=== PATIENT | male | born 1955 | race Caucasian/White ===

== ENCOUNTER 2016-10-31 15:22 | Emergency (ER) | payer OTHER ==
[~2016-10-31] VITALS: Ht 172.7 cm; Wt 144.8 kg
[~2016-10-31 15:22] MED LIST: ALKA SELTZER PO; AMLO-110 PO; ASPEC81 PO; ATEN50TA8 PO; CZR50 PO; ERYT1OIN55 OPR; HOMA5SOL2 OPR; OXYC1TAB3 PO; PANT40TA PO
[2016-10-31 15:29] VITALS: TEMP 36.8; Ht 172.7 cm; Wt 144.8 kg
[2016-10-31] MEDS ORDERED: ZLF/50 PO (15:46)
[2016-10-31] MEDS ORDERED: PREG75CA PO (15:46)
[2016-10-31] MEDS ORDERED: SODIUM CHLORIDE 0.9% 1000ML 1,000 ML IV STA (15:46)
[2016-10-31] MEDS ORDERED: MoRPHine SULFATE 4 MG/ML 1 ML CARP\\VIAL IV STA (15:46)
[2016-10-31] MEDS ORDERED: KLN5X PO (15:46)
--- NOTE | 2016-10-31 15:48 | EMERGENCY ROOM VISIT NOTE ---
History Report prepared by Calvin: Miky De Jesus Under the Supervision of: Dr. Billie Jerome D.O. First contact with patient: 15:28 Chief Complaint: FALL Stated Complaint: FALL, POSSIBLE BROKEN RIBS History of Present Illness The patient is a 60 year old male who presents to the Emergency Room with complaints of right rib pain, secondary to a fall that occurred last night. He rates his pain a 10/10 in severity. At this time, the patient states that he does not think he lost consciousness, but he does not remember falling. Per the , they were at a function yesterday where the patient was play the game "[employer]." When he stepped back to throw a heck bag, his knee popped out of place and fell down. The patient has a past surgical history of titanium rods in his knees. They got his knee back in place and things seemed normal. This is a normal occurrence and happens frequently. He continued enjoying the event and had no new injury/complaints after this fall. When they got home, states he seemed strange and lost his balance. Pt denies noting any specific symptoms other than fatigue when getting out of the car. He fell on the sidewalk face down. Per the patient, this was the fall he did not remember. He just felt unusually tired. After this, per the , she brought him into the house. She states that he was speaking strangely and his mouth looked swollen. However, shortly after this, he returned to baseline. Later in the evening, he fell again in the kitchen. The patient has chronic lower back problems that may require future surgeries. He currently denies any more back pain than usual. He denies any neck pain or pelvic pain. He has a slightly sore forehead from the second fall. He takes Aspirin 81 mg PO daily. He has not taken anything for pain secondary to being out of his Oxycodone prescription that he takes for his lower back and knees. Pt and agree he has been acting normally today. Source of History: patient Onset: Last night Position: chest (right rib) Symptom Intensity: 10/10 Quality: sharp Timing: constant Modifying Factors (Worsening): movement Associated Symptoms: + headache, No LOC, No neck pain, No back pain Note: He denies any arm/shoulder pain. Review of Systems See HPI for pertinent positives & negatives. A total of 10 systems reviewed and were otherwise negative. Past Medical & Surgical Medical Problems: (1) DYSMETABOLIC SYNDROME X (2) HEARTBURN (3) HYPERLIPIDEMIA NEC/NOS (4) HYPERTENSION NOS (5) OBSTRUCTIVE SLEEP APNEA (ADULT) (PEDIATRIC) Family History Omitted secondary to age. Social History Smoking Status: Current Every Day Smoker Alcohol Use: heavy Drug Use: none Marital Status: Housing Status: lives with family Occupation Status: employed Current/Historical Medications Scheduled Amlodipine (Norvasc), 5 MG PO DAILY Aspirin Enteric Coated (Ecotrin Or Generic), 81 MG PO DAILY Atenolol (Tenormin), 50 MG PO QPM Losartan Potassium (Cozaar), 100 MG PO DAILY Oxycodone Ir (Roxicodone Ir), 10 MG PO TID Pantoprazole (Protonix), 40 MG PO BID Sertraline HCl (Sertraline HCl), 50 MG PO DAILY Scheduled PRN Clonazepam (Clonazepam), 0.5 MG PO BID PRN for Anxiety Diazepam (Valium), 2.5 MG PO HS PRN for Pain Hydrocodone/Acetaminophen (Vaughn 10/325 Tab), 1 TAB PO Q6 PRN for Pain Allergies Coded Allergies: Ketorolac Tromethamine (Unverified Allergy, Unknown, BURNING SENSATION, ) Tramadol (Verified Allergy, Unknown, GI UPSET, 10/31/16) Physical Exam Vital Signs Date Time Temp Pulse Resp B/P (MAP) Pulse Ox O2 Delivery O2 Flow Rate FiO2 10/31/16 18:50 78 22 142/88 98 10/31/16 15:29 36.8 95 20 154/93 96 Room Air Physical Exam GENERAL: alert, well appearing, well nourished, no distress, non-toxic EYE EXAM: normal conjunctiva, PERRL and EOM's grossly intact OROPHARYNX: no exudate, no erythema, lips, buccal mucosa, and tongue normal and mucous membranes are moist NECK: supple, no nuchal rigidity, no adenopathy, non-tender LUNGS: Clear to auscultation. Normal chest wall mechanics HEART: no murmurs, S1 normal and S2 normal CHEST: Tenderness along the right inferior anterior ribs. No crepitus or ecchymosis. No evidence of trauma. ABDOMEN: abdomen soft, non-tender, normo-active bowel sounds, no masses, no rebound or guarding. BACK: Back is symmetrical on inspection and there is no deformity, no midline tenderness, no CVA tenderness. SKIN: no rashes and no bruising UPPER EXTREMITIES: upper extremities are grossly normal. No evidence of trauma or joint effusion. LOWER EXTREMITIES: No pitting edema. No evidence of trauma or joint effusion. NEURO EXAM: Normal sensorium, cranial nerves II-XII grossly intact, normal speech, no gross weakness of arms, no gross weakness of legs. Medical Decision & Procedures ER Provider Diagnostic Interpretation: Radiology results have been interpreted by the radiologist and reviewed by me. HEAD CT NONCONTRAST CT DOSE: HISTORY: head injury, LOC TECHNIQUE: Multiaxial CT images of the head were performed without the use of intravenous contrast. Automated exposure control was utilized for this study. Comparison: Head CT 12/05/2014. Findings: The paranasal sinuses and mastoid air cells are clear. The calvarium and skull base are intact. The ventricles and sulci are within normal limits. There is no mass, hematoma, midline shift, or acute infarct. Impression: No acute intracranial abnormality. Electronically signed by: Rojelio Meredith M.D. 10/31/2016 5:21 PM Dictated Date/Time: 10/31/2016 5:[address] DOSE: 4889.15 mGy.cm HISTORY: head injury, loc TECHNIQUE: Multiaxial CT images of the cervical spine were performed and reformatted in the sagittal and coronal plane without the use of contrast. COMPARISON: None. FINDINGS: No fractures. No subluxation. Prevertebral soft tissues and the C1-C2 interval are intact. No pneumothorax. Moderate disc space narrowing at C5-C6 and C6-C7. Mild disc space narrowing at C4-C5. IMPRESSION: No fractures within the cervical spine. Electronically signed by: Rojelio Meredith M.D. 10/31/2016 5:25 PM Dictated Date/Time: 10/31/2016 5:21 PM CHEST, ABDOMEN AND PELVIS CT WITH CONTRAST CT DOSE: HISTORY: right rib pain, short of breath, trauma. Right upper quadrant abdominal pain. TECHNIQUE: Multiaxial CT images of the chest , abdomen and pelvis were performed following the intravenous administration of contrast. COMPARISON: None. FINDINGS: The central airways are patent. No pleural effusions. No pneumothorax. Mild emphysema. A 6 mm groundglass nodule within the left upper lobe on image 42. Calcified granuloma the base of the right middle lobe. Nondisplaced right anterior sixth and seventh rib fractures. Bilateral gynecomastia. The heart is normal in size. No mediastinal or hilar lymphadenopathy. Normal thoracic aorta. Small fat and fluid containing supraumbilical hernias. Small fat-containing right inguinal hernia. Nodular contour to the liver consistent with cirrhosis. The gallbladder, adrenal glands, and pancreas are unremarkable. The spleen is top normal in size. Stable 1.2 cm hypodense lesion within the left kidney. This favors a cyst. The right kidney enhances normally. No hydronephrosis. No retroperitoneal lymphadenopathy. Normal bladder. No bowel wall thickening or obstruction. Trace fluid within the deep pelvis and within the right lower quadrant. Mild infiltration of the fat lateral to the cecum and ascending colon. IMPRESSION: 1. Nondisplaced right anterior sixth and seventh rib fractures. No pneumothorax. 2. A 6 mm groundglass nodule within the left upper lobe. Please refer to the chart below for recommended follow-up. 3. Trace fluid within the pelvic cul-de-sac and within the right lower quadrant. There is also mild infiltration of the fat adjacent to the cecum and ascending colon. This is nonspecific and could be within the right normal limits or represent a developing omental infarct. 4. Additional findings as described above. Please refer to below summary of Fleischner criteria 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s for follow-up of incidental CT nodules (Diana Ramirez, Guidelines for management of small pulmonary nodules detected on CT scans: A statement from the Fleischner Society, Radiology 237: [phone].) SOLID NODULES Solitary nodule size: <6 mm * Low risk patients: no follow-up needed * high risk patients: optional CT at 12 months Solitary nodule size: 6-8 mm * Low risk patients: follow-up at 6-12 months, then consider further follow-up at 18-24 months * high risk patients: initial follow-up CT at 6-12 months and then at 18-24 months if no change Solitary nodule size: >8 mm * either low or high risk patients - consider follow-up CT at 3 months, and/or CT-PET, and/or biopsy Multiple nodules size: <6 mm * Low risk patients: no routine follow-up * high risk patients: optional CT at 12 months Multiple nodules size: 6-8 mm * Low risk patients: follow-up at 3-6 months, then consider further follow-up at 18-24 months * high risk patients: follow-up at 3-6 months, then at 18-24 months if no change Multiple nodules size: >8 mm * Low risk patients: follow-up at 3-6 months, then consider further follow-up at 18-24 months * high risk patients: follow-up at 3-6 months, then at 18-24 months if no change Note: newly detected indeterminate nodule in persons 35 years of age or older. * Low risk patients: minimal or absent history of smoking and/or other known risk factors * high risk patients: history of smoking or of other known risk factors (e.g. first degree relative with lung cancer, or exposure to asbestos, radon, uranium) * if a nodule up to 8 mm is partly solid or is ground glass further follow-up is required after 24 months to exclude possible slow growing adenocarcinoma (CARITO) SUBSOLID NODULES Solitary pure ground-glass nodule * nodule size <6 mm - no CT follow-up required * nodule size >=6 mm - follow-up CT at 6-12 months, then every 2 years until 5 years Solitary part-solid nodule * nodule size <6 mm - no CT follow-up required * nodule size >=6 mm - follow-up CT at 3-6 months. If unchanged, and solid component remains <6 mm, then annual follow-up for 5 years Multiple subsolid nodules * nodule size <6 mm - follow-up CT at 3-6 months, consider further follow-up at 2 and 4 years if stable * nodule size >=6 mm - follow-up CT at 3-6 months, subsequent management based on the most suspicious nodule(s) Electronically signed by: Rojelio Meredith M.D. 10/31/2016 5:45 PM Dictated Date/Time: 10/31/2016 5:25 PM Laboratory Results 10/31/16 16:02 Red Blood Count 4.16, Mean Corpuscular Volume 87.5, Mean Corpuscular Hemoglobin 29.8, Mean Corpuscular Hemoglobin Concent 34.1, Mean Platelet Volume 10.6, Neutrophils (%) (Auto) 61.2, Lymphocytes (%) (Auto) 25.3, Monocytes (%) (Auto) 9.8, Eosinophils (%) (Auto) 2.8, Basophils (%) (Auto) 0.3, Neutrophils # (Auto) 4.45, Lymphocytes # (Auto) 1.84, Monocytes # (Auto) 0.71, Eosinophils # (Auto) 0.20, Basophils # (Auto) 0.02 10/31/16 16:02 Test 10/31/16 16:02 10/31/16 16:12 White Blood Count 7.26 K/uL (4.8-10.8) Red Blood Count 4.16 M/uL (4.7-6.1) Hemoglobin 12.4 g/dL (14.0-18.0) Hematocrit 36.4 % (42-52) Mean Corpuscular Volume 87.5 fL (80-100) Mean Corpuscular Hemoglobin 29.8 pg (25-34) Mean Corpuscular Hemoglobin Concent 34.1 g/dl (32-36) Platelet Count 169 K/uL (130-400) Mean Platelet Volume 10.6 fL (7.4-10.4) Neutrophils (%) (Auto) 61.2 % Lymphocytes (%) (Auto) 25.3 % Monocytes (%) (Auto) 9.8 % Eosinophils (%) (Auto) 2.8 % Basophils (%) (Auto) 0.3 % Neutrophils # (Auto) 4.45 K/uL (1.4-6.5) Lymphocytes # (Auto) 1.84 K/uL (1.2-3.4) Monocytes # (Auto) 0.71 K/uL (0.11-0.59) Eosinophils # (Auto) 0.20 K/uL (0-0.5) Basophils # (Auto) 0.02 K/uL (0-0.2) RDW Standard Deviation 48.5 fL (36.4-46.3) RDW Coefficient of Variation 15.1 % (11.5-14.5) Immature Granulocyte % (Auto) 0.6 % Immature Granulocyte # (Auto) 0.04 K/uL (0.00-0.02) Prothrombin Time 11.8 SECONDS (9.0-12.0) Prothromb Time International Ratio 1.1 (0.9-1.1) Anion Gap 7.0 mmol/L (3-11) Est Creatinine Clear Calc Drug Dose 154.6 ml/min Estimated GFR () 118.3 Estimated GFR (Non- 102.1 BUN/Creatinine Ratio 10.9 (10-20) Calcium Level 8.6 mg/dl (8.5-10.1) Total Bilirubin 0.3 mg/dl (0.2-1) Direct Bilirubin 0.1 mg/dl (0-0.2) Aspartate Amino Transf (AST/SGOT) 34 U/L (15-37) Alanine Aminotransferase (ALT/SGPT) 34 U/L (12-78) Alkaline Phosphatase 139 U/L (45-117) Total Protein 7.4 gm/dl (6.4-8.2) Albumin 3.0 gm/dl (3.4-5.0) Lipase 115 U/L (73-393) Bedside Troponin I < 0.030 ng/ml (0-0.045) Laboratory results per my review. Medications Administered Medications (Trade) Dose Ordered Sig/Brandee Route Start Time Stop Time Status Last Admin Dose Admin Morphine Sulfate (MoRPHine SULFATE INJ) 4 mg NOW STAT IV 10/31/16 15:46 10/31/16 15:50 DC 10/31/16 16:09 4 MG Sodium Chloride 1,000 ml @ 200 mls/hr Q5H STAT IV 10/31/16 15:46 10/31/16 19:20 DC 10/31/16 16:04 200 MLS/HR Acetaminophen/ Hydrocodone Bitart (Vaughn 5/325 Tab) 1 tab NOW STAT PO 10/31/16 18:02 10/31/16 18:04 DC 10/31/16 18:38 1 TAB Diazepam (Valium Tab) 5 mg NOW ONCE PO 10/31/16 18:15 10/31/16 18:16 DC 10/31/16 18:37 5 MG Acetaminophen/ Hydrocodone Bitart (Vaughn 5/325mg Home Pack) 1 homepack STK-MED ONCE .ROUTE 10/31/16 18:32 10/31/16 18:33 DC 10/31/16 18:38 1 HOMEPACK ECG Indication: chest pain Rate (beats per minute): 74 Rhythm: sinus rhythm Findings: no acute ischemic change, other (Normal axis, normal intervals) ED Course 1528: The patient was evaluated in room A10. A complete history and physical exam was performed. 1546: Ordered Sodium Chloride 1000 ml @ 200 mls/hr IV, Morphine Sulfate 4 mg IV 1801: Upon reevaluation, the patient is feeling better. I updated him on his results. I discussed the findings and the treatment plan with the patient. He verbalizes agreement and understanding. His ready to be discharged home. Ordered Vaughn 5/325 Tab 1 tab PO. 1814:Ordered Valium Tab 5 mg PO Medical Decision Differential diagnoses include major intracranial, cervical, spinal, thoracic, abdominal, pelvic and neurologic injury. Fracture, contusion, sprain, strain, laceration, abrasions included as well. Medication Reconciliation: I attest that I have personally reviewed the patient' s current medication list. Blood pressure screening: Patient was found to have a slightly elevated blood pressure due to circumstances. I do not believe that the patient requires hypertension monitoring. Pain most likely from rib fractures due to fall. No other prodromal symptoms to suggest syncope. Pt with mild fatigue after being outside all day, no other prodromal symptoms to suggest syncope. No focal neuro deficits to suggest cva. Facial swelling noted by resolved and was likely secondary to fall. Labs otw reassuring and no other additional traumatic injury noted. Doubt cardiac etiology, doubt occult infectious etiology, doubt vascular etiology. Discussed all results with pt. Discussed f/u with PCP. Discussed hydration, use of incentive spirometer, sx to watch/return for, he verbalized understanding and was agreeable with plan. Pt likely hypertensive due to pain, advised close f/u with PCP. Pt well appearing at time of DC. Pain controlled, no hypoxia, no increased WOB. Impression Primary Impression: Fall Additional Impression: Closed rib fracture Scribe Attestation The scribe's documentation has been prepared under my direction and personally reviewed by me in its entirety. I confirm that the note above accurately reflects all work, treatment, procedures, and medical decision making performed by me. Departure Information Dispostion Home / Self-Care Prescriptions Diazepam (Valium) 5 Mg Tab 2.5 MG PO HS Y for Pain, #10 TAB Prov: Billie Jerome, 10/31/16 Hydrocodone/Acetaminophen (Vaughn 10/325 Tab) 1 Tab Tab 1 TAB PO Q6 Y for Pain, #15 TAB Prov: Billie Jerome, 10/31/16 Referrals Karlie Bates DO (PCP) Forms HOME CARE DOCUMENTATION FORM, IMPORTANT VISIT INFORMATION Patient Instructions My Ana Bojorquez [facility] Additional Instructions Please follow up with her family doctor to reevaluate her symptoms in light of the recent injury. Please use the incentive spirometer each hour while you are awake to help prevent atelectasis or pneumonia. You may use the pain medication and muscle relaxer as prescribed. Do not take them and drive. Please be cautious when taking them together as they can exacerbate the effects of dizziness and drowsiness. Please watch for any adverse reactions including constipation. Please make sure you're drinking plenty of water. Please avoid prolonged sun exposure as this can lead to weakness, fatigue, dizziness also. If you have any worsening pain, develop fevers, vomiting, worsening cough, have increased weakness or dizziness, difficulty walking, palpitations, headaches, vision changes, feel you are confused in any way, you have any other new concerns, please return the emergency room. Please also discussed the nodule noted on your CAT scan in your lung with your family doctor. You will likely need follow-up imaging as an outpatient. Problem Qualifiers Primary Impression: Fall Encounter type: initial encounter Qualified Codes: W19.XXXA - Unspecified fall, initial encounter Additional Impression: Closed rib fracture Encounter type: initial encounter Rib fracture type: multiple ribs Laterality: right Qualified Codes: S22.41XA - Multiple fractures of ribs, right side, initial encounter for closed fracture
[2016-10-31 16:18] LABS: BASO % 0.3 %; BASO ABS # 0.02 K/uL (0-0.2); COMPLETE YES; EOS % 2.8 %; HEMATOCRIT 36.4 % (42-52); IG% 0.6 %; LYMPH % 25.3 %; LYMPH ABS # 1.84 K/uL (1.2-3.4); MEAN CELL VOLUME 87.5 fL (80-100); MEAN CORPUSCULAR HEMOGLOBIN 29.8 pg (25-34); MEAN CORPUSCULAR HGB CONC 34.1 g/dl (32-36); MEAN PLATELET VOLUME 10.6 fL (7.4-10.4); MONO % 9.8 %; NEUT % 61.2 %; PLATELET COUNT 169 K/uL (130-400); RED BLOOD COUNT 4.16 M/uL (4.7-6.1); WHITE BLOOD COUNT 7.26 K/uL (4.8-10.8)
[2016-10-31] MEDS ORDERED: ASPI81TA21 PO (16:28)
[2016-10-31] MEDS ORDERED: LOSA1TAB38 PO (16:28)
[2016-10-31 16:48] LABS: INR 1.1 (0.9-1.1); PROTHROMBIN TIME (PATIENT) 11.8 SECONDS (9.0-12.0)
[2016-10-31 16:50] LABS: BUN/CREATININE RATIO 10.9 (10-20); CALCIUM 8.6 mg/dl (8.5-10.1); CREATININE 0.72 mg/dl (0.60-1.40); POTASSIUM 4.5 mmol/L (3.5-5.1)
[2016-10-31] MEDS ORDERED: OPTIRAY 320 IV PRN (17:15)
--- NOTE | 2016-10-31 17:22 | DIAGNOSTIC IMAGING REPORT ---
HEAD CT NONCONTRAST CT DOSE: HISTORY: head injury, LOC TECHNIQUE: Multiaxial CT images of the head were performed without the use of intravenous contrast. Automated exposure control was utilized for this study. Comparison: Head CT 12/05/2014. Findings: The paranasal sinuses and mastoid air cells are clear. The calvarium and skull base are intact. The ventricles and sulci are within normal limits. There is no mass, hematoma, midline shift, or acute infarct. Impression: No acute intracranial abnormality. Electronically signed by: Rojelio Meredith M.D. 10/31/2016 5:21 PM Dictated Date/Time: 10/31/2016 5:18 PM
--- NOTE | 2016-10-31 17:26 | DIAGNOSTIC IMAGING REPORT ---
CERVICAL SPINE CT CT DOSE: 4889.15 mGy.cm HISTORY: head injury, loc TECHNIQUE: Multiaxial CT images of the cervical spine were performed and reformatted in the sagittal and coronal plane without the use of contrast. COMPARISON: None. FINDINGS: No fractures. No subluxation. Prevertebral soft tissues and the C1-C2 interval are intact. No pneumothorax. Moderate disc space narrowing at C5-C6 and C6-C7. Mild disc space narrowing at C4-C5. IMPRESSION: No fractures within the cervical spine. Electronically signed by: Rojelio Meredith M.D. 10/31/2016 5:25 PM Dictated Date/Time: 10/31/2016 5:21 PM
[2016-10-31] MEDS ORDERED: RISPERIDONE 1 MG TAB PO ONE (17:45)
--- NOTE | 2016-10-31 17:47 | DIAGNOSTIC IMAGING REPORT ---
CHEST, ABDOMEN AND PELVIS CT WITH CONTRAST CT DOSE: HISTORY: right rib pain, short of breath, trauma. Right upper quadrant abdominal pain. TECHNIQUE: Multiaxial CT images of the chest , abdomen and pelvis were performed following the intravenous administration of contrast. COMPARISON: None. FINDINGS: The central airways are patent. No pleural effusions. No pneumothorax. Mild emphysema. A 6 mm groundglass nodule within the left upper lobe on image 42. Calcified granuloma the base of the right middle lobe. Nondisplaced right anterior sixth and seventh rib fractures. Bilateral gynecomastia. The heart is normal in size. No mediastinal or hilar lymphadenopathy. Normal thoracic aorta. Small fat and fluid containing supraumbilical hernias. Small fat-containing right inguinal hernia. Nodular contour to the liver consistent with cirrhosis. The gallbladder, adrenal glands, and pancreas are unremarkable. The spleen is top normal in size. Stable 1.2 cm hypodense lesion within the left kidney. This favors a cyst. The right kidney enhances normally. No hydronephrosis. No retroperitoneal lymphadenopathy. Normal bladder. No bowel wall thickening or obstruction. Trace fluid within the deep pelvis and within the right lower quadrant. Mild infiltration of the fat lateral to the cecum and ascending colon. IMPRESSION: 1. Nondisplaced right anterior sixth and seventh rib fractures. No pneumothorax. 2. A 6 mm groundglass nodule within the left upper lobe. Please refer to the chart below for recommended follow-up. 3. Trace fluid within the pelvic cul-de-sac and within the right lower quadrant. There is also mild infiltration of the fat adjacent to the cecum and ascending colon. This is nonspecific and could be within the right normal limits or represent a developing omental infarct. 4. Additional findings as described above. Please refer to below summary of Fleischner criteria 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s for follow-up of incidental CT nodules (Diana Ramirez, Guidelines for management of small pulmonary nodules detected on CT scans: A statement from the Fleischner Society, Radiology 237: [phone].) SOLID NODULES Solitary nodule size: <6 mm * Low risk patients: no follow-up needed * high risk patients: optional CT at 12 months Solitary nodule size: 6-8 mm * Low risk patients: follow-up at 6-12 months, then consider further follow-up at 18-24 months * high risk patients: initial follow-up CT at 6-12 months and then at 18-24 months if no change Solitary nodule size: >8 mm * either low or high risk patients - consider follow-up CT at 3 months, and/or CT-PET, and/or biopsy Multiple nodules size: <6 mm * Low risk patients: no routine follow-up * high risk patients: optional CT at 12 months Multiple nodules size: 6-8 mm * Low risk patients: follow-up at 3-6 months, then consider further follow-up at 18-24 months * high risk patients: follow-up at 3-6 months, then at 18-24 months if no change Multiple nodules size: >8 mm * Low risk patients: follow-up at 3-6 months, then consider further follow-up at 18-24 months * high risk patients: follow-up at 3-6 months, then at 18-24 months if no change Note: newly detected indeterminate nodule in persons 35 years of age or older. * Low risk patients: minimal or absent history of smoking and/or other known risk factors * high risk patients: history of smoking or of other known risk factors (e.g. first degree relative with lung cancer, or exposure to asbestos, radon, uranium) * if a nodule up to 8 mm is partly solid or is ground glass further follow-up is required after 24 months to exclude possible slow growing adenocarcinoma (CARITO) SUBSOLID NODULES Solitary pure ground-glass nodule * nodule size <6 mm - no CT follow-up required * nodule size >=6 mm - follow-up CT at 6-12 months, then every 2 years until 5 years Solitary part-solid nodule * nodule size <6 mm - no CT follow-up required * nodule size >=6 mm - follow-up CT at 3-6 months. If unchanged, and solid component remains <6 mm, then annual follow-up for 5 years Multiple subsolid nodules * nodule size <6 mm - follow-up CT at 3-6 months, consider further follow-up at 2 and 4 years if stable * nodule size >=6 mm - follow-up CT at 3-6 months, subsequent management based on the most suspicious nodule(s) Electronically signed by: Rojelio Meredith M.D. 10/31/2016 5:45 PM Dictated Date/Time: 10/31/2016 5:25 PM
[2016-10-31] MEDS ORDERED: HYDROCODONE/ACETAMOPHEN 5/325MG TAB PO STA (18:02)
[2016-10-31] MEDS ORDERED: HYDR-4383 PO (18:09)
[2016-10-31] MEDS ORDERED: DIAZ-165 PO (18:09)
[2016-10-31] MEDS ORDERED: DIAZEPAM 5MG TAB PO ONE (18:15)
[2016-10-31] MEDS ORDERED: NORCO 5/325MG HOME PACK ONE (18:32)
[2016-10-31 18:50] VITALS: BP 142/88; PULSE 78; O2SAT 98
== END 2016-10-31 18:53 | disposition home or self-care (01) ==
LOC: C.EDB 15:25 → C.EDA 18:53
DX: S22.31XA Fracture of one rib, right side, initial encounter for closed fracture (principal); W22.8XXA Striking against or struck by other objects, initial encounter; I10 Essential (primary) hypertension; E78.5 Hyperlipidemia, unspecified; G47.33 Obstructive sleep apnea (adult) (pediatric); F17.200 Nicotine dependence, unspecified, uncomplicated; Z79.82 Long term (current) use of aspirin; Z79.899 Other long term (current) drug therapy; Z88.8 Allergy status to other drugs, medicaments and biological substances

== ENCOUNTER 2016-11-27 18:42 | Observation (INO) | payer OTHER ==
[~2016-11-27] VITALS: Ht 175.3 cm; Wt 141.9 kg
[~2016-11-27 18:42] MED LIST changes: -ALKA SELTZER PO; -ASPEC81 PO; +ASPI81TA21 PO; -CZR50 PO; +DIAZ-165 PO; -ERYT1OIN55 OPR; -HOMA5SOL2 OPR; +HYDR-4383 PO; +KLN5X PO; +LOSA1TAB38 PO; +ZLF/50 PO
[2016-11-27 19:07] LABS: BASO % 0.2 %; BASO ABS # 0.02 K/uL (0-0.2); COMPLETE YES; EOS % 2.1 %; HEMATOCRIT 37.1 % (42-52); IG% 0.8 %; LYMPH % 27.1 %; LYMPH ABS # 3.43 K/uL (1.2-3.4); MEAN CELL VOLUME 87.5 fL (80-100); MEAN CORPUSCULAR HEMOGLOBIN 30.7 pg (25-34); MEAN PLATELET VOLUME 10.8 fL (7.4-10.4); MONO % 9.2 %; NEUT % 60.6 %; PLATELET COUNT 235 K/uL (130-400); RED BLOOD COUNT 4.24 M/uL (4.7-6.1); WHITE BLOOD COUNT 12.67 K/uL (4.8-10.8)
--- NOTE | 2016-11-27 19:15 | DIAGNOSTIC IMAGING REPORT ---
CHEST ONE VIEW PORTABLE CLINICAL HISTORY: AMS dyspnea COMPARISON STUDY: No previous studies for comparison. FINDINGS: The bones soft tissues and hemidiaphragms are normal. The cardiomediastinal silhouette is normal. The lungs are clear. The pulmonary vasculature is normal. IMPRESSION: Negative chest. The above report was generated using voice recognition software. It may contain grammatical, syntax or spelling errors. Electronically signed by: Jordan Bojorquez M.D. 11/27/2016 7:14 PM Dictated Date/Time: 11/27/2016 7:14 PM
[2016-11-27 19:29] LABS: ALT/SGPT 57 U/L (12-78); BLOOD UREA NITROGEN 11 mg/dl (7-18); BUN/CREATININE RATIO 11.1 (10-20); CHLORIDE 100 mmol/L (98-107); GLUCOSE 134 mg/dl (70-99); SODIUM 131 mmol/L (136-145)
[2016-11-27 19:30] LABS: ALKALINE PHOSPHATASE 168 U/L (45-117); CARBON DIOXIDE 19 mmol/L (21-32); CREATININE 0.96 mg/dl (0.60-1.40)
[2016-11-27 19:34] LABS: POTASSIUM 4.4 mmol/L (3.5-5.1)
[2016-11-27] MEDS ORDERED: ALBUTEROL 0.083% NEBU SOLN 3 ML VIAL INH STA (19:35)
--- NOTE | 2016-11-27 19:35 | DIAGNOSTIC IMAGING REPORT ---
HEAD WITHOUT CONTRAST (CT) CT DOSE: 614.27 mGy.cm HISTORY: Mental status change AMS TECHNIQUE: Multiaxial CT images of the head were performed without the use of intravenous contrast. Comparison: 10/31/2016 Findings: The paranasal sinuses and mastoid air cells are clear. The calvarium and skull base are intact. The ventricles and sulci are within normal limits. There is no mass, hematoma, midline shift, or acute infarct. Impression: No acute intracranial abnormality. No change from the prior exam The above report was generated using voice recognition software. It may contain grammatical, syntax or spelling errors. Electronically signed by: Jordan Bojorquez M.D. 11/27/2016 7:33 PM Dictated Date/Time: 11/27/2016 7:32 PM
[2016-11-27 19:37] LABS: AST/SGOT 65 U/L (15-37)
[2016-11-27] MEDS ORDERED: ASPIRIN 81 MG CHEW PO STA (19:37)
[2016-11-27] MEDS ORDERED: SODIUM CHLORIDE 0.9% 1000ML 1,000 ML IV STA (19:37)
[2016-11-27 20:31] LABS: INR 1.1 (0.9-1.1); PARTIAL THROMBOPLASTIN RATIO 1.1; PROTHROMBIN TIME (PATIENT) 12.1 SECONDS (9.0-12.0)
[2016-11-27] MEDS ORDERED: OPTIRAY 320 IV PRN (21:00)
--- NOTE | 2016-11-27 21:55 | DIAGNOSTIC IMAGING REPORT ---
(CHEST FOR PE) ANGIO WITH CT DOSE: 774.52 mGy.cm HISTORY: Chest pain dyspnea TECHNIQUE: Multiaxial CT images of the chest were performed following the intravenous administration of contrast to evaluate the pulmonary arteries. Maximal intensity projection images were also obtained. COMPARISON STUDY: None. FINDINGS: There is a normal caliber thoracic aorta with no evidence for dissection. There is no evidence for pulmonary embolus. No pleural effusions. No pneumothorax. The liver and spleen are unremarkable. No mediastinal or hilar lymphadenopathy. The central airways are patent. The lungs are clear. Mild peribronchial thickening noted is made of 5 pre-existing fractures right sixth and seventh ribs with the eighth rib now showing evidence for a nondisplaced cortical fracture. IMPRESSION: No evidence for pulmonary embolus. Lungs are considered clear. Mild peribronchial thickening. Pre-existing fractures of the right sixth and seventh ribs. Apparent interval or new fracture right eighth rib. The above report was generated using voice recognition software. It may contain grammatical, syntax or spelling errors. Electronically signed by: Jordan Bojorquez M.D. 11/27/2016 9:54 PM Dictated Date/Time: 11/27/2016 9:49 PM
[2016-11-27 22:21] LABS: URINE APPEARANCE CLEAR (CLEAR); URINE BILIRUBIN NEG (NEG); URINE COLOR YELLOW; URINE NITRITE NEG (NEG); URINE SPECIFIC GRAVITY 1.018 (1.000-1.030); UROBILINOGEN NEG (NEG); ZZUR CULT IF INDIC CLEAN CATCH NO
[2016-11-27] MEDS ORDERED: SODIUM CHLORIDE 0.9% 500ML 500 ML IV STA (22:28)
[2016-11-27 22:40] LABS: MANUAL MICROSCOPIC REQUIRED? NO; REVIEW REQ? NO
[2016-11-27] MEDS ORDERED: LORAZEPAM 2 MG/ML 1 ML VIAL IV STA (22:58)
[2016-11-27] MEDS ORDERED: HALOPERIDOL LACTATE 5 MG/ML 1 ML VIAL IV STA (22:58)
[2016-11-28] MEDS ORDERED: POLYETHYLENE (MIRALAX) 17 GM PACK PO PRN (00:15)
[2016-11-28] MEDS ORDERED: ACETAMINOPHEN 325 MG TAB PO PRN (00:15)
[2016-11-28] MEDS ORDERED: NITROGLYCERIN 0.4 MG SL PER TAB CHARGE SL PRN (00:15)
[2016-11-28] MEDS ORDERED: GLUCAGON FOR INJ 1 MG VIAL SQ PRN (00:15)
[2016-11-28] MEDS ORDERED: ONDANSETRON INJ 2 MG/ML 2 ML VIAL IV PRN (00:15)
[2016-11-28] MEDS ORDERED: GLUCOSE 10 TABS/TUBE PO PRN (00:15)
[2016-11-28] MEDS ORDERED: DEXTROSE 50% 50 ML SYR IV PRN (00:15)
[2016-11-28] MEDS ORDERED: GLUCOSE 40% GEL 15 GM TUBE PO PRN (00:15)
--- NOTE | 2016-11-28 00:21 | EMERGENCY ROOM VISIT NOTE ---
History Report prepared by Scribe: Fela Santoro Under the Supervision of: Dr. Mike Lee D.O. First contact with patient: 18:43 Stated Complaint: CHEST PAIN, SYNCOPE X 2 History of Present Illness The patient is a 61 year old male who presents to the Emergency Room with complaints of persistent chest pain for the past 4 weeks. He was brought to the ED via EMS and is accompanied by his . The patient states he has been experiencing chest pain and worsening shortness of breath for the past 4 weeks as he currently has several broken ribs. He rates his pain as an 8/10. This afternoon at a family gathering, he felt like he was unable to take a deep breath, so his family called EMS. His states she was told during the gathering that the patient was laying on his bed because he "could not breathe" . She states several family members tried to talk to him at one point, and he was "unresponsive". The patient admits to drinking "a couple of beers" from approximately 3pm on. He denies any recent surgeries, hemoptysis, swelling of legs, previous blood clots, or travel. He has a history of diabetes and hypertension but denies any history of cardiac disease. The patient denies any headache, change in vision, fevers, nausea, vomiting, diarrhea, pain with urination, and melena. Source of History: patient, spouse/significant other () Onset: [employer] Position: chest Symptom Intensity: 8/10 Timing: other (persistent) Associated Symptoms: + chest pain, + SOB, No fevers, No headache, No nausea , No vomiting, No melena, No diarrhea, No urinary symptoms Review of Systems See HPI for pertinent positives & negatives. A total of 10 systems reviewed and were otherwise negative. Past Medical & Surgical Medical Problems: (1) Chest pain (2) DYSMETABOLIC SYNDROME X (3) HEARTBURN (4) HYPERLIPIDEMIA NEC/NOS (5) HYPERTENSION NOS (6) OBSTRUCTIVE SLEEP APNEA (ADULT) (PEDIATRIC) Social History Smoking Status: Current Every Day Smoker Alcohol Use: heavy Drug Use: none Marital Status: Housing Status: lives with family Occupation Status: employed Current/Historical Medications Scheduled Amlodipine (Norvasc), 5 MG PO DAILY Aspirin Enteric Coated (Ecotrin Or Generic), 81 MG PO DAILY Atenolol (Tenormin), 50 MG PO QPM Losartan Potassium (Cozaar), 100 MG PO DAILY Oxycodone Ir (Roxicodone Ir), 10 MG PO TID Pantoprazole (Protonix), 40 MG PO BID Sertraline HCl (Sertraline HCl), 50 MG PO DAILY Scheduled PRN Clonazepam (Clonazepam), 0.5 MG PO BID PRN for Anxiety Diazepam (Valium), 2.5 MG PO HS PRN for Pain Allergies Coded Allergies: Ketorolac Tromethamine (Unverified Allergy, Unknown, BURNING SENSATION, ) Tramadol (Verified Allergy, Unknown, GI UPSET, 10/31/16) Physical Exam Vital Signs Date Time Temp Pulse Resp B/P (MAP) Pulse Ox O2 Delivery O2 Flow Rate FiO2 11/27/16 23:25 99 11/27/16 22:36 98 20 97 11/27/16 22:33 117/64 11/27/16 22:06 116 20 11/27/16 21:36 97 19 96 11/27/16 21:06 104 16 94 11/27/16 21:01 90/69 11/27/16 20:47 121 21 95 11/27/16 20:31 136/76 11/27/16 20:17 99 18 96 11/27/16 20:12 97 17 94 11/27/16 20:01 104/64 11/27/16 19:51 124/67 11/27/16 19:49 132/71 11/27/16 19:42 94 15 11/27/16 19:38 96 11/27/16 19:33 120/65 11/27/16 19:12 98 11/27/16 18:59 Room Air 11/27/16 18:51 36.6 100 23 120/63 93 Room Air 11/27/16 18:45 120/63 Physical Exam GENERAL: Patient is sitting up in bed, alert, disheveled, obese. EYE EXAM: normal conjunctiva, PERRL and EOM's grossly intact OROPHARYNX: no exudate, no erythema, lips, buccal mucosa, and tongue normal and mucous membranes are moist NECK: supple, no nuchal rigidity, no adenopathy, non-tender LUNGS: Mild diffuse wheezing bilaterally. Normal chest wall mechanics HEART: no murmurs, S1 normal and S2 normal ABDOMEN: abdomen soft, non-tender, normo-active bowel sounds, no masses, no rebound or guarding. BACK: Back is symmetrical on inspection and there is no deformity, no midline tenderness, no CVA tenderness. SKIN: no rashes and no bruising UPPER EXTREMITIES: upper extremities are grossly normal. LOWER EXTREMITIES: No pitting edema. NEURO EXAM: Patient is awake, alert, oriented to person, place but not year. Cranial nerves II-XII intact, normal speech, no weakness of arms, no weakness of legs. No drift. Finger to nose intact. Gross sensation intact. Medical Decision & Procedures ER Provider Diagnostic Interpretation: Radiology results as stated below per my review and the radiologist's interpretation: CHEST ONE VIEW PORTABLE CLINICAL HISTORY: AMS dyspnea COMPARISON STUDY: No previous studies for comparison. FINDINGS: The bones soft tissues and hemidiaphragms are normal. The cardiomediastinal silhouette is normal. The lungs are clear. The pulmonary vasculature is normal. IMPRESSION: Negative chest. The above report was generated using voice recognition software. It may contain grammatical, syntax or spelling errors. Electronically signed by: Jordan Bojorquez M.D. 11/27/2016 7:14 PM HEAD WITHOUT CONTRAST (CT) CT DOSE: 614.27 mGy.cm HISTORY: Mental status change AMS TECHNIQUE: Multiaxial CT images of the head were performed without the use of intravenous contrast. Comparison: 10/31/2016 Findings: The paranasal sinuses and mastoid air cells are clear. The calvarium and skull base are intact. The ventricles and sulci are within normal limits. There is no mass, hematoma, midline shift, or acute infarct. Impression: No acute intracranial abnormality. No change from the prior exam The above report was generated using voice recognition software. It may contain grammatical, syntax or spelling errors. Electronically signed by: Jordan Bojorquez M.D. 11/27/2016 7:33 PM (CHEST FOR PE) ANGIO WITH CT DOSE: 774.52 mGy.cm HISTORY: Chest pain dyspnea TECHNIQUE: Multiaxial CT images of the chest were performed following the intravenous administration of contrast to evaluate the pulmonary arteries. Maximal intensity projection images were also obtained. COMPARISON STUDY: None. FINDINGS: There is a normal caliber thoracic aorta with no evidence for dissection. There is no evidence for pulmonary embolus. No pleural effusions. No pneumothorax. The liver and spleen are unremarkable. No mediastinal or hilar lymphadenopathy. The central airways are patent. The lungs are clear. Mild peribronchial thickening noted is made of 5 pre-existing fractures right sixth and seventh ribs with the eighth rib now showing evidence for a nondisplaced cortical fracture. IMPRESSION: No evidence for pulmonary embolus. Lungs are considered clear. Mild peribronchial thickening. Pre-existing fractures of the right sixth and seventh ribs. Apparent interval or new fracture right eighth rib. The above report was generated using voice recognition software. It may contain grammatical, syntax or spelling errors. Electronically signed by: Jordan Bojorquez M.D. 11/27/2016 9:54 PM Laboratory Results 11/27/16 18:45 Red Blood Count 4.24, Mean Corpuscular Volume 87.5, Mean Corpuscular Hemoglobin 30.7, Mean Corpuscular Hemoglobin Concent 35.0, Mean Platelet Volume 10.8, Neutrophils (%) (Auto) 60.6, Lymphocytes (%) (Auto) 27.1, Monocytes (%) (Auto) 9.2, Eosinophils (%) (Auto) 2.1, Basophils (%) (Auto) 0.2, Neutrophils # (Auto) 7.68, Lymphocytes # (Auto) 3.43, Monocytes # (Auto) 1.17, Eosinophils # (Auto) 0.27, Basophils # (Auto) 0.02 11/27/16 18:45 Test 11/27/16 18:45 11/27/16 19:15 11/27/16 19:50 11/27/16 21:55 White Blood Count 12.67 K/uL (4.8-10.8) Red Blood Count 4.24 M/uL (4.7-6.1) Hemoglobin 13.0 g/dL (14.0-18.0) Hematocrit 37.1 % (42-52) Mean Corpuscular Volume 87.5 fL (80-100) Mean Corpuscular Hemoglobin 30.7 pg (25-34) Mean Corpuscular Hemoglobin Concent 35.0 g/dl (32-36) Platelet Count 235 K/uL (130-400) Mean Platelet Volume 10.8 fL (7.4-10.4) Neutrophils (%) (Auto) 60.6 % Lymphocytes (%) (Auto) 27.1 % Monocytes (%) (Auto) 9.2 % Eosinophils (%) (Auto) 2.1 % Basophils (%) (Auto) 0.2 % Neutrophils # (Auto) 7.68 K/uL (1.4-6.5) Lymphocytes # (Auto) 3.43 K/uL (1.2-3.4) Monocytes # (Auto) 1.17 K/uL (0.11-0.59) Eosinophils # (Auto) 0.27 K/uL (0-0.5) Basophils # (Auto) 0.02 K/uL (0-0.2) RDW Standard Deviation 46.6 fL (36.4-46.3) RDW Coefficient of Variation 14.5 % (11.5-14.5) Immature Granulocyte % (Auto) 0.8 % Immature Granulocyte # (Auto) 0.10 K/uL (0.00-0.02) Anion Gap 12.0 mmol/L (3-11) Est Creatinine Clear Calc Drug Dose 119.6 ml/min Estimated GFR () 99.2 Estimated GFR (Non- 85.6 BUN/Creatinine Ratio 11.1 (10-20) Calcium Level 9.0 mg/dl (8.5-10.1) Total Bilirubin 0.3 mg/dl (0.2-1) Direct Bilirubin 0.1 mg/dl (0-0.2) Aspartate Amino Transf (AST/SGOT) 65 U/L (15-37) Alanine Aminotransferase (ALT/SGPT) 57 U/L (12-78) Alkaline Phosphatase 168 U/L (45-117) Troponin I < 0.015 ng/ml (0-0.045) Total Protein 8.2 gm/dl (6.4-8.2) Albumin 3.3 gm/dl (3.4-5.0) Ethyl Alcohol mg/dL 292.0 mg/dl (0-3) Prothrombin Time 12.1 SECONDS (9.0-12.0) Prothromb Time International Ratio 1.1 (0.9-1.1) Activated Partial Thromboplast Time 29.2 SECONDS (21.0-31.0) Partial Thromboplastin Ratio 1.1 D-Dimer 740 ug/L FEU (0-500) Urine Color YELLOW Urine Appearance CLEAR (CLEAR) Urine pH 5.0 (4.5-7.5) Urine Specific [place] 1.018 (1.000-1.030) Urine Protein NEG (NEG) Urine Glucose (UA) NEG (NEG) Urine Ketones NEG (NEG) Urine Occult Blood NEG (NEG) Urine Nitrite NEG (NEG) Urine Bilirubin NEG (NEG) Urine Urobilinogen NEG (NEG) Urine Leukocyte Esterase NEG (NEG) Laboratory results per my review. Medications Administered Medications (Trade) Dose Ordered Sig/Brandee Route Start Time Stop Time Status Last Admin Dose Admin Albuterol Sulfate (Ventolin 0.083% 2.5MG/3ML Neb) 2.5 mg NOW STAT INH 11/27/16 19:35 11/27/16 19:36 DC 11/27/16 19:54 2.5 MG Aspirin (Aspirin Chew) 324 mg NOW STAT PO 11/27/16 19:37 11/27/16 19:38 DC 11/27/16 19:54 324 MG Sodium Chloride 1,000 ml @ 999 mls/hr Q1H1M STAT IV 11/27/16 19:37 11/27/16 20:37 DC 11/27/16 19:00 999 MLS/HR Sodium Chloride 500 ml @ 999 mls/hr Q31M STAT IV 11/27/16 22:28 11/27/16 22:58 DC 11/27/16 22:38 999 MLS/HR Haloperidol Lactate (Haldol Inj) 5 mg NOW STAT IV 11/27/16 22:58 11/27/16 22:59 DC 11/27/16 23:05 5 MG Lorazepam (Ativan Inj) 1 mg NOW STAT IV 11/27/16 22:58 11/27/16 22:59 DC 11/27/16 23:05 1 MG ECG Indication: chest pain Rate (beats per minute): 100 Rhythm: sinus tachycardia Findings: no ectopy, other (normal axis, normal intervals) ED Course ED COURSE: Vital signs were reviewed and showed the patient is tachycardic, but otherwise normal vitals. The patients medical record was reviewed The above diagnostic studies were performed and reviewed. ED treatments and interventions as stated above. 1843: The patient was evaluated in room A2. A complete history and physical examination was performed. 1934: Albuterol Sulfate 2.5 mg INH. 1936: NSS 1000 ml @ 999 mls/hr IV, Aspirin 324 mg PO. 2228: NSS 500 ml @ 999 mls/hr IV. 2230: I updated the patient on his results so far. He and his family verbalized complete understanding and agreement. 2250: I had a prolonged conversation with the patients family. The patient is requesting to go home. I explained the risks and benefits associated with hypotension and syncope. He and his family are agreeable to the patient remaining in the hospital for further evaluation and management. 2258: Ativan 1 mg IV, Haldol 5 mg IV. 2330: Upon reevaluation, the patient is resting comfortably. I discussed my findings with the patient and his family and they understand and agrees with the treatment plan. 2335: I [facility] the patients [facility] The patient will be further evaluated. Based on the patients age, coexisting illnesses, exam and lab findings the decision to treat as an inpatient was made. The patient remained stable while under my care. The patient will be evaluated for further management. Medical Decision Medication Reconciliation: I attest that I have personally reviewed the patient' s current medication list. Blood pressure screening: Patient was found to have normal blood pressure on screening and does not require follow-up. Differential diagnoses includes but is not limited to acute coronary syndrome, myocardial infarction, pericarditis, pulmonary embolus, aortic dissection, pneumonia, pneumothorax, musculoskeletal, shingles, esophageal. Patient was a 61-year-old male that presents the ER following 2 syncopal episodes tonight with associated chest pain shortness of breath. He admits that he has right-sided chest pain following rib fractures but this chest pain was different and in the middle of his chest. He also had associated shortness of breath. Patient has no PE risk factors. He does have risk factors for CAD. Upon presentation for EMS systolic pressures were in the 80s. Upon presentation here systolic pressures were in the 90s. He was given a bolus normal saline. He did admit to drinking alcohol. Labs show a leukocytosis of 12,000. BMP shows a CO2 of 19 likely secondary to alcohol. Troponin was negative. EKG was nondiagnostic. D-dimer was positive and CT PE was performed which was negative. It did show interstitial thickening suggesting bronchitis. Patient did become agitated and after discussion with family and preferred that he stay for observation. I did feel this was reasonable with the chest pain, shortness breath and syncope. I do favor is likely secondary to alcohol intoxication. Patient was given Haldol and Ativan as he became extremely agitated and was unable to verbally deescalate after multiple attempts. Patient was noted to internal medicine. Consults Time Called: 2329 Consulting Physician: Naz Bajwa Hospitalist Returned Call: [phone] I discussed the patients case with Naz Bajwa Hospitalist. The patient will be further evaluated. Impression Primary Impression: Syncope Additional Impressions: Alcohol intoxication Chest pain Shortness of breath Critical Care I have personally spent 35 minutes of critical care time in the direct management of this patient. This includes bedside care, interpretation of diagnostic studies, and testing, discussion with consultants, patient, and family members, and other required patient management activities. This 35 minutes is in excess of all separately billable procedures. Scribe Attestation The scribe's documentation has been prepared under my direction and personally reviewed by me in its entirety. I confirm that the note above accurately reflects all work, treatment, procedures, and medical decision making performed by me. Departure Information Dispostion Being Evaluated By Hospitalist Referrals Karlie Bates DO (PCP) Problem Qualifiers Primary Impression: Syncope Syncope type: unspecified Qualified Codes: R55 - Syncope and collapse Additional Impressions: Alcohol intoxication Complication of substance-induced condition: uncomplicated Qualified Codes: F10.920 - Alcohol use, unspecified with intoxication, uncomplicated Chest pain Chest pain type: unspecified Qualified Codes: R07.9 - Chest pain, unspecified
[2016-11-28 01:05] VITALS: BP 112/67; PULSE 96; TEMP 36.7; O2SAT 96; Ht 175.3 cm; Wt 141.9 kg
[2016-11-28] MEDS ORDERED: PHARMACY GLYCEMIC MGMT CONSULT PRN (01:26)
[2016-11-28] MEDS ORDERED: IV FLUIDS COMPLETED PRN (02:00)
[2016-11-28] MEDS ORDERED: OXYSR/10 PO (02:12)
[2016-11-28] MEDS ORDERED: RXC5 PO (02:12)
[2016-11-28] MEDS ORDERED: CLONAZEPAM 0.5 MG TAB PO PRN (02:15)
[2016-11-28] MEDS ORDERED: ALBUT/IPRATROP 3MG/0.5MG NEB 3 ML VIAL INH PRN (02:15)
[2016-11-28] MEDS ORDERED: OXYCODONE HCL 10 MG TABCR (OXYCONTIN) PO SCH (02:15)
[2016-11-28] MEDS ORDERED: OXYCODONE HCL IR 5 MG TAB (IMMEDIATE RELEASE) PO PRN (02:15)
--- NOTE | 2016-11-28 02:50 | History and Physical ---
History & Physical Date & Time of Service: Nov 28, 2016 at 02:15 Chief Complaint: Chest Pain Primary Care Physician: Karlie Bates DO History of Present Illness Source: patient, family, clinic records, hospital records 61 yo obese diabetic male who drinks heavily presents tonight after a fall at home while drinking with family and a period of decreased responsiveness. The patient does not recall the incident but his daughter states that he fell forward face first onto the floor of his home, he was then put into his bedroom and family members were able to awaken him but then he would become unresponsive again and he continued to come in and out of consciousness. At one point they became scared because his eyes rolled back. The patient is a known heavy drinker and came in with an ETOH level around 300. He is also a 30 pack year smoker, still currently smoking. He states that 4 weeks ago his artifical knee gave out on him and he hit the pavement, breaking several ribs in the process. He is on oxycontin IR and SR for chronic pain and RLS, and was continued on this for his rib pain. When in the ER tonight, he mentioned that he had this right-sided chest pain, but is clear that it is the constant rib pain from the fractures that have been bothering him. He did have evidence of a new 8th rib fracture found on CT scan tonight, but patient denies any worsening of pain overall and just states that is hard to take a deep breath because of the discomfort. He reports a cough for the past 4 weeks, also and states he is coming up with a blackish phlegm. He denies a typical smoker's cough. He denies any fevers, chills, runny nose or other cold symptoms, headache, shortness of breath, diaphoresis, palpitations, or UTI symptoms. Daughter states that his antidepressant and anxiety meds were recently changed around. Past Medical/Surgical History Medical Problems: (1) Anxiety Status: Chronic (2) Chronic pain Status: Chronic (3) Depression Status: Chronic (4) DMII (diabetes mellitus, type 2) Status: Chronic (5) GERD (gastroesophageal reflux disease) Status: Chronic (6) HTN (hypertension) Status: Chronic (7) HYPERLIPIDEMIA NEC/NOS Status: Chronic (8) HYPERTENSION NOS Status: Chronic (9) Morbid obesity due to excess calories Status: Chronic (10) Multiple rib fractures involving four or more ribs Status: Chronic (11) OA (osteoarthritis) of knee Status: Chronic (12) ENRIQUE (obstructive sleep apnea) Status: Chronic Surgical Problems: (1) H/O knee surgery Status: Chronic (2) S/P trigger finger release Status: Chronic Social History Problems: (1) Heavy alcohol use Status: Chronic (2) Smoker Status: Chronic Family History Patient reports no known family medical history. 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 [employer] Immunizations History of Influenza Vaccine: Yes Influenza Vaccine Date: Feb 16, 2016 History of Tetanus Vaccine?: Yes Tetanus Immunization Date: Aug 08, 2013 History of Pneumococcal: No Pneumococcal Date: Feb 20, 2015 History of Hepatitis B Vaccine: Yes Hepatitis Immunization Date: May 20, 2015 Multi-Drug Resistant Organisms History of MDRO: No Allergies Coded Allergies: Ketorolac Tromethamine (Unverified Allergy, Unknown, BURNING SENSATION, ) Tramadol (Verified Allergy, Unknown, GI UPSET, 10/31/16) Home Medications Scheduled Amlodipine (Norvasc), 5 MG PO DAILY Aspirin Enteric Coated (Ecotrin Or Generic), 81 MG PO DAILY Atenolol (Tenormin), 50 MG PO QPM Losartan Potassium (Cozaar), 100 MG PO DAILY Oxycodone HCl (Oxycontin), 1 TAB PO HS Pantoprazole (Protonix), 40 MG PO BID Sertraline HCl (Sertraline HCl), 50 MG PO DAILY Scheduled PRN Clonazepam (Clonazepam), 0.5 MG PO BID PRN for Anxiety Oxycodone HCl (Oxycodone HCl), 5 MG PO Q4H PRN for Pain Review of Systems At least ten systems reviewed and negative except as indicated in HPI. Physical Exam Vital Signs Date Time Temp Pulse Resp B/P (MAP) Pulse Ox O2 Delivery O2 Flow Rate FiO2 11/28/16 01:05 36.7 96 18 112/67 96 Room Air 11/28/16 00:41 101 20 124/65 98 11/27/16 23:25 99 11/27/16 22:36 98 20 97 11/27/16 22:33 117/64 11/27/16 22:06 116 20 11/27/16 21:36 97 19 96 11/27/16 21:06 104 16 94 11/27/16 21:01 90/69 11/27/16 20:47 121 21 95 11/27/16 20:31 136/76 11/27/16 20:17 99 18 96 11/27/16 20:12 97 17 94 11/27/16 20:01 104/64 11/27/16 19:51 124/67 11/27/16 19:49 132/71 11/27/16 19:42 94 15 11/27/16 19:38 96 11/27/16 19:33 120/65 11/27/16 19:12 98 11/27/16 18:59 Room Air 11/27/16 18:51 36.6 100 23 120/63 93 Room Air 11/27/16 18:45 120/63 GEN: obese, pacing around the room, in no acute distress, alert and appropriate HEENT: NC/AT, PERRL, normal sclerae/conjunctivae, MMM, pharynx non-acute, EOMI CARDIO: tachy rate, S1/2 heard without m/g/r CHEST WALL: exquisite TTP in area on R anterior chest wall just under R breast. No pain lateral to this area. No bruising LUNGS: CTA bilaterally, no crackles, rales or wheezes, good diaphragmatic excursion ABD: soft, non-tender, non-distended, no rebound or guarding, +BS EXTREMITY: RP and DP palpable 2+ bilat, no LE swelling or edema, extremities are warm and well-perfused NEURO: CN 2-12 grossly intact, sensation intact throughout, coordination intact- ambulatory, no gross focal deficits MUSC: 5/5 strength throughout, ambulatory SKIN: warm and dry Diagnostics Laboratory Results Results Past 24 Hours Test 11/27/16 18:45 11/27/16 19:15 11/27/16 19:50 11/27/16 21:55 Range/Units White Blood Count 12.67 4.8-10.8 K/uL Red Blood Count 4.24 4.7-6.1 M/uL Hemoglobin 13.0 14.0-18.0 g/dL Hematocrit 37.1 42-52 % Mean Corpuscular Volume 87.5 80-100 fL Mean Corpuscular Hemoglobin 30.7 25-34 pg Mean Corpuscular Hemoglobin Concent 35.0 32-36 g/dl Platelet Count 235 130-400 K/uL Mean Platelet Volume 10.8 7.4-10.4 fL Neutrophils (%) (Auto) 60.6 % Lymphocytes (%) (Auto) 27.1 % Monocytes (%) (Auto) 9.2 % Eosinophils (%) (Auto) 2.1 % Basophils (%) (Auto) 0.2 % Neutrophils # (Auto) 7.68 1.4-6.5 K/uL Lymphocytes # (Auto) 3.43 1.2-3.4 K/uL Monocytes # (Auto) 1.17 0.11-0.59 K/uL Eosinophils # (Auto) 0.27 0-0.5 K/uL Basophils # (Auto) 0.02 0-0.2 K/uL RDW Standard Deviation 46.6 36.4-46.3 fL RDW Coefficient of Variation 14.5 11.5-14.5 % Immature Granulocyte % (Auto) 0.8 % Immature Granulocyte # (Auto) 0.10 0.00-0.02 K/uL Sodium Level 131 136-145 mmol/L Potassium Level 4.4 3.5-5.1 mmol/L Chloride Level 100 98-107 mmol/L Carbon Dioxide Level 19 21-32 mmol/L Anion Gap 12.0 3-11 mmol/L Blood Urea Nitrogen 11 7-18 mg/dl Creatinine 0.96 0.60-1.40 mg/dl Est Creatinine Clear Calc Drug Dose 119.6 ml/min Estimated GFR () 99.2 Estimated GFR (Non- 85.6 BUN/Creatinine Ratio 11.1 10-20 Random Glucose 134 70-99 mg/dl Calcium Level 9.0 8.5-10.1 mg/dl Total Bilirubin 0.3 0.2-1 mg/dl Direct Bilirubin 0.1 0-0.2 mg/dl Aspartate Amino Transf (AST/SGOT) 65 15-37 U/L Alanine Aminotransferase (ALT/SGPT) 57 12-78 U/L Alkaline Phosphatase 168 45-117 U/L Troponin I < 0.015 0-0.045 ng/ml Total Protein 8.2 6.4-8.2 gm/dl Albumin 3.3 3.4-5.0 gm/dl Ethyl Alcohol mg/dL 292.0 0-3 mg/dl Prothrombin Time 12.1 9.0-12.0 SECONDS Prothromb Time International Ratio 1.1 0.9-1.1 Activated Partial Thromboplast Time 29.2 21.0-31.0 SECONDS Partial Thromboplastin Ratio 1.1 D-Dimer 740 0-500 ug/L FEU Urine Color YELLOW Urine Appearance CLEAR CLEAR Urine pH 5.0 4.5-7.5 Urine Specific [place] 1.018 1.000-1.030 Urine Protein NEG NEG Urine Glucose (UA) NEG NEG Urine Ketones NEG NEG Urine Occult Blood NEG NEG Urine Nitrite NEG NEG Urine Bilirubin NEG NEG Urine Urobilinogen NEG NEG Urine Leukocyte Esterase NEG NEG Test 11/28/16 00:36 Range/Units Total Creatine Kinase 39-308 U/L Creatine Kinase MB 2.1 0.5-3.6 ng/ml Creatine Kinase MB Ratio 0-3.0 Troponin I < 0.015 0-0.045 ng/ml Diagnostic Radiology CHEST FOR PE) ANGIO WITH CT DOSE: 774.52 mGy.cm HISTORY: Chest pain dyspnea TECHNIQUE: Multiaxial CT images of the chest were performed following the intravenous administration of contrast to evaluate the pulmonary arteries. Maximal intensity projection images were also obtained. COMPARISON STUDY: None. FINDINGS: There is a normal caliber thoracic aorta with no evidence for dissection. There is no evidence for pulmonary embolus. No pleural effusions. No pneumothorax. The liver and spleen are unremarkable. No mediastinal or hilar lymphadenopathy. The central airways are patent. The lungs are clear. Mild peribronchial thickening noted is made of 5 pre-existing fractures right sixth and seventh ribs with the eighth rib now showing evidence for a nondisplaced cortical fracture. IMPRESSION: No evidence for pulmonary embolus. Lungs are considered clear. Mild peribronchial thickening. Pre-existing fractures of the right sixth and seventh ribs. Apparent interval or new fracture right eighth rib. CHEST ONE VIEW PORTABLE CLINICAL HISTORY: AMS dyspnea COMPARISON STUDY: No previous studies for comparison. FINDINGS: The bones soft tissues and hemidiaphragms are normal. The cardiomediastinal silhouette is normal. The lungs are clear. The pulmonary vasculature is normal. IMPRESSION: Negative chest. --- HEAD WITHOUT CONTRAST (CT) CT DOSE: 614.27 mGy.cm HISTORY: Mental status change AMS TECHNIQUE: Multiaxial CT images of the head were performed without the use of intravenous contrast. Comparison: 10/31/2016 Findings: The paranasal sinuses and mastoid air cells are clear. The calvarium and skull base are intact. The ventricles and sulci are within normal limits. There is no mass, hematoma, midline shift, or acute infarct. Impression: No acute intracranial abnormality. No change from the prior exam EKG SR 100, No ST changes, q waves, or TWI. Impression Assessment and Plan 61 yo obese diabetic male with period of unresponsiveness to family members while drinking earlier tonight and chest pain s/p fall with multiple rib fractures 4 weeks ago. 1. Unresponsiveness-description from family is consistent with alcohol intoxication and he is currently mentating well and ambulating around the room. 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 He does not remember the time his family is referring to, however. there is no clear infection at this time, no PE was seen on CTA. Believe this was simply intoxication at this point. CT head negative. 2. Chest pain-2/2 multiple rib fractures after a fall 4 weeks ago and new fracture after fall today--his chest pain is reportedly unchanged and is managed with chronic oxycodone as outpatient. Incentive spirometer encouraged and will add lidocaine patch for additional comfort. Trending serial enzymes in setting of DMII as these patients can have atypical presentations. Initial workup including EKG, CXR, CTA chest, and initial cardiac enzymes were negative. 3. Chronic pain-cont current dosage of oxycodone with no increase 4. Alcohol intoxication-reportedly drinking today with family, ETOH level 292, he is a heavy drinker. Clonazepam ordered per home regimen PRN. Pt is not exhibiting signs of withdrawal at this time. 5. Tobacco use-encouraged to quit. 6. Multiple falls-first fall was reported to be mechanical from artificial knee giving out, second fall was related to intoxication 7. DMII-ISS with carb coverage and Lantus per protocol; apprec glycemic pharmacist recs. Hold Metformin 8. HTN-controlled, cont home medications 9. Anxiety/Depression-cont home regimen of Zoloft daily and clonazepam PRN DVT prophy-Lovenox Full Code Dispo-telemetry, likely to home in am DO Naz Phan Hospitalist Level of Care Telemetry Advanced Directives Existing Living Will: No Existing Power of Lead Die Molder: No Resuscitation Status FULL RESUSCITATION VTE Prophylaxis VTE Risk Assessment Done? Y/N: Yes Risk Level: Moderate Given or contraindicated: Enoxaparin (Lovenox)SQ Additional Copies To Karlie Bates DO
[2016-11-28 04:00] VITALS: BP 113/60; PULSE 106; TEMP 36; O2SAT 98
[2016-11-28] MEDS: INSULIN ASPART 100 UNITS/ML 3 ML PEN SC SCH ×2 (07:00→11:00)
[2016-11-28 07:10] LABS: CKMB/CK RATIO 2.4 (0-3.0)
[2016-11-28 07:15] VITALS: BP 121/74; PULSE 103; TEMP 36.8; O2SAT 95
[2016-11-28] MEDS ORDERED: PANTOprazole SOD 40 MG TAB PO SCH (09:00)
[2016-11-28] MEDS ORDERED: LIDODERM (LIDOCAINE) PATCH 5% TD SCH (09:00)
[2016-11-28] MEDS ORDERED: SERTRALINE HCL 50 MG TAB PO SCH (09:00)
[2016-11-28] MEDS ORDERED: ENOXAPARIN 40 MG/0.4 ML SYR SC SCH (09:00)
[2016-11-28] MEDS ORDERED: INSULIN GLARGINE SOLOSTAR 100 UNITS/ML 3 ML PEN SC SCH (09:00)
[2016-11-28] MEDS ORDERED: ASPIRIN 81 MG ECTAB PO SCH (09:00)
[2016-11-28] MEDS ORDERED: LOSARTAN POTASSIUM 50 MG TAB PO SCH (09:00)
[2016-11-28] MEDS ORDERED: AMLODIPINE BESYLATE 5 MG TAB PO SCH (09:00)
--- NOTE | 2016-11-28 10:18 | Progress Note ---
Internal Med Progress Note Date of Service: Nov 28, 2016. Provider Documentation: SUBJECTIVE: The patient was seen and examined 9n presence of the Daughter Denies any symptoms and adamant to go home Denies any symptoms Did not have any more episodes of questionable Unresponsiveness OBJECTIVE: Vital Signs-as noted below Exam: General-No distress at rest Eyes-normal ENT-Normal Neck-Supple Lungs-clear to ausucltate bilaterally Heart-Regular,no murmur Abdomen-Benign,no masses,bowel sound present Extremities-Trace edema bilaterally Neuro-AAOx3 No focal neuro deficit No tremors Lab data as noted below. 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 CT head negative. Warn against having Withdrawal symptoms and could be worse Even then he wants to go home and even wants to sigh out AMA Has been taking Gabapentin at home Accepted the risk of havine Withdrawal symptoms and wanted to be discharged Discussed with the Daughter Discharged home Advised to quit drinking Chest pain -2/2 multiple rib fractures after a fall 4 weeks ago and new fracture after fall on admission Initial workup including EKG, CXR, CTA chest, and initial cardiac enzymes were negative.- Denies any more pain Chronic pain-cont current dosage of oxycodone with no increase Alcohol intoxication-reportedly drinking today with family, ETOH level 292, he is a heavy drinker. Clonazepam ordered per home regimen PRN. Pt is not exhibiting signs of withdrawal at this time. Has been on Gabapentin Tobacco use-encouraged to quit. Multiple falls-first fall was reported to be mechanical from artificial knee giving out, second fall was related to intoxication DMII-ISS with carb coverage and Lantus per protocol; apprec glycemic pharmacist recs. Hold Metformin HTN-controlled, cont home medications Anxiety/Depression-cont home regimen of Zoloft daily and clonazepam PRN Chronic Back pain Has been on Oxycodone for that DVT prophy-Lovenox Full Code Dispo-telemetry, likely to home in am Vital Signs: Date Time Temp Pulse Resp B/P (MAP) Pulse Ox O2 Delivery O2 Flow Rate FiO2 11/28/16 08:00 Room Air 11/28/16 07:15 36.8 103 19 121/74 (90) 95 Room Air 11/28/16 04:00 36.0 106 20 113/60 (77) 98 Room Air 11/28/16 04:00 Room Air 11/28/16 01:05 36.7 96 18 112/67 96 Room Air 11/28/16 00:41 101 20 124/65 98 11/27/16 23:25 99 11/27/16 22:36 98 20 97 11/27/16 22:33 117/64 11/27/16 22:06 116 20 11/27/16 21:36 97 19 96 11/27/16 21:06 104 16 94 11/27/16 21:01 90/69 11/27/16 20:47 121 21 95 11/27/16 20:31 136/76 11/27/16 20:17 99 18 96 11/27/16 20:12 97 17 94 11/27/16 20:01 104/64 11/27/16 19:51 124/67 11/27/16 19:49 132/71 11/27/16 19:42 94 15 11/27/16 19:38 96 11/27/16 19:33 120/65 11/27/16 19:12 98 11/27/16 18:59 Room Air 11/27/16 18:51 36.6 100 23 120/63 93 Room Air 11/27/16 18:45 120/63 Lab Results: Results Past 24 Hours Test 11/27/16 18:45 11/27/16 19:15 11/27/16 19:50 11/27/16 21:55 Range/Units White Blood Count 12.67 4.8-10.8 K/uL Red Blood Count 4.24 4.7-6.1 M/uL Hemoglobin 13.0 14.0-18.0 g/dL Hematocrit 37.1 42-52 % Mean Corpuscular Volume 87.5 80-100 fL Mean Corpuscular Hemoglobin 30.7 25-34 pg Mean Corpuscular Hemoglobin Concent 35.0 32-36 g/dl Platelet Count 235 130-400 K/uL Mean Platelet Volume 10.8 7.4-10.4 fL Neutrophils (%) (Auto) 60.6 % Lymphocytes (%) (Auto) 27.1 % Monocytes (%) (Auto) 9.2 % Eosinophils (%) (Auto) 2.1 % Basophils (%) (Auto) 0.2 % Neutrophils # (Auto) 7.68 1.4-6.5 K/uL Lymphocytes # (Auto) 3.43 1.2-3.4 K/uL Monocytes # (Auto) 1.17 0.11-0.59 K/uL Eosinophils # (Auto) 0.27 0-0.5 K/uL Basophils # (Auto) 0.02 0-0.2 K/uL RDW Standard Deviation 46.6 36.4-46.3 fL RDW Coefficient of Variation 14.5 11.5-14.5 % Immature Granulocyte % (Auto) 0.8 % Immature Granulocyte # (Auto) 0.10 0.00-0.02 K/uL Sodium Level 131 136-145 mmol/L Potassium Level 4.4 3.5-5.1 mmol/L Chloride Level 100 98-107 mmol/L Carbon Dioxide Level 19 21-32 mmol/L Anion Gap 12.0 3-11 mmol/L Blood Urea Nitrogen 11 7-18 mg/dl Creatinine 0.96 0.60-1.40 mg/dl Est Creatinine Clear Calc Drug Dose 119.6 ml/min Estimated GFR () 99.2 Estimated GFR (Non- 85.6 BUN/Creatinine Ratio 11.1 10-20 Random Glucose 134 70-99 mg/dl Calcium Level 9.0 8.5-10.1 mg/dl Total Bilirubin 0.3 0.2-1 mg/dl Direct Bilirubin 0.1 0-0.2 mg/dl Aspartate Amino Transf (AST/SGOT) 65 15-37 U/L Alanine Aminotransferase (ALT/SGPT) 57 12-78 U/L Alkaline Phosphatase 168 45-117 U/L Troponin I < 0.015 0-0.045 ng/ml Total Protein 8.2 6.4-8.2 gm/dl Albumin 3.3 3.4-5.0 gm/dl Ethyl Alcohol mg/dL 292.0 0-3 mg/dl Prothrombin Time 12.1 9.0-12.0 SECONDS Prothromb Time International Ratio 1.1 0.9-1.1 Activated Partial Thromboplast Time 29.2 21.0-31.0 SECONDS Partial Thromboplastin Ratio 1.1 D-Dimer 740 0-500 ug/L FEU Urine Color YELLOW Urine Appearance CLEAR CLEAR Urine pH 5.0 4.5-7.5 Urine Specific [place] 1.018 1.000-1.030 Urine Protein NEG NEG Urine Glucose (UA) NEG NEG Urine Ketones NEG NEG Urine Occult Blood NEG NEG Urine Nitrite NEG NEG Urine Bilirubin NEG NEG Urine Urobilinogen NEG NEG Urine Leukocyte Esterase NEG NEG Test 11/28/16 00:36 11/28/16 06:19 11/28/16 07:22 Range/Units Total Creatine Kinase 70 39-308 U/L Creatine Kinase MB 2.1 1.7 0.5-3.6 ng/ml Creatine Kinase MB Ratio 2.4 0-3.0 Troponin I < 0.015 < 0.015 0-0.045 ng/ml Bedside Glucose 119 70-99 mg/dl
[2016-11-28 10:21] VITALS: BP 121/74; PULSE 103; TEMP 36.8; O2SAT 95
[2016-11-28] MEDS ORDERED: GLC/500 PO (10:38)
[2016-11-28] MEDS ORDERED: januvia PO (10:38)
[2016-11-28] MEDS ORDERED: INSDGI SC (10:38)
--- NOTE | 2016-11-28 12:01 | Discharge Instructions ---
Discharge Instructions Date of Service Nov 28, 2016. Admission Reason for Admission: Chest Pain Discharge Discharge Diagnosis / Problem: Alcohol intoxication,Unresponsive episode- resolved Discharge Goals Goal(s): Prevent Disease Progression Activity Recommendations Activity Limitations: resume your previous activity . Instructions / Follow-Up Instructions / Follow-Up Your doctors office will call with appointment Current Hospital Diet Patient's current hospital diet: AHA Diet (Heart Healthy), Diabetes Type 2 Diet Discharge Diet Recommended Diet: AHA Diet (Heart Healthy), Diabetes Type 2 Diet Pending Studies Studies pending at discharge: no Medical Emergencies . Who to Call and When: Medical Emergencies: If at any time you feel your situation is an emergency, please call 911 immediately. . Non-Emergent Contact Non-Emergency issues call your: Primary Care Provider . Past History Medical & Surgical History: (1) Syncope (2) Alcohol intoxication (3) OBSTRUCTIVE SLEEP APNEA (ADULT) (PEDIATRIC) (4) HYPERTENSION NOS (5) HYPERLIPIDEMIA NEC/NOS (6) DMII (diabetes mellitus, type 2) (7) DYSMETABOLIC SYNDROME X (8) Anxiety (9) Depression (10) H/O knee surgery (11) S/P trigger finger release . "Provider Documentation" section prepared by Weston Geller. . VTE Core Measure Inpt VTE Proph given/why not?: Enoxaparin (Lovenox)SQ
--- NOTE | 2016-11-28 12:40 | Pharmacy Progress Note ---
Glycemic: Assessment & Plan Date of Service Nov 28, 2016. Assessment & Plan BSGs ranging 119 - 131 mg/dl over the past 24hrs. * Basal insulin: None * Correctional Insulin: Novolog Correction per scale ACHS Goal Range: Low 100 mg/dL - High 140 mg/dL Correction Factor: 15 mg/dL/unit * Prandial insulin: Per carb ratio of 1 unit per 6 grams CHO consumed ASSESSMENT/PLAN: * BSGs currently well controlled - current CF/CR most likely too aggressive so will change to CF 30, CR 10 based on stress level of 1 and patient's wt * Called nurse this AM re: notes in H&P about pt being on metformin and no diabetes meds on med list - was informed that patient being discharged after lunch * Discharge orders are currently in and it looks like med list has been updated - patient on metformin, Januvia and Lantus as an outpatient * Should be okay to resume these on discharge Pharmacy will continue to monitor patient daily and write orders per [facility] inpatient glycemic control protocol. Thanks.
--- NOTE | 2016-11-28 15:19 | Discharge Summary ---
Discharge Summary Date of Service Nov 28, 2016. Discharge Summary Admission Date: Nov 28, 2016 at 00:13 Discharge Date: Nov 28, 2016 Discharge Disposition: Home Principal Diagnosis: Alcohol intoxication,Unresponsive episode-resolved Secondary Diagnoses/Problems: Please see H&P and Hospital Progress note Medication Reconciliation Continued Medications: Amlodipine (Norvasc) 5 Mg Tab 5 MG PO DAILY, TAB Aspirin Enteric Coated (Ecotrin Or Generic) 81 Mg Tab 81 MG PO DAILY, TAB Atenolol (Tenormin) 50 Mg Tab 50 MG PO QPM, 0 Refills Clonazepam (Clonazepam) 0.5 Mg Tab 0.5 MG PO BID PRN for Anxiety Insulin Glargine (Lantus) 100 Unit/Ml Inj 10 UNITS SC QPM, VIAL Losartan Potassium (Cozaar) 100 Mg Tab 100 MG PO DAILY, TAB Metformin Hcl (Glucophage) 500 Mg Tab 500 MG PO BID, TAB Oxycodone HCl (Oxycontin) 10 Mg Tabcr 1 TAB PO HS Oxycodone HCl (Oxycodone HCl) 5 Mg Tab 5 MG PO Q4H PRN for Pain Pantoprazole (Protonix) 40 Mg Tab 40 MG PO BID, 0 Refills Sertraline HCl (Sertraline HCl) 50 Mg Tab 50 MG PO DAILY [januvia] () PO DAILY Admission Information HPI (per Admitting provider): 61 yo obese diabetic male who drinks heavily presents tonight after a fall at home while drinking with family and a period of decreased responsiveness. The patient does not recall the incident but his daughter states that he fell forward face first onto the floor of his home, he was then put into his bedroom and family members were able to awaken him but then he would become unresponsive again and he continued to come in and out of consciousness. At one point they became scared because his eyes rolled back. The patient is a known heavy drinker and came in with an ETOH level around 300. He is also a 30 pack year smoker, still currently smoking. He states that 4 weeks ago his artifical knee gave out on him and he hit the pavement, breaking several ribs in the process. He is on oxycontin IR and SR for chronic pain and RLS, and was continued on this for his rib pain. When in the ER tonight, he mentioned that he had this right-sided chest pain, but is clear that it is the constant rib pain from the fractures that have been bothering him. He did have evidence of a new 8th rib fracture found on CT scan tonight, but patient denies any worsening of pain overall and just states that is hard to take a deep breath because of the discomfort. He reports a cough for the past 4 weeks, also and states he is coming up with a blackish phlegm. He denies a typical smoker's cough. He denies any fevers, chills, runny nose or other cold symptoms, headache, shortness of breath, diaphoresis, palpitations, or UTI symptoms. Daughter states that his antidepressant and anxiety meds were recently changed around. Past Medical/Surgical History Medical Problems: (1) Anxiety Status: Chronic (2) Chronic pain Status: Chronic (3) Depression Status: Chronic (4) DMII (diabetes mellitus, type 2) Status: Chronic (5) GERD (gastroesophageal reflux disease) Status: Chronic (6) HTN (hypertension) Status: Chronic (7) HYPERLIPIDEMIA NEC/NOS Status: Chronic (8) HYPERTENSION NOS Status: Chronic (9) Morbid obesity due to excess calories Status: Chronic (10) Multiple rib fractures involving four or more ribs Status: Chronic (11) OA (osteoarthritis) of knee Status: Chronic (12) ENRIQUE (obstructive sleep apnea) Status: Chronic Surgical Problems: (1) H/O knee surgery Status: Chronic (2) S/P trigger finger release Status: Chronic Social History Problems: (1) Heavy alcohol use Status: Chronic (2) Smoker Status: Chronic Family History Patient reports no known family medical history. 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) Immunizations History of Influenza Vaccine: Yes Influenza Vaccine Date: Feb 16, 2016 History of Tetanus Vaccine?: Yes Tetanus Immunization Date: Aug 08, 2013 History of Pneumococcal: No Pneumococcal Date: Feb 20, 2015 History of Hepatitis B Vaccine: Yes Hepatitis Immunization Date: May 20, 2015 Multi-Drug Resistant Organisms History of MDRO: No Allergies Coded Allergies: Ketorolac Tromethamine (Unverified Allergy, Unknown, BURNING SENSATION, ) Tramadol (Verified Allergy, Unknown, GI UPSET, 10/31/16) Home Medications Scheduled Amlodipine (Norvasc), 5 MG PO DAILY Aspirin Enteric Coated (Ecotrin Or Generic), 81 MG PO DAILY Atenolol (Tenormin), 50 MG PO QPM Losartan Potassium (Cozaar), 100 MG PO DAILY Oxycodone HCl (Oxycontin), 1 TAB PO HS Pantoprazole (Protonix), 40 MG PO BID Sertraline HCl (Sertraline HCl), 50 MG PO DAILY Scheduled PRN Clonazepam (Clonazepam), 0.5 MG PO BID PRN for Anxiety Oxycodone HCl (Oxycodone HCl), 5 MG PO Q4H PRN for Pain Review of Systems At least ten systems reviewed and negative except as indicated in HPI. Physical Ex - H&P Physical Exam Vital Signs Date Time Temp Pulse Resp B/P (MAP) Pulse Ox O2 Delivery O2 Flow Rate FiO2 11/28/16 01:05 36.7 96 18 112/67 96 Room Air 11/28/16 00:41 101 20 124/65 98 11/27/16 23:25 99 11/27/16 22:36 98 20 97 11/27/16 22:33 117/64 11/27/16 22:06 116 20 11/27/16 21:36 97 19 96 11/27/16 21:06 104 16 94 11/27/16 21:01 90/69 11/27/16 20:47 121 21 95 11/27/16 20:31 136/76 11/27/16 20:17 99 18 96 11/27/16 20:12 97 17 94 11/27/16 20:01 104/64 11/27/16 19:51 124/67 11/27/16 19:49 132/71 11/27/16 19:42 94 15 11/27/16 19:38 96 11/27/16 19:33 120/65 11/27/16 19:12 98 11/27/16 18:59 Room Air 11/27/16 18:51 36.6 100 23 120/63 93 Room Air 11/27/16 18:45 120/63 GEN: obese, pacing around the room, in no acute distress, alert and appropriate HEENT: NC/AT, PERRL, normal sclerae/conjunctivae, MMM, pharynx non-acute, EOMI CARDIO: tachy rate, S1/2 heard without m/g/r CHEST WALL: exquisite TTP in area on R anterior chest wall just under R breast. No pain lateral to this area. No bruising LUNGS: CTA bilaterally, no crackles, rales or wheezes, good diaphragmatic excursion ABD: soft, non-tender, non-distended, no rebound or guarding, +BS EXTREMITY: RP and DP palpable 2+ bilat, no LE swelling or edema, extremities are warm and well-perfused NEURO: CN 2-12 grossly intact, sensation intact throughout, coordination intact- ambulatory, no gross focal deficits MUSC: 5/5 strength throughout, ambulatory SKIN: warm and dry Diagnostics - H&P Diagnostics Laboratory Results Results Past 24 Hours Test 11/27/16 18:45 11/27/16 19:15 11/27/16 19:50 11/27/16 21:55 Range/Units White Blood Count 12.67 4.8-10.8 K/uL Red Blood Count 4.24 4.7-6.1 M/uL Hemoglobin 13.0 14.0-18.0 g/dL Hematocrit 37.1 42-52 % Mean Corpuscular Volume 87.5 80-100 fL Mean Corpuscular Hemoglobin 30.7 25-34 pg Mean Corpuscular Hemoglobin Concent 35.0 32-36 g/dl Platelet Count 235 130-400 K/uL Mean Platelet Volume 10.8 7.4-10.4 fL Neutrophils (%) (Auto) 60.6 % Lymphocytes (%) (Auto) 27.1 % Monocytes (%) (Auto) 9.2 % Eosinophils (%) (Auto) 2.1 % Basophils (%) (Auto) 0.2 % Neutrophils # (Auto) 7.68 1.4-6.5 K/uL Lymphocytes # (Auto) 3.43 1.2-3.4 K/uL Monocytes # (Auto) 1.17 0.11-0.59 K/uL Eosinophils # (Auto) 0.27 0-0.5 K/uL Basophils # (Auto) 0.02 0-0.2 K/uL RDW Standard Deviation 46.6 36.4-46.3 fL RDW Coefficient of Variation 14.5 11.5-14.5 % Immature Granulocyte % (Auto) 0.8 % Immature Granulocyte # (Auto) 0.10 0.00-0.02 K/uL Sodium Level 131 136-145 mmol/L Potassium Level 4.4 3.5-5.1 mmol/L Chloride Level 100 98-107 mmol/L Carbon Dioxide Level 19 21-32 mmol/L Anion Gap 12.0 3-11 mmol/L Blood Urea Nitrogen 11 7-18 mg/dl Creatinine 0.96 0.60-1.40 mg/dl Est Creatinine Clear Calc Drug Dose 119.6 ml/min Estimated GFR () 99.2 Estimated GFR (Non- 85.6 BUN/Creatinine Ratio 11.1 10-20 Random Glucose 134 70-99 mg/dl Calcium Level 9.0 8.5-10.1 mg/dl Total Bilirubin 0.3 0.2-1 mg/dl Direct Bilirubin 0.1 0-0.2 mg/dl Aspartate Amino Transf (AST/SGOT) 65 15-37 U/L Alanine Aminotransferase (ALT/SGPT) 57 12-78 U/L Alkaline Phosphatase 168 45-117 U/L Troponin I < 0.015 0-0.045 ng/ml Total Protein 8.2 6.4-8.2 gm/dl Albumin 3.3 3.4-5.0 gm/dl Ethyl Alcohol mg/dL 292.0 0-3 mg/dl Prothrombin Time 12.1 9.0-12.0 SECONDS Prothromb Time International Ratio 1.1 0.9-1.1 Activated Partial Thromboplast Time 29.2 21.0-31.0 SECONDS Partial Thromboplastin Ratio 1.1 D-Dimer 740 0-500 ug/L FEU Urine Color YELLOW Urine Appearance CLEAR CLEAR Urine pH 5.0 4.5-7.5 Urine Specific [place] 1.018 1.000-1.030 Urine Protein NEG NEG Urine Glucose (UA) NEG NEG Urine Ketones NEG NEG Urine Occult Blood NEG NEG Urine Nitrite NEG NEG Urine Bilirubin NEG NEG Urine Urobilinogen NEG NEG Urine Leukocyte Esterase NEG NEG Test 11/28/16 00:36 Range/Units Total Creatine Kinase 39-308 U/L Creatine Kinase MB 2.1 0.5-3.6 ng/ml Creatine Kinase MB Ratio 0-3.0 Troponin I < 0.015 0-0.045 ng/ml Diagnostic Radiology CHEST FOR PE) ANGIO WITH CT DOSE: 774.52 mGy.cm HISTORY: Chest pain dyspnea TECHNIQUE: Multiaxial CT images of the chest were performed following the intravenous administration of contrast to evaluate the pulmonary arteries. Maximal intensity projection images were also obtained. COMPARISON STUDY: None. FINDINGS: There is a normal caliber thoracic aorta with no evidence for dissection. There is no evidence for pulmonary embolus. No pleural effusions. No pneumothorax. The liver and spleen are unremarkable. No mediastinal or hilar lymphadenopathy. The central airways are patent. The lungs are clear. Mild peribronchial thickening noted is made of 5 pre-existing fractures right sixth and seventh ribs with the eighth rib now showing evidence for a nondisplaced cortical fracture. IMPRESSION: No evidence for pulmonary embolus. Lungs are considered clear. Mild peribronchial thickening. Pre-existing fractures of the right sixth and seventh ribs. Apparent interval or new fracture right eighth rib. CHEST ONE VIEW PORTABLE CLINICAL HISTORY: AMS dyspnea COMPARISON STUDY: No previous studies for comparison. FINDINGS: The bones soft tissues and hemidiaphragms are normal. The cardiomediastinal silhouette is normal. The lungs are clear. The pulmonary vasculature is normal. IMPRESSION: Negative chest. --- HEAD WITHOUT CONTRAST (CT) CT DOSE: 614.27 mGy.cm HISTORY: Mental status change AMS TECHNIQUE: Multiaxial CT images of the head were performed without the use of intravenous contrast. Comparison: 10/31/2016 Findings: The paranasal sinuses and mastoid air cells are clear. The calvarium and skull base are intact. The ventricles and sulci are within normal limits. There is no mass, hematoma, midline shift, or acute infarct. Impression: No acute intracranial abnormality. No change from the prior exam EKG SR 100, No ST changes, q waves, or TWI. Impression - H&P Impression Assessment and Plan 61 yo obese diabetic male with period of unresponsiveness to family members while drinking earlier tonight and chest pain s/p fall with multiple rib fractures 4 weeks ago. 1. Unresponsiveness-description from family is consistent with alcohol intoxication and he is currently mentating well and ambulating around the room. 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 He does not remember the time his family is referring to, however. there is no clear infection at this time, no PE was seen on CTA. Believe this was simply intoxication at this point. CT head negative. 2. Chest pain-2/2 multiple rib fractures after a fall 4 weeks ago and new fracture after fall today--his chest pain is reportedly unchanged and is managed with chronic oxycodone as outpatient. Incentive spirometer encouraged and will add lidocaine patch for additional comfort. Trending serial enzymes in setting of DMII as these patients can have atypical presentations. Initial workup including EKG, CXR, CTA chest, and initial cardiac enzymes were negative. 3. Chronic pain-cont current dosage of oxycodone with no increase 4. Alcohol intoxication-reportedly drinking today with family, ETOH level 292, he is a heavy drinker. Clonazepam ordered per home regimen PRN. Pt is not exhibiting signs of withdrawal at this time. 5. Tobacco use-encouraged to quit. 6. Multiple falls-first fall was reported to be mechanical from artificial knee giving out, second fall was related to intoxication 7. DMII-ISS with carb coverage and Lantus per protocol; apprec glycemic pharmacist recs. Hold Metformin 8. HTN-controlled, cont home medications 9. Anxiety/Depression-cont home regimen of Zoloft daily and clonazepam PRN DVT prophy-Lovenox Full Code Dispo-telemetry, likely to home in am DO Naz Phan Hospitalist Level of Care Telemetry Advanced Directives Existing Living Will: No Existing Power of Cut Out Press Operator: No Resuscitation Status FULL RESUSCITATION VTE Prophylaxis VTE Risk Assessment Done? Y/N: Yes Risk Level: Moderate Given or contraindicated: Enoxaparin (Lovenox)SQ Additional Copies To Karlie Bates,DO Physical Exam (per Admitting): GEN: obese, pacing around the room, in no acute distress, alert and appropriate HEENT: NC/AT, PERRL, normal sclerae/conjunctivae, MMM, pharynx non-acute, EOMI CARDIO: tachy rate, S1/2 heard without m/g/r CHEST WALL: exquisite TTP in area on R anterior chest wall just under R breast. No pain lateral to this area. 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 CT head negative. Warn against having Withdrawal symptoms and could be worse Even then he wants to go home and even wants to sigh out AMA Has been taking Gabapentin at home Accepted the risk of havine Withdrawal symptoms and wanted to be discharged Discussed with the Daughter Discharged home Advised to quit drinking Chest pain -2/2 multiple rib fractures after a fall 4 weeks ago and new fracture after fall on admission Initial workup including EKG, CXR, CTA chest, and initial cardiac enzymes were negative.- Denies any more pain Chronic pain-cont current dosage of oxycodone with no increase Alcohol intoxication-reportedly drinking today with family, ETOH level 292, he is a heavy drinker. Clonazepam ordered per home regimen PRN. Pt is not exhibiting signs of withdrawal at this time. Has been on Gabapentin Tobacco use-encouraged to quit. Multiple falls-first fall was reported to be mechanical from artificial knee giving out, second fall was related to intoxication DMII-ISS with carb coverage and Lantus per protocol; apprec glycemic pharmacist recs. Hold Metformin HTN-controlled, cont home medications Anxiety/Depression-cont home regimen of Zoloft daily and clonazepam PRN Chronic Back pain Has been on Oxycodone for that DVT prophy-Lovenox Full Code Dispo-telemetry, likely to home in am Total time spent on discharge = 35 minutes This includes examination of the patient, discharge planning, medication reconciliation, and communication with other providers. Discharge Instructions Date of Service Nov 28, 2016. Admission Reason for Admission: Chest Pain Discharge Discharge Diagnosis / Problem: Alcohol intoxication,Unresponsive episode- resolved Discharge Goals Goal(s): Prevent Disease Progression Activity Recommendations Activity Limitations: resume your previous activity . Instructions / Follow-Up Instructions / Follow-Up Your doctors office will call with appointment Current Hospital Diet Patient's current hospital diet: AHA Diet (Heart Healthy), Diabetes Type 2 Diet Discharge Diet Recommended Diet: AHA Diet (Heart Healthy), Diabetes Type 2 Diet Pending Studies Studies pending at discharge: no Medical Emergencies . Who to Call and When: Medical Emergencies: If at any time you feel your situation is an emergency, please call 911 immediately. . Non-Emergent Contact Non-Emergency issues call your: Primary Care Provider . Past History Medical & Surgical History: (1) Syncope (2) Alcohol intoxication (3) OBSTRUCTIVE SLEEP APNEA (ADULT) (PEDIATRIC) (4) HYPERTENSION NOS (5) HYPERLIPIDEMIA NEC/NOS (6) DMII (diabetes mellitus, type 2) (7) DYSMETABOLIC SYNDROME X (8) Anxiety (9) Depression (10) H/O knee surgery (11) S/P trigger finger release . "Provider Documentation" section prepared by Weston Geller. . VTE Core Measure Inpt VTE Proph given/why not?: Enoxaparin (Lovenox)SQ <Electronically signed by Weston Geller M.D.> Signed: 11/28/16 1201 Additional Copies To Karlie Bates,DO
== END 2016-11-28 13:00 | disposition home or self-care (01) ==
LOC: EDBD 18:42 → C.EDA 18:43 → C.2E 11-28 00:13 → ENRESERV 11-28 00:35
PROVIDERS: ADMIT Hospitalist; ATTEND Internal Medicine
DX: F10.129 Alcohol abuse with intoxication, unspecified (principal); R55 Syncope and collapse; R07.9 Chest pain, unspecified; W19.XXXA Unspecified fall, initial encounter; E11.9 Type 2 diabetes mellitus without complications; I10 Essential (primary) hypertension; E78.5 Hyperlipidemia, unspecified; F17.200 Nicotine dependence, unspecified, uncomplicated; F41.9 Anxiety disorder, unspecified; F32.9 Major depressive disorder, single episode, unspecified; K21.9 Gastro-esophageal reflux disease without esophagitis; E66.01 Morbid (severe) obesity due to excess calories; Z87.81 Personal history of (healed) traumatic fracture; M19.90 Unspecified osteoarthritis, unspecified site; S22.31XA Fracture of one rib, right side, initial encounter for closed fracture; Z79.84 Long term (current) use of oral hypoglycemic drugs

== ENCOUNTER 2017-06-13 17:18 | Emergency (ER) | payer OTHER ==
[~2017-06-13] VITALS: Ht 172.7 cm; Wt 129.1 kg
[~2017-06-13 17:18] MED LIST changes: -DIAZ-165 PO; +GLC/500 PO; -HYDR-4383 PO; +INSDGI SC; -OXYC1TAB3 PO; +OXYSR/10 PO; +RXC5 PO; +januvia PO
[2017-06-13 17:53] VITALS: Ht 172.7 cm; Wt 129.1 kg
--- NOTE | 2017-06-13 19:02 | DIAGNOSTIC IMAGING REPORT ---
L-SPINE MIN 4 VIEWS ROUTINE CLINICAL HISTORY: Back pain and left leg radiculopathy status post trauma COMPARISON STUDY: No previous studies for comparison. FINDINGS: There are minor degenerative changes. No acute fractures or traumatic subluxations are visualized. IMPRESSION: No fractures or subluxations identified. Electronically signed by: Basilio Darnell M.D. 06/13/2017 7:01 PM Dictated Date/Time: 06/13/2017 7:00 PM
[2017-06-13] MEDS ORDERED: OXYCODONE HCL IR 5 MG TAB (IMMEDIATE RELEASE) PO STA (19:17)
[2017-06-13 20:09] VITALS: BP 192/89; PULSE 82; TEMP 36.5; O2SAT 97
--- NOTE | 2017-06-15 00:02 | EMERGENCY ROOM VISIT NOTE ---
ED Visit Note First contact with patient: 18:01 Chief Complaint: Back pain. History of Present Illness: Mr. Crabtree is a 61-year-old white male who ambulates into the ED accompanied by his complaining of severe lumbar back pain. Patient reports he has chronic back pain for many years but has never been truly evaluated for his back pain. Patient reports on Tuesday, 3 days ago, he was loading pellets into his stove at home and reports his right knee gave out. He reports he fell onto his buttocks and was able to get himself off the ground. He was fine after the fall and was not experiencing any pain. He then reports on Tuesday he was working at home in the garden without difficulty. When he finished this he was not experiencing any pain. Today he reports he woke up from sleep with severe lower back pain. He reports since that time the pain has been constant. He places his discomfort at the L5-S1 area and the bilateral sacroiliac joint area. He describes his pain as a sharp sensation. He rates his discomfort 10/10. He reports the pain is radiating inferiorly into the hip, scrotum and the right lower extremity. Palpation in all movements at the lumbar spine increases his discomfort. He has not identified any alleviating factors related to the pain. He reports he has been taking his prescribed OxyIR without relief of his discomfort. He does report he has been using ice on his back with mild to moderate relief of his discomfort. Associated with his pain he reports he has a tingling sensation in his right foot. He denies fevers, chills, sweats, abdominal pain, nausea, vomiting, diarrhea, constipation, rectal bleeding, black/tarry stools, urinary symptoms, hematuria, genital paresthesias, bowel and bladder dysfunction, lower extremity weakness. Review of Systems: As noted above in history of present illness. 8 body systems were reviewed and found to be negative as noted above. Past Medical History: Diabetes, neuropathy, hypertension, unspecified stomach disorder, and specified urinary problems, bilateral knee replacement. Current Medications: Medications Dose Route/Sig Max Daily Dose Days Date Category Glucophage (Metformin Hcl) 500 Mg Tab 500 Mg PO BID 11/28/16 Reported [januvia] PO DAILY 11/28/16 Reported Lantus (Insulin Glargine) 100 Unit/Ml Inj 10 Units SC QPM 11/28/16 Reported Oxycodone HCl 5 Mg Tab 5 Mg PO Q4H PRN 11/28/16 Reported Oxycontin (Oxycodone HCl) 10 Mg Tabcr 1 Tab PO HS 11/28/16 Reported Ecotrin Or Generic (Aspirin) 81 Mg Tab 81 Mg PO DAILY 10/31/16 Reported Cozaar (Losartan Potassium) 100 Mg Tab 100 Mg PO DAILY 10/31/16 Reported Clonazepam 0.5 Mg Tab 0.5 Mg PO BID PRN 10/31/16 Reported Sertraline HCl 50 Mg Tab 50 Mg PO DAILY 10/31/16 Reported Norvasc (Amlodipine Besylate) 5 Mg Tab 5 Mg PO DAILY 09/01/12 Reported Protonix (Pantoprazole Sodium) 40 Mg Tab 40 Mg PO BID 06/24/11 Reported Tenormin (Atenolol) 50 Mg Tab 50 Mg PO QPM 06/26/09 Reported Allergies to Medications: Tramadol, Augmentin. Social History: Patient is currently employed; he feels safe in his home environment; he admits to tobacco and alcohol use. Physical Examination: Vital Signs: Date Time Temp Pulse Resp B/P (MAP) Pulse Ox O2 Delivery O2 Flow Rate FiO2 06/13/17 17:53 36.5 82 18 192/89 97 Room Air GENERAL: 61-year-old female in moderate distress due to pain, nontoxic-appearing , afebrile and hemodynamically stable. NEUROLOGICAL: Awake, alert and oriented to person, place and time. Answering questions appropriately and following commands. Good hand eye coordination. No focal motor or sensory deficits. SKIN: Warm, dry and pink. No soft tissue eruptions or trauma noted. HEENT: Atraumatic and normocephalic. BACK: No tenderness over the bony cervical and thoracic spine. Moderate tenderness over the L5-S1 area and the sacroiliac joint area bilaterally. I do not appreciate any bony deformity, step-offs, swelling or ecchymosis. Decreased range of motion in all movements at the waist due to pain. Mild right sided CVA tenderness. Unable to perform a valid straight leg raise test due to obesity. THORAX: Lungs sounds are clear to auscultation and equal bilaterally with symmetrical chest wall. ABDOMEN: Obese, soft and nontender. Positive bowel sounds in all quadrants. No guarding, rigidity or organomegaly. LOWER EXTREMITIES: No gross bony deformity. No shortening or malrotation. No tenderness in the hips, thighs, knees, lower legs, ankles or feet. 2+ patellar Achilles and the deep tendon reflexes intact and equal bilaterally. 4/5 muscle strength in hip flexion, extension, abduction, abduction, internal neck sternal rotation, knee flexion and extension, ankle plantar flexion and dorsiflexion. He was able to distinguish approximately 70% of light touches throughout his extremities. Mild dependent edema but no calf tenderness or cords. ED Course: Patient is assessed as noted above. Patient's medication list was reviewed. Lumbar Spine X-Rays: Were read by myself and the radiologist showing mild degenerative changes with no acute fractures or subluxations. Patient was ice for pain and comfort and was offered oxycodone and initially refused but then accepted 5 mg by mouth. Patient was offered a CT of his lumbar spine and refused after lengthy conversation Patient's case was reviewed with Dr. Ceja; we agreed on diagnostic approach, treatment, disposition and plan. Patient was educated about today's findings and instructed on his treatment plan ; he verbalized understanding and agreement with this plan. Clinical Impression: Lumbar back pain with right sided radiculopathy. Disposition: Patient discharged home in stable condition accompanied by his ; prior to departure he was reassessed and continued to rate his discomfort 10/ 10. Plan: Patient was encouraged to continue his current narcotics for pain control. Patient was encouraged to use ice. Patient is encouraged to avoid heavy lifting and use proper moving techniques. Patient was encouraged to follow-up with his family physician tomorrow and request follow-up care and treatment. Patient was encouraged to return to the ED for fevers, abdominal Pain, worsening leg tingling, leg numbness, inability control bowel and bladder functions, rectal/genital paresthesias, fevers or any new/concerning symptoms.
== END 2017-06-13 20:10 | disposition home or self-care (01) ==
LOC: C.EDB 17:20 → C.EDD 20:10
DX: M54.16 Radiculopathy, lumbar region (principal); E11.9 Type 2 diabetes mellitus without complications; I10 Essential (primary) hypertension; K31.9 Disease of stomach and duodenum, unspecified; Z96.653 Presence of artificial knee joint, bilateral; Z72.0 Tobacco use

== ENCOUNTER → 2017-08-12 | Day surgery (SDC) | payer OTHER ==
[2017-08-02 14:41] VITALS: BMI 46.0
[~2017-08-12] VITALS: Ht 172.7 cm; Wt 137.3 kg
[~2017-08-12] MED LIST changes: -ATEN50TA8 PO; +ATOR-22 PO; +BACL10TA PO; +BUSP15TA70 PO; +CYAN10005 PO; +FENTANYL CITRATE INJ 50 MCG/1 ML 2 ML VIAL IV ONE; +FENTANYL CITRATE INJ 50 MCG/1 ML 2 ML VIAL ONE; +GABA100C13 PO; -GLC/500 PO; +LIDOCAINE HCL 2% 2 ML VIAL (20MG/ML) ONE; +METF1TAB85 PO; +METO50TA8 PO; +MIDAZOLAM HCL 1 MG/ML 2ML VIAL ONE; +ONDANSETRON INJ 2 MG/ML 2 ML VIAL ONE; +PROPOFOL IV EMULSION 10 MG/ML 20 ML VIAL IV ONE; +SITA1TAB27 PO; +SODIUM CHLORIDE 0.9% 500ML 500 ML IV ONE; -januvia PO
[2017-08-12 08:46] VITALS: Ht 172.7 cm; Wt 137.3 kg
--- NOTE | 2017-08-12 09:17 | Endo History and Physical ---
History & Physical Date of Service: Aug 12, 2017. Chief Complaint: SCREENING Referring Physician: DR. DELMER KEENAN History of Present Illness Screening colonoscopy Past Surgical History Hx Cardiac Surgery: No Hx Internal Defibrillator: No Hx Pacemaker: No Hx Abdominal Surgery: No Hx of Implantable Prosthesis: No Hx Post-Op Nausea and Vomiting: Yes Hx Cancer Surgery: No Hx Thoracic Surgery: No Hx Orthopedic: Yes (LT/RT TKA, MULTIPLE TRIGGER FINGERS, MULTIPLE KNEE SCOPES) Hx Urinary Tract Surgery: No Family History None Social History Smoking Status: Current Every Day Smoker Hx Substance Use: No Hx Alcohol Use: Yes (2-3 BEERS/DAY) Allergies Coded Allergies: Ketorolac Tromethamine (Verified Allergy, Unknown, BURNING SENSATION, 08/12) Tramadol (Verified Allergy, Unknown, GI UPSET, 08/02/17) Current Medications Reported Home Medications Medications Dose Route/Sig Max Daily Dose Days Date Category Vitamin B-12 (Cyanocobalamin) 1,000 Mcg Tab 1,000 Mcg PO DAILY 08/02/17 Reported Januvia (Sitagliptin) 100 Mg Tab 100 Mg PO QPM 08/02/17 Reported Neurontin (Gabapentin) 100 Mg Cap 100 Mg PO TID 08/02/17 Reported Buspar (Buspirone Hcl) 15 Mg Tab 15 Mg PO DAILY PRN 08/02/17 Reported Lioresal (Baclofen) 10 Mg Tab 10 Mg PO TID PRN 08/02/17 Reported Lipitor (Atorvastatin Calcium) 20 Mg Tab 20 Mg PO QAM 08/02/17 Reported Toprol-Xl (Metoprolol Succinate) 50 Mg Tabcr 50 Mg PO QPM 08/02/17 Reported Metformin Hcl Er (Metformin Hcl) 500 Mg Tab 1 Tab PO QAM 08/02/17 Reported Lantus (Insulin Glargine) 100 Unit/Ml Inj 10 Units SC QAM 11/28/16 Reported Oxycodone HCl 5 Mg Tab 5 Mg PO Q4H 11/28/16 Reported Oxycontin (Oxycodone HCl) 10 Mg Tabcr 1 Tab PO HS 11/28/16 Reported Ecotrin Or Generic (Aspirin) 81 Mg Tab 81 Mg PO DAILY 10/31/16 Reported Cozaar (Losartan Potassium) 100 Mg Tab 100 Mg PO QPM 10/31/16 Reported Clonazepam 0.5 Mg Tab 0.5 Mg PO QAM 10/31/16 Reported Sertraline HCl 50 Mg Tab 1.5 Tabs PO QAM 10/31/16 Reported Norvasc (Amlodipine Besylate) 5 Mg Tab 10 Mg PO QPM 09/01/12 Reported Protonix (Pantoprazole Sodium) 40 Mg Tab 40 Mg PO BID 06/24/11 Reported Vital Signs Weight (Kilograms): 137.27 Height (Feet): 5 Height (Inches): 8 Date Time Temp Pulse Resp B/P (MAP) Pulse Ox O2 Delivery O2 Flow Rate FiO2 08/12/17 08:57 36.5 84 18 157/76 (103) 98 Room Air Physical Exam General Appearance: no apparent distress Respiratory/Chest: Auscultation: breath sounds normal Cardiovascular: Heart Auscultation: RRR Abdomen: Inspection & Palpation: soft Liver: non-tender Assessment and Plan Stable for colonoscopy
--- NOTE | 2017-08-12 10:26 | GI REPORT ---
Procedure Date: 08/12/2017 9:29 AM Procedure: Colonoscopy Indications: High risk colon cancer surveillance: Personal history of colonic polyps Medicines: Monitored Anesthesia Care Complications: No immediate complications. Estimated Blood Loss: Estimated blood loss: none. Procedure: Pre-Anesthesia Assessment: - Prior to the procedure, a History and Physical was performed, and patient medications and allergies were reviewed. The patient is competent. The risks and benefits of the procedure and the sedation options and risks were discussed with the patient. All questions were answered and informed consent was obtained. Patient identification and proposed procedure were verified by the physician and the nurse in the procedure room. Mental Status Examination: alert and oriented. Airway Examination: normal oropharyngeal airway and neck mobility. Respiratory Examination: clear to auscultation. CV Examination: normal. ASA Grade Assessment: II - A patient with mild systemic disease. After reviewing the risks and benefits, the patient was deemed in satisfactory condition to undergo the procedure. The anesthesia plan was to use monitored anesthesia care (MAC). Immediately prior to administration of medications, the patient was re-assessed for adequacy to receive sedatives. The heart rate, respiratory rate, oxygen saturations, blood pressure, adequacy of pulmonary ventilation, and response to care were monitored throughout the procedure. The physical status of the patient was re-assessed after the procedure. After I obtained informed consent, the scope was passed under direct vision. Throughout the procedure, the patient's blood pressure, pulse, and oxygen saturations were monitored continuously. The scope was introduced through the anus and advanced to the terminal ileum. The colonoscopy was performed without difficulty. The patient tolerated the procedure well. The quality of the bowel preparation was good. The terminal ileum, ileocecal valve, appendiceal orifice, and rectum were photographed. Scope withdrawal time was 20 minutes. Findings: The perianal and digital rectal examinations were normal. The terminal ileum appeared normal. A 20 mm polyp was found in the ascending colon. The polyp was sessile. The polyp was removed with a hot snare underwater (UEMR). Resection and retrieval were complete. Verification of patient identification for the specimen was done by the physician and nurse using the patient's name and date. Two sessile polyps were found in the sigmoid colon. The polyps were 10 mm in size. These polyps were removed with a hot snare. Resection and retrieval were complete. Multiple small and large-mouthed diverticula were found in the sigmoid colon. Non-bleeding internal hemorrhoids were found during retroflexion. The hemorrhoids were small. Impression: - The examined portion of the ileum was normal. - One 20 mm polyp in the ascending colon, removed with a hot snare (UEMR). Resected and retrieved. - Two 10 mm polyps in the sigmoid colon, removed with a hot snare. Resected and retrieved. - Diverticulosis in the sigmoid colon. - Non-bleeding internal hemorrhoids. Recommendation: - Discharge patient to home. - Await pathology results. - Repeat colonoscopy for surveillance based on pathology results. - Return to referring physician. Jason Edouard MD 08/12/2017 10:26:22 AM This report has been signed electronically. Note Initiated On: 08/12/2017 9:29 AM I attest to the content of the Intraoperative Record and orders documented therein, exceptions below
--- NOTE | 2017-08-12 10:28 | Discharge Instructions ---
Endoscopy Patient Instructions Date / Procedure(s) Performed Aug 12, 2017. Colonoscopy Allergy Information Coded Allergies: Ketorolac Tromethamine (Verified Allergy, Unknown, BURNING SENSATION, 08/12) Tramadol (Verified Allergy, Unknown, GI UPSET, 08/02/17) Discharge Date / Findings Aug 12, 2017. Polyps Diverticulosis Hemorrhoids See detailed colonoscopy report Medication Instructions Stopped Medication(s): METFORMAN Provider Instructions Activity Restrictions - No exercising or heavy lifting for 24 hours. - Do not drink alcohol the day of the procedure. - Do not drive a car or operate machinery until the day after the procedure. - Do not make any important decisions or sign important papers in 24 hours after the procedure. Following Day: - Return to full activity which may include returning to work/school. Diet Start your diet with liquids and light foods (jello, soup, juice, toast). Then eat your usual diet if not nauseated. Treatment For Common After Affects For mild abdominal pain, bloating, or excessive gas: - Rest - Eat lightly - Lie on right side Follow-Up Information Follow-up with DR. DELMER KEENAN as scheduled Anesthesia Information What You Should Know You have had a procedure that required some medicine to reduce anxiety and discomfort. This treatment is called moderate sedation. After receiving the treatment, you may be sleepy, but you will be able to breathe on your own. The effects of the treatment may last for several hours. Follow these instructions along with Activity/Diet 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s noted above: * Do NOT do anything where dizziness or clumsiness would be dangerous. * Rest quietly at home today, then you can be up and about tomorrow. * Have a responsible person stay with you the rest of today. * You may have had an I.V. today. If so, you may take the dressing off later today. Recommendations Call your doctor if: * Trouble breathing * Continuous vomiting for more than 24 hours * Temperature above 101 degrees * Severe abdominal pain or bloating * Pain not relieved by pain medicine ordered * There is increased drainage or redness from any incision * A large amount of rectal bleeding greater than 2-3 tablespoons. (If you had a polyp/s removed or have hemorrhoids, a small amount of blood - from the rectum is to be expected.) * You have any unanswered questions or concerns. IN THE EVENT OF A SERIOUS EMERGENCY, GO TO THE NEAREST EMERGENCY ROOM Your discharge instructions were prepared by provider Jason Edouard. Patient Instructions Signature Page Timothy Crabtree Patient (or Guardian) Signature/Date: I have read and understand the instructions given to me by my caregivers. Caregiver/RN/Doctor Signature/Date: The above-named patient and/or guardian has received patient instructions on this date. + Original Patient Signature Page (only) stays with chart. Please make copy for patient.
[2017-08-12 11:27] VITALS: BP 152/94; PULSE 80; O2SAT 98
--- NOTE | 2017-08-12 11:58 | Anesthesiology Progress Note ---
Anesthesia Post Op Note Date & Time Aug 12, 2017 at 11:51 Vital Signs Pain Intensity: 4 Vital Signs Past 12 Hours Date Time Temp Pulse Resp B/P (MAP) Pulse Ox O2 Delivery O2 Flow Rate FiO2 08/12/17 11:27 80 18 152/94 (113) 98 Room Air 08/12/17 11:15 79 18 155/80 (105) 97 Room Air 08/12/17 10:46 81 18 153/83 (106) 95 Room Air 08/12/17 10:31 80 18 129/78 (95) 97 Room Air 08/12/17 08:57 36.5 84 18 157/76 (103) 98 Room Air Notes Mental Status: alert / awake / arousable, participated in evaluation Pt Amnestic to Procedure: Yes Nausea / Vomiting: adequately controlled Pain: adequately controlled Airway Patency, RR, SpO2: stable & adequate BP & HR: stable & adequate Hydration State: stable & adequate Anesthetic Complications: no major complications apparent The patien tis a 61 y/o male with a h/o HTN, DLD, ENRIQUE on CPAP, DM, GERD, morbid obesity and Arthritis and chronic back pain who is s/p colonoscopy with Dr. Edouard. During the procedure the patient became nauseated despite receiving zofran 4mg IV prior to starting. His anesthetic was lightened so that he could protect his airway for the duration of the procedure. He was able to complete the procedure without further problems. In recovery, I explained to the patient and his that the reason his anesthesia was lightened was to prevent his from aspirating. They were understanding. I recommended he mention this if he needs another endoscopy as he may require GA with an endotracheal tube. Also, in recovery the patient began complaining of R sided leg pain which he said was consistent with his sciatica for which he sees a chiropractor and takes Oxycontin as needed. He was given fentanyl 25mcg IV which significantly improved his pain upon discharge. He was told to contact his doctor if his pain persisted or symptoms worsened. The patient was in good spirits and thanked us for his care. He stated that he felt well with no complaints.
== END | disposition home or self-care (01) ==
LOC: C.GI 08:23
PROVIDERS: ATTEND Student in an Organized Health Care Education/Training Program
DX: Z12.11 Encounter for screening for malignant neoplasm of colon (principal); D12.5 Benign neoplasm of sigmoid colon; D12.2 Benign neoplasm of ascending colon; K57.30 Diverticulosis of large intestine without perforation or abscess without bleeding; K64.8 Other hemorrhoids; G47.33 Obstructive sleep apnea (adult) (pediatric); I10 Essential (primary) hypertension; E78.5 Hyperlipidemia, unspecified; F17.200 Nicotine dependence, unspecified, uncomplicated; K21.9 Gastro-esophageal reflux disease without esophagitis; E11.9 Type 2 diabetes mellitus without complications; E66.01 Morbid (severe) obesity due to excess calories; Z68.42 Body mass index [BMI] 45.0-49.9, adult; Z99.89 Dependence on other enabling machines and devices; Z96.653 Presence of artificial knee joint, bilateral; Z79.4 Long term (current) use of insulin; Z79.82 Long term (current) use of aspirin

== ENCOUNTER 2018-11-28 14:49 | Inpatient (IN) ==
[2018-11-28] MEDS ORDERED: SODIUM CHLORIDE 0.9% 1000ML 1,000 ML IV STA (17:13)
[2018-11-28] MEDS ORDERED: DAPTOmycin 600 MG in SYRINGE 0 ML IV ONE (17:13)
[2018-11-28] MEDS ORDERED: PIPERACILL/TAZOBAC CONSULT ACTIVE PRN (17:13)
[2018-11-28] MEDS ORDERED: PIPERACILLIN/TAZOBACTAM 4.5 GM/120 ML BAG IV ONE (17:13)
[2018-11-28] MEDS ORDERED: ACETAMINOPHEN 500 MG TAB PO STA (17:13)
[2018-11-28] MEDS ORDERED: ONDANSETRON INJ 2 MG/ML 2 ML VIAL IV STA (17:15)
[2018-11-28 17:23] LABS: Basophils # (auto) 0.02 K/uL (0-0.2); Basophils % (auto) 0.2 %; Eosinophils # (auto) 0.14 K/uL (0-0.5); Eosinophils % (auto) 1.4 %; Hematocrit (blood only) 34.7 % (42-52); Hemoglobin 11.2 g/dL (14.0-18.0); Immature Granulocytes # (auto) 0.04 K/uL (0.00-0.02); Immature Granulocytes % (auto) 0.4 %; Lymphocytes # (auto) 1.56 K/uL (1.2-3.4); Lymphocytes % (auto) 15.1 %; Mean Corpuscular Hgb Conc 32.3 g/dL (32-36); Mean Corpuscular Volume 82.2 fL (80-100); Mean Platelet Volume 11.7 fL (7.4-10.4); Monocytes # (auto) 1.08 K/uL (0.11-0.59); Monocytes % (auto) 10.4 %; Neutrophils # (auto) 7.51 K/uL (1.4-6.5); Neutrophils % (auto) 72.5 %; Platelet Count 196 K/uL (130-400); RDW Coefficient of Variation 16.1 % (11.5-14.5); RDW Standard Deviation 48.7 fL (36.4-46.3); Red Blood Count 4.22 M/uL (4.7-6.1); White Blood Count 10.35 K/uL (4.8-10.8)
[2018-11-28 17:39] LABS: BUN Creatinine Ratio 10.7 (10-20); Calcium 9.2 mg/dl (8.5-10.1); Creatinine Clr Calc Pharmacy 112.1 ml/min; Est GFR (Non-African American) 85.4; Potassium 3.9 mmol/L (3.5-5.1)
[2018-11-28 17:42] LABS: Albumin Globulin Ratio 0.6 (0.9-2); Bilirubin,Total 0.5 mg/dl (0.2-1); C Reactive Protein 4.65 mg/dl (0-0.29); Globulin 5.3 gm/dl (2.5-4.0); Total Protein 8.3 gm/dl (6.4-8.2)
[2018-11-28] MEDS: HYDROmorphone INJ 0.5 MG/0.5 ML SYR IV PRN ×5 (18:28→21:58)
[2018-11-28] MEDS ORDERED: IOVERSOL 100ml IV PRN (19:02)
--- NOTE | 2018-11-28 19:29 | CT Scan Report ---
CT foot LT w con CLINICAL HISTORY: 63 years-old Male presenting with left foot ulcer, pus drainage. TECHNIQUE: Multidetector CT of the left foot was performed after the administration of intravenous co ntrast. IV contrast: 90 mL of Optiray 320. One or more dose lowering techniques were used consistent with the principles of ALARA (as low as reasonably achievable), including automatic exposure control, mA or kV adjustment to individual patient size, and/or use of iterative reconstruction. COMPARISON: MR from 04/21/2018. CT DOSE (mGy.cm): The estimated cumulative dose is 217.67 mGy.cm. FINDINGS: Fiber Machine Tender topogram: Unremarkable. A soft tissue ulceration is evident, which results in erosion of the subcutaneous fat and diffuse inf iltrative change. This has significantly worsened since the prior exam. The soft tissue ulceration me asures approximately 4 cm in diameter. This appears to involve the subjacent plantar fascia with infi ltrative changes deep to the plantar fascia. The degree of chronic Charcot joint of the midfoot and m idfoot-forefoot articulations make assessment for osteomyelitis nearly impossible. Traversing vascula ture along the plantar aspect of the foot appears grossly patent. There is no rim-enhancing fluid col lection that is apparent. Diffuse subcutaneous edema in the foot. Diffuse fatty atrophy of musculatur e. Allowing for the degree of osseous dissolution and and disorganization in the mid foot no gross ev idence of fracture. IMPRESSION: 1. Severe ulceration along the plantar aspect of the foot, which has traumatically increased from pr ior and involves the subjacent plantar fascia. No evidence of abscess. 2. The degree of severity of chronic Charcot joint of the mid foot and midfoot-forefoot articulation s makes assessment on CT for osteomyelitis nearly impossible. Electronically signed by: Yvon Cortes M.D. 11/28/2018 7:28 PM
[2018-11-28] MEDS ORDERED: HYDROmorphone INJ 1 MG/ML SYRINGE IV STA (22:18)
[2018-11-28] MEDS ORDERED: ACETAMINOPHEN 325 MG TAB PO PRN (22:55)
[2018-11-28] MEDS ORDERED: clonazePAM 0.5 MG TAB PO PRN (22:55)
[2018-11-28] MEDS ORDERED: ONDANSETRON INJ 2 MG/ML 2 ML VIAL IV PRN (22:55)
[2018-11-28] MEDS ORDERED: ONDANSETRON 4 MG OD TAB PO PRN (22:55)
--- NOTE | 2018-11-28 23:09 | History & Physical Report ---
Date of Service November 28, 2018 Assessment & Plan (1) Diabetic ulcer of left foot: Nonhealing diabetic foot ulcer left foot associated with Charcot deformity. Worsening ulcer despite debridements and several courses of antibiotics. Now with foul-smelling drainage, fever. Does not appear to be septic, but sedimentation rate and C-reactive protein are elevated. No obvious osteomyelitis per CT. Blood cultures and wound culture were obtained in the ED and patient was started on daptomycin and piperacillin/tazobactam which be continued. Consult ID and Wound Care. Patient has been seen by Orthopedics at [facility] and may prefer to go to [facility] if surgical intervention is necessary. (2) Charcot foot due to diabetes mellitus: Nonweightbearing left foot. 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 Patient reports that blood sugars are well controlled at home. Check hemoglobin A1c. Hold metformin and glipizide during hospital stay. Lantus/NovoLog per protocol. (4) HTN (hypertension): Continue metoprolol. (5) NERIQUE (obstructive sleep apnea): Patient prefers using his own CPAP equipment from home. (6) Morbid obesity due to excess calories: Weight 143 kg, BMI 48. Heart healthy/diabetic diet. (7) Chronic pain: Chronic pain secondary to neuropathy, arthropathy, back pain. Continue usual analgesics. (8) Diabetic peripheral neuropathy associated with type 2 diabetes mellitus: As noted above. (9) DVT prophylaxis: Increased risk for VTE due to decreased mobility and infection. Subcutaneous enoxaparin. (10) Discharge planning issues: Discharge disposition to be determined. Family Medicine follow-up with Dr. Bates. History of Present Illness Chief Complaint: fever, foot ulcer Primary Care Provider: Karlie Bates, DO 63-year-old male with history of diabetes mellitus type 2, Charcot deformity of left foot, and chronic ulcer of left foot. He has been followed by Infectious Disease as well as [facility] wound care clinic locally. He has also been seen in consultation by Orthopedics at [facility]. The foot ulcer was noted several months ago. He has undergone several courses of antibiotic therapy and multiple debridements. Has been taking levofloxacin for past several weeks. Nevertheless, the ulcer has not healed and recently has been draining foul- smelling fluid. He has noted intermittent fevers. Experiencing severe pain in the left foot, currently managed with oxycodone extended release and oxycodone immediate release. Allergies Allergy/AdvReac Type Severity Reaction Status Date / Time ketorolac Allergy Unknown BURNING Verified 11/28/18 10:13 SENSATION tramadol Allergy Unknown GI UPSET Verified 11/28/18 10:13 ciprofloxacin [From Cipro] AdvReac Intermediate upset Verified 11/28/18 10:13 stomach Home Medications Home Medications Medication Instructions Recorded Confirmed Type Lyrica 225 mg PO TID 04/21/18 11/28/18 History aspirin [Aspir-Low] 81 mg PO DAILY 04/21/18 11/28/18 History clonazepam [Klonopin] 0.25 mg PO BID PRN 04/21/18 11/28/18 History cyanocobalamin (vitamin B-12) 1,000 mcg PO DAILY 04/21/18 11/28/18 History [Vitamin B-12] glipizide 2.5 mg PO DAILY 04/21/18 11/28/18 History losartan 100 mg PO DAILY 04/21/18 11/28/18 History metformin 500 mg PO DAILY 04/21/18 11/28/18 History ondansetron 4 mg PO TID PRN 04/21/18 11/28/18 History oxycodone [OxyContin] 10 mg PO Q12 04/21/18 11/28/18 History pantoprazole 40 mg PO BID 04/21/18 11/28/18 History sertraline [Zoloft] 50 mg PO DAILY 04/21/18 11/28/18 History atorvastatin 20 mg tablet 20 mg PO DAILY 10/02/18 11/28/18 History levofloxacin 500 mg tablet 500 mg PO DAILY 10/27/18 11/28/18 History metoprolol succinate 50 mg PO DAILY 11/28/18 11/28/18 History oxycodone 10 mg PO TID 11/28/18 11/28/18 History Past Med/Surg History Medical History DMII (diabetes mellitus, type 2) (Chronic) Chronic pain (Chronic) Multiple rib fractures involving four or more ribs (Resolved) OA (osteoarthritis) of knee (Chronic) GERD (gastroesophageal reflux disease) (Chronic) ENRIQUE (obstructive sleep apnea) (Chronic) Anxiety (Chronic) Depression (Chronic) Morbid obesity due to excess calories (Chronic) HTN (hypertension) (Chronic) Smoker (Chronic) Acquired claw toe of left foot (Acute) Callus (Acute) Charcot's joint of right foot (Acute) Charcot's joint, left ankle and foot (Acute) Chronic ulcer of left midfoot (Acute) Diabetes mellitus with diabetic polyneuropathy (Acute) Surgical History History of bilateral knee replacement (Chronic) H/O knee surgery (Chronic) S/P trigger finger release (Chronic) Family History Father Lung cancer Mother Hypertension Dementia Social History Preferred Language: Finnish Communication Ability: Effective Category Development Manager Required: No Beliefs That Will Affect Care: None marital status: Current Living Situation: Spouse Other Information That Helps Us Care for You: No Feels Safe at Home: Yes Smoking Status: Heavy tobacco smoker Tobacco Type: cigarettes Do You Dip or Chew Tobacco: No Second Hand Exposure: Yes Tobacco Cessation Education Requested by Patient: No Hx Alcohol Use: Yes Alcohol type: beer Hx Substance Use: No Review of Systems Constitutional: + fever; no weight loss Eyes: no diplopia and no worsening vision Ear, Nose, Mouth, Throat: + sore throat (mild); no nasal congestion and no sinus pain/pressure Respiratory: no cough and no dyspnea Cardiovascular: + edema; no chest pain and no palpitations Gastrointestinal: no nausea, no vomiting, no constipation, no diarrhea/loose stools, no blood in stools and no melena Genitourinary: + hematuria (microscopic since childhood); no dysuria Musculoskeletal: + joint pain; no myalgia Integumentary: no rash and no new lesions Neurologic: no headache(s) Endocrine: no polydipsia and no polyuria blood sugars well-controlled Hematologic / Lymphatic: no easy bleeding, no easy bruising and no lymphadenopathy Physical Exam Constitutional: WD/WN, vitals as above + obese; no acute distress Eyes: PERRL, conjunctivae normal, anicteric sclerae ENMT: external ear and nose normal, oropharynx normal Neck: trachea midline, no thyromegaly Respiratory: normal respiratory effort, lungs clear to auscultation Cardiovascular: Rate/Rhythm: regular rate Heart Sounds: no gallop, no murmur and no cardiac rub Vessels: no JVD Extremities: normal capillary refill; no calf tenderness and no edema pedal pulses diminished Gastrointestinal (Abdomen): normal bowel sounds, soft, nontender, no hepatosplenomegaly Musculoskeletal: Head/Neck/Chest: neck supple Extremities: strength 5/5 throughout; no cyanosis and no clubbing Charcot deformity left foot ulcer plantar surface left foot measuring approximately 3 x 4 cm, no drainage, mild surrounding erythema Skin: no rashes, warm and dry Neurologic: PERRL, EOMI no facial palsy no dysarthria or aphasia patellar DTR's 2/2 bilat Psychiatric: Orientation: alert and oriented x 3 Affect: euthymic affect Lymphatic: no cervical lymphadenopathy Results & Data Vital Signs (Past 12 Hours) Vital Signs Temp Pulse Pulse Resp BP BP Pulse Ox 11/28/18 22:20 36.8 C 11/28/18 21:49 79 20 106/62 98 11/28/18 19:50 75 20 116/70 98 11/28/18 15:14 37.8 C H 89 22 122/78 99 Laboratory Results Laboratory Results - last 24 hr 11/28/18 11/28/18 11/28/18 17:07 17:07 17:07 WBC 10.35 RBC 4.22 L Hgb 11.2 L Hct 34.7 L MCV 82.2 MCH 26.5 MCHC 32.3 RDW Std Deviation 48.7 H RDW Coeff of Madelyn 16.1 H Plt Count 196 MPV 11.7 H Immature Gran % (Auto) 0.4 Neut % (Auto) 72.5 Lymph % (Auto) 15.1 [place] % (Auto) 10.4 Eos % (Auto) 1.4 Baso % (Auto) 0.2 Immature Gran # (Auto) 0.04 H Neut # (Auto) 7.51 H Lymph # (Auto) 1.56 [place] # (Auto) 1.08 H Eos # (Auto) 0.14 Baso # (Auto) 0.02 ESR 78 H PT INR Sodium 134 L Potassium 3.9 Chloride 99 Carbon Dioxide 30 Anion Gap 5.0 BUN 10 Creatinine 0.95 Est Cr Clr Drug Dosing 112.1 Est GFR ( Amer) 99.0 Est GFR (Non-Af Amer) 85.4 BUN/Creatinine Ratio 10.7 Glucose 95 Estimat Average Glucose Hemoglobin A1c POC Lactic Acid Colton Calcium 9.2 Total Bilirubin 0.5 AST 19 ALT 19 Alkaline Phosphatase 130 H C-Reactive Protein 4.65 H Total Protein 8.3 H Albumin 3.0 L Globulin 5.3 H Albumin/Globulin Ratio 0.6 L 11/28/18 11/29/18 11/29/18 17:12 06:38 06:38 WBC 7.96 RBC 4.12 L Hgb 11.1 L Hct 34.9 L MCV 84.7 MCH 26.9 MCHC 31.8 L RDW Std Deviation 50.4 H RDW Coeff of Madelyn 16.2 H Plt Count 190 MPV 11.2 H Immature Gran % (Auto) 0.5 Neut % (Auto) 65.7 Lymph % (Auto) 20.1 [place] % (Auto) 10.4 Eos % (Auto) 3.0 Baso % (Auto) 0.3 Immature Gran # (Auto) 0.04 H Neut # (Auto) 5.23 Lymph # (Auto) 1.60 [place] # (Auto) 0.83 H Eos # (Auto) 0.24 Baso # (Auto) 0.02 ESR PT INR Sodium 136 Potassium 3.9 Chloride 103 Carbon Dioxide 29 Anion Gap 4.0 BUN 16 D Creatinine 1.21 Est Cr Clr Drug Dosing 88.0 Est GFR ( Amer) 73.9 Est GFR (Non-Af Amer) 63.8 BUN/Creatinine Ratio 13.3 Glucose 98 Estimat Average Glucose Hemoglobin A1c POC Lactic Acid Colton 1.26 Calcium 8.8 Total Bilirubin AST ALT Alkaline Phosphatase C-Reactive Protein Total Protein Albumin Globulin Albumin/Globulin Ratio 11/29/18 11/29/18 06:38 06:38 WBC RBC Hgb Hct MCV MCH MCHC RDW Std Deviation RDW Coeff of Madelyn Plt Count MPV Immature Gran % (Auto) Neut % (Auto) Lymph % (Auto) [place] % (Auto) Eos % (Auto) Baso % (Auto) Immature Gran # (Auto) Neut # (Auto) Lymph # (Auto) [place] # (Auto) Eos # (Auto) Baso # (Auto) ESR PT 11.6 INR 1.1 Sodium Potassium Chloride Carbon Dioxide Anion Gap BUN Creatinine Est Cr Clr Drug Dosing Est GFR ( Amer) Est GFR (Non-Af Amer) BUN/Creatinine Ratio Glucose Estimat Average Glucose Pending Hemoglobin A1c Pending POC Lactic Acid Colton Calcium Total Bilirubin AST ALT Alkaline Phosphatase C-Reactive Protein Total Protein Albumin Globulin Albumin/Globulin Ratio Diagnostic Findings CT LEFT FOOT IMPRESSION: 1. Severe ulceration along the plantar aspect of the foot, which has traumatically increased from prior and involves the subjacent plantar fascia. No evidence of abscess. 2. The degree of severity of chronic Charcot joint of the mid foot and midfoot- forefoot articulations makes assessment on CT for osteomyelitis nearly impossible. Electronically signed by: Yvon Cortes M.D. 11/28/2018 7:28 PM (1) Diabetic ulcer of left foot Diabetes mellitus type: other specified (including HARIKA) Diabetic foot ulcer location: unspecified part of foot Non-pressure ulcer stage: unspecified non- pressure ulcer stage Qualified Code(s): E13.621 - Other specified diabetes mellitus with foot ulcer; L97.529 - Non-pressure chronic ulcer of other part of left foot with unspecified severity
[2018-11-29] MEDS: OXYCODONE HCL 10 MG TABCR (OXYCONTIN) PO SCH ×3 (00:02→22:10)
[2018-11-29] MEDS ORDERED: OXYCODONE HCL IR 5 MG TAB (IMMEDIATE RELEASE) PO ONE (00:15)
--- NOTE | 2018-11-29 02:01 | Emergency Department Note ---
Entered by Melanie Harper acting as a scribe for Enrique Feldman MD ED Provider Note CHIEF COMPLAINT: Left foot wound HISTORY OF PRESENT ILLNESS: The patient is a 63 year old male who presents to the Emergency Room with complaints of a worsening left foot wound. He reports that the wound began as a "small cut" about 8 months ago, and it has been worsening since. The patient complains of left lower extremity swelling and foot pain. He complains of nausea, a cough, and urinary frequency. Pt denies LOC, headache, fevers, chills, diaphoresis, visual changes, neck pain, chest pain, breathing difficulties, vomiting, abdominal pain, back pain, melena, hematochezia, numbness, weakness, lymphadenopathy, rash, or other complaints. The patient states that he has been following up with Dr. Francis at the wound care clinic, and he had an appointment earlier today. The patient notes that care from the wound clinic has not provided any relief. He notes that he was referred to the ED while at his appointment. The patient notes that he had been on Levaquin for about 6 weeks. He notes that he has an appointment with an orthopedic surgeon at the end of this month. REVIEW OF SYSTEMS: See HPI for pertinent positives and negatives. A total of ten systems were reviewed and were otherwise negative. PMHx/PSHx: Diabetes, GERD, hypertension, H/O knee surgery, diabetic foot ulcer SOCIAL HISTORY: Patient lives at home. PHYSICAL EXAM: GENERAL: Awake, alert, uncomfortable-appearing, in no distress HENT: Normocephalic, atraumatic. Oropharynx unremarkable. EYES: PERRL. Normal conjunctiva. Sclera non-icteric. NECK: Inspection normal. Non-tender. Supple. No nuchal rigidity. FROM. No masses. RESPIRATORY: Clear to auscultation. No wheezes. No rales. Normal respiratory effort. CARDIAC: Normal rate. Normal rhythm. No murmurs. No rubs. Extremities warm and well perfused. Pulses equal. No JVD. GI: Soft, non-distended. No tenderness to palpation. No rebound or guarding. No masses. RECTAL: Deferred. MUSCULOSKELETAL: Atraumatic. Chest examination reveals no tenderness. The back is symmetrical on inspection without obvious abnormality. There is no CVA tenderness to palpation. No joint edema. LOWER EXTREMITIES: Calves are equal size bilaterally and non-tender. No discoloration. There is a large ulcer on the bottom of the left foot with surrounding swelling, tenderness, and purulent drainage. There are surgical scars on the bilateral knees from prior knee replacements. NEURO: Normal sensorium. No sensory or motor deficits noted. SKIN: No rash or jaundice noted. EMERGENCY DEPARTMENT COURSE: 170: Past medical records reviewed. The patient was evaluated in room B03B, and a complete history and physical examination were performed. 1829: I reevaluated and updated the patient. 2017: I spoke with Dr. Grimaldo, [facility] hospitalist, about the patient's case. He will further evaluate the patient. 2019: I updated the patient about the plan. MEDICAL DECISION MAKING: Prior records reviewed and summarized above. Triage Nursing notes reviewed and agree them. Additional history obtained from the family. The patient's history was concerning for swelling and pain in the leg. Differential diagnosis: Etiologies such as cellulitis, infected diabetic ulcer, DVT, joint effusion, infection, trauma, muscular, lymphedema, idiopathic, CHF, as well as others were entertained.. Physical examination: The physical examination revealed signs of infection. Neurovascularly intact. ER treatment provided: IV daptomycin IV Zosyn IV Dilaudid IV Zofran IV normal saline hydration On reassessment the patient felt better. Diagnostics interpreted by me: The labs revealed an unremarkable CBC. Chemistry panel unremarkable. The patient had elevation of his CRP and ESR. Blood cultures pending. Wound culture pending. Imaging studies: CT imaging of the foot was performed. Degenerative changes secondary to Charcot foot noted. Radiology could not comment on possible osteomyelitis. No abscess. Consultation: A consultation was placed with the hospitalist. The case was discussed and diagnostics were reviewed. The patient was evaluated in the ER for further treatment. IMPRESSION: Diabetic ulcer of the left foot, fever, left foot pain PLAN: Further management by hospitalist The scribe's documentation has been prepared under my direction and personally reviewed by me in its entirety. I confirm that the note above accurately reflects all work, treatment, procedures, and medical decision making performed by me. Impression & Plan Diabetic ulcer of left foot, Fever, Left foot pain Past Med/Surg History Medical History DMII (diabetes mellitus, type 2) (Chronic) Chronic pain (Chronic) Multiple rib fractures involving four or more ribs (Resolved) OA (osteoarthritis) of knee (Chronic) GERD (gastroesophageal reflux disease) (Chronic) ENRIQUE (obstructive sleep apnea) (Chronic) Anxiety (Chronic) Depression (Chronic) Morbid obesity due to excess calories (Chronic) HTN (hypertension) (Chronic) Smoker (Chronic) Acquired claw toe of left foot (Acute) Callus (Acute) Charcot's joint of right foot (Acute) Charcot's joint, left ankle and foot (Acute) Chronic ulcer of left midfoot (Acute) Diabetes mellitus with diabetic polyneuropathy (Acute) Surgical History History of bilateral knee replacement (Chronic) H/O knee surgery (Chronic) S/P trigger finger release (Chronic) Family History Father Lung cancer Mother Hypertension Social History Preferred Language: Albanian Communication Ability: Effective Core Cutter And Reamer Required: No Beliefs That Will Affect Care: None marital status: Current Living Situation: Spouse Other Information That Helps Us Care for You: No Feels Safe at Home: Yes Smoking Status: Heavy tobacco smoker Tobacco Type: cigarettes Do You Dip or Chew Tobacco: No Second Hand Exposure: Yes Tobacco Cessation Education Requested by Patient: No Hx Alcohol Use: Yes Alcohol type: beer Hx Substance Use: No Results & Data Vital Signs Vital Signs - 24 hr 11/28/18 15:14 11/28/18 19:50 Temperature 37.8 C H Temperature Source Oral Sepsis Recent Fever Within 48 Hours Yes Sepsis New/Unexplained Change in Mental Status No Sepsis Action Taken by Nursing No Action Required Pulse Rate 89 Pulse Rate [Apical] 75 Pulse Rhythm Regular Pulse Strength Normal Respiratory Rate 22 20 Respiratory Effort / Characteristics Non-Labored Spontaneous Respiratory Depth Normal Respiratory Pattern Regular Blood Pressure 122/78 Blood Pressure [Left Arm] 116/70 Blood Pressure Mean 92 Blood Pressure Mean [Left Arm] 85 Blood Pressure Position Sitting Pulse Oximetry 99 98 Oxygen Delivery Method Room Air Room Air Home Medications Current Medication List: was personally reviewed by me Laboratory Data Attestation: I reviewed the patient's lab results. Result diagrams: 11/28/18 17:07 11/28/18 17:07 Lab Results 11/28/18 11/28/18 11/28/18 Range/Units 17:07 17:07 17:07 WBC 10.35 (4.8-10.8) K/uL RBC 4.22 L (4.7-6.1) M/uL Hgb 11.2 L (14.0-18.0) g/dL Hct 34.7 L (42-52) % MCV 82.2 (80-100) fL MCH 26.5 (25-34) pg MCHC 32.3 (32-36) g/dL RDW Std Deviation 48.7 H (36.4-46.3) fL RDW Coeff of Madelyn 16.1 H (11.5-14.5) % Plt Count 196 (130-400) K/uL MPV 11.7 H (7.4-10.4) fL Immature Gran % (Auto) 0.4 % Neut % (Auto) 72.5 % Lymph % (Auto) 15.1 % [place] % (Auto) 10.4 % Eos % (Auto) 1.4 % Baso % (Auto) 0.2 % Immature Gran # (Auto) 0.04 H (0.00-0.02) K/uL Neut # (Auto) 7.51 H (1.4-6.5) K/uL Lymph # (Auto) 1.56 (1.2-3.4) K/uL [place] # (Auto) 1.08 H (0.11-0.59) K/uL Eos # (Auto) 0.14 (0-0.5) K/uL Baso # (Auto) 0.02 (0-0.2) K/uL ESR 78 H (0-14) mm/hr Sodium 134 L (136-145) mmol/L Potassium 3.9 (3.5-5.1) mmol/L Chloride 99 (98-107) mmol/L Carbon Dioxide 30 (21-32) mmol/L Anion Gap 5.0 (3-11) BUN 10 (7-18) mg/dl Creatinine 0.95 (0.6-1.4) mg/dl Est Cr Clr Drug Dosing 112.1 ml/min Est GFR ( Amer) 99.0 Est GFR (Non-Af Amer) 85.4 BUN/Creatinine Ratio 10.7 (10-20) Glucose 95 (70-99) mg/dl POC Lactic Acid [place] (0.90-1.70) mmol/L Calcium 9.2 (8.5-10.1) mg/dl Total Bilirubin 0.5 (0.2-1) mg/dl AST 19 (15-37) U/L ALT 19 (12-78) U/L Alkaline Phosphatase 130 H (45-117) U/L C-Reactive Protein 4.65 H (0-0.29) mg/dl Total Protein 8.3 H (6.4-8.2) gm/dl Albumin 3.0 L (3.4-5.0) gm/dl Globulin 5.3 H (2.5-4.0) gm/dl Albumin/Globulin Ratio 0.6 L (0.9-2) 11/28/18 Range/Units 17:12 WBC (4.8-10.8) K/uL RBC (4.7-6.1) M/uL Hgb (14.0-18.0) g/dL Hct (42-52) % MCV (80-100) fL MCH (25-34) pg MCHC (32-36) g/dL RDW Std Deviation (36.4-46.3) fL RDW Coeff of Madelyn (11.5-14.5) % Plt Count (130-400) K/uL MPV (7.4-10.4) fL Immature Gran % (Auto) % Neut % (Auto) % Lymph % (Auto) % [place] % (Auto) % Eos % (Auto) % Baso % (Auto) % Immature Gran # (Auto) (0.00-0.02) K/uL Neut # (Auto) (1.4-6.5) K/uL Lymph # (Auto) (1.2-3.4) K/uL [place] # (Auto) (0.11-0.59) K/uL Eos # (Auto) (0-0.5) K/uL Baso # (Auto) (0-0.2) K/uL ESR (0-14) mm/hr Sodium (136-145) mmol/L Potassium (3.5-5.1) mmol/L Chloride (98-107) mmol/L Carbon Dioxide (21-32) mmol/L Anion Gap (3-11) BUN (7-18) mg/dl Creatinine (0.6-1.4) mg/dl Est Cr Clr Drug Dosing ml/min Est GFR ( Amer) Est GFR (Non-Af Amer) BUN/Creatinine Ratio (10-20) Glucose (70-99) mg/dl POC Lactic Acid Col[place] 1.26 (0.90-1.70) mmol/L Calcium (8.5-10.1) mg/dl Total Bilirubin (0.2-1) mg/dl AST (15-37) U/L ALT (12-78) U/L Alkaline Phosphatase (45-117) U/L C-Reactive Protein (0-0.29) mg/dl Total Protein (6.4-8.2) gm/dl Albumin (3.4-5.0) gm/dl Globulin (2.5-4.0) gm/dl Albumin/Globulin Ratio (0.9-2) Administered Medications Ioversol (Optiray 320 100ml) 90 ml IV ONCE PRN PRN Reason: Interaction Checking Stop: 12/02/18 19:01 Last Admin: 11/28/18 19:03 Dose: 90 ml Documented by: [id number] Oxycodone HCl (Oxycontin) 10 mg PO Q12 TAMIKO Stop: 12/12/18 23:29 Last Admin: 11/29/18 00:02 Dose: 10 mg Documented by: [id number] Discontinued Medications Acetaminophen (Tylenol) 1,000 mg PO NOW STA Stop: 11/28/18 17:14 Last Admin: 11/28/18 17:58 Dose: 1,000 mg Documented by: [id number] Hydromorphone HCl (Dilaudid) 0.5 mg IV Q15M PRN PRN Reason: Pain Stop: 12/12/18 17:14 Last Admin: 11/28/18 21:58 Dose: 0.5 mg Documented by: [id number] Admin: 11/28/18 20:32 Dose: 0.5 mg Documented by: [id number] Admin: 11/28/18 20:14 Dose: 0.5 mg Documented by: [id number] Admin: 11/28/18 19:48 Dose: 0.5 mg Documented by: [id number] Admin: 11/28/18 18:28 Dose: 0.5 mg Documented by: [id number] Hydromorphone HCl (Dilaudid) 1 mg IV NOW STA Stop: 11/28/18 22:19 Last Admin: 11/28/18 22:39 Dose: 1 mg Documented by: [id number] Daptomycin 600 mg/ Syringe 12 mls @ 6 mls/min IV NOW ONE; Protocol Stop: 11/28/18 17:14 Last Admin: 11/28/18 17:58 Dose: 6 mls/min Documented by: [id number] Piperacillin Sod/Tazobactam Sod (Zosyn) 4.5 gm in 120 mls @ 240 mls/hr IV NOW ONE Stop: 11/28/18 17:42 Last Infusion: 11/28/18 20:31 Dose: 0 mls/hr Documented by: [id number] Admin: 11/28/18 17:58 Dose: 240 mls/hr Documented by: [id number] Sodium Chloride (Nss 1000ml) 1,000 mls @ 125 mls/hr IV .Q8H STA Stop: 11/29/18 01:12 Last Admin: 11/28/18 17:58 Dose: 125 mls/hr Documented by: [id number] Ondansetron HCl (Zofran) 4 mg IV NOW STA Stop: 11/28/18 17:16 Last Admin: 11/28/18 17:58 Dose: 4 mg Documented by: [id number] Oxycodone HCl (Roxicodone Immediate Rel) 10 mg PO ONE ONE Stop: 11/29/18 00:16 Last Admin: 11/29/18 01:01 Dose: 10 mg Documented by: [id number] Imaging Data Radiologist's Impression: Radiology results as stated below per my review and the radiologist's interpretation: CT foot LT w con CLINICAL HISTORY: 63 years-old Male presenting with left foot ulcer, pus drainage. TECHNIQUE: Multidetector CT of the left foot was performed after the administration of intravenous contrast. IV contrast: 90 mL of Optiray 320. One or more dose lowering techniques were used consistent with the principles of ALARA (as low as reasonably achievable), including automatic exposure control, mA or kV adjustment to individual patient size, and/or use of iterative reconstruction. COMPARISON: MR from 04/21/2018. CT DOSE (mGy.cm): The estimated cumulative dose is 217.67 mGy.cm. FINDINGS: Associate Curator topogram: Unremarkable. A soft tissue ulceration is evident, which results in erosion of the subcutaneous fat and diffuse infiltrative change. This has significantly worsened since the prior exam. The soft tissue ulceration measures approximately 4 cm in diameter. This appears to involve the subjacent plantar fascia with infiltrative changes deep to the plantar fascia. The degree of chronic Charcot joint of the midfoot and midfoot-forefoot articulations make assessment for osteomyelitis nearly impossible. Traversing vasculature along the plantar aspect of the foot appears grossly patent. There is no rim-enhancing fluid collection that is apparent. Diffuse subcutaneous edema in the foot. Diffuse fatty atrophy of musculature. Allowing for the degree of osseous dissolution and and disorganization in the mid foot no gross evidence of fracture. IMPRESSION: 1. Severe ulceration along the plantar aspect of the foot, which has traumatically increased from prior and involves the subjacent plantar fascia. No evidence of abscess. 2. The degree of severity of chronic Charcot joint of the mid foot and midfoot- forefoot articulations makes assessment on CT for osteomyelitis nearly impossible. Electronically signed by: Yvon Cortes M.D. 11/28/2018 7:28 PM Blood Pressure Blood Pressure Findings: Normal blood pressure Blood Pressure Disposition: did not require urgent referral Discharge Plan Visit Data *Final* Discharge Date/Time: 11/28/18 22:28 Chief Complaint: Infection, Wound Stated Complaint: L FOOT WOUND - REFERRED BY WOUND CLINIC ED Provider: Enrique Feldman Discharge Problem: Diabetic ulcer of left foot, Fever, Left foot pain Patient Disposition: Admitted As Inpatient Discharge Instructions Interventions: ED Discharge Assessment Last Done: 11/28/18 22:28 Discharge Problem: Diabetic ulcer of left foot Qualifiers: Diabetic foot ulcer location: unspecified part of foot Diabetes mellitus type: other specified (including HARIKA) Non-pressure ulcer stage: unspecified non- pressure ulcer stage Qualified Code(s): E13.621 - Other specified diabetes mellitus with foot ulcer Fever Qualifiers: Fever type: unspecified Qualified Code(s): R50.9 - Fever, unspecified The scribe's documentation has been prepared under my direction and personally reviewed by me in its entirety. I confirm that the note above accurately reflects all work, treatment, procedures, and medical decision making performed by me.
[2018-11-29] MEDS: HYDROmorphone INJ 1 MG/ML SYRINGE IV PRN ×5 (02:04→20:08)
[2018-11-29] MEDS: OXYCODONE HCL IR 5 MG TAB (IMMEDIATE RELEASE) PO SCH ×3 (06:17→22:11)
[2018-11-29] MEDS ORDERED: PIPERACILL/TAZOBAC CONSULT ACTIVE PRN (06:40)
[2018-11-29 07:00] LABS: INR 1.1 (0.9-1.1); Prothrombin Time 11.6 Seconds (9.0-12.0)
[2018-11-29] MEDS ORDERED: PIPERACILLIN/TAZOBACTAM 4.5 GM in DEXTROSE 5% 100 ML IV STA (07:00)
[2018-11-29] MEDS ORDERED: DAPTOMYCIN CONSULT ACTIVE PRN (07:02)
[2018-11-29 07:07] LABS: Basophils # (auto) 0.02 K/uL (0-0.2); Basophils % (auto) 0.3 %; Eosinophils # (auto) 0.24 K/uL (0-0.5); Hematocrit (blood only) 34.9 % (42-52); Hemoglobin 11.1 g/dL (14.0-18.0); Immature Granulocytes # (auto) 0.04 K/uL (0.00-0.02); Immature Granulocytes % (auto) 0.5 %; Lymphocytes % (auto) 20.1 %; Mean Corpuscular Hgb Conc 31.8 g/dL (32-36); Mean Corpuscular Volume 84.7 fL (80-100); Mean Platelet Volume 11.2 fL (7.4-10.4); Monocytes # (auto) 0.83 K/uL (0.11-0.59); Monocytes % (auto) 10.4 %; Neutrophils # (auto) 5.23 K/uL (1.4-6.5); Neutrophils % (auto) 65.7 %; Platelet Count 190 K/uL (130-400); RDW Coefficient of Variation 16.2 % (11.5-14.5); RDW Standard Deviation 50.4 fL (36.4-46.3); Red Blood Count 4.12 M/uL (4.7-6.1); White Blood Count 7.96 K/uL (4.8-10.8)
[2018-11-29 07:18] LABS: BUN Creatinine Ratio 13.3 (10-20); Calcium 8.8 mg/dl (8.5-10.1); Est GFR (African American) 73.9; Est GFR (Non-African American) 63.8; Potassium 3.9 mmol/L (3.5-5.1)
[2018-11-29] MEDS: ASPIRIN 81 MG ECTAB PO SCH (08:12)
[2018-11-29] MEDS: LOSARTAN POTASSIUM 50 MG TAB PO SCH (08:12)
[2018-11-29] MEDS: PANTOprazole 40 MG TAB PO SCH ×2 (08:12→22:11)
[2018-11-29] MEDS: CYANOCOBALAMIN 500 MCG TABLET (VITAMIN B-12) PO SCH (08:12)
[2018-11-29] MEDS: SERTRALINE HCL 50 MG TABLET PO SCH (08:12)
[2018-11-29] MEDS: METOPROLOL SUCC 50MG EXT REL TAB PO SCH (08:13)
[2018-11-29] MEDS: ENOXAPARIN INJ 40 MG/0.4 ML SYR SQ SCH (08:13)
[2018-11-29] MEDS: PREGABALIN 75 MG CAP PO SCH ×3 (08:31→22:10)
[2018-11-29 08:41] LABS: Estimated Average Glucose 123 mg/dl; Hemoglobin A1C 5.9 % (4.5-5.6)
[2018-11-29] MEDS ORDERED: METOPROLOL SUCC 50MG EXT REL TAB PO SCH (09:00)
[2018-11-29] MEDS ORDERED: OXYCODONE IR HOME PACK PO SCH (09:00)
[2018-11-29] MEDS: INSULIN ASPART 100 UNITS/ML 3 ML PEN SC SCH ×4 (09:15→22:12)
[2018-11-29] MEDS: INSULIN GLARGINE SOLOSTAR 100 UNITS/ML 3 ML PEN SC SCH ×2 (09:15→22:09)
--- NOTE | 2018-11-29 09:48 | Hospitalist Progress Note ---
Date of Service November 29, 2018 Assessment & Plan (1) Diabetic ulcer of left foot: Per admitting service notes Nonhealing diabetic foot ulcer left foot associated with Charcot deformity. Worsening ulcer despite debridements and several courses of antibiotics. Now with foul-smelling drainage, fever. Does not appear to be septic, but sedimentation rate and C-reactive protein are elevated. No obvious osteomyelitis per CT. Blood cultures and wound culture were obtained in the ED and patient was started on daptomycin and piperacillin/tazobactam which be continued. Consult ID and Wound Care. Patient has been seen by Orthopedics at [facility] and may prefer to go to [facility] if surgical intervention is necessary. Wound and blood cultures pending Evaluated by infectious disease and wound care services Recommend evaluation for possible left foot amputation given chronic, nonhealing diabetic foot ulcer despite antibiotic treatment for the past few months Discussed with patient, he requested for me to discuss his case with Dr. Edward, orthopedic doctor patient has been following [facility] Dr. Edward recommending evaluation for amputation [facility] Had a discussion with patient, and his , they would like to continue IV antibiotics for now, observe for possible improvement of the ulcer, and eventual follow-up with Dr. Edward scheduled on December 11, 2018 Discussed with him that the ulcer may or may not improve with IV antibiotics, and that he may eventually be transferred to [facility] for surgical intervention, and they are agreeable with this Also with trial of IV antibiotics, infection may worsen, spread including to his knees, and they are also understanding and accepting with this Continue Dapto and Zosyn at this time Discussed pain control with patient, recommend to reduce Dilaudid to 1.5 mg every 4 hours, and he is agreeable with this plan Continue usual oxycodone and OxyContin (2) Charcot foot due to diabetes mellitus: Nonweightbearing left foot. 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 Patient reports that blood sugars are well controlled at home. Check hemoglobin A1c. Hold metformin and glipizide during hospital stay. Lantus/NovoLog per protocol. (4) HTN (hypertension): Continue metoprolol. (5) ENRIQUE (obstructive sleep apnea): Patient prefers using his own CPAP equipment from home. (6) Morbid obesity due to excess calories: Weight 143 kg, BMI 48. Heart healthy/diabetic diet. (7) Chronic pain: Chronic pain secondary to neuropathy, arthropathy, back pain. Continue usual analgesics. (8) Diabetic peripheral neuropathy associated with type 2 diabetes mellitus: As noted above. (9) DVT prophylaxis: Increased risk for VTE due to decreased mobility and infection. Subcutaneous enoxaparin. (10) Discharge planning issues: Discharge disposition to be determined. Family Medicine follow-up with Dr. Bates. Subjective Follow-up for chronic left foot ulcer, diabetes, Charcot's foot Seen resting in bed, comfortable but seems to be anxious Reports continued pain in the left foot, relieved by analgesics Otherwise he feels improved compared to admission, flulike symptoms according to him have resolved Denies chest pain, shortness of breath, palpitations, dizziness No other symptoms Review of Systems Review of Systems: All systems reviewed & are unremarkable except as noted in HPI & below Physical Exam Physical Exam: General- oriented x 3, not in distress, speaks in sentences with no effort or accessory muscle use Eyes- anicteric Neck- no JVD Lungs- clear breath sounds bilaterally, no rales/wheezes Heart- normal rate, regular rhythm; no murmurs Abdomen- normal bowel sounds, nondistended, soft, nontender Extremities- no pretibial edema, no calf tenderness Left foot-around 4 cm ulcer noted on the plantar aspect, with surrounding edema, and tenderness No active bleeding or discharge noted Neuro- alert, oriented x 3; no gross focal neurologic deficits Skin- warm & dry Results & Data Vital Signs (Past 12 Hours) Vital Signs Temp Pulse Pulse Resp BP Pulse Ox 11/29/18 07:58 36.5 C 86 16 120/74 95 11/28/18 22:54 36.6 C 76 18 119/72 92 11/28/18 22:20 36.8 C 11/28/18 21:49 79 20 106/62 98 Laboratory Results Laboratory Results - last 24 hr 11/29/18 11/29/18 11/29/18 06:38 06:38 06:38 WBC 7.96 RBC 4.12 L Hgb 11.1 L Hct 34.9 L MCV 84.7 MCH 26.9 MCHC 31.8 L RDW Std Deviation 50.4 H RDW Coeff of Madelyn 16.2 H Plt Count 190 MPV 11.2 H Immature Gran % (Auto) 0.5 Neut % (Auto) 65.7 Lymph % (Auto) 20.1 [place] % (Auto) 10.4 Eos % (Auto) 3.0 Baso % (Auto) 0.3 Immature Gran # (Auto) 0.04 H Neut # (Auto) 5.23 Lymph # (Auto) 1.60 [place] # (Auto) 0.83 H Eos # (Auto) 0.24 Baso # (Auto) 0.02 PT INR Sodium 136 Potassium 3.9 Chloride 103 Carbon Dioxide 29 Anion Gap 4.0 BUN 16 D Creatinine 1.21 Est Cr Clr Drug Dosing 88.0 Est GFR ( Amer) 73.9 Est GFR (Non-Af Amer) 63.8 BUN/Creatinine Ratio 13.3 Glucose 98 POC Glucose Estimat Average Glucose 123 Hemoglobin A1c 5.9 H Calcium 8.8 11/29/18 11/29/18 11/29/18 06:38 07:52 11:58 WBC RBC Hgb Hct MCV MCH MCHC RDW Std Deviation RDW Coeff of Madelyn Plt Count MPV Immature Gran % (Auto) Neut % (Auto) Lymph % (Auto) [place] % (Auto) Eos % (Auto) Baso % (Auto) Immature Gran # (Auto) Neut # (Auto) Lymph # (Auto) [place] # (Auto) Eos # (Auto) Baso # (Auto) PT 11.6 INR 1.1 Sodium Potassium Chloride Carbon Dioxide Anion Gap BUN Creatinine Est Cr Clr Drug Dosing Est GFR ( Amer) Est GFR (Non-Af Amer) BUN/Creatinine Ratio Glucose POC Glucose 127 H 112 H Estimat Average Glucose Hemoglobin A1c Calcium 11/29/18 17:38 WBC RBC Hgb Hct MCV MCH MCHC RDW Std Deviation RDW Coeff of Madelyn Plt Count MPV Immature Gran % (Auto) Neut % (Auto) Lymph % (Auto) [place] % (Auto) Eos % (Auto) Baso % (Auto) Immature Gran # (Auto) Neut # (Auto) Lymph # (Auto) [place] # (Auto) Eos # (Auto) Baso # (Auto) PT INR Sodium Potassium Chloride Carbon Dioxide Anion Gap BUN Creatinine Est Cr Clr Drug Dosing Est GFR ( Amer) Est GFR (Non-Af Amer) BUN/Creatinine Ratio Glucose POC Glucose 91 Estimat Average Glucose Hemoglobin A1c Calcium (1) Diabetic ulcer of left foot Diabetes mellitus type: other specified (including HARIKA) Diabetic foot ulcer location: unspecified part of foot Non-pressure ulcer stage: unspecified non- pressure ulcer stage Qualified Code(s): E13.621 - Other specified diabetes mellitus with foot ulcer; L97.529 - Non-pressure chronic ulcer of other part of left foot with unspecified severity
[2018-11-29] MEDS ORDERED: GLUCOSE 40% GEL 15 GM TUBE PO PRN (10:00)
[2018-11-29] MEDS ORDERED: GLUCAGON FOR INJ 1 MG VIAL IM PRN (10:00)
[2018-11-29] MEDS ORDERED: DEXTROSE 50% 50 ML SYRINGE IV PRN (10:00)
[2018-11-29] MEDS ORDERED: CARBOHYDRATES FOR HYPOGLYCEMIA PO PRN (10:00)
[2018-11-29] MEDS ORDERED: GLUCOSE 10 TABS/TUBE PO PRN (10:00)
--- NOTE | 2018-11-29 11:13 | Infectious Disease Consult ---
Date of Consultation November 29, 2018 Assessment & Plan (1) Cellulitis of left foot excluding toes: Worsening left foot infection in setting of diabetic ulcer and Charcot foot. Pending cultures, daptomycin and Zosyn will provide adequate coverage. Await ortho evaluation. Will follow. (2) Diabetic foot ulcer associated with type 2 diabetes mellitus: History of Present Illness Reason for Consultation: diabetic foot ulcer Attending Physician: Michael Garza MD History of Present Illness 63-year-old male with history of diabetes mellitus with severe diabetic neuropathy, chronic Charcot changes of his feet, recurrent diabetic foot ulcers, who is being followed at the wound care center for nonhealing left foot ulcer. He is being followed at the wound care center and found to have positive cultures for Pseudomonas and Achromobacter and was being treated with a course of oral levofloxacin. However, over the past several days had noted progressively worsening ulceration with foul-smelling drainage associated with some fever and chills. Has been started empirically on daptomycin and Zosyn. Cultures are pending. Patient denies any significant pain in his foot. Allergies Allergy/AdvReac Type Severity Reaction Status Date / Time ketorolac Allergy Unknown BURNING Verified 11/28/18 10:13 SENSATION tramadol Allergy Unknown GI UPSET Verified 11/28/18 10:13 ciprofloxacin [From Cipro] AdvReac Intermediate upset Verified 11/28/18 10:13 stomach Home Medications Home Medications Medication Instructions Recorded Confirmed Type Lyrica 225 mg PO TID 04/21/18 11/28/18 History aspirin [Aspir-Low] 81 mg PO DAILY 04/21/18 11/28/18 History clonazepam [Klonopin] 0.25 mg PO BID PRN 04/21/18 11/28/18 History cyanocobalamin (vitamin B-12) 1,000 mcg PO DAILY 04/21/18 11/28/18 History [Vitamin B-12] losartan 100 mg PO DAILY 04/21/18 11/28/18 History ondansetron 4 mg PO TID PRN 04/21/18 11/28/18 History oxycodone [OxyContin] 10 mg PO Q12 04/21/18 11/28/18 History pantoprazole 40 mg PO BID 04/21/18 11/28/18 History sertraline [Zoloft] 50 mg PO DAILY 04/21/18 11/28/18 History metoprolol succinate 50 mg PO DAILY 11/28/18 11/28/18 History oxycodone 10 mg PO TID 11/28/18 11/28/18 History daptomycin 600 mg IV DAILY #1 ea 12/01/18 Rx enoxaparin 40 mg SUBCUT QAM 30 Days #12 ml 12/01/18 Rx insulin aspart U-100 [Novolog 1 units SC ACHS #15 ml 12/01/18 Rx Flexpen U-100 Insulin] piperacillin-tazobactam [Zosyn] 4.5 gm IV Q8H #10 ea 12/01/18 Rx Patient History Medical History DMII (diabetes mellitus, type 2) (Chronic) Chronic pain (Chronic) Multiple rib fractures involving four or more ribs (Resolved) OA (osteoarthritis) of knee (Chronic) GERD (gastroesophageal reflux disease) (Chronic) ENRIQUE (obstructive sleep apnea) (Chronic) Anxiety (Chronic) Depression (Chronic) Morbid obesity due to excess calories (Chronic) HTN (hypertension) (Chronic) Smoker (Chronic) Acquired claw toe of left foot (Acute) Callus (Acute) Charcot's joint of right foot (Acute) Charcot's joint, left ankle and foot (Acute) Chronic ulcer of left midfoot (Acute) Diabetes mellitus with diabetic polyneuropathy (Acute) Surgical History History of bilateral knee replacement (Chronic) H/O knee surgery (Chronic) S/P trigger finger release (Chronic) Family History Father Lung cancer Mother Hypertension Dementia Social History Preferred Language: Afghan Communication Ability: Effective 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 Required: No Beliefs That Will Affect Care: None marital status: Current Living Situation: Spouse Other Information That Helps Us Care for You: No Feels Safe at Home: Yes Smoking Status: Heavy tobacco smoker Tobacco Type: cigarettes Do You Dip or Chew Tobacco: No Second Hand Exposure: Yes Tobacco Cessation Education Requested by Patient: No Hx Alcohol Use: Yes Alcohol type: beer Hx Substance Use: No Review of Systems Review of Systems: All systems reviewed & are unremarkable except as noted in HPI & below Physical Exam Constitutional: WD/WN, vitals as above comfortable; no acute distress Eyes: PERRL, conjunctivae normal, anicteric sclerae ENMT: external ear and nose normal, oropharynx normal Neck: trachea midline, no thyromegaly neck nontender Respiratory: normal respiratory effort, lungs clear to auscultation normal percussion; does not use accessory muscles Cardiovascular: Rate/Rhythm: regular rate and regular rhythm Heart Sounds: normal S1 and normal S2; no gallop, no murmur and no cardiac rub Vessels: normal peripheral pulses; no JVD Gastrointestinal (Abdomen): normal bowel sounds, soft, nontender, no hepatosplenomegaly Musculoskeletal: no cyanosis or clubbing, extremities motor strength 5/5 Spine: thoracic spine normal to inspection and lumbar spine normal to inspection; no cervical spinal tenderness Skin: normal turgor and + ulcer (Left foot with smelling drainage) Neurologic: moves all extremities Motor/Sensory: + sensory deficit (Both feet) Psychiatric: A+Ox3, euthymic affect Orientation: cooperative Lymphatic: no cervical or axillary lymphadenopathy no inguinal lymphadenopathy Results & Data Vital Signs (Past 12 Hours) Vital Signs Temp Pulse Resp BP Pulse Ox 11/29/18 07:58 36.5 C 86 16 120/74 95 Laboratory Results Short CBC 11/28/18 11/29/18 Range/Units 17:07 06:38 WBC 10.35 7.96 (4.8-10.8) K/uL Hgb 11.2 L 11.1 L (14.0-18.0) g/dL Hct 34.7 L 34.9 L (42-52) % Plt Count 196 190 (130-400) K/uL BMP 11/28/18 11/29/18 17:07 06:38 Sodium 134 L 136 Potassium 3.9 3.9 Chloride 99 103 Carbon Dioxide 30 29 BUN 10 16 D Creatinine 0.95 1.21 Glucose 95 98 Calcium 9.2 8.8 Liver Function 11/28/18 Range/Units 17:07 Total Bilirubin 0.5 (0.2-1) mg/dl AST 19 (15-37) U/L ALT 19 (12-78) U/L Alkaline Phosphatase 130 H (45-117) U/L Albumin 3.0 L (3.4-5.0) gm/dl Diagnostic Findings Microbiology Name: MOOSE ANN Acct: [id number] Status: REG AMBR : 1955 [facility] – [place], [place] Date: 11/28/18 Age: 63 Sex: M Dis Date: Loc: Wound Care Center Spec: [id number] Collected: 11/20/18-UNK Received: 11/21/[address]: Madeline Oscar CRNP Source: Foot,Left OV Order: Ordered: Surf Wnd Cul/Sm Procedure Result Verified Site Gram Stain Final 11/21/18 Gram Stain Result Few WBCs Seen Rare Gram Positive Cocci Surface Wound Culture Final 11/25/18 Organism 1 Pseudomonas aeruginosa Quantity Few Sens Sensitivities to Follow +MixWound Plus Low Counts of Probable Skin Susanna Organism 2 Pseudomonas aeruginosa#2 Quantity Few Sens Sensitivities to Follow Organism 3 Achromobacter xylosox/denitrif Quantity Few Sens Sensitivities to Follow P aerugino P aerugino#2 Ac xyl/den RX M.I.C. RX M.I.C. RX M.I.C. --- --------- --- --------- --- --------- Amikacin R >32 S <=16 R >32 Aztreonam R >16 S <=4 R >16 Cefepime S 8 S 8 I 16 Cefotaxime R >32 Ceftazidime S 4 S 4 R >16 Ceftriaxone R >32 Ciprofloxacin S <=1 S <=1 I 2 Gentamicin R >8 I 8 R >8 Imipenem S 2 S <=1 S 2 Levofloxacin S <=2 S <=2 S <=2 Tobramycin R >8 S <=4 R >8 Trimeth/Sulfa S <=2/38 Pip/Tazo S <=16 S <=16 S <=16 S = SENSITIVE I = INTERMEDIATE R = RESISTANT Name: MOOSE ANN : 1955 PAGE 1 Printed: 11/29/18 1114 END OF REPORT 11/28/18 17:15 Foot Gram Stain - Final CT foot LT w con CLINICAL HISTORY: 63 years-old Male presenting with left foot ulcer, pus drain age. TECHNIQUE: Multidetector CT of the left foot was performed after the administration of intravenous contrast. IV contrast: 90 mL of Optiray 320. One or more dose lowering techniques were used consistent with the principles of ALARA (as low as reasonably achievable), including automatic exposure control, mA or kV adjustment to individual patient size, and/or use of iterative reconstruction. COMPARISON: MR from 04/21/2018. CT DOSE (mGy.cm): The estimated cumulative dose is 217.67 mGy.cm. FINDINGS: Commercial Property Manager topogram: Unremarkable. A soft tissue ulceration is evident, which results in erosion of the subcutaneous fat and diffuse infiltrative change. This has significantly worsened since the prior exam. The soft tissue ulceration measures approximately 4 cm in diameter. This appears to involve the subjacent plantar fascia with infiltrative changes deep to the plantar fascia. The degree of chronic Charcot joint of the midfoot and midfoot-forefoot articulations make assessment for osteomyelitis nearly impossible. Traversing vasculature along the plantar aspect of the foot appears grossly patent. There is no rim-enhancing fluid collection that is apparent. Diffuse subcutaneous edema in the foot. Diffuse fatty atrophy of musculature. Allowing for the degree of osseous dissolution and and disorganization in the mid foot no gross evidence of fracture. IMPRESSION: 1. Severe ulceration along the plantar aspect of the foot, which has traumatically increased from prior and involves the subjacent plantar fascia. No evidence of abscess. 2. The degree of severity of chronic Charcot joint of the mid foot and midfoot- forefoot articulations makes assessment on CT for osteomyelitis nearly impossible. Electronically signed by: Yvon Cortes M.D. 11/28/2018 7:28 PM Dictated: 11/28/181923 (1) Diabetic foot ulcer associated with type 2 diabetes mellitus Diabetic foot ulcer location: midfoot Laterality: left Non-pressure ulcer stage: with fat layer exposed Qualified Code(s): E11.621 - Type 2 diabetes mellitus with foot ulcer; L97.422 - Non-pressure chronic ulcer of left heel and midfoot with fat layer exposed
[2018-11-29] MEDS: PIPERACILLIN/TAZOBACTAM 4.5 GM in DEXTROSE 5% 100 ML IV SCH ×2 (11:35→19:57)
--- NOTE | 2018-11-29 16:20 | Wound Consultation ---
Date of Consultation November 29, 2018 Assessment & Plan (1) Diabetic ulcer of left foot: Patient well-known to the wound clinic with a diabetic Charcot foot and now secondary cellulitis. Patient has repeatedly asked for amputation of his foot seeking his life back. I think it is reasonable if patient is willing to do what is required to proceed with an amputation. He has been attempting conservative treatment for the last 2-1/2 months making little to no progress. Patient would like to have surgery done at [facility] where he is already seen Dr. Mc. Thank you for allowing to participate in the care of this patient. Please not hesitate to call with any questions. (2) Cellulitis of left foot excluding toes: History of Present Illness Attending Physician: Michael Garza MD Is a 63-year-old male with a history of type 2 diabetes with peripheral neuropathy and Charcot foot, hypertension, osteoarthritis status post bilateral knee replacement, GERD and morbid obesity who was admitted to the hospital with cellulitis and Charcot foot. Patient is being followed in the wound clinic and his last 2 visits he has requested amputation of the foot. He has seen Dr. Mc at [facility] and discussed this with him. Patient is currently on IV antibiotics. Allergies Allergy/AdvReac Type Severity Reaction Status Date / Time ketorolac Allergy Unknown BURNING Verified 11/28/18 10:13 SENSATION tramadol Allergy Unknown GI UPSET Verified 11/28/18 10:13 ciprofloxacin [From Cipro] AdvReac Intermediate upset Verified 11/28/18 10:13 stomach Home Medications Home Medications Medication Instructions Recorded Confirmed Type Lyrica 225 mg PO TID 04/21/18 11/28/18 History aspirin [Aspir-Low] 81 mg PO DAILY 04/21/18 11/28/18 History clonazepam [Klonopin] 0.25 mg PO BID PRN 04/21/18 11/28/18 History cyanocobalamin (vitamin B-12) 1,000 mcg PO DAILY 04/21/18 11/28/18 History [Vitamin B-12] glipizide 2.5 mg PO DAILY 04/21/18 11/28/18 History losartan 100 mg PO DAILY 04/21/18 11/28/18 History metformin 500 mg PO DAILY 04/21/18 11/28/18 History ondansetron 4 mg PO TID PRN 04/21/18 11/28/18 History oxycodone [OxyContin] 10 mg PO Q12 04/21/18 11/28/18 History pantoprazole 40 mg PO BID 04/21/18 11/28/18 History sertraline [Zoloft] 50 mg PO DAILY 04/21/18 11/28/18 History atorvastatin 20 mg tablet 20 mg PO DAILY 10/02/18 11/28/18 History levofloxacin 500 mg tablet 500 mg PO DAILY 10/27/18 11/28/18 History metoprolol succinate 50 mg PO DAILY 11/28/18 11/28/18 History oxycodone 10 mg PO TID 11/28/18 11/28/18 History Patient History Medical History DMII (diabetes mellitus, type 2) (Chronic) Chronic pain (Chronic) Multiple rib fractures involving four or more ribs (Resolved) OA (osteoarthritis) of knee (Chronic) GERD (gastroesophageal reflux disease) (Chronic) ENRIQUE (obstructive sleep apnea) (Chronic) Anxiety (Chronic) Depression (Chronic) Morbid obesity due to excess calories (Chronic) HTN (hypertension) (Chronic) Smoker (Chronic) Acquired claw toe of left foot (Acute) Callus (Acute) Charcot's joint of right foot (Acute) Charcot's joint, left ankle and foot (Acute) Chronic ulcer of left midfoot (Acute) Diabetes mellitus with diabetic polyneuropathy (Acute) Surgical History History of bilateral knee replacement (Chronic) H/O knee surgery (Chronic) S/P trigger finger release (Chronic) Family History Father Lung cancer Mother Hypertension Dementia Social History Preferred Language: [place] Islander Communication Ability: Effective Track Walker Required: No Beliefs That Will Affect Care: None marital status: Current Living Situation: Spouse Other Information That Helps Us Care for You: No Feels Safe at Home: Yes Smoking Status: Heavy tobacco smoker Tobacco Type: cigarettes Do You Dip or Chew Tobacco: No Second Hand Exposure: Yes Tobacco Cessation Education Requested by Patient: No Hx Alcohol Use: Yes Alcohol type: beer Hx Substance Use: No Review of Systems Review of Systems: All systems reviewed & are unremarkable except as noted in HPI & below Physical Exam Constitutional: WD/WN, vitals as above Eyes: PERRL, conjunctivae normal, anicteric sclerae Respiratory: normal respiratory effort, lungs clear to auscultation Cardiovascular: RRR, no murmur, no edema Gastrointestinal (Abdomen): normal bowel sounds, soft, nontender, no hepatosplenomegaly Skin: Wound measuring 3.2 x 3.2 x 1.6 cm. Wound is covered with slough and necrotic tissue. Periwound is callused. There is large amount of drainage. Neurologic: awake; not confused Psychiatric: A+Ox3, euthymic affect Results & Data Vital Signs (Past 12 Hours) Vital Signs Temp Pulse Resp BP Pulse Ox 11/29/18 07:58 36.5 C 86 16 120/74 95 (1) Diabetic ulcer of left foot Diabetes mellitus type: other specified (including AHRIKA) Diabetic foot ulcer location: unspecified part of foot Non-pressure ulcer stage: unspecified non-pressure ulcer stage Qualified Code(s): E13.621 - Other specified diabetes mellitus with foot ulcer; L97.529 - Non-pressure chronic ulcer of other part of left foot with unspecified severity
[2018-11-29] MEDS ORDERED: DAPTOmycin 500 MG VIAL IV SCH (18:00)
[2018-11-29] MEDS: DAPTOmycin 600 MG in SYRINGE 0 ML IV SCH (18:12)
[2018-11-30] MEDS: HYDROmorphone INJ 1 MG/ML SYRINGE IV PRN ×5 (01:56→22:25)
[2018-11-30] MEDS: PIPERACILLIN/TAZOBACTAM 4.5 GM in DEXTROSE 5% 100 ML IV SCH ×3 (03:38→21:24)
[2018-11-30] MEDS: OXYCODONE HCL IR 5 MG TAB (IMMEDIATE RELEASE) PO SCH ×3 (06:39→23:21)
[2018-11-30 08:01] LABS: Creatinine Clr Calc Pharmacy 126.8 ml/min; Est GFR (African American) 108.8; Est GFR (Non-African American) 93.8
[2018-11-30] MEDS: OXYCODONE HCL 10 MG TABCR (OXYCONTIN) PO SCH ×2 (08:40→21:27)
[2018-11-30] MEDS: PREGABALIN 75 MG CAP PO SCH ×3 (08:41→21:27)
[2018-11-30] MEDS: ENOXAPARIN INJ 40 MG/0.4 ML SYR SQ SCH (08:42)
[2018-11-30] MEDS: ASPIRIN 81 MG ECTAB PO SCH (08:42)
[2018-11-30] MEDS: LOSARTAN POTASSIUM 50 MG TAB PO SCH (08:43)
[2018-11-30] MEDS: PANTOprazole 40 MG TAB PO SCH ×2 (08:43→21:29)
[2018-11-30] MEDS: SERTRALINE HCL 50 MG TABLET PO SCH (08:43)
[2018-11-30] MEDS: CYANOCOBALAMIN 500 MCG TABLET (VITAMIN B-12) PO SCH (08:43)
[2018-11-30] MEDS: METOPROLOL SUCC 50MG EXT REL TAB PO SCH (08:43)
[2018-11-30] MEDS: INSULIN GLARGINE SOLOSTAR 100 UNITS/ML 3 ML PEN SC SCH ×2 (09:38→21:28)
[2018-11-30] MEDS: INSULIN ASPART 100 UNITS/ML 3 ML PEN SC SCH ×4 (09:40→21:29)
--- NOTE | 2018-11-30 15:48 | Wound Progress Note ---
Date of Service November 30, 2018 Assessment & Plan (1) Cellulitis of left foot excluding toes: Long conversation with patient about having amputation. This is a treatment the patient would like to pursue. He is looking to buy himself a few days we can get his affairs in order. Patient is agreeable to transfer on Tuesday as his will be off. Patient understands that wound may get better with IV antibiotics but can still get worse and the infection can spread. We will continue to follow while patient is inpatient. Thank you for allowing me to participate in the care of this patient. Please not hesitate to call with any questions. (2) Charcot's joint: Subjective Patient seen in follow-up of Charcot foot with underlying cellulitis. Patient was to be transferred to [facility] for evaluation for amputation but declined. He appears comfortable in bed on IV antibiotics. Review of Systems Review of Systems: All systems reviewed & are unremarkable except as noted in HPI & below Physical Exam Neurologic: awake; not confused Psychiatric: A+Ox3, euthymic affect Results & Data Vital Signs (Past 12 Hours) Vital Signs Temp Pulse Resp BP Pulse Ox 11/30/18 07:00 36.7 C 71 20 121/78 100
[2018-11-30] MEDS: DAPTOmycin 600 MG in SYRINGE 0 ML IV SCH (18:00)
--- NOTE | 2018-11-30 19:02 | Hospitalist Progress Note ---
Date of Service November 30, 2018 Assessment & Plan (1) Diabetic ulcer of left foot: Per admitting service notes Nonhealing diabetic foot ulcer left foot associated with Charcot deformity. Worsening ulcer despite debridements and several courses of antibiotics. Now with foul-smelling drainage, fever. Does not appear to be septic, but sedimentation rate and C-reactive protein are elevated. No obvious osteomyelitis per CT. Blood cultures and wound culture were obtained in the ED and patient was started on daptomycin and piperacillin/tazobactam which be continued. Consult ID and Wound Care. Patient has been seen by Orthopedics at [facility] and may [place] [facility] [place]. Wound culture: Staph aureus species Blood cultures: No growth to date Evaluated by infectious disease and wound care services Discussed case at length with patient again today He would like to be transferred to [facility] for evaluation of forefoot amputation tomorrow Continue Dapto and Zosyn at this time Discussed pain control with patient, will increase Dilaudid 1.5 mg every 3 hours as needed, per patient's request for better pain control Continue usual oxycodone and OxyContin Monitor closely, signed out to staff psychiatrist (2) Charcot foot due to diabetes mellitus: Nonweightbearing left foot. 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 Patient reports that blood sugars are well controlled at home. A1c 5.9 Hold metformin and glipizide during hospital stay. Lantus/NovoLog per protocol. (4) HTN (hypertension): Continue metoprolol. (5) ENRIQUE (obstructive sleep apnea): Patient prefers using his own CPAP equipment from home. (6) Morbid obesity due to excess calories: Weight 143 kg, BMI 48. Heart healthy/diabetic diet. (7) Chronic pain: Chronic pain secondary to neuropathy, arthropathy, back pain. Continue usual analgesics. (8) Diabetic peripheral neuropathy associated with type 2 diabetes mellitus: As noted above. (9) DVT prophylaxis: Increased risk for VTE due to decreased mobility and infection. Subcutaneous enoxaparin. (10) Discharge planning issues: Patient requested to be transferred to [facility] tomorrow Subjective Follow-up for left foot ulcer, chronic Seen sitting up in bed, comfortable Still having significant pain in the left foot Fevers or chills Denies chest pain, shortness of breath, palpitations, dizziness No other symptoms Review of Systems Review of Systems: All systems reviewed & are unremarkable except as noted in HPI & below Physical Exam Physical Exam: General- oriented x 3, not in distress, speaks in sentences with no effort or accessory muscle use Eyes- anicteric Neck- no JVD Lungs- clear breath sounds bilaterally Heart- normal rate, regular rhythm; no murmurs Abdomen- normal bowel sounds, nondistended, soft, nontender Extremities- no pretibial edema, no calf tenderness Left foot-4 cm ulcer, with significant edema, mild surrounding erythema and tenderness Neuro- alert, oriented x 3; no gross focal neurologic deficits Skin- warm & dry Results & Data Vital Signs (Past 12 Hours) Vital Signs Temp Pulse Resp BP Pulse Ox 11/30/18 16:32 36.5 C 63 20 117/74 99 11/30/18 07:00 36.7 C 71 20 121/78 100 Laboratory Results Laboratory Results - last 24 hr 11/29/18 11/30/18 11/30/18 21:23 07:06 08:21 Creatinine 0.84 D Est Cr Clr Drug Dosing 126.8 Est GFR ( Amer) 108.8 Est GFR (Non-Af Amer) 93.8 POC Glucose 109 H 72 11/30/18 11/30/18 12:20 17:17 Creatinine Est Cr Clr Drug Dosing Est GFR ( Amer) Est GFR (Non-Af Amer) POC Glucose 144 H 95 (1) Diabetic ulcer of left foot Diabetes mellitus type: other specified (including HARIKA) Diabetic foot ulcer location: unspecified part of foot Non-pressure ulcer stage: unspecified non- pressure ulcer stage Qualified Code(s): E13.621 - Other specified diabetes mellitus with foot ulcer; L97.529 - Non-pressure chronic ulcer of other part of left foot with unspecified severity
--- NOTE | 2018-11-30 20:56 | Infectious Disease Progress Nt ---
Date of Service November 30, 2018 Assessment & Plan (1) Cellulitis of left foot excluding toes: Worsening left foot infection in setting of diabetic ulcer and Charcot foot. Pending cultures, daptomycin and Zosyn will provide adequate coverage. Likely to be transferred to [facility] for BK amputation. (2) Diabetic foot ulcer associated with type 2 diabetes mellitus: Subjective Patient seen in follow-up for left foot infection. Now agreeing to amputation, likely transfer to [facility]. Remains afebrile, no new complaints. Review of Systems Review of Systems: All systems reviewed & are unremarkable except as noted in HPI & below Physical Exam Constitutional: WD/WN, vitals as above comfortable; no acute distress Eyes: PERRL, conjunctivae normal, anicteric sclerae ENMT: external ear and nose normal, oropharynx normal Neck: trachea midline, no thyromegaly neck nontender Respiratory: normal respiratory effort, lungs clear to auscultation normal percussion; no respiratory distress Cardiovascular: Rate/Rhythm: regular rate and regular rhythm Heart Sounds: normal S1 and normal S2; no gallop, no murmur and no cardiac rub Gastrointestinal (Abdomen): normal bowel sounds, soft, nontender, no hepatosplenomegaly Musculoskeletal: no cyanosis or clubbing, extremities motor strength 5/5 No spinal tenderness, no joint swelling or erythema Skin: + rash and + lesion (Foot wound appears essentially the same, no purulence at present) Neurologic: moves all extremities and awake; no focal motor deficits Motor/Sensory: no sensory deficit Psychiatric: A+Ox3, euthymic affect Lymphatic: no cervical or axillary lymphadenopathy no inguinal lymphadenopathy Results & Data Vital Signs (Past 12 Hours) Vital Signs Temp Pulse Resp BP Pulse Ox 11/30/18 16:32 36.5 C 63 20 117/74 99 Laboratory Results [facility] 11/30/18 07:06 Creatinine 0.84 D Diagnostic Findings Microbiology 11/28/18 17:50 Blood Aerobic Blood Culture - Preliminary No growth in Aerobic bottle after 48 hours. 11/28/18 17:50 Blood Anaerobic Blood Culture - Preliminary No growth in Anaerobic bottle after 48 hours. 11/28/18 17:07 Blood Aerobic Blood Culture - Preliminary No growth in Aerobic bottle after 48 hours. 11/28/18 17:07 Blood Anaerobic Blood Culture - Preliminary No growth in Anaerobic bottle after 48 hours. 11/28/18 17:15 Foot Gram Stain - Final 11/28/18 17:15 Foot Wound Culture - Preliminary Staphylococcus species Alpha strep. not enterococcus (1) Diabetic foot ulcer associated with type 2 diabetes mellitus Diabetic foot ulcer location: midfoot Laterality: left Non-pressure ulcer stage: with fat layer exposed Qualified Code(s): E11.621 - Type 2 diabetes mellitus with foot ulcer; L97.422 - Non-pressure chronic ulcer of left heel and midfoot with fat layer exposed
[2018-12-01] MEDS: HYDROmorphone INJ 1 MG/ML SYRINGE IV PRN ×5 (01:25→13:53)
[2018-12-01] MEDS: PIPERACILLIN/TAZOBACTAM 4.5 GM in DEXTROSE 5% 100 ML IV SCH ×2 (04:23→12:38)
[2018-12-01] MEDS: OXYCODONE HCL IR 5 MG TAB (IMMEDIATE RELEASE) PO SCH ×2 (06:05→13:44)
[2018-12-01 08:15] LABS: Creatinine Clr Calc Pharmacy 133.1 ml/min; Est GFR (Non-African American) 95.7
--- NOTE | 2018-12-01 09:06 | Hospitalist Progress Note ---
Date of Service December 01, 2018 Assessment & Plan (1) Diabetic ulcer of left foot: Per admitting service notes Nonhealing diabetic foot ulcer left foot associated with Charcot deformity. Worsening ulcer despite debridements and several courses of antibiotics. Now with foul-smelling drainage, fever. Does not appear to be septic, but sedimentation rate and C-reactive protein are elevated. No obvious osteomyelitis per CT. Wound culture: Staph aureus species, identification pending Blood cultures: No growth to date Evaluated by infectious disease and wound care services Discussed case at length with patient He would like to be transferred to [facility] for evaluation of foot amputation, patient has been seen Dr. Edward in the past Discussed case with Dr. Edward Transfer to [facility] Continue Dapto and Zosyn On PRN Dilaudid 1.5 mg every 3 hours Continue usual oxycodone and OxyContin (2) Charcot foot due to diabetes mellitus: Nonweightbearing left foot. 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 Patient reports that blood sugars are well controlled at home. A1c 5.9 Hold metformin and glipizide during hospital stay. Lantus/NovoLog per protocol. (4) HTN (hypertension): Stable Continue metoprolol. (5) ENRIQUE (obstructive sleep apnea): Patient prefers using his own CPAP equipment from home. (6) Morbid obesity due to excess calories: Weight 143 kg, BMI 48. Heart healthy/diabetic diet. (7) Chronic pain: Chronic pain secondary to neuropathy, arthropathy, back pain. Continue usual analgesics. (8) Diabetic peripheral neuropathy associated with type 2 diabetes mellitus: As noted above. (9) DVT prophylaxis: Increased risk for VTE due to decreased mobility and infection. Subcutaneous enoxaparin. (10) Discharge planning issues: Transfer to [facility] Subjective Follow-up for chronic diabetic foot ulcer next Seen resting in bed, not in distress Still having significant pain on the left foot, relieved by pain medications Denies fevers or chills, nausea vomiting, chest pain, shortness of breath Denies other symptoms Review of Systems Review of Systems: All systems reviewed & are unremarkable except as noted in HPI & below Physical Exam Physical Exam: General- oriented x 3, not in distress, speaks in sentences with no effort or accessory muscle use Eyes- anicteric Neck- no JVD Lungs- clear breath sounds bilaterally Heart- normal rate, regular rhythm; no murmurs Abdomen- normal bowel sounds, nondistended, soft, nontender Extremities- no pretibial edema, no calf tenderness Left foot-dressing in place with minimal serosanguineous drainage Significant edema Neuro- alert, oriented x 3; no gross focal neurologic deficits Skin- warm & dry Results & Data Vital Signs (Past 12 Hours) Vital Signs Temp Pulse Pulse Resp BP Pulse Ox 12/01/18 08:00 36.8 C 78 18 132/76 97 11/30/18 23:05 37.0 C 72 16 120/74 97 Laboratory Results Comprehensive Metabolic Panel 12/01/18 Range/Units 07:18 Creatinine 0.80 (0.6-1.4) mg/dl Intake and Output 11/30/18 12/01/18 12/01/18 22:59 06:59 14:59 Intake Total 720 / 1225 120 / 1225 120 / 120 Balance 720 / 1225 120 / 1225 120 / 120 Intake: IV 120 / 360 120 / 360 120 / 120 Zosyn 4.5 gm In D5 100 ml @ 30 120 / 360 120 / 360 120 / 120 mls/hr IV Q8H [facility] Rx#:[id number] Oral 600 / 865 (1) Diabetic ulcer of left foot Diabetes mellitus type: other specified (including HARIKA) Diabetic foot ulcer location: unspecified part of foot Non-pressure ulcer stage: unspecified non- pressure ulcer stage Qualified Code(s): E13.621 - Other specified diabetes mellitus with foot ulcer; L97.529 - Non-pressure chronic ulcer of other part of left foot with unspecified severity
--- NOTE | 2018-12-01 09:15 | Discharge Summary ---
Date of Service December 01, 2018 Admission HPI Per Admitting Provider 63-year-old male with history of diabetes mellitus type 2, Charcot deformity of left foot, and chronic ulcer of left foot. He has been followed by Infectious Disease as well as [facility]'s wound care clinic locally. He has also been seen in consultation by Orthopedics at [facility]. The foot ulcer was noted several months ago. He has undergone several courses of antibiotic therapy and multiple debridements. Has been taking levofloxacin for past several weeks. Nevertheless, the ulcer has not healed and recently has been draining foul- smelling fluid. He has noted intermittent fevers. Experiencing severe pain in the left foot, currently managed with oxycodone extended release and oxycodone immediate release. Admission Exam Per Admitting Provider Constitutional: WD/WN, vitals as above + obese; no acute distress Eyes: PERRL, conjunctivae normal, anicteric sclerae ENMT: external ear and nose normal, oropharynx normal Neck: trachea midline, no thyromegaly Respiratory: normal respiratory effort, lungs clear to auscultation Cardiovascular: Rate/Rhythm: regular rate Heart Sounds: no gallop, no murmur and no cardiac rub Vessels: no JVD Extremities: normal capillary refill; no calf tenderness and no edema pedal pulses diminished Gastrointestinal (Abdomen): normal bowel sounds, soft, nontender, no hepatosplenomegaly Musculoskeletal: Head/Neck/Chest: neck supple Extremities: strength 5/5 throughout; no cyanosis and no clubbing Charcot deformity left foot ulcer plantar surface left foot measuring approximately 3 x 4 cm, no drainage, mild surrounding erythema Skin: no rashes, warm and dry Neurologic: PERRL, EOMI no facial palsy no dysarthria or aphasia patellar DTR's 2/2 bilat Psychiatric: Orientation: alert and oriented x 3 Affect: euthymic affect Lymphatic: no cervical lymphadenopathy Principal Diagnosis DIABETIC FOOT ULCER, LEFT, CHARCOT'S FOOT Discharge Exam General- oriented x 3, not in distress, speaks in sentences with no effort or accessory muscle use Eyes- anicteric Neck- no JVD Lungs- clear breath sounds bilaterally Heart- normal rate, regular rhythm; no murmurs Abdomen- normal bowel sounds, nondistended, soft, nontender Extremities- no pretibial edema, no calf tenderness Left foot-dressing in place with minimal serosanguineous drainage Significant edema Neuro- alert, oriented x 3; no gross focal neurologic deficits Skin- warm & dry Discharge Data Allergies Allergy/AdvReac Type Severity Reaction Status Date / Time ketorolac Allergy Unknown BURNING Verified 11/28/18 10:13 SENSATION tramadol Allergy Unknown GI UPSET Verified 11/28/18 10:13 ciprofloxacin [From Cipro] AdvReac Intermediate upset Verified 11/28/18 10:13 stomach Consultations 11/28/18 20:39 ED Decision to Admit Stat 11/29/18 04:42 Consult Infectious Diseases Routine Consult Wound Care Provider Routine Ordered Studies 11/28/18 17:13 CT foot LT w con Stat CT foot LT w con CLINICAL HISTORY: 63 years-old Male presenting with left foot ulcer, pus drainage. TECHNIQUE: Multidetector CT of the left foot was performed after the administration of intravenous contrast. IV contrast: 90 mL of Optiray 320. One or more dose lowering techniques were used consistent with the principles of ALARA (as low as reasonably achievable), including automatic exposure control, mA or kV adjustment to individual patient size, and/or use of iterative reconstruction. COMPARISON: MR from 04/21/2018. CT DOSE (mGy.cm): The estimated cumulative dose is 217.67 mGy.cm. FINDINGS: Paper Finisher topogram: Unremarkable. A soft tissue ulceration is evident, which results in erosion of the subcutaneous fat and diffuse infiltrative change. This has significantly worsened since the prior exam. The soft tissue ulceration measures approximately 4 cm in diameter. This appears to involve the subjacent plantar fascia with infiltrative changes deep to the plantar fascia. The degree of chronic Charcot joint of the midfoot and midfoot-forefoot articulations make assessment for osteomyelitis nearly impossible. Traversing vasculature along the plantar aspect of the foot appears grossly patent. There is no rim-enhancing fluid collection that is apparent. Diffuse subcutaneous edema in the foot. Diffuse fatty atrophy of musculature. Allowing for the degree of osseous dissolution and and disorganization in the mid foot no gross evidence of fracture. IMPRESSION: 1. Severe ulceration along the plantar aspect of the foot, which has traumatically increased from prior and involves the subjacent plantar fascia. No evidence of abscess. 2. The degree of severity of chronic Charcot joint of the mid foot and midfoot- forefoot articulations makes assessment on CT for osteomyelitis nearly impossible. Hospital Course (1) Diabetic ulcer of left foot: Per admitting service notes Nonhealing diabetic foot ulcer left foot associated with Charcot deformity. Worsening ulcer despite debridements and several courses of antibiotics. Now with foul-smelling drainage, fever. Does not appear to be septic, but sedimentation rate and C-reactive protein are elevated. No obvious osteomyelitis per CT. Wound culture: Staph aureus species, identification pending Blood cultures: No growth to date Evaluated by infectious disease and wound care services Discussed case at length with patient He would like to be transferred to [facility] for evaluation of foot amputation, patient has been seen Dr. Edward in the past Discussed case with Dr. Edward Transfer to [facility] Continue Dapto and Zosyn On PRN Dilaudid 1.5 mg every 3 hours Continue usual oxycodone and OxyContin (2) Charcot foot due to diabetes mellitus: Nonweightbearing left foot. 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 Patient reports that blood sugars are well controlled at home. A1c 5.9 Hold metformin and glipizide during hospital stay. Lantus/NovoLog per protocol. (4) HTN (hypertension): Stable Continue metoprolol. (5) ENRIQUE (obstructive sleep apnea): Patient prefers using his own CPAP equipment from home. (6) Morbid obesity due to excess calories: Weight 143 kg, BMI 48. Heart healthy/diabetic diet. (7) Chronic pain: Chronic pain secondary to neuropathy, arthropathy, back pain. Continue usual analgesics. (8) Diabetic peripheral neuropathy associated with type 2 diabetes mellitus: As noted above. (9) DVT prophylaxis: Increased risk for VTE due to decreased mobility and infection. Subcutaneous enoxaparin. (10) Discharge planning issues: Transfer to [facility] Total Time Total Time Spent Total Time Spent (In Minutes): 50 minutes Discharge Plan Discharge Items Patient Disposition: Transfer Acute Care Hospital Reason For Visit: DIABETIC FOOT ULCER Discharge Diagnosis: DIABETIC FOOT ULCER, CHARCOT'S FOOT Discharge Goals: Diagnostic testing and Therapeutic intervention Activity: As commented below Activity Comment: Nonweightbearing left foot Non-emergency contact: Primary Care Provider and Surgeon Call non-emergency contact if: you have any medication questions, your symptoms worsen, your pain is not controlled, you have a fever, your wound has increased redness, your wound has increased drainage and your wound pain has increased Follow-up/Referrals: Karlie Bates, DO [Primary Care Provider] - Diet: Carb Consistent or DM2, Heart Healthy and Low Fat Addtl Provider Instructions: Please refer to accompanying hospital discharge summary for further details. Prescriptions: New enoxaparin 40 mg/0.4 mL Syringe 40 mg subcut QAM 30 Days Qty: 12 RF: 0 Novolog Flexpen U-100 Insulin 100 unit/mL (3 mL) Insulin Pen 1 units SC ACHS Qty: 15 RF: 0 Continued atorvastatin 20 mg tablet 20 mg PO DAILY RF: 0 clonazepam [Klonopin] 0.5 mg tablet 0.25 mg PO BID PRN (Reason: Anxiety) RF: 0 cyanocobalamin (vitamin B-12) [Vitamin B-12] 1,000 mcg Tablet 1,000 mcg PO DAILY RF: 0 aspirin [Aspir-Low] 81 mg Tablet,Delayed Release (Dr/Ec) 81 mg PO DAILY RF: 0 pantoprazole 40 mg Tablet,Delayed Release (Dr/Ec) 40 mg PO BID RF: 0 ondansetron 4 mg Tablet,Disintegrating 4 mg PO TID PRN (Reason: Nausea) RF: 0 losartan 100 mg Tablet 100 mg PO DAILY RF: 0 sertraline [Zoloft] 50 mg tablet 50 mg PO DAILY RF: 0 Lyrica 225 mg capsule 225 mg PO TID RF: 0 oxycodone [OxyContin] 10 mg Tablet,Oral Only,Ext.Rel.12 Hr 10 mg PO Q12 RF: 0 oxycodone 5 mg tablet 10 mg PO TID RF: 0 metoprolol succinate 50 mg Tablet Extended Release 24 Hr 50 mg PO DAILY RF: 0 Discontinued levofloxacin [Levaquin] 500 mg tablet 500 mg PO DAILY RF: 0 glipizide 2.5 mg Tablet Extended Release 24hr 2.5 mg PO DAILY RF: 0 metformin 500 mg Tablet Extended Release 24hr 500 mg PO DAILY RF: 0 Stand-Alone Forms: [facility] Admission Data Admit Date/Time: 11/28/18 21:36 Attending Provider: Michael Garza Admit Provider: Enrique Grimaldo Primary Care Provider: Karlie Bates Other Providers: Enrique Grimaldo ; Lorin Francis ; Rickey Fernandez Service: Medical
[2018-12-01] MEDS: ASPIRIN 81 MG ECTAB PO SCH (09:51)
[2018-12-01] MEDS: METOPROLOL SUCC 50MG EXT REL TAB PO SCH (09:51)
[2018-12-01] MEDS: OXYCODONE HCL 10 MG TABCR (OXYCONTIN) PO SCH (09:51)
[2018-12-01] MEDS: SERTRALINE HCL 50 MG TABLET PO SCH (09:51)
[2018-12-01] MEDS: PREGABALIN 75 MG CAP PO SCH ×2 (09:51→13:45)
[2018-12-01] MEDS: PANTOprazole 40 MG TAB PO SCH (09:52)
[2018-12-01] MEDS: LOSARTAN POTASSIUM 50 MG TAB PO SCH (09:52)
[2018-12-01] MEDS: CYANOCOBALAMIN 500 MCG TABLET (VITAMIN B-12) PO SCH (09:54)
[2018-12-01] MEDS: INSULIN ASPART 100 UNITS/ML 3 ML PEN SC SCH ×2 (09:57→13:34)
[2018-12-01] MEDS: INSULIN GLARGINE SOLOSTAR 100 UNITS/ML 3 ML PEN SC SCH (09:59)
[2018-12-01] MEDS: ENOXAPARIN INJ 40 MG/0.4 ML SYR SQ SCH (10:00)
== END 2018-12-01 14:14 | disposition short-term general hospital (02) | DRG 638 ==
LOC: ED 14:49 → 3N 21:36

== ENCOUNTER 2019-08-03 06:45 | Observation (INO) ==
[2019-08-03] MEDS ORDERED: ONDANSETRON INJ 2 MG/ML 2 ML VIAL IV STA (06:51)
[2019-08-03] MEDS ORDERED: ACETAMINOPHEN 1,000 MG/100 ML VIAL IV STA (06:51)
--- NOTE | 2019-08-03 06:57 | Emergency Department Note ---
History of Present Illness General Chief complaint: Vomiting Stated complaint: Nausea, vomiting Time Seen by Provider: 08/03/19 06:47 Source: patient, EMS, RN notes reviewed and old records reviewed Mode of arrival: EMS Limitations: no limitations History of Present Illness Provider complaint: Abd pain Onset (ago): day(s) 8 Location: abdomen Radiation: non-radiation Severity: severe and similar to prior episodes Pain Consistency: + colicky Maximum Pain Intensity: 10 Current Pain Intensity: 10 Quality: + aching Relieved By: + none Exacerbated By: + none Associated symptoms: + nausea/vomiting Treatments prior to arrival: none This is a 63-year-old male who presents emergency department after not having a bowel movement for 8 days. The patient reports he is also vomiting and is unable to keep any of his home medications down. He reports having fallen out of his wheelchair after falling asleep and it 2 weeks ago. Patient reports he has had similar episodes like this however has never needed surgery and that the episodes normally resolve. He is on chronic narcotics. He is reporting severe abdominal pain along with vomiting. He has never had abdominal surgery previously still has his appendix and his gallbladder. Home Medications Home Medications Medication Instructions Recorded Confirmed Type aspirin [Aspir-Low] 81 mg PO DAILY 04/21/18 08/03/19 History clonazepam [Klonopin] 0.25 mg PO BID PRN 04/21/18 08/03/19 History losartan 100 mg PO DAILY 04/21/18 08/03/19 History oxycodone [OxyContin] 10 mg PO Q12 04/21/18 08/03/19 History pantoprazole 40 mg PO BID 04/21/18 08/03/19 History pregabalin [Lyrica] 225 mg PO TID 04/21/18 08/03/19 History sertraline [Zoloft] 50 mg PO DAILY 04/21/18 08/03/19 History metoprolol succinate 50 mg PO DAILY 11/28/18 08/03/19 History oxycodone 10 mg PO TID 11/28/18 08/03/19 History oxycodone 5 - 10 mg PO Q6H PRN #18 tab 08/03/19 Rx Allergies Allergy/AdvReac Type Severity Reaction Status Date / Time ketorolac Allergy Unknown BURNING Verified 11/28/18 10:13 SENSATION tramadol Allergy Unknown GI UPSET Verified 11/28/18 10:13 ciprofloxacin [From Cipro] AdvReac Intermediate upset Verified 11/28/18 10:13 stomach Past Med/Surg History Medical History Acquired claw toe of left foot (Acute) Anxiety (Chronic) Callus (Acute) Charcot's joint of right foot (Acute) Charcot's joint, left ankle and foot (Acute) Chronic pain (Chronic) Chronic ulcer of left midfoot (Acute) Depression (Chronic) Diabetes mellitus with diabetic polyneuropathy (Acute) DMII (diabetes mellitus, type 2) (Chronic) GERD (gastroesophageal reflux disease) (Chronic) HTN (hypertension) (Chronic) Morbid obesity due to excess calories (Chronic) Multiple rib fractures involving four or more ribs (Resolved) OA (osteoarthritis) of knee (Chronic) ENRIQUE (obstructive sleep apnea) (Chronic) Smoker (Chronic) Surgical History H/O knee surgery (Chronic) History of bilateral knee replacement (Chronic) S/P trigger finger release (Chronic) Family History Father Lung cancer Mother Hypertension Dementia Social History Preferred Language: [place] Communication Ability: Effective Communication Ability Comment: before conscious sedation Machine Staker Required: No Beliefs That Will Affect Care: None marital status: Current Living Situation: Spouse Other Information That Helps Us Care for You: No Feels Safe at Home: Yes Safety Concerns: Feels Safe At This Time Smoking Status: Current every day smoker Tobacco Type: cigarettes ; Cigarettes Per Day: 20 ; Do You Dip or Chew Tobacco: No ; Second Hand Exposure: No ; Tobacco Cessation Education Requested by Patient: No Hx Alcohol Use: Yes Alcohol type: beer Hx Substance Use: Yes substance use type: opiates and prescription drug Last Used Substance: Unknown Review of Systems A total of 10 systems reviewed and were otherwise negative Physical Exam Vital Signs Vital Signs - 24 hr 08/03/19 06:55 08/03/19 07:00 08/03/19 07:30 Temperature 36.5 C Temperature Source Oral Pulse Rate 85 77 81 Pulse Rate [Right Finger] Pulse Rate from SpO2 Sensor Pulse Rhythm [Right Finger] Pulse Strength [Right Finger] Respiratory Rate 21 15 14 Respiratory Effort / Characteristics Respiratory Depth Normal Respiratory Pattern Blood Pressure 136/91 137/81 Blood Pressure [Right Arm] Blood Pressure Mean 106 89 Blood Pressure Mean [Right Arm] Blood Pressure Position [Right Arm] Pulse Oximetry 97 95 Oxygen Delivery Method Room Air Oxygen Flow Rate Sepsis Recent Fever Within 48 Hours No Sepsis New/Unexplained Change in Mental Status No Sepsis Action Taken by Nursing No Action Required End-Tidal CO2 08/03/19 07:40 08/03/19 07:50 08/03/19 08:00 Temperature Temperature Source Pulse Rate 74 72 73 Pulse Rate [Right Finger] Pulse Rate from SpO2 Sensor Pulse Rhythm [Right Finger] Pulse Strength [Right Finger] Respiratory Rate 21 16 19 Respiratory Effort / Characteristics Respiratory Depth Respiratory Pattern Blood Pressure Blood Pressure [Right Arm] Blood Pressure Mean Blood Pressure Mean [Right Arm] Blood Pressure Position [Right Arm] Pulse Oximetry Oxygen Delivery Method Oxygen Flow Rate Sepsis Recent Fever Within 48 Hours Sepsis New/Unexplained Change in Mental Status Sepsis Action Taken by Nursing End-Tidal CO2 08/03/19 08:10 08/03/19 08:20 08/03/19 08:37 Temperature Temperature Source Pulse Rate 76 75 Pulse Rate [Right Finger] 81 Pulse Rate from SpO2 Sensor Pulse Rhythm [Right Finger] Pulse Strength [Right Finger] Respiratory Rate 18 12 20 Respiratory Effort / Characteristics Non-Labored Spontaneous Respiratory Depth Normal Respiratory Pattern Regular Blood Pressure Blood Pressure [Right Arm] 145/77 H Blood Pressure Mean Blood Pressure Mean [Right Arm] 99 Blood Pressure Position [Right Arm] Lying Pulse Oximetry 96 Oxygen Delivery Method Room Air Oxygen Flow Rate Sepsis Recent Fever Within 48 Hours Sepsis New/Unexplained Change in Mental Status Sepsis Action Taken by Nursing End-Tidal CO2 08/03/19 08:38 08/03/19 08:40 08/03/19 08:48 Temperature Temperature Source Pulse Rate 73 78 79 Pulse Rate [Right Finger] Pulse Rate from SpO2 Sensor 79 Pulse Rhythm [Right Finger] Pulse Strength [Right Finger] Respiratory Rate 16 13 18 Respiratory Effort / Characteristics Respiratory Depth Respiratory Pattern Blood Pressure 145/77 H 140/75 Blood Pressure [Right Arm] Blood Pressure Mean 95 83 Blood Pressure Mean [Right Arm] Blood Pressure Position [Right Arm] Pulse Oximetry 96 Oxygen Delivery Method Oxygen Flow Rate Sepsis Recent Fever Within 48 Hours Sepsis New/Unexplained Change in Mental Status Sepsis Action Taken by Nursing End-Tidal CO2 08/03/19 08:50 08/03/19 08:55 08/03/19 08:57 Temperature Temperature Source Pulse Rate 82 84 74 Pulse Rate [Right Finger] Pulse Rate from SpO2 Sensor 83 84 Pulse Rhythm [Right Finger] Pulse Strength [Right Finger] Respiratory Rate 14 16 16 Respiratory Effort / Characteristics Non-Labored Spontaneous Respiratory Depth Normal Respiratory Pattern Regular Blood Pressure 125/74 122/94 Blood Pressure [Right Arm] 145/77 H Blood Pressure Mean 88 103 Blood Pressure Mean [Right Arm] Blood Pressure Position [Right Arm] Pulse Oximetry 98 99 98 Oxygen Delivery Method Room Air Nasal Cannula Nasal Cannula Oxygen Flow Rate 2 2 Sepsis Recent Fever Within 48 Hours Sepsis New/Unexplained Change in Mental Status Sepsis Action Taken by Nursing End-Tidal CO2 44 08/03/19 09:00 08/03/19 09:06 08/03/19 09:10 Temperature Temperature Source Pulse Rate 76 89 84 Pulse Rate [Right Finger] Pulse Rate from SpO2 Sensor 77 85 Pulse Rhythm [Right Finger] Pulse Strength [Right Finger] Respiratory Rate 16 14 12 Respiratory Effort / Characteristics Respiratory Depth Respiratory Pattern Blood Pressure 115/61 115/58 L 102/80 Blood Pressure [Right Arm] Blood Pressure Mean 75 83 91 Blood Pressure Mean [Right Arm] Blood Pressure Position [Right Arm] Pulse Oximetry 99 93 Oxygen Delivery Method Nasal Cannula Nasal Cannula Nasal Cannula Oxygen Flow Rate 2 2 2 Sepsis Recent Fever Within 48 Hours Sepsis New/Unexplained Change in Mental Status Sepsis Action Taken by Nursing End-Tidal CO2 44 42 40 08/03/19 09:12 08/03/19 09:15 08/03/19 09:20 Temperature Temperature Source Pulse Rate 84 87 80 Pulse Rate [Right Finger] Pulse Rate from SpO2 Sensor 83 87 80 Pulse Rhythm [Right Finger] Pulse Strength [Right Finger] Respiratory Rate 14 11 L 12 Respiratory Effort / Characteristics Respiratory Depth Respiratory Pattern Blood Pressure 119/96 117/70 111/64 Blood Pressure [Right Arm] Blood Pressure Mean 110 79 74 Blood Pressure Mean [Right Arm] Blood Pressure Position [Right Arm] Pulse Oximetry 94 99 97 Oxygen Delivery Method Nasal Cannula Nasal Cannula Nasal Cannula Oxygen Flow Rate 2 2 2 Sepsis Recent Fever Within 48 Hours Sepsis New/Unexplained Change in Mental Status Sepsis Action Taken by Nursing End-Tidal CO2 28 38 19 08/03/19 09:25 08/03/19 09:30 08/03/19 09:35 Temperature Temperature Source Pulse Rate 81 79 83 Pulse Rate [Right Finger] Pulse Rate from SpO2 Sensor 81 78 82 Pulse Rhythm [Right Finger] Pulse Strength [Right Finger] Respiratory Rate 11 L 12 12 Respiratory Effort / Characteristics Respiratory Depth Respiratory Pattern Blood Pressure 113/77 102/70 111/78 Blood Pressure [Right Arm] Blood Pressure Mean 83 83 82 Blood Pressure Mean [Right Arm] Blood Pressure Position [Right Arm] Pulse Oximetry 95 97 98 Oxygen Delivery Method Nasal Cannula Nasal Cannula Nasal Cannula Oxygen Flow Rate 2 2 2 Sepsis Recent Fever Within 48 Hours Sepsis New/Unexplained Change in Mental Status Sepsis Action Taken by Nursing End-Tidal CO2 36 27 08/03/19 09:40 08/03/19 09:45 08/03/19 09:50 Temperature Temperature Source Pulse Rate 80 79 78 Pulse Rate [Right Finger] Pulse Rate from SpO2 Sensor 80 81 79 Pulse Rhythm [Right Finger] Pulse Strength [Right Finger] Respiratory Rate 14 14 Respiratory Effort / Characteristics Respiratory Depth Respiratory Pattern Blood Pressure 111/69 126/68 130/102 H Blood Pressure [Right Arm] Blood Pressure Mean 72 92 108 Blood Pressure Mean [Right Arm] Blood Pressure Position [Right Arm] Pulse Oximetry 98 92 95 Oxygen Delivery Method Nasal Cannula Nasal Cannula Nasal Cannula Oxygen Flow Rate 2 2 Sepsis Recent Fever Within 48 Hours Sepsis New/Unexplained Change in Mental Status Sepsis Action Taken by Nursing End-Tidal CO2 15 18 15 08/03/19 09:55 08/03/19 09:57 08/03/19 10:00 Temperature Temperature Source Pulse Rate 78 83 78 Pulse Rate [Right Finger] Pulse Rate from SpO2 Sensor 79 83 78 Pulse Rhythm [Right Finger] Pulse Strength [Right Finger] Respiratory Rate 15 11 L Respiratory Effort / Characteristics Respiratory Depth Respiratory Pattern Blood Pressure 129/100 140/72 124/72 Blood Pressure [Right Arm] Blood Pressure Mean 114 85 83 Blood Pressure Mean [Right Arm] Blood Pressure Position [Right Arm] Pulse Oximetry 99 98 99 Oxygen Delivery Method Nasal Cannula Nasal Cannula Nasal Cannula Oxygen Flow Rate Sepsis Recent Fever Within 48 Hours Sepsis New/Unexplained Change in Mental Status Sepsis Action Taken by Nursing End-Tidal CO2 28 42 35 08/03/19 10:05 08/03/19 10:08 08/03/19 10:10 Temperature Temperature Source Pulse Rate 88 74 81 Pulse Rate [Right Finger] Pulse Rate from SpO2 Sensor 88 76 80 Pulse Rhythm [Right Finger] Pulse Strength [Right Finger] Respiratory Rate 13 14 Respiratory Effort / Characteristics Respiratory Depth Respiratory Pattern Blood Pressure 149/130 H 117/72 110/65 Blood Pressure [Right Arm] Blood Pressure Mean 136 77 69 Blood Pressure Mean [Right Arm] Blood Pressure Position [Right Arm] Pulse Oximetry 99 99 98 Oxygen Delivery Method Nasal Cannula Nasal Cannula Oxygen Flow Rate Sepsis Recent Fever Within 48 Hours Sepsis New/Unexplained Change in Mental Status Sepsis Action Taken by Nursing End-Tidal CO2 10 19 36 08/03/19 10:15 08/03/19 10:20 08/03/19 10:25 Temperature Temperature Source Pulse Rate 80 73 73 Pulse Rate [Right Finger] Pulse Rate from SpO2 Sensor 82 73 72 Pulse Rhythm [Right Finger] Pulse Strength [Right Finger] Respiratory Rate 14 12 Respiratory Effort / Characteristics Respiratory Depth Respiratory Pattern Blood Pressure 102/64 117/58 L 113/63 Blood Pressure [Right Arm] Blood Pressure Mean 68 90 71 Blood Pressure Mean [Right Arm] Blood Pressure Position [Right Arm] Pulse Oximetry 97 94 95 Oxygen Delivery Method Nasal Cannula Nasal Cannula Nasal Cannula Oxygen Flow Rate 2 2 2 Sepsis Recent Fever Within 48 Hours Sepsis New/Unexplained Change in Mental Status Sepsis Action Taken by Nursing End-Tidal CO2 08/03/19 10:30 08/03/19 10:35 08/03/19 10:40 Temperature Temperature Source Pulse Rate 71 75 76 Pulse Rate [Right Finger] Pulse Rate from SpO2 Sensor 72 75 76 Pulse Rhythm [Right Finger] Pulse Strength [Right Finger] Respiratory Rate 14 13 Respiratory Effort / Characteristics Respiratory Depth Respiratory Pattern Blood Pressure 118/64 115/81 124/65 Blood Pressure [Right Arm] Blood Pressure Mean 75 95 77 Blood Pressure Mean [Right Arm] Blood Pressure Position [Right Arm] Pulse Oximetry 96 96 97 Oxygen Delivery Method Nasal Cannula Nasal Cannula Nasal Cannula Oxygen Flow Rate 2 2 Sepsis Recent Fever Within 48 Hours Sepsis New/Unexplained Change in Mental Status Sepsis Action Taken by Nursing End-Tidal CO2 08/03/19 11:46 Temperature 36.5 C Temperature Source Oral Pulse Rate 75 Pulse Rate [Right Finger] 82 Pulse Rate from SpO2 Sensor Pulse Rhythm [Right Finger] Regular Pulse Strength [Right Finger] Normal Respiratory Rate 16 Respiratory Effort / Characteristics Non-Labored Spontaneous Respiratory Depth Normal Respiratory Pattern Regular Blood Pressure 95/57 L Blood Pressure [Right Arm] 116/68 Blood Pressure Mean Blood Pressure Mean [Right Arm] 84 Blood Pressure Position [Right Arm] Sitting Pulse Oximetry 98 Oxygen Delivery Method Room Air Oxygen Flow Rate Sepsis Recent Fever Within 48 Hours Sepsis New/Unexplained Change in Mental Status Sepsis Action Taken by Nursing End-Tidal CO2 GENERAL: Patient is a healthy-appearing well-nourished male HEAD: Normocephalic atraumatic EYES: Ocular movements intact pupils equal and react to light OROPHARYNX mucous membranes are moist no exudates present no erythema or edema present NECK: Supple no nuchal rigidity CHEST: Good equal expansion LUNGS: Clear and equal to auscultation CARDIAC: Normal S1 and S2 ABDOMEN: Soft distended, Circumferential 6"x2" rash to umbilicus, diffuse pain throughout abdomen, + guarding BACK: No CVA tenderness EXTREMITIES: No pain upon palpation normal muscle strength in all groups no clubbing cyanosis or edema NEURO: Patient is following commands is answering questions appropriately. Alert and oriented x3 Cranial Nerves 2-12 grossly intact Procedures Free Text Procedures An umbilical hernia was reduced by myself in the Emergency department. Pt was placed in [facility] and ice was applied. The hernia was reduced with firm pressure. Pt tolerated the procedure well. Procedural Sedation Indication: other (NG/OG placement; I performed the procedure; Total time: 10 minutes) ASA Class: II Preparation: cardiac cath technologist applied, pulse oximeter, capnometry used, supplemental O2 applied, reversal agents at bedside, suction/airway equipment at bedside and IV secured Fentanyl: IV (300 mcg) Midazolam: IV (6 mg) Dosage Used (mgs): 2 Patient Tolerated Procedure: well Complications: none Additional Comments: OG placed by Basilia Dejesus Course Administered Medications Hydromorphone HCl (Dilaudid) 1 mg IV Q15M PRN PRN Reason: Pain Stop: 08/17/19 06:50 Last Admin: 08/03/19 08:01 Dose: 1 mg Documented by: [id number] Admin: 08/03/19 07:04 Dose: 1 mg Documented by: [id number] Ioversol (Optiray 320 125ml) 119 ml IV ONCE PRN PRN Reason: Interaction Checking Stop: 08/07/19 07:16 Last Admin: 08/03/19 07:18 Dose: 119 ml Documented by: [id number] Discontinued Medications Bupivacaine HCl (Marcaine 0.5% Mpf) Confirm Administered Dose 30 ml .ROUTE .STK- MED ONE Stop: 08/03/19 11:21 Last Admin: 08/03/19 13:22 Dose: 30 ml Documented by: [id number] Bupivacaine Liposome (Exparel) Confirm Administered Dose 266 mg .ROUTE .STK-MED ONE Stop: 08/03/19 11:21 Last Admin: 08/03/19 13:22 Dose: 266 mg Documented by: [id number] Fentanyl Citrate (Fentanyl Citrate) Confirm Administered Dose 100 mcg .ROUTE .STK-MED ONE Stop: 08/03/19 08:47 Last Admin: 08/03/19 09:32 Dose: 100 mcg Documented by: [id number] Fentanyl Citrate (Fentanyl Citrate) 100 mcg IV NOW STA Stop: 08/03/19 08:51 Last Admin: 08/03/19 09:33 Dose: 100 mcg Documented by: [id number] Fentanyl Citrate (Fentanyl Citrate) 100 mcg IV NOW STA Stop: 08/03/19 09:10 Last Admin: 08/03/19 09:35 Dose: Not Given Documented by: [id number] Fentanyl Citrate (Fentanyl Citrate) 100 mcg IV NOW STA Stop: 08/03/19 09:10 Last Admin: 08/03/19 09:35 Dose: Not Given Documented by: [id number] Fentanyl Citrate (Fentanyl Citrate) 300 mcg IV NOW STA Stop: 08/03/19 09:18 Last Admin: 08/03/19 09:35 Dose: Not Given Documented by: [id number] Sodium Chloride (Nss 1000ml) 1,000 mls @ 999 mls/hr IV .Q1H1M TAMIKO Stop: 08/03/19 08:00 Last Infusion: 08/03/19 08:13 Dose: 0 mls/hr Documented by: [id number] Admin: 08/03/19 07:04 Dose: 999 mls/hr Documented by: [id number] Acetaminophen (Ofirmev) 1,000 mg in 100 mls @ 400 mls/hr IV NOW STA Stop: 08/03/19 07:05 Last Infusion: 08/03/19 07:33 Dose: 0 mls/hr Documented by: [id number] Admin: 08/03/19 07:05 Dose: 400 mls/hr Documented by: [id number] Cefazolin Sodium (Ancef 3000mg) 72.5 mls @ 130 mls/hr IV ONCE ONE Stop: 08/03/19 13:33 Last Admin: 08/03/19 12:37 Dose: 130 mls/hr Documented by: [id number] Midazolam HCl (Versed) Confirm Administered Dose 2 mg .ROUTE .STK-MED ONE Stop: 08/03/19 08:46 Last Admin: 08/03/19 09:32 Dose: 2 mg Documented by: [id number] Midazolam HCl (Versed) 4 mg IV NOW STA Stop: 08/03/19 08:51 Last Admin: 08/03/19 09:33 Dose: Not Given Documented by: [id number] Midazolam HCl (Versed) Confirm Administered Dose 2 mg .ROUTE .STK-MED ONE Stop: 08/03/19 08:57 Last Admin: 08/03/19 09:33 Dose: 2 mg Documented by: [id number] Midazolam HCl (Versed) Confirm Administered Dose 2 mg .ROUTE .STK-MED ONE Stop: 08/03/19 09:04 Last Admin: 08/03/19 09:34 Dose: 2 mg Documented by: [id number] Midazolam HCl (Versed) Confirm Administered Dose 2 mg .ROUTE .STK-MED ONE Stop: 08/03/19 09:06 Last Admin: 08/03/19 09:34 Dose: Not Given Documented by: [id number] Midazolam HCl (Versed) 2 mg IV NOW STA Stop: 08/03/19 09:09 Last Admin: 08/03/19 09:35 Dose: Not Given Documented by: [id number] Midazolam HCl (Versed) 2 mg IV NOW STA Stop: 08/03/19 09:10 Last Admin: 08/03/19 09:35 Dose: Not Given Documented by: [id number] Midazolam HCl (Versed) 2 mg IV NOW STA Stop: 08/03/19 09:10 Last Admin: 08/03/19 09:35 Dose: Not Given Documented by: [id number] Midazolam HCl (Versed) 4 mg IV NOW STA Stop: 08/03/19 09:18 Last Admin: 08/03/19 09:36 Dose: Not Given Documented by: [id number] Ondansetron HCl (Zofran) 4 mg IV NOW STA Stop: 08/03/19 06:52 Last Admin: 08/03/19 07:05 Dose: 4 mg Documented by: [id number] Critical Care Time I have personally spent greater than 30 minutes of critical care time in the direct management of this patient. This includes bedside care, interpretation of diagnostic studies, and testing, discussion with consultants, patient, and family members, and other required patient management activities. This 30 minutes is in excess of all separately billable procedures. Medical Decision Making Differential Diagnosis Appendicitis, testicular torsion, infections, diverticulitis, UTI, obstruction, mesenteric ischemia, aortic pathology, inflammatory bowel disease, renal colic, PUD, pancreatitis, biliary pathology, hernia, volvulus, constipation, as well as other pathologies. Medical Records Attestation: I reviewed the patient's medical records. Home Medications Current Medication List: was personally reviewed by me Laboratory Data Attestation: I reviewed the patient's lab results. Result diagrams: 08/03/19 06:55 08/03/19 06:55 Lab Results 08/03/19 08/03/19 08/03/19 Range/Units 06:55 06:55 07:00 WBC 14.77 H (4.8-10.8) K/uL RBC 5.09 (4.7-6.1) M/uL Hgb 14.9 (14.0-18.0) g/dL POC Hgb 15.6 (14.0-18.0) g/dl Hct 44.1 (42-52) % POC Hct 46 (42-52) % MCV 86.6 (80-100) fL MCH 29.3 (25-34) pg MCHC 33.8 (32-36) g/dL RDW Std Deviation 44.0 (36.4-46.3) fL RDW Coeff of Madelyn 13.9 (11.5-14.5) % Plt Count 249 (130-400) K/uL MPV 11.7 H (7.4-10.4) fL Immature Gran % (Auto) 0.4 % Neut % (Auto) 85.1 % Lymph % (Auto) 7.5 % [place] % (Auto) 6.4 % Eos % (Auto) 0.5 % Baso % (Auto) 0.1 % Immature Gran # (Auto) 0.06 H (0.00-0.02) K/uL Neut # (Auto) 12.58 H (1.4-6.5) K/uL Lymph # (Auto) 1.11 L (1.2-3.4) K/uL [place] # (Auto) 0.94 H (0.11-0.59) K/uL Eos # (Auto) 0.07 (0-0.5) K/uL Baso # (Auto) 0.01 (0-0.2) K/uL POC Sodium 132 L (135-144) mmol/L Sodium 131 L (136-145) mmol/L POC Potassium 3.9 (3.3-5.0) mmol/L Potassium 3.9 (3.5-5.1) mmol/L POC Chloride 96 L (101-112) mmol/L Chloride 98 (98-107) mmol/L Carbon Dioxide 26 (21-32) mmol/L POC Total CO2 26 (24-31) mEq/l Anion Gap 7.0 (3-11) POC Anion Gap 15.0 L (16-25) mmol/L POC BUN 17 (7-18) mg/dl BUN 18 (7-18) mg/dl Creatinine 0.94 (0.6-1.4) mg/dl POC Creatinine 0.8 (0.6-1.3) mg/dl Est Cr Clr Drug Dosing 113.2 ml/min Est GFR ( Amer) 100.3 Est GFR (Non-Af Amer) 86.5 BUN/Creatinine Ratio 18.7 (10-20) Glucose 173 H (70-99) mg/dl POC Glucose (70-99) mg/dl POC Glucose (other) 176 H (70-99) mg/dl Lactate (0.4-2.0) mmol/L Calcium 9.4 (8.5-10.1) mg/dl POC Ioniz Calcium Taniya 1.10 L (1.12-1.32) mmol/l Total Bilirubin 1.2 H (0.2-1) mg/dl AST 23 (15-37) U/L ALT 33 (12-78) U/L Alkaline Phosphatase 138 H (45-117) U/L Total Protein 7.7 (6.4-8.2) gm/dl Albumin 3.1 L (3.4-5.0) gm/dl Globulin 4.6 H (2.5-4.0) gm/dl Albumin/Globulin Ratio 0.7 L (0.9-2) Lipase 64 L (73-393) U/L Urine Color Urine Appearance (Clear) Urine pH (4.5-7.5) Ur Specific [place] (1.000-1.030) Urine Protein (Negative) Urine Glucose (UA) (Negative) Urine Ketones (Negative) Urine Blood (Negative) Urine Nitrite (Negative) Urine Bilirubin (Negative) Urine Urobilinogen (Negative) Ur Leukocyte Esterase (Negative) 08/03/19 08/03/19 08/03/19 Range/Units 08:40 11:01 11:55 WBC (4.8-10.8) K/uL RBC (4.7-6.1) M/uL Hgb (14.0-18.0) g/dL POC Hgb (14.0-18.0) g/dl Hct (42-52) % POC Hct (42-52) % MCV (80-100) fL MCH (25-34) pg MCHC (32-36) g/dL RDW Std Deviation (36.4-46.3) fL RDW Coeff of Madelyn (11.5-14.5) % Plt Count (130-400) K/uL MPV (7.4-10.4) fL Immature Gran % (Auto) % Neut % (Auto) % Lymph % (Auto) % [place] % (Auto) % Eos % (Auto) % Baso % (Auto) % Immature Gran # (Auto) (0.00-0.02) K/uL Neut # (Auto) (1.4-6.5) K/uL Lymph # (Auto) (1.2-3.4) K/uL [place] # (Auto) (0.11-0.59) K/uL Eos # (Auto) (0-0.5) K/uL Baso # (Auto) (0-0.2) K/uL POC Sodium (135-144) mmol/L Sodium (136-145) mmol/L POC Potassium (3.3-5.0) mmol/L Potassium (3.5-5.1) mmol/L POC Chloride (101-112) mmol/L Chloride (98-107) mmol/L Carbon Dioxide (21-32) mmol/L POC Total CO2 (24-31) mEq/l Anion Gap (3-11) POC Anion Gap (16-25) mmol/L POC BUN (7-18) mg/dl BUN (7-18) mg/dl Creatinine (0.6-1.4) mg/dl POC Creatinine (0.6-1.3) mg/dl Est Cr Clr Drug Dosing ml/min Est GFR ( Amer) Est GFR (Non-Af Amer) BUN/Creatinine Ratio (10-20) Glucose (70-99) mg/dl POC Glucose 115 H (70-99) mg/dl POC Glucose (other) (70-99) mg/dl Lactate 1.0 (0.4-2.0) mmol/L Calcium (8.5-10.1) mg/dl POC Ioniz Calcium Taniya (1.12-1.32) mmol/l Total Bilirubin (0.2-1) mg/dl AST (15-37) U/L ALT (12-78) U/L Alkaline Phosphatase (45-117) U/L Total Protein (6.4-8.2) gm/dl Albumin (3.4-5.0) gm/dl Globulin (2.5-4.0) gm/dl Albumin/Globulin Ratio (0.9-2) Lipase (73-393) U/L Urine Color Dark Yellow Urine Appearance Clear (Clear) Urine pH 5.0 (4.5-7.5) Ur Specific [place] > 1.045 H (1.000-1.030) Urine Protein Negative (Negative) Urine Glucose (UA) Negative (Negative) Urine Ketones Negative (Negative) Urine Blood Negative (Negative) Urine Nitrite Negative (Negative) Urine Bilirubin 1+ H (Negative) Urine Urobilinogen Negative (Negative) Ur Leukocyte Esterase Negative (Negative) Imaging Data Radiologist's Impression: Patient: MOOSE ANN AZdmit Date: 08/03/19 MR#: [id number]: [address] Acct ID:[id number]: Date: 1955[facility] Zip: [place] [address] Age: 63Location: ED Sex: M Room/Bed: Att Phy:Diagnosis: Nausea, vomiting Sarah Phy: Karlie Bates DOService Date: 08/03/19 Fam Phy:Interpreting Phy: Jordan Bojorquez MD Admit Phy: Ordering Phy: Elton Velazquez MD cc: ~ ADDENDUM IMPRESSION:: 1. Findings consistent with small bowel obstruction proximally due to a small incarcerated section of small bowel within a small periumbilical hernia. 2. Hepatic cirrhosis with abdominal and pelvic ascites considered mild. 3. The initial report stating a normal impression is incorrect. The initial body of the report with findings is correct. Electronically signed by: Jordan Bojorquez M.D. 08/03/2019 8:[address] abd pelvis IV con only CT DOSE: 1770.90 mGy.cm HISTORY: Pain Pt c/o diffuse abd pain TECHNIQUE: Multiaxial CT images of the abdomen and pelvis were performed following the use of intravenous contrast. A dose lowering technique was utilized adhering to the principles of ALARA. COMPARISON STUDY: 10/31/2016 lung bases are clear. Findings of hepatic cirrhosis. Mild abdominal as well as pelvic ascites. Pancreas is unremarkable. Gallbladder is negative for distention. Normal adrenal glands. The kidneys enhance uniformly. No evidence for renal hydronephrosis. Fluid-filled moderate distention of the proximal to mid small bowel. This appears to be related to a small periumbilical hernia with a small section of small bowel containment. There is a distinct change in caliber with the small bowel proximal to this site showing distention with a relatively collapsed distally. The colonic pattern is considered nonobstructive. Bladder is midline. There is mild free fluid within the pelvic cul-de-sac. FINDINGS: 1. Small periumbilical hernia containing a short segment of small bowel. 2. This appears to be creating proximal small bowel obstructive change 3. Hepatic cirrhosis with mild abdominal and pelvic ascites. IMPRESSION: No significant abnormality identified within the abdomen or pelvis. ACT 112: Negative or not required by law. The above report was generated using voice recognition software. It may contain grammatical, syntax or spelling errors. Electronically signed by: Jordan Bojorquez M.D. 08/03/2019 8:40 AM [place], [place] [phone] XRay Report Patient: MOOSE ANN WAdmit Date: 08/03/19 MR#: [id number]: [address] Acct ID:[id number]: Date: [address] Zip: [place] [address] Age: 63Location: ED Sex: M Room/Bed: Att Phy:Diagnosis: Nausea, vomiting Sarah Phy: Keiter, Ziegler DOService Date: 08/03/19 [facility] Phy:Interpreting Phy: Jordan Bojorquez MD Admit Phy: Ordering Phy: Elton Velazquez MD cc: ~ XR KUB/Abdomen 1 view CLINICAL HISTORY: OG Tube Placement tube position COMPARISON STUDY: No previous studies for comparison. FINDINGS: Small bowel distention similar to the CT study. Nasogastric tube placed in the gastric fundus. IMPRESSION: Nasogastric tube placed in the gastric fundus. Proximal small bowel obstruction. ACT 112: Negative or not required by law. The above report was generated using voice recognition software. It may contain grammatical, syntax or spelling errors. Electronically signed by: Jordan Bojorquez M.D. 08/03/2019 9:25 AM Dictated: 08/03/19923 Transcribed: 08/03/19923 Blood Pressure Blood Pressure Findings: Elevated blood pressure Blood Pressure Disposition: elevated BP felt to be situational MDM Narrative This is a 63-year-old male who presents emergency department complaining of abdominal pain. The patient has not been able to keep anything down for 8 days. On my physical examination the patient has a hernia to the umbilicus. CAT scan confirms small bowel obstruction with hernia. The patient would not tolerate an NG tube and is requesting sedation for the OG tube. For this reason the patient was sedated as above. OG tube was placed by Basilia Dejesus. After sedation I was able to reduce the umbilical hernia. I did discuss the case with the surgeon on-call who was kind enough to come and see the patient and is going to take the patient to the operating room. The patient does have an elevation his white blood cell count 14,000. He was given Dilaudid for his pain. Repeat examination revealed improvement the patient's symptoms. "Cardiac monitoring: An order was placed for continuous cardiac monitoring. The monitor shows a rate of 80 with NS rhythm." Impression & Plan Abdominal pain, SBO (small bowel obstruction), Incarcerated hernia Discharge Plan Visit Data *Final* Discharge Date/Time: 08/03/19 11:46 Chief Complaint: Vomiting Stated Complaint: Nausea, vomiting ED Provider: Elton Velazquez Discharge Problem: Abdominal pain, SBO (small bowel obstruction), Incarcerated hernia Patient Disposition: Still a Patient Discharge Instructions Interventions: ED Discharge Assessment Last Done: 08/03/19 11:46 Discharge Problem: Abdominal pain Qualifiers: Abdominal location: unspecified location Qualified Code(s): R10.9 - Unspecified abdominal pain
[2019-08-03] MEDS ORDERED: SODIUM CHLORIDE 0.9% 1000ML 1,000 ML IV SCH (07:00)
[2019-08-03] MEDS: HYDROmorphone INJ 1 MG/ML SYRINGE IV PRN ×2 (07:04→08:01)
[2019-08-03 07:06] LABS: Basophils # (auto) 0.01 K/uL (0-0.2); Basophils % (auto) 0.1 %; Eosinophils # (auto) 0.07 K/uL (0-0.5); Eosinophils % (auto) 0.5 %; Hematocrit (blood only) 44.1 % (42-52); Hemoglobin 14.9 g/dL (14.0-18.0); Immature Granulocytes # (auto) 0.06 K/uL (0.00-0.02); Immature Granulocytes % (auto) 0.4 %; Lymphocytes # (auto) 1.11 K/uL (1.2-3.4); Lymphocytes % (auto) 7.5 %; Mean Corpuscular Hemoglobin 29.3 pg (25-34); Mean Corpuscular Hgb Conc 33.8 g/dL (32-36); Mean Corpuscular Volume 86.6 fL (80-100); Mean Platelet Volume 11.7 fL (7.4-10.4); Monocytes # (auto) 0.94 K/uL (0.11-0.59); Monocytes % (auto) 6.4 %; Neutrophils # (auto) 12.58 K/uL (1.4-6.5); Neutrophils % (auto) 85.1 %; Platelet Count 249 K/uL (130-400); RDW Coefficient of Variation 13.9 % (11.5-14.5); Red Blood Count 5.09 M/uL (4.7-6.1); White Blood Count 14.77 K/uL (4.8-10.8)
[2019-08-03 07:12] LABS: iSTAT Creatinine 0.8 mg/dl (0.6-1.3); iSTAT Hemoglobin 15.6 g/dl (14.0-18.0); iSTAT Ionized Calcium 1.1 mmol/l (1.12-1.32); iSTAT Potassium 3.9 mmol/L (3.3-5.0)
[2019-08-03] MEDS ORDERED: OPTIRAY 320 125ml IV PRN (07:17)
[2019-08-03 07:25] LABS: Albumin Level 3.1 gm/dl (3.4-5.0); BUN Creatinine Ratio 18.7 (10-20); Calcium 9.4 mg/dl (8.5-10.1); Creatinine Clr Calc Pharmacy 113.2 ml/min; Est GFR (African American) 100.3; Est GFR (Non-African American) 86.5; Potassium 3.9 mmol/L (3.5-5.1)
[2019-08-03 07:28] LABS: Albumin Globulin Ratio 0.7 (0.9-2); Bilirubin,Total 1.2 mg/dl (0.2-1); Globulin 4.6 gm/dl (2.5-4.0); Total Protein 7.7 gm/dl (6.4-8.2)
--- NOTE | 2019-08-03 08:41 | CT Scan Report ---
CT abd pelvis IV con only CT DOSE: 1770.90 mGy.cm HISTORY: Pain Pt c/o diffuse abd pain TECHNIQUE: Multiaxial CT images of the abdomen and pelvis were performed following the use of intrave nous contrast. A dose lowering technique was utilized adhering to the principles of ALARA. COMPARISON STUDY: 10/31/2016 lung bases are clear. Findings of hepatic cirrhosis. Mild abdominal as we ll as pelvic ascites. Pancreas is unremarkable. Gallbladder is negative for distention. Normal adrenal glands. The kidneys enhance uniformly. No evidence for renal hydronephrosis. Fluid-filled moderate distention of the proximal to mid small bowel. This appears to be related to a small periumbilical hernia with a small section of small bowel containment. There is a distinct valentin e in caliber with the small bowel proximal to this site showing distention with a relatively collapse d distally. The colonic pattern is considered nonobstructive. Bladder is midline. There is mild free fluid within the pelvic cul-de-sac. FINDINGS: 1. Small periumbilical hernia containing a short segment of small bowel. 2. This appears to be creating proximal small bowel obstructive change 3. Hepatic cirrhosis with mild abdominal and pelvic ascites. IMPRESSION: No significant abnormality identified within the abdomen or pelvis. ACT 112: Negative or not required by law. The above report was generated using voice recognition software. It may contain grammatical, syntax or spelling errors. Electronically signed by: Jordan Bojorquez M.D. 08/03/2019 8:40 AM
[2019-08-03] MEDS ORDERED: MIDAZOLAM HCL 1 MG/ML 2ML VIAL ONE ×5 (08:45→10:56)
[2019-08-03] MEDS ORDERED: fentaNYL citrate 100 MCG/2 ML VIAL ONE ×3 (08:46→13:49)
[2019-08-03] MEDS ORDERED: fentaNYL citrate 100 MCG/2 ML VIAL IV STA ×4 (08:50→09:17)
[2019-08-03] MEDS ORDERED: MIDAZOLAM HCL 5 MG/ML 1 ML VIAL IV STA ×5 (08:50→09:17)
[2019-08-03 09:05] LABS: Appearance Urine Clear (Clear); Blood Urine Negative (Negative); Color Urine Dark Yellow; Glucose Urine UA Negative (Negative); Ketones Urine Negative (Negative); Leukocyte Esterase Urine Negative (Negative); Nitrite Urine Negative (Negative); Protein Urine Negative (Negative); Specific Gravity Urine > 1.045 (1.000-1.030); Urobilinogen Urine Negative (Negative)
[2019-08-03 09:09] LABS: Bilirubin Urine 1+ (Negative)
[2019-08-03 09:25] LABS: Ictotest Urine Positive (Negative)
--- NOTE | 2019-08-03 09:26 | XRay Report ---
XR KUB/Abdomen 1 view CLINICAL HISTORY: OG Tube Placement tube position COMPARISON STUDY: No previous studies for comparison. FINDINGS: Small bowel distention similar to the CT study. Nasogastric tube placed in the gastric fund us. IMPRESSION: Nasogastric tube placed in the gastric fundus. Proximal small bowel obstruction. ACT 112: Negative or not required by law. The above report was generated using voice recognition software. It may contain grammatical, syntax or spelling errors. Electronically signed by: Jordan Bojorquez M.D. 08/03/2019 9:25 AM
--- NOTE | 2019-08-03 10:01 | Pre Anesthesia Assessment ---
Date of Service August 03, 2019 Pre Sedation Assessment Vital Signs Temp Pulse Pulse Resp BP BP Pulse Ox 08/03/19 09:45 79 126/68 92 08/03/19 09:40 80 14 111/69 98 08/03/19 09:35 83 12 111/78 98 08/03/19 09:30 79 12 102/70 97 08/03/19 09:25 81 11 L 113/77 95 08/03/19 09:20 80 12 111/64 97 08/03/19 09:15 87 11 L 117/70 99 08/03/19 09:12 84 14 119/96 94 08/03/19 09:10 84 12 102/80 93 08/03/19 09:06 89 14 115/58 L 08/03/19 09:00 76 16 115/61 99 08/03/19 08:57 74 16 145/77 H 98 08/03/19 08:55 84 16 122/94 99 08/03/19 08:50 82 14 125/74 98 08/03/19 08:48 79 18 140/75 96 08/03/19 08:40 78 13 08/03/19 08:38 73 16 145/77 H 08/03/19 08:37 81 20 145/77 H 96 08/03/19 08:20 75 12 08/03/19 08:10 76 18 08/03/19 08:00 73 19 08/03/19 07:50 72 16 08/03/19 07:40 74 21 08/03/19 07:30 81 14 08/03/19 07:00 77 15 137/81 95 08/03/19 06:55 36.5 C 85 21 136/91 97 Pre-Sedation Airway Assessment Smoking Status: Current every day smoker Hx Sleep Apnea: No Short, Thick Neck: No Thyromental Distance: > or= 3.5 Finger Breadths Oral Cavity: + WNL Mallampati Class: I ASA: ASA1 NPO Status Date of Last Intake of Fluids: 08/03/19 Time of Last Intake of Fluids: 04:00 Date of Last Intake of Solid Food: 08/02/19 Time of Last Intake of Solid Foods: 20:00 Notes The planned sedation has been discussed with the patient. Informed Consent was obtained. I have identified the patient, determined the appropriateness of sedation and have assessed the patient immediately prior to the procedure. All medicine(s) and interventions are by my order.
--- NOTE | 2019-08-03 10:02 | Emergency Department Note ---
Post Sedation Assessment Vital Signs Temp Pulse Pulse Resp BP BP Pulse Ox 08/03/19 09:45 79 126/68 92 08/03/19 09:40 80 14 111/69 98 08/03/19 09:35 83 12 111/78 98 08/03/19 09:30 79 12 102/70 97 08/03/19 09:25 81 11 L 113/77 95 08/03/19 09:20 80 12 111/64 97 08/03/19 09:15 87 11 L 117/70 99 08/03/19 09:12 84 14 119/96 94 08/03/19 09:10 84 12 102/80 93 08/03/19 09:06 89 14 115/58 L 08/03/19 09:00 76 16 115/61 99 08/03/19 08:57 74 16 145/77 H 98 08/03/19 08:55 84 16 122/94 99 08/03/19 08:50 82 14 125/74 98 08/03/19 08:48 79 18 140/75 96 08/03/19 08:40 78 13 08/03/19 08:38 73 16 145/77 H 08/03/19 08:37 81 20 145/77 H 96 08/03/19 08:20 75 12 08/03/19 08:10 76 18 08/03/19 08:00 73 19 08/03/19 07:50 72 16 08/03/19 07:40 74 21 08/03/19 07:30 81 14 08/03/19 07:00 77 15 137/81 95 08/03/19 06:55 36.5 C 85 21 136/91 97 Recovery Score Activity: Moves 4 extremities Respiration: Deep Breath/Cough Circulation: +/-20-49% PreAnes Value Consciousness: Fully Awake Oxygen Saturation: > 92% On Room Air Post Anesthesia Score: 9 Discharge Sedation Level of Care: Phase I Unexpected Event: None Post Sedation Plan On clinical assessment, the patient appears to have tolerated the sedation without complications. Patient is recovering as anticipated. Patient will continue to be monitored by nursing and may be discharged when sedation discharge criteria are met per below protocol. Upon Completions of procedure up to 15 minutes continue every 5 minute vital signs and the P.A.R. score; then discharge to a Phase I or Fast Track to Phase II per the following guidelines: * Discharge Patient to appropriate Phase II area if PAR is 8 or greater or return to pre- procedure baseline. The post - procedure orders will be as directed. * If PAR score is less than 8 or not return to pre-procedure baseline then patient will follow Phase I monitoring till PAR is reached for Phase II. The Phase I may be done in procedure room or may call to secure a Phase I area. * If naloxone or flumazenil are used for reversal, hold in Phase I for continued monitoring from when last reversal dose was given for a minimum of 60 minutes or longer pending the nurse and/or physician discretion of patient condition before discharge to Phase II. Please call the Sedation Physician to re-evaluate and complete post-note for discharge to Phase II area. Do NOT discharge from procedure sedation or Phase 1 until post- sedation evaluation note is complete by procedure /sedation MD Sedation Discharge Instructions to be given to the patient at discharge to home. Sedation Data Sedation Times Sedation Start Date: 08/03/19 Sedation Start Time: 08:58 Sedation End Date: 08/03/19 Sedation End Time: 09:07 Total Sedation Time: 9 Procedure Times Procedure Start Time:: 09:05 Procedure End Time: 09:07 Specimens Specimens Obtained: No
--- NOTE | 2019-08-03 10:20 | Emergency Department Note ---
ED Visit Note PROCEDURE NOTE: Procedure: Orogastric tube placement Indication: Small bowel obstruction Orogastric tube was placed in conjunction with conscious sedation administered by Dr. Velazquez. Please refer to his documentation for further information. When adequate anesthesia was achieved, attempts were made to place a nasogastric tube, but tube could not be passed easily via either nare. Decision was then made to place an orogastric tube. 14 Jamaican tube was placed, encouraging the patient to swallow to facilitate passage of the tube. Tube placement was checked by auscultating over the abdomen with positive bowel sounds. Also were able to aspirate and suction stomach contents successfully. Tube placement was confirmed with a KUB x-ray. The tube was secured at the corner of the mouth with tape. Was hooked up to low intermittent suction. Patient tolerated the procedure well. .
--- NOTE | 2019-08-03 10:21 | History & Physical Report ---
Date of Service August 03, 2019 Assessment & Plan (1) Incarcerated umbilical hernia: Incarcerated umbilical hernia causing SBO. Will plan for laparoscopy, repair of umbilical hernia laparoscopic versus open. History of Present Illness Primary Care Provider: Karlie Bates DO 63 y/o male with abdominal pain, N/V for several day not able to keep anything down. Has had a bowel movement for several days. Small bowel containing umbilical hernia seen on CT, ? partially reduced by ER during sedation for OG tube placement. Still having some pain. Allergies Allergy/AdvReac Type Severity Reaction Status Date / Time ketorolac Allergy Unknown BURNING Verified 11/28/18 10:13 SENSATION tramadol Allergy Unknown GI UPSET Verified 11/28/18 10:13 ciprofloxacin [From Cipro] AdvReac Intermediate upset Verified 11/28/18 10:13 stomach Home Medications Home Medications Medication Instructions Recorded Confirmed Type aspirin [Aspir-Low] 81 mg PO DAILY 04/21/18 08/03/19 History clonazepam [Klonopin] 0.25 mg PO BID PRN 04/21/18 08/03/19 History losartan 100 mg PO DAILY 04/21/18 08/03/19 History oxycodone [OxyContin] 10 mg PO Q12 04/21/18 08/03/19 History pantoprazole 40 mg PO BID 04/21/18 08/03/19 History pregabalin [Lyrica] 225 mg PO TID 04/21/18 08/03/19 History sertraline [Zoloft] 50 mg PO DAILY 04/21/18 08/03/19 History metoprolol succinate 50 mg PO DAILY 11/28/18 08/03/19 History oxycodone 10 mg PO TID 11/28/18 08/03/19 History Past Med/Surg History Medical History Acquired claw toe of left foot (Acute) Anxiety (Chronic) Callus (Acute) Charcot's joint of right foot (Acute) Charcot's joint, left ankle and foot (Acute) Chronic pain (Chronic) Chronic ulcer of left midfoot (Acute) Depression (Chronic) Diabetes mellitus with diabetic polyneuropathy (Acute) DMII (diabetes mellitus, type 2) (Chronic) GERD (gastroesophageal reflux disease) (Chronic) HTN (hypertension) (Chronic) Morbid obesity due to excess calories (Chronic) Multiple rib fractures involving four or more ribs (Resolved) OA (osteoarthritis) of knee (Chronic) ENRIQUE (obstructive sleep apnea) (Chronic) Smoker (Chronic) Surgical History H/O knee surgery (Chronic) History of bilateral knee replacement (Chronic) S/P trigger finger release (Chronic) Family History Father Lung cancer Mother Hypertension Dementia Social History Preferred Language: Pashto Communication Ability: Effective Communication Ability Comment: before conscious sedation 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 Beliefs That Will Affect Care: None marital status: Current Living Situation: Spouse Other Information That Helps Us Care for You: No Feels Safe at Home: Yes Safety Concerns: Feels Safe At This Time Smoking Status: Current every day smoker Tobacco Type: cigarettes ; Cigarettes Per Day: 20 ; Do You Dip or Chew Tobacco: No ; Second Hand Exposure: No ; Tobacco Cessation Education Requested by Patient: No Hx Alcohol Use: Yes Alcohol type: beer Hx Substance Use: Yes substance use type: opiates and prescription drug Last Used Substance: Unknown Review of Systems Constitutional: no fever and no chills Respiratory: no cough and no dyspnea Cardiovascular: no chest pain Gastrointestinal: + abdominal pain, + nausea, + vomiting and + constipation Physical Exam Constitutional: WD/WN, vitals as above Respiratory: normal respiratory effort, lungs clear to auscultation Cardiovascular: RRR, no murmur, no edema Gastrointestinal (Abdomen): Percussion/Palpation: + abdomen tender and abdomen soft obese, supraumbilical skin erythema Results & Data Vital Signs (Past 12 Hours) Vital Signs Temp Pulse Pulse Resp BP BP Pulse Ox 08/03/19 09:45 79 126/68 92 08/03/19 09:40 80 14 111/69 98 08/03/19 09:35 83 12 111/78 98 08/03/19 09:30 79 12 102/70 97 08/03/19 09:25 81 11 L 113/77 95 08/03/19 09:20 80 12 111/64 97 08/03/19 09:15 87 11 L 117/70 99 08/03/19 09:12 84 14 119/96 94 08/03/19 09:10 84 12 102/80 93 08/03/19 09:06 89 14 115/58 L 08/03/19 09:00 76 16 115/61 99 08/03/19 08:57 74 16 145/77 H 98 08/03/19 08:55 84 16 122/94 99 08/03/19 08:50 82 14 125/74 98 08/03/19 08:48 79 18 140/75 96 08/03/19 08:40 78 13 08/03/19 08:38 73 16 145/77 H 08/03/19 08:37 81 20 145/77 H 96 08/03/19 08:20 75 12 08/03/19 08:10 76 18 08/03/19 08:00 73 19 08/03/19 07:50 72 16 08/03/19 07:40 74 21 08/03/19 07:30 81 14 08/03/19 07:00 77 15 137/81 95 08/03/19 06:55 36.5 C 85 21 136/91 97 Supervising Physician Co-Signing Physician Notes Patient seen and examined, labs and imaging reviewed, agree with above. 63-year-old morbidly obese male presented with abdominal pain and nausea and vomiting and obstipation. CT scan showed incarcerated loop of bowel in umbilical hernia. This was later reduced by the ER under sedation. On exam the patient has some erythema just above his umbilicus. I am not able to palpate the hernia at this time. He is otherwise stable. Umbilical hernia with small bowel obstruction, reduced in the emergency department. We discussed the options with the patient to include discharged home with follow-up as an outpatient for elective repair versus repair today. Due to the duration of symptoms the patient agreed to proceed with surgical repair. Plan for diagnostic laparoscopy, open versus laparoscopic umbilical hernia repair, possible bowel resection The risk the procedure were discussed to include but not limited to bleeding, infection, recurrence, damage to surrounding structures, need for future more extensive surgery, pain, and the risk of anesthesia Preop antibiotics Admit for overnight observation Diagnosis, details of the procedure and recovery, and plan of care discussed the patient, all questions were answered, the patient expressed understanding and agrees with plan of care as stated PG Care Time/CCT Total # of Minutes Spent Total Time Spent with Patient: Total time spent is greater than 50% in coordination of care (as documented) at patient's floor/unit and/or counseling patient: Coding Level of Care Code None Diagnoses Incarcerated umbilical hernia K42.0
[2019-08-03] MEDS ORDERED: BUPIVACAINE LIPOSOME 1.3% 266 MG/20 ML VIAL ONE (11:20)
[2019-08-03] MEDS ORDERED: BUPIVACAINE 0.5 % 5 MG/1 ML MPF 30ML VIAL ONE (11:20)
[2019-08-03] MEDS ORDERED: CEFAZOLIN 3000MG 72.5 ML IV ONE (13:00)
[2019-08-03] MEDS ORDERED: ROCURONIUM BROMIDE 10 MG/ML 5 ML VIAL ONE (13:05)
[2019-08-03] MEDS ORDERED: GLYCOPYRROLATE 0.2 MG/ML VIAL ONE (13:05)
[2019-08-03] MEDS ORDERED: ePHEDrine sulfate 50 MG/ML SYR ONE (13:05)
[2019-08-03] MEDS ORDERED: SUCCINYLCHOLINE CHLORIDE 20 MG/ML 10 ML VIAL ONE (13:05)
[2019-08-03] MEDS ORDERED: ONDANSETRON INJ 2 MG/ML 2 ML VIAL ONE ×2 (13:05→13:49)
[2019-08-03] MEDS ORDERED: LIDOCAINE HCL 2% 2 ML VIAL/AMP(20MG/ML) INFIL ONE (13:05)
[2019-08-03] MEDS ORDERED: PHENYLEPHRINE 100MCG/ML 5ML SYR ONE (13:05)
[2019-08-03] MEDS ORDERED: NEOSTIGMINE METHYLSULFATE 5 MG/5 ML SYR ONE (13:05)
[2019-08-03] MEDS ORDERED: PROPOFOL IV EMULSION 10 MG/ML 20 ML VIAL IV ONE (13:05)
[2019-08-03] MEDS ORDERED: CEFAZOLIN 250 MG/ML 1 GM VIAL ONE (13:05)
--- NOTE | 2019-08-03 13:43 | Operative Report ---
PG Post Operative Report Pre & Post Diagnosis Operation Date: 08/03/19 09:45 Pre-Op Diagnosis: Incarcerated umbilical hernia causing small bowel obstruction Post-Op Diagnosis: Incarcerated umbilical hernia causing small bowel obstruction I identified the patient and participated in the time-out.: Yes Procedure Operation Date: 08/03/19 09:45 Actual Procedures p Diagnostic Laparoscopy; Incarcerated Umbilical Hernia Repair,(Not Applicable) - Timothy Esparza DO, FACS Surgeon Timothy Esparza DO, CHRI[employer] Operator Hair Emanuel PA Estimated Blood Loss 5 Findings Consistent with Post-Op Diagnosis Diagnostic laparoscopy performed. Zhang's type hernia reduced laparoscopically, bowel inflamed but viable with no serosal injury. Defect identified. Supraumbilical midline incision made overlying the defect, hernia reduced, additional small defect identified. Total defect size was 2.5 cm. Due to the presence of erythema and incarcerated bowel, we closed the defect primarily utilizing interrupted 0 Nurolon sutures. Reentered laparoscopically, bowel again appeared viable with no serosal injury. Bowel was peristalsing and proximal bowel was decompressing. The supraumbilical defect was closed, there was a small umbilical defect, but this was left in place for now. Exparel injected. Specimens None Anesthesia Type General Complications none Disposition Accompanied Patient To Recovery: No Disposition: Recovery Room Indications 63-year-old male presented to the emergency department with several day history of abdominal pain with nausea and vomiting. CT scan revealed an incarcerated umbilical hernia with a small bowel obstruction. Plan for diagnostic laparoscopy, laparoscopic versus open umbilical hernia repair, possible small bowel resection. The risks of the procedure were discussed, all questions were answered, and the patient agreed to proceed with surgery as planned. Description of Procedure The patient was properly identified, consented, and taken to the operating room where he was placed in the supine position. General endotracheal anesthesia was induced. SCDs and a safety belt were placed. Preoperative antibiotics were administered. The patient's abdomen was prepped and draped in the standard sterile fashion. Surgical timeout was performed and all parties were in agreement that this was the correct patient and procedure to be performed and we continued as planned. A stab incision was made in the right upper quadrant and the Veress needle was inserted. Saline drop test showed entry into the peritoneal cavity. The abdomen was then insufflated with carbon dioxide which the patient tolerated without incident. The Veress needle was removed and using the Optiview technique and a 5 mm port we entered the abdomen laparoscopically. No damage from initial trocar was noted. The 4 quadrants of the abdomen were examined. The small bowel was distended proximally, and there was some ascites present in the pelvis. The small bowel still appeared to be incarcerated in the hernia defect. The camera was gently swept to the side and I was able to easily reduce the bowel. The bowel was inspected and it appeared to be a Zhang's type hernia. The antimesenteric area was inflamed but there was no evidence of ischemia, and no evidence of serosal injury. The defect was identified and was quite small. At this point we decided to repair the hernia defect in an open fashion. A vertical midline supraumbilical incision was made and deepened down to the fascia with blunt dissection. The hernia sac was encountered and was dissected away from the surrounding tissue. This was then reduced back into the abdomen. A 2 cm fascial defect was encountered. There was an additional hernia just superior to this containing preperitoneal fat which was reduced. The fascial bridge was then divided to create one defect. The fascia anteriorly and posteriorly was cleared of investing tissue for several centimeters. Hemostasis was achieved within the wound. Due to the presence of erythema upon presentation to the emergency department and the concern for possible bacterial seeding of the mesh, we elected to repair the defect primarily. This was performed in a transverse fashion using interrupted 0 Nurolon sutures. The wound was irrigated and hemostasis confirmed. Exparel mixed with half percent Marcaine was then injected along the fascia and surgical incisions. We then reentered laparoscopically and again inspected the bowel. The bowel appeared to be peristalsing and the proximal small bowel appeared to be decompressing. The area of bowel that had been incarcerated within the hernia was again inspected and appeared to be viable. Some ascites was suctioned out of the pelvis. The the hernia repair was inspected and appeared good. Just inferior to this there was a small umbilical defect containing preperitoneal fat, however we elected not to repair this at this time. The laparoscope and port were removed and the abdomen was allowed to collapse. The skin was closed with interrupted 3-0 Vicryl deep dermal sutures, followed by 4-0 Monocryl running subcuticular suture. Dermabond was placed over the wounds. The patient was extubated in the operating room and taken to the PACU where he recovered without apparent incident. All sponge, instrument and needle counts were correct at the conclusion of the procedure. The patient tolerated the procedure well. The physician's account management assistant was present and scrubbed for the entire the case. He was critical in positioning the patient, prepping and draping, retraction and exposure, driving the laparoscope, repair the hernia, closure the incisions, and placement of the dressings. I attest to the content of the Intraoperative Record and any orders documented therein. Any exceptions are noted below.
[2019-08-03] MEDS: fentaNYL citrate 100 MCG/2 ML VIAL IV PRN ×2 (13:50→13:55)
[2019-08-03] MEDS ORDERED: ATROPINE SULFATE 0.1 MG/ML 10ML SYR IV PRN (13:53)
[2019-08-03] MEDS ORDERED: PROMETHAZINE HCL 12.5 MG in SODIUM CHLORIDE 0.9% 50 ML IV PRN (13:53)
[2019-08-03] MEDS ORDERED: ONDANSETRON INJ 2 MG/ML 2 ML VIAL IV PRN ×2 (13:53→15:04)
[2019-08-03] MEDS ORDERED: ePHEDrine sulfate 50 MG/ML AMP IV PRN (13:53)
[2019-08-03] MEDS ORDERED: METOCLOPRAMIDE HCL INJ 5 MG/ML 2 ML VIAL IV PRN (13:53)
[2019-08-03] MEDS: HYDROmorphone INJ 2 MG/ML SYR/VIAL IV PRN ×2 (14:00→14:05)
[2019-08-03] MEDS ORDERED: MoRPHine SULFATE 2 MG/ML CARP IV PRN (15:04)
[2019-08-03] MEDS ORDERED: clonazePAM 0.5 MG TAB PO PRN (15:04)
--- NOTE | 2019-08-03 15:05 | Anesthesiology Progress Note ---
Date of Service August 03, 2019 Anesthesia Post Procedure Vital Signs Vital Signs: Temp Pulse Pulse Pulse Resp BP BP 08/03/19 14:40 36.6 C 88 16 137/70 08/03/19 14:10 85 16 126/81 08/03/19 14:00 91 H 16 110/73 08/03/19 13:50 103 H 16 136/71 08/03/19 13:44 37.1 C 79 16 119/67 08/03/19 11:46 36.5 C 75 82 16 95/57 L 116/68 08/03/19 10:40 76 13 124/65 08/03/19 10:35 75 14 115/81 08/03/19 10:30 71 118/64 08/03/19 10:25 73 113/63 08/03/19 10:20 73 12 117/58 L 08/03/19 10:15 80 14 102/64 08/03/19 10:10 81 110/65 08/03/19 10:08 74 14 117/72 08/03/19 10:05 88 13 149/130 H 08/03/19 10:00 78 124/72 08/03/19 09:57 83 11 L 140/72 08/03/19 09:55 78 15 129/100 08/03/19 09:50 78 14 130/102 H 08/03/19 09:45 79 126/68 08/03/19 09:40 80 14 111/69 08/03/19 09:35 83 12 111/78 08/03/19 09:30 79 12 102/70 08/03/19 09:25 81 11 L 113/77 08/03/19 09:20 80 12 111/64 08/03/19 09:15 87 11 L 117/70 08/03/19 09:12 84 14 119/96 08/03/19 09:10 84 12 102/80 08/03/19 09:06 89 14 115/58 L 08/03/19 09:00 76 16 115/61 08/03/19 08:57 74 16 145/77 H 08/03/19 08:55 84 16 122/94 08/03/19 08:50 82 14 125/74 08/03/19 08:48 79 18 140/75 08/03/19 08:40 78 13 08/03/19 08:38 73 16 145/77 H 20 08:37 81 20 145/77 H 20 08:20 75 12 20 08:10 76 18 20 08:00 73 19 20 07:50 72 16 20 07:40 74 21 20 07:30 81 14 08/03/19 07:00 77 15 137/81 03 06:55 36.5 C 85 21 136/91 Pulse Ox 08/03/19 14:40 100 20 14:10 97 08/03/19 14:00 99 20 13:50 98 08/03/19 13:44 96 20 11:46 98 08/03/19 10:40 97 08/03/19 10:35 96 08/03/19 10:30 96 08/03/19 10:25 95 08/03/19 10:20 94 08/03/19 10:15 97 08/03/19 10:10 98 08/03/19 10:08 99 20 10:05 99 08/03/19 10:00 99 20 09:57 98 20 09:55 99 20 09:50 95 20 09:45 92 08/03/19 09:40 98 20 09:35 98 08/03/19 09:30 97 20 09:25 95 20 09:20 97 08/03/19 09:15 99 20 09:12 94 08/03/19 09:10 93 20 09:06 08/03/19 09:00 99 20 08:57 98 20 08:55 99 20 08:50 98 20 08:48 96 08/03/19 08:40 20 08:38 20 08:37 96 08/03/19 08:20 08/03/19 08:10 08/03/19 08:00 08/03/19 07:50 03 07:40 03 07:30 08/03/19 07:00 95 08/03/19 06:55 97 Pain Intensity Abdomen: Pain Intensity: 7 Transfer of Care Handoff Completed per policy Notes Mental Status: alert / awake / arousable and participated in evaluation Patient Amnestic to Procedure: Yes Nausea / Vomiting: adequately controlled Pain: adequately controlled Airway Patency, RR, SpO2: stable & adequate BP & HR: stable & adequate Hydration State: stable & adequate Anesthetic Complications: no major complications apparent
[2019-08-03] MEDS: SODIUM CHLORIDE 0.9% 1000ML 1,000 ML IV SCH (15:31)
[2019-08-03] MEDS: OXYCODONE HCL IR 5 MG TAB (IMMEDIATE RELEASE) PO SCH ×2 (15:34→21:03)
[2019-08-03] MEDS: PREGABALIN 75 MG CAP PO SCH ×2 (15:35→21:03)
[2019-08-03] MEDS: MoRPHine SULFATE 4 MG/ML 1 ML CARP\\VIAL IV PRN ×3 (16:48→23:33)
[2019-08-03] MEDS ORDERED: CARBOHYDRATES FOR HYPOGLYCEMIA PO PRN (19:10)
[2019-08-03] MEDS ORDERED: GLUCOSE 10 TABS/TUBE PO PRN (19:10)
[2019-08-03] MEDS ORDERED: GLUCAGON FOR INJ 1 MG VIAL SQ PRN (19:10)
[2019-08-03] MEDS ORDERED: DEXTROSE 50% 50 ML SYRINGE IV PRN (19:10)
[2019-08-03] MEDS ORDERED: GLUCOSE 40% GEL 15 GM TUBE PO PRN (19:10)
[2019-08-03] MEDS: INSULIN ASPART 100 UNITS/ML 3 ML PEN SC SCH (20:55)
[2019-08-03] MEDS: OXYCODONE HCL 10 MG TABCR (OXYCONTIN) PO SCH (21:03)
[2019-08-03] MEDS: PANTOprazole 40 MG TAB PO SCH (21:03)
[2019-08-04] MEDS: SODIUM CHLORIDE 0.9% 1000ML 1,000 ML IV SCH ×2 (00:51→10:41)
[2019-08-04] MEDS: MoRPHine SULFATE 4 MG/ML 1 ML CARP\\VIAL IV PRN ×4 (06:02→23:21)
[2019-08-04] MEDS: INSULIN ASPART 100 UNITS/ML 3 ML PEN SC SCH ×4 (08:27→20:49)
[2019-08-04] MEDS: LOSARTAN POTASSIUM 50 MG TAB PO SCH (09:29)
[2019-08-04] MEDS: ASPIRIN 81 MG ECTAB PO SCH (09:29)
[2019-08-04] MEDS: OXYCODONE HCL 10 MG TABCR (OXYCONTIN) PO SCH ×2 (09:30→20:37)
[2019-08-04] MEDS: PREGABALIN 75 MG CAP PO SCH ×3 (09:30→20:37)
[2019-08-04] MEDS: OXYCODONE HCL IR 5 MG TAB (IMMEDIATE RELEASE) PO PRN ×3 (09:34→21:49)
[2019-08-04] MEDS: METOPROLOL SUCC 50MG EXT REL TAB PO SCH (09:34)
[2019-08-04] MEDS: SERTRALINE HCL 50 MG TABLET PO SCH (09:34)
--- NOTE | 2019-08-04 09:46 | Surgery Progress Note ---
Date of Service August 04, 2019 Assessment & Plan (1) Incarcerated hernia: POD#1 repair of incarcerated umbilical hernia passing flatus and BM's tolerating some clear liquids will advance diet will start po abx for abdominal erythema possible discharge to home later today pending pain control and toleration of diet Supervising Physician Co-Signing Physician Notes Patient seen and examined, agree with above except as differs below. 63-year-old male POD #1 diagnostic laparoscopy with reduction of incarcerated Zhang's supraumbilical hernia, and open primary repair of supraumbilical hernia defect. Overall doing well, tolerating clears. Did feel little nausea with full liquids. He has some pain around the incision site. He also notes that the redness is spread from yesterday. He received antibiotics preop. On exam his abdomen is moderately distended but soft. He does have erythema extending from the incision site. We will place him on IV antibiotics, continue diet as tolerated, plan to keep overnight until cellulitis is resolving. Subjective Patient feels okay. Requesting his pain medication be ordered to the schedule he takes it at home, oxy 5mg every 6hour. Only getting short relief with the IV morphine. He is tolerating cold clear liquids without issue. Has very mild nausea, but says it is much better than yesterday. Is passing flatus and BMs. Physical Exam Physical Exam: awake/alert Constitutional: no acute distress Gastrointestinal (Abdomen): Inspection/Auscultation: + abdominal surgical incision (c/d/i with dermabond overtop. extending erythema over central abdomen) Results & Data Vital Signs (Past 12 Hours) Vital Signs Temp Pulse Resp BP Pulse Ox 08/04/19 07:02 36.6 C 79 18 131/77 98 08/04/19 02:21 36.5 C 80 16 109/67 96 08/03/19 23:15 36.5 C 84 16 114/72 98 PG Care Time/CCT Total # of Minutes Spent Total Time Spent with Patient: Total time spent is greater than 50% in coordination of care (as documented) at patient's floor/unit and/or counseling patient: Coding Level of Care Code None Diagnoses Incarcerated hernia K46.0
[2019-08-04] MEDS ORDERED: IBUPROFEN 200 MG TAB PO PRN (11:12)
[2019-08-04] MEDS ORDERED: DEXTROSE 5% IV SCH (11:45)
[2019-08-04] MEDS ORDERED: SULFA IV SCH (11:45)
[2019-08-04] MEDS ORDERED: TRIMETH IV SCH (11:45)
[2019-08-04] MEDS: PANTOprazole 40 MG TAB PO SCH ×2 (12:21→20:36)
[2019-08-04] MEDS: ACETAMINOPHEN 325 MG TAB PO SCH ×3 (12:22→23:20)
[2019-08-04] MEDS: AMPICILLIN/SULBACTAM SOD 3,000 MG in 0.9 % SODIUM CHLORIDE 100 ML IV SCH ×3 (12:23→23:20)
[2019-08-04] MEDS ORDERED: cephALEXin 500 MG CAP PO SCH (13:00)
[2019-08-04] MEDS ORDERED: SULFAMETHOXAZOLE/TRIMETHOPRIM DS 800/160MG TAB PO SCH (21:00)
[2019-08-05] MEDS: MoRPHine SULFATE 4 MG/ML 1 ML CARP\\VIAL IV PRN ×4 (03:07→11:48)
[2019-08-05] MEDS: ACETAMINOPHEN 325 MG TAB PO SCH ×2 (05:33→12:56)
[2019-08-05] MEDS: OXYCODONE HCL IR 5 MG TAB (IMMEDIATE RELEASE) PO PRN ×2 (05:34→11:48)
[2019-08-05] MEDS: AMPICILLIN/SULBACTAM SOD 3,000 MG in 0.9 % SODIUM CHLORIDE 100 ML IV SCH (05:34)
[2019-08-05 05:39] LABS: Basophils # (auto) 0.02 K/uL (0-0.2); Basophils % (auto) 0.3 %; Eosinophils # (auto) 0.18 K/uL (0-0.5); Hematocrit (blood only) 35.6 % (42-52); Hemoglobin 11.6 g/dL (14.0-18.0); Immature Granulocytes # (auto) 0.03 K/uL (0.00-0.02); Immature Granulocytes % (auto) 0.5 %; Lymphocytes # (auto) 1.33 K/uL (1.2-3.4); Lymphocytes % (auto) 22.4 %; Mean Corpuscular Hemoglobin 29.1 pg (25-34); Mean Corpuscular Hgb Conc 32.6 g/dL (32-36); Mean Corpuscular Volume 89.2 fL (80-100); Mean Platelet Volume 11.9 fL (7.4-10.4); Monocytes # (auto) 0.82 K/uL (0.11-0.59); Monocytes % (auto) 13.8 %; Neutrophils # (auto) 3.56 K/uL (1.4-6.5); Platelet Count 133 K/uL (130-400); RDW Coefficient of Variation 13.7 % (11.5-14.5); RDW Standard Deviation 45.1 fL (36.4-46.3); Red Blood Count 3.99 M/uL (4.7-6.1); White Blood Count 5.94 K/uL (4.8-10.8)
[2019-08-05 06:10] LABS: BUN Creatinine Ratio 20.5 (10-20); Calcium 8.4 mg/dl (8.5-10.1); Creatinine Clr Calc Pharmacy 143.8 ml/min; Est GFR (African American) 114.6; Est GFR (Non-African American) 98.9; Potassium 3.7 mmol/L (3.5-5.1)
[2019-08-05] MEDS: PREGABALIN 75 MG CAP PO SCH (08:55)
[2019-08-05] MEDS: OXYCODONE HCL 10 MG TABCR (OXYCONTIN) PO SCH (08:56)
[2019-08-05] MEDS: METOPROLOL SUCC 50MG EXT REL TAB PO SCH (09:02)
[2019-08-05] MEDS: PANTOprazole 40 MG TAB PO SCH (09:02)
[2019-08-05] MEDS: LOSARTAN POTASSIUM 50 MG TAB PO SCH (09:02)
[2019-08-05] MEDS: ASPIRIN 81 MG ECTAB PO SCH (09:02)
[2019-08-05] MEDS: SERTRALINE HCL 50 MG TABLET PO SCH (09:03)
[2019-08-05] MEDS: INSULIN ASPART 100 UNITS/ML 3 ML PEN SC SCH ×2 (10:03→13:44)
--- NOTE | 2019-08-05 11:16 | Surgery Progress Note ---
Date of Service August 05, 2019 Assessment & Plan (1) Incarcerated umbilical hernia: POD #2 s/p Diagnostic Laparoscopy; Incarcerated Umbilical Hernia Repair. He is doing well this AM. He reports that pain at incision sites is well controlled. Extending erythema over central abdomen is improving. He would like to be discharged to home today. We will switch IV Unasyn to PO Bactrim in anticipation of possible discharge later today. We will check on patient after lunch for possible discharge. Discharge instructions reviewed with patient. 7 day course of Bactrim transmitted to patient's pharmacy. All questions answered. Supervising Physician Co-Signing Physician Notes 63-year-old male POD #2 diagnostic laparoscopy and primary repair of umbilical hernia for incarcerated Zhang's type hernia. Overall doing well, pain improving. He had expanded cellulitis yesterday and he was restarted on antibiotics. This appears to be improving slightly. He is tolerating regular diet and he feels much better. He had a bowel movement. He would like to go home today. Afebrile with stable vitals. Abdomen soft, nondistended, minimally tender incision. The erythema is at the borders previously demarcated, however it is far less red and indurated than it was yesterday. We will transition her to oral antibiotics, if there is no significant change in his erythema this afternoon, then we can potentially discharge him to home. He should stay on 7 days of antibiotics. Wound care instructions and activity restrictions reviewed. Follow-up in 10 to 14 days, we will likely call him to see how he is doing in the next week. He may not need follow-up in the clinic. He was educated on the signs to return for worsening cellulitis and infection. Return precautions given Subjective Timothy is resting comfortably in bed today. He reports that his pain is well- controlled. He is tolerating a Carb consistent diet. Physical Exam Physical Exam: awake/alert Constitutional: no acute distress Gastrointestinal (Abdomen): Inspection/Auscultation: + abdominal surgical incision (c/d/i with dermabond overtop. extending erythema over central abdomen. ) Area of erythema was marked yesterday and redness has improved overnight. It is fading. Results & Data Vital Signs (Past 12 Hours) Vital Signs Temp Pulse Resp BP Pulse Ox 08/05/19 08:00 36.5 C 77 18 122/79 96 PG Care Time/CCT Total # of Minutes Spent Total Time Spent with Patient: Total time spent is greater than 50% in coordination of care (as documented) at patient's floor/unit and/or counseling patient: Coding Level of Care Code 58215 Subseq Hosp Care Lvl 1 Diagnoses Incarcerated umbilical hernia K42.0
[2019-08-05] MEDS ORDERED: SULFAMETHOXAZOLE/TRIMETHOPRIM DS 800/160MG TAB PO ONE (12:20)
[2019-08-05] MEDS ORDERED: SULFAMETHOXAZOLE/TRIMETHOPRIM DS 800/160MG TAB PO SCH (21:00)
--- NOTE | 2019-08-07 09:20 | Discharge Summary ---
Date of Service August 07, 2019 Admission HPI Per Admitting Provider 63 y/o male with abdominal pain, N/V for several day not able to keep anything down. Has had a bowel movement for several days. Small bowel containing umbilical hernia seen on CT, ? partially reduced by ER during sedation for OG tube placement. Still having some pain. Principal Diagnosis Incarcerated umbilical hernia Discharge Exam Gastrointestinal (Abdomen) Inspection/Auscultation: + abdominal surgical incision (clean, dry, erythema improving) Discharge Data Allergies Allergy/AdvReac Type Severity Reaction Status Date / Time ketorolac Allergy Unknown BURNING Verified 11/28/18 10:13 SENSATION tramadol Allergy Unknown GI UPSET Verified 11/28/18 10:13 ciprofloxacin [From Cipro] AdvReac Intermediate upset Verified 11/28/18 10:13 stomach Consultations 08/03/19 08:51 Consult General Surgery Stat 08/03/19 10:00 ED Decision to Admit Stat Procedures Performed Operation Date: 08/03/19 09:45 Actual Procedures p Diagnoistic Laparoscopy; Incarcerated Umbilical Hernia Repair,(Not Applicable) - Timothy Esparza DO, FACS Ordered Studies 08/03/19 06:51 CT abd pelvis IV con only Stat Hospital Course (1) Incarcerated hernia: 63 y/o male presented to ED with periumbilical pain and bulge. CT showed ventral/umbilical hernia with small bowel incarceration causing SBO. He was taken to the operating room for laparoscopy, reduction/inspection of small bowel and primary repair. He was transferred to the surgical floor for observation. He was able to tolerate diet by the next day but had some increasing skin erythema and was started on Unasyn. By POD 2 the erythema had improved and he was stable discharge home on oral antibiotics. Total Time Total Time Spent Total Time Spent (In Minutes): 10 Discharge Plan Discharge Items Patient Disposition: Home - Self-Care Reason For Visit: UMBILICAL HERNIA, SOB Discharge Diagnosis: umbilical hernia repair Activity: Per Instructions section Lifting: No more than 10 pounds Bathing Comment: may shower. no soaking in tubs Exercise/Sports: Wait until after follow-up appointment Driving/Machine Use: Resume 3 days after discharge Non-emergency contact: Surgeon Call non-emergency contact if: you have any medication questions, your symptoms worsen, your pain is not controlled, your pain is worsening, your pain is unusual for you, you have a fever, your temperature is above 101.5, your wound has increased redness, your wound has increased drainage and your wound pain has increased Follow-up/Referrals: Timothy Esparza DO, FACS [Physician] - (Please call to schedule follow up in clinic within 2 weeks) Karlie Bates DO [Primary Care Provider] - Diet: Regular Addtl Attending Provider Instructions: Please call the General Surgery office at with any questions or concerns. Pending Studies at Discharge: No Stand-Alone Forms: My [facility] [employer], Smoking Cessation Medications and DC Order Prescriptions: New oxycodone 5 mg tablet 5 - 10 mg PO Q6H PRN (Reason: post op pain, initial therapy, max 6 daily) Qty: 18 RF: 0 sulfamethoxazole-trimethoprim [Bactrim DS] 800-160 mg tablet 1 tab PO BID 7 Days Qty: 14 RF: 0 Continued clonazepam [Klonopin] 0.5 mg tablet 0.25 mg PO BID PRN (Reason: Anxiety) RF: 0 aspirin [Aspir-Low] 81 mg Tablet,Delayed Release (Dr/Ec) 81 mg PO DAILY RF: 0 pantoprazole 40 mg Tablet,Delayed Release (Dr/Ec) 40 mg PO BID RF: 0 losartan 100 mg Tablet 100 mg PO DAILY RF: 0 sertraline [Zoloft] 50 mg tablet 50 mg PO DAILY RF: 0 pregabalin [Lyrica] 225 mg capsule 225 mg PO TID RF: 0 oxycodone [OxyContin] 10 mg Tablet,Oral Only,Ext.Rel.12 Hr 10 mg PO Q12 RF: 0 oxycodone 5 mg tablet 10 mg PO TID RF: 0 metoprolol succinate 50 mg Tablet Extended Release 24 Hr 50 mg PO DAILY RF: 0 Discharge Orders: Discharge Order (Routine); Ordered 08/05/19 Ordered By: Claudine Lantigua/Other Patient Handouts: Oxycodone tablets or capsules Admission Data Admit Date/Time: 08/03/19 14:06 Attending Provider: Timothy Esparza Admit Provider: Timothy Esparza Primary Care Provider: Karlie Bates Other Interventions: Discharge Summary Assessment (RN) Last Done: 08/05/19 14:00 DC Date/Time DO NOT enter until pt leaves facility: 08/05/19 14:05 Coding Level of Care Code D/C Day Management <30 mins Diagnoses Incarcerated hernia K46.0
== END 2019-08-05 14:05 | disposition home or self-care (01) ==
LOC: ED 06:45 → ASU 11:45 → 3N 11:45 → ASU 11:46

== ENCOUNTER 2019-12-12 02:48 | Inpatient (IN) ==
--- NOTE | 2019-12-12 03:01 | Emergency Department Note ---
Impression & Plan Altered mental status, Chest pain, Shortness of breath ED Provider Note Name: MOOSE ANN Age: 64 Sex: M Arrives Via: Ambulance Informant: Patient, EMS, Nursing ED Provider: Aleks Palacios MD Chief Complaint: Chest Pain Impression: Altered Mental Status Chest Pain Shortness of breath Medical Decision Makin yr old arrives somnolent with reported chest pain and shortness of breath. Waking up some in ED and complaining of CP/SOB along with full body weakness. No focal weakness on arrival, and no clear evidence this is acute stroke. He is somnolent but answering all questions. CT head negative. CXR clear. EKG unremarkable x 2. Trop negative. Exam stable and no clear etiology of all of these symptoms. I do suspect weakness may be opioid induced given large amounts he is on. No indication for CTA head nor TPA at this time. ASA given with negative CT head. Patient refused Nitro. With normal work-up thus far but symptoms he is having hospitalist consulted for further management. Prior Medical Record and Triage/Nursing Notes reviewed by Me Additional history obtained from daughter Differentials:Infection, dehydration, metabolic abnormality, hypo/hyperglycemia, electrolyte disturbance, anemia, hypoxia, cardiac sources, intracerebral event, toxicologic, neurologic, as well as other pathologies. Vital Signs: reviewed and remarkable for HTN, mild tachy Interventions: ASA 324mg PO Labs:Reviewed and remarkable for no significant abnormalities Imaging:X ray results are stated below per my interpretation: Chest: 1 view: No infiltrate, no effusion, normal cardiac border. [facility] Radiologist interpretation reviewed by me: CT head no acute findings EKG:Per My Interpretation: Indication Chest Pain: NSR 94 bpm, qtc 440. No Ectopy. No Ischemia. Compared to EKG 08/03/19, no significant changes. Cardiac/Tele Monitoring: Cardiac Monitoring: An Order was placed for continuous cardiac monitoring. The monitor shows a rate of 90 with a normal sinus rhythm. Consults:Dr Cynthia Childs Hospitalist Plan: Disposition:Hospitalization. Condition: Good Blood pressure:Normal.No Referral necessary Prescriptions:none PDMP: n/a History of Present Illness:64 / M arrives for evaluation of chest pain. Patient was at home with family sitting in wheel chair when he developed chest pain. Bilateral upper chest pain. Associated with shortness of breath. Patient reportedly crying out during this. EMS arrived and patient was somnolent and mildly confused. 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 Patient notes drinking a few beers earlier in evening along with his normal pain (oxy) medications. Denies drug use otherwise. States chest pain and shortness of breath have resolved. Denies back pain, abdominal pain, nausea, vomiting, syncope, headache, neck pain, fevers, chills, nor other symptoms. Notes chronic leg pain s/p amputation below knee on left and bilateral knee pain due to previous surgeries. Patient with history of DMII, GERD, DLP, Depression, HTN, ENRIQUE, Smoking, but denies history of cardiac issues. ROS: See above HPI for pertinent positives & negatives. A total of 10 systems reviewed and were otherwise negative. Past Medical History:DMII, GERD, DLP, Depression, HTN, ENRIQUE, Past Surgical History:bilateral knee surgery, left lower leg amputation,father lung ca, mother dementia, HTN Family History:father lung ca, mother dementia, HTN Social History:Smokes, , drinks beer regularly, , lives with family Home Medications:Oxycodone, Atorvastatin, losartan, metformin, metoprolol, pantoprazole Allergies:toradol, tramadol, cipro Vitals:Blood Pressure: 153/63, Pulse 102, RR 20, T 37.1C, O2 96% on NC Physical Exam: GENERAL: Patient is tired/somnolent appearing and in no acute distress. EYES: No scleral icterus, unremarkable pupils. ENT: Mucous membranes moist, no nasal congestion. NECK: No masses appreciated, nomeningismus, trachea is midline. RESPIRATORY: No dyspnea. Clear to auscultation and equal bilaterally. No wheeze, no rhonchi. CARDIOVASCULAR: Mild tachy.No murmurs, rubs, gallops appreciated. GASTROINTESTINAL: Abdomen soft, non-tender, no peritonitis.Bowel sounds positive.No masses appreciated. BACK: No midline tenderness, no CVA tenderness EXTREMITIES: Left BKA, otherwise normal motion all extremities, no cyanosis, no edema. NEUROLOGIC: Somnolent, answers questions but mostly yes/no, no acute motor or sensory deficits, no focal weakness, cranial nerves grossly intact. SKIN: No rash, no jaundice, no diaphoresis. PSYCH: Somnolent GCS: 15 ED Course: Times/Reassessments: stable, slowly waking up a bit Aleks Palacios MD Past Med/Surg History Social History Smoking Status: Current every day smoker Tobacco Type: Cigarettes Cigarettes Per Day: 20; Second Hand Exposure: No; Hx Alcohol Use: Yes Alcohol type: beer Hx Substance Use: No Preferred Language: Dutch Communication Ability: Effective Trader Required: No Beliefs That Will Affect Care: None marital status: Current Living Situation: Family Other Information That Helps Us Care for You: No Feels Safe at Home: Yes Safety Concerns: Feels Safe At This Time Allergies Allergies Allergy/AdvReac Type Severity Reaction Status Date / Time ketorolac Allergy Unknown BURNING Verified 12/12/19 03:19 SENSATION tramadol Allergy Unknown GI UPSET Verified 12/12/19 03:19 ciprofloxacin [From Cipro] AdvReac Intermediate upset Verified 12/12/19 03:19 stomach Home Meds Home Medications Medication Instructions Recorded Confirmed losartan 100 mg PO DAILY 04/21/18 12/12/19 pantoprazole 40 mg PO BID 04/21/18 12/12/19 metoprolol succinate 50 mg PO DAILY 11/28/18 12/12/19 Lyrica 225 mg PO TID 12/12/19 12/12/19 aspirin [Bryson Chewable Aspirin] 81 mg PO DAILY 12/12/19 12/12/19 atorvastatin 20 mg PO DAILY 12/12/19 12/12/19 docusate sodium [Stool Softener] 100 mg PO DAILY 12/12/19 12/12/19 metformin 1,000 mg PO BID 12/12/19 12/12/19 ondansetron 4 mg TRANSLINGUAL Q8 PRN 12/12/19 12/12/19 oxycodone 15 mg PO Q4H PRN 12/12/19 12/12/19 oxycodone [OxyContin] 30 mg PO BID 12/12/19 12/12/19 Results & Data (ED) Vital Signs Vital Signs - 24 hr 12/12/19 03:05 12/12/19 03:30 12/12/19 04:00 Temperature 37.1 C Temperature Source Oral Pulse Rate 107 H Pulse Rate [Apical] 102 H 97 H Pulse Rhythm Regular Pulse Rhythm [Apical] Regular Pulse Strength Normal Pulse Strength [Apical] Normal Normal Respiratory Rate 20 20 18 Respiratory Effort / Characteristics Non-Labored Spontaneous Non-Labored Spontaneous Respiratory Depth Normal Normal Normal Respiratory Pattern Blood Pressure 145/78 H Blood Pressure [Right Arm] 153/63 H 148/84 H Blood Pressure Mean 100 Blood Pressure Mean [Right Arm] 93 105 Blood Pressure Position [Right Arm] Lying Pulse Oximetry 94 96 Oxygen Delivery Method Room Air Nasal Cannula Oxygen Flow Rate 2 Sepsis Recent Fever Within 48 Hours No Sepsis New/Unexplained Change in Mental Status Yes Sepsis Action Taken by Nursing No Action Required 12/12/19 05:26 Temperature Temperature Source Pulse Rate Pulse Rate [Apical] 92 H Pulse Rhythm Pulse Rhythm [Apical] Regular Pulse Strength Pulse Strength [Apical] Normal Respiratory Rate 20 Respiratory Effort / Characteristics Non-Labored Spontaneous Respiratory Depth Normal Respiratory Pattern Regular Blood Pressure Blood Pressure [Right Arm] 140/81 Blood Pressure Mean Blood Pressure Mean [Right Arm] 100 Blood Pressure Position [Right Arm] Lying Pulse Oximetry 98 Oxygen Delivery Method Nasal Cannula Oxygen Flow Rate 2 Sepsis Recent Fever Within 48 Hours Sepsis New/Unexplained Change in Mental Status Sepsis Action Taken by Nursing Laboratory Data Result diagrams: 12/12/19 03:05 12/12/19 03:05 Lab Results 12/12/19 12/12/19 12/12/19 Range/Units 03:05 03:05 03:05 WBC 5.84 (4.8-10.8) K/uL RBC 4.39 L (4.7-6.1) M/uL Hgb 12.6 L (14.0-18.0) g/dL Hct 38.3 L (42-52) % MCV 87.2 (80-100) fL MCH 28.7 (25-34) pg MCHC 32.9 (32-36) g/dL RDW Std Deviation 44.1 (36.4-46.3) fL RDW Coeff of Madelyn 13.8 (11.5-14.5) % Plt Count 126 L (130-400) K/uL MPV 11.6 H (7.4-10.4) fL Immature Gran % (Auto) 0.5 % Neut % (Auto) 70.1 % Lymph % (Auto) 17.6 % [place] % (Auto) 8.9 % Eos % (Auto) 2.7 % Baso % (Auto) 0.2 % Neut # (Auto) 4.09 (1.4-6.5) K/uL Lymph # (Auto) 1.03 L (1.2-3.4) K/uL [place] # (Auto) 0.52 (0.11-0.59) K/uL Eos # (Auto) 0.16 (0-0.5) K/uL Baso # (Auto) 0.01 (0-0.2) K/uL Immature Gran # (Auto) 0.03 H (0.00-0.02) K/uL PT 11.4 (9.0-12.0) Seconds INR 1.1 (0.9-1.1) Sodium 134 L (136-145) mmol/L Potassium 4.5 (3.5-5.1) mmol/L Chloride 104 (98-107) mmol/L Carbon Dioxide 25 (21-32) mmol/L Anion Gap 5.0 (3-11) BUN 15 (7-18) mg/dl Creatinine 0.97 (0.6-1.4) mg/dl Est Cr Clr Drug Dosing 112.1 ml/min Est GFR ( Amer) 95.9 Est GFR (Non-Af Amer) 82.7 BUN/Creatinine Ratio 15.9 (10-20) Glucose 257 H (70-99) mg/dl Calcium 8.4 L (8.5-10.1) mg/dl Magnesium 1.9 (1.8-2.4) mg/dl Total Bilirubin 0.3 (0.2-1) mg/dl Direct Bilirubin 0.1 (0-0.2) mg/dl AST 29 (15-37) U/L ALT 32 (12-78) U/L Alkaline Phosphatase 173 H (45-117) U/L Troponin I < 0.015 (0-0.045) ng/ml Total Protein 7.7 (6.4-8.2) gm/dl Albumin 3.1 L (3.4-5.0) gm/dl Lipase 95 (73-393) U/L Urine Color Urine Appearance (Clear) Urine pH (4.5-7.5) Ur Specific [place] (1.000-1.030) Urine Protein (Negative) Urine Glucose (UA) (Negative) Urine Ketones (Negative) Urine Blood (Negative) Urine Nitrite (Negative) Urine Bilirubin (Negative) Urine Urobilinogen (Negative) Ur Leukocyte Esterase (Negative) Urine RBC (0-4) /hpf Urine WBC (0-5) /hpf Ur Epithelial Cells (0-5) /lpf Calcium Oxalate Crystal (None Prsent) Urine Bacteria (Negative) Urine Opiates Screen (Neg) Ur Methadone, Qual (Neg) Urine Barbiturates (Neg) Ur Phencyclidine (PCP) (Neg) U Amphetamin/Meth Scrn (Neg) MDMA (Ecstasy) Screen (Neg) U Benzodiazepines Scrn (Neg) Ur Cocaine Metabolite (Neg) U Marijuana (THC) Screen (Neg) Ethyl Alcohol mg/dL (0-3) mg/dl 12/12/19 12/12/19 12/12/19 Range/Units 03:05 05:00 05:00 WBC (4.8-10.8) K/uL RBC (4.7-6.1) M/uL Hgb (14.0-18.0) g/dL Hct (42-52) % MCV (80-100) fL MCH (25-34) pg MCHC (32-36) g/dL RDW Std Deviation (36.4-46.3) fL RDW Coeff of Madelyn (11.5-14.5) % Plt Count (130-400) K/uL MPV (7.4-10.4) fL Immature Gran % (Auto) % Neut % (Auto) % Lymph % (Auto) % [place] % (Auto) % Eos % (Auto) % Baso % (Auto) % Neut # (Auto) (1.4-6.5) K/uL Lymph # (Auto) (1.2-3.4) K/uL [place] # (Auto) (0.11-0.59) K/uL Eos # (Auto) (0-0.5) K/uL Baso # (Auto) (0-0.2) K/uL Immature Gran # (Auto) (0.00-0.02) K/uL PT (9.0-12.0) Seconds INR (0.9-1.1) Sodium (136-145) mmol/L Potassium (3.5-5.1) mmol/L Chloride (98-107) mmol/L Carbon Dioxide (21-32) mmol/L Anion Gap (3-11) BUN (7-18) mg/dl Creatinine (0.6-1.4) mg/dl Est Cr Clr Drug Dosing ml/min Est GFR ( Amer) Est GFR (Non-Af Amer) BUN/Creatinine Ratio (10-20) Glucose (70-99) mg/dl Calcium (8.5-10.1) mg/dl Magnesium (1.8-2.4) mg/dl Total Bilirubin (0.2-1) mg/dl Direct Bilirubin (0-0.2) mg/dl AST (15-37) U/L ALT (12-78) U/L Alkaline Phosphatase (45-117) U/L Troponin I (0-0.045) ng/ml Total Protein (6.4-8.2) gm/dl Albumin (3.4-5.0) gm/dl Lipase (73-393) U/L Urine Color Yellow Urine Appearance Clear (Clear) Urine pH 5.0 (4.5-7.5) Ur Specific [place] 1.025 (1.000-1.030) Urine Protein Negative (Negative) Urine Glucose (UA) 1+ H (Negative) Urine Ketones Negative (Negative) Urine Blood 1+ H (Negative) Urine Nitrite Negative (Negative) Urine Bilirubin Negative (Negative) Urine Urobilinogen Negative (Negative) Ur Leukocyte Esterase Negative (Negative) Urine RBC 0-4 (0-4) /hpf Urine WBC 0-5 (0-5) /hpf Ur Epithelial Cells 0-5 (0-5) /lpf Calcium Oxalate Crystal Present A (None Prsent) Urine Bacteria Negative (Negative) Urine Opiates Screen Pos H (Neg) Ur Methadone, Qual Neg (Neg) Urine Barbiturates Neg (Neg) Ur Phencyclidine (PCP) Neg (Neg) U Amphetamin/Meth Scrn Neg (Neg) MDMA (Ecstasy) Screen Neg (Neg) U Benzodiazepines Scrn Neg (Neg) Ur Cocaine Metabolite Neg (Neg) U Marijuana (THC) Screen Pos H (Neg) Ethyl Alcohol mg/dL < 3.0 (0-3) mg/dl Administered Medications Discontinued Medications Nitroglycerin (Nitrostat) 0.4 mg SL NOW STA Stop: 12/12/19 04:50 Last Admin: 12/12/19 05:22 Dose: 0.4 mg Documented by: [id number] Ondansetron HCl (Zofran) 4 mg IV NOW STA Stop: 12/12/19 05:37 Last Admin: 12/12/19 05:47 Dose: 4 mg Documented by: [id number] Discharge Plan Visit Data *Final* Discharge Date/Time: 12/12/19 06:52 Chief Complaint: Altered Mental Status Stated Complaint: ALTERED MENTAL STATUS/CHEST PAIN Other Complaint: Chest Pain ED Provider: Aleks Palacios Discharge Problem: Altered mental status, Chest pain, Shortness of breath Patient Disposition: Admitted As Inpatient Discharge Instructions Interventions: ED Discharge Assessment Last Done: 12/12/19 06:52 Discharge Problem: Altered mental status Qualifiers: Altered mental status type: disorientation Qualified Code(s): R41.0 - Disorientation, unspecified Chest pain Qualifiers: Chest pain type: unspecified Qualified Code(s): R07.9 - Chest pain, unspecified
[2019-12-12 03:29] LABS: Basophils # (auto) 0.01 K/uL (0-0.2); Basophils % (auto) 0.2 %; Eosinophils # (auto) 0.16 K/uL (0-0.5); Eosinophils % (auto) 2.7 %; Hematocrit (blood only) 38.3 % (42-52); Hemoglobin 12.6 g/dL (14.0-18.0); Immature Granulocytes # (auto) 0.03 K/uL (0.00-0.02); Immature Granulocytes % (auto) 0.5 %; Lymphocytes # (auto) 1.03 K/uL (1.2-3.4); Lymphocytes % (auto) 17.6 %; Mean Corpuscular Hemoglobin 28.7 pg (25-34); Mean Corpuscular Hgb Conc 32.9 g/dL (32-36); Mean Corpuscular Volume 87.2 fL (80-100); Mean Platelet Volume 11.6 fL (7.4-10.4); Monocytes # (auto) 0.52 K/uL (0.11-0.59); Monocytes % (auto) 8.9 %; Neutrophils # (auto) 4.09 K/uL (1.4-6.5); Neutrophils % (auto) 70.1 %; Platelet Count 126 K/uL (130-400); RDW Coefficient of Variation 13.8 % (11.5-14.5); RDW Standard Deviation 44.1 fL (36.4-46.3); Red Blood Count 4.39 M/uL (4.7-6.1); White Blood Count 5.84 K/uL (4.8-10.8)
[2019-12-12 03:36] LABS: INR 1.1 (0.9-1.1); Prothrombin Time 11.4 Seconds (9.0-12.0)
[2019-12-12 03:50] LABS: Alanine Aminotransferase 32 U/L (12-78); Albumin Level 3.1 gm/dl (3.4-5.0); Aspartate Aminotransferase 29 U/L (15-37); BUN Creatinine Ratio 15.9 (10-20); Bilirubin Direct 0.1 mg/dl (0-0.2); Blood Urea Nitrogen 15 mg/dl (7-18); Calcium 8.4 mg/dl (8.5-10.1); Carbon Dioxide 25 mmol/L (21-32); Chloride 104 mmol/L (98-107); Creatinine Clr Calc Pharmacy 112.1 ml/min; Est GFR (African American) 95.9; Est GFR (Non-African American) 82.7; Glucose 257 mg/dl (70-99); Lipase 95 U/L (73-393); Magnesium 1.9 mg/dl (1.8-2.4); Potassium 4.5 mmol/L (3.5-5.1); Sodium 134 mmol/L (136-145)
[2019-12-12 03:56] LABS: Alkaline Phosphatase 173 U/L (45-117); Bilirubin,Total 0.3 mg/dl (0.2-1); Total Protein 7.7 gm/dl (6.4-8.2); Troponin I < 0.015 ng/ml (0-0.045)
[2019-12-12] MEDS: NITROGLYCERIN SL 0.4 MG/TAB TAB SL STA ×2 (05:04→05:22)
[2019-12-12] MEDS: ASPIRIN 81 MG CHEW PO STA ×2 (05:04→07:14)
[2019-12-12 05:25] LABS: Appearance Urine Clear (Clear); Bilirubin Urine Negative (Negative); Blood Urine 1+ (Negative); Color Urine Yellow; Glucose Urine UA 1+ (Negative); Ketones Urine Negative (Negative); Leukocyte Esterase Urine Negative (Negative); Nitrite Urine Negative (Negative); Protein Urine Negative (Negative); Specific Gravity Urine 1.025 (1.000-1.030); Urobilinogen Urine Negative (Negative)
[2019-12-12 05:34] LABS: Bacteria Urine Negative (Negative); Calcium Oxalate Crystals Urine Present (None Prsent); Epithelial Cell Urine 0-5 /lpf (0-5); RBC Urine 0-4 /hpf (0-4); WBC Urine 0-5 /hpf (0-5)
[2019-12-12] MEDS ORDERED: ONDANSETRON INJ 2 MG/ML 2 ML VIAL IV STA (05:36)
[2019-12-12 05:45] LABS: Amphetamines+Metham, Urine Neg (Neg); Barbiturates, Urine Neg (Neg); Benzodiazepine, Urine Neg (Neg); Cocaine, Urine Neg (Neg); MDMA (Ecstacy), Urine Neg (Neg); Methadone, Urine Neg (Neg); Opiate, Urine Pos (Neg); Phencyclidine, Urine Neg (Neg)
--- NOTE | 2019-12-12 06:22 | CT Scan Report ---
CT head/brain wo con CT DOSE: 687.98 mGy.cm HISTORY: Mental status change mental status change TECHNIQUE: Multiaxial CT images of the head were performed without the use of intravenous contrast. A dose lowering technique was utilized adhering to the principles of ALARA. Comparison: 11/27/2016 Findings: The paranasal sinuses and mastoid air cells are clear. The calvarium and skull base are int act. The ventricles and sulci are within normal limits. There is no mass, hematoma, midline shift, or acute infarct. Impression: No acute intracranial abnormality. Age-related atrophy and chronic small vessel change ACT 112: Negative or not required by law. The above report was generated using voice recognition software. It may contain grammatical, syntax or spelling errors. Electronically signed by: Jordan Bojorquez M.D. 12/12/2019 6:21 AM
--- NOTE | 2019-12-12 06:46 | XRay Report ---
XR chest 1V portable CLINICAL HISTORY: Atypical chest pain, shortness of breath. Change in mental status. COMPARISON STUDY: November 27, 2016 FINDINGS: The heart is at the upper limits of normal in size. There is mild vascular prominence witho ut evidence of overt failure. There is no lobar consolidation. Increased markings the left lung base with nonspecific are likely atelectatic.[ IMPRESSION: 1. No evidence of lobar consolidation 2. Mild vascular prominence without evidence of overt failure 3. Minor left basilar densities statistically atelectatic ACT 112: Negative or not required by law. Electronically signed by: Basilio Darnell M.D. 12/12/2019 6:44 AM
[2019-12-12] MEDS ORDERED: ACETAMINOPHEN 325 MG TAB PO PRN (07:06)
[2019-12-12] MEDS ORDERED: NITROGLYCERIN SL 0.4 MG/TAB TAB SL PRN (07:06)
[2019-12-12] MEDS ORDERED: OXYCODONE HCL IR 5 MG TAB (IMMEDIATE RELEASE) PO PRN (07:06)
[2019-12-12] MEDS ORDERED: ONDANSETRON INJ 2 MG/ML 2 ML VIAL IV PRN (07:06)
[2019-12-12 07:47] LABS: Base Excess ABG 1.1 mEq/L (-9-1.8); HCO3 ABG 27 mmol/L (19-24); Oxygen Saturation ABG 95.4 % (90-95); PCO2 ABG 46 mmHg (35-46); PO2 ABG 77 mmHg (80-95); pH ABG 7.38 (7.35-7.45)
[2019-12-12 07:48] LABS: Allen Test Pos (Pos)
[2019-12-12] MEDS: HEPARIN SOD 5,000 UNIT/0.5 ML VIAL SQ SCH ×3 (07:59→20:44)
[2019-12-12] MEDS: INSULIN ASPART 100 UNITS/ML 3 ML PEN SC SCH ×4 (08:00→20:43)
[2019-12-12] MEDS: METOPROLOL SUCC 50MG EXT REL TAB PO SCH (08:01)
[2019-12-12] MEDS: PANTOprazole 40 MG TAB PO SCH ×2 (08:01→20:44)
[2019-12-12] MEDS: ASPIRIN 81 MG ECTAB PO SCH (08:01)
[2019-12-12] MEDS: LOSARTAN POTASSIUM 50 MG TAB PO SCH (08:01)
[2019-12-12] MEDS: DOCUSATE SODIUM 100 MG CAP PO SCH (08:01)
[2019-12-12] MEDS: ATORVASTATIN 20 MG TAB PO SCH (08:02)
[2019-12-12] MEDS: OXYCODONE HCL 15 MG TABCR (OXYCONTIN) PO SCH ×2 (08:04→20:43)
[2019-12-12] MEDS: PREGABALIN 75 MG CAP PO SCH ×3 (08:04→20:44)
--- NOTE | 2019-12-12 08:28 | History and Physical Report ---
DATE OF ADMISSION: 12/12/2019 CHIEF COMPLAINT: Chest pain and confusion. 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 He comes because of chest pain and confusion. The patient has prosthesis for his left below-knee amputation, but in the nighttime uses a walker. In the night, he woke up for going to bathroom, he went to bathroom and while coming back, he was complaining of chest pain. He was downstairs and his daughter and were upstairs. He came to the stairs and complained of chest pain and seemed confused and was brought into the ER. Initially he was somewhat somnolent when he came into the ER. CT of the head was unremarkable. All the labs were unremarkable. The patient woke up and he was given a dose of aspirin. He complains of chest pain and also pain in his legs. He has phantom pain and takes significant pain medications. He has sleep apnea, but since his amputation he is not using CPAP, not on oxygen at home. He says he has chest pressure like feeling, no radiation, also some nausea. Denies any shortness of breath, no cough. Has some headache. Vision is somewhat blurry. No earache, no runny nose, no sore throat. Smell is okay. Taste is not that great. No abdominal pain. Normal bowel and bladder movements. No rash seen. 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 ALLERGIES: KETOROLAC, TRAMADOL, CIPROFLOXACIN. PAST MEDICAL HISTORY: As mentioned above. PAST SURGICAL HISTORY: Left below-knee amputation, colonoscopy, cystoscopy, EGD with biopsies, exploration and treatment of the right and left knee joint, removal of the bladder tumor, tonsillectomy, adenoidectomy, bilateral revision of the joint replacement. MEDICATIONS: The patient is on oxycodone IR 15 mg p.o. q. 4 hours p.r.n., oxycodone ER 30 mg p.o. b.i.d., losartan 100 mg p.o. daily, Lantus 20 units under skin daily, pregabalin 225 mg p.o. t.i.d., metformin XR 1000 mg p.o. b.i.d., Zofran 4 mg t.i.d. p.r.n., Protonix 40 mg p.o. b.i.d., aspirin 81 mg p.o. daily, Toprol-XL 50 mg p.o. daily, atorvastatin 20 mg p.o. daily. FAMILY HISTORY: Significant for father had lung cancer; brother had repair of ventricular aneurysm; mother has hypertension, dementia, obesity. SOCIAL HISTORY: and lives with his . Former smoker, smoked half pack a day for 20 years. Alcohol 2 times a week. No drug use. REVIEW OF SYSTEMS: As per HPI. Rest of the review of systems negative. PHYSICAL EXAMINATION: GENERAL: The patient is morbidly obese, not in acute distress. VITAL SIGNS: Temperature 37.1, pulse 92, respiratory rate 20, blood pressure 140/81, oxygen 98% on 2 liters. HEENT: No pallor, no icterus. Extraocular muscles intact. Oral mucosa somewhat dry. NECK: No neck masses seen, supple. CARDIOVASCULAR: S1, S2 heard, regular rate and rhythm, no murmur, no gallop. RESPIRATORY SYSTEM: Normal AP diameter. No accessory muscle use. No wheezing, no crackles. ABDOMEN: Soft, bowel sounds present, nontender. No distention. CENTRAL NERVOUS SYSTEM: Alert and oriented. No facial droop. Speech is clear. Tongue is midline. Obeys simple commands but has generalized weakness and is having difficulty to raise his hands, but no pronator drift seen. Difficult to raise his lower extremity. When asked to do coordination of movements, he said he could not follow the commands. EXTREMITIES: Mild lower extremity edema present, no erythema seen. Left below-knee amputation. LABORATORY DATA: WBC 5.8, hemoglobin 12.6, hematocrit 38.3, platelets 126. PT 11.5, INR 1.1. Sodium 134, potassium 4.5, chloride 104, bicarbonate 25, BUN 15, creatinine 0.9, serum glucose 257, calcium 8.4, magnesium 1.9, total bilirubin 0.3, direct bilirubin 0.1, AST 25, ALT 32, alkaline phosphatase 173. Troponin I less than 0.015. Lipase 95. Urinalysis, +1 ketones. Urine drug screen positive for opiates and marijuana. Ethyl alcohol less than 3. IMAGING DATA: Chest x-ray, no acute findings seen. CT of the head, preliminary report, no acute findings. EKG: Normal sinus rhythm at rate of 94. No significant change was found. ASSESSMENT AND PLAN: This is a 64-year-old male who presents with chest pain and confusion. 1. Chest pain. Initial workup is negative. We will follow the serial enzymes, echo, monitor in tele floor. Keep him n.p.o. and consult cardiology for further 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s. 2. Confusion. Currently seems to be alert and oriented, but having some difficulty processing some of the commands. CT of the head is unremarkable. He has sleep apnea but does not use CPAP. Will get an ABG. He has some generalized weakness. Monitor closely. He is also on significant doses of narcotics. We will closely monitor. If necessary, we will get a neuro consult and MRI scan of the head. 4. Thrombocytopenia, his platelet count was found to be 126. We will closely follow the repeat labs. Etiology unclear at this time. 5. Anemia. Hemoglobin 12.6, seems to be at baseline. Follow the labs. 6. Sleep apnea, noncompliant with CPAP. We will do nocturnal pulse ox study. 7. Diabetes. Holding his metformin, cut back his Lantus to 10 units as the patient is currently n.p.o. Insulin sliding scale. Follow hemoglobin A1c levels. 8. Chronic pain, phantom pain following the amputation of lower legs. Will currently continue his home pain medications and if needed may need to cut back on his pain medications. 9. Gastroesophageal reflux disease. Continue PPI. 10. Hypertension. Continue his Cozaar, Toprol-XL. Question if the patient is on amlodipine. Will monitor. 11. Morbid obesity, need counseling. 12. Deep venous thrombosis prophylaxis, sequential compression devices for now and heparin subQ. DISPOSITION: Closely monitor in the tele floor. Level 1 full code. PT and OT prior to discharge. Social service to help with discharge planning. [email or web address]
[2019-12-12] MEDS ORDERED: LABETALOL HCL IV 5 MG/ML 20ML IV PRN (08:53)
[2019-12-12] MEDS ORDERED: INSULIN GLARGINE SOLOSTAR 100 UNITS/ML 3 ML PEN SC ONE (09:15)
--- NOTE | 2019-12-12 10:12 | Cardiology Consultation ---
Date of Consultation December 12, 2019 Assessment & Plan (1) Diabetes mellitus type 2 with complications: (2) Charcot's joint: (3) Amputation below knee: (4) Altered mental status: (5) Chest pain: I will review the echocardiogram that was completed this morning however, I do not believe any additional cardiac testing will be indicated. His cardiac markers are negative and his EKG is within normal limits. I am more concerned regarding his altered mental status and somnolence which is not completely cleared since admission. He is on pain medications including narcotics and according to family he has been taking some type of analgesics including opioids for many years. I think we should have neurology see him as well as pain management to help with his narcotics. Will reassess after the above. History of Present Illness Attending Physician: Irasema Maier MD History of Present Illness This is a 64-year-old patient who is arousable but somnolent in his room. His daughter is in the room with him and provides some good history and the rest of obtained from the chart. He has no significant cardiac history but has been a diabetic with multiple diabetic comorbidities. He has Charcot's joints and a diabetic left foot ulcer that resulted in an amputation proximately 1 to 2 weeks ago. The patient has been on chronic pain medications for joint pain for many years. He had bilateral knee replacements over a decade ago. He has a history of obesity and up until the time of his amputation was utilizing CPAP at night for sleep apnea. According to his daughter after his amputation he is not been utilizing his CPAP machine because it is too cumbersome. 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 Early this morning he got out of bed to use the bathroom and on the way back he became confused and told his family he was having chest pain. He was brought to the emergency department where he was more alert and oriented. He was admitted for observation and for chest pain rule out. His cardiac markers are negative and his EKG is within normal limits. According to the nursing staff and his daughter he is still not quite right. He remains somnolent. Allergies Allergy/AdvReac Type Severity Reaction Status Date / Time ketorolac Allergy Unknown BURNING Verified 12/12/19 03:19 SENSATION tramadol Allergy Unknown GI UPSET Verified 12/12/19 03:19 ciprofloxacin [From Cipro] AdvReac Intermediate upset Verified 12/12/19 03:19 stomach Home Medications Home Medications Medication Instructions Recorded Confirmed Type losartan 100 mg PO DAILY 04/21/18 12/12/19 History pantoprazole 40 mg PO BID 04/21/18 12/12/19 History metoprolol succinate 50 mg PO DAILY 11/28/18 12/12/19 History Lyrica 225 mg PO TID 12/12/19 12/12/19 History aspirin [Bryson Chewable Aspirin] 81 mg PO DAILY 12/12/19 12/12/19 History atorvastatin 20 mg PO DAILY 12/12/19 12/12/19 History docusate sodium [Stool Softener] 100 mg PO DAILY 12/12/19 12/12/19 History insulin glargine [Lantus Solostar 20 unit SUBCUT DAILY 12/12/19 12/12/19 History U-100 Insulin] metformin 1,000 mg PO BID 12/12/19 12/12/19 History ondansetron 4 mg TRANSLINGUAL Q8 PRN 12/12/19 12/12/19 History oxycodone 15 mg PO Q4H PRN 12/12/19 12/12/19 History oxycodone [OxyContin] 30 mg PO BID 12/12/19 12/12/19 History Patient History Medical History Acquired claw toe of left foot (Acute) Anxiety (Chronic) Callus (Acute) Charcot's joint of right foot (Acute) Charcot's joint, left ankle and foot (Acute) Chronic pain (Chronic) Chronic ulcer of left midfoot (Acute) Depression (Chronic) Diabetes mellitus with diabetic polyneuropathy (Acute) DMII (diabetes mellitus, type 2) (Chronic) GERD (gastroesophageal reflux disease) (Chronic) HTN (hypertension) (Chronic) Morbid obesity due to excess calories (Chronic) Multiple rib fractures involving four or more ribs (Resolved) OA (osteoarthritis) of knee (Chronic) ENRIQUE (obstructive sleep apnea) (Chronic) Smoker (Chronic) Surgical History H/O knee surgery (Chronic) History of bilateral knee replacement (Chronic) S/P trigger finger release (Chronic) Family History Father Lung cancer Mother Hypertension Dementia Social History Smoking Status: Current every day smoker Tobacco Type: Cigarettes Cigarettes Per Day: 20; Second Hand Exposure: No; Hx Alcohol Use: Yes Alcohol type: beer Hx Substance Use: No Preferred Language: Hebrew Communication Ability: Effective Caul Dresser Required: No Beliefs That Will Affect Care: None marital status: Current Living Situation: Family Other Information That Helps Us Care for You: No Feels Safe at Home: Yes Safety Concerns: Feels Safe At This Time Review of Systems Review of Systems: Unobtainable due to reduced consciousness Physical Exam Physical Exam: General: no acute distress and stated age Head: normocephalic, no masses, lesions, tenderness or abnormalities Eyes: conjunctiva are pink and non-injected, sclera clear Neck: supple, no adenopathy, no bruits, normal jugular venous pulse, no hepatojugular reflux Chest: normal shape and normal respiratory effort Lungs: clear to auscultation and percussion Cardiac Exam: - regular rate & rhythm, no murmurs gallops or rubs - normal S1, normal S2 Pulses: 2(+) throughout Abdomen: abdomen soft, non-tender, no abnormal masses and no hepatosplenomegaly Musculoskeletal: no gait disturbance, no joint inflammation, no deforming arthritis Extremities: Left below the knee amputation Neuro: grossly normal exam Results & Data ([facility]) Vital Signs (Past 12 Hours) Vital Signs Temp Pulse Pulse Resp BP BP Pulse Ox 12/12/19 07:06 103 H 12/12/19 06:52 102 H 18 174/71 H 99 12/12/19 06:45 36.7 C 97 H 18 155/78 H 98 12/12/19 06:15 91 H 24 174/71 H 99 12/12/19 05:26 92 H 20 140/81 98 12/12/19 04:00 97 H 18 148/84 H 12/12/19 03:30 102 H 20 153/63 H 96 12/12/19 03:05 37.1 C 107 H 20 145/78 H 94 Laboratory Results Laboratory Results - last 24 hr 12/12/19 12/12/19 12/12/19 03:05 03:05 03:05 WBC 5.84 RBC 4.39 L Hgb 12.6 L Hct 38.3 L MCV 87.2 MCH 28.7 MCHC 32.9 RDW Std Deviation 44.1 RDW Coeff of Madelyn 13.8 Plt Count 126 L MPV 11.6 H Immature Gran % (Auto) 0.5 Neut % (Auto) 70.1 Lymph % (Auto) 17.6 Iron % (Auto) 8.9 Eos % (Auto) 2.7 Baso % (Auto) 0.2 Neut # (Auto) 4.09 Lymph # (Auto) 1.03 L Iron # (Auto) 0.52 Eos # (Auto) 0.16 Baso # (Auto) 0.01 Immature Gran # (Auto) 0.03 H PT 11.4 INR 1.1 ABG pH ABG pCO2 ABG pO2 ABG HCO3 ABG O2 Saturation ABG Base Excess Frank Test Barometric Pressure Oxygen Given Sodium 134 L Potassium 4.5 Chloride 104 Carbon Dioxide 25 Anion Gap 5.0 BUN 15 Creatinine 0.97 Est Cr Clr Drug Dosing 112.1 Est GFR ( Amer) 95.9 Est GFR (Non-Af Amer) 82.7 BUN/Creatinine Ratio 15.9 Glucose 257 H POC Glucose Calcium 8.4 L Magnesium 1.9 Total Bilirubin 0.3 Direct Bilirubin 0.1 AST 29 ALT 32 Alkaline Phosphatase 173 H Troponin I < 0.015 Total Protein 7.7 Albumin 3.1 L Lipase 95 Urine Color Urine Appearance Urine pH Ur Specific [place] Urine Protein Urine Glucose (UA) Urine Ketones Urine Blood Urine Nitrite Urine Bilirubin Urine Urobilinogen Ur Leukocyte Esterase Urine RBC Urine WBC Ur Epithelial Cells Calcium Oxalate Crystal Urine Bacteria Urine Opiates Screen U Codeine Confrm GC/MS Ur Morphine (GC/MS) Ur Hydrocodone (GC/MS) Ur Norhydrocodone Ur Noroxycodone Urine Oxycodone (GC/MS) U Oxymorphone GC/MS Ur Methadone, Qual Ur Hydromorphone (GC/MS) Urine Barbiturates Ur Phencyclidine (PCP) U Amphetamin/Meth Scrn MDMA (Ecstasy) Screen U Benzodiazepines Scrn Ur Cocaine Metabolite U Marijuana (THC) Screen U Marijuana THC Carboxy Drug Screen Comment Ethyl Alcohol mg/dL 12/12/19 12/12/19 12/12/19 03:05 05:00 05:00 WBC RBC Hgb Hct MCV MCH MCHC RDW Std Deviation RDW Coeff of Madelyn Plt Count MPV Immature Gran % (Auto) Neut % (Auto) Lymph % (Auto) Iron % (Auto) Eos % (Auto) Baso % (Auto) Neut # (Auto) Lymph # (Auto) Iron # (Auto) Eos # (Auto) Baso # (Auto) Immature Gran # (Auto) PT INR ABG pH ABG pCO2 ABG pO2 ABG HCO3 ABG O2 Saturation ABG Base Excess Frank Test Barometric Pressure Oxygen Given Sodium Potassium Chloride Carbon Dioxide Anion Gap BUN Creatinine Est Cr Clr Drug Dosing Est GFR ( Amer) Est GFR (Non-Af Amer) BUN/Creatinine Ratio Glucose POC Glucose Calcium Magnesium Total Bilirubin Direct Bilirubin AST ALT Alkaline Phosphatase Troponin I Total Protein Albumin Lipase Urine Color Yellow Urine Appearance Clear Urine pH 5.0 Ur Specific [place] 1.025 Urine Protein Negative Urine Glucose (UA) 1+ H Urine Ketones Negative Urine Blood 1+ H Urine Nitrite Negative Urine Bilirubin Negative Urine Urobilinogen Negative Ur Leukocyte Esterase Negative Urine RBC 0-4 Urine WBC 0-5 Ur Epithelial Cells 0-5 Calcium Oxalate Crystal Present A Urine Bacteria Negative Urine Opiates Screen Pos H U Codeine Confrm GC/MS Ur Morphine (GC/MS) Ur Hydrocodone (GC/MS) Ur Norhydrocodone Ur Noroxycodone Urine Oxycodone (GC/MS) U Oxymorphone GC/MS Ur Methadone, Qual Neg Ur Hydromorphone (GC/MS) Urine Barbiturates Neg Ur Phencyclidine (PCP) Neg U Amphetamin/Meth Scrn Neg MDMA (Ecstasy) Screen Neg U Benzodiazepines Scrn Neg Ur Cocaine Metabolite Neg U Marijuana (THC) Screen Pos H U Marijuana THC Carboxy Drug Screen Comment Ethyl Alcohol mg/dL < 3.0 12/12/19 12/12/19 12/12/19 05:00 07:26 07:26 WBC RBC Hgb Hct MCV MCH MCHC RDW Std Deviation RDW Coeff of Madelyn Plt Count MPV Immature Gran % (Auto) Neut % (Auto) Lymph % (Auto) Iron % (Auto) Eos % (Auto) Baso % (Auto) Neut # (Auto) Lymph # (Auto) Iron # (Auto) Eos # (Auto) Baso # (Auto) Immature Gran # (Auto) PT INR ABG pH 7.38 ABG pCO2 46 ABG pO2 77 L ABG HCO3 27 H ABG O2 Saturation 95.4 H ABG Base Excess 1.1 Frank Test Pos Barometric Pressure 732.0 Oxygen Given ROOM AIR Sodium Potassium Chloride Carbon Dioxide Anion Gap BUN Creatinine Est Cr Clr Drug Dosing Est GFR ( Amer) Est GFR (Non-Af Amer) BUN/Creatinine Ratio Glucose POC Glucose Calcium Magnesium Total Bilirubin Direct Bilirubin AST ALT Alkaline Phosphatase Troponin I < 0.015 Total Protein Albumin Lipase Urine Color Urine Appearance Urine pH Ur Specific [place] Urine Protein Urine Glucose (UA) Urine Ketones Urine Blood Urine Nitrite Urine Bilirubin Urine Urobilinogen Ur Leukocyte Esterase Urine RBC Urine WBC Ur Epithelial Cells Calcium Oxalate Crystal Urine Bacteria Urine Opiates Screen U Codeine Confrm GC/MS Pending Ur Morphine (GC/MS) Pending Ur Hydrocodone (GC/MS) Pending Ur Norhydrocodone Pending Ur Noroxycodone Pending Urine Oxycodone (GC/MS) Pending U Oxymorphone GC/MS Pending Ur Methadone, Qual Ur Hydromorphone (GC/MS) Pending Urine Barbiturates Ur Phencyclidine (PCP) U Amphetamin/Meth Scrn MDMA (Ecstasy) Screen U Benzodiazepines Scrn Ur Cocaine Metabolite U Marijuana (THC) Screen U Marijuana THC Carboxy Pending Drug Screen Comment Pending Ethyl Alcohol mg/dL 12/12/19 07:33 WBC RBC Hgb Hct MCV MCH MCHC RDW Std Deviation RDW Coeff of Madelyn Plt Count MPV Immature Gran % (Auto) Neut % (Auto) Lymph % (Auto) Iron % (Auto) Eos % (Auto) Baso % (Auto) Neut # (Auto) Lymph # (Auto) Iron # (Auto) Eos # (Auto) Baso # (Auto) Immature Gran # (Auto) PT INR ABG pH ABG pCO2 ABG pO2 ABG HCO3 ABG O2 Saturation ABG Base Excess Frank Test Barometric Pressure Oxygen Given Sodium Potassium Chloride Carbon Dioxide Anion Gap BUN Creatinine Est Cr Clr Drug Dosing Est GFR ( Amer) Est GFR (Non-Af Amer) BUN/Creatinine Ratio Glucose POC Glucose 141 H Calcium Magnesium Total Bilirubin Direct Bilirubin AST ALT Alkaline Phosphatase Troponin I Total Protein Albumin Lipase Urine Color Urine Appearance Urine pH Ur Specific [place] Urine Protein Urine Glucose (UA) Urine Ketones Urine Blood Urine Nitrite Urine Bilirubin Urine Urobilinogen Ur Leukocyte Esterase Urine RBC Urine WBC Ur Epithelial Cells Calcium Oxalate Crystal Urine Bacteria Urine Opiates Screen U Codeine Confrm GC/MS Ur Morphine (GC/MS) Ur Hydrocodone (GC/MS) Ur Norhydrocodone Ur Noroxycodone Urine Oxycodone (GC/MS) U Oxymorphone GC/MS Ur Methadone, Qual Ur Hydromorphone (GC/MS) Urine Barbiturates Ur Phencyclidine (PCP) U Amphetamin/Meth Scrn MDMA (Ecstasy) Screen U Benzodiazepines Scrn Ur Cocaine Metabolite U Marijuana (THC) Screen U Marijuana THC Carboxy Drug Screen Comment Ethyl Alcohol mg/dL Medications Administered Current Inpatient Medications Acetaminophen (Tylenol) 650 mg PO Q4H PRN PRN Reason: Pain or Fever Stop: 01/11/20 07:05 Aspirin (Ecotrin Ectab) 81 mg PO DAILY [facility] Stop: 01/11/20 08:59 Last Admin: 12/12/19 08:01 Dose: 81 mg Documented by: Atorvastatin Calcium (Lipitor) 20 mg PO DAILY [facility] Stop: 01/11/20 08:59 Last Admin: 12/12/19 08:02 Dose: 20 mg Documented by: Docusate Sodium (Colace) 100 mg PO DAILY [facility] Stop: 01/11/20 08:59 Last Admin: 12/12/19 08:01 Dose: 100 mg Documented by: Heparin Sodium (Porcine) (Heparin Sodium (Porcine)) 5,000 units SQ Q8 [facility] Stop: 01/11/20 07:29 Last Admin: 12/12/19 07:59 Dose: 5,000 units Documented by: Insulin Aspart (Novolog Flexpen) 0 units SC ACHS [facility] Stop: 01/11/20 07:29 Last Admin: 12/12/19 08:00 Dose: Not Given Documented by: Insulin Glargine (Lantus Solostar Pen) 10 units SC DAILY [facility] Stop: 01/12/20 08:59 Labetalol HCl (Normodyne) 5 mg IV Q6H PRN PRN Reason: for SBP above 170 Stop: 01/11/20 08:52 Losartan Potassium (Cozaar) 100 mg PO DAILY [facility] Stop: 01/11/20 08:59 Last Admin: 12/12/19 08:01 Dose: 100 mg Documented by: Metoprolol Succinate (Toprol Xl) 50 mg PO DAILY [facility] Stop: 01/11/20 08:59 Last Admin: 12/12/19 08:01 Dose: 50 mg Documented by: Nitroglycerin (Nitrostat) 0.4 mg SL UD PRN PRN Reason: Chest Pain Stop: 01/11/20 07:05 Ondansetron HCl (Zofran) 4 mg IV Q6H PRN PRN Reason: Nausea Stop: 01/11/20 07:05 Oxycodone HCl (Roxicodone Immediate Rel) 15 mg PO Q4H PRN PRN Reason: Pain Stop: 12/26/19 07:05 Last Admin: 12/12/19 08:00 Dose: 15 mg Documented by: Oxycodone HCl (Oxycontin) 30 mg PO BID [facility] Stop: 12/26/19 08:59 Last Admin: 12/12/19 08:04 Dose: 30 mg Documented by: Pantoprazole Sodium (Protonix) 40 mg PO BID [facility] Stop: 01/11/20 08:59 Last Admin: 12/12/19 08:01 Dose: 40 mg Documented by: Pregabalin (Lyrica) 225 mg PO TID [facility] Stop: 01/11/20 08:59 Last Admin: 12/12/19 08:04 Dose: 225 mg Documented by: (1) Altered mental status Altered mental status type: disorientation Qualified Code(s): R41.0 - Disorientation, unspecified (2) Chest pain Chest pain type: unspecified Qualified Code(s): R07.9 - Chest pain, unspecified
[2019-12-12] MEDS ORDERED: OXYMETAZOLINE 0.05% 30 ML BTL PRN (15:44)
[2019-12-12] MEDS: OXYCODONE HCL IR 5 MG TAB (IMMEDIATE RELEASE) PO PRN ×2 (15:55→21:57)
[2019-12-12] MEDS ORDERED: PNEUMOCOCCAL Polysaccharide Vaccine 25mcg/0.5mL vial/Syr IM ONE (16:00)
--- NOTE | 2019-12-12 17:55 | Communication Note ---
Date of Service: December 12, 2019 I saw Timothy flores today at the request of Dr. Moura and Livier and find him to be a little encephalopathic and to be complaining of generalized weakness and seemingly unable or unwilling to put forth a maximum effort in his arms and right leg and neck but has intact cranial nerves and no clear-cut signs of a myelopathy and only a significant neuropathy which is a known entity. I do not see any mild clonus or other abnormal involuntary movements which might be expected with his chronic use of narcotics We are going to do an MRI of the brain just to be sure there were not multiple emboli or more intracranial injury due to the fall with possible head injury that occurred when he was in the bathroom also going to a cervical spine MRI as apparently his is reported more than 1 fall and there is concern on her part and I think this is justified that he might of had a spinal cord injury His EEG shows mild generalized slowing only and this is minimal I will check back tomorrow. A full consult has been dictated will be corrected later. Enrique Banegas MD
--- NOTE | 2019-12-12 18:00 | Electroencephalogram ---
EEG Procedure Note Date of Service December 12, 2019 Start / End Times Start Time: 0138 End Time: 015 Referring Physician Enrique Banegas MD History Confusion and disorientation now clearing after apparent fall at home question seizure disorder, nonconvulsive seizure activity etc. Home Medication List Home Medications Medication Instructions Recorded Confirmed Type losartan 100 mg PO DAILY 04/21/18 12/12/19 History pantoprazole 40 mg PO BID 04/21/18 12/12/19 History metoprolol succinate 50 mg PO DAILY 11/28/18 12/12/19 History Lyrica 225 mg PO TID 12/12/19 12/12/19 History aspirin [Bryson Chewable Aspirin] 81 mg PO DAILY 12/12/19 12/12/19 History atorvastatin 20 mg PO DAILY 12/12/19 12/12/19 History docusate sodium [Stool Softener] 100 mg PO DAILY 12/12/19 12/12/19 History insulin glargine [Lantus Solostar 20 unit SUBCUT DAILY 12/12/19 12/12/19 History U-100 Insulin] metformin 1,000 mg PO BID 12/12/19 12/12/19 History ondansetron 4 mg TRANSLINGUAL Q8 PRN 12/12/19 12/12/19 History oxycodone 15 mg PO Q4H PRN 12/12/19 12/12/19 History oxycodone [OxyContin] 30 mg PO BID 12/12/19 12/12/19 History Inpatient Medication List Aspirin (Ecotrin Ectab) 81 mg PO DAILY [facility] Stop: 01/11/20 08:59 Last Admin: 12/12/19 08:01 Dose: 81 mg Documented by: [id number] Atorvastatin Calcium (Lipitor) 20 mg PO DAILY [facility] Stop: 01/11/20 08:59 Last Admin: 12/12/19 08:02 Dose: 20 mg Documented by: [id number] Docusate Sodium (Colace) 100 mg PO DAILY [facility] Stop: 01/11/20 08:59 Last Admin: 12/12/19 08:01 Dose: 100 mg Documented by: [id number] Heparin Sodium (Porcine) (Heparin Sodium (Porcine)) 5,000 units SQ Q8 [facility] Stop: 01/11/20 07:29 Last Admin: 12/12/19 13:39 Dose: 5,000 units Documented by: [id number] Cosigned by: [id number] Admin: 12/12/19 07:59 Dose: 5,000 units Documented by: [id number] Cosigned by: [id number] Insulin Aspart (Novolog Flexpen) 0 units SC ACHS [facility] Stop: 01/11/20 07:29 Last Admin: 12/12/19 17:25 Dose: Not Given Documented by: [id number] Cosigned by: [id number] Admin: 12/12/19 12:25 Dose: Not Given Documented by: [id number] Cosigned by: [id number] Admin: 12/12/19 08:00 Dose: Not Given Documented by: [id number] Cosigned by: [id number] Losartan Potassium (Cozaar) 100 mg PO DAILY [facility] Stop: 01/11/20 08:59 Last Admin: 12/12/19 08:01 Dose: 100 mg Documented by: [id number] Metoprolol Succinate (Toprol Xl) 50 mg PO DAILY [facility] Stop: 01/11/20 08:59 Last Admin: 12/12/19 08:01 Dose: 50 mg Documented by: [id number] Oxycodone HCl (Oxycontin) 30 mg PO BID [facility] Stop: 12/26/19 08:59 Last Admin: 12/12/19 08:04 Dose: 30 mg Documented by: [id number] Oxycodone HCl (Roxicodone Immediate Rel) 15 mg PO Q6H PRN PRN Reason: Pain Stop: 12/26/19 15:46 Last Admin: 12/12/19 15:55 Dose: 15 mg Documented by: [id number] Pantoprazole Sodium (Protonix) 40 mg PO BID [facility] Stop: 01/11/20 08:59 Last Admin: 12/12/19 08:01 Dose: 40 mg Documented by: [id number] Pregabalin (Lyrica) 225 mg PO TID [facility] Stop: 01/11/20 08:59 Last Admin: 12/12/19 13:40 Dose: Not Given Documented by: [id number] Admin: 12/12/19 08:04 Dose: 225 mg Documented by: [id number] Discontinued Medications Aspirin (Aspirin Chew) 324 mg PO NOW STA Stop: 12/12/19 04:49 Last Admin: 12/12/19 07:14 Dose: Not Given Documented by: [id number] Insulin Glargine (Lantus Solostar Pen) 7 units SC NOW ONE Stop: 12/12/19 09:16 Last Admin: 12/12/19 10:05 Dose: 7 units Documented by: [id number] Cosigned by: [id number] Nitroglycerin (Nitrostat) 0.4 mg SL NOW STA Stop: 12/12/19 04:50 Last Admin: 12/12/19 05:22 Dose: 0.4 mg Documented by: [id number] Ondansetron HCl (Zofran) 4 mg IV NOW STA Stop: 12/12/19 05:37 Last Admin: 12/12/19 05:47 Dose: 4 mg Documented by: [id number] Oxycodone HCl (Roxicodone Immediate Rel) 15 mg PO Q4H PRN PRN Reason: Pain Stop: 12/26/19 07:05 Last Admin: 12/12/19 08:00 Dose: 15 mg Documented by: [id number] Description This is a 21 electrode EEG with a single channel dedicated to limited EKG. The electrodes were placed in accordance with the International 10-20 system. This EEG was done at the bedside is of good technical quality with fewer no muscle movement artifacts. Simultaneous video recording of patient movement and behavior was obtained and photic stimulation was performed. Drowsiness and light sleep were not obtained. Under these conditions there is evidence for background rhythm in the upper theta range at 7 to 8 Hz and maximum frequency and of up to 15 to 20 V a maximum amplitude this maximum posterior head regions bilaterally symmetrical polymorphic mid to lower frequency theta activity of modest voltage is seen over the central regions in symmetrical fashion beta activity seen bifrontally ph otic stimulation provokes a modest driving response with no photo myogenic a photoparoxysmal component. Drowsiness light sleep were not obtained. At no time during the tracing is evidence for potentially epileptogenic activity Interpretation This EEG reveals evidence for very mild to minimal nonspecific generalized abnormalities consistent with an encephalopathy of indeterminant causation and without lateralizing features or associated potentially epileptiform activity Clinical Correlation EEG reveals evidence for minimal to mild generalized nonspecific encephalopathy and reveals no evidence for potentially epileptogenic activity or lateralized abnormalities Enrique Banegas MD
--- NOTE | 2019-12-12 18:58 | Communication Note ---
Date of Service: December 12, 2019 Pt was seen and examined. Lying in bed with no distress with at bedside Pt is awake but falling asleep while talking to him He said that he wants his oxycodone 15mg q4h Spoke to patient and about decreasing the oxycodone since he cannot keep his eyes opened Pt did not agree and started to get annoyed agreed for him to take his Oxycodone 15 mg even his a little drowsy Discussed with patient and about the risk of opioid such as respiratory distress, confused and unresponsive They understood the risks and continue to request his home dose of oxycodone Case discussed with Neuro that recommended to get a MRI brain and cervical spine Case discussed with Cardiology that felt his symptoms of chest pain is non cardiac Troponin x3 negative and Echo showed no wall motion abnormality Will continue monitor pt closely. MD Livier
--- NOTE | 2019-12-12 19:55 | Consultation Report ---
DATE OF CONSULTATION: 12/12/2019 CONSULTATION FOR: Robby Moura DO. ATTENDING PHYSICIAN: Irasema Maier MD. HISTORY OF PRESENT ILLNESS: Timothy is 64 years old, is right handed, is a patient of Dr. Karlie Bates and was admitted to the hospital yesterday, actually last night after he became confused and may have fallen in the bathroom and then had some chest pain and shortness of breath and suffered from generalized weakness and was unable to stand. He was quite somnolent. He was brought to the Emergency Room and has gradually improved during the day, but remains quite weak and is unable to move his neck according to what he tells me, he can barely move his arms and legs and his mental status is improving, but is not quite back to normal according to his who was in the room when I saw him. 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 Prior to this, he was using CPAP, but has stopped using it because it is too cumbersome. 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 He again complained of chest pain, but no cardiac markers have been positive. His EKG is within normal limits and the echocardiogram has been done, but has not yet been reviewed. MEDICATIONS His medications at home include losartan, pantoprazole, metoprolol, Lyrica 225 mg 3 times a day, aspirin, atorvastatin, docusate, insulin, metformin, ondansetron, oxycodone 15 mg every 4 hours as needed and OxyContin 30 mg twice a day. I am not sure that these latter medications represented dose increase or chronic narcotic use. It is unclear based on the history I can obtain from the and , but neither of them claim that his pain medications have been significantly increased. ALLERGIES: HE HAS ALLERGIES TO KETOROLAC, TRAMADOL, CIPRO. PAST SURGICAL HISTORY: Includes the knee surgery, the amputation, bilateral knee replacements and a trigger finger release. PAST MEDICAL HISTORY: Other problems include chronic anxiety, chronic calluses, Charcot joints, chronic pain, on pain contract, chronic depression, diabetes, GERD, hypertension, morbid obesity, multiple rib fractures in the past, osteoarthritis and obstructive sleep apnea, now not using the CPAP. According to his , there have been frequent falls at home, which were not recorded actually on the history and it is not clear whether he struck his head or has hurt his neck and the patient is a little vague about this one. SOCIAL HISTORY: Reveals him to be . 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 He does use alcohol in the form of beer. He smokes cigarettes, 20 per day. He has currently been recovering from his amputation and is no longer using his apnea device in the form of CPAP. PHYSICAL EXAMINATION: GENERAL: Examination reveals him to be alert, conversant but a little breathless and complaining of shortness of breath and generalized weakness. His memory for the events of yesterday is essentially 0. He has no cranial deformities. I do not hear any carotid bruits. Dr. Moura found no cardiac murmurs. He had good peripheral pulses. The left leg was amputated below the knee. The right foot appeared to have no significant deformities and could move, and there was a mild degree of peripheral edema. NEUROLOGIC: Examination was less than adequate. He was awake, alert, oriented in 3 spheres, had no gross cranial nerve abnormalities. No facial numbness, could protrude his tongue. Visual acuity was grossly intact as he could see the television and his across the room. He really had a lot of generalized weakness and much of this was giving way. I could not get him to sustain efforts to hold his arms out straight and he simply let them fall into his sides often. He did have some week hand sparmaker. Facility of rapid repetitive motions was normal. Reflexes were hypoactive, absent in the right ankle and right knee. Toe sign was downgoing. No Adam signs were seen and sensory examination of course revealed significant diabetic polyneuropathy with absent sensation to all modalities up to the knee and over the fingertips. I ordered an EEG today, which was essentially normal with the exception of some mild generalized slowing. He had a CAT scan done that is reported as showing no significant abnormalities. There is no evidence for skull fracture. Ventricles and sulci are normal. There is no mass, hematoma, midline shift, or acute infarction and no mention is made of significant leukoencephalopathy. Conclusion was that he has some small chronic white matter changes. ASSESSMENT AND PLAN: Dr. Maier and I discussed the case and also conferred with the patient's and I have elected to go ahead and do an MRI of the brain just to be sure he did not have some multiple embolic events or significant closed head injury that we might see on MRI and we are also going to do a cervical spine to be sure he did not have a cervical spine fracture or compromise due to rupture of an intervertebral disc after his frequent falls, but frankly I do not see much in the way of myelopathy. At this point, this appears to be a nonspecific encephalopathy. I am very suspicious about the high doses of Lyrica and the high doses of narcotics. I did ask for an ammonia level and we will await to see what comes of it and we will await to see what imaging studies show, but frankly I suspect he will be better tomorrow, but that having been said, I think we do need to exclude an acute cervical myelopathy with a history of falls and a significant intracranial injury that could be missed by CT scan. MTDD
[2019-12-13] MEDS: OXYCODONE HCL IR 5 MG TAB (IMMEDIATE RELEASE) PO PRN ×3 (04:48→17:04)
[2019-12-13] MEDS: HEPARIN SOD 5,000 UNIT/0.5 ML VIAL SQ SCH ×3 (05:31→20:47)
[2019-12-13 05:48] LABS: Basophils # (auto) 0.01 K/uL (0-0.2); Basophils % (auto) 0.2 %; Eosinophils # (auto) 0.06 K/uL (0-0.5); Hematocrit (blood only) 38.5 % (42-52); Hemoglobin 12.4 g/dL (14.0-18.0); Immature Granulocytes # (auto) 0.02 K/uL (0.00-0.02); Immature Granulocytes % (auto) 0.3 %; Lymphocytes # (auto) 1.01 K/uL (1.2-3.4); Lymphocytes % (auto) 16.5 %; Mean Corpuscular Hemoglobin 28.5 pg (25-34); Mean Corpuscular Hgb Conc 32.2 g/dL (32-36); Mean Corpuscular Volume 88.5 fL (80-100); Mean Platelet Volume 11.9 fL (7.4-10.4); Monocytes # (auto) 0.46 K/uL (0.11-0.59); Monocytes % (auto) 7.5 %; Neutrophils # (auto) 4.56 K/uL (1.4-6.5); Neutrophils % (auto) 74.5 %; Platelet Count 129 K/uL (130-400); RDW Standard Deviation 45.5 fL (36.4-46.3); Red Blood Count 4.35 M/uL (4.7-6.1); White Blood Count 6.12 K/uL (4.8-10.8)
[2019-12-13 06:20] LABS: BUN Creatinine Ratio 23.5 (10-20); Calcium 8.8 mg/dl (8.5-10.1); Creatinine Clr Calc Pharmacy 152.3 ml/min; Est GFR (African American) 117.1; Magnesium 2.1 mg/dl (1.8-2.4); Potassium 4.1 mmol/L (3.5-5.1)
[2019-12-13 06:52] LABS: Estimated Average Glucose 143 mg/dl; Hemoglobin A1C 6.6 % (4.5-5.6)
--- NOTE | 2019-12-13 07:33 | Magnetic Resonance Report ---
MR brain wo con HISTORY: 64 years-old Male altered mental status/Weakness acute headache with altered mental status and recent fall COMPARISON: Head CT of same day TECHNIQUE: Multiplanar multisequence MRI of the brain was obtained without the use of IV contrast FINDINGS: [employer] localizer images demonstrate no gross extracranial abnormality. There is no restricted diffusio n to suggest acute or subacute infarct. Midline structures including the corpus callosum, brainstem, optic chiasm, pituitary and pineal glands appear unremarkable on the sagittal T1 series. No cerebella r tonsillar herniation. Degenerative changes are noted involving the imaged cervical spine. Study is mildly motion degraded. No acute intracranial hemorrhage, midline shift, abnormal extra-axial collection, hydrocephalus or in tracranial mass. Mild to moderate patchy T2/FLAIR hyperintensities are noted throughout the white mat ter. Minimal age-related involutional changes. Major vascular flow voids are patent. Trace mastoid ef fusions. Mild mucosal thickening of the paranasal sinuses with small polypoid mucosal thickening of t he right maxillary sinus. The orbits, skull and soft tissues are unremarkable. IMPRESSION: 1. Motion degraded exam without acute intracranial abnormality identified, specifically there is no e vidence of acute or subacute infarct. 2. Mild to moderate T2/FLAIR hyperintensities throughout the white matter are nonspecific however fav or chronic microvascular ischemic disease. 3. Mild paranasal sinus disease. ACT 112: Negative or not required by law. The above report was generated using voice recognition software. It may contain grammatical, syntax o r spelling errors. Electronically signed by: Cain Robledo M.D. 12/13/2019 7:31 AM
[2019-12-13] MEDS: INSULIN ASPART 100 UNITS/ML 3 ML PEN SC SCH ×4 (08:04→20:49)
[2019-12-13] MEDS: METOPROLOL SUCC 50MG EXT REL TAB PO SCH (08:05)
[2019-12-13] MEDS: LOSARTAN POTASSIUM 50 MG TAB PO SCH (08:05)
[2019-12-13] MEDS: PREGABALIN 75 MG CAP PO SCH ×3 (08:05→20:44)
[2019-12-13] MEDS: ATORVASTATIN 20 MG TAB PO SCH (08:05)
[2019-12-13] MEDS: ASPIRIN 81 MG ECTAB PO SCH (08:05)
[2019-12-13] MEDS: PANTOprazole 40 MG TAB PO SCH ×2 (08:05→20:45)
[2019-12-13] MEDS: DOCUSATE SODIUM 100 MG CAP PO SCH (08:06)
[2019-12-13] MEDS: OXYCODONE HCL 15 MG TABCR (OXYCONTIN) PO SCH ×2 (08:11→20:44)
[2019-12-13] MEDS: INSULIN GLARGINE SOLOSTAR 100 UNITS/ML 3 ML PEN SC SCH (08:13)
--- NOTE | 2019-12-13 08:19 | Electrocardiogram Report ---
Test Reason : Blood Pressure : / mmHG Vent. Rate : 065 BPM Atrial Rate : 065 BPM P-R Int : 150 ms QRS Dur : 096 ms QT Int : 410 ms P-R-T Axes : 053 047 068 degrees QTc Int : 426 ms Normal sinus rhythm Normal ECG When compared with ECG of 12-DEC-2019 05:15, HR has decreased by 29 bpm Otherwise no significant change Confirmed by Miah Lai ([id number]) on 12/13/2019 8:19:16 AM Referred By: REFERRED SELF Confirmed By:Miah Lai
--- NOTE | 2019-12-13 08:46 | Pain Management Consultation ---
Date of Consultation December 13, 2019 Assessment & Plan (1) Amputation below knee: (2) Altered mental status: Altered mental status type: disorientation Qualified Code(s): R41.0 - Disorientation, unspecified (3) Chronic pain: As there have not been any recent changes to his chronic opioid regimen, the o pioids are not likely the cause to the acute confusion. Would not recommend any changes. Continue with current regimen OxyContin 30mg BID and Oxycodone 15mg QID. 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 He was admitted for confusion and chest pain. He has been chronically on OxyContin 30mg BID and Oxycodone 15m g QID for chronic pain complaints. He has not had any recent changes to his medication regimen. He denies any side effects to the medications. His phamtom limb pain is unchanged. Pain Assessment Full Body Front + Back: 1. 2. Allergies Allergy/AdvReac Type Severity Reaction Status Date / Time ketorolac Allergy Unknown BURNING Verified 12/12/19 03:19 SENSATION tramadol Allergy Unknown GI UPSET Verified 12/12/19 03:19 ciprofloxacin [From Cipro] AdvReac Intermediate upset Verified 12/12/19 03:19 stomach Home Medications Home Medications Medication Instructions Recorded Confirmed Type losartan 100 mg PO DAILY 04/21/18 12/12/19 History pantoprazole 40 mg PO BID 04/21/18 12/12/19 History metoprolol succinate 50 mg PO DAILY 11/28/18 12/12/19 History Lyrica 225 mg PO TID 12/12/19 12/12/19 History aspirin [Bryson Chewable Aspirin] 81 mg PO DAILY 12/12/19 12/12/19 History atorvastatin 20 mg PO DAILY 12/12/19 12/12/19 History docusate sodium [Stool Softener] 100 mg PO DAILY 12/12/19 12/12/19 History insulin glargine [Lantus Solostar 20 unit SUBCUT DAILY 12/12/19 12/12/19 History U-100 Insulin] metformin 1,000 mg PO BID 12/12/19 12/12/19 History ondansetron 4 mg TRANSLINGUAL Q8 PRN 12/12/19 12/12/19 History oxycodone 15 mg PO Q4H PRN 12/12/19 12/12/19 History oxycodone [OxyContin] 30 mg PO BID 12/12/19 12/12/19 History Patient History Medical History Acquired claw toe of left foot (Acute) Anxiety (Chronic) Callus (Acute) Charcot's joint of right foot (Acute) Charcot's joint, left ankle and foot (Acute) Chronic pain (Chronic) Chronic ulcer of left midfoot (Acute) Depression (Chronic) Diabetes mellitus with diabetic polyneuropathy (Acute) DMII (diabetes mellitus, type 2) (Chronic) GERD (gastroesophageal reflux disease) (Chronic) HTN (hypertension) (Chronic) Morbid obesity due to excess calories (Chronic) Multiple rib fractures involving four or more ribs (Resolved) OA (osteoarthritis) of knee (Chronic) ENRIQUE (obstructive sleep apnea) (Chronic) Smoker (Chronic) Surgical History H/O knee surgery (Chronic) History of bilateral knee replacement (Chronic) S/P trigger finger release (Chronic) Family History Father Lung cancer Mother Hypertension Dementia Social History Smoking Status: Current every day smoker Tobacco Type: Cigarettes Cigarettes Per Day: 20; Second Hand Exposure: No; Hx Alcohol Use: Yes Alcohol type: beer Hx Substance Use: No Preferred Language: Peruvian Communication Ability: Effective 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 Does not appear in any acute distress. HEAD/FACE: Normocephalic and atraumatic. EYES: No drainage or conjunctival injection. ENT: Nose without bleeding or discharge. Oral mucosa moist. CHEST/AXILLA: Chest movement symmetrical. No deformities noted. ABDOMEN/GI: No distension BACK: Moves without difficulty SKIN: [place], warm and dry. No rash noted. MS/EXTREMITY: No swelling, no deformities. Left below the knee amputation. NEURO: Alert and appears oriented. Speech is fluent. Cranial Nerves are grossly intact. PSYCH: Alert, pleasant, affect is calm
--- NOTE | 2019-12-13 09:09 | Electrocardiogram Report ---
Test Reason : Blood Pressure : / mmHG Vent. Rate : 106 BPM Atrial Rate : 106 BPM P-R Int : 144 ms QRS Dur : 092 ms QT Int : 344 ms P-R-T Axes : 046 031 053 degrees QTc Int : 456 ms Poor data quality, interpretation may be adversely affected Sinus tachycardia Otherwise normal ECG When compared with ECG of 27-NOV-2016 18:51, No significant change was found Confirmed by Cortez Cox ([id number]) on 12/13/2019 9:08:58 AM Referred By: REFERRED SELF Confirmed By:Cortez Cox
--- NOTE | 2019-12-13 09:10 | Electrocardiogram Report ---
Test Reason : Blood Pressure : / mmHG Vent. Rate : 094 BPM Atrial Rate : 094 BPM P-R Int : 140 ms QRS Dur : 090 ms QT Int : 352 ms P-R-T Axes : 041 021 034 degrees QTc Int : 440 ms Normal sinus rhythm Normal ECG When compared with ECG of 12-DEC-2019 02:52, (unconfirmed) No significant change was found Confirmed by Cortez Cox ([id number]) on 12/13/2019 9:10:24 AM Referred By: REFERRED SELF Confirmed By:Cortez Cox
--- NOTE | 2019-12-13 15:30 | Cardiology Progress Note ---
Date of Service December 13, 2019 Assessment & Plan (1) Diabetes mellitus type 2 with complications: (2) Charcot's joint: (3) Amputation below knee: (4) Altered mental status: (5) Chest pain: All consultants help is appreciated. As I mentioned below the patient has a history of anxiety and depression. About 3 weeks ago he stopped his Zoloft. He has been struggling. The recent amputation made things worse. He has been experiencing episodes of shortness of breath even when he is laying around which may be anxiety driven. He is also had a lack of motivation and may be's suffering from depression. I would recommend that his Zoloft be restarted. Subjective The patient is alert and oriented today. We had a good conversation with his daughter in the room. He is feeling anxious and over the past several weeks he has just had no motivation which was made worse by his amputation. He was also on Zoloft for history of depression and anxiety which he stopped on his own about the time that his symptoms started 3 weeks ago. Review of Systems Review of Systems: All systems reviewed & are unremarkable except as noted in HPI & below Nothing additional to add Physical Exam Physical Exam: General: no acute distress and stated age Head: normocephalic, no masses, lesions, tenderness or abnormalities Eyes: conjunctiva are pink and non-injected, sclera clear Neck: supple, no adenopathy, no bruits, normal jugular venous pulse, no hepatojugular reflux Chest: normal shape and normal respiratory effort Lungs: clear to auscultation and percussion Cardiac Exam: - regular rate & rhythm, no murmurs gallops or rubs - normal S1, normal S2 Pulses: 2(+) throughout Abdomen: abdomen soft, non-tender, no abnormal masses and no hepatosplenomegaly Musculoskeletal: no gait disturbance, no joint inflammation, no deforming arthritis Extremities: no edema and no cyanosis Neuro: grossly normal exam Results & Data Vital Signs (Past 12 Hours) Vital Signs Temp Pulse Pulse Resp BP BP Pulse Ox 12/13/19 15:20 36.6 C 60 19 154/82 H 95 12/13/19 12:05 36.5 C 61 19 135/81 96 12/13/19 08:07 36.8 C 72 19 145/73 H 99 Laboratory Results Laboratory Results - last 24 hr 12/12/19 12/12/19 12/12/19 16:29 18:59 20:20 WBC RBC Hgb Hct MCV MCH MCHC RDW Std Deviation RDW Coeff of Madelyn Plt Count MPV Immature Gran % (Auto) Neut % (Auto) Lymph % (Auto) Chase % (Auto) Eos % (Auto) Baso % (Auto) Neut # (Auto) Lymph # (Auto) Chase # (Auto) Eos # (Auto) Baso # (Auto) Immature Gran # (Auto) Sodium Potassium Chloride Carbon Dioxide Anion Gap BUN Creatinine Est Cr Clr Drug Dosing Est GFR ( Amer) Est GFR (Non-Af Amer) BUN/Creatinine Ratio Glucose POC Glucose 115 H 151 H Estimat Average Glucose Hemoglobin A1c Calcium Magnesium Troponin I < 0.015 12/13/19 12/13/19 12/13/19 05:25 05:25 05:25 WBC 6.12 RBC 4.35 L Hgb 12.4 L Hct 38.5 L MCV 88.5 MCH 28.5 MCHC 32.2 RDW Std Deviation 45.5 RDW Coeff of Madelyn 14.0 Plt Count 129 L MPV 11.9 H Immature Gran % (Auto) 0.3 Neut % (Auto) 74.5 Lymph % (Auto) 16.5 Chase % (Auto) 7.5 Eos % (Auto) 1.0 Baso % (Auto) 0.2 Neut # (Auto) 4.56 Lymph # (Auto) 1.01 L Chase # (Auto) 0.46 Eos # (Auto) 0.06 Baso # (Auto) 0.01 Immature Gran # (Auto) 0.02 Sodium 138 Potassium 4.1 Chloride 106 Carbon Dioxide 27 Anion Gap 5.0 BUN 16 Creatinine 0.69 Est Cr Clr Drug Dosing 152.3 Est GFR ( Amer) 117.1 Est GFR (Non-Af Amer) 101.0 BUN/Creatinine Ratio 23.5 H Glucose 128 H POC Glucose Estimat Average Glucose 143 Hemoglobin A1c 6.6 H Calcium 8.8 Magnesium 2.1 Troponin I 12/13/19 12/13/19 07:48 11:41 WBC RBC Hgb Hct MCV MCH MCHC RDW Std Deviation RDW Coeff of Madelyn Plt Count MPV Immature Gran % (Auto) Neut % (Auto) Lymph % (Auto) Chase % (Auto) Eos % (Auto) Baso % (Auto) Neut # (Auto) Lymph # (Auto) Chase # (Auto) Eos # (Auto) Baso # (Auto) Immature Gran # (Auto) Sodium Potassium Chloride Carbon Dioxide Anion Gap BUN Creatinine Est Cr Clr Drug Dosing Est GFR ( Amer) Est GFR (Non-Af Amer) BUN/Creatinine Ratio Glucose POC Glucose 126 H 128 H Estimat Average Glucose Hemoglobin A1c Calcium Magnesium Troponin I Medications Administered Current Inpatient Medications Acetaminophen (Tylenol) 650 mg PO Q4H PRN PRN Reason: Pain or Fever Stop: 01/11/20 07:05 Aspirin (Ecotrin Ectab) 81 mg PO DAILY [facility] Stop: 01/11/20 08:59 Last Admin: 12/13/19 08:05 Dose: 81 mg Documented by: Atorvastatin Calcium (Lipitor) 20 mg PO DAILY [facility] Stop: 01/11/20 08:59 Last Admin: 12/13/19 08:05 Dose: 20 mg Documented by: Docusate Sodium (Colace) 100 mg PO DAILY [facility] Stop: 01/11/20 08:59 Last Admin: 12/13/19 08:06 Dose: 100 mg Documented by: Heparin Sodium (Porcine) (Heparin Sodium (Porcine)) 5,000 units SQ Q8 [facility] Stop: 01/11/20 07:29 Last Admin: 12/13/19 13:55 Dose: 5,000 units Documented by: Insulin Aspart (Novolog Flexpen) 0 units SC ACHS [facility] Stop: 01/11/20 07:29 Last Admin: 12/13/19 12:28 Dose: Not Given Documented by: Insulin Glargine (Lantus Solostar Pen) 10 units SC DAILY [facility] Stop: 01/12/20 08:59 Last Admin: 12/13/19 08:13 Dose: 10 units Documented by: Labetalol HCl (Normodyne) 5 mg IV Q6H PRN PRN Reason: for SBP above 170 Stop: 01/11/20 08:52 Losartan Potassium (Cozaar) 100 mg PO DAILY [facility] Stop: 01/11/20 08:59 Last Admin: 12/13/19 08:05 Dose: 100 mg Documented by: Metoprolol Succinate (Toprol Xl) 50 mg PO DAILY [facility] Stop: 01/11/20 08:59 Last Admin: 12/13/19 08:05 Dose: 50 mg Documented by: Nitroglycerin (Nitrostat) 0.4 mg SL UD PRN PRN Reason: Chest Pain Stop: 01/11/20 07:05 Ondansetron HCl (Zofran) 4 mg IV Q6H PRN PRN Reason: Nausea Stop: 01/11/20 07:05 Oxycodone HCl (Oxycontin) 30 mg PO BID [facility]KO Stop: 12/26/19 08:59 Last Admin: 12/13/19 08:11 Dose: 30 mg Documented by: Oxycodone HCl (Roxicodone Immediate Rel) 15 mg PO Q6H PRN PRN Reason: Pain Stop: 12/26/19 15:46 Last Admin: 12/13/19 11:14 Dose: 15 mg Documented by: Oxymetazoline HCl (Afrin 0.05%) 1 sprays NA Q6 PRN PRN Reason: Nasal Congestion Stop: 01/11/20 15:43 Last Admin: 12/12/19 22:01 Dose: 1 sprays Documented by: Pantoprazole Sodium (Protonix) 40 mg PO BID [facility] Stop: 01/11/20 08:59 Last Admin: 12/13/19 08:05 Dose: 40 mg Documented by: Pregabalin (Lyrica) 225 mg PO TID [facility] Stop: 01/11/20 08:59 Last Admin: 12/13/19 13:54 Dose: 225 mg Documented by: (1) Altered mental status Altered mental status type: disorientation Qualified Code(s): R41.0 - Disorientation, unspecified (2) Chest pain Chest pain type: unspecified Qualified Code(s): R07.9 - Chest pain, unspecified
--- NOTE | 2019-12-13 16:39 | Communication Note ---
Date of Service: December 13, 2019 I saw Timothy today and I am pleased that he is much better his thought he would be. He is awake talking still feels generally weak has neck discomfort and had a negative MRI for any acute vascular event but unfortunately could not tolerate the MRI machine for cervical study He has had 2 falls and will go to go ahead with a CT scan of the cervical spine just to be sure there is no subluxation or narrowing of the canal that might predispose him to a myelopathy but now his arms are working much better and his leg function is pretty good although still globally down Unbeknownst to us he did abruptly stop his serotonin reuptake inhibitor about 3 weeks ago and began to feel terrible after that so one wonders if some of the twitching and jerking that were described is in the serotonin reuptake inhibitor withdrawal and so his malaise and fatigue might reflect this as well I suspect he is going to need some rehabilitation but I am not sure if he will accept this and he certainly should be back on a serotonin reuptake inhibitor, have the CT scan done of his neck and if there are any questions regarding instability then an MRI which could probably be done with sedation to get him to the study Dr. Siegel will be assuming neurologic consultations and he will be aware of the case put on think needs to make a scheduled visit unless her questions raised on the basis of the CT scan is currently we see no neurologic deficits and his imaging studies of the brain are unremarkable and his EEG showed only evidence for a minimal encephalopathy of nonspecific type which I suspect has cleared by now Neurology would certainly be willing to come by for any acute changes during the remainder of his hospital stay but I will think we need to follow-up on a regular basis outpatient once again unless our new issues that emerge during his hospital stay I discussed the above with Dr. Maier participated in a shared visit with the patient today Enrique Banegas MD
--- NOTE | 2019-12-13 19:06 | CT Scan Report ---
CT cervical spine wo con CT DOSE: 421.72 mGy.cm HISTORY: Trauma. Pain. s/P fall TECHNIQUE: Multiaxial CT images of the cervical spine were performed and reformatted in the sagittal and coronal plane without the use of contrast. A dose lowering technique was utilized adhering to th e principles of ALARA. COMPARISON: None. FINDINGS: No fractures. No subluxation. Prevertebral soft tissues and the C1-C2 interval are intact. No pneumothorax. IMPRESSION: Moderate degenerative disc changes throughout. No acute process. ACT 112: Negative or not required by law. The above report was generated using voice recognition software. It may contain grammatical, syntax or spelling errors. Electronically signed by: Jordan Bojorquez M.D. 12/13/2019 7:05 PM
--- NOTE | 2019-12-13 19:58 | Hospitalist Progress Note ---
Date of Service December 13, 2019 Assessment & Plan (1) Chest pain: Present on admission with chest pain and altered mental status Troponin x3 negative EKG showed no acute ischemic changes ECHO showed no LV wall motion abnormality with EF 60 to 65% Cardiology on board Cardiology does not think amy pain related to cardiac etiology No further cardiac testing as per Cardio Resolved Altered mental status Possible related to medication since pt on narcotic and lyrica CT and MRI head showed no acute intracranial abnormality EEG showed EEG reveals evidence for minimal to mild generalized nonspecific encephalopathy and reveals no evidence for potentially epileptogenic activity or lateralized abnormalities Neuro on board recommended to get CT cervical spine since pt refused to get MRI cervical spine Metal status back t baseline S/P Fall Ambulatory dysfunction due to Left BKA Continue PT/OT Fall precaution Thrombocytopenia Platelet 126 on admission, Platelet 129 today No sign of bleeding Stable . Sleep apnea Noncompliant with CPAP. 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 pain management on board recommended to continue home dose narcotic Gastroesophageal reflux disease. Continue PPI. Hypertension. Continue his Cozaar, Toprol-XL. Continue monitor BP Morbid obesity Counseling on diet and weight loss Depression Pt ran out of Zoloft 3 weeks ago Will resume zoloft DVT px on heparin subq CODE STATUS FULL CODE Disposition Possible discharge home tomorrow Admission and Anticipated Discharge Date Admission Date: December 12, 2019 Subjective Pt was seen and examined Lying in bed with no distress with daughter at bedside Pt looks much better today He is more awaked today He refused to get the MRI of the brain because he is claustrophobic He continues to request his narcotic to be q4h Denies any chest pain, palpitation, dizziness and SOB Physical Exam Physical Exam: General- No acute distress Head- atraumatic Eyes- PERRL, EOMI, ENT- oropharynx clear Neck- supple, no JVD Lungs- clear to auscultation Heart- regular rhythm; no murmur Abdomen- normal bowel sounds, soft, nontender Extremities- no calf tenderness, Left below knee amputation Neuro- alert, oriented x 3; PERRL, EOMI; no facial palsy; no dysarthria Skin- warm & dry Results & Data Results & Data ([facility]) Vital Signs (Past 12 Hours) Vital Signs Temp Pulse Pulse Resp BP BP Pulse Ox 12/13/19 19:24 37.0 C 60 18 161/86 H 95 12/13/19 15:20 36.6 C 60 19 154/82 H 95 12/13/19 12:05 36.5 C 61 19 135/81 96 12/13/19 08:07 36.8 C 72 19 145/73 H 99 (1) Chest pain Chest pain type: unspecified Qualified Code(s): R07.9 - Chest pain, unspecified
[2019-12-13] MEDS ORDERED: SERTRALINE HCL 50 MG TABLET PO SCH (21:00)
[2019-12-14] MEDS: OXYCODONE HCL IR 5 MG TAB (IMMEDIATE RELEASE) PO PRN ×4 (00:08→13:39)
[2019-12-14] MEDS: HEPARIN SOD 5,000 UNIT/0.5 ML VIAL SQ SCH ×2 (06:26→13:37)
[2019-12-14] MEDS: INSULIN ASPART 100 UNITS/ML 3 ML PEN SC SCH ×2 (07:47→11:56)
[2019-12-14] MEDS: LOSARTAN POTASSIUM 50 MG TAB PO SCH (08:01)
[2019-12-14] MEDS: PREGABALIN 75 MG CAP PO SCH ×2 (08:01→13:39)
[2019-12-14] MEDS: ATORVASTATIN 20 MG TAB PO SCH (08:01)
[2019-12-14] MEDS: ASPIRIN 81 MG ECTAB PO SCH (08:01)
[2019-12-14] MEDS: METOPROLOL SUCC 50MG EXT REL TAB PO SCH (08:01)
[2019-12-14] MEDS: PANTOprazole 40 MG TAB PO SCH (08:01)
[2019-12-14] MEDS: DOCUSATE SODIUM 100 MG CAP PO SCH (08:01)
[2019-12-14] MEDS: OXYCODONE HCL 15 MG TABCR (OXYCONTIN) PO SCH (08:02)
[2019-12-14 08:09] LABS: Codeine Urine NEGATIVE ng/mL (<50); Hydrocodone Urine NEGATIVE ng/mL (<50); Hydromor Urine NEGATIVE ng/mL (<50); Marijuana Quant, GCMS Urine 182 ng/mL (<5); Morphine Urine NEGATIVE ng/mL (<50); Norhydrocodone Conf Ur NEGATIVE ng/mL (<50); Noroxycodone Urine >10000 ng/mL (<50); Oxycodone Urine 6480 ng/mL (<50); Oxymorph Urine 3790 ng/mL (<50)
[2019-12-14] MEDS: INSULIN GLARGINE SOLOSTAR 100 UNITS/ML 3 ML PEN SC SCH (08:42)
--- NOTE | 2019-12-14 12:02 | Cardiology Progress Note ---
Date of Service December 14, 2019 Assessment & Plan (1) Diabetes mellitus type 2 with complications: (2) Charcot's joint: (3) Amputation below knee: (4) Altered mental status: (5) Chest pain: The patient is alert and oriented today. He is in good spirits. His Zoloft was restarted, he only received 1 dose so I am sure it will take a few more days to take effect. He is anxious to return home and I think that that is appropriate at this time. He can follow-up with his primary care physician. Subjective The patient is brighter today and in good spirits. He wants to return home. Review of Systems Review of Systems: All systems reviewed & are unremarkable except as noted in HPI & below General: no acute distress and stated age Head: normocephalic, no masses, lesions, tenderness or abnormalities Eyes: conjunctiva are pink and non-injected, sclera clear Neck: supple, no adenopathy, no bruits, normal jugular venous pulse, no hepatoju gular reflux Chest: normal shape and normal respiratory effort Lungs: clear to auscultation and percussion Cardiac Exam: - regular rate & rhythm, no murmurs gallops or rubs - normal S1, normal S2 Pulses: 2(+) throughout Abdomen: abdomen soft, non-tender, no abnormal masses and no hepatosplenomegaly Musculoskeletal: no gait disturbance, no joint inflammation, no deforming arthritis Extremities: no edema and no cyanosis Neuro: grossly normal exam Physical Exam Physical Exam: General: no acute distress and stated age Head: normocephalic, no masses, lesions, tenderness or abnormalities Eyes: conjunctiva are pink and non-injected, sclera clear Neck: supple, no adenopathy, no bruits, normal jugular venous pulse, no hepatojugular reflux Chest: normal shape and normal respiratory effort Lungs: clear to auscultation and percussion Cardiac Exam: - regular rate & rhythm, no murmurs gallops or rubs - normal S1, normal S2 Pulses: 2(+) throughout Abdomen: abdomen soft, non-tender, no abnormal masses and no hepatosplenomegaly Musculoskeletal: no gait disturbance, no joint inflammation, no deforming arthritis Extremities: no edema and no cyanosis Neuro: grossly normal exam Results & Data Vital Signs (Past 12 Hours) Vital Signs Temp Pulse Resp BP Pulse Ox 12/14/19 08:00 36.8 C 60 20 126/71 97 12/14/19 03:45 36.4 C L 56 L 19 122/69 97 Laboratory Results Laboratory Results - last 24 hr 12/12/19 12/13/19 12/13/19 05:00 16:18 20:24 POC Glucose 166 H 102 H U Codeine Confrm GC/MS NEGATIVE Ur Morphine (GC/MS) NEGATIVE Ur Hydrocodone (GC/MS) NEGATIVE Ur Norhydrocodone NEGATIVE Ur Noroxycodone >92108 H Urine Oxycodone (GC/MS) 6480 H U Oxymorphone GC/MS 3790 H Ur Hydromorphone (GC/MS) NEGATIVE U Marijuana THC Carboxy 182 H Drug Screen Comment SEE NOTE 12/14/19 12/14/19 07:30 11:24 POC Glucose 117 H 147 H U Codeine Confrm GC/MS Ur Morphine (GC/MS) Ur Hydrocodone (GC/MS) Ur Norhydrocodone Ur Noroxycodone Urine Oxycodone (GC/MS) U Oxymorphone GC/MS Ur Hydromorphone (GC/MS) U Marijuana THC Carboxy Drug Screen Comment Medications Administered Current Inpatient Medications Acetaminophen (Tylenol) 650 mg PO Q4H PRN PRN Reason: Pain or Fever Stop: 01/11/20 07:05 Aspirin (Ecotrin Ectab) 81 mg PO DAILY [facility] Stop: 01/11/20 08:59 Last Admin: 12/14/19 08:01 Dose: 81 mg Documented by: Atorvastatin Calcium (Lipitor) 20 mg PO DAILY [facility] Stop: 01/11/20 08:59 Last Admin: 12/14/19 08:01 Dose: 20 mg Documented by: Docusate Sodium (Colace) 100 mg PO DAILY [facility] Stop: 01/11/20 08:59 Last Admin: 12/14/19 08:01 Dose: 100 mg Documented by: Heparin Sodium (Porcine) (Heparin Sodium (Porcine)) 5,000 units SQ Q8 [facility] Stop: 01/11/20 07:29 Last Admin: 12/14/19 06:26 Dose: 5,000 units Documented by: Insulin Aspart (Novolog Flexpen) 0 units SC ACHS [facility] Stop: 01/11/20 07:29 Last Admin: 12/14/19 11:56 Dose: 6 units Documented by: Insulin Glargine (Lantus Solostar Pen) 10 units SC DAILY [facility] Stop: 01/12/20 08:59 Last Admin: 12/14/19 08:42 Dose: 10 units Documented by: Labetalol HCl (Normodyne) 5 mg IV Q6H PRN PRN Reason: for SBP above 170 Stop: 01/11/20 08:52 Losartan Potassium (Cozaar) 100 mg PO DAILY [facility] Stop: 01/11/20 08:59 Last Admin: 12/14/19 08:01 Dose: 100 mg Documented by: Metoprolol Succinate (Toprol Xl) 50 mg PO DAILY [facility] Stop: 01/11/20 08:59 Last Admin: 12/14/19 08:01 Dose: 50 mg Documented by: Nitroglycerin (Nitrostat) 0.4 mg SL UD PRN PRN Reason: Chest Pain Stop: 01/11/20 07:05 Ondansetron HCl (Zofran) 4 mg IV Q6H PRN PRN Reason: Nausea Stop: 01/11/20 07:05 Oxycodone HCl (Oxycontin) 30 mg PO BID [facility] Stop: 12/26/19 08:59 Last Admin: 12/14/19 08:02 Dose: 30 mg Documented by: Oxycodone HCl (Roxicodone Immediate Rel) 15 mg PO Q4H PRN PRN Reason: Pain Stop: 12/26/19 20:59 Last Admin: 12/14/19 08:42 Dose: 15 mg Documented by: Oxymetazoline HCl (Afrin 0.05%) 1 sprays NA Q6 PRN PRN Reason: Nasal Congestion Stop: 01/11/20 15:43 Last Admin: 12/12/19 22:01 Dose: 1 sprays Documented by: Pantoprazole Sodium (Protonix) 40 mg PO BID [facility] Stop: 01/11/20 08:59 Last Admin: 12/14/19 08:01 Dose: 40 mg Documented by: Pregabalin (Lyrica) 225 mg PO TID [facility] Stop: 01/11/20 08:59 Last Admin: 12/14/19 08:01 Dose: 225 mg Documented by: Sertraline HCl (Zoloft) 25 mg PO HS [facility] Stop: 01/12/20 20:59 Last Admin: 12/13/19 20:46 Dose: 25 mg Documented by: (1) Altered mental status Altered mental status type: disorientation Qualified Code(s): R41.0 - Disorientation, unspecified (2) Chest pain Chest pain type: unspecified Qualified Code(s): R07.9 - Chest pain, unspecified
[2019-12-14 12:06] VITALS: BP 105/57; TEMP 97.7; O2SAT 94
--- NOTE | 2019-12-14 12:58 | Hospitalist Progress Note ---
Date of Service December 14, 2019 Assessment & Plan (1) Chest pain: Present on admission with chest pain and altered mental status Troponin x3 negative EKG showed no acute ischemic changes ECHO showed no LV wall motion abnormality with EF 60 to 65% Cardiology on board Cardiology does not think amy pain related to cardiac etiology No further cardiac testing as per Cardio Resolved Altered mental status Possible related to medication since pt on narcotic and lyrica CT and MRI head showed no acute intracranial abnormality EEG showed EEG reveals evidence for minimal to mild generalized nonspecific encephalopathy and reveals no evidence for potentially epileptogenic activity or lateralized abnormalities Neuro on board recommended to get CT cervical spine since pt refused to get MRI cervical spine CT cervical showed moderate degenerative disc changes throughout. No acute process. Mental status back t baseline S/P Fall Ambulatory dysfunction due to Left BKA Continue PT/OT Fall precaution Thrombocytopenia Platelet 126 on admission, Platelet 129 today No sign of bleeding Stable . Sleep apnea SOB Noncompliant with CPAP. 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 pain management on board recommended to continue home dose narcotic Gastroesophageal reflux disease. Continue PPI. Hypertension. Continue his Cozaar, Toprol-XL. Continue monitor BP Morbid obesity Counseling on diet and weight loss Depression Pt ran out of Zoloft 3 weeks ago Received Zoloft 25mg last night Will discharge on Zoloft 50mg HS Pt was advised if he wants to discontinue the Zoloft to inform his doctor that he can get a weaning dose DVT px on heparin subq CODE STATUS FULL CODE Disposition Possible discharge home today Follow up with your primary care provider Admission and Anticipated Discharge Date Admission Date: December 12, 2019 Subjective Pt was seen and examined Lying in bed with no distress Pt said that he feels fine He said that he feels much better He walked around with therapy Pain is controlled Denies any chest pain, palpitation, dizziness and SOB Physical Exam Physical Exam: General- No acute distress Head- atraumatic Eyes- PERRL, EOMI, ENT- oropharynx clear Neck- supple, no JVD Lungs- clear to auscultation Heart- regular rhythm; no murmur Abdomen- normal bowel sounds, soft, nontender Extremities- no calf tenderness, Left below knee amputation with prosthetic on Neuro- alert, oriented x 3; PERRL, EOMI; no facial palsy; no dysarthria Skin- warm & dry Results & Data Results & Data ([facility]) Vital Signs (Past 12 Hours) Vital Signs Temp Pulse Resp BP BP Pulse Ox 12/14/19 11:27 36.5 C 50 L 16 105/57 L 94 12/14/19 08:00 36.8 C 60 20 126/71 97 12/14/19 03:45 36.4 C L 56 L 19 122/69 97 (1) Chest pain Chest pain type: unspecified Qualified Code(s): R07.9 - Chest pain, un specified
[2019-12-14 14:16] VITALS: PULSE 61
--- NOTE | 2019-12-15 06:59 | Electrocardiogram Report ---
Test Reason : Blood Pressure : / mmHG Vent. Rate : 053 BPM Atrial Rate : 053 BPM P-R Int : 140 ms QRS Dur : 092 ms QT Int : 422 ms P-R-T Axes : 059 058 071 degrees QTc Int : 395 ms Sinus bradycardia Otherwise normal ECG When compared with ECG of 13-DEC-2019 06:24, No significant change was found Confirmed by Cortez Cox ([id number] on 12/15/2019 6:59:46 AM Referred By: REFERRED SELF Confirmed By:Cortez Cox
--- NOTE | 2019-12-16 09:48 | Discharge Summary ---
Date of Service December 14, 2019 Admission HPI Per Admitting Provider CHIEF COMPLAINT: Chest pain and confusion. 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 He comes because of chest pain and confusion. The patient has prosthesis for his left below-knee amputation, but in the nighttime uses a walker. In the night, he woke up for going to bathroom, he went to bathroom and while coming back, he was complaining of chest pain. He was downstairs and his daughter and were upstairs. He came to the stairs and complained of chest pain and seemed confused and was brought into the ER. Initially he was somewhat somnolent when he came into the ER. CT of the head was unremarkable. All the labs were unremarkable. The patient woke up and he was given a dose of aspirin. He complains of chest pain and also pain in his legs. He has phantom pain and takes significant pain medications. He has sleep apnea, but since his amputation he is not using CPAP, not on oxygen at home. He says he has chest pressure like feeling, no radiation, also some nausea. Denies any shortness of breath, no cough. Has some headache. Vision is somewhat blurry. No earache, no runny nose, no sore throat. Smell is okay. Taste is not that great. No abdominal pain. Normal bowel and bladder movements. No rash seen. Currently alert and oriented x3, but when try to do FUSE COILER exam, he states he is not able to follow the commands. Admission Exam Per Admitting Provider GENERAL: The patient is morbidly obese, not in acute distress. VITAL SIGNS: Temperature 37.1, pulse 92, respiratory rate 20, blood pressure 140/81, oxygen 98% on 2 liters. HEENT: No pallor, no icterus. Extraocular muscles intact. Oral mucosa somewhat dry. NECK: No neck masses seen, supple. CARDIOVASCULAR: S1, S2 heard, regular rate and rhythm, no murmur, no gallop. RESPIRATORY SYSTEM: Normal AP diameter. No accessory muscle use. No wheezing, no crackles. ABDOMEN: Soft, bowel sounds present, nontender. No distention. CENTRAL NERVOUS SYSTEM: Alert and oriented. No facial droop. Speech is clear. Tongue is midline. Obeys simple commands but has generalized weakness and is having difficulty to raise his hands, but no pronator drift seen. Difficult to raise his lower extremity. When asked to do coordination of movements, he said he could not follow the commands. EXTREMITIES: Mild lower extremity edema present, no erythema seen. Left below- knee amputation. Principal Diagnosis Chest pain Altered mental status S/P Fall Ambulatory dysfunction due to Left BKA Fall precaution Thrombocytopenia Sleep apnea Vaping Diabetes Chronic pain Charcot's joint Gastroesophageal reflux disease. Hypertension. Morbid obesity Depression Discharge Exam General- No acute distress Head- atraumatic Eyes- PERRL, EOMI, ENT- oropharynx clear Neck- supple, no JVD Lungs- clear to auscultation Heart- regular rhythm; no murmur Abdomen- normal bowel sounds, soft, nontender Extremities- no calf tenderness, Left below knee amputation with prosthetic on Neuro- alert, oriented x 3; PERRL, EOMI; no facial palsy; no dysarthria Skin- warm & dry Discharge Data Allergies Allergy/AdvReac Type Severity Reaction Status Date / Time ketorolac Allergy Unknown BURNING Verified 12/12/19 03:19 SENSATION tramadol Allergy Unknown GI UPSET Verified 12/12/19 03:19 ciprofloxacin [From Cipro] AdvReac Intermediate upset Verified 12/12/19 03:19 stomach Consultations 12/12/19 04:49 ED Decision to Admit Stat 12/12/19 07:06 Consult Case Management - Discharge Planning Routine 12/12/19 08:00 Consult Cardiology Routine 12/12/19 09:58 Consult Neurology Routine 12/12/19 09:59 Consult Pain Management Routine Ordered Studies 12/12/19 03:00 CT head/brain wo con Urgent 12/12/19 15:50 MR brain wo con Routine 12/13/19 17:26 CT cervical spine wo con Routine XR chest 1V portable CLINICAL HISTORY: Atypical chest pain, shortness of breath. Change in mental status. COMPARISON STUDY: November 27, 2016 FINDINGS: The heart is at the upper limits of normal in size. There is mild vascular prominence without evidence of overt failure. There is no lobar consolidation. Increased markings the left lung base with nonspecific are likely atelectatic.[ IMPRESSION: 1. No evidence of lobar consolidation 2. Mild vascular prominence without evidence of overt failure 3. Minor left basilar densities statistically atelectatic ACT 112: Negative or not required by law. Electronically signed by: Basilio Darnell M.D. 12/12/2019 6:44 AM Dictated: 12/12/19642 Transcribed: 12/12/19642 CT head/brain wo con CT DOSE: 687.98 mGy.cm HISTORY: Mental status change mental status change TECHNIQUE: Multiaxial CT images of the head were performed without the use of intravenous contrast. A dose lowering technique was utilized adhering to the principles of ALARA. Comparison: 11/27/2016 Findings: The paranasal sinuses and mastoid air cells are clear. The calvarium and skull base are intact. The ventricles and sulci are within normal limits. There is no mass, hematoma, midline shift, or acute infarct. Impression: No acute intracranial abnormality. Age-related atrophy and chronic small vessel change ACT 112: Negative or not required by law. The above report was generated using voice recognition software. It may contain grammatical, syntax or spelling errors. Electronically signed by: Jordan Bojorquez M.D. 12/12/2019 6:21 AM Dictated: 12/12/19619 Transcribed: 12/12/19619 MR brain wo con HISTORY: 64 years-old Male altered mental status/Weakness acute headache with altered mental status and recent fall COMPARISON: Head CT of same day TECHNIQUE: Multiplanar multisequence MRI of the brain was obtained without the use of IV contrast FINDINGS: Pick Up Driver localizer images demonstrate no gross extracranial abnormality. There is no restricted diffusion to suggest acute or subacute infarct. Midline structures including the corpus callosum, brainstem, optic chiasm, pituitary and pineal glands appear unremarkable on the sagittal T1 series. No cerebellar tonsillar herniation. Degenerative changes are noted involving the imaged cervical spine. Study is mildly motion degraded. No acute intracranial hemorrhage, midline shift, abnormal extra-axial collection, hydrocephalus or intracranial mass. Mild to moderate patchy T2/FLAIR hyperintensities are noted throughout the white matter. Minimal age-related involutional changes. Major vascular flow voids are patent. Trace mastoid effusions. Mild mucosal thickening of the paranasal sinuses with small polypoid mucosal thickening of the right maxillary sinus. The orbits, skull and soft tissues are unremarkable. IMPRESSION: 1. Motion degraded exam without acute intracranial abnormality identified, specifically there is no evidence of acute or subacute infarct. 2. Mild to moderate T2/FLAIR hyperintensities throughout the white matter are nonspecific however favor chronic microvascular ischemic disease. 3. Mild paranasal sinus disease. ACT 112: Negative or not required by law. The above report was generated using voice recognition software. It may contain grammatical, syntax or spelling errors. Electronically signed by: Cain Robledo M.D. 12/13/2019 7:31 AM Dictated: 12/13/19727 Transcribed: 12/13/19727 CT cervical spine wo con CT DOSE: 421.72 mGy.cm HISTORY: Trauma. Pain. s/P fall TECHNIQUE: Multiaxial CT images of the cervical spine were performed and reformatted in the sagittal and coronal plane without the use of contrast. A dose lowering technique was utilized adhering to the principles of ALARA. COMPARISON: None. FINDINGS: No fractures. No subluxation. Prevertebral soft tissues and the C1-C2 interval are intact. No pneumothorax. IMPRESSION: Moderate degenerative disc changes throughout. No acute process. ACT 112: Negative or not required by law. The above report was generated using voice recognition software. It may contain grammatical, syntax or spelling errors. Electronically signed by: Jordan Bojorquez M.D. 12/13/2019 7:05 PM Dictated: 12/13/191903 Transcribed: 12/13/191903 Hospital Course (1) Chest pain: Present on admission with chest pain and altered mental status Troponin x3 negative EKG showed no acute ischemic changes ECHO showed no LV wall motion abnormality with EF 60 to 65% Cardiology on board Cardiology does not think amy pain related to cardiac etiology No further cardiac testing as per Cardio Resolved Altered mental status Possible related to medication since pt on narcotic and lyrica CT and MRI head showed no acute intracranial abnormality EEG showed EEG reveals evidence for minimal to mild generalized nonspecific encephalopathy and reveals no evidence for potentially epileptogenic activity or lateralized abnormalities Neuro on board recommended to get CT cervical spine since pt refused to get MRI cervical spine CT cervical showed moderate degenerative disc changes throughout. No acute process. Mental status back t baseline S/P Fall Ambulatory dysfunction due to Left BKA Continue PT/OT Fall precaution Thrombocytopenia Platelet 126 on admission, Platelet 129 today No sign of bleeding Stable . Sleep apnea SOB Noncompliant with CPAP. 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 pain management on board recommended to continue home dose narcotic Gastroesophageal reflux disease. Continue PPI. Hypertension. Continue his Cozaar, Toprol-XL. Continue monitor BP Morbid obesity Counseling on diet and weight loss Depression Pt ran out of Zoloft 3 weeks ago Received Zoloft 25mg last night Will discharge on Zoloft 50mg HS Pt was advised if he wants to discontinue the Zoloft to inform his doctor that he can get a weaning dose DVT px on heparin subq CODE STATUS FULL CODE Disposition Possible discharge home today Follow up with your primary care provider Total Time Total Time Spent Total Time Spent (In Minutes): 35 minutes Total Time Includes: Examination of the Patient, Discharge Planning, Medication Reconciliation, Communication With Other Providers and Other Discharge Plan Discharge Items Patient Disposition: Home - Self-Care Reason For Visit: CHEST PAIN, CONFUSION Discharge Diagnosis: Chest pain Altered mental status S/P Fall Ambulatory dysfunction due to Left BKA Fall precaution Thrombocytopenia Sleep apnea Vaping Diabetes Chronic pain Charcot's joint Gastroesophageal reflux disease. Hypertension. Morbid obesity Depression Activity: Resume your previous activity Non-emergency contact: Primary Care Provider Call non-emergency contact if: you have any medication questions Follow-up/Referrals: Karlie Bates DO [Primary Care Provider] - 12/20/19 12:00 pm (12/20/2019 12:00 PM Provider Karlie Bates DO [facility] ) Diet: Carb Consistent or DM2 Addtl Attending Provider Instructions: Follow up with your primary care provider Dr. Bates on 12/20/19 @ 12:00PM Do not drive or operate any machine after taking the narcotic Hold next dose of narcotic if you become drowsy and lethargy Fall precaution Counseling on vaping cessation Your physician will refer you to pulmonology to arrange for a lung study test You need to start to use your CPAP Fall precaution Pending Studies at Discharge: No Stand-Alone Forms: My [facility], Smoking Cessation Medications and DC Order Prescriptions: New sertraline [Zoloft] 50 mg tablet 50 mg PO HS Qty: 30 RF: 0 albuterol sulfate 90 mcg/actuation HFA aerosol inhaler 1 puffs INH Q6H PRN (Reason: shortness of breath or wheezing) Qty: 8 RF: 0 Continued aspirin [Bryson Chewable Aspirin] 81 mg Tablet,Chewable 81 mg PO DAILY RF: 0 docusate sodium [Stool Softener] 100 mg Capsule 100 mg PO DAILY RF: 0 atorvastatin 20 mg Tablet 20 mg PO DAILY RF: 0 metformin 500 mg tablet extended release 24 hr 1,000 mg PO BID RF: 0 ondansetron 4 mg tablet,disintegrating 4 mg translingual Q8 PRN (Reason: Nausea) RF: 0 oxycodone 15 mg Tablet 15 mg PO Q4H PRN (Reason: Pain) RF: 0 oxycodone [OxyContin] 30 mg Tablet,Oral Only,Ext.Rel.12 Hr 30 mg PO BID RF: 0 Lyrica 225 mg 225 mg PO TID RF: 0 Lantus Solostar U-100 Insulin 100 unit/mL (3 mL) Insulin Pen 20 unit SUBCUT DAILY RF: 0 pantoprazole 40 mg Tablet,Delayed Release (Dr/Ec) 40 mg PO BID RF: 0 losartan 100 mg Tablet 100 mg PO DAILY RF: 0 metoprolol succinate 50 mg Tablet Extended Release 24 Hr 50 mg PO DAILY RF: 0 Discharge Orders: Discharge Order (Routine); Ordered 12/14/19 Ordered By: Irasema Lantigua/Other Patient Handouts: High Blood Sugar (Hyperglycemia), Hypoglycemia (Low Blood Sugar), Managing Type 2 Diabetes, Diabetes: Meal Planning Admission Data Admit Date/Time: 12/12/19 05:57 Attending Provider: Irasema Maier Admit Provider: Rogelio Marie Primary Care Provider: Karlie Baets Other Providers: Rogelio Marie ; Timothy Díaz ; Bk Gottlieb ; Gonzales Anton ; Doc Barahona ; Robby Moura ; Jordan Gong ; Lilly Hickman ; Brigid Guallpa ; Ben Velasquez ; Chester Griffin. ; Dionicio Siegel ; Lorin Mathur Other Interventions: Discharge Summary Assessment (RN) Last Done: 12/14/19 13:52 DC Date/Time DO NOT enter until pt leaves facility: 12/14/19 12:45
== END 2019-12-14 12:45 | disposition home or self-care (01) | DRG 313 ==
LOC: ED 02:48 → SUATTDRO 05:57 → 2S 05:57

== ENCOUNTER 2020-11-23 13:52 | Inpatient (IN) ==
[2020-11-23] MEDS ORDERED: ALBUT/IPRATROP 3MG/0.5MG NEB 3 ML VIAL NEB ONE (14:26)
[2020-11-23 14:48] LABS: Basophils # (auto) 0.01 K/uL (0-0.2); Basophils % (auto) 0.1 %; Eosinophils # (auto) 0.04 K/uL (0-0.5); Eosinophils % (auto) 0.4 %; Hematocrit (blood only) 37.1 % (42-52); Hemoglobin 12.1 g/dL (14.0-18.0); Immature Granulocytes # (auto) 0.03 K/uL (0.00-0.02); Immature Granulocytes % (auto) 0.3 %; Lymphocytes # (auto) 0.82 K/uL (1.2-3.4); Lymphocytes % (auto) 8.8 %; Mean Corpuscular Hgb Conc 32.6 g/dL (32-36); Mean Platelet Volume 11.7 fL (7.4-10.4); Monocytes # (auto) 1.05 K/uL (0.11-0.59); Monocytes % (auto) 11.3 %; Neutrophils # (auto) 7.36 K/uL (1.4-6.5); Neutrophils % (auto) 79.1 %; Platelet Count 180 K/uL (130-400); RDW Coefficient of Variation 15.7 % (11.5-14.5); RDW Standard Deviation 51.1 fL (36.4-46.3); Red Blood Count 4.17 M/uL (4.7-6.1); White Blood Count 9.31 K/uL (4.8-10.8)
[2020-11-23 14:49] LABS: Base Excess ABG -4.5 mEq/L (-9-1.8); HCO3 ABG 23 mmol/L (19-24); Oxygen Saturation ABG 97.9 % (90-95); PCO2 ABG 53 mmHg (35-46); PO2 ABG 118 mmHg (80-95); pH ABG 7.26 (7.35-7.45)
[2020-11-23 14:50] LABS: Allen Test Pos (Pos)
--- NOTE | 2020-11-23 14:50 | XRay Report ---
XR chest 1V portable HISTORY: 65 years-old Male Chest Pain acute atypical chest pain COMPARISON: Chest radiograph 12/12/2019 TECHNIQUE: Portable AP view of the chest FINDINGS: Cardiac silhouette is upper limits of normal in size. Pulmonary vascular congestion. Mild interstitia l coarsening of the lung right greater than left lung bases. No pneumothorax, pleural effusion or lob ar airspace consolidation. Degenerative changes of the spine and left shoulder. IMPRESSION: 1. Cardiomegaly with pulmonary vascular congestion. 2. Mild asymmetric interstitial coarsening of the right lung base suggestive of atelectasis versus pn eumonitis. ACT 112: Negative or not required by law. The above report was generated using voice recognition software. It may contain grammatical, syntax o r spelling errors. Electronically signed by: Mak Robledo M.D. 11/23/2020 2:48 PM
[2020-11-23] MEDS ORDERED: PIPERACILL/TAZOBAC CONSULT ACTIVE PRN (15:07)
[2020-11-23] MEDS ORDERED: PIPERACILLIN/TAZOBACTAM 4.5 GM/120 ML BAG IV ONE (15:07)
[2020-11-23] MEDS ORDERED: FUROSEMIDE 40 MG/4 ML VIAL IV STA (15:07)
[2020-11-23] MEDS ORDERED: levoFLOXacin/D5W 750 MG/150 ML BAG IV STA (15:07)
[2020-11-23 15:08] LABS: Partial Thromboplastin Ratio 1.1; Partial Thromboplastin Time 29.4 Seconds (21.0-31.0)
[2020-11-23 15:11] LABS: Albumin Level 3.2 gm/dl (3.4-5.0); BUN Creatinine Ratio 20.6 (10-20); Calcium 9.7 mg/dl (8.5-10.1); Creatinine Clr Calc Pharmacy 31.2 ml/min; Est GFR (African American) 24.2 ml/min; Est GFR (Non-African American) 20.9 ml/min; Potassium 4.8 mmol/L (3.5-5.1)
[2020-11-23] MEDS ORDERED: SODIUM CHLORIDE 0.9% 1000ML 1,000 ML IV ONE (15:13)
[2020-11-23 15:16] LABS: Albumin Globulin Ratio 0.7 (0.9-2); Bilirubin,Total 0.4 mg/dl (0.2-1); Globulin 4.9 gm/dl (2.5-4.0); Total Protein 8.1 gm/dl (6.4-8.2); Troponin I 0.016 ng/ml (0-0.045)
[2020-11-23] MEDS ORDERED: NALOXONE HCL 0.4 MG/1 ML VIAL/CARP IV STA ×2 (15:38→17:43)
--- NOTE | 2020-11-23 17:41 | History & Physical Report ---
Date of Service November 23, 2020 Assessment & Plan (1) Acute respiratory failure: Pt is 65 y/o M with PMH DM II, DM HTN, HLD, ENRIQUE previously noncompliant with CPAP, now on BiPAP at bedtime, Left BKA, phantom limb pain on chronic narcotic, Anxiety, depression, Charcot joint, obesity presented to ER for altered mental status since yesterday morning. Did not have Bipap on last night. H/O hospitalization for acute hypercapnic respiratory failure in setting of excessive opiate use. Was treated with BiPAP and Narcan, discharged on Triology His oxycodone ER was reduced from 30 mg twice daily to 20 mg twice daily. Oxycodone was reduced from 15 mg every 6 hours as needed pain to 10 mg every 6 hours as needed pain Today in ER it is reported patient was noted to be hypoxic at 89% on room air, afebrile, tachycardic at 106 and somnolent. ABG: pH: 7.26, PO2: 118, PCO2: 53, HCO3: 23. Lactate: 1.0, Procalcitonin: 0.17 CXR question pneumonitis versus atelectasis right lower lobe, pulmonary vascular congestion In ER was ordered 1 L NSS, 1 hour albuterol neb, Lasix 40 mg IV, Zosyn, Levaquin. Patient was initially placed on BiPAP with O2 sat from 89 to 96% and reported to become a little more alert. Later in ER course 0.2 Narcan was given and reported patient became more awake. Patient went to CT and back to ER was not placed back on BiPAP initially. BiPAP replaced with repeat ABG in 30 minutes improved with pH: 7.3, pCO2: 45, pO2: 128, HCO3: 21 Pt was given additional dose Narcan without much improvement Pt will be admitted to ICU for further observation and treatment Continue Bipap (2) Pneumonia: recent pneumonia in 09/2020 during hospitalization at [facility] CT ABD/PELVIS: Bibasilar patchy consolidative opacities are suggestive of multifocal pneumonia. In ER given Zosyn, Levaquin Continue zosyn Possible aspiration (3) Metabolic encephalopathy: Probable secondary to opioid overuse, AARON, hypercapnia Pt probably not clearing opioids secondary to poor renal function Monitor Treatment as above (4) AARON (acute kidney injury): BUN: 62, Cr: 3, GFR: 20. Baseline Cr: 0.6. (09/2020 hospitalization also had AARON with Cr up to 2) CT ABD/PELVIS: No urolith or obstructive uropathy. Possible secondary to urinary retention Avoid nephrotoxic agents when possible Nephrology consult (5) Urinary retention: Bladder scan 500 mL. Patient unable to urinate. Catheter placed in ER and 1300ml drained (6) Fluid overload: CXR: pulmonary vascular congestion In ER given lasix 40mg IV (7) ENRIQUE (obstructive sleep apnea): Prior history non-compliance with CPAP. Recently started using Triology HS. (8) Chronic narcotic use: (9) DMII (diabetes mellitus, type 2): glycemic management per ICU (10) HTN (hypertension): management per ICU (11) Obesity: (12) Anxiety: Admit ICU Full Code as per discussion with pt and pt's Follows with Dr Bates for routine care Pt was seen and care coordinated with Dr Da Silva. See addendum History of Present Illness Chief Complaint: [facility] Primary Care Provider: Karlie Bates, DO Pt is 65 y/o M with PMH DM II, DM HTN, HLD, ENRIQUE previously noncompliant with CPAP, now on BiPAP at bedtime, Left BKA, phantom limb pain on chronic narcotic, Anxiety, depression, Charcot joint, obesity presented to ER for altered mental status. History mostly obtained from patient's secondary to patient's altered mental status. Patient with history hospitalization at [facility] 09/28/2020-10/02/2020 for acute hypercapnic respiratory failure in setting of excessive opiate use. Was treated with BiPAP and Narcan. During that hospitalization also had AARON (creatinine up to 2 with baseline creatitine of 0.6) and pneumonia. He was discharged on Triology and Omnicef. Later his oxycodone ER was reduced from 30 mg twice daily to 20 mg twice daily. Oxycodone was reduced from 15 mg every 6 hours as needed pain to 10 mg every 6 hours as needed pain Patient's states yesterday morning around 8:30 AM she checked on patient and he was wearing his BiPAP however she noted some condensation in facemask. She took facemask off and cleaned it. She noted that patient had altered mental status and was confused. This continued throughout the day and she has suggested that he go to the ER however he did not want to. reports she did not put patient's BiPAP on him last evening because she was afraid about the condensation. This morning when she woke up patient seemed increasingly confused and was having trouble arousing him. Patient was later brought to ER. She reports patient manages his own medications and she is unsure if patient took his medications or what medications he took today. Also reports that pt having difficulty urinating past couple of days. Today in ER it is reported patient was noted to be hypoxic at 89% on room air, afebrile, tachycardic at 106 and somnolent.ABG: pH: 7.2, PO2: 118, PCO2: 53, HCO3: 23. BUN: 62, CR: 3, chest x-ray question pneumonitis versus atelectasis right lower lobe, pulmonary vascular congestion In ER was ordered 1 L NSS, 1 hour albuterol neb, Lasix 40 mg IV, Zosyn, Levaquin. Patient was initially placed on BiPAP with O2 sat from 89 to 96% and reported to become a little more alert. Later in ER course 0.2 Narcan was given and reported patient became more awake. Patient went to CT and back to ER was not placed back on BiPAP initially. BiPAP will be replaced with repeat ABG in 30 minutes Bladder scan 500 mL. Patient unable to urinate. Will need to place catheter Allergies Allergy/AdvReac Type Severity Reaction Status Date / Time ketorolac Allergy Unknown BURNING Verified 11/23/20 18:13 SENSATION tramadol Allergy Unknown GI UPSET Verified 11/23/20 18:13 ciprofloxacin [From Cipro] AdvReac Intermediate upset Verified 11/23/20 18:13 stomach Home Medications Medication Instructions Recorded Confirmed Type losartan 100 mg PO DAILY 04/21/18 11/23/20 History metoprolol succinate 50 mg PO DAILY 11/28/18 11/23/20 History Lantus Solostar U-100 Insulin 20 unit SUBCUT DAILY 12/12/19 11/23/20 History metformin 1,000 mg PO BID 12/12/19 11/23/20 History ondansetron 4 mg TRANSLINGUAL Q8 PRN 12/12/19 11/23/20 History sertraline [Zoloft] 50 mg PO HS #30 tab 12/14/19 Rx amlodipine 10 mg PO DAILY 11/23/20 11/23/20 History oxycodone 10 mg PO Q6H PRN 11/23/20 11/23/20 History oxycodone [OxyContin] 20 mg PO DAILY 11/23/20 11/23/20 History pantoprazole 40 mg PO DAILY 11/23/20 11/23/20 History pregabalin 225 mg PO TID 11/23/20 11/23/20 History sertraline 100 mg PO DAILY 11/23/20 11/23/20 History thiamine HCl (vitamin B1) [Vitamin 100 mg PO DAILY 11/23/20 11/23/20 History B-1] Past Med/Surg History Medical History Acquired claw toe of left foot Anxiety Callus Charcot's joint of right foot Charcot's joint, left ankle and foot Chronic narcotic use Chronic pain Chronic ulcer of left midfoot Depression Diabetes mellitus with diabetic polyneuropathy DMII (diabetes mellitus, type 2) GERD (gastroesophageal reflux disease) HTN (hypertension) Morbid obesity due to excess calories Multiple rib fractures involving four or more ribs OA (osteoarthritis) of knee ENRIQUE (obstructive sleep apnea) Smoker Surgical History H/O knee surgery History of bilateral knee replacement S/P trigger finger release Family History Father Lung cancer Mother Hypertension Dementia Social History Smoking Status: Current every day smoker Tobacco Type: Cigarettes Cigarettes Per Day: 20; Second Hand Exposure: No; Do You Dip or Chew Tobacco: No; Tobacco Cessation Education Requested by Patient: No Hx Alcohol Use: Yes Alcohol type: beer Hx Substance Use: No Preferred Language: Belarusian Communication Ability: Effective Visual Impairment: No Limitations Pad Machine Feeder Required: No Beliefs That Will Affect Care: None marital status: Current Living Situation: Family Other Information That Helps Us Care for You: No Feels Safe at Home: Yes Assistive Devices: Cane Review of Systems Review of Systems: All systems reviewed & are unremarkable except as noted in HPI & below Physical Exam Physical Exam: General: +obese, currently awake but starts to fall asleep during conversation Head: normocephalic, atraumatic Eyes: pupils constricted, reactive, conjunctiva non-injected, anicteric ENT: normal inspection external ears, nose, mucous membranes moist Neck: supple, trachea midline Lungs: no respiratory distress, 96% on RA, coarse breath sounds CV: tachycardia, rate 106, 2+ pretibial edema RLE Abd: protuberant, normal BS, soft, no apparent tenderness to palpation Ext: LLE: BKA ambulation; no erythema, +venous stasis skin changes Neuro: Awake but drowsy, oriented to year, person, place Skin: warm, dry Results & Data Results & Data ([facility]) Vital Signs (Past 12 Hours) Vital Signs Temp Pulse Pulse Resp BP Pulse Ox 11/23/20 16:00 96 H 19 152/101 H 100 11/23/20 15:31 101 H 12 120/86 93 11/23/20 15:20 103 H 19 96 11/23/20 15:11 92 11/23/20 15:00 103 H 18 118/81 95 11/23/20 14:53 102 H 13 94 11/23/20 14:38 101 H 19 97 11/23/20 13:53 36.6 C 106 H 22 111/69 89 L Laboratory Results Short CBC 11/23/20 Range/Units 14:32 WBC 9.31 (4.8-10.8) K/uL Hgb 12.1 L (14.0-18.0) g/dL Hct 37.1 L (42-52) % Plt Count 180 (130-400) K/uL BMP 11/23/20 14:32 Sodium 132 L Potassium 4.8 Chloride 97 L Carbon Dioxide 25 BUN 62 H Creatinine 3.01 H Glucose 113 H Calcium 9.7 Cardiac Enzymes 11/23/20 Range/Units 14:32 Troponin I 0.016 (0-0.045) ng/ml Liver Function 11/23/20 Range/Units 14:32 Total Bilirubin 0.4 (0.2-1) mg/dl AST 69 H (15-37) U/L ALT 35 (12-78) U/L Alkaline Phosphatase 120 H (45-117) U/L Albumin 3.2 L (3.4-5.0) gm/dl Diagnostic Findings Chest X-Ray 11/23/20 14:25 XR chest 1V portable HISTORY: 65 years-old Male Chest Pain acute atypical chest pain COMPARISON: Chest radiograph 12/12/2019 TECHNIQUE: Portable AP view of the chest FINDINGS: Cardiac silhouette is upper limits of normal in size. Pulmonary vascular congestion. Mild interstitial coarsening of the lung right greater than left lung bases. No pneumothorax, pleural effusion or lobar airspace consolidation. Degenerative changes of the spine and left shoulder. IMPRESSION: 1. Cardiomegaly with pulmonary vascular congestion. 2. Mild asymmetric interstitial coarsening of the right lung base suggestive of atelectasis versus pneumonitis. ACT 112: Negative or not required by law. The above report was generated using voice recognition software. It may contain grammatical, syntax or spelling errors. Electronically signed by: Mak Robledo M.D. 11/23/2020 2:48 PM Abdomen/Pelvis CT 11/23/20 15:[address] WITHOUT CONTRAST CT DOSE: 2701.92 mGy.cm HISTORY: Acute renal failure Pt c/o ARF TECHNIQUE: Multiaxial CT images of the abdomen and pelvis were performed without contrast. A dose lowering technique was utilized adhering to the principles of ALARA. COMPARISON STUDY: CT abdomen and pelvis 08/03/2019 FINDINGS: Cardiomegaly. Coronary artery calcifications. Patchy consolidative bibasilar opacities, right greater than left. No pneumatosis or pneumoperitoneum. Spleen is enlarged measuring up to 17 cm in length. Limited evaluation of the solid abdominal organs without the use of IV contrast. Unremarkable pancreas, gallbladder and adrenal glands. Cirrhosis with hepatic steatosis. Unremarkable kidneys. No hydronephrosis. Mild urinary bladder distention. Small fat filled right inguinal hernia. Atherosclerosis of the aorta without aneurysm. There is no adenopathy. Mild wall thickening of the distal esophagus which is fluid-filled. No bowel obstruction or bowel wall thickening. The appendix is not visualized. No secondary signs of acute appendicitis. No ascites or mesenteric inflammation. Small fat and fluid filled periumbilical hernia. Degenerative changes of the spine, pelvis and hips. Healed chronic right-sided rib fractures. No acute fracture identified. IMPRESSION: 1. No urolith or obstructive uropathy. 2. Bibasilar patchy consolidative opacities are suggestive of multifocal pneumonia. 3. Cirrhosis with hepatic steatosis. 4. Splenomegaly. 5. No bowel obstruction or bowel wall thickening. 6. Small fat and fluid filled periumbilical hernia. ACT 112: Negative or not required by law. The above report was generated using voice recognition software. It may contain grammatical, syntax or spelling errors. Electronically signed by: Mak Robledo M.D. 11/23/2020 5:[address] 11/23/20 15:45 CT head/brain wo con CLINICAL HISTORY: 65 years-old Male with AMS. Acutely altered mental status TECHNIQUE: Multiple axial CT images of the head were obtained without contrast. A dose lowering technique was utilized adhering to the principles of ALARA. COMPARISON: Head CT 12/12/2019 FINDINGS: No acute intracranial hemorrhage, midline shift, intracranial mass, hydrocephalus, territorial ischemia or abnormal extra-axial collection. Mild involutional changes. The calvarium is intact. The paranasal sinuses, mastoid air cells, and middle ear cavities are clear. IMPRESSION: No acute intracranial abnormality. ACT 112: Negative or not required by law. The above report was generated using voice recognition software. It may contain grammatical, syntax or spelling errors. Electronically signed by: Mak Robledo M.D. 11/23/2020 5:41 PM ECG Rate (beats per minute): 99 Rhythm: sinus rhythm Additional Comments: t wave abnormality inferior Supervising Physician Co-Signing Physician Notes Patient seen and examined by me, care created with Lorin Jin PA-C, please refer to her note above for further detail. Patient is a 65-year-old male, with history of ENRIQUE, CPAP/BiPAP use, chronic narcotic use, who presents with altered mental status, hypercapnic and with AARON. Patient was not using his trilogy machine last night, also has had difficulty urinating for past 2 days. After catheter was placed in ER, patient drained 1300 cc of urine. ABG significant for acidosis. Some improvement with BiPAP in the ED and Narcan. On my evaluation patient is able to tell me that he is in the hospital and correct year however he keeps falling asleep and needs to be prompted, does not answer all questions appropriately, at the bedside provides most of the history. He is slightly tachycardic, breath sounds are diminished, with some bibasilar crackles, no wheezing noted. Abdomen is somewhat distended, nontender to palpation, obese, positive bowel sounds. Left BKA noted. At least 1+ LE pitting edema bilaterally. Skin is warm and dry. Again provided with Narcan, placed patient on BiPAP, adjusted settings. Discussed with ICU, patient will be admitted for close monitoring in the ICU, possible intubation for airway protection. Closely monitor renal function, repeat BMP, nephrology consulted. Alpesh Da Silva MD
--- NOTE | 2020-11-23 17:42 | CT Scan Report ---
CT head/brain wo con CLINICAL HISTORY: 65 years-old Male with AMS. Acutely altered mental status TECHNIQUE: Multiple axial CT images of the head were obtained without contrast. A dose lowering tech nique was utilized adhering to the principles of ALARA. COMPARISON: Head CT 12/12/2019 FINDINGS: No acute intracranial hemorrhage, midline shift, intracranial mass, hydrocephalus, territorial ischem ia or abnormal extra-axial collection. Mild involutional changes. The calvarium is intact. The paranasal sinuses, mastoid air cells, and middle ear cavities are clear . IMPRESSION: No acute intracranial abnormality. ACT 112: Negative or not required by law. The above report was generated using voice recognition software. It may contain grammatical, syntax o r spelling errors. Electronically signed by: Mak Robledo M.D. 11/23/2020 5:41 PM
--- NOTE | 2020-11-23 17:55 | CT Scan Report ---
ABDOMEN AND PELVIS CT WITHOUT CONTRAST CT DOSE: 2701.92 mGy.cm HISTORY: Acute renal failure Pt c/o ARF TECHNIQUE: Multiaxial CT images of the abdomen and pelvis were performed without contrast. A dose lo wering technique was utilized adhering to the principles of ALARA. COMPARISON STUDY: CT abdomen and pelvis 08/03/2019 FINDINGS: Cardiomegaly. Coronary artery calcifications. Patchy consolidative bibasilar opacities, rig ht greater than left. No pneumatosis or pneumoperitoneum. Spleen is enlarged measuring up to 17 cm in length. Limited evaluation of the solid abdominal organs without the use of IV contrast. Unremarkabl e pancreas, gallbladder and adrenal glands. Cirrhosis with hepatic steatosis. Unremarkable kidneys. No hydronephrosis. Mild urinary bladder distention. Small fat filled right ingu inal hernia. Atherosclerosis of the aorta without aneurysm. There is no adenopathy. Mild wall thicken ing of the distal esophagus which is fluid-filled. No bowel obstruction or bowel wall thickening. The appendix is not visualized. No secondary signs of acute appendicitis. No ascites or mesenteric infla mmation. Small fat and fluid filled periumbilical hernia. Degenerative changes of the spine, pelvis a nd hips. Healed chronic right-sided rib fractures. No acute fracture identified. IMPRESSION: 1. No urolith or obstructive uropathy. 2. Bibasilar patchy consolidative opacities are suggestive of multifocal pneumonia. 3. Cirrhosis with hepatic steatosis. 4. Splenomegaly. 5. No bowel obstruction or bowel wall thickening. 6. Small fat and fluid filled periumbilical hernia. ACT 112: Negative or not required by law. The above report was generated using voice recognition software. It may contain grammatical, syntax o r spelling errors. Electronically signed by: Mak Robledo M.D. 11/23/2020 5:54 PM
[2020-11-23 18:18] LABS: Base Excess ABG -5.2 mEq/L (-9-1.8); HCO3 ABG 21 mmol/L (19-24); Oxygen Saturation ABG 98.5 % (90-95); PCO2 ABG 45 mmHg (35-46); PO2 ABG 128 mmHg (80-95)
[2020-11-23 18:19] LABS: Allen Test Pos (Pos)
[2020-11-23 18:44] LABS: Appearance Urine Clear (Clear); Bilirubin Urine Negative (Negative); Blood Urine Negative (Negative); Color Urine Dark Yellow; Glucose Urine UA Negative (Negative); Ketones Urine Negative (Negative); Leukocyte Esterase Urine Negative (Negative); Nitrite Urine Negative (Negative); Protein Urine Negative (Negative); Specific Gravity Urine 1.016 (1.000-1.030); Urobilinogen Urine Negative (Negative)
[2020-11-23 19:03] LABS: Amphetamines+Metham, Urine Neg (Neg); Barbiturates, Urine Neg (Neg); Benzodiazepine, Urine Neg (Neg); Cocaine, Urine Neg (Neg); MDMA (Ecstacy), Urine Neg (Neg); Methadone, Urine Neg (Neg); Opiate, Urine Pos (Neg); Phencyclidine, Urine Neg (Neg)
--- NOTE | 2020-11-23 19:32 | Emergency Department Note ---
Impression & Plan Acute respiratory failure, Metabolic encephalopathy, AARON (acute kidney injury), Narcotic overdose ED Provider Note NAME: MOOSE ANN AGE: 65 SEX: M : 1955 ARRIVES VIA: Walk-In INFORMANT: Patient, ED PROVIDER(S): Elton Velazquez MD CHIEF COMPLAINT: Syncope HPI: This 65-year-old male who presents the emergency department complaining of shortness of breath. Per the , the patient was recently admitted to [facility] in September over concerns that he was overmedicated. The patient did not feel he was. The patient's is concerned because he vomited 2 nights ago and has taken him off of his BiPAP at night. The patient has been very difficult to arouse today and has been passing out. He falls asleep on interview as well as physical examination. The patient himself has no compl aints. ROS: Unobtainable due to patient's acuity PAST MEDICAL HISTORY: See Below PAST SURGICAL HISTORY: See Below FAMILY HISTORY: See Below SOCIAL HISTORY: See Below HOME MEDICATIONS: See Below ALLERGIES: See Below VITALS: See Below PHYSICAL EXAMINATION: VITAL SIGNS - Vital signs and nursing notes were reviewed. GENERAL - 65-year-old male appearing stated age who is in no acute distress. Falls asleep repeatedly on physical examination SKIN - Without rashes. HEAD - NC/AT. EYES - PERRL with EOMI bilaterally. Sclera anicteric. Palpebral conjunctiva pink and moist with no injection noted. EARS - No deformities of external structures noted on gross examination bilaterally. NOSE - Midline and without cyanosis. No epistaxis or purulent drainage noted. Septum midline without deviation or septal hematoma noted. MOUTH/OROPHARYNX - Without perioral cyanosis. Buccal mucosa pink and moist and without leukoplakia. Tongue midline with equal elevation of palate bilaterally. No tonsillar hypertrophy, erythema, or exudates noted. NECK - Neck with FROM. Supple to palpation. No nuchal rigidity. LUNGS - Chest wall symmetric without accessory muscle use, intercostals retractions, or central cyanosis. Normal vesicular breath sounds CTA B/L. No wheezes, rales, or rhonchi appreciated. CARDIAC - RRR with S1/S2. No murmur, rubs, or gallops appreciated. ABDOMEN - Abdominal contour without pulsations or visible masses. BS normoactive all four quadrants. No tenderness, palpable masses, hepatosplenomegaly, or ascites noted. EXTREMITIES - No clubbing or peripheral cyanosis. No pretibial edema present. +3/5 radial, posterior tibial, and dorsalis pedis pulses palpated throughout. +5/5 strength noted in UE/LE bilaterally. NEUROLOGIC - Cranial nerves II through XII grossly intact. Sensory intact to light touch throughout. Patellar reflexes +2/4. MEDICAL DECISION MAKING: Patient was seen and evaluated as above in room B7. Review was performed of nurs ing notes and vital signs. I did review pertinent previous visits and patient history. After obtaining a thorough history and physical examination the above work up was performed. This is a 65-year-old male who presents emergency department complaining of shortness of breath. The patient is hypoxic on physical examination and repeatedly falls asleep due to this I am concerned that his CO2 level is high. He was placed on BiPAP and a gas was obtained in the meanwhile the patient was given Narcan. The patient was upset because he felt that this would put him into withdrawal. In the meantime he was sent for a CAT scan of the abdomen pelvis as he is in acute renal failure. He was given a normal saline bolus here and started on broad-spectrum antibiotics for what appears to be pneumonia on his chest x-ray. He was started on Zosyn as well as Levaquin. An order was placed for continuous cardiac monitoring. The monitor shows a rate of 106 with Normal Sinus rhythm. The patient was evaluated during a period of high volume and high acuity during the global COVID-19 pandemic, and that diagnosis was suspected/considered upon their initial presentation. Their evaluation, treatment and testing was consistent with current guidelines for patients who present with complaints or symptoms that may be related to COVID-19. Patient was seen while provider was wearing PPE. Triage Nursing notes reviewed. Prior medical records reviewed Vital Signs: reviewed and remarkable for no significant abnormalities Differential diagnosis: Reactive airway disease, pneumonia, pneumothorax, COPD, CHF, infections, cardiac ischemia, pulmonary embolism, musculoskeletal, gastrointestinal, as well as other pathologies. ER treatment provided: See below Diagnostics interpreted by me: ECG: It normal sinus rhythm cannot rule anterior infarct QTC is 408 ventricular rate is 99 EKG is compared to 12/14/2019 ventricular rate has decreased by 46 Laboratory studies: As stated above and show below. Imaging studies: See below Consultation(s): Internal Medicine I have personally spent greater than 30 minutes of critical care time in the direct management of this patient. This includes bedside care, interpretation of diagnostic studies, and testing, discussion with consultants, patient, and family members, and other required patient management activities. This 30 minutes is in excess of all separately billable procedures. Past Med/Surg History Medical History Acquired claw toe of left foot Anxiety Callus Charcot's joint of right foot Charcot's joint, left ankle and foot Chronic narcotic use Chronic pain Chronic ulcer of left midfoot Depression Diabetes mellitus with diabetic polyneuropathy DMII (diabetes mellitus, type 2) GERD (gastroesophageal reflux disease) HTN (hypertension) Morbid obesity due to excess calories Multiple rib fractures involving four or more ribs OA (osteoarthritis) of knee ENRIQUE (obstructive sleep apnea) Smoker Surgical History H/O knee surgery History of bilateral knee replacement S/P trigger finger release Family History Father Lung cancer Mother Hypertension Dementia Social History Smoking Status: Current every day smoker Tobacco Type: Cigarettes Cigarettes Per Day: 20; Second Hand Exposure: No; Do You Dip or Chew Tobacco: No; Tobacco Cessation Education Requested by Patient: No Hx Alcohol Use: Yes Alcohol type: beer Hx Substance Use: No Preferred Language: French Communication Ability: Effective Visual Impairment: No Limitations Floor Installer Required: No Beliefs That Will Affect Care: None marital status: Current Living Situation: Family Other Information That Helps Us Care for You: No Feels Safe at Home: Yes Assistive Devices: Cane Allergies Allergies Allergy/AdvReac Type Severity Reaction Status Date / Time ketorolac Allergy Unknown BURNING Verified 11/23/20 18:13 SENSATION tramadol Allergy Unknown GI UPSET Verified 11/23/20 18:13 ciprofloxacin [From Cipro] AdvReac Intermediate upset Verified 11/23/20 18:13 stomach Home Meds Home Medications Medication Instructions Recorded Confirmed losartan 100 mg PO DAILY 04/21/18 11/23/20 metoprolol succinate 50 mg PO DAILY 11/28/18 11/23/20 Lantus Solostar U-100 Insulin 20 unit SUBCUT DAILY 12/12/19 11/23/20 metformin 1,000 mg PO BID 12/12/19 11/23/20 ondansetron 4 mg TRANSLINGUAL Q8 PRN 12/12/19 11/23/20 amlodipine 10 mg PO DAILY 11/23/20 11/23/20 oxycodone 10 mg PO Q6H PRN 11/23/20 11/23/20 oxycodone [OxyContin] 20 mg PO DAILY 11/23/20 11/23/20 pantoprazole 40 mg PO DAILY 11/23/20 11/23/20 pregabalin 225 mg PO TID 11/23/20 11/23/20 sertraline 100 mg PO DAILY 11/23/20 11/23/20 thiamine HCl (vitamin B1) [Vitamin 100 mg PO DAILY 11/23/20 11/23/20 B-1] Previous Rx's Medication Instructions Recorded sertraline [Zoloft] 50 mg PO HS #30 tab 12/14/19 Results & Data (ED) Vital Signs Vital Signs - 24 hr 11/23/20 13:53 11/23/20 14:38 11/23/20 14:53 Temperature 36.6 C Temperature Source Oral Pulse Rate 106 H 101 H 102 H Pulse Rate [Apical] Pulse Rate from SpO2 Sensor 102 H Respiratory Rate 22 19 13 Respiratory Effort / Characteristics Spontaneous Blood Pressure 111/69 Blood Pressure [Left Arm] Blood Pressure Mean 83 Blood Pressure Mean [Left Arm] Blood Pressure Position [Left Arm] Pulse Oximetry 89 L 97 94 Oxygen Delivery Method Room Air Fraction of Inspired Oxygen 30 Sepsis Recent Fever Within 48 Hours No Sepsis New/Unexplained Change in Mental Status No Sepsis Action Taken by Nursing No Action Required 11/23/20 15:00 11/23/20 15:11 11/23/20 15:20 Temperature Temperature Source Pulse Rate 103 H Pulse Rate [Apical] 103 H Pulse Rate from SpO2 Sensor 103 H Respiratory Rate 18 19 Respiratory Effort / Characteristics Spontaneous Blood Pressure 118/81 Blood Pressure [Left Arm] Blood Pressure Mean 93 Blood Pressure Mean [Left Arm] Blood Pressure Position [Left Arm] Pulse Oximetry 95 92 96 Oxygen Delivery Method BiPAP Room Air Nasal Cannula BiPAP Fraction of Inspired Oxygen 3 30 Sepsis Recent Fever Within 48 Hours Sepsis New/Unexplained Change in Mental Status Sepsis Action Taken by Nursing 11/23/20 15:31 11/23/20 16:00 11/23/20 16:31 Temperature Temperature Source Pulse Rate 101 H 96 H 106 H Pulse Rate [Apical] Pulse Rate from SpO2 Sensor 102 H 97 H 105 H Respiratory Rate 12 19 15 Respiratory Effort / Characteristics Blood Pressure 120/86 152/101 H 118/70 Blood Pressure [Left Arm] Blood Pressure Mean 97 118 86 Blood Pressure Mean [Left Arm] Blood Pressure Position [Left Arm] Pulse Oximetry 93 100 97 Oxygen Delivery Method BiPAP BiPAP Fraction of Inspired Oxygen Sepsis Recent Fever Within 48 Hours Sepsis New/Unexplained Change in Mental Status Sepsis Action Taken by Nursing 11/23/20 17:00 11/23/20 17:30 11/23/20 18:30 Temperature Temperature Source Pulse Rate 105 H 104 H Pulse Rate [Apical] 104 H Pulse Rate from SpO2 Sensor 105 H 104 H Respiratory Rate 22 14 21 Respiratory Effort / Characteristics Blood Pressure 111/73 125/97 Blood Pressure [Left Arm] 112/73 Blood Pressure Mean 85 106 Blood Pressure Mean [Left Arm] 86 Blood Pressure Position [Left Arm] Pulse Oximetry 98 98 100 Oxygen Delivery Method BiPAP Fraction of Inspired Oxygen Sepsis Recent Fever Within 48 Hours Sepsis New/Unexplained Change in Mental Status Sepsis Action Taken by Nursing 11/23/20 19:00 11/23/20 19:04 Temperature Temperature Source Pulse Rate 108 H Pulse Rate [Apical] 106 H Pulse Rate from SpO2 Sensor 107 H Respiratory Rate 21 18 Respiratory Effort / Characteristics Blood Pressure 124/62 Blood Pressure [Left Arm] 124/62 Blood Pressure Mean 82 Blood Pressure Mean [Left Arm] 82 Blood Pressure Position [Left Arm] Lying Pulse Oximetry 98 98 Oxygen Delivery Method BiPAP Fraction of Inspired Oxygen Sepsis Recent Fever Within 48 Hours Sepsis New/Unexplained Change in Mental Status Sepsis Action Taken by Detention Medications Current Medication List: was personally reviewed by me Laboratory Data Attestation: I reviewed the patient's lab results. Result diagrams: 11/23/20 14:32 11/23/20 14:32 Lab Results 11/23/20 11/23/20 11/23/20 Range/Units 14:32 14:32 14:32 WBC 9.31 (4.8-10.8) K/uL RBC 4.17 L (4.7-6.1) M/uL Hgb 12.1 L (14.0-18.0) g/dL Hct 37.1 L (42-52) % MCV 89.0 (80-100) fL MCH 29.0 (25-34) pg MCHC 32.6 (32-36) g/dL RDW Std Deviation 51.1 H (36.4-46.3) fL RDW Coeff of Madelyn 15.7 H (11.5-14.5) % Plt Count 180 (130-400) K/uL MPV 11.7 H (7.4-10.4) fL Immature Gran % (Auto) 0.3 % Neut % (Auto) 79.1 % Lymph % (Auto) 8.8 % Baker % (Auto) 11.3 % Eos % (Auto) 0.4 % Baso % (Auto) 0.1 % Neut # (Auto) 7.36 H (1.4-6.5) K/uL Lymph # (Auto) 0.82 L (1.2-3.4) K/uL Baker # (Auto) 1.05 H (0.11-0.59) K/uL Eos # (Auto) 0.04 (0-0.5) K/uL Baso # (Auto) 0.01 (0-0.2) K/uL Immature Gran # (Auto) 0.03 H (0.00-0.02) K/uL APTT 29.4 (21.0-31.0) Seconds PTT Ratio 1.1 ABG pH (7.35-7.45) ABG pCO2 (35-46) mmHg ABG pO2 (80-95) mmHg ABG HCO3 (19-24) mmol/L ABG O2 Saturation (90-95) % ABG Base Excess (-9-1.8) mEq/L Frank Test (Pos) Barometric Pressure mm/Hg Oxygen Given Sodium 132 L (136-145) mmol/L Potassium 4.8 (3.5-5.1) mmol/L Chloride 97 L (98-107) mmol/L Carbon Dioxide 25 (21-32) mmol/L Anion Gap 9.0 (3-11) BUN 62 H (7-18) mg/dl Creatinine 3.01 H (0.6-1.4) mg/dl Est Cr Clr Drug Dosing 31.2 ml/min Est GFR ( Amer) 24.2 ml/min Est GFR (Non-Af Amer) 20.9 ml/min BUN/Creatinine Ratio 20.6 H (10-20) Glucose 113 H (70-99) mg/dl Lactate (0.4-2.0) mmol/L Calcium 9.7 (8.5-10.1) mg/dl Total Bilirubin 0.4 (0.2-1) mg/dl AST 69 H (15-37) U/L ALT 35 (12-78) U/L Alkaline Phosphatase 120 H (45-117) U/L Ammonia (11-32) umol/L Troponin I 0.016 (0-0.045) ng/ml NT-Pro-B Natriuret Pep 2148 H (0-900) pg/ml Total Protein 8.1 (6.4-8.2) gm/dl Albumin 3.2 L (3.4-5.0) gm/dl Globulin 4.9 H (2.5-4.0) gm/dl Albumin/Globulin Ratio 0.7 L (0.9-2) Lipase 87 (73-393) U/L Procalcitonin (0-0.5) ng/ml Urine Color Urine Appearance (Clear) Urine pH (4.5-7.5) Ur Specific [place] (1.000-1.030) Urine Protein (Negative) Urine Glucose (UA) (Negative) Urine Ketones (Negative) Urine Blood (Negative) Urine Nitrite (Negative) Urine Bilirubin (Negative) Urine Urobilinogen (Negative) Ur Leukocyte Esterase (Negative) Urine Opiates Screen (Neg) Ur Methadone, Qual (Neg) Urine Barbiturates (Neg) Ur Phencyclidine (PCP) (Neg) U Amphetamin/Meth Scrn (Neg) MDMA (Ecstasy) Screen (Neg) U Benzodiazepines Scrn (Neg) Ur Cocaine Metabolite (Neg) U Marijuana (THC) Screen (Neg) COVID-19 Eval Order SARS-CoV-2 (PCR) (Negative) 11/23/20 11/23/20 11/23/20 Range/Units 14:33 14:40 15:40 WBC (4.8-10.8) K/uL RBC (4.7-6.1) M/uL Hgb (14.0-18.0) g/dL Hct (42-52) % MCV (80-100) fL MCH (25-34) pg MCHC (32-36) g/dL RDW Std Deviation (36.4-46.3) fL RDW Coeff of Madelyn (11.5-14.5) % Plt Count (130-400) K/uL MPV (7.4-10.4) fL Immature Gran % (Auto) % Neut % (Auto) % Lymph % (Auto) % Baker % (Auto) % Eos % (Auto) % Baso % (Auto) % Neut # (Auto) (1.4-6.5) K/uL Lymph # (Auto) (1.2-3.4) K/uL Baker # (Auto) (0.11-0.59) K/uL Eos # (Auto) (0-0.5) K/uL Baso # (Auto) (0-0.2) K/uL Immature Gran # (Auto) (0.00-0.02) K/uL APTT (21.0-31.0) Seconds PTT Ratio ABG pH 7.26 L (7.35-7.45) ABG pCO2 53 H (35-46) mmHg ABG pO2 118 H (80-95) mmHg ABG HCO3 23 (19-24) mmol/L ABG O2 Saturation 97.9 H (90-95) % ABG Base Excess -4.5 (-9-1.8) mEq/L Frank Test Pos (Pos) Barometric Pressure 732.1 mm/Hg Oxygen Given 30% Sodium (136-145) mmol/L Potassium (3.5-5.1) mmol/L Chloride (98-107) mmol/L Carbon Dioxide (21-32) mmol/L Anion Gap (3-11) BUN (7-18) mg/dl Creatinine (0.6-1.4) mg/dl Est Cr Clr Drug Dosing ml/min Est GFR ( Amer) ml/min Est GFR (Non-Af Amer) ml/min BUN/Creatinine Ratio (10-20) Glucose (70-99) mg/dl Lactate (0.4-2.0) mmol/L Calcium (8.5-10.1) mg/dl Total Bilirubin (0.2-1) mg/dl AST (15-37) U/L ALT (12-78) U/L Alkaline Phosphatase (45-117) U/L Ammonia (11-32) umol/L Troponin I (0-0.045) ng/ml NT-Pro-B Natriuret Pep (0-900) pg/ml Total Protein (6.4-8.2) gm/dl Albumin (3.4-5.0) gm/dl Globulin (2.5-4.0) gm/dl Albumin/Globulin Ratio (0.9-2) Lipase (73-393) U/L Procalcitonin 0.17 (0-0.5) ng/ml Urine Color Urine Appearance (Clear) Urine pH (4.5-7.5) Ur Specific [place] (1.000-1.030) Urine Protein (Negative) Urine Glucose (UA) (Negative) Urine Ketones (Negative) Urine Blood (Negative) Urine Nitrite (Negative) Urine Bilirubin (Negative) Urine Urobilinogen (Negative) Ur Leukocyte Esterase (Negative) Urine Opiates Screen (Neg) Ur Methadone, Qual (Neg) Urine Barbiturates (Neg) Ur Phencyclidine (PCP) (Neg) U Amphetamin/Meth Scrn (Neg) MDMA (Ecstasy) Screen (Neg) U Benzodiazepines Scrn (Neg) Ur Cocaine Metabolite (Neg) U Marijuana (THC) Screen (Neg) COVID-19 Eval Order Covid19 at [facility] SARS-CoV-2 (PCR) (Negative) 11/23/20 11/23/20 11/23/20 Range/Units 15:40 17:38 17:38 WBC (4.8-10.8) K/uL RBC (4.7-6.1) M/uL Hgb (14.0-18.0) g/dL Hct (42-52) % MCV (80-100) fL MCH (25-34) pg MCHC (32-36) g/dL RDW Std Deviation (36.4-46.3) fL RDW Coeff of Madelyn (11.5-14.5) % Plt Count (130-400) K/uL MPV (7.4-10.4) fL Immature Gran % (Auto) % Neut % (Auto) % Lymph % (Auto) % Baker % (Auto) % Eos % (Auto) % Baso % (Auto) % Neut # (Auto) (1.4-6.5) K/uL Lymph # (Auto) (1.2-3.4) K/uL Baker # (Auto) (0.11-0.59) K/uL Eos # (Auto) (0-0.5) K/uL Baso # (Auto) (0-0.2) K/uL Immature Gran # (Auto) (0.00-0.02) K/uL APTT (21.0-31.0) Seconds PTT Ratio ABG pH (7.35-7.45) ABG pCO2 (35-46) mmHg ABG pO2 (80-95) mmHg ABG HCO3 (19-24) mmol/L ABG O2 Saturation (90-95) % ABG Base Excess (-9-1.8) mEq/L Frank Test (Pos) Barometric Pressure mm/Hg Oxygen Given Sodium (136-145) mmol/L Potassium (3.5-5.1) mmol/L Chloride (98-107) mmol/L Carbon Dioxide (21-32) mmol/L Anion Gap (3-11) BUN (7-18) mg/dl Creatinine (0.6-1.4) mg/dl Est Cr Clr Drug Dosing ml/min Est GFR ( Amer) ml/min Est GFR (Non-Af Amer) ml/min BUN/Creatinine Ratio (10-20) Glucose (70-99) mg/dl Lactate 1.0 (0.4-2.0) mmol/L Calcium (8.5-10.1) mg/dl Total Bilirubin (0.2-1) mg/dl AST (15-37) U/L ALT (12-78) U/L Alkaline Phosphatase (45-117) U/L Ammonia 27.7 (11-32) umol/L Troponin I (0-0.045) ng/ml NT-Pro-B Natriuret Pep (0-900) pg/ml Total Protein (6.4-8.2) gm/dl Albumin (3.4-5.0) gm/dl Globulin (2.5-4.0) gm/dl Albumin/Globulin Ratio (0.9-2) Lipase (73-393) U/L Procalcitonin (0-0.5) ng/ml Urine Color Urine Appearance (Clear) Urine pH (4.5-7.5) Ur Specific [place] (1.000-1.030) Urine Protein (Negative) Urine Glucose (UA) (Negative) Urine Ketones (Negative) Urine Blood (Negative) Urine Nitrite (Negative) Urine Bilirubin (Negative) Urine Urobilinogen (Negative) Ur Leukocyte Esterase (Negative) Urine Opiates Screen (Neg) Ur Methadone, Qual (Neg) Urine Barbiturates (Neg) Ur Phencyclidine (PCP) (Neg) U Amphetamin/Meth Scrn (Neg) MDMA (Ecstasy) Screen (Neg) U Benzodiazepines Scrn (Neg) Ur Cocaine Metabolite (Neg) U Marijuana (THC) Screen (Neg) COVID-19 Eval Order SARS-CoV-2 (PCR) NEGATIVE (Negative) 11/23/20 11/23/20 11/23/20 Range/Units 18:05 18:37 18:37 WBC (4.8-10.8) K/uL RBC (4.7-6.1) M/uL Hgb (14.0-18.0) g/dL Hct (42-52) % MCV (80-100) fL MCH (25-34) pg MCHC (32-36) g/dL RDW Std Deviation (36.4-46.3) fL RDW Coeff of Madelyn (11.5-14.5) % Plt Count (130-400) K/uL MPV (7.4-10.4) fL Immature Gran % (Auto) % Neut % (Auto) % Lymph % (Auto) % Baker % (Auto) % Eos % (Auto) % Baso % (Auto) % Neut # (Auto) (1.4-6.5) K/uL Lymph # (Auto) (1.2-3.4) K/uL Baker # (Auto) (0.11-0.59) K/uL Eos # (Auto) (0-0.5) K/uL Baso # (Auto) (0-0.2) K/uL Immature Gran # (Auto) (0.00-0.02) K/uL APTT (21.0-31.0) Seconds PTT Ratio ABG pH 7.30 L (7.35-7.45) ABG pCO2 45 (35-46) mmHg ABG pO2 128 H (80-95) mmHg ABG HCO3 21 (19-24) mmol/L ABG O2 Saturation 98.5 H (90-95) % ABG Base Excess -5.2 (-9-1.8) mEq/L Frank Test Pos (Pos) Barometric Pressure 730.8 mm/Hg Oxygen Given 40% Sodium (136-145) mmol/L Potassium (3.5-5.1) mmol/L Chloride (98-107) mmol/L Carbon Dioxide (21-32) mmol/L Anion Gap (3-11) BUN (7-18) mg/dl Creatinine (0.6-1.4) mg/dl Est Cr Clr Drug Dosing ml/min Est GFR ( Amer) ml/min Est GFR (Non-Af Amer) ml/min BUN/Creatinine Ratio (10-20) Glucose (70-99) mg/dl Lactate (0.4-2.0) mmol/L Calcium (8.5-10.1) mg/dl Total Bilirubin (0.2-1) mg/dl AST (15-37) U/L ALT (12-78) U/L Alkaline Phosphatase (45-117) U/L Ammonia (11-32) umol/L Troponin I (0-0.045) ng/ml NT-Pro-B Natriuret Pep (0-900) pg/ml Total Protein (6.4-8.2) gm/dl Albumin (3.4-5.0) gm/dl Globulin (2.5-4.0) gm/dl Albumin/Globulin Ratio (0.9-2) Lipase (73-393) U/L Procalcitonin (0-0.5) ng/ml Urine Color Dark Yellow Urine Appearance Clear (Clear) Urine pH 5.0 (4.5-7.5) Ur Specific [place] 1.016 (1.000-1.030) Urine Protein Negative (Negative) Urine Glucose (UA) Negative (Negative) Urine Ketones Negative (Negative) Urine Blood Negative (Negative) Urine Nitrite Negative (Negative) Urine Bilirubin Negative (Negative) Urine Urobilinogen Negative (Negative) Ur Leukocyte Esterase Negative (Negative) Urine Opiates Screen Pos H (Neg) Ur Methadone, Qual Neg (Neg) Urine Barbiturates Neg (Neg) Ur Phencyclidine (PCP) Neg (Neg) U Amphetamin/Meth Scrn Neg (Neg) MDMA (Ecstasy) Screen Neg (Neg) U Benzodiazepines Scrn Neg (Neg) Ur Cocaine Metabolite Neg (Neg) U Marijuana (THC) Screen Neg (Neg) COVID-19 Eval Order SARS-CoV-2 (PCR) (Negative) Administered Medications Discontinued Medications Albuterol (Albut/Ipratrop 3mg/0.5mg Neb 3 Ml Vial) 12 ml NEB ONE ONE Stop: 11/23/20 14:27 Last Admin: 11/23/20 15:19 Dose: 12 ml Documented by: [id number] Furosemide (Furosemide 40 Mg/4 Ml Vial) 40 mg IV NOW STA Stop: 11/23/20 15:08 Last Admin: 11/23/20 16:03 Dose: 40 mg Documented by: [id number] Piperacillin Sod/Tazobactam Sod (Zosyn) 4.5 gm in 120 mls @ 240 mls/hr IV NOW ONE Stop: 11/23/20 15:36 Last Infusion: 11/23/20 17:56 Dose: 0 mls/hr Documented by: [id number] Admin: 11/23/20 17:22 Dose: 240 mls/hr Documented by: [id number] Levofloxacin/Dextrose (Levaquin/D5w) 750 mg in 150 mls @ 100 mls/hr IV NOW STA Stop: 11/23/20 16:36 Last Admin: 11/23/20 17:56 Dose: 100 mls/hr Documented by: [id number] Sodium Chloride (Nss 1000ml) 1,000 mls @ 999 mls/hr IV .Q1H1M ONE Stop: 11/23/20 16:13 Last Infusion: 11/23/20 17:24 Dose: 0 mls/hr Documented by: [id number] Admin: 11/23/20 16:03 Dose: 999 mls/hr Documented by: [id number] Naloxone HCl (Naloxone Hcl 0.4 Mg/1 Ml Vial/Carp) 0.2 mg IV NOW STA Stop: 11/23/20 15:39 Last Admin: 11/23/20 15:46 Dose: 0.2 mg Documented by: [id number] Naloxone HCl (Naloxone Hcl 0.4 Mg/1 Ml Vial/Carp) 0.4 mg IV NOW STA Stop: 11/23/20 17:44 Last Admin: 11/23/20 17:55 Dose: 0.4 mg Documented by: [id number] Imaging Data Radiologist's Impression: Chest X-Ray 11/23/20 14:25 XR chest 1V portable HISTORY: 65 years-old Male Chest Pain acute atypical chest pain COMPARISON: Chest radiograph 12/12/2019 TECHNIQUE: Portable AP view of the chest FINDINGS: Cardiac silhouette is upper limits of normal in size. Pulmonary vascular congestion. Mild interstitial coarsening of the lung right greater than left l juanjo bases. No pneumothorax, pleural effusion or lobar airspace consolidation. Degenerative changes of the spine and left shoulder. IMPRESSION: 1. Cardiomegaly with pulmonary vascular congestion. 2. Mild asymmetric interstitial coarsening of the right lung base suggestive of atelectasis versus pneumonitis. ACT 112: Negative or not required by law. The above report was generated using voice recognition software. It may contain grammatical, syntax or spelling errors. Electronically signed by: Mak Robledo M.D. 11/23/2020 2:48 PM Abdomen/Pelvis CT 11/23/20 15:[address] WITHOUT CONTRAST CT DOSE: 2701.92 mGy.cm HISTORY: Acute renal failure Pt c/o ARF TECHNIQUE: Multiaxial CT images of the abdomen and pelvis were performed without contrast. A dose lowering technique was utilized adhering to the principles of ALARA. COMPARISON STUDY: CT abdomen and pelvis 08/03/2019 FINDINGS: Cardiomegaly. Coronary artery calcifications. Patchy consolidative bibasilar opacities, right greater than left. No pneumatosis or pneumoperitoneum. Spleen is enlarged measuring up to 17 cm in length. Limited evaluation of the solid abdominal organs without the use of IV contrast. Unremarkable pancreas, gallbladder and adrenal glands. Cirrhosis with hepatic steatosis. Unremarkable kidneys. No hydronephrosis. Mild urinary bladder distention. Small fat filled right inguinal hernia. Atherosclerosis of the aorta without aneurysm. There is no adenopathy. Mild wall thickening of the distal esophagus which is fluid-filled. No bowel obstruction or bowel wall thickening. The appendix is not visualized. No secondary signs of acute appendicitis. No ascites or mesenteric inflammation. Small fat and fluid filled periumbilical hernia. Degenerative changes of the spine, pelvis and hips. Healed chronic right-sided rib fractures. No acute fracture identified. IMPRESSION: 1. No urolith or obstructive uropathy. 2. Bibasilar patchy consolidative opacities are suggestive of multifocal pneumonia. 3. Cirrhosis with hepatic steatosis. 4. Splenomegaly. 5. No bowel obstruction or bowel wall thickening. 6. Small fat and fluid filled periumbilical hernia. ACT 112: Negative or not required by law. The above report was generated using voice recognition software. It may contain grammatical, syntax or spelling errors. Electronically signed by: Mak Robledo M.D. 11/23/2020 5:[address] 11/23/20 15:45 CT head/brain wo con CLINICAL HISTORY: 65 years-old Male with AMS. Acutely altered mental status TECHNIQUE: Multiple axial CT images of the head were obtained without contrast. A dose lowering technique was utilized adhering to the principles of ALARA. COMPARISON: Head CT 12/12/2019 FINDINGS: No acute intracranial hemorrhage, midline shift, intracranial mass, hydrocephalus, territorial ischemia or abnormal extra-axial collection. Mild in volutional changes. The calvarium is intact. The paranasal sinuses, mastoid air cells, and middle ear cavities are clear. IMPRESSION: No acute intracranial abnormality. ACT 112: Negative or not required by law. The above report was generated using voice recognition software. It may contain grammatical, syntax or spelling errors. Electronically signed by: Mak Robledo M.D. 11/23/2020 5:41 PM Discharge Plan Visit Data Chief Complaint: Syncope Stated Complaint: WEAKNESS,SYNCOPE ED Provider: Elton Velazquez Discharge Problem: Acute respiratory failure, Metabolic encephalopathy, AARON (acute kidney injury), Narcotic overdose Forms Stand Alone Forms: [facility] Prescriptions Prescriptions: No Action metformin 500 mg tablet extended release 24 hr 1,000 mg PO BID RF: 0 ondansetron 4 mg tablet,disintegrating 4 mg translingual Q8 PRN (Reason: Nausea) RF: 0 Lantus Solostar U-100 Insulin 100 unit/mL (3 mL) Insulin Pen 20 unit SUBCUT DAILY RF: 0 sertraline [Zoloft] 50 mg tablet 50 mg PO HS Qty: 30 RF: 0 losartan 100 mg Tablet 100 mg PO DAILY RF: 0 metoprolol succinate 50 mg Tablet Extended Release 24 Hr 50 mg PO DAILY RF: 0 amlodipine 10 mg tablet 10 mg PO DAILY RF: 0 sertraline 100 mg tablet 100 mg PO DAILY RF: 0 pantoprazole 40 mg tablet,delayed release (DR/EC) 40 mg PO DAILY RF: 0 oxycodone 10 mg tablet 10 mg PO Q6H PRN (Reason: Pain) RF: 0 oxycodone [OxyContin] 20 mg tablet,oral only,ext.rel.12 hr 20 mg PO DAILY RF: 0 pregabalin 225 mg capsule 225 mg PO TID RF: 0 thiamine HCl (vitamin B1) [Vitamin B-1] 100 mg tablet 100 mg PO DAILY RF: 0 Referrals Referrals: Karlie Bates DO [Primary Care Provider] - Discharge Problem: Acute respiratory failure Qualifiers: Respiratory failure complication: unspecified whether with hypoxia or hypercapnia Qualified Code(s): J96.00 - Acute respiratory failure, unspecified whether with hypoxia or hypercapnia Narcotic overdose Qualifiers: Encounter type: initial encounter Injury intent: accidental or unintentional Qualified Code(s): T40.601A - Poisoning by unspecified narcotics, accidental (unintentional), initial encounter
[2020-11-23] MEDS ORDERED: ICU PROTOCOL FOR HYPERGLYCEMIA PRN ×2 (20:14→21:16)
--- NOTE | 2020-11-23 20:33 | Critical Care Consultation ---
Date of Consultation November 23, 2020 Assessment & Plan (1) Admitted to intensive care unit: Reason Critically Ill: 65-year-old male with acute hypoxic respiratory failure with hypercapnia as well as altered mental status in the setting of CO2 retention and possible prescription narcotic abuse in the setting of AARON requiring close monitoring for possible need for early intubation. NEURO - * CAM ICU: POSITIVE * Altered mental status: * Multifactorial in the setting of respiratory failure with CO2 retention, AARON with degree of uremia, and likely opioid accumulation in the setting of AARON as well. * CT head without acute findings. * No focal neurological deficits on exam. * Patient somnolent, but does answer questions and arouses to tactile and verbal stimuli. * Continue to monitor closely for worsening mental status. * Would proceed with intravenous Narcan first. * Low threshold for intubation for airway protection if necessary. * Chronic Pain: * On review of record, this does appear to be a least the second admission for similar symptomatology with altered mental status related to narcotic use. * Will hold on home narcotics currently well patient remains somnolent. CARDIAC/VASCULAR - * Hypertension: * Hold on home medicines as patient is with AARON and normotensive at this point. * EKG: Normal sinus rhythm at [address] or T wave changes noted. QTc 408 ms. * Monitor on telemetry. RESPIRATORY - * Acute hypoxic respiratory failure with hypercapnia: * As above. * Doing well on BiPAP settings currently. * Serial EKGs as needed. * Degree of pulmonary edema and possible pneumonia. Currently covered for both. * Low threshold for endotracheal intubation for protection if necessary. GI/NUTRITION - * N.p.o. while monitoring mental status and for possible need for intubation. RENAL/LYTES - * AARON: * Of questionable source at this time. * Received IV Lasix in the emergency department. * Currently making adequate amounts of urine. * Trend electrolytes. Replace appropriately. * Patient does appear to be clinically volume up. - * Moy in place - Strict I&Os. ENDO - * DMII * BSGs per unit protocol. ISS --> gtt per unit policy. HEME - * Stable H&H ID - * Concerns for pneumonia. * Received Levaquin and Zosyn in the emergency department. * Repeat chest x-ray in a.m. * Procalcitonin within normal limits * Can likely de-escalate antibiotics quickly. LINES/IV ACCESS - * PIVs x2 * Moy DVT PROPHYLAXIS - * Heparin * SCDs I have personally spent 45 minutes of critical care time in the direct management of this patient. This is a life/limb threatening event. This includes time spent evaluating patient, direct bedside care, chart review, placing orders, interpretation of diagnostic studies, discussion with consultants, patient, and family members, as well as other required patient management activities. This time is exclusive of all separately billable procedures, and teaching time and separate from and in addition to any other critical care service time. Thank you for allowing us to participate in the care of this patient. Please refer to my attending physician's documentation for any further 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s. (2) Altered mental status: (3) Acute respiratory failure: (4) Metabolic encephalopathy: (5) AARON (acute kidney injury): (6) Chronic narcotic use: (7) Pneumonia: (8) Fluid overload: (9) Narcotic abuse: History of Present Illness Attending Physician: Jaren Da Silva MD History of Present Illness Patient is a 65-year-old male with a significant past medical history of hypertension, obesity, depression, anxiety, obstructive sleep apnea, diabetes, Charcot foot, and status post amputation of the LEFT lower extremity. Patient is reliant on CPAP at home during bedtime which is questionable if he utilizes on a regular basis. Apparently, the patient was noted to be altered earlier this morning causing his to contact EMS. It is reported that the patient was noted to have condensation in his BiPAP facemask and it was felt best that he not utilize his CPAP overnight. Additionally, the patient does take a substantial amount of narcotic medications for chronic pain conditions. Upon arrival in the emergency department, the patient was noted to be altered. BiPAP was applied and the patient showed slight improvement. He received 0.2 mg of IV Narcan which did seem to help significantly improve symptoms. CT the head was obtained and demonstrated no acute findings otherwise. Patient did appear to have fluctuation of mental status while in the emergency department. There was concern for possible lower lobe infiltrate as well as pulmonary edema. The patient received antibiotic coverage as well as IV Lasix. Patient noted to have an AARON without other electrolyte derangements. Upon evaluation in the ICU, the patient is awake and alert. He knows that he is in the ICU at [facility]. He does appear lethargic and occasionally dozes off during conversation. History of present illness limited secondary to patient's current status. Allergies Allergy/AdvReac Type Severity Reaction Status Date / Time ketorolac Allergy Unknown BURNING Verified 11/23/20 18:13 SENSATION tramadol Allergy Unknown GI UPSET Verified 11/23/20 18:13 ciprofloxacin [From Cipro] AdvReac Intermediate upset Verified 11/23/20 18:13 stomach Home Medications Medication Instructions Recorded Confirmed Type losartan 100 mg PO DAILY 04/21/18 11/23/20 History metoprolol succinate 50 mg PO DAILY 11/28/18 11/23/20 History Lantus Solostar U-100 Insulin 20 unit SUBCUT DAILY 12/12/19 11/23/20 History metformin 1,000 mg PO BID 12/12/19 11/23/20 History ondansetron 4 mg TRANSLINGUAL Q8 PRN 12/12/19 11/23/20 History sertraline [Zoloft] 50 mg PO HS #30 tab 12/14/19 Rx amlodipine 10 mg PO DAILY 11/23/20 11/23/20 History oxycodone 10 mg PO Q6H PRN 11/23/20 11/23/20 History oxycodone [OxyContin] 20 mg PO DAILY 11/23/20 11/23/20 History pantoprazole 40 mg PO DAILY 11/23/20 11/23/20 History pregabalin 225 mg PO TID 11/23/20 11/23/20 History sertraline 100 mg PO DAILY 11/23/20 11/23/20 History thiamine HCl (vitamin B1) [Vitamin 100 mg PO DAILY 11/23/20 11/23/20 History B-1] Patient History Medical History Acquired claw toe of left foot Anxiety Callus Charcot's joint of right foot Charcot's joint, left ankle and foot Chronic narcotic use Chronic pain Chronic ulcer of left midfoot Depression Diabetes mellitus with diabetic polyneuropathy DMII (diabetes mellitus, type 2) GERD (gastroesophageal reflux disease) HTN (hypertension) Morbid obesity due to excess calories Multiple rib fractures involving four or more ribs OA (osteoarthritis) of knee ENRIQUE (obstructive sleep apnea) Smoker Surgical History H/O knee surgery History of bilateral knee replacement S/P trigger finger release Family History Father Lung cancer Mother Hypertension Dementia Social History Smoking Status: Current every day smoker Tobacco Type: Cigarettes Cigarettes Per Day: 20; Second Hand Exposure: No; Do You Dip or Chew Tobacco: No; Tobacco Cessation Education Requested by Patient: No Hx Alcohol Use: Yes Alcohol type: beer Hx Substance Use: No Preferred Language: Lao Communication Ability: Effective Visual Impairment: No Limitations Ssis Developer Required: No Beliefs That Will Affect Care: None marital status: Current Living Situation: Family Other Information That Helps Us Care for You: No Feels Safe at Home: Yes Assistive Devices: Cane Review of Systems Review of Systems: A complete 10 point review of systems was reviewed with the patient with pertinent positives and negatives as per history of present illness. All else were negative. Physical Exam Physical Exam: VITAL SIGNS - Vital signs and nursing notes were reviewed. GENERAL - 65-year-old male appearing his stated age who is in no acute distress. HEAD - Normocephalic, Atraumatic. EYES - PERRL with EOMI bilaterally. Sclera anicteric. Palpebral conjunctiva pink and moist with no injection noted. EARS - No deformities of external structures noted on gross examination bilaterally. NOSE - Midline and without cyanosis. No epistaxis or purulent drainage noted. MOUTH/OROPHARYNX - Without perioral cyanosis. Buccal mucosa pink and moist and without leukoplakia. NECK - Neck with FROM. Supple to palpation. LUNGS - Chest wall symmetric without accessory muscle use, intercostals retractions, or central cyanosis. Normal vesicular breath sounds CTA B/L. No wheezes, rales, or rhonchi appreciated. CARDIAC - RRR with S1/S2. No murmur, rubs, or gallops appreciated. ABDOMEN - Abdominal contour obese without pulsations or visible masses. BS normoactive all four quadrants. No tenderness, palpable masses, hepatosplenomegaly, or ascites noted. EXTREMITIES - No pretibial edema present. +3/5 radial pulses palpated throughout. LLE BKA. NEUROLOGIC - Cranial nerves II through XII grossly intact. PSYCH -patient somnolent, but does awake with verbal and tactile stimuli. He knows that he is currently admitted to the ICU in [place]. He knows it is 2020. He knows that the month is November. He is pleasantly confused otherwise. Results & Data Results & Data ([facility]) Vital Signs (Past 12 Hours) Vital Signs Temp Pulse Pulse Resp BP BP Pulse Ox 11/23/20 19:20 105 H 23 97 11/23/20 19:04 106 H 18 124/62 98 11/23/20 19:00 108 H 21 124/62 98 11/23/20 18:30 104 H 21 125/97 100 11/23/20 17:30 105 H 14 111/73 98 11/23/20 17:00 104 H 22 112/73 98 11/23/20 16:31 106 H 15 118/70 97 11/23/20 16:00 96 H 19 152/101 H 100 11/23/20 15:31 101 H 12 120/86 93 11/23/20 15:20 103 H 19 96 11/23/20 15:11 92 11/23/20 15:00 103 H 18 118/81 95 11/23/20 14:53 102 H 13 94 11/23/20 14:38 101 H 19 97 11/23/20 13:53 36.6 C 106 H 22 111/69 89 L Coding Level of Care Code Critical Care 1st 30-74 mins Diagnoses Admitted to intensive care unit Z78.9 Altered mental status R41.0 Altered mental status type: disorientation Acute respiratory failure J96.00 Respiratory failure complication: unspecified whether with hypoxia or hypercapnia Metabolic encephalopathy G93.41 AARON (acute kidney injury) N17.9 Chronic narcotic use F11.90 Pneumonia J18.9 Fluid overload E87.70 Narcotic abuse F11.10 Time Spent (min) 45 (1) Altered mental status Altered mental status type: disorientation Qualified Code(s): R41.0 - Disorientation, unspecified (2) Acute respiratory failure Respiratory failure complication: unspecified whether with hypoxia or hypercapnia Qualified Code(s): J96.00 - Acute respiratory failure, unspecified whether with hypoxia or hypercapnia
[2020-11-23] MEDS ORDERED: NALOXONE HCL 0.4 MG/1 ML VIAL/CARP IV PRN (21:22)
[2020-11-23] MEDS: PIPERACILLIN/TAZOBACTAM 4.5 GM in DEXTROSE 5% 100 ML IV SCH (21:24)
[2020-11-23 21:45] LABS: iSTAT Allen Test Pass; iSTAT Arterial Blood Gas HCO3 27 meg/L (19-24); iSTAT Arterial Blood Gas pCO2 58 mmHg (35-46); iSTAT Arterial Blood Gas pH 7.27 (7.35-7.45); iSTAT Arterial Blood Gas pO2 108 mmHg (80-95); iSTAT Carbon Dioxide 28 mmol/L (24-31); iSTAT FiO2 30 %; iSTAT Site R Radial
[2020-11-23 22:11] LABS: BUN Creatinine Ratio 23.2 (10-20); Calcium 9.4 mg/dl (8.5-10.1); Creatinine Clr Calc Pharmacy 37.5 ml/min; Est GFR (African American) 28.9 ml/min; Est GFR (Non-African American) 24.9 ml/min; Magnesium 2.7 mg/dl (1.8-2.4); Phosphorus 4.7 mg/dl (2.5-4.9); Potassium 4.9 mmol/L (3.5-5.1)
[2020-11-24 05:13] LABS: iSTAT Allen Test Pass; iSTAT Art Bld Gas pCO2 Correct 56 mmHg (35-46); iSTAT Art Bld Gas pH Corrected 7.285 (7.35-7.45); iSTAT Arterial Blood Gas HCO3 27 meg/L (19-24); iSTAT Arterial Blood Gas pCO2 57 mmHg (35-46); iSTAT Arterial Blood Gas pH 7.28 (7.35-7.45); iSTAT Arterial Blood Gas pO2 77 mmHg (80-95); iSTAT Arterial Blood Gas pO2 C 75; iSTAT Carbon Dioxide 29 mmol/L (24-31); iSTAT FiO2 30 %; iSTAT Hematocrit 34 % (42-52); iSTAT Hemoglobin 11.6 g/dl (14.0-18.0); iSTAT Potassium 4.1 mmol/L (3.3-5.0); iSTAT Site R Radial; iSTAT Sodium 136 mmol/L (135-144)
[2020-11-24 05:31] LABS: Eosinophils # (auto) 0.07 K/uL (0-0.5); Hematocrit (blood only) 34.4 % (42-52); Immature Granulocytes # (auto) 0.01 K/uL (0.00-0.02); Immature Granulocytes % (auto) 0.1 %; Lymphocytes # (auto) 1.14 K/uL (1.2-3.4); Lymphocytes % (auto) 16.6 %; Mean Corpuscular Hemoglobin 29.2 pg (25-34); Mean Corpuscular Volume 91.2 fL (80-100); Mean Platelet Volume 11.6 fL (7.4-10.4); Monocytes # (auto) 1.09 K/uL (0.11-0.59); Monocytes % (auto) 15.9 %; Neutrophils # (auto) 4.55 K/uL (1.4-6.5); Neutrophils % (auto) 66.4 %; Platelet Count 129 K/uL (130-400); RDW Coefficient of Variation 15.8 % (11.5-14.5); RDW Standard Deviation 52.7 fL (36.4-46.3); Red Blood Count 3.77 M/uL (4.7-6.1); White Blood Count 6.86 K/uL (4.8-10.8)
[2020-11-24 05:58] LABS: Bilirubin Direct 0.2 mg/dl (0-0.2); Calcium 9.1 mg/dl (8.5-10.1); Creatinine Clr Calc Pharmacy 48.7 ml/min; Est GFR (African American) 39.7 ml/min; Est GFR (Non-African American) 34.3 ml/min; Magnesium 2.6 mg/dl (1.8-2.4)
[2020-11-24 06:00] LABS: Bilirubin,Total 0.4 mg/dl (0.2-1); Phosphorus 3.9 mg/dl (2.5-4.9); Total Protein 7.4 gm/dl (6.4-8.2)
[2020-11-24] MEDS: PIPERACILLIN/TAZOBACTAM 4.5 GM in DEXTROSE 5% 100 ML IV SCH (06:18)
--- NOTE | 2020-11-24 06:58 | Hospitalist Progress Note ---
Date of Service November 24, 2020 Assessment & Plan (1) Acute respiratory failure: Pt is 65 y/o M with PMH DM II, DM HTN, HLD, ENRIQUE previously noncompliant with CPAP, now on BiPAP at bedtime, Left BKA, phantom limb pain on chronic narcotic, Anxiety, depression, Charcot joint, obesity presented to ER for altered mental status since yesterday morning. Did not have Bipap on last night. H/O hospitalization for acute hypercapnic respiratory failure in setting of excessive opiate use. Was treated with BiPAP and Narcan, discharged on Triology His oxycodone ER was reduced from 30 mg twice daily to 20 mg twice daily. Oxycodone was reduced from 15 mg every 6 hours as needed pain to 10 mg every 6 hours as needed pain Today in ER it is reported patient was noted to be hypoxic at 89% on room air, afebrile, tachycardic at 106 and somnolent. ABG: pH: 7.26, PO2: 118, PCO2: 53, HCO3: 23. Lactate: 1.0, Procalcitonin: 0.17 CXR question pneumonitis versus atelectasis right lower lobe, pulmonary vascular congestion In ER was ordered 1 L NSS, 1 hour albuterol neb, Lasix 40 mg IV, Zosyn, Levaquin. Patient was initially placed on BiPAP with O2 sat from 89 to 96% and reported to become a little more alert. Later in ER course 0.2 Narcan was given and reported patient became more awake. Patient went to CT and back to ER was not placed back on BiPAP initially. BiPAP replaced with repeat ABG in 30 minutes improved with pH: 7.3, pCO2: 45, pO2: 128, HCO3: 21 Pt was given additional dose Narcan without much improvement Pt was admitted to ICU for further observation and treatment Continue Bipap Clinically much improved, now he is awake and able to answer questions appropriately (2) Pneumonia: recent pneumonia in 09/2020 during hospitalization at [facility] CT ABD/PELVIS: Bibasilar patchy consolidative opacities are suggestive of multifocal pneumonia. In ER given Zosyn, Levaquin Continue zosyn Possible aspiration (3) Metabolic encephalopathy: Probable secondary to opioid overuse, AARON, hypercapnia Pt probably not clearing opioids secondary to poor renal function Monitor Treatment as above Mental status now much improved, patient is able to answer questions appropriately (4) AARON (acute kidney injury): BUN: 62, Cr: 3, GFR: 20. Baseline Cr: 0.6. (09/2020 hospitalization also had AARON with Cr up to 2) CT ABD/PELVIS: No urolith or obstructive uropathy. Possible secondary to urinary retention Avoid nephrotoxic agents when possible Nephrology consult (5) Urinary retention: Bladder scan 500 mL. Patient unable to urinate. Catheter placed in ER and 1300ml drained (6) Fluid overload: CXR: pulmonary vascular congestion In ER given lasix 40mg IV (7) ENRIQUE (obstructive sleep apnea): Prior history non-compliance with CPAP. Recently started using Triology HS. (8) Chronic narcotic use: (9) DMII (diabetes mellitus, type 2): glycemic management per ICU (10) HTN (hypertension): management per ICU (11) Obesity: (12) Anxiety: Admit ICU Full Code as per discussion with pt and pt's Follows with Dr Bates for routine care Admission and Anticipated Discharge Date Admission Date: November 23, 2020 Subjective Patient seen in follow-up of altered mental status, hypercapnia, hypoxia, AARON Patient currently laying in bed, in ICU, at the bedside He is now awake and able to answer questions appropriately Creatinine improved after Moy catheter placed Denies any chest pain, fevers, chills, abdominal pain, nausea or vomiting, he is not short of breath Some difficulty with using BiPAP/trilogy Review of Systems Review of Systems: All systems reviewed & are unremarkable except as noted in HPI & below Constitutional: no fever and no chills Respiratory: no cough and no dyspnea Cardiovascular: no chest pain and no palpitations Gastrointestinal: no abdominal pain, no nausea and no vomiting Physical Exam Physical Exam: General: +obese male in NAD Head: normocephalic, atraumatic Eyes: EOMI, PERRL, conjunctiva non-injected, anicteric ENT: normal inspection external ears, nose, mucous membranes moist Neck: supple, trachea midline Lungs: no respiratory distress, mild bibasilar crackles, no wheezing CV: RRR, 2+ pretibial edema RLE Abd: + obese, protuberant, normal BS, soft, no apparent tenderness to palpation Ext: LLE: BKA ambulation; no erythema, +venous stasis skin changes Neuro: Alert and oriented x3, no facial asymmetry, speech fluent, moves extremities Skin: warm, dry Results & Data Results & Data ([facility]) Vital Signs (Past 12 Hours) Vital Signs Temp Pulse Pulse Resp BP BP Pulse Ox 11/24/20 05:42 96 H 17 114/64 100 11/24/20 05:12 93 H 16 129/80 100 11/24/20 04:50 90 18 100 11/24/20 04:42 93 H 16 108/72 98 11/24/20 04:12 95 H 15 98/62 L 97 11/24/20 03:42 100 H 14 115/71 100 11/24/20 03:12 96 H 15 112/79 100 11/24/20 02:42 95 H 16 115/67 100 11/24/20 02:12 101 H 17 129/75 98 11/24/20 01:59 102 H 21 100 11/24/20 01:12 94 H 21 108/68 98 11/24/20 00:12 96 H 18 114/67 100 11/23/20 23:12 94 H 16 99/62 L 100 11/23/20 22:12 100 H 17 119/77 100 11/23/20 21:42 36.6 C 100 H 16 121/79 96 11/23/20 21:38 99 H 19 96 11/23/20 21:16 11/23/20 21:12 95 H 32 H 97/58 L 94 11/23/20 20:42 97 H 20 81/48 L 95 11/23/20 20:24 101 H 24 121/58 L 94 11/23/20 19:20 105 H 23 97 11/23/20 19:04 106 H 18 124/62 98 11/23/20 19:00 108 H 21 124/62 98 Pulse Ox 11/24/20 05:42 11/24/20 05:12 11/24/20 04:50 11/24/20 04:42 11/24/20 04:12 11/24/20 03:42 11/24/20 03:12 11/24/20 02:42 11/24/20 02:12 11/24/20 01:59 11/24/20 01:12 11/24/20 00:12 11/23/20 23:12 11/23/20 22:12 11/23/20 21:42 11/23/20 21:38 11/23/20 21:16 100 11/23/20 21:12 11/23/20 20:42 11/23/20 20:24 11/23/20 19:20 11/23/20 19:04 11/23/20 19:00 Laboratory Results 11/24/20 11/24/20 11/24/20 Range/Units 05:00 04:59 04:59 WBC 6.86 (4.8-10.8) K/uL RBC 3.77 L (4.7-6.1) M/uL Hgb 11.0 L (14.0-18.0) g/dL POC Hgb 11.6 L (14.0-18.0) g/dl Hct 34.4 L (42-52) % POC Hct 34 L (42-52) % MCV 91.2 (80-100) fL MCH 29.2 (25-34) pg MCHC 32.0 (32-36) g/dL RDW Std Deviation 52.7 H (36.4-46.3) fL RDW Coeff of Madelyn 15.8 H (11.5-14.5) % Plt Count 129 L (130-400) K/uL MPV 11.6 H (7.4-10.4) fL Immature Gran % (Auto) 0.1 % Neut % (Auto) 66.4 % Lymph % (Auto) 16.6 % [place] % (Auto) 15.9 % Eos % (Auto) 1.0 % Baso % (Auto) 0.0 % Neut # (Auto) 4.55 (1.4-6.5) K/uL Lymph # (Auto) 1.14 L (1.2-3.4) K/uL [place] # (Auto) 1.09 H (0.11-0.59) K/uL Eos # (Auto) 0.07 (0-0.5) K/uL Baso # (Auto) 0.00 (0-0.2) K/uL Immature Gran # (Auto) 0.01 (0.00-0.02) K/uL APTT (21.0-31.0) Seconds PTT Ratio Sample Site R Radial POC pH 7.28 L (7.35-7.45) POC pCO2 57 H (35-46) mmHg POC pO2 77 L (80-95) mmHg POC HCO3 27 H (19-24) rad/L POC Total CO2 29 (24-31) mmol/L POC Base Excess 0.0 (-9-1.8) rad/L ABG pH (7.35-7.45) ABG pH (Temp Correct) 7.285 L (7.35-7.45) ABG pCO2 (35-46) mmHg ABG pCO2 (Temp Corrct 56 H (35-46) mmHg ABG pO2 (80-95) mmHg POC ABG pO2 at Pt Temp 75 ABG HCO3 (19-24) mmol/L POC ABG O2 Sat 93.0 (90-95) % ABG O2 Saturation (90-95) % ABG Base Excess (-9-1.8) mEq/L Frank Test Pass (Pos) Barometric Pressure mm/Hg Oxygen Given O2 Delivery Device BIPAP POC O2 Rate 16 POC FiO2 30 % IPAP 20 POC Sodium 136 (135-144) mmol/L Sodium 134 L (136-145) mmol/L POC Potassium 4.1 (3.3-5.0) mmol/L Potassium 4.0 D (3.5-5.1) mmol/L Chloride 102 (98-107) mmol/L Carbon Dioxide 29 (21-32) mmol/L Anion Gap 3.0 (3-11) BUN 62 H (7-18) mg/dl Creatinine 2.00 H D (0.6-1.4) mg/dl Est Cr Clr Drug Dosing 48.7 ml/min Est GFR ( Amer) 39.7 ml/min Est GFR (Non-Af Amer) 34.3 ml/min BUN/Creatinine Ratio 31.0 H (10-20) Glucose 101 H (70-99) mg/dl POC Glucose (70-99) mg/dl Lactate (0.4-2.0) mmol/L Calcium 9.1 (8.5-10.1) mg/dl Phosphorus 3.9 (2.5-4.9) mg/dl Magnesium 2.6 H (1.8-2.4) mg/dl Total Bilirubin 0.4 (0.2-1) mg/dl Direct Bilirubin 0.2 (0-0.2) mg/dl AST 48 H (15-37) U/L ALT 31 (12-78) U/L Alkaline Phosphatase 117 (45-117) U/L Ammonia (11-32) umol/L Troponin I (0-0.045) ng/ml NT-Pro-B Natriuret Pep 868 (0-900) pg/ml Total Protein 7.4 (6.4-8.2) gm/dl Albumin 3.0 L (3.4-5.0) gm/dl Globulin (2.5-4.0) gm/dl Albumin/Globulin Ratio (0.9-2) Lipase (73-393) U/L Procalcitonin (0-0.5) ng/ml Urine Color Urine Appearance (Clear) Urine pH (4.5-7.5) Ur Specific [place] (1.000-1.030) Urine Protein (Negative) Urine Glucose (UA) (Negative) Urine Ketones (Negative) Urine Blood (Negative) Urine Nitrite (Negative) Urine Bilirubin (Negative) Urine Urobilinogen (Negative) Ur Leukocyte Esterase (Negative) Nasal Screen MRSA (PCR) (Negative) Urine Opiates Screen (Neg) U Codeine Confrm GC/MS Ur Morphine (GC/MS) Ur Hydrocodone (GC/MS) Ur Norhydrocodone Ur Noroxycodone Urine Oxycodone (GC/MS) U Oxymorphone GC/MS Ur Methadone, Qual (Neg) Ur Hydromorphone (GC/MS) Urine Barbiturates (Neg) Ur Phencyclidine (PCP) (Neg) U Amphetamin/Meth Scrn (Neg) MDMA (Ecstasy) Screen (Neg) U Benzodiazepines Scrn (Neg) Ur Cocaine Metabolite (Neg) U Marijuana (THC) Screen (Neg) Drug Screen Comment COVID-19 Eval Order SARS-CoV-2 (PCR) (Negative) 11/23/20 11/23/20 11/23/20 Range/Units 21:35 21:31 21:30 WBC (4.8-10.8) K/uL RBC (4.7-6.1) M/uL Hgb (14.0-18.0) g/dL POC Hgb (14.0-18.0) g/dl Hct (42-52) % POC Hct (42-52) % MCV (80-100) fL MCH (25-34) pg MCHC (32-36) g/dL RDW Std Deviation (36.4-46.3) fL RDW Coeff of Madelyn (11.5-14.5) % Plt Count (130-400) K/uL MPV (7.4-10.4) fL Immature Gran % (Auto) % Neut % (Auto) % Lymph % (Auto) % [place] % (Auto) % Eos % (Auto) % Baso % (Auto) % Neut # (Auto) (1.4-6.5) K/uL Lymph # (Auto) (1.2-3.4) K/uL [place] # (Auto) (0.11-0.59) K/uL Eos # (Auto) (0-0.5) K/uL Baso # (Auto) (0-0.2) K/uL Immature Gran # (Auto) (0.00-0.02) K/uL APTT (21.0-31.0) Seconds PTT Ratio Sample Site R Radial POC pH 7.27 L (7.35-7.45) POC pCO2 58 H (35-46) mmHg POC pO2 108 H (80-95) mmHg POC HCO3 27 H (19-24) rad/L POC Total CO2 28 (24-31) mmol/L POC Base Excess 0.0 (-9-1.8) rad/L ABG pH (7.35-7.45) ABG pH (Temp Correct) (7.35-7.45) ABG pCO2 (35-46) mmHg ABG pCO2 (Temp Corrct (35-46) mmHg ABG pO2 (80-95) mmHg POC ABG pO2 at Pt Temp ABG HCO3 (19-24) mmol/L POC ABG O2 Sat 97.0 H (90-95) % ABG O2 Saturation (90-95) % ABG Base Excess (-9-1.8) mEq/L Frank Test Pass (Pos) Barometric Pressure mm/Hg Oxygen Given O2 Delivery Device BIPAP POC O2 Rate 12 POC FiO2 30 % IPAP 18 POC Sodium (135-144) mmol/L Sodium 132 L (136-145) mmol/L POC Potassium (3.3-5.0) mmol/L Potassium 4.9 (3.5-5.1) mmol/L Chloride 100 (98-107) mmol/L Carbon Dioxide 25 (21-32) mmol/L Anion Gap 7.0 (3-11) BUN 60 H (7-18) mg/dl Creatinine 2.60 H D (0.6-1.4) mg/dl Est Cr Clr Drug Dosing 37.5 ml/min Est GFR ( Amer) 28.9 ml/min Est GFR (Non-Af Amer) 24.9 ml/min BUN/Creatinine Ratio 23.2 H (10-20) Glucose 121 H (70-99) mg/dl POC Glucose 141 H (70-99) mg/dl Lactate (0.4-2.0) mmol/L Calcium 9.4 (8.5-10.1) mg/dl Phosphorus 4.7 (2.5-4.9) mg/dl Magnesium 2.7 H (1.8-2.4) mg/dl Total Bilirubin (0.2-1) mg/dl Direct Bilirubin (0-0.2) mg/dl AST (15-37) U/L ALT (12-78) U/L Alkaline Phosphatase (45-117) U/L Ammonia (11-32) umol/L Troponin I (0-0.045) ng/ml NT-Pro-B Natriuret Pep (0-900) pg/ml Total Protein (6.4-8.2) gm/dl Albumin (3.4-5.0) gm/dl Globulin (2.5-4.0) gm/dl Albumin/Globulin Ratio (0.9-2) Lipase (73-393) U/L Procalcitonin (0-0.5) ng/ml Urine Color Urine Appearance (Clear) Urine pH (4.5-7.5) Ur Specific [place] (1.000-1.030) Urine Protein (Negative) Urine Glucose (UA) (Negative) Urine Ketones (Negative) Urine Blood (Negative) Urine Nitrite (Negative) Urine Bilirubin (Negative) Urine Urobilinogen (Negative) Ur Leukocyte Esterase (Negative) Nasal Screen MRSA (PCR) (Negative) Urine Opiates Screen (Neg) U Codeine Confrm GC/MS Ur Morphine (GC/MS) Ur Hydrocodone (GC/MS) Ur Norhydrocodone Ur Noroxycodone Urine Oxycodone (GC/MS) U Oxymorphone GC/MS Ur Methadone, Qual (Neg) Ur Hydromorphone (GC/MS) Urine Barbiturates (Neg) Ur Phencyclidine (PCP) (Neg) U Amphetamin/Meth Scrn (Neg) MDMA (Ecstasy) Screen (Neg) U Benzodiazepines Scrn (Neg) Ur Cocaine Metabolite (Neg) U Marijuana (THC) Screen (Neg) Drug Screen Comment COVID-19 Eval Order SARS-CoV-2 (PCR) (Negative) 11/23/20 11/23/20 11/23/20 Range/Units 20:00 18:37 18:37 WBC (4.8-10.8) K/uL RBC (4.7-6.1) M/uL Hgb (14.0-18.0) g/dL POC Hgb (14.0-18.0) g/dl Hct (42-52) % POC Hct (42-52) % MCV (80-100) fL MCH (25-34) pg MCHC (32-36) g/dL RDW Std Deviation (36.4-46.3) fL RDW Coeff of Madelyn (11.5-14.5) % Plt Count (130-400) K/uL MPV (7.4-10.4) fL Immature Gran % (Auto) % Neut % (Auto) % Lymph % (Auto) % [place] % (Auto) % Eos % (Auto) % Baso % (Auto) % Neut # (Auto) (1.4-6.5) K/uL Lymph # (Auto) (1.2-3.4) K/uL [place] # (Auto) (0.11-0.59) K/uL Eos # (Auto) (0-0.5) K/uL Baso # (Auto) (0-0.2) K/uL Immature Gran # (Auto) (0.00-0.02) K/uL APTT (21.0-31.0) Seconds PTT Ratio Sample Site POC pH (7.35-7.45) POC pCO2 (35-46) mmHg POC pO2 (80-95) mmHg POC HCO3 (19-24) rad/L POC Total CO2 (24-31) mmol/L POC Base Excess (-9-1.8) rad/L ABG pH (7.35-7.45) ABG pH (Temp Correct) (7.35-7.45) ABG pCO2 (35-46) mmHg ABG pCO2 (Temp Corrct (35-46) mmHg ABG pO2 (80-95) mmHg POC ABG pO2 at Pt Temp ABG HCO3 (19-24) mmol/L POC ABG O2 Sat (90-95) % ABG O2 Saturation (90-95) % ABG Base Excess (-9-1.8) mEq/L Frank Test (Pos) Barometric Pressure mm/Hg Oxygen Given O2 Delivery Device POC O2 Rate POC FiO2 % IPAP POC Sodium (135-144) mmol/L Sodium (136-145) mmol/L POC Potassium (3.3-5.0) mmol/L Potassium (3.5-5.1) mmol/L Chloride (98-107) mmol/L Carbon Dioxide (21-32) mmol/L Anion Gap (3-11) BUN (7-18) mg/dl Creatinine (0.6-1.4) mg/dl Est Cr Clr Drug Dosing ml/min Est GFR ( Amer) ml/min Est GFR (Non-Af Amer) ml/min BUN/Creatinine Ratio (10-20) Glucose (70-99) mg/dl POC Glucose (70-99) mg/dl Lactate (0.4-2.0) mmol/L Calcium (8.5-10.1) mg/dl Phosphorus (2.5-4.9) mg/dl Magnesium (1.8-2.4) mg/dl Total Bilirubin (0.2-1) mg/dl Direct Bilirubin (0-0.2) mg/dl AST (15-37) U/L ALT (12-78) U/L Alkaline Phosphatase (45-117) U/L Ammonia (11-32) umol/L Troponin I (0-0.045) ng/ml NT-Pro-B Natriuret Pep (0-900) pg/ml Total Protein (6.4-8.2) gm/dl Albumin (3.4-5.0) gm/dl Globulin (2.5-4.0) gm/dl Albumin/Globulin Ratio (0.9-2) Lipase (73-393) U/L Procalcitonin (0-0.5) ng/ml Urine Color Urine Appearance (Clear) Urine pH (4.5-7.5) Ur Specific [place] (1.000-1.030) Urine Protein (Negative) Urine Glucose (UA) (Negative) Urine Ketones (Negative) Urine Blood (Negative) Urine Nitrite (Negative) Urine Bilirubin (Negative) Urine Urobilinogen (Negative) Ur Leukocyte Esterase (Negative) Nasal Screen MRSA (PCR) Negative (Negative) Urine Opiates Screen Pos H (Neg) U Codeine Confrm GC/MS Pending Ur Morphine (GC/MS) Pending Ur Hydrocodone (GC/MS) Pending Ur Norhydrocodone Pending Ur Noroxycodone Pending Urine Oxycodone (GC/MS) Pending U Oxymorphone GC/MS Pending Ur Methadone, Qual Neg (Neg) Ur Hydromorphone (GC/MS) Pending Urine Barbiturates Neg (Neg) Ur Phencyclidine (PCP) Neg (Neg) U Amphetamin/Meth Scrn Neg (Neg) MDMA (Ecstasy) Screen Neg (Neg) U Benzodiazepines Scrn Neg (Neg) Ur Cocaine Metabolite Neg (Neg) U Marijuana (THC) Screen Neg (Neg) Drug Screen Comment Pending COVID-19 Eval Order SARS-CoV-2 (PCR) (Negative) 11/23/20 11/23/20 11/23/20 Range/Units 18:37 18:05 17:38 WBC (4.8-10.8) K/uL RBC (4.7-6.1) M/uL Hgb (14.0-18.0) g/dL POC Hgb (14.0-18.0) g/dl Hct (42-52) % POC Hct (42-52) % MCV (80-100) fL MCH (25-34) pg MCHC (32-36) g/dL RDW Std Deviation (36.4-46.3) fL RDW Coeff of Madelyn (11.5-14.5) % Plt Count (130-400) K/uL MPV (7.4-10.4) fL Immature Gran % (Auto) % Neut % (Auto) % Lymph % (Auto) % [place] % (Auto) % Eos % (Auto) % Baso % (Auto) % Neut # (Auto) (1.4-6.5) K/uL Lymph # (Auto) (1.2-3.4) K/uL [place] # (Auto) (0.11-0.59) K/uL Eos # (Auto) (0-0.5) K/uL Baso # (Auto) (0-0.2) K/uL Immature Gran # (Auto) (0.00-0.02) K/uL APTT (21.0-31.0) Seconds PTT Ratio Sample Site POC pH (7.35-7.45) POC pCO2 (35-46) mmHg POC pO2 (80-95) mmHg POC HCO3 (19-24) rad/L POC Total CO2 (24-31) mmol/L POC Base Excess (-9-1.8) rad/L ABG pH 7.30 L (7.35-7.45) ABG pH (Temp Correct) (7.35-7.45) ABG pCO2 45 (35-46) mmHg ABG pCO2 (Temp Corrct (35-46) mmHg ABG pO2 128 H (80-95) mmHg POC ABG pO2 at Pt Temp ABG HCO3 21 (19-24) mmol/L POC ABG O2 Sat (90-95) % ABG O2 Saturation 98.5 H (90-95) % ABG Base Excess -5.2 (-9-1.8) mEq/L Frank Test Pos (Pos) Barometric Pressure 730.8 mm/Hg Oxygen Given 40% O2 Delivery Device POC O2 Rate POC FiO2 % IPAP POC Sodium (135-144) mmol/L Sodium (136-145) mmol/L POC Potassium (3.3-5.0) mmol/L Potassium (3.5-5.1) mmol/L Chloride (98-107) mmol/L Carbon Dioxide (21-32) mmol/L Anion Gap (3-11) BUN (7-18) mg/dl Creatinine (0.6-1.4) mg/dl Est Cr Clr Drug Dosing ml/min Est GFR ( Amer) ml/min Est GFR (Non-Af Amer) ml/min BUN/Creatinine Ratio (10-20) Glucose (70-99) mg/dl POC Glucose (70-99) mg/dl Lactate (0.4-2.0) mmol/L Calcium (8.5-10.1) mg/dl Phosphorus (2.5-4.9) mg/dl Magnesium (1.8-2.4) mg/dl Total Bilirubin (0.2-1) mg/dl Direct Bilirubin (0-0.2) mg/dl AST (15-37) U/L ALT (12-78) U/L Alkaline Phosphatase (45-117) U/L Ammonia 27.7 (11-32) umol/L Troponin I (0-0.045) ng/ml NT-Pro-B Natriuret Pep (0-900) pg/ml Total Protein (6.4-8.2) gm/dl Albumin (3.4-5.0) gm/dl Globulin (2.5-4.0) gm/dl Albumin/Globulin Ratio (0.9-2) Lipase (73-393) U/L Procalcitonin (0-0.5) ng/ml Urine Color Dark Yellow Urine Appearance Clear (Clear) Urine pH 5.0 (4.5-7.5) Ur Specific [place] 1.016 (1.000-1.030) Urine Protein Negative (Negative) Urine Glucose (UA) Negative (Negative) Urine Ketones Negative (Negative) Urine Blood Negative (Negative) Urine Nitrite Negative (Negative) Urine Bilirubin Negative (Negative) Urine Urobilinogen Negative (Negative) Ur Leukocyte Esterase Negative (Negative) Nasal Screen MRSA (PCR) (Negative) Urine Opiates Screen (Neg) U Codeine Confrm GC/MS Ur Morphine (GC/MS) Ur Hydrocodone (GC/MS) Ur Norhydrocodone Ur Noroxycodone Urine Oxycodone (GC/MS) U Oxymorphone GC/MS Ur Methadone, Qual (Neg) Ur Hydromorphone (GC/MS) Urine Barbiturates (Neg) Ur Phencyclidine (PCP) (Neg) U Amphetamin/Meth Scrn (Neg) MDMA (Ecstasy) Screen (Neg) U Benzodiazepines Scrn (Neg) Ur Cocaine Metabolite (Neg) U Marijuana (THC) Screen (Neg) Drug Screen Comment COVID-19 Eval Order SARS-CoV-2 (PCR) (Negative) 11/23/20 11/23/20 11/23/20 Range/Units 17:38 15:40 15:40 WBC (4.8-10.8) K/uL RBC (4.7-6.1) M/uL Hgb (14.0-18.0) g/dL POC Hgb (14.0-18.0) g/dl Hct (42-52) % POC Hct (42-52) % MCV (80-100) fL MCH (25-34) pg MCHC (32-36) g/dL RDW Std Deviation (36.4-46.3) fL RDW Coeff of Madelyn (11.5-14.5) % Plt Count (130-400) K/uL MPV (7.4-10.4) fL Immature Gran % (Auto) % Neut % (Auto) % Lymph % (Auto) % [place] % (Auto) % Eos % (Auto) % Baso % (Auto) % Neut # (Auto) (1.4-6.5) K/uL Lymph # (Auto) (1.2-3.4) K/uL [place] # (Auto) (0.11-0.59) K/uL Eos # (Auto) (0-0.5) K/uL Baso # (Auto) (0-0.2) K/uL Immature Gran # (Auto) (0.00-0.02) K/uL APTT (21.0-31.0) Seconds PTT Ratio Sample Site POC pH (7.35-7.45) POC pCO2 (35-46) mmHg POC pO2 (80-95) mmHg POC HCO3 (19-24) rad/L POC Total CO2 (24-31) mmol/L POC Base Excess (-9-1.8) rad/L ABG pH (7.35-7.45) ABG pH (Temp Correct) (7.35-7.45) ABG pCO2 (35-46) mmHg ABG pCO2 (Temp Corrct (35-46) mmHg ABG pO2 (80-95) mmHg POC ABG pO2 at Pt Temp ABG HCO3 (19-24) mmol/L POC ABG O2 Sat (90-95) % ABG O2 Saturation (90-95) % ABG Base Excess (-9-1.8) mEq/L Frank Test (Pos) Barometric Pressure mm/Hg Oxygen Given O2 Delivery Device POC O2 Rate POC FiO2 % IPAP POC Sodium (135-144) mmol/L Sodium (136-145) mmol/L POC Potassium (3.3-5.0) mmol/L Potassium (3.5-5.1) mmol/L Chloride (98-107) mmol/L Carbon Dioxide (21-32) mmol/L Anion Gap (3-11) BUN (7-18) mg/dl Creatinine (0.6-1.4) mg/dl Est Cr Clr Drug Dosing ml/min Est GFR ( Amer) ml/min Est GFR (Non-Af Amer) ml/min BUN/Creatinine Ratio (10-20) Glucose (70-99) mg/dl POC Glucose (70-99) mg/dl Lactate 1.0 (0.4-2.0) mmol/L Calcium (8.5-10.1) mg/dl Phosphorus (2.5-4.9) mg/dl Magnesium (1.8-2.4) mg/dl Total Bilirubin (0.2-1) mg/dl Direct Bilirubin (0-0.2) mg/dl AST (15-37) U/L ALT (12-78) U/L Alkaline Phosphatase (45-117) U/L Ammonia (11-32) umol/L Troponin I (0-0.045) ng/ml NT-Pro-B Natriuret Pep (0-900) pg/ml Total Protein (6.4-8.2) gm/dl Albumin (3.4-5.0) gm/dl Globulin (2.5-4.0) gm/dl Albumin/Globulin Ratio (0.9-2) Lipase (73-393) U/L Procalcitonin (0-0.5) ng/ml Urine Color Urine Appearance (Clear) Urine pH (4.5-7.5) Ur Specific [place] (1.000-1.030) Urine Protein (Negative) Urine Glucose (UA) (Negative) Urine Ketones (Negative) Urine Blood (Negative) Urine Nitrite (Negative) Urine Bilirubin (Negative) Urine Urobilinogen (Negative) Ur Leukocyte Esterase (Negative) Nasal Screen MRSA (PCR) (Negative) Urine Opiates Screen (Neg) U Codeine Confrm GC/MS Ur Morphine (GC/MS) Ur Hydrocodone (GC/MS) Ur Norhydrocodone Ur Noroxycodone Urine Oxycodone (GC/MS) U Oxymorphone GC/MS Ur Methadone, Qual (Neg) Ur Hydromorphone (GC/MS) Urine Barbiturates (Neg) Ur Phencyclidine (PCP) (Neg) U Amphetamin/Meth Scrn (Neg) MDMA (Ecstasy) Screen (Neg) U Benzodiazepines Scrn (Neg) Ur Cocaine Metabolite (Neg) U Marijuana (THC) Screen (Neg) Drug Screen Comment COVID-19 Eval Order Covid19 at [facility] SARS-CoV-2 (PCR) NEGATIVE (Negative) 11/23/20 11/23/20 11/23/20 Range/Units 14:40 14:33 14:32 WBC (4.8-10.8) K/uL RBC (4.7-6.1) M/uL Hgb (14.0-18.0) g/dL POC Hgb (14.0-18.0) g/dl Hct (42-52) % POC Hct (42-52) % MCV (80-100) fL MCH (25-34) pg MCHC (32-36) g/dL RDW Std Deviation (36.4-46.3) fL RDW Coeff of Madelyn (11.5-14.5) % Plt Count (130-400) K/uL MPV (7.4-10.4) fL Immature Gran % (Auto) % Neut % (Auto) % Lymph % (Auto) % [place] % (Auto) % Eos % (Auto) % Baso % (Auto) % Neut # (Auto) (1.4-6.5) K/uL Lymph # (Auto) (1.2-3.4) K/uL [place] # (Auto) (0.11-0.59) K/uL Eos # (Auto) (0-0.5) K/uL Baso # (Auto) (0-0.2) K/uL Immature Gran # (Auto) (0.00-0.02) K/uL APTT (21.0-31.0) Seconds PTT Ratio Sample Site POC pH (7.35-7.45) POC pCO2 (35-46) mmHg POC pO2 (80-95) mmHg POC HCO3 (19-24) rad/L POC Total CO2 (24-31) mmol/L POC Base Excess (-9-1.8) rad/L ABG pH 7.26 L (7.35-7.45) ABG pH (Temp Correct) (7.35-7.45) ABG pCO2 53 H (35-46) mmHg ABG pCO2 (Temp Corrct (35-46) mmHg ABG pO2 118 H (80-95) mmHg POC ABG pO2 at Pt Temp ABG HCO3 23 (19-24) mmol/L POC ABG O2 Sat (90-95) % ABG O2 Saturation 97.9 H (90-95) % ABG Base Excess -4.5 (-9-1.8) mEq/L Frank Test Pos (Pos) Barometric Pressure 732.1 mm/Hg Oxygen Given 30% O2 Delivery Device POC O2 Rate POC FiO2 % IPAP POC Sodium (135-144) mmol/L Sodium 132 L (136-145) mmol/L POC Potassium (3.3-5.0) mmol/L Potassium 4.8 (3.5-5.1) mmol/L Chloride 97 L (98-107) mmol/L Carbon Dioxide 25 (21-32) mmol/L Anion Gap 9.0 (3-11) BUN 62 H (7-18) mg/dl Creatinine 3.01 H (0.6-1.4) mg/dl Est Cr Clr Drug Dosing 31.2 ml/min Est GFR ( Amer) 24.2 ml/min Est GFR (Non-Af Amer) 20.9 ml/min BUN/Creatinine Ratio 20.6 H (10-20) Glucose 113 H (70-99) mg/dl POC Glucose (70-99) mg/dl Lactate (0.4-2.0) mmol/L Calcium 9.7 (8.5-10.1) mg/dl Phosphorus (2.5-4.9) mg/dl Magnesium (1.8-2.4) mg/dl Total Bilirubin 0.4 (0.2-1) mg/dl Direct Bilirubin (0-0.2) mg/dl AST 69 H (15-37) U/L ALT 35 (12-78) U/L Alkaline Phosphatase 120 H (45-117) U/L Ammonia (11-32) umol/L Troponin I 0.016 (0-0.045) ng/ml NT-Pro-B Natriuret Pep 2148 H (0-900) pg/ml Total Protein 8.1 (6.4-8.2) gm/dl Albumin 3.2 L (3.4-5.0) gm/dl Globulin 4.9 H (2.5-4.0) gm/dl Albumin/Globulin Ratio 0.7 L (0.9-2) Lipase 87 (73-393) U/L Procalcitonin 0.17 (0-0.5) ng/ml Urine Color Urine Appearance (Clear) Urine pH (4.5-7.5) Ur Specific [place] (1.000-1.030) Urine Protein (Negative) Urine Glucose (UA) (Negative) Urine Ketones (Negative) Urine Blood (Negative) Urine Nitrite (Negative) Urine Bilirubin (Negative) Urine Urobilinogen (Negative) Ur Leukocyte Esterase (Negative) Nasal Screen MRSA (PCR) (Negative) Urine Opiates Screen (Neg) U Codeine Confrm GC/MS Ur Morphine (GC/MS) Ur Hydrocodone (GC/MS) Ur Norhydrocodone Ur Noroxycodone Urine Oxycodone (GC/MS) U Oxymorphone GC/MS Ur Methadone, Qual (Neg) Ur Hydromorphone (GC/MS) Urine Barbiturates (Neg) Ur Phencyclidine (PCP) (Neg) U Amphetamin/Meth Scrn (Neg) MDMA (Ecstasy) Screen (Neg) U Benzodiazepines Scrn (Neg) Ur Cocaine Metabolite (Neg) U Marijuana (THC) Screen (Neg) Drug Screen Comment COVID-19 Eval Order SARS-CoV-2 (PCR) (Negative) 11/23/20 11/23/20 Range/Units 14:32 14:32 WBC 9.31 (4.8-10.8) K/uL RBC 4.17 L (4.7-6.1) M/uL Hgb 12.1 L (14.0-18.0) g/dL POC Hgb (14.0-18.0) g/dl Hct 37.1 L (42-52) % POC Hct (42-52) % MCV 89.0 (80-100) fL MCH 29.0 (25-34) pg MCHC 32.6 (32-36) g/dL RDW Std Deviation 51.1 H (36.4-46.3) fL RDW Coeff of Madelyn 15.7 H (11.5-14.5) % Plt Count 180 (130-400) K/uL MPV 11.7 H (7.4-10.4) fL Immature Gran % (Auto) 0.3 % Neut % (Auto) 79.1 % Lymph % (Auto) 8.8 % [place] % (Auto) 11.3 % Eos % (Auto) 0.4 % Baso % (Auto) 0.1 % Neut # (Auto) 7.36 H (1.4-6.5) K/uL Lymph # (Auto) 0.82 L (1.2-3.4) K/uL [place] # (Auto) 1.05 H (0.11-0.59) K/uL Eos # (Auto) 0.04 (0-0.5) K/uL Baso # (Auto) 0.01 (0-0.2) K/uL Immature Gran # (Auto) 0.03 H (0.00-0.02) K/uL APTT 29.4 (21.0-31.0) Seconds PTT Ratio 1.1 Sample Site POC pH (7.35-7.45) POC pCO2 (35-46) mmHg POC pO2 (80-95) mmHg POC HCO3 (19-24) rad/L POC Total CO2 (24-31) mmol/L POC Base Excess (-9-1.8) rad/L ABG pH (7.35-7.45) ABG pH (Temp Correct) (7.35-7.45) ABG pCO2 (35-46) mmHg ABG pCO2 (Temp Corrct (35-46) mmHg ABG pO2 (80-95) mmHg POC ABG pO2 at Pt Temp ABG HCO3 (19-24) mmol/L POC ABG O2 Sat (90-95) % ABG O2 Saturation (90-95) % ABG Base Excess (-9-1.8) mEq/L Frank Test (Pos) Barometric Pressure mm/Hg Oxygen Given O2 Delivery Device POC O2 Rate POC FiO2 % IPAP POC Sodium (135-144) mmol/L Sodium (136-145) mmol/L POC Potassium (3.3-5.0) mmol/L Potassium (3.5-5.1) mmol/L Chloride (98-107) mmol/L Carbon Dioxide (21-32) mmol/L Anion Gap (3-11) BUN (7-18) mg/dl Creatinine (0.6-1.4) mg/dl Est Cr Clr Drug Dosing ml/min Est GFR ( Amer) ml/min Est GFR (Non-Af Amer) ml/min BUN/Creatinine Ratio (10-20) Glucose (70-99) mg/dl POC Glucose (70-99) mg/dl Lactate (0.4-2.0) mmol/L Calcium (8.5-10.1) mg/dl Phosphorus (2.5-4.9) mg/dl Magnesium (1.8-2.4) mg/dl Total Bilirubin (0.2-1) mg/dl Direct Bilirubin (0-0.2) mg/dl AST (15-37) U/L ALT (12-78) U/L Alkaline Phosphatase (45-117) U/L Ammonia (11-32) umol/L Troponin I (0-0.045) ng/ml NT-Pro-B Natriuret Pep (0-900) pg/ml Total Protein (6.4-8.2) gm/dl Albumin (3.4-5.0) gm/dl Globulin (2.5-4.0) gm/dl Albumin/Globulin Ratio (0.9-2) Lipase (73-393) U/L Procalcitonin (0-0.5) ng/ml Urine Color Urine Appearance (Clear) Urine pH (4.5-7.5) Ur Specific [place] (1.000-1.030) Urine Protein (Negative) Urine Glucose (UA) (Negative) Urine Ketones (Negative) Urine Blood (Negative) Urine Nitrite (Negative) Urine Bilirubin (Negative) Urine Urobilinogen (Negative) Ur Leukocyte Esterase (Negative) Nasal Screen MRSA (PCR) (Negative) Urine Opiates Screen (Neg) U Codeine Confrm GC/MS Ur Morphine (GC/MS) Ur Hydrocodone (GC/MS) Ur Norhydrocodone Ur Noroxycodone Urine Oxycodone (GC/MS) U Oxymorphone GC/MS Ur Methadone, Qual (Neg) Ur Hydromorphone (GC/MS) Urine Barbiturates (Neg) Ur Phencyclidine (PCP) (Neg) U Amphetamin/Meth Scrn (Neg) MDMA (Ecstasy) Screen (Neg) U Benzodiazepines Scrn (Neg) Ur Cocaine Metabolite (Neg) U Marijuana (THC) Screen (Neg) Drug Screen Comment COVID-19 Eval Order SARS-CoV-2 (PCR) (Negative) Medications Administered Current Inpatient Medications Heparin Sodium (Porcine) (Heparin Sod 5,000 Unit/0.5 Ml Vial) 5,000 units SQ Q12 TAMIKO Stop: 12/24/20 08:59 Piperacillin Sod/Tazobactam (Sod 4.5 gm/ Dextrose) 120 mls @ 30 mls/hr IV Q8H TAMIKO; Protocol Stop: 11/25/20 21:59 Last Admin: 11/24/20 06:18 Dose: 30 mls/hr Documented by: Miscellaneous (Icu Protocol For Hyperglycemia) 1 ea N/A PRN PRN; Protocol PRN Reason: Hyperglycemia Protocol Stop: 11/25/20 20:13 Miscellaneous Information (Piperacill/Tazobac Consult Active) 1 ea N/A UD PRN PRN Reason: Consult Stop: 12/23/20 15:06 Naloxone HCl (Naloxone Hcl 0.4 Mg/1 Ml Vial/Carp) 0.4 mg IV Q2H PRN PRN Reason: unresponsive Stop: 12/23/20 21:21 (1) Acute respiratory failure Respiratory failure complication: unspecified whether with hypoxia or hypercapnia Qualified Code(s): J96.00 - Acute respiratory failure, unspecified whether with hypoxia or hypercapnia
--- NOTE | 2020-11-24 07:46 | XRay Report ---
XR chest 1V portable CLINICAL HISTORY: Abnormal chest x-ray. Follow-up study. COMPARISON STUDY: 11/23/2020 FINDINGS: The heart is normal in size. There is no failure. There is no focal pulmonary consolidation . There are no pleural effusions.[ IMPRESSION: No active disease in the chest. ACT 112: Negative or not required by law. Electronically signed by: Basilio Darnell M.D. 11/24/2020 7:45 AM
[2020-11-24] MEDS ORDERED: HEPARIN SOD 5,000 UNIT/0.5 ML VIAL SQ SCH (09:00)
--- NOTE | 2020-11-24 09:18 | Critical Care Progress Note ---
Date of Service November 24, 2020 Assessment & Plan (1) Metabolic encephalopathy: Reason Critically Ill: Timothy is a 65-year-old male with a notable past medical history of left-sided below-knee amputation with associated phantom limb pain and chronic opioid use, type 2 diabetes, obstructive sleep apnea, anxiety, depression, hypertension who presented to [facility] for altered mental status, subsequently found to have acute hypoxic, hypercarbic respiratory failure thought to be secondary to prescription narcotic abuse; he was admitted to the ICU for intensive hemodynamic monitoring and for close evaluation for possible endotracheal intubation, which has not been required to this point. Neuro - CAM ICU: Negative. Sedation: None. Analgesia: None. Metabolic Encephalopathy * Patient presented with AMS, +CAM-ICU yesterday evening * Now, fully responsive to questioning, fully A+O * Suspect secondary to combination of features - hypercarbia, uremia, hypoxemia, possible prescription opioid excess/overdose * Of note -- patient with recent admission to [facility] in 09/2020. Patient's opioids were decreased significant thereafter. * CT-H negative. Lower suspicion for infectious etiology at this time * Does not seem necessary at this time, but low threshold for intubation p.r.n. Phantom Limb Pain / Chronic Pain * Patient with h/o LLE BKA with prosthetic limb * Will resume oxycodone 15mg PO b.i.d. for now Cardiac - HTN * Normotensive * Continue to hold home amlodipine for now Respiratory - Acute Hypoxic, Hypercarbic Respiratory Failure * Suspect secondary to narcotic overuse and, night prior to presentation, failure to wear BiPAP -- ENRIQUE could certainly be contributing too * Also likely component of pulmonary edema, too - resolved on CXR this AM s/p Lasix in the ED * Initial concern for PNA noted. With CXR being stable this morning, will d/c Zosyn * Will add azithromycin for antiinflammatory component GI - * As mentation improves, can resume normal diet (CC) RENAL/LYTES - Acute Kidney Injury * Baseline Cr seems to be between 0.6 - 0.9 * On presentation, noted to have BUN 60, Cr 2.6 (ratio 31) -- possibly prerenal - Improving on labs this AM: BUN 62 / Cr 2 * CT-A/P without evidence of uroliths or obstructive uropathy * Will order renal US for further evaluation * Nephrology consulted - appreciate insight and 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s * Promote PO intake, monitor I&Os - * Moy. Monitor I&Os (out ~2.3L since admission) * No concerns at this time ENDO - T2DM * Continue with SSI. Glycemic consult - appreciate management. * ICU Hyperglycemia protocol HEME - * Stable H&H ID - * Initial concerns for PNA noted. Did receive Levaquin and Zosyn in ED * Given normal CXR, negative procal, no fever, no leukocytosis, lower suspicion there is an infection-driven process at present * Discontinue Zosyn * Azithromycin, as above * Await BCX INTEGUMENTARY - LINES/IV ACCESS - PIVs intact. DVT PROPHYLAXIS - Hep SQ 7500 t.i.d. Thank you for allowing us to be part of this patient's care. Please refer to Dr. Melchor's documentation for any further 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s. (2) AARON (acute kidney injury): (3) Chronic narcotic use: (4) Fluid overload: (5) Acute respiratory failure: (6) Amputation below knee: (7) Altered mental status: (8) Shortness of breath: (9) Abdominal pain: (10) Diabetes mellitus type 2 with complications: (11) Diabetic ulcer of left foot: (12) Fever: (13) Obesity: (14) Charcot foot due to diabetes mellitus: (15) GERD (gastroesophageal reflux disease): (16) ENRIQUE (obstructive sleep apnea): (17) Anxiety: (18) Morbid obesity due to excess calories: (19) HTN (hypertension): (20) Smoker: Admission and Anticipated Discharge Date Admission Date: November 23, 2020 Supervising Physician Co-Signing Physician Notes Dr. Estrada was resident physician during care of patient. I separately evaluated patient for lemus portions of the history and the exam. I was present during the critical portion of medical decision making, and I discussed the case with the resident. I generally agree with the findings and plan. D escalate antibiotics to Zithromax single agent for COPD exacerbation p rocalcitonin normal in the setting of AARON, obtaining renal ultrasound to evaluate etiology of AARON. Continue BiPAP increase EPAP and follow-up VBG, complaining of 8/10 pain, will restart chronic narcotic at lower dose. I have personally spent 40 minutes of critical care time in the direct management of this patient. This is a life/limb threatening event. This includes time spent evaluating patient, direct bedside care, chart review, placing orders, interpretation of diagnostic studies, discussion with consultants, patient, and/or family members regarding treatment decisions, as well as other required patient management activities. This time is exclusive of all separately billable procedures, and teaching time and separate from and in addition to any other critical care service time. Subjective Patient seen at the bedside this morning. He was awake upon arrival and reports feeling well overall. He has the BiPAP on. Does not report any difficulty breathing. Does not report any pain. Denies any recent illnesses. No nausea or abdominal pain. Review of Systems Review of Systems: as per HPI Physical Exam Physical Exam: General: Tired appearing 65-year-old gentleman who is lying back in his hospital bed upon my arrival. He has his BiPAP on. He is fully responsive and responds to my questions in complete sentences. He is alert to person, place, and year, although he could not name either the current or former president. No acute distress. HEENT: NCAT. Eyes - Sclera are white, anicteric, and without injection. PERRL. BiPAP in place. Cardiac: Normal rate and regular rhythm; S1 and S2 present with no murmurs, rubs, or gallops. Pulmonary: Assisted with BiPAP. Good respiratory effort with symmetric expansion of the chest. No use of accessory muscles. Mild diminishment in lung sounds at the right base, but otherwise did sound clear to auscultation bilaterally without appreciable crackles or wheezes. Abdominal: Normoactive bowel sounds. Abdomen was soft, nondistended, and non- tender to palpation. Neuro: - Motor: UE - elbow, and shoulder strength is 5/5 bilaterally. LE - Hip strength is 5/5 bilaterally. - Sbneln-al-ojbs: WNL b/l. No dysmetria. Extremities: Upper and lower extremities are warm and well perfused. Left prosthetic limb noted. Capillary refill assessed in UE was < 3 sec. Results & Data Results & Data ([facility]) Vital Signs (Past 12 Hours) Vital Signs Temp Pulse Resp BP Pulse Ox Pulse Ox 11/24/20 08:00 97 H 11/24/20 07:42 97 H 14 115/71 100 11/24/20 07:41 95 H 22 100 11/24/20 07:12 99 H 13 123/71 100 11/24/20 06:42 96 H 18 93/67 L 99 11/24/20 06:12 96 H 16 116/73 100 11/24/20 05:42 96 H 17 114/64 100 11/24/20 05:12 93 H 16 129/80 100 11/24/20 04:50 90 18 100 11/24/20 04:42 93 H 16 108/72 98 11/24/20 04:12 95 H 15 98/62 L 97 11/24/20 03:42 100 H 14 115/71 100 11/24/20 03:12 96 H 15 112/79 100 11/24/20 02:42 95 H 16 115/67 100 11/24/20 02:12 101 H 17 129/75 98 11/24/20 01:59 102 H 21 100 11/24/20 01:12 94 H 21 108/68 98 11/24/20 00:12 96 H 18 114/67 100 11/23/20 23:12 94 H 16 99/62 L 100 11/23/20 22:12 100 H 17 119/77 100 11/23/20 21:42 36.6 C 100 H 16 121/79 96 11/23/20 21:38 99 H 19 96 11/23/20 21:16 100 11/23/20 21:12 95 H 32 H 97/58 L 94 (1) Diabetic ulcer of left foot Diabetes mellitus type: other specified (including HARIKA) Diabetic foot ulcer location: unspecified part of foot Non-pressure ulcer stage: unspecified non- pressure ulcer stage Qualified Code(s): E13.621 - Other specified diabetes mellitus with foot ulcer; L97.529 - Non-pressure chronic ulcer of other part of left foot with unspecified severity (2) Fever Fever type: unspecified Qualified Code(s): R50.9 - Fever, unspecified (3) Acute respiratory failure Respiratory failure complication: unspecified whether with hypoxia or hypercapnia Qualified Code(s): J96.00 - Acute respiratory failure, unspecified whether with hypoxia or hypercapnia (4) Altered mental status Altered mental status type: disorientation Qualified Code(s): R41.0 - Disorientation, unspecified (5) Abdominal pain Abdominal location: unspecified location Qualified Code(s): R10.9 - Unspecified abdominal pain
--- NOTE | 2020-11-24 09:56 | Billing Data ---
Date of Service November 24, 2020 Coding Level of Care Code Critical Care 1st 30-74 mins
[2020-11-24] MEDS ORDERED: PHARMACY GLYCEMIC MGMT CONSULT PRN (10:11)
[2020-11-24] MEDS ORDERED: AZITHROMYCIN 250 MG TAB PO ONE (10:15)
--- NOTE | 2020-11-24 10:18 | Nephrology Consultation ---
Date of Consultation November 24, 2020 Assessment & Plan (1) AARON (acute kidney injury): recurrent AARON, this time Stage 3 (at least Stage 2 in September) and nonoliguric with at least a partial obstructive component (retention) on this presentation and brisk post obstructive diuresis today w/o administration of diuretics. acceptable chemistries. acidemia on presentation, this am is respiratory. he is mildly volume overloaded on exam but is autodiuresing currently - diuretics prn only. cause of AARON at previous hospital in September unclear but short lived. -daily bmp -ok from renal standpoint to resume his OP lyrica > but would dose renally -continue to encourage/support bipap/cpap/treligy use -trial of flomax for urinary retention; ok to d/c houston from nephro standpoint -continue to hold metformin, losartan -monitor mental status as oxycontin reintroduced -will need OP nephro follow up since he's had severe renal failure x 2 episodes in 3 mos -will need OP work up for liver cirrhosis if not already underway -f/u renal u/s report Present on Admission?: Yes History of Present Illness Reason for Consultation: AARON Requesting Physician: Dr Da Silva Attending Physician: Jaren Da Silva MD History of Present Illness 65 y/o M whom I'm asked to evaluate for AARON was admitted last evening with acute respiratory failure and multifocal pneumonia. His presenting creatinine was 3, improved to 2 this AM. He was noted to have urinary retention in ER and h[place] placed w/ immediate 1.3L UOP; he is overall 3.1L negative so far today. He was recently hospitalized at [facility] in September w/ acute hypercapneic respiratory failure attributed to accidental narcotic overdose, L sided pneumonia, and AARON w/ peak creatinine 2 on 09/29, improved to his 0.6 by hospital d/c on 10/02. PMH includes DM, HTN, EtOH liver cirrhosis, severely symptomatic GERD, COPD, ENRIQUE not adherent w/ BiPAP, PVD s/p L AKA, R Charcot foot, active tobacco abuse. Jaswinder cullen outpatient creatinine is 0.7-0.8. He denies nsaid use as OP/prior to admission. He tells me he's taken no EtOH in November; has been having much less EtOH than prior > usually less than a beer a day in October "it doesn't taste good." He takes lyrica as OP and is anxious to resume it. He denies dyspnea, n/v/abd pain, chest pain to me. Thinks his edema is about baseline. no rash or derm f indings. No f/c. Allergies Allergy/AdvReac Type Severity Reaction Status Date / Time ketorolac Allergy Unknown BURNING Verified 11/23/20 18:13 SENSATION tramadol Allergy Unknown GI UPSET Verified 11/23/20 18:13 ciprofloxacin [From Cipro] AdvReac Intermediate upset Verified 11/23/20 18:13 stomach Home Medications Medication Instructions Recorded Confirmed Type losartan 100 mg PO DAILY 04/21/18 11/23/20 History metoprolol succinate 50 mg PO DAILY 11/28/18 11/23/20 History Lantus Solostar U-100 Insulin 20 unit SUBCUT DAILY 12/12/19 11/23/20 History metformin 1,000 mg PO BID 12/12/19 11/23/20 History ondansetron 4 mg TRANSLINGUAL Q8 PRN 12/12/19 11/23/20 History sertraline [Zoloft] 50 mg PO HS #30 tab 12/14/19 Rx amlodipine 10 mg PO DAILY 11/23/20 11/23/20 History oxycodone 10 mg PO Q6H PRN 11/23/20 11/23/20 History oxycodone [OxyContin] 20 mg PO DAILY 11/23/20 11/23/20 History pantoprazole 40 mg PO DAILY 11/23/20 11/23/20 History pregabalin 225 mg PO TID 11/23/20 11/23/20 History sertraline 100 mg PO DAILY 11/23/20 11/23/20 History thiamine HCl (vitamin B1) [Vitamin 100 mg PO DAILY 11/23/20 11/23/20 History B-1] Patient History Medical History Acquired claw toe of left foot Anxiety Callus Charcot's joint of right foot Charcot's joint, left ankle and foot Chronic narcotic use Chronic pain Chronic ulcer of left midfoot Depression Diabetes mellitus with diabetic polyneuropathy DMII (diabetes mellitus, type 2) GERD (gastroesophageal reflux disease) HTN (hypertension) Liver cirrhosis Morbid obesity due to excess calories Multiple rib fractures involving four or more ribs OA (osteoarthritis) of knee ENRIQUE (obstructive sleep apnea) Smoker Surgical History H/O knee surgery History of bilateral knee replacement S/P AKA (above knee amputation) unilateral Left S/P trigger finger release Family History Father Lung cancer Mother Hypertension Dementia Social History Smoking Status: Current every day smoker Tobacco Type: Cigarettes Cigarettes Per Day: 20; Second Hand Exposure: No; Do You Dip or Chew Tobacco: No; Tobacco Cessation Education Requested by Patient: No Hx Alcohol Use: Yes Alcohol type: beer Hx Substance Use: No Preferred Language: Bulgarian Communication Ability: Effective Visual Impairment: No Limitations Straightener Required: No Beliefs That Will Affect Care: None marital status: Current Living Situation: Family Other Information That Helps Us Care for You: No Feels Safe at Home: Yes Assistive Devices: BiPap Review of Systems Review of Systems: All systems reviewed & are unremarkable except as noted in HPI & below Physical Exam Constitutional: well developed, + morbidly obese and cooperative; no acute distress Eyes: EOM intact bilaterally and + anisocoria ENMT: Ears: no external ear abnormality Nose: no external nose abnormality Mouth: + dry oral mucous membranes Neck: no nuchal rigidity Respiratory: normal respiratory effort and able to speak in complete sentences; no respiratory distress, no labored breathing and expiratory phase not prolonged Auscultation: + diminished lung sounds and + crackles (bibasilar) Cardiovascular: Rate/Rhythm: regular rhythm and + tachycardic (in 90s) Extremities: + edema (2+ RLE) Gastrointestinal (Abdomen): Inspection/Auscultation: normal bowel sounds; abdomen not distended Percussion/Palpation: abdomen soft; abdomen nontender and no guarding Musculoskeletal: Extremities: strength 5/5 throughout Skin: no rashes, warm and dry Neurologic: munoz, fluent speech, no tremor Psychiatric: Orientation: alert and oriented x 3 Speech: normal rate/rhythm/volume of speech Affect: + flat affect Genitourinary: [place] w/ ample yellow urine Results & Data ([facility]) Vital Signs (Past 12 Hours) Vital Signs Pulse Resp BP Pulse Ox 11/24/20 08:00 97 H 11/24/20 07:42 97 H 14 115/71 100 11/24/20 07:41 95 H 22 100 11/24/20 07:12 99 H 13 123/71 100 11/24/20 06:42 96 H 18 93/67 L 99 11/24/20 06:12 96 H 16 116/73 100 11/24/20 05:42 96 H 17 114/64 100 11/24/20 05:12 93 H 16 129/80 100 11/24/20 04:50 90 18 100 11/24/20 04:42 93 H 16 108/72 98 11/24/20 04:12 95 H 15 98/62 L 97 11/24/20 03:42 100 H 14 115/71 100 11/24/20 03:12 96 H 15 112/79 100 11/24/20 02:42 95 H 16 115/67 100 11/24/20 02:12 101 H 17 129/75 98 11/24/20 01:59 102 H 21 100 11/24/20 01:12 94 H 21 108/68 98 11/24/20 00:12 96 H 18 114/67 100 11/23/20 23:12 94 H 16 99/62 L 100 Laboratory Results 11/24/20 04:59 11/24/20 04:59 UA dark yellow urine which is clear with a specific gravity of 1016 and pH of 5 with otherwise negative indices. ABGs reviewed Diagnostic Findings CT abd/pelvis FINDINGS: Cardiomegaly. Coronary artery calcifications. Patchy consolidative bibasilar opacities, right greater than left. No pneumatosis or pneumoperitoneum. Spleen is enlarged measuring up to 17 cm in length. Limited evaluation of the solid abdominal organs without the use of IV contrast. Unremarkable pancreas, gallbladder and adrenal glands. Cirrhosis with hepatic steatosis. Unremarkable kidneys. No hydronephrosis. Mild urinary bladder distention. Small fat filled right inguinal hernia. Atherosclerosis of the aorta without aneurysm. There is no adenopathy. Mild wall thickening of the distal esophagus which is fluid-filled. No bowel obstruction or bowel wall thickening. The appendix is not visualized. No secondary signs of acute appendicitis. No ascites or mesenteric inflammation. Small fat and fluid filled periumbilical hernia. Degenerative changes of the spine, pelvis and hips. Healed chronic right-sided rib fractures. No acute fracture identified. IMPRESSION: 1. No urolith or obstructive uropathy. 2. Bibasilar patchy consolidative opacities are suggestive of multifocal pneumonia. 3. Cirrhosis with hepatic steatosis. 4. Splenomegaly. 5. No bowel obstruction or bowel wall thickening. 6. Small fat and fluid filled periumbilical hernia. Head CT > no acute IC abnormality CXR yesterday 1. Cardiomegaly with pulmonary vascular congestion. 2. Mild asymmetric interstitial coarsening of the right lung base suggestive of atelectasis versus pneumonitis. CXR today no active CP disease > no consolidation, no vascular congestion renal u/s pending
[2020-11-24] MEDS: oxyCODONE HCL 15 MG TABCR (OxyCONTIN) PO SCH ×2 (10:25→20:49)
[2020-11-24] MEDS ORDERED: DEXTROSE 50% 50 ML SYRINGE IV PRN (10:30)
[2020-11-24] MEDS ORDERED: GLUCOSE 40% GEL 15 GM TUBE PO PRN (10:30)
[2020-11-24] MEDS ORDERED: GLUCOSE 10 TABS/TUBE PO PRN (10:30)
[2020-11-24] MEDS ORDERED: CARBOHYDRATES FOR HYPOGLYCEMIA PO PRN (10:30)
[2020-11-24] MEDS ORDERED: GLUCAGON FOR INJ 1 MG VIAL IM PRN (10:30)
[2020-11-24 10:35] LABS: Estimated Average Glucose 123 mg/dl; Hemoglobin A1C 5.9 % (4.5-5.6)
[2020-11-24 10:37] LABS: Base Excess VBG 1.9 mEq/L; HCO3 VBG 30 mmol/L; PCO2 VBG 62 mmHg (38-50); PO2 VBG 31 mmHg
[2020-11-24 10:38] LABS: Oxygen Saturation VBG < 60.0 %
[2020-11-24] MEDS: INSULIN ASPART 100 UNITS/ML 3 ML PEN SC SCH ×3 (11:14→20:44)
--- NOTE | 2020-11-24 12:35 | Pharmacy Report ---
Pharmacy Glycemic Short Note 2 - Date of Service November 24, 2020 - Glycemic Short BSG Results (Last 24 hours): 11/23/20 11/23/20 11/23/20 14:32 21:30 21:35 Glucose 113 H 121 H POC Glucose 141 H 11/24/20 11/24/20 04:59 08:03 Glucose 101 H POC Glucose 114 H OUTPATIENT ANTIDIABETIC REGIMEN: * Lantus 20 units daily * Metformin 1000mg PO BID * A1c = 5.9% 11/24/20 ASSESSMENT: * Type 2 diabetic admitted for mental status changes and resp failure, likely secondary to opiate medication use, new AARON and non-compliance with BiPAP) * A1c indicates good control w/ outpt regimen. * BSGs within goal thus far this admission * Reviewed past admissions and insulin requirements, basal needs tend to be 10 units or less per day. Will hold basal insulin today given current BSGs and AARON. Will begin Novolog scale considering past requirements. PLAN FOR INPATIENT GLYCEMIC CONTROL: * Hold outpatient oral diabetes medications * Basal insulin * Lantus SQ QAM per scale: 0 units if BSG less than 110, 10 units if BSG 110 or greater * Bolus insulin * NovoLog per scale ACHS or Q6hrs while NPO * Goal Range: Low 110 mg/dL - High 140 mg/dL * Correction Factor: 25 mg/dL/unit * Nutritional / Prandial insulin per carb ratio of 1 unit per 8 grams CHO consumed PLAN FOR DISCHARGE: * may resume home medications (metformin + Lantus) if AARON resolved and no contraindications present at time of discharge.
[2020-11-24] MEDS: HEPARIN SOD 5,000 UNIT/0.5 ML VIAL SQ SCH (15:58)
--- NOTE | 2020-11-24 17:33 | Electrocardiogram Report ---
Test Reason : Blood Pressure : / mmHG Vent. Rate : 099 BPM Atrial Rate : 099 BPM P-R Int : 152 ms QRS Dur : 088 ms QT Int : 318 ms P-R-T Axes : 038 023 029 degrees QTc Int : 408 ms Normal sinus rhythm When compared with ECG of 14-DEC-2019 07:26, Vent. rate has increased BY 46 BPM Nonspecific T wave abnormality now evident in Inferior leads Confirmed by Reed Chu ([id number]) on 11/24/2020 5:33:22 PM Referred By: REFERRED SELF Confirmed By:Kirby Chu
--- NOTE | 2020-11-24 20:24 | Ultrasound Report ---
RENAL ULTRASOUND CLINICAL HISTORY: Acute kidney injury. COMPARISON STUDY: CT of the abdomen and pelvis November 23, 2020. TECHNIQUE: Sonography of the kidneys and the urinary bladder was performed. FINDINGS: There is no hydronephrosis. The right kidney measures 12.9 cm in maximal dimension and the left measures 12.6 cm. No renal calculus or mass is identified. Bladder is decompressed, containing a Moy catheter. There is mild bilateral renal cortical thinning. IMPRESSION: No hydronephrosis. ACT 112: Negative or not required by law. Electronically signed by: Lm Colón M.D. 11/24/2020 8:23 PM
[2020-11-24] MEDS: PREGABALIN 75 MG CAP PO SCH (20:49)
[2020-11-25] MEDS: HEPARIN SOD 5,000 UNIT/0.5 ML VIAL SQ SCH ×4 (00:26→22:58)
[2020-11-25 05:08] LABS: Eosinophils # (auto) 0.09 K/uL (0-0.5); Hematocrit (blood only) 34.4 % (42-52); Hemoglobin 11.3 g/dL (14.0-18.0); Immature Granulocytes # (auto) 0.01 K/uL (0.00-0.02); Immature Granulocytes % (auto) 0.2 %; Lymphocytes # (auto) 1.14 K/uL (1.2-3.4); Lymphocytes % (auto) 25.4 %; Mean Corpuscular Hemoglobin 29.4 pg (25-34); Mean Corpuscular Hgb Conc 32.8 g/dL (32-36); Mean Corpuscular Volume 89.4 fL (80-100); Mean Platelet Volume 11.1 fL (7.4-10.4); Monocytes # (auto) 0.66 K/uL (0.11-0.59); Monocytes % (auto) 14.7 %; Neutrophils # (auto) 2.58 K/uL (1.4-6.5); Neutrophils % (auto) 57.7 %; Platelet Count 125 K/uL (130-400); RDW Coefficient of Variation 15.7 % (11.5-14.5); RDW Standard Deviation 51.6 fL (36.4-46.3); Red Blood Count 3.85 M/uL (4.7-6.1); White Blood Count 4.48 K/uL (4.8-10.8)
[2020-11-25 05:12] LABS: Base Excess VBG 4.9 mEq/L; Oxygen Saturation VBG 80.8 %; pH VBG 7.44 (7.36-7.41)
[2020-11-25 05:35] LABS: Albumin Level 2.8 gm/dl (3.4-5.0); BUN Creatinine Ratio 44.8 (10-20); Calcium 9.4 mg/dl (8.5-10.1); Est GFR (African American) 108.9 ml/min; Est GFR (Non-African American) 93.9 ml/min; Magnesium 2.1 mg/dl (1.8-2.4); Potassium 4.1 mmol/L (3.5-5.1)
[2020-11-25 05:53] LABS: Albumin Globulin Ratio 0.6 (0.9-2); Bilirubin,Total 0.6 mg/dl (0.2-1); Globulin 4.5 gm/dl (2.5-4.0); Phosphorus 1.4 mg/dl (2.5-4.9); Total Protein 7.3 gm/dl (6.4-8.2)
--- NOTE | 2020-11-25 06:13 | Critical Care Progress Note ---
Date of Service November 25, 2020 Assessment & Plan (1) Metabolic encephalopathy: Reason Critically Ill: Timothy is a 65-year-old male with a notable past medical history of left-sided below-knee amputation with associated phantom limb pain and chronic opioid use, type 2 diabetes, obstructive sleep apnea, anxiety, depression, hypertension who presented to [facility] for altered mental status, subsequently found to have acute hypoxic, hypercarbic respiratory failure thought to be secondary to prescription narcotic abuse; he was admitted to the ICU for intensive hemodynamic monitoring and for close evaluation for possible endotracheal intubation, which has not been required to this point. Neuro - CAM ICU: Negative. Sedation: None. Analgesia: None. Metabolic Encephalopathy * Patient presented with AMS, +CAM-ICU upon arrival * Now, fully responsive to questioning, fully A+O * Suspect this was secondary to combination of features - hypercarbia, uremia, hypoxemia, possible prescription opioid excess/overdose * Of note -- patient with recent admission to [facility] in 09/2020. Patient's opioids were decreased significant thereafter, but still taking ~60- 80mg/day Phantom Limb Pain / Chronic Pain * Patient with h/o LLE BKA with prosthetic limb * Will resume oxycodone 15mg PO b.i.d. * Re-added Lyrica 225mg PO t.i.d. * Patient would benefit from pain management consult as an outpatient Cardiac - HTN * Normotensive * Continue to hold home amlodipine for now Respiratory - Acute Hypoxic, Hypercarbic Respiratory Failure * Suspect secondary to narcotic overuse and, night prior to presentation, failure to wear BiPAP, likely ENRIQUE, possible component of pulmonary edema * VBG this AM: 7.44 / pCO2 45 / HCO3 30 -- much improved. * Azithromycin x 5 days GI - * As mentation improves, can resume normal diet (CC) Cirrhotic Liver Morphology * Appreciated on CT-AP upon admission * LFTs normal. Albumin slightly low. * Will require outpatient f/u / w/u RENAL/LYTES - Acute Kidney Injury -- Resolved * Baseline Cr seems to be between 0.6 - 0.9 * On presentation, noted to have BUN 60, Cr 2.6 (ratio 31) -- possibly prerenal * Now at BUN 36 / Cr 0.81 -- very much improved * Nephrology consulted - appreciate insight and 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s - Trial of Flomax for urinary retention - Hold losartan, metformin * CT-A/P without evidence of uroliths or obstructive uropathy * Renal US: unremarkable * Promote PO intake, monitor I&Os - * Moy. Monitor I&Os (out ~2.3L since admission) * No concerns at this time ENDO - T2DM * Continue with SSI. Glycemic consult - appreciate management. * ICU Hyperglycemia protocol HEME - * Stable H&H ID - * Initial concerns for PNA noted. Did receive Levaquin and Zosyn in ED * Given normal CXR, negative procal, no fever, no leukocytosis, lower suspicion there is an infection-driven process at present * Discontinue Zosyn * Azithromycin, as above * Await BCX - [id number] LINES/IV ACCESS - PIVs intact. DVT PROPHYLAXIS - Hep SQ 7500 t.i.d. Thank you for allowing us to be part of this patient's care. Please refer to Dr. Melchor's documentation for any further 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s. (2) AARON (acute kidney injury): (3) Chronic narcotic use: (4) Fluid overload: (5) Acute respiratory failure: (6) Amputation below knee: (7) Altered mental status: (8) Shortness of breath: (9) Abdominal pain: (10) Diabetes mellitus type 2 with complications: (11) Diabetic ulcer of left foot: (12) Fever: (13) Obesity: (14) Charcot foot due to diabetes mellitus: (15) GERD (gastroesophageal reflux disease): (16) ENRIQUE (obstructive sleep apnea): (17) Anxiety: (18) Morbid obesity due to excess calories: (19) HTN (hypertension): (20) Smoker: Admission and Anticipated Discharge Date Admission Date: November 23, 2020 Supervising Physician Co-Signing Physician Notes Dr. Estrada was resident physician during care of patient. I separately evaluated patient for lemus portions of the history and the exam. I was present during the critical portion of medical decision making, and I discussed the case with the resident. I generally agree with the findings and plan. Respiratory failure is improved and now tolerating room air. Acute kidney injury has improved and is stable for downgrade out of ICU. Subjective Patient seen at the bedside this morning. No acute events overnight. He did wear his BiPAP, per nursing, he did have a few seconds of apnea every 1 to 2 minutes regardless. He feels well this morning overall. Very much wants to leave the hospital. We spent significant time discussing the close relationship between narcotic use and his breathing. At first, he did mention that "I do not really care what happens to me, I just want to be home." When asked about his long-term goals, he says he wants to be able to get around normally. He says he does not want to be in the hospital like these past 2 times. He says that the major difficulty with ambulation is with regards to his prosthetic limb and Charcot foot; he follows with Dr. gio Childs every 6 months with this, but still reports significant amount of pain. I did explain to him my concern about the amount of narcotics he uses to control his pain, and the potential for respiratory suppression to occur. After walking through the physiology, he does seem to understand; he was actually asking if he may be able to get off narcotics long-term. He does seem open to exploring other avenues of pain control. He is very interested in the idea of a pain management physician. Through this discussion, I also learned that it does not sound like he has a provider overseeing management of his BiPAP. He denies any chest pain, palpitations, shortness of breath. No pain this morning. No nausea. Good appetite. Eager to leave the hospital. Review of Systems Review of Systems: as per HPI Physical Exam Physical Exam: General: Tired appearing 65-year-old gentleman who is lying back in his hospital bed upon my arrival. He is fully responsive and responds to my questions in complete sentences.. No acute distress. HEENT: NCAT. Eyes - Sclera are white, anicteric, and without injection. PERRL. BiPAP in place. Cardiac: Normal rate and regular rhythm; S1 and S2 present with no murmurs, rubs, or gallops. Pulmonary: Good respiratory effort with symmetric expansion of the chest. No use of accessory muscles. Mild diminishment in lung sounds at the right base, but otherwise did sound clear to auscultation bilaterally without appreciable crackles or wheezes. Abdominal: Normoactive bowel sounds. Abdomen was soft, nondistended, and non- tender to palpation. Extremities: Warm and well perfused. Prosthetic leg noted on L Results & Data Results & Data ([facility]) Vital Signs (Past 12 Hours) Vital Signs Pulse Resp BP Pulse Ox Pulse Ox 11/24/20 22:12 90 17 99 11/24/20 20:13 85 15 126/81 95 11/24/20 20:00 97 11/24/20 19:12 90 14 108/76 92 11/24/20 18:42 89 16 123/94 90 Resident Activity Tracking Resident Involvement: Resident Care Provided Care Provided: Adult Hospital Medicine (1) Diabetic ulcer of left foot Diabetes mellitus type: other specified (including HARIKA) Diabetic foot ulcer location: unspecified part of foot Non-pressure ulcer stage: unspecified non- pressure ulcer stage Qualified Code(s): E13.621 - Other specified diabetes mellitus with foot ulcer; L97.529 - Non-pressure chronic ulcer of other part of left foot with unspecified severity (2) Fever Fever type: unspecified Qualified Code(s): R50.9 - Fever, unspecified (3) Acute respiratory failure Respiratory failure complication: unspecified whether with hypoxia or hypercapnia Qualified Code(s): J96.00 - Acute respiratory failure, unspecified whether with hypoxia or hypercapnia (4) Altered mental status Altered mental status type: disorientation Qualified Code(s): R41.0 - Disorientation, unspecified (5) Abdominal pain Abdominal location: unspecified location Qualified Code(s): R10.9 - U nspecified abdominal pain
[2020-11-25] MEDS ORDERED: POTASSIUM PHOS 3 MMOL/1 ML INFUSION IV STA (06:25)
[2020-11-25] MEDS ORDERED: POTASSIUM PHOSPHATE 9 MMOL in SODIUM CHLORIDE 0.9% 250 ML IV ONE (07:00)
[2020-11-25] MEDS: INSULIN ASPART 100 UNITS/ML 3 ML PEN SC SCH ×4 (07:56→20:47)
[2020-11-25] MEDS: AZITHROMYCIN 250 MG TAB PO SCH (07:57)
[2020-11-25] MEDS: INSULIN GLARGINE SOLOSTAR 100 UNITS/ML 3 ML PEN SC SCH (07:58)
--- NOTE | 2020-11-25 08:09 | XRay Report ---
XR chest 1V portable HISTORY: Abnormal chest CT. Follow-up. COMPARISON: Chest 11/24/2020. FINDINGS: Faint patchy bibasilar densities are again noted. There are low lung volumes. No pneumothor ax. No pleural effusions. The heart is normal in size. No evidence for pulmonary edema. IMPRESSION: Faint patchy bibasilar densities are again noted. This could represent atelectasis or pneumonia. ACT 112: Negative or not required by law. Electronically signed by: Rojelio Meredith M.D. 11/25/2020 8:07 AM
--- NOTE | 2020-11-25 08:59 | Billing Data ---
Date of Service November 25, 2020 Coding Level of Care Code 28937 Subseq Hosp Care Lvl 3
[2020-11-25] MEDS: oxyCODONE HCL 15 MG TABCR (OxyCONTIN) PO SCH ×2 (09:14→20:47)
[2020-11-25] MEDS: PREGABALIN 75 MG CAP PO SCH ×3 (09:14→20:47)
--- NOTE | 2020-11-25 09:44 | Nephrology Progress Note ---
Date of Service November 25, 2020 Assessment & Plan (1) AARON (acute kidney injury): rapidly resolved but recurrent AARON, this time Stage 3 (at least Stage 2 in September) and nonoliguric with at least a partial obstructive component (retention) on this presentation and brisk post obstructive diuresis again today w/o administration of diuretics. acceptable chemistries except for low phos. respiratory acidemia on presentation, now resolved. he is mildly volume overloaded on exam but is autodiuresing currently. cause of AARON at previous hospital in September unclear but also short lived. -daily bmp, phos -ok from renal standpoint to resume his OP lyrica -continue to encourage/support bipap/cpap/treligy use -trial of flomax for urinary retention; voiding trial IP versus OP -would give at least another 1-2 days before resuming metformin, losartan -monitor mental status as oxycontin reintroduced -will need OP nephro follow up since he's had severe renal failure x 2 episodes in 3 mos -will need OP work up for liver cirrhosis if not already underway -given edema / overload will check protein/creat ratio/eval for nephrotic syndrome -for HTN today, trial of amlodipine 5 mg not 10 daily d/t edema (so ordered); defer to primary service to control pain and monitor for EtOH w/drawal Admission and Anticipated Discharge Date Admission Date: November 23, 2020 Subjective seen on rounds about 1445; feels improved, anxious for d/c, denies edema, sob; tolerating [place] and po Review of Systems Review of Systems: All systems reviewed & are unremarkable except as noted in Subjective Physical Exam Constitutional: well developed, + morbidly obese and cooperative; no acute distress Eyes: EOM intact bilaterally and + anisocoria ENMT: Ears: no external ear abnormality Nose: no external nose abnormality Mouth: + dry oral mucous membranes Neck: no nuchal rigidity Respiratory: normal respiratory effort and able to speak in complete sentences; no respiratory distress, no labored breathing and expiratory phase not prolonged Auscultation: lungs clear to auscultation bilaterally and + diminished lung sounds Cardiovascular: Rate/Rhythm: regular rhythm and + tachycardic (in 90s) Extremities: + edema (2+ RLE) Gastrointestinal (Abdomen): Inspection/Auscultation: normal bowel sounds; abdomen not distended Percussion/Palpation: abdomen soft; abdomen nontender and no guarding Musculoskeletal: Extremities: strength 5/5 throughout Skin: no rashes, warm and dry Psychiatric: Orientation: alert and oriented x 3 Speech: normal rate/rhythm/volume of speech Affect: + flat affect Genitourinary: [place] w/ ample avery urine Results & Data ([facility]) Vital Signs (Past 12 Hours) Vital Signs Pulse Resp BP Pulse Ox 11/25/20 07:42 89 15 142/100 H 98 11/25/20 06:39 76 16 146/92 H 99 11/25/20 06:23 84 17 146/114 H 96 11/25/20 05:43 70 17 206/138 H 99 11/25/20 04:43 90 13 182/140 H 96 11/25/20 03:43 92 H 12 215/140 H 98 11/25/20 02:43 82 17 154/102 H 96 11/25/20 01:43 83 18 158/100 H 93 11/25/20 00:43 88 15 152/88 H 96 11/24/20 23:43 93 H 14 114/72 97 11/24/20 22:43 91 H 17 148/102 H 97 11/24/20 22:12 90 17 99 11/24/20 21:43 90 12 168/97 H 99 Laboratory Results 11/25/20 05:01 11/25/20 05:01 phos 1.4 renal u/s w/o hydroneprhosis; CXR this am w/o OL
[2020-11-25] MEDS: amLODIPine BESYLATE 5 MG TAB PO SCH (10:44)
[2020-11-25] MEDS ORDERED: SODIUM PHOSPHATE 3 MMOL/1 ML INFUSION IV STA (11:33)
--- NOTE | 2020-11-25 11:36 | Hospitalist Progress Note ---
Date of Service November 25, 2020 Assessment & Plan (1) Acute respiratory failure: Pt is 65 y/o M with PMH DM II, DM HTN, HLD, ENRIQUE previously noncompliant with CPAP, now on BiPAP at bedtime, Left BKA, phantom limb pain on chronic narcotic, Anxiety, depression, Charcot joint, obesity presented to ER for altered mental status since yesterday morning. Did not have Bipap on last night. H/O hospitalization for acute hypercapnic respiratory failure in setting of excessive opiate use. Was treated with BiPAP and Narcan, discharged on Triology His oxycodone ER was reduced from 30 mg twice daily to 20 mg twice daily. Oxycodone was reduced from 15 mg every 6 hours as needed pain to 10 mg every 6 hours as needed pain Today in ER it is reported patient was noted to be hypoxic at 89% on room air, afebrile, tachycardic at 106 and somnolent. ABG: pH: 7.26, PO2: 118, PCO2: 53, HCO3: 23. Lactate: 1.0, Procalcitonin: 0.17 CXR question pneumonitis versus atelectasis right lower lobe, pulmonary vascular congestion In ER was ordered 1 L NSS, 1 hour albuterol neb, Lasix 40 mg IV, Zosyn, Levaquin. Patient was initially placed on BiPAP with O2 sat from 89 to 96% and reported to become a little more alert. Later in ER course 0.2 Narcan was given and reported patient became more awake. Patient went to CT and back to ER was not placed back on BiPAP initially. BiPAP replaced with repeat ABG in 30 minutes improved with pH: 7.3, pCO2: 45, pO2: 128, HCO3: 21 Pt was given additional dose Narcan without much improvement Pt was admitted to ICU for further observation and treatment Continue Bipap Difficulties w/ BiPAP/trilogy, contacted that patient's trilogy shut off, will need to contact appropriate service to make sure that patient can be discharged safely with trilogy home Clinically much improved, now he is awake and able to answer questions appropriately (2) Pneumonia: recent pneumonia in 09/2020 during hospitalization at [facility] CT ABD/PELVIS: Bibasilar patchy consolidative opacities are suggestive of multifocal pneumonia. In ER given Zosyn, Levaquin Continue zosyn Possible aspiration (3) Metabolic encephalopathy: Probable secondary to opioid overuse, AARON, hypercapnia Pt probably not clearing opioids secondary to poor renal function Monitor Treatment as above Mental status now much improved, patient is able to answer questions appropriately (4) AARON (acute kidney injury): BUN: 62, Cr: 3, GFR: 20. Baseline Cr: 0.6. (09/2020 hospitalization also had AARON with Cr up to 2) CT ABD/PELVIS: No urolith or obstructive uropathy. Possible secondary to urinary retention Avoid nephrotoxic agents when possible Nephrology consulted Creatinine is 0.8, AARON resolved Nephrology need to follow-up as outpatient Started on amlodipine for hypertension (5) Urinary retention: Bladder scan 500 mL. Patient unable to urinate. Catheter placed in ER and 1300ml drained Plan for urology follow-up (6) Fluid overload: CXR: pulmonary vascular congestion In ER given lasix 40mg IV (7) ENRIQUE (obstructive sleep apnea): Prior history non-compliance with CPAP. Recently started using Triology HS. (8) Chronic narcotic use: (9) DMII (diabetes mellitus, type 2): glycemic management per ICU (10) HTN (hypertension): management per ICU (11) Obesity: (12) Anxiety: Admit ICU Full Code as per discussion with pt and pt's Follows with Dr Bates for routine care Admission and Anticipated Discharge Date Admission Date: November 23, 2020 Subjective Patient seen in follow-up of altered mental status, hypercapnia, hypoxia, AARON Patient currently laying in bed, in NAD He is now awake and able to answer questions appropriately Creatinine improved after Moy catheter placed Denies any chest pain, fevers, chills, abdominal pain, nausea or vomiting, he is not short of breath Some difficulty with using BiPAP/trilogy Contacted trilogy machine shut off, will discuss further to make sure that patient can be discharged safely home with trilogy Will transfer out of ICU Review of Systems Review of Systems: All systems reviewed & are unremarkable except as noted in HPI & below Constitutional: no fever and no chills Respiratory: no cough and no dyspnea Cardiovascular: no chest pain and no palpitations Gastrointestinal: no abdominal pain, no nausea and no vomiting Physical Exam Physical Exam: General: +obese male in NAD Head: normocephalic, atraumatic Eyes: EOMI, PERRL, conjunctiva non-injected, anicteric ENT: normal inspection external ears, nose, mucous membranes moist Neck: supple, trachea midline Lungs: no respiratory distress, mild bibasilar crackles, no wheezing CV: RRR, 1+ pretibial edema RLE Abd: + obese, protuberant, normal BS, soft, no apparent tenderness to palpation Ext: LLE: BKA ambulation; no erythema, +venous stasis skin changes Neuro: Alert and oriented x3, no facial asymmetry, speech fluent, moves extremities Skin: warm, dry Results & Data Results & Data ([facility]) Vital Signs (Past 12 Hours) Vital Signs Pulse Resp BP Pulse Ox 11/25/20 07:42 89 15 142/100 H 98 11/25/20 06:39 76 16 146/92 H 99 11/25/20 06:23 84 17 146/114 H 96 11/25/20 05:43 70 17 206/138 H 99 11/25/20 04:43 90 13 182/140 H 96 11/25/20 03:43 92 H 12 215/140 H 98 11/25/20 02:43 82 17 154/102 H 96 11/25/20 01:43 83 18 158/100 H 93 11/25/20 00:43 88 15 152/88 H 96 11/24/20 23:43 93 H 14 114/72 97 Laboratory Results 11/25/20 11/25/20 11/25/20 Range/Units 07:31 05:01 05:01 WBC (4.8-10.8) K/uL RBC (4.7-6.1) M/uL Hgb (14.0-18.0) g/dL Hct (42-52) % MCV (80-100) fL MCH (25-34) pg MCHC (32-36) g/dL RDW Std Deviation (36.4-46.3) fL RDW Coeff of Madelyn (11.5-14.5) % Plt Count (130-400) K/uL MPV (7.4-10.4) fL Immature Gran % (Auto) % Neut % (Auto) % Lymph % (Auto) % [place] % (Auto) % Eos % (Auto) % Baso % (Auto) % Neut # (Auto) (1.4-6.5) K/uL Lymph # (Auto) (1.2-3.4) K/uL [place] # (Auto) (0.11-0.59) K/uL Eos # (Auto) (0-0.5) K/uL Baso # (Auto) (0-0.2) K/uL Immature Gran # (Auto) (0.00-0.02) K/uL VBG pH 7.44 H (7.36-7.41) VBG pCO2 45 (38-50) mmHg VBG pO2 42 mmHg VBG HCO3 30 mmol/L VBG O2 Saturation 80.8 % VBG Base Excess 4.9 mEq/L Barometric Pressure 736.2 mm/Hg Sodium 136 (136-145) mmol/L Potassium 4.1 (3.5-5.1) mmol/L Chloride 105 (98-107) mmol/L Carbon Dioxide 29 (21-32) mmol/L Anion Gap 2.0 L (3-11) BUN 36 H (7-18) mg/dl Creatinine 0.81 D (0.6-1.4) mg/dl Est Cr Clr Drug Dosing 120.0 ml/min Est GFR ( Amer) 108.9 ml/min Est GFR (Non-Af Amer) 93.9 ml/min BUN/Creatinine Ratio 44.8 H (10-20) Glucose 95 (70-99) mg/dl POC Glucose 159 H (70-99) mg/dl Calcium 9.4 (8.5-10.1) mg/dl Phosphorus 1.4 L* D (2.5-4.9) mg/dl Magnesium 2.1 (1.8-2.4) mg/dl Total Bilirubin 0.6 (0.2-1) mg/dl AST 34 (15-37) U/L ALT 30 (12-78) U/L Alkaline Phosphatase 106 (45-117) U/L Total Protein 7.3 (6.4-8.2) gm/dl Albumin 2.8 L (3.4-5.0) gm/dl Globulin 4.5 H (2.5-4.0) gm/dl Albumin/Globulin Ratio 0.6 L (0.9-2) 11/25/20 11/24/20 11/24/20 Range/Units 05:01 20:34 14:38 WBC 4.48 L (4.8-10.8) K/uL RBC 3.85 L (4.7-6.1) M/uL Hgb 11.3 L (14.0-18.0) g/dL Hct 34.4 L (42-52) % MCV 89.4 (80-100) fL MCH 29.4 (25-34) pg MCHC 32.8 (32-36) g/dL RDW Std Deviation 51.6 H (36.4-46.3) fL RDW Coeff of Madelyn 15.7 H (11.5-14.5) % Plt Count 125 L (130-400) K/uL MPV 11.1 H (7.4-10.4) fL Immature Gran % (Auto) 0.2 % Neut % (Auto) 57.7 % Lymph % (Auto) 25.4 % [place] % (Auto) 14.7 % Eos % (Auto) 2.0 % Baso % (Auto) 0.0 % Neut # (Auto) 2.58 (1.4-6.5) K/uL Lymph # (Auto) 1.14 L (1.2-3.4) K/uL [place] # (Auto) 0.66 H (0.11-0.59) K/uL Eos # (Auto) 0.09 (0-0.5) K/uL Baso # (Auto) 0.00 (0-0.2) K/uL Immature Gran # (Auto) 0.01 (0.00-0.02) K/uL VBG pH (7.36-7.41) VBG pCO2 (38-50) mmHg VBG pO2 mmHg VBG HCO3 mmol/L VBG O2 Saturation % VBG Base Excess mEq/L Barometric Pressure mm/Hg Sodium (136-145) mmol/L Potassium (3.5-5.1) mmol/L Chloride (98-107) mmol/L Carbon Dioxide (21-32) mmol/L Anion Gap (3-11) BUN (7-18) mg/dl Creatinine (0.6-1.4) mg/dl Est Cr Clr Drug Dosing ml/min Est GFR ( Amer) ml/min Est GFR (Non-Af Amer) ml/min BUN/Creatinine Ratio (10-20) Glucose (70-99) mg/dl POC Glucose 83 226 H (70-99) mg/dl Calcium (8.5-10.1) mg/dl Phosphorus (2.5-4.9) mg/dl Magnesium (1.8-2.4) mg/dl Total Bilirubin (0.2-1) mg/dl AST (15-37) U/L ALT (12-78) U/L Alkaline Phosphatase (45-117) U/L Total Protein (6.4-8.2) gm/dl Albumin (3.4-5.0) gm/dl Globulin (2.5-4.0) gm/dl Albumin/Globulin Ratio (0.9-2) (1) Acute respiratory failure Respiratory failure complication: unspecified whether with hypoxia or hypercapnia Qualified Code(s): J96.00 - Acute respiratory failure, unspecified whether with hypoxia or hypercapnia
[2020-11-25 21:38] LABS: Creatinine Urine Random 94.5 mg/dl; Protein Creatinine Ratio Urine 0.3 (0-0.2); Total Protein Urine Random 26.4 mg/dl (0-11.9)
[2020-11-26 07:40] LABS: Hematocrit (blood only) 33.1 % (42-52); Hemoglobin 10.7 g/dL (14.0-18.0); Mean Corpuscular Hgb Conc 32.3 g/dL (32-36); Mean Corpuscular Volume 89.7 fL (80-100); Mean Platelet Volume 11.5 fL (7.4-10.4); Platelet Count 111 K/uL (130-400); RDW Coefficient of Variation 15.5 % (11.5-14.5); RDW Standard Deviation 51.2 fL (36.4-46.3); Red Blood Count 3.69 M/uL (4.7-6.1)
[2020-11-26 08:10] LABS: Albumin Globulin Ratio 0.6 (0.9-2); Albumin Level 2.5 gm/dl (3.4-5.0); BUN Creatinine Ratio 30.1 (10-20); Bilirubin,Total 0.5 mg/dl (0.2-1); Creatinine Clr Calc Pharmacy 168.3 ml/min; Est GFR (African American) 124.9 ml/min; Est GFR (Non-African American) 107.7 ml/min; Globulin 4.3 gm/dl (2.5-4.0); Phosphorus 1.7 mg/dl (2.5-4.9); Total Protein 6.8 gm/dl (6.4-8.2)
[2020-11-26] MEDS: HEPARIN SOD 5,000 UNIT/0.5 ML VIAL SQ SCH (08:36)
[2020-11-26] MEDS: AZITHROMYCIN 250 MG TAB PO SCH (08:36)
[2020-11-26] MEDS: INSULIN GLARGINE SOLOSTAR 100 UNITS/ML 3 ML PEN SC SCH (08:37)
[2020-11-26] MEDS: amLODIPine BESYLATE 5 MG TAB PO SCH (08:37)
[2020-11-26] MEDS: INSULIN ASPART 100 UNITS/ML 3 ML PEN SC SCH ×2 (08:38→12:22)
[2020-11-26 08:42] LABS: Potassium 3.9 mmol/L (3.5-5.1)
[2020-11-26] MEDS: oxyCODONE HCL 15 MG TABCR (OxyCONTIN) PO SCH (08:42)
[2020-11-26] MEDS: PREGABALIN 75 MG CAP PO SCH ×2 (08:42→13:57)
[2020-11-26 08:47] LABS: Magnesium 1.8 mg/dl (1.8-2.4)
[2020-11-26] MEDS ORDERED: TAMSULOSIN HCL 0.4 MG CAP PO SCH (09:00)
[2020-11-26 09:37] LABS: Codeine Urine NEGATIVE ng/mL (<50); Hydrocodone Urine NEGATIVE ng/mL (<50); Hydromor Urine NEGATIVE ng/mL (<50); Morphine Urine NEGATIVE ng/mL (<50); Norhydrocodone Conf Ur NEGATIVE ng/mL (<50); Noroxycodone Urine >10000 ng/mL (<50); Oxycodone Urine >10000 ng/mL (<50); Oxymorph Urine 6260 ng/mL (<50)
[2020-11-26] MEDS ORDERED: POTASSIUM PHOS 3 MMOL/1 ML INFUSION IV STA (13:03)
[2020-11-26] MEDS ORDERED: POTASSIUM PHOSPHATE 9 MMOL in SODIUM CHLORIDE 0.9% 250 ML IV ONE (13:30)
--- NOTE | 2020-11-26 14:44 | Hospitalist Progress Note ---
Date of Service November 26, 2020 Assessment & Plan (1) Pneumonia: (2) Urinary retention: (3) Fluid overload: (4) Chronic narcotic use: (5) Obesity: Admission and Anticipated Discharge Date Admission Date: November 23, 2020 Results & Data Results & Data ([facility]) Vital Signs (Past 12 Hours) Vital Signs Temp Pulse Pulse Resp BP Pulse Ox 11/26/20 12:03 36.7 C 86 20 114/71 97 11/26/20 08:02 36.5 C 70 17 113/70 98 11/26/20 08:00 65 11/26/20 04:33 36.4 C L 66 16 117/68 98 Critical Care Time I have personally spent greater than 30 minutes of critical care time in the direct management of this patient. This includes bedside care, interpretation of diagnostic studies, and testing, discussion with consultants, patient, and family members, and other required patient management activities. This 30 minutes is in excess of all separately billable procedures.
--- NOTE | 2020-11-26 16:51 | Nephrology Progress Note ---
Date of Service November 26, 2020 Assessment & Plan (1) AARON (acute kidney injury): Plan: resolved. but now w/ 2 episodes of Stage 3 AARON in 3 mos , one in September and one here. one here d/t urinary retention; recovered quickly to baseline 0.6-0.8. care coordinated w/ Dr Maier and w/ pt and his -bmp weekly x 4 to be ordered by nephro at d/c -will arrange f/u in CKD clinic [facility] in 1-2 months -recommend OP urology eval for [place] mgt/voiding trial Admission and Anticipated Discharge Date Admission Date: November 23, 2020 Subjective continues to feel well; no sob; edema unchanged; renal function remains at baseline Review of Systems Review of Systems: 8 system review was unremarkable except per subjective and as below Physical Exam Constitutional: well developed, + morbidly obese and cooperative; no acute distress Eyes: EOM intact bilaterally ENMT: Ears: no external ear abnormality Nose: no external nose abnormality Mouth: + dry oral mucous membranes Neck: no nuchal rigidity Respiratory: normal respiratory effort and able to speak in complete sentences; no respiratory distress, no labored breathing and expiratory phase not prolonged Auscultation: lungs clear to auscultation bilaterally and + diminished lung sounds Cardiovascular: Rate/Rhythm: regular rate and regular rhythm Extremities: + edema (2+ RLE) Gastrointestinal (Abdomen): Inspection/Auscultation: normal bowel sounds; abdomen not distended Percussion/Palpation: abdomen soft; abdomen nontender and no guarding Musculoskeletal: Extremities: strength 5/5 throughout L AKA Skin: no rashes, warm and dry Neurologic: munoz, fluent speech, no tremor Psychiatric: Orientation: alert and oriented x 3 Speech: normal rate/rhythm/volume of speech Affect: + flat affect Results & Data ([facility]) Vital Signs (Past 12 Hours) Vital Signs Temp Pulse Pulse Resp BP Pulse Ox 11/26/20 16:15 36.7 C 86 20 114/71 97 11/26/20 12:03 36.7 C 86 20 114/71 97 11/26/20 08:02 36.5 C 70 17 113/70 98 11/26/20 08:00 65 Laboratory Results 11/26/20 07:18 11/26/20 08:15
--- NOTE | 2020-11-26 16:54 | Communication Note ---
Date of Service: November 26, 2020 did also discuss d/c bp meds w/ Dr Maier >> will send him out on no amlodipine and resume losartan 50 mg daily; he was on 100 mg daily ARB and 10 mg daily CCB at admission; bp has been well controlled on lower med doses in house; will reevaluate these meds at hospital f/u
--- NOTE | 2020-12-01 09:07 | Discharge Summary ---
Date of Service November 26, 2020 Admission HPI Per Admitting Provider Pt is 65 y/o M with PMH DM II, DM HTN, HLD, ENRIQUE previously noncompliant with CPAP, now on BiPAP at bedtime, Left BKA, phantom limb pain on chronic narcotic, Anxiety, depression, Charcot joint, obesity presented to ER for altered mental status. History mostly obtained from patient's secondary to patient's altered mental status. Patient with history hospitalization at [facility] 09/28/2020-10/02/2020 for acute hypercapnic respiratory failure in setting of excessive opiate use. Was treated with BiPAP and Narcan. During that hospitalization also had AARON (creatinine up to 2 with baseline creatitine of 0.6) and pneumonia. He was discharged on Triology and Omnicef. Later his oxycodone ER was reduced from 30 mg twice daily to 20 mg twice daily. Oxycodone was reduced from 15 mg every 6 hours as needed pain to 10 mg every 6 hours as needed pain Patient's states yesterday morning around 8:30 AM she checked on patient and he was wearing his BiPAP however she noted some condensation in facemask. She took facemask off and cleaned it. She noted that patient had altered mental status and was confused. This continued throughout the day and she has suggested that he go to the ER however he did not want to. reports she did not put patient's BiPAP on him last evening because she was afraid about the condensation. This morning when she woke up patient seemed increasingly confused and was having trouble arousing him. Patient was later brought to ER. She reports patient manages his own medications and she is unsure if patient took his medications or what medications he took today. Also reports that pt having difficulty urinating past couple of days. Today in ER it is reported patient was noted to be hypoxic at 89% on room air, afebrile, tachycardic at 106 and somnolent.ABG: pH: 7.2, PO2: 118, PCO2: 53, HCO3: 23. BUN: 62, CR: 3, chest x-ray question pneumonitis versus atelectasis right lower lobe, pulmonary vascular congestion In ER was ordered 1 L NSS, 1 hour albuterol neb, Lasix 40 mg IV, Zosyn, Levaquin. Patient was initially placed on BiPAP with O2 sat from 89 to 96% and reported to become a little more alert. Later in ER course 0.2 Narcan was given and reported patient became more awake. Patient went to CT and back to ER was not placed back on BiPAP initially. BiPAP will be replaced with repeat ABG in 30 minutes Bladder scan 500 mL. Patient unable to urinate. Will need to place catheter Admission Exam Per Admitting Provider General: +obese, currently awake but starts to fall asleep during conversation Head: normocephalic, atraumatic Eyes: pupils constricted, reactive, conjunctiva non-injected, anicteric ENT: normal inspection external ears, nose, mucous membranes moist Neck: supple, trachea midline Lungs: no respiratory distress, 96% on RA, coarse breath sounds CV: tachycardia, rate 106, 2+ pretibial edema RLE Abd: protuberant, normal BS, soft, no apparent tenderness to palpation Ext: LLE: BKA ambulation; no erythema, +venous stasis skin changes Neuro: Awake but drowsy, oriented to year, person, place Skin: warm, dry Principal Diagnosis Acute respiratory failure: Metabolic encephalopathy: AARON (acute kidney injury): Urinary retention: Pneumonia: ENRIQUE (obstructive sleep apnea): Chronic narcotic use: DMII (diabetes mellitus, type 2): HTN (hypertension): Obesity: Anxiety: Discharge Exam General: +obese male in NAD Head: normocephalic, atraumatic Eyes: EOMI, PERRL, conjunctiva non-injected, anicteric ENT: normal inspection external ears, nose, mucous membranes moist Neck: supple, trachea midline Lungs: no respiratory distress, mild bibasilar crackles, no wheezing CV: RRR, 1+ pretibial edema RLE Abd: + obese, protuberant, normal BS, soft, no apparent tenderness to palpation Ext: LLE: BKA ambulation; no erythema, +venous stasis skin changes Neuro: Alert and oriented x3, no facial asymmetry, speech fluent, moves extremities Skin: warm, dry Discharge Data Allergies Allergy/AdvReac Type Severity Reaction Status Date / Time ketorolac Allergy Unknown BURNING Verified 11/23/20 18:13 SENSATION tramadol Allergy Unknown GI UPSET Verified 11/23/20 18:13 ciprofloxacin [From Cipro] AdvReac Intermediate upset Verified 11/23/20 18:13 stomach Consultations 11/23/20 15:18 ED Decision to Admit Stat 11/23/20 20:14 Consult Rheumatology Nurse Routine Consult Nephrology Routine Ordered Studies 11/23/20 15:13 CT abd pelvis wo con Stat 11/23/20 15:45 CT head/brain wo con Stat 11/24/20 13:30 US renal/blad retro comp Routine XR chest 1V portable HISTORY: Abnormal chest CT. Follow-up. COMPARISON: Chest 11/24/2020. FINDINGS: Faint patchy bibasilar densities are again noted. There are low lung volumes. No pneumothorax. No pleural effusions. The heart is normal in size. No evidence for pulmonary edema. IMPRESSION: Faint patchy bibasilar densities are again noted. This could represent atelectasis or pneumonia. ACT 112: Negative or not required by law. Electronically signed by: Rojelio Meredith M.D. 11/25/2020 8:07 AM Dictated: 11/25/20 08Transcribed: 11/25/20805 RENAL ULTRASOUND CLINICAL HISTORY: Acute kidney injury. COMPARISON STUDY: CT of the abdomen and pelvis November 23, 2020. TECHNIQUE: Sonography of the kidneys and the urinary bladder was performed. FINDINGS: There is no hydronephrosis. The right kidney measures 12.9 cm in maximal dimension and the left measures 12.6 cm. No renal calculus or mass is identified. Bladder is decompressed, containing a Houston catheter. There is mild bilateral renal cortical thinning. IMPRESSION: No hydronephrosis. ACT 112: Negative or not required by law. Electronically signed by: Lm Colón M.D. 11/24/2020 8:23 PM Dictated: 11/24/202020Transcribed: 11/24/202020 XR chest 1V portable CLINICAL HISTORY: Abnormal chest x-ray. Follow-up study. COMPARISON STUDY: 11/23/2020 FINDINGS: The heart is normal in size. There is no failure. There is no focal pulmonary consolidation. There are no pleural effusions.[ IMPRESSION: No active disease in the chest. ACT 112: Negative or not required by law. Electronically signed by: Basilio Darnell M.D. 11/24/2020 7:45 AM Dictated: 11/24/2044Transcribed: 11/24/2044 CT head/brain wo con CLINICAL HISTORY: 65 years-old Male with AMS. Acutely altered mental status TECHNIQUE: Multiple axial CT images of the head were obtained without contrast. A dose lowering technique was utilized adhering to the principles of ALARA. COMPARISON: Head CT 12/12/2019 FINDINGS: No acute intracranial hemorrhage, midline shift, intracranial mass, hydrocephalus, territorial ischemia or abnormal extra-axial collection. Mild involutional changes. The calvarium is intact. The paranasal sinuses, mastoid air cells, and middle ear cavities are clear. IMPRESSION: No acute intracranial abnormality. ACT 112: Negative or not required by law. The above report was generated using voice recognition software. It may contain grammatical, syntax or spelling errors. Electronically signed by: Mak Robledo M.D. 11/23/2020 5:41 PM Dictated: 11/23/201738Transcribed: 11/23/201738 A[address]OM[address]VIS [address] WITHOUT CONTRAST CT DOSE: 2701.92 mGy.cm HISTORY: Acute renal failure Pt c/o ARF TECHNIQUE: Multiaxial CT images of the abdomen and pelvis were performed without contrast. A dose lowering technique was utilized adhering to the principles of ALARA. COMPARISON STUDY: CT abdomen and pelvis 08/03/2019 FINDINGS: Cardiomegaly. Coronary artery calcifications. Patchy consolidative bibasilar opacities, right greater than left. No pneumatosis or pneumoperitoneum. Spleen is enlarged measuring up to 17 cm in length. Limited evaluation of the solid abdominal organs without the use of IV contrast. Unremarkable pancreas, gallbladder and adrenal glands. Cirrhosis with hepatic st eatosis. Unremarkable kidneys. No hydronephrosis. Mild urinary bladder distention. Small fat filled right inguinal hernia. Atherosclerosis of the aorta without aneurysm. There is no adenopathy. Mild wall thickening of the distal esophagus which is fluid-filled. No bowel obstruction or bowel wall thickening. The appendix is not visualized. No secondary signs of acute appendicitis. No ascites or mesenteric inflammation. Small fat and fluid filled periumbilical hernia. Degenerative changes of the spine, pelvis and hips. Healed chronic right-sided rib fractures. No acute fracture identified. IMPRESSION: 1. No urolith or obstructive uropathy. 2. Bibasilar patchy consolidative opacities are suggestive of multifocal pneumonia. 3. Cirrhosis with hepatic steatosis. 4. Splenomegaly. 5. No bowel obstruction or bowel wall thickening. 6. Small fat and fluid filled periumbilical hernia. ACT 112: Negative or not required by law. The above report was generated using voice recognition software. It may contain grammatical, syntax or spelling errors. Electronically signed by: Mak Robledo M.D. 11/23/2020 5:54 PM Dictated: 11/23/201748Transcribed: 11/23/201748 XR chest 1V portable HISTORY: 65 years-old Male Chest Pain acute atypical chest pain COMPARISON: Chest radiograph 12/12/2019 TECHNIQUE: Portable AP view of the chest FINDINGS: Cardiac silhouette is upper limits of normal in size. Pulmonary vascular congestion. Mild interstitial coarsening of the lung right greater than left lung bases. No pneumothorax, pleural effusion or lobar airspace consolidation. Degenerative changes of the spine and left shoulder. IMPRESSION: 1. Cardiomegaly with pulmonary vascular congestion. 2. Mild asymmetric interstitial coarsening of the right lung base suggestive of atelectasis versus pneumonitis. ACT 112: Negative or not required by law. The above report was generated using voice recognition software. It may contain grammatical, syntax or spelling errors. Electronically signed by: Mak Robledo M.D. 11/23/2020 2:48 PM Dictated: 11/23/201446Transcribed: 11/23/201446 Hospital Course (1) Acute respiratory failure: (2) Pneumonia: (3) Metabolic encephalopathy: (4) AARON (acute kidney injury): (5) Urinary retention: (6) Fluid overload: (7) ENRIQUE (obstructive sleep apnea): (8) Chronic narcotic use: (9) DMII (diabetes mellitus, type 2): (10) HTN (hypertension): (11) Obesity: (12) Anxiety: Pt is 65 y/o M with PMH DM II, DM HTN, HLD, ENRIQUE previously noncompliant with CPAP, now on BiPAP at bedtime, Left BKA, phantom limb pain on chronic narcotic, Anxiety, depression, Charcot joint, obesity presented to ER for altered mental status since yesterday morning. Did not have Bipap on last night. H/O hospitalization for acute hypercapnic respiratory failure in setting of excessive opiate use. Was treated with BiPAP and Narcan, discharged on Triology His oxycodone ER was reduced from 30 mg twice daily to 20 mg twice daily. Oxycodone was reduced from 15 mg every 6 hours as needed pain to 10 mg every 6 hours as needed pain Today in ER it is reported patient was noted to be hypoxic at 89% on room air, afebrile, tachycardic at 106 and somnolent. ABG: pH: 7.26, PO2: 118, PCO2: 53, HCO3: 23. Lactate: 1.0, Procalcitonin: 0.17 CXR question pneumonitis versus atelectasis right lower lobe, pulmonary vascular congestion In ER was ordered 1 L NSS, 1 hour albuterol neb, Lasix 40 mg IV, Zosyn, Levaquin. Patient was initially placed on BiPAP with O2 sat from 89 to 96% and reported to become a little more alert. Later in ER course 0.2 Narcan was given and reported patient became more awake. Patient went to CT and back to ER was not placed back on BiPAP initially. BiPAP replaced with repeat ABG in 30 minutes improved with pH: 7.3, pCO2: 45, pO2: 128, HCO3: 21 Pt was given additional dose Narcan without much improvement Pt was admitted to ICU for further observation and treatment Continue Bipap Difficulties w/ BiPAP/trilogy, contacted that patient's trilogy shut off, will need to contact appropriate service to make sure that patient can be discharged safely with trilogy home Clinically much improved, now he is awake and able to answer questions appropriately (2) Pneumonia: recent pneumonia in 09/2020 during hospitalization at [facility] CT ABD/PELVIS: Bibasilar patchy consolidative opacities are suggestive of multifocal pneumonia. In ER given Zosyn, Levaquin Zosyn was discontinued and started on Zithromax (3) Metabolic encephalopathy: Probable secondary to opioid overuse, AARON, hypercapnia Pt probably not clearing opioids secondary to poor renal function Treatment as above Mental status now much improved, patient is able to answer questions appropriately Will reduce opioid dose to avoid any encephalopathy (4) AARON (acute kidney injury): BUN: 62, Cr: 3, GFR: 20. Baseline Cr: 0.6. (09/2020 hospitalization also had AARON with Cr up to 2) CT ABD/PELVIS: No urolith or obstructive uropathy. Possible secondary to urinary retention Avoid nephrotoxic agents when possible Nephrology consulted Creatinine is stable Check BMP in 1 week Follow up with nephrology (5) Urinary retention: Bladder scan 500 mL. Patient unable to urinate. Catheter placed in ER and 1300ml drained Case discussed with urology that recommended to discharge with the houston cath Follow up with urology in 1-2 weeks and will do voiding trial (6) Fluid overload: CXR: pulmonary vascular congestion In ER given lasix 40mg IV Stable (7) ENRIQUE (obstructive sleep apnea): Prior history non-compliance with CPAP. Recently started using Triology HS. [employer] will delivery the machine today for him to take it home (8) Chronic narcotic use Will change narcotic to Oxycodone 15mg BID Pt was advised to hold narotic if he develop any drowsy or lethargy (9) DMII (diabetes mellitus, type 2): Pharmacy on board for glycemic management Will resume home diabetes meds on discharge Continue monitor blood sugar (10) HTN (hypertension): Case discussed with Nephrology that recommended to discharge with Losartan 50mg daily Continue metoprolol 50mg daily Continue monitor BP (11) Obesity: (12) Anxiety: Full Code Total Time Total Time Spent Total Time Spent (In Minutes): 35 minutes Discharge Plan Discharge Items Patient Disposition: Home - Self-Care Reason For Visit: ACUTE RESPIRATORY FAILURE, ACIDOSIS Discharge Diagnosis: Acute respiratory failure: Metabolic encephalopathy: AARON (acute kidney injury): Urinary retention: Pneumonia: ENRIQUE (obstructive sleep apnea): Chronic narcotic use: DMII (diabetes mellitus, type 2): HTN (hypertension): Obesity: Anxiety: Activity: Resume your previous activity Non-emergency contact: Primary Care Provider Call non-emergency contact if: you have any medication questions Follow-up/Referrals: [facility] [Other] - 12/08/20 9:15 am Karlie Bates, [Primary Care Provider] - (Date & Time 12/03/2020 4:00 PM Provider Venessa Dickson PA-C Department [facility] ) Diet: Carb Consistent or DM2 Addtl Attending Provider Instructions: Follow up with primary care provider Venessa SHELLEY on (Dr. Bates Colleague) on 12/03/2020 4:00 PM at the [facility] Follow up with [facility] on 12/08/20 @ 9:15 AM Follow up with nephrology (office will call you for the appointment) Check BMP weekly for 3 weeks to monitor your electrolytes and creatinine Discharge home with the houston catheter. Keep follow catheter until seeing Urology Fall precaution Hold next dose of narcotic if you become drowsy or lethargy Oxycodone changed to 15mg twice a day (you already has the 10mg tablet, take 1.5 tablet twice a day; then discontinue the xycontin) Continue monitor your blood pressure Losartan decreased to 50mg daily (Ok to take half tablet) Amlodipine discontinued Pending Studies at Discharge: No Stand-Alone Forms: My [facility] [employer], Smoking Cessation Medications and DC Order Prescriptions: New azithromycin 250 mg Tablet 250 mg PO QAM Qty: 3 RF: 0 tamsulosin 0.4 mg Capsule 0.4 mg PO QAM Qty: 30 RF: 0 Continued metformin 500 mg tablet extended release 24 hr 1,000 mg PO BID RF: 0 ondansetron 4 mg tablet,disintegrating 4 mg translingual Q8 PRN (Reason: Nausea) RF: 0 Lantus Solostar U-100 Insulin 100 unit/mL (3 mL) Insulin Pen 20 unit SUBCUT DAILY RF: 0 metoprolol succinate 50 mg Tablet Extended Release 24 Hr 50 mg PO DAILY RF: 0 sertraline 100 mg tablet 100 mg PO DAILY RF: 0 pantoprazole 40 mg tablet,delayed release (DR/EC) 40 mg PO DAILY RF: 0 pregabalin 225 mg capsule 225 mg PO TID RF: 0 thiamine HCl (vitamin B1) [Vitamin B-1] 100 mg tablet 100 mg PO DAILY RF: 0 Changed losartan 100 mg Tablet 50 mg PO DAILY Qty: 30 RF: 0 oxycodone 10 mg tablet 15 mg PO Q12H Qty: 0 RF: 0 Discontinued amlodipine 10 mg tablet 10 mg PO DAILY RF: 0 oxycodone [OxyContin] 20 mg tablet,oral only,ext.rel.12 hr 20 mg PO DAILY RF: 0 Discharge Orders: Discharge Order (Routine); Ordered 11/26/20 Ordered By: Irasema Maier Admission Data Admit Date/Time: 11/23/20 18:36 Attending Provider: Irasema Maier Admit Provider: Jaren Da Silva Primary Care Provider: Keiter,Ziegler K. Other Providers: Karina Lees ; Arsalan Escobar ; Jennifer Kohli ; Jaren Da Silva Other Interventions: Discharge Summary Assessment (RN) Last Done: 11/26/20 16:15
--- NOTE | 2020-12-08 09:03 | Coding Query ---
CODING QUERY To promote full compliance with coding requirements relating to patient care, provider participation is requested in all cases of freedom of information officer uncertainty. Please assist us with the question(s) below: Coding Question(s): Pt admitted with acute respiratory failure . Progress notes document pneumonia, initially started on Zosyn, then changed to Zitromycin.11/24 note stated low suspicion for pneumonia. Please check the phrase below that applies to the pneumonia. Thanks for your help. Kevin Darnell [facility] Physician's Response(s): Patient was treated for pneumonia during this Inpatient stay. Patient does not have pneumonia Cannot clinically correlate if pneumonia was treated. ____x____ Other: Please document: ___Possible Pneumonia Principal Diagnosis: "that condition established after study, to be chiefly responsible for occasioning the admission of the patient to the hospital for care." Co-Existing Principal Diagnosis: "when two or more diagnoses equally meet the criteria for principal diagnosis as determined by the circumstances of admission, diagnostic work up, and/or therapy provided, and the Alphabetic Index, Tabular List, or another coding guideline does not provide sequencing direction, any one of the diagnoses may be sequenced first." "When the physician has documented what appears to be a current diagnosis in the body of the record, but has not included the diagnosis in the final diagnostic statement, the physician should be asked whether the diagnosis should be added." (Source Coding [facility] 2 QTR90. p3-4) JESSIKA
--- NOTE | 2020-12-08 09:06 | Coding Query ---
CODING QUERY To promote full compliance with coding requirements relating to patient care, provider participation is requested in all cases of consular officer uncertainty. Please assist us with the question(s) below: Coding Question(s): Patient admitted with acute respiratory failure. 11/24 progress note documents acute respiratory failure possibly due to opiate overuse. Please document, if known or suspected, the etiology of the respiratory failure. Thanks for your help! Kevin Darnell [facility] Physician's Response(s): Possible related to Opiate overuse Principal Diagnosis: "that condition established after study, to be chiefly responsible for occasioning the admission of the patient to the hospital for care." Co-Existing Principal Diagnosis: "when two or more diagnoses equally meet the criteria for principal diagnosis as determined by the circumstances of admission, diagnostic work up, and/or therapy provided, and the Alphabetic Index, Tabular List, or another coding guideline does not provide sequencing direction, any one of the diagnoses may be sequenced first." "When the physician has documented what appears to be a current diagnosis in the body of the record, but has not included the diagnosis in the final diagnostic statement, the physician should be asked whether the diagnosis should be added." (Source Coding Clinic 2 QTR90. p3-4) JESSIKA
== END 2020-11-26 19:15 | disposition home or self-care (01) | DRG 917 ==
LOC: ED 13:52 → SUATTDRO 18:36 → 1E 18:36 → 2S 11-25 11:00

== ENCOUNTER 2021-05-07 02:36 | Inpatient (IN) ==
[2021-05-07] MEDS ORDERED: STAT IV Infusion **Titration per Protocol STA ×3 (02:48→08:36)
[2021-05-07] MEDS ORDERED: PROPOFOL BOLUS FROM BAG IV PRN (02:48)
[2021-05-07] MEDS ORDERED: SODIUM CHLORIDE 0.9% 1000ML 1,000 ML IV ONE ×4 (02:48→06:30)
--- NOTE | 2021-05-07 02:55 | Emergency Department Note ---
Impression & Plan Acute respiratory failure, Metabolic acidosis, Acute renal failure, Acute hypotension ED Provider Note Name: MOOSE ANN Age: 65 Sex: M Arrives Via: Ambulance Informant: , Daughter, EMS ED Provider: Aleks Palacios MD Chief Complaint: AMS Impression: As per impressions above Medical Decision Makin-year-old gentleman arrives from home via EMS. He reportedly he has been shaky for quite some time and not using any positive pressure for his ENRIQUE at night recently. He furthermore ran out of his pain meds for 4 to 5 days and then refill them 2 days ago. notes that around 6 PM patient seems somnolent with sleeping on the bed and over the next 6 to 9 hours he was noted to be obtunded. When checking on him and noting how cold he was she called 911. EMS notes patient with agonal respirations and oxygen in the 50s thus he was intubated without medication and taken to ER. On arrival he is moving his extremities weakly and this clearly confused not following commands. He was given light sedation with fentanyl followed by propofol. He is quite hypotensive which after 3 L of fluid did not come up thus was given Levophed. Extensive laboratory work-up obtained unfortunately the first labs were contaminated by saline and a redraw was necessary. Respiratory ABG reveals severe acidosis with moderate hypercapnia. POC BMP revealed acute renal failure though K was only mildly elevated. Hemoglobin stable on ABG and POC BMP. I pao l further note the patient was quite hypothermic on arrival and was given warm blankets and bear hugger. After some time blood pressures began trending back up. He did receive a CT head chest abdomen/pelvis, these were Noncon as patient acute renal failure. Labs that are returning and white count was noted to be elevated along with lactic acidosis and in the setting of unclear etiology of all this was indicated to start antibiotics. In the setting of hypoxia and respiratory failure covering lung was indicated thus Zosyn and vancomycin were ordered as one-time doses. Blood cultures were obtained prior to antibiotics beginning. I am not convinced that this is sepsis however I am treating as it is clearly indicated. There is somewhat suspect that patient has been in worsening renal insufficiency/failure recently and compounding not using his positive pressure ventilation at night and then adding in large amounts of narcotics led to this current situation. I do not see any clear ACS as the cause and ruling out PE is impossible given his renal failure. That said there is not much difficulty oxygenating the patient and he is not significantly tachycardic. Given the renal failure with moderate hyperkalemia he was given bicarb x2 insulin 10 units IV and an amp of dextrose. Kayexalate was ordered however he had not yet gotten OG tube. I am quite concerned about this persistent hypotension in the setting of severe acidosis and renal failure. There is a concern that this patient will eventually need dialysis or even CRRT. However given the acuity of the situation and the need for further work-up starting dialysis would not be indicated at this point especially given his potassium is for now not severely elevated. Review of extensive charts reveals that this is occurred multiple times previously though not to this degree. Both over the summer and over the spring patient had severe respiratory depression with acidosis and acute kidney injury all of which felt due to overmedication without other clear findings reported. While awaiting transfer to ICU it was noted patient's blood pressure starts dropping and likely will need further medications. I discussed this with ICU and they agreed that attempting to get a line earlier in the ER would be reasonable. After prolonged discussion with daughter and they verbally give consent for central line. I attempted numerous times to place a right femoral line under ultrasound guidance but was unsuccessful. Given the possible need for central line in the neck and even possibly further dialysis line ICU was rediscussed and they will attempt to place in the ICU and he was immediately transferred to ICU. Prior Medical Record and Triage/Nursing Notes reviewed by Me Additional history obtained from chart, , daughter Differentials:Infection, hypoglycemia, electrolyte abnormalities, overdose, toxicologic, cardiac sources, intracerebral event, neurologic, trauma, as well as other pathologies. Vital Signs: reviewed and remarkable for hypotensive, hypoxic, hypothermic Interventions: Saline lock normal saline bolus 30 mL/kg, propofol IV Levophed IV, Zosyn IV, vancomycin IV, insulin 10 units IV, dextrose 50 mg IV, bicarb 2 A IV Given the patients BMI >30, IBW was used to calculate the 30ml/kg fluid bolus. IBW 80.9 kg x 30ml = ~2.5L. Patient was given total 4 L NSS bolus given repeat exam revealed persistent hypotension. Labs:Reviewed and remarkable for extensive lab abnormalities. Elevated WBC, acidosis, creatinine elevation amongst others Imagin view chest x-ray reviewed by me reveals ET tube in place with bilateral infiltrates versus hypoventilation EKG:Per My Interpretation: Indication AMS: NSR 97 bpm, qtc 518. No Ectopy. No Ischemia. No previous available for evaluation. Patient does have some ST depressions nonspecific in the lateral leads. Cardiac/Tele Monitoring: Cardiac Monitoring: An Order was placed for continuous cardiac monitoring. The monitor shows a rate of 90 with a normal sinus rhythm. Consults:Salo ROUSE of critical care medicine. Dr. Cynthia Childs hospitalist Plan: Disposition:Hospitalization. Condition: Poor-Critical History of Present Illness:65-year-old gentleman arrives from home for evaluation of AMS. Per patient has been altered and minimally responsive since around 6 PM (~ 9 hours prior to arrival). She states he is just been laying in his bed sleeping. When she checked on him she realized he was cold and using his abdomen to breathe. She notes that for the last few days he has been complaining of his right leg hurting more than usual which was attributed to running out of his pain meds for several days over the weekend and then he got those back on Tuesday 3 days ago. He was walking around [facility] for several hours yesterday as well. notes that he did drink some beer this afternoon but does not think that he even finished it. She does not feel that he was taking too much of his pain medications or more than he should have. She states that because he was altered she called 911. On arrival EMS noted the patient was in agonal respirations and had an O2 sat of 50%. He was urgently intubated without medication or any difficulty. Oxygen came up quickly with bagging and he was taken to the ER for further evaluation. EMS notes he is started to wake up slightly while in route. denies any concerns for suicide homicidal ideation. Furthermore notes that for the last week or 2 he has been quite shaky and just does not seem to himself. She also notes that his trilogy had been working nor has he been using BiPAP at night. ROS: Patient obtunded and unable to obtain Past Medical History:Type 2 diabetes, hypertension, dyslipidemia, obstructive sleep apnea, chronic pain, chronic narcotic use, anxiety, depression, obesity Past Surgical History:Left leg amputation Family History:Unable to obtain due to AMS Social History:Lives with , further information unable to obtain Home Medications:OxyIR, oxycodone, gabapentin, Flomax, Metformin, Zofran, Lantus, metoprolol, sertraline, pantoprazole, thiamine, losartan, Allergies:No reported allergies Vitals:Blood Pressure: 94/33, Pulse 98, RR 16, T 34.2C, O2 98% on RA Physical Exam: GENERAL: Patient is chronically unwell appearing and obtunded. intubated. HEAD: AT/NC EYES: No scleral icterus, unremarkable pupils. ENT: Mucous membranes moist, no nasal congestion. NECK: No masses appreciated, nomeningismus, trachea is midline. RESPIRATORY: Clear to auscultation and equal bilaterally. No wheeze, no rhonchi. CARDIOVASCULAR: Regular rate and rhythm.No murmurs, rubs, gallops appreciated. GASTROINTESTINAL: Abdomen soft, non-tender, no peritonitis.Bowel sounds positive.No masses appreciated. BACK: No midline tenderness, no CVA tenderness EXTREMITIES: Very cool extremities with some mottling and cyanosis, no edema. Left leg prosthesis noted NEUROLOGIC: Obtunded periodically opening eyes and looking around room without focusing. Weakly moves arms and legs. SKIN: No rash, no jaundice, no diaphoresis. GCS 5T ED Course: Times/Reassessments: Extensive bedside management of patient throughout the several hours he was in the ER. Critical Care: I have personally spent 125 minutes of critical care time in the direct management of this patient. 65-year-old gentleman with acute respiratory failure in the setting of severe hypotension, severe acidosis, acute renal failure. This was a life/limb threatening event. This 125 minutes is in excess of all separately billable procedures. Aleks Palacios MD Past Med/Surg History Social History Smoking Status: Unknown if ever smoked Feels Safe at Home: Yes Results & Data (ED) Vital Signs Vital Signs - 24 hr 05/07/21 02:46 05/07/21 03:00 05/07/21 03:01 Temperature 34.2 C L 34.2 C L Temperature Source Rectal Rectal Pulse Rate 96 H Pulse Rate [Apical] 98 H Pulse Rhythm Regular Pulse Rhythm [Apical] Regular Pulse Strength Normal Pulse Strength [Apical] Normal Respiratory Rate 18 16 Respiratory Effort / Characteristics Mechanically Ventilated Mechanically Ventilated Respiratory Depth Normal Normal Respiratory Pattern Regular Regular Blood Pressure 94/33 L Blood Pressure [Right Arm] 94/33 L Blood Pressure Mean 53 Blood Pressure Mean [Right Arm] 53 Blood Pressure Position Lying Blood Pressure Position [Right Arm] Lying Pulse Oximetry 99 98 98 Oxygen Delivery Method Mechanical Vent Mechanical Vent Mechanical Vent Fraction of Inspired Oxygen 50 Sepsis Recent Fever Within 48 Hours No Sepsis New/Unexplained Change in Mental Status Yes Sepsis Action Taken by Nursing Physician Notified End-Tidal CO2 05/07/21 03:22 05/07/21 04:49 05/07/21 05:14 Temperature Temperature Source Pulse Rate 91 H 94 H Pulse Rate [Apical] 89 Pulse Rhythm Pulse Rhythm [Apical] Regular Pulse Strength Pulse Strength [Apical] Normal Respiratory Rate 25 H 18 20 Respiratory Effort / Characteristics Mechanically Ventilated Respiratory Depth Normal Respiratory Pattern Regular Blood Pressure Blood Pressure [Right Arm] 62/40 L Blood Pressure Mean Blood Pressure Mean [Right Arm] 47 Blood Pressure Position Blood Pressure Position [Right Arm] Lying Pulse Oximetry 92 92 94 Oxygen Delivery Method Mechanical Vent Fraction of Inspired Oxygen 50 80 Sepsis Recent Fever Within 48 Hours Sepsis New/Unexplained Change in Mental Status Sepsis Action Taken by Nursing End-Tidal CO2 41 4 05/07/21 05:43 05/07/21 07:11 05/07/21 07:17 Temperature Temperature Source Pulse Rate 98 H Pulse Rate [Apical] 91 H 98 H Pulse Rhythm Pulse Rhythm [Apical] Regular Regular Pulse Strength Pulse Strength [Apical] Normal Normal Respiratory Rate 18 18 18 Respiratory Effort / Characteristics Mechanically Ventilated Mechanically Ventilated Respiratory Depth Normal Normal Respiratory Pattern Regular Regular Blood Pressure 99/61 L Blood Pressure [Right Arm] 94/59 L 99/61 L Blood Pressure Mean Blood Pressure Mean [Right Arm] 70 73 Blood Pressure Position Blood Pressure Position [Right Arm] Lying Lying Pulse Oximetry 97 98 98 Oxygen Delivery Method Mechanical Vent Mechanical Vent Mechanical Vent Fraction of Inspired Oxygen 80 Sepsis Recent Fever Within 48 Hours Sepsis New/Unexplained Change in Mental Status Sepsis Action Taken by Nursing End-Tidal CO2 Laboratory Data Result diagrams: 05/07/21 04:04 05/07/21 04:04 Lab Results 05/07/21 05/07/21 05/07/21 Range/Units 03:10 03:10 03:15 WBC 5.59 (4.8-10.8) K/uL RBC 1.26 L (4.7-6.1) M/uL Hgb 3.8 L* (14.0-18.0) g/dL POC Hgb (14.0-18.0) g/dl Hct 12.6 L* (42-52) % POC Hct (42-52) % MCV 100.0 (80-100) fL MCH 30.2 (25-34) pg MCHC 30.2 L (32-36) g/dL RDW Std Deviation 64.9 H (36.4-46.3) fL RDW Coeff of Madelyn 17.5 H (11.5-14.5) % Plt Count 113 L (130-400) K/uL MPV 10.2 (7.4-10.4) fL Immature Gran % (Auto) 1.1 % Neut % (Auto) 91.2 % Lymph % (Auto) 3.4 % [place] % (Auto) 4.3 % Eos % (Auto) 0.0 % Baso % (Auto) 0.0 % Neut # (Auto) 5.10 (1.4-6.5) K/uL Lymph # (Auto) 0.19 L (1.2-3.4) K/uL [place] # (Auto) 0.24 (0.11-0.59) K/uL Eos # (Auto) 0.00 (0-0.5) K/uL Baso # (Auto) 0.00 (0-0.2) K/uL Immature Gran # (Auto) 0.06 H (0.00-0.02) K/uL Absolute Nucleated RBC 0.04 H (0-0) K/uL Nucleated RBC % (auto) 0.7 % Polychromasia Echinocytes 1+ PT INR D-Dimer ABG pH (7.35-7.45) ABG pCO2 (35-46) mmHg ABG pO2 (80-95) mmHg ABG HCO3 (19-24) mmol/L ABG O2 Saturation (90-95) % ABG Base Excess (-9-1.8) mEq/L Frank Test (Pos) Oxygen Given POC Sodium (135-144) mmol/L Sodium POC Potassium (3.3-5.0) mmol/L Potassium POC Chloride (101-112) mmol/L Chloride Carbon Dioxide POC Total CO2 (24-31) mmol/L Anion Gap POC Anion Gap (16-25) mmol/L POC BUN (7-18) mg/dl BUN Creatinine POC Creatinine (0.6-1.3) mg/dl Est Cr Clr Drug Dosing Est GFR ( Amer) Est GFR (Non-Af Amer) BUN/Creatinine Ratio Glucose POC Glucose (70-99) mg/dl POC Glucose (other) (70-99) mg/dl Lactate (0.4-2.0) mmol/L Calcium POC Ioniz Calcium Taniya (1.12-1.32) mmol/l Magnesium Total Bilirubin Direct Bilirubin AST ALT Alkaline Phosphatase Total Creatine Kinase Troponin I C-Reactive Protein Total Protein Albumin Lipase Procalcitonin (0-0.5) ng/ml Urine Color Dark Yellow Urine Appearance Cloudy A (Clear) Urine pH 5.0 (4.5-7.5) Ur Specific Riga 1.023 (1.000-1.030) Urine Protein 3+ H (Negative) Urine Glucose (UA) Trace H (Negative) Urine Ketones Trace H (Negative) Urine Blood 1+ H (Negative) Urine Nitrite Negative (Negative) Urine Bilirubin 1+ H (Negative) Urine Urobilinogen Negative (Negative) Ur Leukocyte Esterase Trace H (Negative) Urine WBC (Auto) 5-10 H (0-5) /hpf Urine RBC (Auto) 0-4 (0-4) /hpf U Hyaline Cast (Auto) 1-5 (0-5) /lpf U Epithel Cells (Auto) >30 H (0-5) /lpf Urine Bacteria (Auto) 2+ H (Negative) Calcium Oxalate Crystal Present A (None Prsent) Urine Yeast Not Reportable Stl C. cayetanensis PCR (NotDetected) Stool Rotavirus A PCR (NotDetected) Stl Adenov F 40/41 PCR (NotDetected) Stool Astrovirus (PCR) (NotDetected) Stool Campylobacter PCR (NotDetected) Stl C. diff Tox A/B PCR (NotDetected) Stool Cryptosporidium PCR (NotDetected) Stl E.coli Shiga Tox PCR (NotDetected) Stl Enterotoxigenic E PCR (NotDetected) Stool EPEC (PCR) (NotDetected) Stool EAEC (PCR) (NotDetected) Stl E. histolytica PCR (NotDetected) Stool Giardia Lamblia PCR (NotDetected) Stool Salmonella PCR (NotDetected) Stool Sapovirus (PCR) (NotDetected) Stl P. shigelloides PCR (NotDetected) Stl Shigella/EIEC PCR (NotDetected) St Y.enterocolitica PCR (NotDetected) Stool Vibrio (PCR) (NotDetected) Stl Vibrio cholerae PCR (NotDetected) Stl Norovirus GI/GII PCR (NotDetected) Salicylates (2.8-20) mg/dl Urine Opiates Screen Pos H (Neg) Ur Methadone, Qual Neg (Neg) Acetaminophen (10-30) ug/ml Urine Barbiturates Neg (Neg) Ur Phencyclidine (PCP) Neg (Neg) U Amphetamin/Meth Scrn Neg (Neg) MDMA (Ecstasy) Screen Neg (Neg) U Benzodiazepines Scrn Neg (Neg) Ur Cocaine Metabolite Neg (Neg) U Marijuana (THC) Screen Pos H (Neg) Ethyl Alcohol mg/dL (0-3) mg/dl Adenovirus (PCR) (NotDetected) B. pertussis DNA (PCR) (NotDetected) B.parapertussis DNA PCR (NotDetected) C. pneumoniae DNA (PCR) (NotDetected) Coronavirus OC43 (PCR) (NotDetected) Coronavirus HKU1 (PCR) (NotDetected) Coronavirus 229E (PCR) (NotDetected) SARS-CoV-2 (PCR) (NotDetected) Coronavirus NL63 (PCR) (NotDetected) Human Metapneumovir PCR (NotDetected) Influenza Type A (PCR) (NotDetected) Influenza Type B (PCR) (NotDetected) M. pneumoniae (PCR) (NotDetected) Parainfluenza 1 (PCR) (NotDetected) Parainfluenza 2 (PCR) (NotDetected) Parainfluenza 3 (PCR) (NotDetected) Parainfluenza 4 (PCR) (NotDetected) RSV (PCR) (NotDetected) Entero/Rhino (PCR) (NotDetected) 05/07/21 05/07/21 05/07/21 Range/Units 03:15 03:15 03:15 WBC (4.8-10.8) K/uL RBC (4.7-6.1) M/uL Hgb (14.0-18.0) g/dL POC Hgb (14.0-18.0) g/dl Hct (42-52) % POC Hct (42-52) % MCV (80-100) fL MCH (25-34) pg MCHC (32-36) g/dL RDW Std Deviation (36.4-46.3) fL RDW Coeff of Madelyn (11.5-14.5) % Plt Count (130-400) K/uL MPV (7.4-10.4) fL Immature Gran % (Auto) % Neut % (Auto) % Lymph % (Auto) % [place] % (Auto) % Eos % (Auto) % Baso % (Auto) % Neut # (Auto) (1.4-6.5) K/uL Lymph # (Auto) (1.2-3.4) K/uL [place] # (Auto) (0.11-0.59) K/uL Eos # (Auto) (0-0.5) K/uL Baso # (Auto) (0-0.2) K/uL Immature Gran # (Auto) (0.00-0.02) K/uL Absolute Nucleated RBC (0-0) K/uL Nucleated RBC % (auto) % Polychromasia Echinocytes PT Cancelled INR Cancelled D-Dimer Cancelled ABG pH (7.35-7.45) ABG pCO2 (35-46) mmHg ABG pO2 (80-95) mmHg ABG HCO3 (19-24) mmol/L ABG O2 Saturation (90-95) % ABG Base Excess (-9-1.8) mEq/L Frank Test (Pos) Oxygen Given POC Sodium (135-144) mmol/L Sodium Cancelled POC Potassium (3.3-5.0) mmol/L Potassium Cancelled POC Chloride (101-112) mmol/L Chloride Cancelled Carbon Dioxide Cancelled POC Total CO2 (24-31) mmol/L Anion Gap Cancelled POC Anion Gap (16-25) mmol/L POC BUN (7-18) mg/dl BUN Cancelled Creatinine Cancelled POC Creatinine (0.6-1.3) mg/dl Est Cr Clr Drug Dosing Cancelled Est GFR ( Amer) Cancelled Est GFR (Non-Af Amer) Cancelled BUN/Creatinine Ratio Cancelled Glucose Cancelled POC Glucose (70-99) mg/dl POC Glucose (other) (70-99) mg/dl Lactate (0.4-2.0) mmol/L Calcium Cancelled POC Ioniz Calcium Taniya (1.12-1.32) mmol/l Magnesium Cancelled Total Bilirubin Cancelled Direct Bilirubin Cancelled AST Cancelled ALT Cancelled Alkaline Phosphatase Cancelled Total Creatine Kinase Cancelled Troponin I Cancelled C-Reactive Protein Cancelled Total Protein Cancelled Albumin Cancelled Lipase Cancelled Procalcitonin (0-0.5) ng/ml Urine Color Urine Appearance (Clear) Urine pH (4.5-7.5) Ur Specific Riga (1.000-1.030) Urine Protein (Negative) Urine Glucose (UA) (Negative) Urine Ketones (Negative) Urine Blood (Negative) Urine Nitrite (Negative) Urine Bilirubin (Negative) Urine Urobilinogen (Negative) Ur Leukocyte Esterase (Negative) Urine WBC (Auto) (0-5) /hpf Urine RBC (Auto) (0-4) /hpf U Hyaline Cast (Auto) (0-5) /lpf U Epithel Cells (Auto) (0-5) /lpf Urine Bacteria (Auto) (Negative) Calcium Oxalate Crystal (None Prsent) Urine Yeast Stl C. cayetanensis PCR (NotDetected) Stool Rotavirus A PCR (NotDetected) Stl Adenov F 40/41 PCR (NotDetected) Stool Astrovirus (PCR) (NotDetected) Stool Campylobacter PCR (NotDetected) Stl C. diff Tox A/B PCR (NotDetected) Stool Cryptosporidium PCR (NotDetected) Stl E.coli Shiga Tox PCR (NotDetected) Stl Enterotoxigenic E PCR (NotDetected) Stool EPEC (PCR) (NotDetected) Stool EAEC (PCR) (NotDetected) Stl E. histolytica PCR (NotDetected) Stool Giardia Lamblia PCR (NotDetected) Stool Salmonella PCR (NotDetected) Stool Sapovirus (PCR) (NotDetected) Stl P. shigelloides PCR (NotDetected) Stl Shigella/EIEC PCR (NotDetected) St Y.enterocolitica PCR (NotDetected) Stool Vibrio (PCR) (NotDetected) Stl Vibrio cholerae PCR (NotDetected) Stl Norovirus GI/GII PCR (NotDetected) Salicylates (2.8-20) mg/dl Urine Opiates Screen (Neg) Ur Methadone, Qual (Neg) Acetaminophen (10-30) ug/ml Urine Barbiturates (Neg) Ur Phencyclidine (PCP) (Neg) U Amphetamin/Meth Scrn (Neg) MDMA (Ecstasy) Screen (Neg) U Benzodiazepines Scrn (Neg) Ur Cocaine Metabolite (Neg) U Marijuana (THC) Screen (Neg) Ethyl Alcohol mg/dL < 3.0 (0-3) mg/dl Adenovirus (PCR) (NotDetected) B. pertussis DNA (PCR) (NotDetected) B.parapertussis DNA PCR (NotDetected) C. pneumoniae DNA (PCR) (NotDetected) Coronavirus OC43 (PCR) (NotDetected) Coronavirus HKU1 (PCR) (NotDetected) Coronavirus 229E (PCR) (NotDetected) SARS-CoV-2 (PCR) (NotDetected) Coronavirus NL63 (PCR) (NotDetected) Human Metapneumovir PCR (NotDetected) Influenza Type A (PCR) (NotDetected) Influenza Type B (PCR) (NotDetected) M. pneumoniae (PCR) (NotDetected) Parainfluenza 1 (PCR) (NotDetected) Parainfluenza 2 (PCR) (NotDetected) Parainfluenza 3 (PCR) (NotDetected) Parainfluenza 4 (PCR) (NotDetected) RSV (PCR) (NotDetected) Entero/Rhino (PCR) (NotDetected) 05/07/21 05/07/21 05/07/21 Range/Units 03:15 03:18 03:26 WBC (4.8-10.8) K/uL RBC (4.7-6.1) M/uL Hgb (14.0-18.0) g/dL POC Hgb (14.0-18.0) g/dl Hct (42-52) % POC Hct (42-52) % MCV (80-100) fL MCH (25-34) pg MCHC (32-36) g/dL RDW Std Deviation (36.4-46.3) fL RDW Coeff of Madelyn (11.5-14.5) % Plt Count (130-400) K/uL MPV (7.4-10.4) fL Immature Gran % (Auto) % Neut % (Auto) % Lymph % (Auto) % [place] % (Auto) % Eos % (Auto) % Baso % (Auto) % Neut # (Auto) (1.4-6.5) K/uL Lymph # (Auto) (1.2-3.4) K/uL [place] # (Auto) (0.11-0.59) K/uL Eos # (Auto) (0-0.5) K/uL Baso # (Auto) (0-0.2) K/uL Immature Gran # (Auto) (0.00-0.02) K/uL Absolute Nucleated RBC (0-0) K/uL Nucleated RBC % (auto) % Polychromasia Echinocytes PT INR D-Dimer ABG pH (7.35-7.45) ABG pCO2 (35-46) mmHg ABG pO2 (80-95) mmHg ABG HCO3 (19-24) mmol/L ABG O2 Saturation (90-95) % ABG Base Excess (-9-1.8) mEq/L Frank Test (Pos) Oxygen Given POC Sodium (135-144) mmol/L Sodium POC Potassium (3.3-5.0) mmol/L Potassium POC Chloride (101-112) mmol/L Chloride Carbon Dioxide POC Total CO2 (24-31) mmol/L Anion Gap POC Anion Gap (16-25) mmol/L POC BUN (7-18) mg/dl BUN Creatinine POC Creatinine (0.6-1.3) mg/dl Est Cr Clr Drug Dosing Est GFR ( Amer) Est GFR (Non-Af Amer) BUN/Creatinine Ratio Glucose POC Glucose (70-99) mg/dl POC Glucose (other) (70-99) mg/dl Lactate 2.4 H* (0.4-2.0) mmol/L Calcium POC Ioniz Calcium Taniya (1.12-1.32) mmol/l Magnesium Total Bilirubin Direct Bilirubin AST ALT Alkaline Phosphatase Total Creatine Kinase Troponin I C-Reactive Protein Total Protein Albumin Lipase Procalcitonin 0.13 (0-0.5) ng/ml Urine Color Urine Appearance (Clear) Urine pH (4.5-7.5) Ur Specific Riga (1.000-1.030) Urine Protein (Negative) Urine Glucose (UA) (Negative) Urine Ketones (Negative) Urine Blood (Negative) Urine Nitrite (Negative) Urine Bilirubin (Negative) Urine Urobilinogen (Negative) Ur Leukocyte Esterase (Negative) Urine WBC (Auto) (0-5) /hpf Urine RBC (Auto) (0-4) /hpf U Hyaline Cast (Auto) (0-5) /lpf U Epithel Cells (Auto) (0-5) /lpf Urine Bacteria (Auto) (Negative) Calcium Oxalate Crystal (None Prsent) Urine Yeast Stl C. cayetanensis PCR (NotDetected) Stool Rotavirus A PCR (NotDetected) Stl Adenov F 40/41 PCR (NotDetected) Stool Astrovirus (PCR) (NotDetected) Stool Campylobacter PCR (NotDetected) Stl C. diff Tox A/B PCR (NotDetected) Stool Cryptosporidium PCR (NotDetected) Stl E.coli Shiga Tox PCR (NotDetected) Stl Enterotoxigenic E PCR (NotDetected) Stool EPEC (PCR) (NotDetected) Stool EAEC (PCR) (NotDetected) Stl E. histolytica PCR (NotDetected) Stool Giardia Lamblia PCR (NotDetected) Stool Salmonella PCR (NotDetected) Stool Sapovirus (PCR) (NotDetected) Stl P. shigelloides PCR (NotDetected) Stl Shigella/EIEC PCR (NotDetected) St Y.enterocolitica PCR (NotDetected) Stool Vibrio (PCR) (NotDetected) Stl Vibrio cholerae PCR (NotDetected) Stl Norovirus GI/GII PCR (NotDetected) Salicylates (2.8-20) mg/dl Urine Opiates Screen (Neg) Ur Methadone, Qual (Neg) Acetaminophen (10-30) ug/ml Urine Barbiturates (Neg) Ur Phencyclidine (PCP) (Neg) U Amphetamin/Meth Scrn (Neg) MDMA (Ecstasy) Screen (Neg) U Benzodiazepines Scrn (Neg) Ur Cocaine Metabolite (Neg) U Marijuana (THC) Screen (Neg) Ethyl Alcohol mg/dL (0-3) mg/dl Adenovirus (PCR) Not Detected (NotDetected) B. pertussis DNA (PCR) Not Detected (NotDetected) B.parapertussis DNA PCR Not Detected (NotDetected) C. pneumoniae DNA (PCR) Not Detected (NotDetected) Coronavirus OC43 (PCR) Not Detected (NotDetected) Coronavirus HKU1 (PCR) Not Detected (NotDetected) Coronavirus 229E (PCR) Not Detected (NotDetected) SARS-CoV-2 (PCR) Not Detected (NotDetected) Coronavirus NL63 (PCR) Not Detected (NotDetected) Human Metapneumovir PCR Not Detected (NotDetected) Influenza Type A (PCR) Not Detected (NotDetected) Influenza Type B (PCR) Not Detected (NotDetected) M. pneumoniae (PCR) Not Detected (NotDetected) Parainfluenza 1 (PCR) Not Detected (NotDetected) Parainfluenza 2 (PCR) Not Detected (NotDetected) Parainfluenza 3 (PCR) Not Detected (NotDetected) Parainfluenza 4 (PCR) Not Detected (NotDetected) RSV (PCR) Not Detected (NotDetected) Entero/Rhino (PCR) Not Detected (NotDetected) 05/07/21 05/07/21 05/07/21 Range/Units 03:26 03:31 04:04 WBC 17.31 H D (4.8-10.8) K/uL RBC 4.10 L (4.7-6.1) M/uL Hgb 11.9 L D (14.0-18.0) g/dL POC Hgb 14.3 (14.0-18.0) g/dl Hct 39.8 L (42-52) % POC Hct 42 (42-52) % MCV 97.1 (80-100) fL MCH 29.0 (25-34) pg MCHC 29.9 L (32-36) g/dL RDW Std Deviation 61.4 H (36.4-46.3) fL RDW Coeff of Madelyn 17.1 H (11.5-14.5) % Plt Count 352 D (130-400) K/uL MPV 11.3 H (7.4-10.4) fL Immature Gran % (Auto) 1.3 % Neut % (Auto) 89.4 % Lymph % (Auto) 6.4 % [place] % (Auto) 2.7 % Eos % (Auto) 0.1 % Baso % (Auto) 0.1 % Neut # (Auto) 15.51 H (1.4-6.5) K/uL Lymph # (Auto) 1.10 L (1.2-3.4) K/uL [place] # (Auto) 0.46 (0.11-0.59) K/uL Eos # (Auto) 0.01 (0-0.5) K/uL Baso # (Auto) 0.01 (0-0.2) K/uL Immature Gran # (Auto) 0.22 H (0.00-0.02) K/uL Absolute Nucleated RBC 0.02 H (0-0) K/uL Nucleated RBC % (auto) 0.1 % Polychromasia 1+ Echinocytes 1+ PT INR D-Dimer ABG pH (7.35-7.45) ABG pCO2 (35-46) mmHg ABG pO2 (80-95) mmHg ABG HCO3 (19-24) mmol/L ABG O2 Saturation (90-95) % ABG Base Excess (-9-1.8) mEq/L Frank Test (Pos) Oxygen Given POC Sodium 134 L (135-144) mmol/L Sodium POC Potassium 5.0 (3.3-5.0) mmol/L Potassium POC Chloride 106 (101-112) mmol/L Chloride Carbon Dioxide POC Total CO2 17 L (24-31) mmol/L Anion Gap POC Anion Gap 18.0 (16-25) mmol/L POC BUN 51 H (7-18) mg/dl BUN Creatinine POC Creatinine 6.5 H* (0.6-1.3) mg/dl Est Cr Clr Drug Dosing Est GFR ( Amer) Est GFR (Non-Af Amer) BUN/Creatinine Ratio Glucose POC Glucose (70-99) mg/dl POC Glucose (other) 165 H (70-99) mg/dl Lactate (0.4-2.0) mmol/L Calcium POC Ioniz Calcium Taniya 0.99 L (1.12-1.32) mmol/l Magnesium Total Bilirubin Direct Bilirubin AST ALT Alkaline Phosphatase Total Creatine Kinase Troponin I C-Reactive Protein Total Protein Albumin Lipase Procalcitonin (0-0.5) ng/ml Urine Color Urine Appearance (Clear) Urine pH (4.5-7.5) Ur Specific [place]iga (1.000-1.030) Urine Protein (Negative) Urine Glucose (UA) (Negative) Urine Ketones (Negative) Urine Blood (Negative) Urine Nitrite (Negative) Urine Bilirubin (Negative) Urine Urobilinogen (Negative) Ur Leukocyte Esterase (Negative) Urine WBC (Auto) (0-5) /hpf Urine RBC (Auto) (0-4) /hpf U Hyaline Cast (Auto) (0-5) /lpf U Epithel Cells (Auto) (0-5) /lpf Urine Bacteria (Auto) (Negative) Calcium Oxalate Crystal (None Prsent) Urine Yeast Stl C. cayetanensis PCR (NotDetected) Stool Rotavirus A PCR (NotDetected) Stl Adenov F 40/41 PCR (NotDetected) Stool Astrovirus (PCR) (NotDetected) Stool Campylobacter PCR (NotDetected) Stl C. diff Tox A/B PCR (NotDetected) Stool Cryptosporidium PCR (NotDetected) Stl E.coli Shiga Tox PCR (NotDetected) Stl Enterotoxigenic E PCR (NotDetected) Stool EPEC (PCR) (NotDetected) Stool EAEC (PCR) (NotDetected) Stl E. histolytica PCR (NotDetected) Stool Giardia Lamblia PCR (NotDetected) Stool Salmonella PCR (NotDetected) Stool Sapovirus (PCR) (NotDetected) Stl P. shigelloides PCR (NotDetected) Stl Shigella/EIEC PCR (NotDetected) St Y.enterocolitica PCR (NotDetected) Stool Vibrio (PCR) (NotDetected) Stl Vibrio cholerae PCR (NotDetected) Stl Norovirus GI/GII PCR (NotDetected) Salicylates < 1.7 L (2.8-20) mg/dl Urine Opiates Screen (Neg) Ur Methadone, Qual (Neg) Acetaminophen 18 (10-30) ug/ml Urine Barbiturates (Neg) Ur Phencyclidine (PCP) (Neg) U Amphetamin/Meth Scrn (Neg) MDMA (Ecstasy) Screen (Neg) U Benzodiazepines Scrn (Neg) Ur Cocaine Metabolite (Neg) U Marijuana (THC) Screen (Neg) Ethyl Alcohol mg/dL (0-3) mg/dl Adenovirus (PCR) (NotDetected) B. pertussis DNA (PCR) (NotDetected) B.parapertussis DNA PCR (NotDetected) C. pneumoniae DNA (PCR) (NotDetected) Coronavirus OC43 (PCR) (NotDetected) Coronavirus HKU1 (PCR) (NotDetected) Coronavirus 229E (PCR) (NotDetected) SARS-CoV-2 (PCR) (NotDetected) Coronavirus NL63 (PCR) (NotDetected) Human Metapneumovir PCR (NotDetected) Influenza Type A (PCR) (NotDetected) Influenza Type B (PCR) (NotDetected) M. pneumoniae (PCR) (NotDetected) Parainfluenza 1 (PCR) (NotDetected) Parainfluenza 2 (PCR) (NotDetected) Parainfluenza 3 (PCR) (NotDetected) Parainfluenza 4 (PCR) (NotDetected) RSV (PCR) (NotDetected) Entero/Rhino (PCR) (NotDetected) 05/07/21 05/07/21 05/07/21 Range/Units 04:04 04:04 04:04 WBC (4.8-10.8) K/uL RBC (4.7-6.1) M/uL Hgb (14.0-18.0) g/dL POC Hgb (14.0-18.0) g/dl Hct (42-52) % POC Hct (42-52) % MCV (80-100) fL MCH (25-34) pg MCHC (32-36) g/dL RDW Std Deviation (36.4-46.3) fL RDW Coeff of Madelyn (11.5-14.5) % Plt Count (130-400) K/uL MPV (7.4-10.4) fL Immature Gran % (Auto) % Neut % (Auto) % Lymph % (Auto) % [place] % (Auto) % Eos % (Auto) % Baso % (Auto) % Neut # (Auto) (1.4-6.5) K/uL Lymph # (Auto) (1.2-3.4) K/uL [place] # (Auto) (0.11-0.59) K/uL Eos # (Auto) (0-0.5) K/uL Baso # (Auto) (0-0.2) K/uL Immature Gran # (Auto) (0.00-0.02) K/uL Absolute Nucleated RBC (0-0) K/uL Nucleated RBC % (auto) % Polychromasia Echinocytes PT 11.6 INR 1.2 H D-Dimer 3650 H* ABG pH (7.35-7.45) ABG pCO2 (35-46) mmHg ABG pO2 (80-95) mmHg ABG HCO3 (19-24) mmol/L ABG O2 Saturation (90-95) % ABG Base Excess (-9-1.8) mEq/L Frank Test (Pos) Oxygen Given POC Sodium (135-144) mmol/L Sodium 136 POC Potassium (3.3-5.0) mmol/L Potassium 5.4 H POC Chloride (101-112) mmol/L Chloride 104 Carbon Dioxide 16 L POC Total CO2 (24-31) mmol/L Anion Gap 16.0 H POC Anion Gap (16-25) mmol/L POC BUN (7-18) mg/dl BUN 48 H Creatinine 6.30 H* POC Creatinine (0.6-1.3) mg/dl Est Cr Clr Drug Dosing 17.7 Est GFR ( Amer) 9.9 Est GFR (Non-Af Amer) 8.6 BUN/Creatinine Ratio 7.7 L Glucose 147 H POC Glucose (70-99) mg/dl POC Glucose (other) (70-99) mg/dl Lactate (0.4-2.0) mmol/L Calcium 7.8 L POC Ioniz Calcium Taniya (1.12-1.32) mmol/l Magnesium 3.0 H Total Bilirubin 0.4 Direct Bilirubin 0.2 AST 173 H ALT 58 Alkaline Phosphatase 125 H Total Creatine Kinase Troponin I 0.021 C-Reactive Protein Total Protein 7.2 Albumin 2.8 L Lipase 282 Procalcitonin 0.43 (0-0.5) ng/ml Urine Color Urine Appearance (Clear) Urine pH (4.5-7.5) Ur Specific [place]iga (1.000-1.030) Urine Protein (Negative) Urine Glucose (UA) (Negative) Urine Ketones (Negative) Urine Blood (Negative) Urine Nitrite (Negative) Urine Bilirubin (Negative) Urine Urobilinogen (Negative) Ur Leukocyte Esterase (Negative) Urine WBC (Auto) (0-5) /hpf Urine RBC (Auto) (0-4) /hpf U Hyaline Cast (Auto) (0-5) /lpf U Epithel Cells (Auto) (0-5) /lpf Urine Bacteria (Auto) (Negative) Calcium Oxalate Crystal (None Prsent) Urine Yeast Stl C. cayetanensis PCR (NotDetected) Stool Rotavirus A PCR (NotDetected) Stl Adenov F 40/41 PCR (NotDetected) Stool Astrovirus (PCR) (NotDetected) Stool Campylobacter PCR (NotDetected) Stl C. diff Tox A/B PCR (NotDetected) Stool Cryptosporidium PCR (NotDetected) Stl E.coli Shiga Tox PCR (NotDetected) Stl Enterotoxigenic E PCR (NotDetected) Stool EPEC (PCR) (NotDetected) Stool EAEC (PCR) (NotDetected) Stl E. histolytica PCR (NotDetected) Stool Giardia Lamblia PCR (NotDetected) Stool Salmonella PCR (NotDetected) Stool Sapovirus (PCR) (NotDetected) Stl P. shigelloides PCR (NotDetected) Stl Shigella/EIEC PCR (NotDetected) St Y.enterocolitica PCR (NotDetected) Stool Vibrio (PCR) (NotDetected) Stl Vibrio cholerae PCR (NotDetected) Stl Norovirus GI/GII PCR (NotDetected) Salicylates (2.8-20) mg/dl Urine Opiates Screen (Neg) Ur Methadone, Qual (Neg) Acetaminophen (10-30) ug/ml Urine Barbiturates (Neg) Ur Phencyclidine (PCP) (Neg) U Amphetamin/Meth Scrn (Neg) MDMA (Ecstasy) Screen (Neg) U Benzodiazepines Scrn (Neg) Ur Cocaine Metabolite (Neg) U Marijuana (THC) Screen (Neg) Ethyl Alcohol mg/dL (0-3) mg/dl Adenovirus (PCR) (NotDetected) B. pertussis DNA (PCR) (NotDetected) B.parapertussis DNA PCR (NotDetected) C. pneumoniae DNA (PCR) (NotDetected) Coronavirus OC43 (PCR) (NotDetected) Coronavirus HKU1 (PCR) (NotDetected) Coronavirus 229E (PCR) (NotDetected) SARS-CoV-2 (PCR) (NotDetected) Coronavirus NL63 (PCR) (NotDetected) Human Metapneumovir PCR (NotDetected) Influenza Type A (PCR) (NotDetected) Influenza Type B (PCR) (NotDetected) M. pneumoniae (PCR) (NotDetected) Parainfluenza 1 (PCR) (NotDetected) Parainfluenza 2 (PCR) (NotDetected) Parainfluenza 3 (PCR) (NotDetected) Parainfluenza 4 (PCR) (NotDetected) RSV (PCR) (NotDetected) Entero/Rhino (PCR) (NotDetected) 05/07/21 05/07/21 05/07/21 Range/Units 04:10 04:58 05:17 WBC (4.8-10.8) K/uL RBC (4.7-6.1) M/uL Hgb (14.0-18.0) g/dL POC Hgb (14.0-18.0) g/dl Hct (42-52) % POC Hct (42-52) % MCV (80-100) fL MCH (25-34) pg MCHC (32-36) g/dL RDW Std Deviation (36.4-46.3) fL RDW Coeff of Madelyn (11.5-14.5) % Plt Count (130-400) K/uL MPV (7.4-10.4) fL Immature Gran % (Auto) % Neut % (Auto) % Lymph % (Auto) % [place] % (Auto) % Eos % (Auto) % Baso % (Auto) % Neut # (Auto) (1.4-6.5) K/uL Lymph # (Auto) (1.2-3.4) K/uL [place] # (Auto) (0.11-0.59) K/uL Eos # (Auto) (0-0.5) K/uL Baso # (Auto) (0-0.2) K/uL Immature Gran # (Auto) (0.00-0.02) K/uL Absolute Nucleated RBC (0-0) K/uL Nucleated RBC % (auto) % Polychromasia Echinocytes PT INR D-Dimer ABG pH (7.35-7.45) ABG pCO2 (35-46) mmHg ABG pO2 (80-95) mmHg ABG HCO3 (19-24) mmol/L ABG O2 Saturation (90-95) % ABG Base Excess (-9-1.8) mEq/L Frank Test (Pos) Oxygen Given POC Sodium (135-144) mmol/L Sodium POC Potassium (3.3-5.0) mmol/L Potassium POC Chloride (101-112) mmol/L Chloride Carbon Dioxide POC Total CO2 (24-31) mmol/L Anion Gap POC Anion Gap (16-25) mmol/L POC BUN (7-18) mg/dl BUN Creatinine POC Creatinine (0.6-1.3) mg/dl Est Cr Clr Drug Dosing Est GFR ( Amer) Est GFR (Non-Af Amer) BUN/Creatinine Ratio Glucose POC Glucose 177 H (70-99) mg/dl POC Glucose (other) (70-99) mg/dl Lactate 3.7 H* (0.4-2.0) mmol/L Calcium POC Ioniz Calcium Taniya (1.12-1.32) mmol/l Magnesium Total Bilirubin Direct Bilirubin AST ALT Alkaline Phosphatase Total Creatine Kinase Troponin I C-Reactive Protein Total Protein Albumin Lipase Procalcitonin (0-0.5) ng/ml Urine Color Urine Appearance (Clear) Urine pH (4.5-7.5) Ur Specific [place] (1.000-1.030) Urine Protein (Negative) Urine Glucose (UA) (Negative) Urine Ketones (Negative) Urine Blood (Negative) Urine Nitrite (Negative) Urine Bilirubin (Negative) Urine Urobilinogen (Negative) Ur Leukocyte Esterase (Negative) Urine WBC (Auto) (0-5) /hpf Urine RBC (Auto) (0-4) /hpf U Hyaline Cast (Auto) (0-5) /lpf U Epithel Cells (Auto) (0-5) /lpf Urine Bacteria (Auto) (Negative) Calcium Oxalate Crystal (None Prsent) Urine Yeast Stl C. cayetanensis PCR Not Detected (NotDetected) Stool Rotavirus A PCR Not Detected (NotDetected) Stl Adenov F 40/41 PCR Not Detected (NotDetected) Stool Astrovirus (PCR) Not Detected (NotDetected) Stool Campylobacter PCR Not Detected (NotDetected) Stl C. diff Tox A/B PCR Not Detected (NotDetected) Stool Cryptosporidium PCR Not Detected (NotDetected) Stl E.coli Shiga Tox PCR Not Detected (NotDetected) Stl Enterotoxigenic E PCR Not Detected (NotDetected) Stool EPEC (PCR) Not Detected (NotDetected) Stool EAEC (PCR) Not Detected (NotDetected) Stl E. histolytica PCR Not Detected (NotDetected) Stool Giardia Lamblia PCR Not Detected (NotDetected) Stool Salmonella PCR Not Detected (NotDetected) Stool Sapovirus (PCR) Not Detected (NotDetected) Stl P. shigelloides PCR Not Detected (NotDetected) Stl Shigella/EIEC PCR Not Detected (NotDetected) St Y.enterocolitica PCR Not Detected (NotDetected) Stool Vibrio (PCR) Not Detected (NotDetected) Stl Vibrio cholerae PCR Not Detected (NotDetected) Stl Norovirus GI/GII PCR Not Detected (NotDetected) Salicylates (2.8-20) mg/dl Urine Opiates Screen (Neg) Ur Methadone, Qual (Neg) Acetaminophen (10-30) ug/ml Urine Barbiturates (Neg) Ur Phencyclidine (PCP) (Neg) U Amphetamin/Meth Scrn (Neg) MDMA (Ecstasy) Screen (Neg) U Benzodiazepines Scrn (Neg) Ur Cocaine Metabolite (Neg) U Marijuana (THC) Screen (Neg) Ethyl Alcohol mg/dL (0-3) mg/dl Adenovirus (PCR) (NotDetected) B. pertussis DNA (PCR) (NotDetected) B.parapertussis DNA PCR (NotDetected) C. pneumoniae DNA (PCR) (NotDetected) Coronavirus OC43 (PCR) (NotDetected) Coronavirus HKU1 (PCR) (NotDetected) Coronavirus 229E (PCR) (NotDetected) SARS-CoV-2 (PCR) (NotDetected) Coronavirus NL63 (PCR) (NotDetected) Human Metapneumovir PCR (NotDetected) Influenza Type A (PCR) (NotDetected) Influenza Type B (PCR) (NotDetected) M. pneumoniae (PCR) (NotDetected) Parainfluenza 1 (PCR) (NotDetected) Parainfluenza 2 (PCR) (NotDetected) Parainfluenza 3 (PCR) (NotDetected) Parainfluenza 4 (PCR) (NotDetected) RSV (PCR) (NotDetected) Entero/Rhino (PCR) (NotDetected) 05/07/21 05/07/21 Range/Units 06:18 06:18 WBC (4.8-10.8) K/uL RBC (4.7-6.1) M/uL Hgb (14.0-18.0) g/dL POC Hgb (14.0-18.0) g/dl Hct (42-52) % POC Hct (42-52) % MCV (80-100) fL MCH (25-34) pg MCHC (32-36) g/dL RDW Std Deviation (36.4-46.3) fL RDW Coeff of Madelyn (11.5-14.5) % Plt Count (130-400) K/uL MPV (7.4-10.4) fL Immature Gran % (Auto) % Neut % (Auto) % Lymph % (Auto) % [place] % (Auto) % Eos % (Auto) % Baso % (Auto) % Neut # (Auto) (1.4-6.5) K/uL Lymph # (Auto) (1.2-3.4) K/uL [place] # (Auto) (0.11-0.59) K/uL Eos # (Auto) (0-0.5) K/uL Baso # (Auto) (0-0.2) K/uL Immature Gran # (Auto) (0.00-0.02) K/uL Absolute Nucleated RBC (0-0) K/uL Nucleated RBC % (auto) % Polychromasia Echinocytes PT INR D-Dimer ABG pH 7.07 L* (7.35-7.45) ABG pCO2 60 H (35-46) mmHg ABG pO2 104 H (80-95) mmHg ABG HCO3 17 L (19-24) mmol/L ABG O2 Saturation 96.0 H (90-95) % ABG Base Excess -13.9 L (-9-1.8) mEq/L Frank Test Pos (Pos) Oxygen Given 80% FI02 POC Sodium (135-144) mmol/L Sodium POC Potassium (3.3-5.0) mmol/L Potassium POC Chloride (101-112) mmol/L Chloride Carbon Dioxide POC Total CO2 (24-31) mmol/L Anion Gap POC Anion Gap (16-25) mmol/L POC BUN (7-18) mg/dl BUN Creatinine POC Creatinine (0.6-1.3) mg/dl Est Cr Clr Drug Dosing Est GFR ( Amer) Est GFR (Non-Af Amer) BUN/Creatinine Ratio Glucose POC Glucose (70-99) mg/dl POC Glucose (other) (70-99) mg/dl Lactate 3.4 H* (0.4-2.0) mmol/L Calcium POC Ioniz Calcium Taniya (1.12-1.32) mmol/l Magnesium Total Bilirubin Direct Bilirubin AST ALT Alkaline Phosphatase Total Creatine Kinase Troponin I C-Reactive Protein Total Protein Albumin Lipase Procalcitonin (0-0.5) ng/ml Urine Color Urine Appearance (Clear) Urine pH (4.5-7.5) Ur Specific [place] (1.000-1.030) Urine Protein (Negative) Urine Glucose (UA) (Negative) Urine Ketones (Negative) Urine Blood (Negative) Urine Nitrite (Negative) Urine Bilirubin (Negative) Urine Urobilinogen (Negative) Ur Leukocyte Esterase (Negative) Urine WBC (Auto) (0-5) /hpf Urine RBC (Auto) (0-4) /hpf U Hyaline Cast (Auto) (0-5) /lpf U Epithel Cells (Auto) (0-5) /lpf Urine Bacteria (Auto) (Negative) Calcium Oxalate Crystal (None Prsent) Urine Yeast Stl C. cayetanensis PCR (NotDetected) Stool Rotavirus A PCR (NotDetected) Stl Adenov F 40/41 PCR (NotDetected) Stool Astrovirus (PCR) (NotDetected) Stool Campylobacter PCR (NotDetected) Stl C. diff Tox A/B PCR (NotDetected) Stool Cryptosporidium PCR (NotDetected) Stl E.coli Shiga Tox PCR (NotDetected) Stl Enterotoxigenic E PCR (NotDetected) Stool EPEC (PCR) (NotDetected) Stool EAEC (PCR) (NotDetected) Stl E. histolytica PCR (NotDetected) Stool Giardia Lamblia PCR (NotDetected) Stool Salmonella PCR (NotDetected) Stool Sapovirus (PCR) (NotDetected) Stl P. shigelloides PCR (NotDetected) Stl Shigella/EIEC PCR (NotDetected) St Y.enterocolitica PCR (NotDetected) Stool Vibrio (PCR) (NotDetected) Stl Vibrio cholerae PCR (NotDetected) Stl Norovirus GI/GII PCR (NotDetected) Salicylates (2.8-20) mg/dl Urine Opiates Screen (Neg) Ur Methadone, Qual (Neg) Acetaminophen (10-30) ug/ml Urine Barbiturates (Neg) Ur Phencyclidine (PCP) (Neg) U Amphetamin/Meth Scrn (Neg) MDMA (Ecstasy) Screen (Neg) U Benzodiazepines Scrn (Neg) Ur Cocaine Metabolite (Neg) U Marijuana (THC) Screen (Neg) Ethyl Alcohol mg/dL (0-3) mg/dl Adenovirus (PCR) (NotDetected) B. pertussis DNA (PCR) (NotDetected) B.parapertussis DNA PCR (NotDetected) C. pneumoniae DNA (PCR) (NotDetected) Coronavirus OC43 (PCR) (NotDetected) Coronavirus HKU1 (PCR) (NotDetected) Coronavirus 229E (PCR) (NotDetected) SARS-CoV-2 (PCR) (NotDetected) Coronavirus NL63 (PCR) (NotDetected) Human Metapneumovir PCR (NotDetected) Influenza Type A (PCR) (NotDetected) Influenza Type B (PCR) (NotDetected) M. pneumoniae (PCR) (NotDetected) Parainfluenza 1 (PCR) (NotDetected) Parainfluenza 2 (PCR) (NotDetected) Parainfluenza 3 (PCR) (NotDetected) Parainfluenza 4 (PCR) (NotDetected) RSV (PCR) (NotDetected) Entero/Rhino (PCR) (NotDetected) Administered Medications Propofol (Diprivan) 1,000 mg in 100 mls @ 17.7 mls/hr IV .Q5H39M [facility]; Protocol Stop: 05/10/21 02:59 Last Admin: 05/07/21 03:08 Dose: 20 mcg/kg/min, 17.7 mls/hr Documented by: [id number] Cosigned by: [id number] Norepinephrine Bitartrate (Levophed/D5w) 8 mg in 508 mls @ 112.395 mls/hr IV .Q4H32M [facility]; Protocol Stop: 06/06/21 03:44 Last Titration: 05/07/21 04:48 Dose: 0.2 mcg/kg/min, 112.4 mls/hr Documented by: [id number] Titration: 05/07/21 04:16 Dose: 0.1 mcg/kg/min, 56.2 mls/hr Documented by: [id number] Admin: 05/07/21 03:43 Dose: 0.05 mcg/kg/min, 28.1 mls/hr Documented by: [id number] Cosigned by: [id number] Propofol (Propofol Bolus From Bag) 20 mg IV Q5M PRN PRN Reason: Sedation Stop: 05/10/21 02:47 Last Admin: 05/07/21 03:09 Dose: 20 mg Documented by: [id number] Cosigned by: [id number] Discontinued Medications Dextrose (Dextrose 50% 50 Ml Syringe) 50 ml IV NOW STA Stop: 05/07/21 04:55 Last Admin: 05/07/21 07:36 Dose: 50 ml Documented by: [id number] Fentanyl Citrate (Fentanyl Citrate 100 Mcg/2 Ml Vial) 100 mcg IV NOW STA Stop: 05/07/21 03:28 Last Admin: 05/07/21 02:41 Dose: 100 mcg Documented by: [id number] Sodium Chloride (Nss 1000ml) 1,000 mls @ 999 mls/hr IV .Q1H1M ONE Stop: 05/07/21 03:48 Last Infusion: 05/07/21 03:55 Dose: 0 mls/hr Documented by: [id number] Admin: 05/07/21 03:04 Dose: 999 mls/hr Documented by: [id number] Sodium Chloride (Nss 1000ml) 1,000 mls @ 999 mls/hr IV .Q1H1M ONE Stop: 05/07/21 04:11 Last Infusion: 05/07/21 04:45 Dose: 0 mls/hr Documented by: [id number] Admin: 05/07/21 03:25 Dose: 999 mls/hr Documented by: [id number] Sodium Chloride (Nss 1000ml) 1,000 mls @ 999 mls/hr IV .Q1H1M ONE Stop: 05/07/21 04:19 Last Infusion: 05/07/21 04:50 Dose: 0 mls/hr Documented by: [id number] Admin: 05/07/21 03:23 Dose: 999 mls/hr Documented by: [id number] Piperacillin Sod/Tazobactam Sod (Zosyn) 4.5 gm in 120 mls @ 240 mls/hr IV NOW ONE Stop: 05/07/21 05:17 Last Infusion: 05/07/21 06:00 Dose: 0 mls/hr Documented by: [id number] Admin: 05/07/21 05:24 Dose: 240 mls/hr Documented by: [id number] Vancomycin HCl 2,750 mg/ (Sodium Chloride) 555 mls @ 200 mls/hr IV NOW ONE Stop: 05/07/21 07:35 Last Admin: 05/07/21 06:05 Dose: 200 mls/hr Documented by: [id number] Sodium Chloride (Nss 1000ml) 1,000 mls @ 999 mls/hr IV .Q1H1M ONE Stop: 05/07/21 07:30 Last Admin: 05/07/21 06:55 Dose: 999 mls/hr Documented by: [id number] Insulin Human Regular (Insulin Human Regular) 10 units IV NOW STA Stop: 05/07/21 06:03 Last Admin: 05/07/21 07:37 Dose: 10 units Documented by: [id number] Cosigned by: [id number] Miscellaneous (Stat Iv Infusion Titration Per Protocol) 1 ea N/A NOW STA Stop: 05/07/21 02:49 Last Admin: 05/07/21 03:32 Dose: Not Given Documented by: [id number] Miscellaneous (Stat Iv Infusion Titration Per Protocol) 1 ea N/A NOW STA Stop: 05/07/21 03:39 Last Admin: 05/07/21 03:51 Dose: Not Given Documented by: [id number] Propofol (Propofol Iv Emulsion 10 Mg/Ml 100 Ml Vial) Confirm Administered Dose 1,000 mg IV .STK-MED ONE Stop: 05/07/21 03:00 Last Admin: 05/07/21 03:24 Dose: Not Given Documented by: [id number] Sodium Bicarbonate (Sodium Bicarb 8.4% Inj 50 Meq/50 Ml Syr) 100 meq IV NOW STA Stop: 05/07/21 06:03 Last Admin: 05/07/21 07:36 Dose: 100 meq Documented by: [id number] Imaging Data Radiologist's Impression: Chest X-Ray 05/07/21 02:50 XR chest 1V portable CLINICAL HISTORY: s/p intubation COMPARISON STUDY: No previous studies for comparison. FINDINGS: Tip of endotracheal tube is 4.3 cm above the ivan. There is no p neumothorax or pleural effusion. Lung volumes are mildly diminished. There are bibasilar opacities. There is no radiographic evidence for pulmonary edema. Mild cardiomegaly is noted. IMPRESSION: 1. Tip of endotracheal tube 4.3 cm above the ivan. 2. Bibasilar opacities which may reflect consolidation or atelectasis. 3. Mild cardiomegaly without evidence for pulmonary edema. ACT 112: Negative or not required by law. Electronically signed by: Lm Colón M.D. 05/07/2021 6:[address] 05/07/21 03:19 CT OF THE HEAD WITHOUT CONTRAST CLINICAL HISTORY: Altered mental status. COMPARISON STUDY: No previous studies for comparison. TECHNIQUE: Helical axial images of the head were obtained without IV contrast. Automated exposure control was utilized for the study. A dose lowering technique was utilized adhering to the principles of ALARA. FINDINGS: No acute intracranial hemorrhage, midline shift or mass effect is pres ent. Mild white matter hypodensity suggests small vessel disease. The ventricular system is unremarkable. Hypodensity within the right basal ganglia could reflect a prominent perivascular space or old lacunar infarct. The basal cisterns are patent. No extra-axial collections are present. There are no findings to suggest acute dural sinus thrombosis or acute territorial infarct. No significant calvarial abnormalities are present. Visualized portions of the sinuses and mastoid air cells are clear. There are secretions within the nasal cavity. IMPRESSION: No acute intracranial findings. ACT 112: Negative or not required by law. Electronically signed by: Lm Colón M.D. 05/07/2021 6:36 AM Abdomen/Pelvis CT 05/07/21 03:38 CT OF THE ABDOMEN AND PELVIS WITHOUT CONTRAST CLINICAL HISTORY: Altered mental status. Renal failure. COMPARISON STUDY: No previous studies for comparison. TECHNIQUE: Axial images of the abdomen and pelvis were obtained without IV contrast. Images were reviewed in the axial, sagittal, and coronal planes. Automated exposure control was utilized for the study. A dose lowering techni que was utilized adhering to the principles of ALARA. FINDINGS: Please note that the chest CT will be reported separately. There are bilateral lower lobe airspace opacities. Cardiomegaly is noted. Evaluation of the abdomen and pelvis is suboptimal on this unenhanced examination. The liver is cirrhotic. Sensitivity for detection of hepatic lesions diminished but none are identified. Mild splenomegaly is noted. The adrenal glands and kidneys are unremarkable with the exception of mild bilateral renal cortical thinning. There is no hydronephrosis. No renal, ureteral or bladder calculi are present. Moy balloon is present within the bladder which is collapsed. There is no evidence for a bowel obstruction. No biliary or pancreatic ductal dilatation is noted. There is trace stranding within the malcolm hepatis. This may be related to cirrhosis. There is a small fat and fluid containing umbilical hernia. Fat- containing bilateral inguinal hernias are present. No acute fracture is identified within the lumbar spine or the pelvis. IMPRESSION: 1. No acute process within the abdomen or pelvis on unenhanced exam. 2. Cirrhosis. Mild splenomegaly. 3. No bowel obstruction. 4. Fat and fluid containing umbilical hernia. Fat-containing bilateral inguinal hernias. 5. No urinary calculi. No hydronephrosis. 6. Bilateral lower lobe airspace opacities which may reflect pneumonia, aspiration pneumonitis or atelectasis. ACT 112: Negative or not required by law. Electronically signed by: Lm Colón M.D. 05/07/2021 6:[address] 05/07/21 03:38 CT OF THE CHEST WITHOUT IV CONTRAST CLINICAL HISTORY: Altered mental status, respiratory failure COMPARISON STUDY: Chest radiograph performed earlier today. CT DOSE: 3838.82 mGy.cm TECHNIQUE: Axial images of the chest were obtained without IV contrast. Images were reviewed in the axial, sagittal, and coronal planes. IV contrast was not administered for this examination. Automated exposure control was utilized for the study. A dose lowering technique was utilized adhering to the principles of ALARA. FINDINGS: Tip of endotracheal tube is 2.8 cm above the ivan. There is no pericardial effusion. Mild cardiomegaly and moderate coronary artery calcification is noted. Lungs are suboptimally assessed due to respiratory motion. No pneumothorax or pleural effusion is noted. Moderate bilateral lower lobe airspace opacities are present. There are secretions within the airways. Multiple old bilateral rib fractures are noted. There are also several age indeterminate nondisplaced anterior bilateral rib fractures. There is no thoracic lymphadenopathy. Abdomen and pelvis will be reported separately. The liver is cirrhotic. There is bilateral gynecomastia. IMPRESSION: 1. Satisfactory positioning of the endotracheal tube. 2. Moderate bilateral lower lobe airspace opacities which could reflect pneumonia, aspiration pneumonitis or atelectasis. 3. Mild cardiomegaly and moderate coronary artery calcification. 4. Multiple old bilateral rib fractures. A few age-indeterminate nondisplaced anterior bilateral rib fractures. No pneumothorax. ACT 112: Negative or not required by law. Electronically signed by: Lm Colón M.D. 05/07/2021 6:44 AM Discharge Plan Visit Data Chief Complaint: Unresponsive Stated Complaint: UNCON/UNRESP ED Provider: Aleks Palacios Discharge Problem: Acute respiratory failure, Metabolic acidosis, Acute renal failure, Acute hypotension Patient Disposition: Admitted As Inpatient Discharge Instructions Interventions: ED Discharge Assessment Last Done: 05/07/21 07:11 Forms Stand Alone Forms: [facility] Referrals Referrals: PCP,NO [Physician] - Discharge Problem: Acute respiratory failure Qualifiers: Respiratory failure complication: hypoxia and hypercapnia Qualified Code(s): J96.01 - Acute respiratory failure with hypoxia Acute renal failure Qualifiers: Acute renal failure type: unspecified Qualified Code(s): N17.9 - Acute kidney failure, unspecified
[2021-05-07] MEDS ORDERED: PROPOFOL IV EMULSION 10 MG/ML 100 ML VIAL IV ONE (02:59)
[2021-05-07] MEDS: propofoL 1,000 MG/100 ML VIAL IV SCH ×5 (03:08→23:51)
[2021-05-07 03:25] LABS: Appearance Urine Cloudy (Clear); Blood Urine 1+ (Negative); Color Urine Dark Yellow; Epithelial Cell Urine Auto >30 /lpf (0-5); Glucose Urine UA Trace (Negative); Ketones Urine Trace (Negative); Leukocyte Esterase Urine Trace (Negative); Nitrite Urine Negative (Negative); Protein Urine 3+ (Negative); RBC Urine Automated 0-4 /hpf (0-4); Specific Gravity Urine 1.023 (1.000-1.030); Urobilinogen Urine Negative (Negative)
[2021-05-07] MEDS ORDERED: fentaNYL citrate 100 MCG/2 ML VIAL IV STA (03:27)
[2021-05-07 03:34] LABS: Bilirubin Urine 1+ (Negative)
[2021-05-07 03:43] LABS: Amphetamines+Metham, Urine Neg (Neg); Barbiturates, Urine Neg (Neg); Benzodiazepine, Urine Neg (Neg); Cocaine, Urine Neg (Neg); MDMA (Ecstacy), Urine Neg (Neg); Methadone, Urine Neg (Neg); Opiate, Urine Pos (Neg); Phencyclidine, Urine Neg (Neg)
[2021-05-07] MEDS: NOREPINEPHRINE/D5W 8 MG/508 ML BAG IV SCH ×4 (03:43→22:37)
[2021-05-07 03:50] LABS: Hematocrit (blood only) 12.6 % (42-52); Hemoglobin 3.8 g/dL (14.0-18.0); Mean Corpuscular Hemoglobin 30.2 pg (25-34); Mean Corpuscular Hgb Conc 30.2 g/dL (32-36); Mean Platelet Volume 10.2 fL (7.4-10.4); Nucleated RBC # (auto) 0.04 K/uL (0-0); Nucleated RBC % (auto) 0.7 %; Platelet Count 113 K/uL (130-400); RDW Coefficient of Variation 17.5 % (11.5-14.5); RDW Standard Deviation 64.9 fL (36.4-46.3); Red Blood Count 1.26 M/uL (4.7-6.1); White Blood Count 5.59 K/uL (4.8-10.8)
[2021-05-07 04:08] LABS: Acetaminophen 18 ug/ml (10-30); Salicylate < 1.7 mg/dl (2.8-20)
[2021-05-07 04:12] LABS: Bacteria Urine Automated 2+ (Negative)
[2021-05-07 04:18] LABS: Adenovirus PCR Not Detected (NotDetected); Bordetella parapertussis PCR Not Detected (NotDetected); Bordetella pertussis PCR Not Detected (NotDetected); Chlamydia pneumoniae PCR Not Detected (NotDetected); Coronavirus 229E PCR Not Detected (NotDetected); Coronavirus CoV-2 (COVID19)PCR Not Detected (NotDetected); Coronavirus HKU1 PCR Not Detected (NotDetected); Coronavirus NL63 PCR Not Detected (NotDetected); Coronavirus OC43PCR Not Detected (NotDetected); Human Metapneumovirus PCR Not Detected (NotDetected); Influenza A PCR Not Detected (NotDetected); Influenza B PCR Not Detected (NotDetected); Mycoplasma pneumoniae PCR Not Detected (NotDetected); Parainfluenza Virus 1 PCR Not Detected (NotDetected); Parainfluenza Virus 2 PCR Not Detected (NotDetected); Parainfluenza Virus 3 PCR Not Detected (NotDetected); Parainfluenza Virus 4 PCR Not Detected (NotDetected); Respiratory Syncytial VirusPCR Not Detected (NotDetected); Rhinovirus/Enterovirus PCR Not Detected (NotDetected)
[2021-05-07 04:20] LABS: Echinocytes 1+; Immature Granulocytes # (auto) 0.06 K/uL (0.00-0.02); Immature Granulocytes % (auto) 1.1 %; Lymphocytes # (auto) 0.19 K/uL (1.2-3.4); Lymphocytes % (auto) 3.4 %; Monocytes # (auto) 0.24 K/uL (0.11-0.59); Monocytes % (auto) 4.3 %; Neutrophils % (auto) 91.2 %
[2021-05-07 04:34] LABS: Hematocrit (blood only) 39.8 % (42-52); Hemoglobin 11.9 g/dL (14.0-18.0); Mean Corpuscular Hgb Conc 29.9 g/dL (32-36); Mean Corpuscular Volume 97.1 fL (80-100); Mean Platelet Volume 11.3 fL (7.4-10.4); Nucleated RBC # (auto) 0.02 K/uL (0-0); Nucleated RBC % (auto) 0.1 %; Platelet Count 352 K/uL (130-400); RDW Coefficient of Variation 17.1 % (11.5-14.5); RDW Standard Deviation 61.4 fL (36.4-46.3); White Blood Count 17.31 K/uL (4.8-10.8)
[2021-05-07 04:36] LABS: INR 1.2 (0.9-1.1); Prothrombin Time 11.6 Seconds (9.0-12.0)
[2021-05-07 04:38] LABS: Calcium Oxalate Crystals Urine Present (None Prsent)
[2021-05-07 04:46] LABS: D Dimer 3650 ug/L FEU (0-500)
[2021-05-07] MEDS ORDERED: PIPERACILL/TAZOBAC CONSULT ACTIVE PRN (04:48)
[2021-05-07] MEDS ORDERED: VANCOMYCIN HCL 2,750 MG in SODIUM CHLORIDE 0.9% 500 ML IV ONE (04:48)
[2021-05-07] MEDS ORDERED: PIPERACILLIN/TAZOBACTAM 4.5 GM/120 ML BAG IV ONE (04:48)
[2021-05-07] MEDS ORDERED: VANCOMYCIN CONSULT ACTIVE PRN (04:48)
[2021-05-07 04:54] LABS: Albumin Level 2.8 gm/dl (3.4-5.0); BUN Creatinine Ratio 7.7 (10-20); Bilirubin,Total 0.4 mg/dl (0.2-1); Calcium 7.8 mg/dl (8.5-10.1); Creatinine Clr Calc Pharmacy 17.7 ml/min; Est GFR (African American) 9.9 ml/min; Est GFR (Non-African American) 8.6 ml/min; Total Protein 7.2 gm/dl (6.4-8.2); Troponin I 0.021 ng/ml (0-0.045)
[2021-05-07] MEDS ORDERED: DEXTROSE 50% 50 ML SYRINGE IV STA (04:54)
[2021-05-07 04:56] LABS: Basophils # (auto) 0.01 K/uL (0-0.2); Basophils % (auto) 0.1 %; Bilirubin Direct 0.2 mg/dl (0-0.2); Echinocytes 1+; Eosinophils # (auto) 0.01 K/uL (0-0.5); Eosinophils % (auto) 0.1 %; Immature Granulocytes # (auto) 0.22 K/uL (0.00-0.02); Immature Granulocytes % (auto) 1.3 %; Lymphocytes % (auto) 6.4 %; Monocytes # (auto) 0.46 K/uL (0.11-0.59); Monocytes % (auto) 2.7 %; Neutrophils # (auto) 15.51 K/uL (1.4-6.5); Neutrophils % (auto) 89.4 %; Polychromasia 1+; Potassium 5.4 mmol/L (3.5-5.1)
[2021-05-07 05:32] LABS: iSTAT Creatinine 6.5 mg/dl (0.6-1.3); iSTAT Hemoglobin 14.3 g/dl (14.0-18.0); iSTAT Ionized Calcium 0.99 mmol/l (1.12-1.32)
[2021-05-07 05:42] LABS: Adenovirus F 40/41 PCR Not Detected (NotDetected); Astrovirus PCR Not Detected (NotDetected); Campylobacter PCR Not Detected (NotDetected); Clostridium diff Toxin A/B PCR Not Detected (NotDetected); Cryptosporidium PCR Not Detected (NotDetected); Cyclospora cayetanensis PCR Not Detected (NotDetected); Entamoeba histolytica PCR Not Detected (NotDetected); Enteroaggregative E.coli(EAEC) Not Detected (NotDetected); Enteropathogenic E.coli (EPEC) Not Detected (NotDetected); Enterotoxigenic E.coli (ETEC) Not Detected (NotDetected); Giardia lamblia PCR Not Detected (NotDetected); Norovirus GI/GII PCR Not Detected (NotDetected); Plesiomonas shigelloides PCR Not Detected (NotDetected); Rotavirus A PCR Not Detected (NotDetected); Salmonella PCR Not Detected (NotDetected); Sapovirus PCR Not Detected (NotDetected); Shiga-like Toxin E.coli (STEC) Not Detected (NotDetected); Shigella/Enteroinvasive E.coli Not Detected (NotDetected); Vibrio cholerae PCR Not Detected (NotDetected); Vibrio species PCR Not Detected (NotDetected); Yersinia enterocolitica PCR Not Detected (NotDetected)
[2021-05-07] MEDS ORDERED: INSULIN HUMAN REGULAR IV STA (06:02)
[2021-05-07] MEDS ORDERED: SODIUM BICARB 8.4% INJ 50 MEQ/50 ML SYR IV STA (06:02)
[2021-05-07] MEDS ORDERED: SODIUM POLYSTYRENE SULFONATE 15G/60ML SUSP PO STA (06:04)
[2021-05-07 06:29] LABS: Base Excess ABG -13.9 mEq/L (-9-1.8); HCO3 ABG 17 mmol/L (19-24); PCO2 ABG 60 mmHg (35-46); PO2 ABG 104 mmHg (80-95)
[2021-05-07 06:30] LABS: Allen Test Pos (Pos)
[2021-05-07 06:32] LABS: pH ABG 7.07 (7.35-7.45)
--- NOTE | 2021-05-07 06:32 | XRay Report ---
XR chest 1V portable CLINICAL HISTORY: s/p intubation COMPARISON STUDY: No previous studies for comparison. FINDINGS: Tip of endotracheal tube is 4.3 cm above the ivan. There is no pneumothorax or pleural ef fusion. Lung volumes are mildly diminished. There are bibasilar opacities. There is no radiographic e vidence for pulmonary edema. Mild cardiomegaly is noted. IMPRESSION: 1. Tip of endotracheal tube 4.3 cm above the ivan. 2. Bibasilar opacities which may reflect consolidation or atelectasis. 3. Mild cardiomegaly without evidence for pulmonary edema. ACT 112: Negative or not required by law. Electronically signed by: Lm Colón M.D. 05/07/2021 6:30 AM
--- NOTE | 2021-05-07 06:38 | CT Scan Report ---
CT OF THE HEAD WITHOUT CONTRAST CLINICAL HISTORY: Altered mental status. COMPARISON STUDY: No previous studies for comparison. TECHNIQUE: Helical axial images of the head were obtained without IV contrast. Automated exposure con trol was utilized for the study. A dose lowering technique was utilized adhering to the principles o f ALARA. FINDINGS: No acute intracranial hemorrhage, midline shift or mass effect is present. Mild white matte r hypodensity suggests small vessel disease. The ventricular system is unremarkable. Hypodensity with in the right basal ganglia could reflect a prominent perivascular space or old lacunar infarct. The b mar cisterns are patent. No extra-axial collections are present. There are no findings to suggest ac [place] dural sinus thrombosis or acute territorial infarct. No significant calvarial abnormalities are p resent. Visualized portions of the sinuses and mastoid air cells are clear. There are secretions with in the nasal cavity. IMPRESSION: No acute intracranial findings. ACT 112: Negative or not required by law. Electronically signed by: Lm Colón M.D. 05/07/2021 6:36 AM
--- NOTE | 2021-05-07 06:45 | CT Scan Report ---
CT OF THE CHEST WITHOUT IV CONTRAST CLINICAL HISTORY: Altered mental status, respiratory failure COMPARISON STUDY: Chest radiograph performed earlier today. CT DOSE: 3838.82 mGy.cm TECHNIQUE: Axial images of the chest were obtained without IV contrast. Images were reviewed in the axial, sagittal, and coronal planes. IV contrast was not administered for this examination. Automat ed exposure control was utilized for the study. A dose lowering technique was utilized adhering to t he principles of ALARA. FINDINGS: Tip of endotracheal tube is 2.8 cm above the ivan. There is no pericardial effusion. Mil d cardiomegaly and moderate coronary artery calcification is noted. Lungs are suboptimally assessed d ue to respiratory motion. No pneumothorax or pleural effusion is noted. Moderate bilateral lower lobe airspace opacities are present. There are secretions within the airways. Multiple old bilateral rib fractures are noted. There are also several age indeterminate nondisplaced anterior bilateral rib fra ctures. There is no thoracic lymphadenopathy. Abdomen and pelvis will be reported separately. The eric er is cirrhotic. There is bilateral gynecomastia. IMPRESSION: 1. Satisfactory positioning of the endotracheal tube. 2. Moderate bilateral lower lobe airspace opacities which could reflect pneumonia, aspiration pneumon itis or atelectasis. 3. Mild cardiomegaly and moderate coronary artery calcification. 4. Multiple old bilateral rib fractures. A few age-indeterminate nondisplaced anterior bilateral rib fractures. No pneumothorax. ACT 112: Negative or not required by law. Electronically signed by: Lm Colón M.D. 05/07/2021 6:44 AM
--- NOTE | 2021-05-07 06:51 | CT Scan Report ---
CT OF THE ABDOMEN AND PELVIS WITHOUT CONTRAST CLINICAL HISTORY: Altered mental status. Renal failure. COMPARISON STUDY: No previous studies for comparison. TECHNIQUE: Axial images of the abdomen and pelvis were obtained without IV contrast. Images were revi ewed in the axial, sagittal, and coronal planes. Automated exposure control was utilized for the court dy. A dose lowering technique was utilized adhering to the principles of ALARA. FINDINGS: Please note that the chest CT will be reported separately. There are bilateral lower lobe a irspace opacities. Cardiomegaly is noted. Evaluation of the abdomen and pelvis is suboptimal on this unenhanced examination. The liver is cirrhotic. Sensitivity for detection of hepatic lesions diminish ed but none are identified. Mild splenomegaly is noted. The adrenal glands and kidneys are unremarkab le with the exception of mild bilateral renal cortical thinning. There is no hydronephrosis. No renal , ureteral or bladder calculi are present. Moy balloon is present within the bladder which is colla psed. There is no evidence for a bowel obstruction. No biliary or pancreatic ductal dilatation is not ed. There is trace stranding within the malcolm hepatis. This may be related to cirrhosis. There is a s mall fat and fluid containing umbilical hernia. Fat-containing bilateral inguinal hernias are present . No acute fracture is identified within the lumbar spine or the pelvis. IMPRESSION: 1. No acute process within the abdomen or pelvis on unenhanced exam. 2. Cirrhosis. Mild splenomegaly. 3. No bowel obstruction. 4. Fat and fluid containing umbilical hernia. Fat-containing bilateral inguinal hernias. 5. No urinary calculi. No hydronephrosis. 6. Bilateral lower lobe airspace opacities which may reflect pneumonia, aspiration pneumonitis or ate lectasis. ACT 112: Negative or not required by law. Electronically signed by: Lm Colón M.D. 05/07/2021 6:50 AM
[2021-05-07] MEDS ORDERED: NovoLIN-R INSULIN PER UNIT CHARGE ONE (06:54)
--- NOTE | 2021-05-07 07:23 | Critical Care Consultation ---
Date of Consultation May 07, 2021 Assessment & Plan (1) Acute respiratory failure: (2) Metabolic acidosis: (3) Acute renal failure: (4) Shock circulatory: (5) Hyperkalemia: (6) High anion gap metabolic acidosis: (7) Rhabdomyolysis: --Metabolic encephalopathy Multifactorial Likely acute hypercapnia plus acute renal failure with elevated BUN playing a role along with septic shock Aspiration precautions -- VDRF Likely secondary to acute hypercapnic respiratory failure with septic shock Continue with ventilatory support Keep RASS -1 Daily sedation holidays and SBT's --Acute renal failure with hyperkalemia With severe anion gap metabolic acidosis Likely from lactic acidosis along with elevated BUN and beta hydroxybutyric acid Follow-up urine lites Patient will likely need hemodialysis Nephrology on board Patient got hyperkalemia cocktail --Shock likely septic Continue with antibiotics Vasopressor support to keep MAP greater than 65 --Rhabdomyolysis Likely from being on the floor for a long time Monitor --Diabetes type 2 ICU hypoglycemia protocol --ENRIQUE --Prophylaxis VTE: Heparin GI: Protonix Lines: Right IJ Diet: N.p.o. Plan: We will put HIV catheter Nephrology has been consulted Patient will most likely need dialysis Patient is on vasopressor support right now. Hopefully will be able to dialyze on the vasopressor support if you are not able to then he might need to be transferred to a tertiary care center for CRRT. I have personally spent 64 minutes of critical care time in the direct management of this patient. This is a life/limb threatening event. This includes time spent evaluating patient, direct bedside care, chart review, placing orders, interpretation of diagnostic studies, discussion with consultants, patient, and family members, as well as other required patient management activities. This time is exclusive of all separately billable procedures, and teaching time and separate from and in addition to any other critical care service time. Please note the above document was generated using voice recognition software. It may contain grammatical, syntax or spelling errors. History of Present Illness History of Present Illness 65-year-old male past medical history diabetes, dyslipidemia, left side BKA, ENRIQUE, COPD, history of liver cirrhosis came to the hospital with family because of altered mental status In the ER patient was found to be in acute renal failure. Hypertensive and altered He was intubated in the ER ABG in the ER showed pH of 7.01, he was given 100 mEq of bicarb. He was started on bicarb drip History was obtained from previous records At the time of examination patient was on 0.2 of Levophed peripherally. With maps in the high 60s He was opening his eyes but not following commands He was on propofol 20 He was breathing with the vent. He was given Zosyn and vancomycin. Allergies Allergy/AdvReac Type Severity Reaction Status Date / Time ketorolac Allergy Mild BURNING Verified 05/07/21 15:45 SENSATION ciprofloxacin [From Cipro] AdvReac Intermediate upset Verified 05/07/21 08:26 stomach tramadol AdvReac Intermediate GI UPSET Verified 05/07/21 15:45 Home Medications Medication Instructions Recorded Confirmed Type metoprolol succinate 50 mg 50 mg PO DAILY 11/28/18 11/23/20 History tablet,extended release 24 hr insulin glargine 100 unit/mL (3 20 unit SUBCUT DAILY 12/12/19 11/23/20 History mL) subcutaneous pen (Lantus Solostar U-100 Insulin) metformin 500 mg tablet,extended 1,000 mg PO BID 12/12/19 11/23/20 History release 24 hr ondansetron 4 mg disintegrating 4 mg TRANSLINGUAL Q8 PRN 12/12/19 11/23/20 History tablet pantoprazole 40 mg tablet,delayed 40 mg PO DAILY 11/23/20 11/23/20 History release pregabalin 225 mg capsule 225 mg PO TID 11/23/20 11/23/20 History sertraline 100 mg tablet 100 mg PO DAILY 11/23/20 11/23/20 History thiamine HCl (vitamin B1) 100 mg 100 mg PO DAILY 11/23/20 11/23/20 History tablet (Vitamin B-1) azithromycin 250 mg tablet 250 mg PO QAM #3 tab 11/26/20 Rx losartan 100 mg tablet 50 mg PO DAILY #30 tab 11/26/20 Rx oxycodone 10 mg tablet 15 mg PO Q12H #0 tab 11/26/20 11/23/20 Rx tamsulosin 0.4 mg capsule 0.4 mg PO QAM #30 cap 11/26/20 Rx Patient History Medical History Abdominal pain Acquired claw toe of left foot Acute respiratory failure AARON (acute kidney injury) Altered mental status Anxiety Callus Charcot's joint of right foot Charcot's joint, left ankle and foot Chronic pain Chronic ulcer of left midfoot Depression Diabetes mellitus with diabetic polyneuropathy Diabetic ulcer of left foot DMII (diabetes mellitus, type 2) Fever GERD (gastroesophageal reflux disease) HTN (hypertension) Liver cirrhosis Metabolic encephalopathy Morbid obesity due to excess calories Multiple rib fractures involving four or more ribs Narcotic overdose OA (osteoarthritis) of knee ENRIQUE (obstructive sleep apnea) Shortness of breath Smoker Surgical History (System 05/07/21 @ 08:26 by Stephania Hansen) H/O knee surgery History of bilateral knee replacement S/P AKA (above knee amputation) unilateral Left S/P trigger finger release Family History (System 05/07/21 @ 08:26 by Stephania Hansen) Father Lung cancer Mother Hypertension Dementia Social History (System 05/07/21 @ 08:26 by Stephania Hansen) Smoking Status: Unknown if ever smoked Tobacco Type: Cigarettes Cigarettes Per Day: 20; Second Hand Exposure: No; Preferred Language: Vincentian Communication Ability: Effective Visual Impairment: No Limitations Loan Workout Officer Required: No Beliefs That Will Affect Care: None marital status: Current Living Situation: Family Feels Safe at Home: Yes Assistive Devices: CPAP, Oxygen - at Night and Prosthesis Review of Systems Review of Systems: Unobtainable due to endotracheal tube Physical Exam Physical Exam: Constitutional: No acute distress HEENT: PERRLA, + ETT Respiratory system: Decreased air entry bilaterally, no wheeze, no rhonchi, positive crackles bilateral lower lobes CVS: S1-S2 positive, no murmurs or gallops Abdomen: Soft, nontender, nondistended, positive bowel sounds x4 Extremities: +2 pulses bilaterally radialis/ dorsalis pedis, no cyanosis, +1 pitting edema right lower extremity, left BKA Neuro: Sedated Psych: Unable to assess G/U: Positive Moy Skin: no rashes, warm and dry Lymphatic: no cervical or axillary lymphadenopathy Results & Data Results & Data ([facility]) Vital Signs (Past 12 Hours) Vital Signs Temp Pulse Pulse Resp BP BP Pulse Ox 05/07/21 07:17 98 H 18 99/61 L 98 05/07/21 07:11 98 H 18 99/61 L 98 05/07/21 05:43 91 H 18 94/59 L 97 05/07/21 05:14 94 H 20 94 05/07/21 04:49 89 18 62/40 L 92 05/07/21 03:22 91 H 25 H 92 05/07/21 03:01 34.2 C L 98 H 16 94/33 L 98 05/07/21 03:00 98 05/07/21 02:46 34.2 C L 96 H 18 94/33 L 99 05/07/21 04:04 05/07/21 04:04 Coding Level of Care Code Critical Care 1st 30-74 mins Diagnoses Acute respiratory failure J96.01; J96.02 Respiratory failure complication: hypoxia and hypercapnia Metabolic acidosis E87.2 Acute renal failure N17.9 Acute renal failure type: unspecified Shock circulatory R57.9 Hyperkalemia E87.5 High anion gap metabolic acidosis E87.2 Rhabdomyolysis M62.82 Time Spent (min) 64 (1) Acute renal failure Acute renal failure type: unspecified Qualified Code(s): N17.9 - Acute kidney failure, unspecified (2) Acute respiratory failure Respiratory failure complication: hypoxia and hypercapnia Qualified Code(s): J96.01 - Acute respiratory failure with hypoxia; J96.02 - Acute respiratory failure with hypercapnia
[2021-05-07] MEDS ORDERED: HEPARIN SOD (PORCINE) 1000 UNIT/ML ONE (07:27)
[2021-05-07] MEDS ORDERED: ALBUT/IPRATROP 3MG/0.5MG NEB 3 ML VIAL INH PRN (08:12)
[2021-05-07] MEDS ORDERED: ICU PROTOCOL FOR HYPERGLYCEMIA PRN (08:12)
[2021-05-07] MEDS ORDERED: SODIUM CHLORIDE 0.9% 1000ML 1,000 ML IV SCH (08:30)
[2021-05-07] MEDS ORDERED: HEPARIN SOD 5,000 UNIT/0.5 ML VIAL SQ SCH (09:00)
--- NOTE | 2021-05-07 09:09 | Procedure Note ---
Procedure Note Date of Service May 07, 2021 Note Procedure: Inserting ultrasound-guided dialysis catheter Dietetic Intern: Dr. Arsalan Escobar Indication: Acute renal failure Consent: Informed consent obtained from the right Anesthesia: 1% lidocaine without epinephrine local. Procedure: Consent was verified and timeout performed. Appropriate imaging studies were reviewed prior to the procedure. Under aseptic and sterile condition, right IJ vein was accessed under direct ultrasound guidance. Guidewire was confirmed to be within the lumen of vein with the help of ultrasound. Catheter was introduced via Seldinger technique. Guide a wire was removed. Good non-pulsatile blood flow was appreciated from all the ports. The catheter was placed at 13 cm and sutured in place. BioPatch was applied to the catheter and a sterile Tegaderm dressing was applied over the catheter with careful attention to sterility. Lung sliding was appreciated post procedure with the help ultrasound. Chest x-ray to follow Patient tolerated the procedure well. Blood loss: Less than 2 cc Complications: Less than 2 cc Coding CPT Codes Tubes, Drains, and Vasc Access - Tubes, Drains, and Vasc Access: [id number] Insertion of cannula for hemodialysis ([id number]) Tubes, Drains, and Vasc Access - Tubes, Drains, and Vasc Access: [id number] Ultrasound Guidance For Vascular ([id number]) [facility] Procedure Codes (Charges) Tubes, Drains, and Vasc Access Procedure 1: Tubes, Drains, and Vasc Access: [id number] Insertion of cannula for hemodialysis Procedure 2: Tubes, Drains, and Vasc Access: [id number] Ultrasound Guidance For Vascular
[2021-05-07] MEDS ORDERED: SODIUM CHLORIDE 0.9% 1000ML 1,000 ML IV PRN (09:36)
--- NOTE | 2021-05-07 09:45 | History and Physical Report ---
DATE OF ADMISSION: 05/07/2021. CHIEF COMPLAINT: Unresponsiveness, AARON, severe sepsis. HISTORY OF PRESENT ILLNESS: A 65-year-old male with past medical history significant for type 2 diabetes, history of acute hypercapnic respiratory failure, hyperlipidemia, Charcot feet due to diabetes, diabetic arthropathy, type 2 diabetes, history of hyperkalemia, COPD, obstructive sleep apnea, history of pneumonia, history of emphysema, history of liver cirrhosis, portal hypertension, hypertension, morbid obesity, reflux esophagitis, history of acute kidney injury, history of spinal stenosis, history of cellulitis of right lower extremity, history of left below-knee amputation, history of opioid overdose, anxiety, depression, history of altered mental status, who lives at home with his , was brought in because of unresponsive episode. As per the , he is having cough for a week and he was recently tested for COVID and he was negative and chest x-ray showed possible touch of pneumonia, but he was not prescribed any antibiotics. He also ran out of his pain medications for a few days and started taking his pain medication from last Tuesday. After that, in [facility], he was able to walk fine and he was complaining of some back pain and some leg pain. In the evening around 6:00 p.m., he went to sleep and at 1:00 a.m. in the morning, his noticed that his leg was outside, tried to put his leg back in the bed and tried to wake him up, but he was unresponsive. At that time, EMS was called. Also as per the , he was on BiPAP for a long time, but recently a few months back he bought a new BiPAP machine, which the patient is not tolerating and not using. When the EMS arrived, he was having agonal respirations and oxygen saturation in the 50s. Thus he was intubated in the field and was taken to the ER. In the ER, he was confused, not following commands. He was put on sedation with fentanyl and propofol and was also hypotensive, given 3 liters of fluids and his blood pressure did not come up, so he was started on Levophed. ABG shows severe acidosis and hypercapnia. His potassium was 5.4 and creatinine was 6. He was empirically started on Zosyn and vancomycin. Cultures were obtained. He has had two peripheral lines. It seems the patient has had multiple admissions for respiratory acidosis, and acute kidney injury, hought to be from overmedication. Also the patient seems to be shaking for the last 2 weeks. Currently intubated and sedated. History got from the and from the ER. ALLERGIES: CIPROFLOXACIN, TRAMADOL, KETOROLAC. PAST MEDICAL HISTORY: As mentioned above. PAST SURGICAL HISTORY: Abdominal surgery, left below-knee amputation, colonoscopy, EGD, EGD with biopsy, exploration of the bilateral knee joints, removal of bladder tumor, tonsillectomy, adenoidectomy, inguinal hernia repair, bilateral knee joint replacement. MEDICATIONS: As per [facility], the patient is on Lantus 20 units in the skin daily, metformin 1000 mg p.o. b.i.d., oxycodone 10 mg 1 tablet every 6 hours p.r.n. for pain, OxyContin 20 mg p.o. b.i.d., pregabalin 225 mg p.o. daily, Ozempic 0.25 mg once a week, Lasix 20 mg p.o. daily p.r.n. for edema, sertraline 100 mg p.o. daily, Flomax 0.4 mg daily, Protonix 40 mg p.o. daily, Flonase daily p.r.n., naloxone 0.4 mg p.r.n. for opioid overdose, losartan 100 mg p.o. daily, Zofran 4 mg q. 6 hours p.r.n. FAMILY HISTORY: Significant for father had lung cancer; maternal grandmother had colon cancer, brother has heart disorder; mother has hypertension, dementia. SOCIAL HISTORY: . Quit smoking in 2018, smoked 1 pack a day for 25 years. Used to drink heavily 10 years ago. Currently, drinks two to three beers a day as per the [employer]. Prescription opioid medications. REVIEW OF SYSTEMS: Unobtainable at this time as the patient is intubated and sedated. PHYSICAL EXAMINATION: GENERAL: The patient is morbidly obese, intubated and sedated. VITAL SIGNS: Temperature 34.2, pulse 91, respiratory rate 18, blood pressure 94/59 on pressors. HEENT: Pupils are pinpoint and sluggish to react. NECK: No neck masses. No JVD is seen. CARDIOVASCULAR: S1 and S2 heard. Regular rate and rhythm. No murmur, no gallop. RESPIRATORY SYSTEM: Normal AP diameter. No accessory muscle use. No wheezing, no crackles. ABDOMEN: Soft, bowel sounds sluggish. No distention. CENTRAL NERVOUS SYSTEM: Status post intubated and sedated, not responding to touch stimuli. EXTREMITIES: No edema, no erythema seen. Status post left below-knee amputation. Amputation site, no erythema or drainage seen. LABORATORY DATA: WBC 17.3, hemoglobin 11.9, hematocrit 39.8, platelets 352. PT 11.6, INR 1.2. D-dimer 3650. ABG, pH of 7.07, pCO2 of 60, pO2 of 104, bicarbonate 17, oxygen 96% on 80% FiO2. Sodium 136, potassium 5.4, chloride 104, bicarbonate 16, BUN 48, creatinine 6.3, serum glucose 147. Lactate was 2.4, increased to 3.7, calcium 7.8, ionized calcium 0.9, magnesium 3, total bilirubin 0.4, direct bilirubin 0.2, AST 173, ALT 58, alkaline phosphatase 125. Troponin 1 of 0.02. Lipase 282. Procalcitonin 0.43. Urinalysis, cloudy, +3 protein, +2 bacteria. Stool studies negative. BioFire negative. Toxicology, salicylate less than 1.7. Urine opiates positive. Urine marijuana positive. IMAGING DATA: CT of the chest, satisfactory position of the endotracheal tube. Moderate bilateral lower lobe airspace opacity, which could reflect pneumonia, aspiration pneumonitis, or atelectasis, mild cardiomegaly and moderate coronary artery calcification, multiple old bilateral rib fractures, a few age indeterminate nondisplaced anterior bilateral rib fractures, no pneumothorax. CT of the head, no acute intracranial findings. Chest x-ray: Tip of endotracheal tube 4.3 cm above ivan. Bibasilar opacities which may reflect consolidation or atelectasis, mild cardiomegaly. CT of the abdomen and pelvis, results pending. EKG: Normal sinus rhythm at a rate of 97, nonspecific ST abnormalities seen. Prolonged QT of 518. ASSESSMENT AND PLAN: This is a 65-year-old male who presents with an unresponsive episode. 1. Unresponsiveness: Encephalopathy, most likely secondary to severe sepsis, possibly from pneumonia and or urinary tract infection. Rule out hepatic encephalopathy. Check ammonia levels. CO2 retention, possibly from not using BiPAP and acute kidney injury contributing. Status post intubated and on mechanical ventilation, management as per critical care. Currently requiring pressors. IV fluids. Lactate is 3.7, will follow the repeat lactic acid. Empiric antibiotics, Zosyn, vancomycin, and doxycycline. Follow the cultures. Follow the repeat labs. Follow the response. Closely monitor in the ICU. Will closely monitor the hemodynamics.To Follow ct abd/pelvis. 2. Acute kidney injury: Creatinine of 6.3. Baseline creatinine is 0.7. Follow the CT abdomen and pelvis report. Avoid nephrotoxic agents. Getting fluids . Will follow the repeat labs. Nephrology consult. 3. Hyperkalemia: Potassium of 5.4. Received insulin and also received Kayexalate. Follow the repeat labs. Nephrology consulted. 4. Anion gap metabolic acidosis: Most likely secondary to renal failure. Received a dose of bicarbonate in the ER. Bicarbonate drip as per critical care and Nephrology. Will follow the repeat labs, mostly this is from the septic shock. 5. History of liver cirrhosis: as per [facility] alcohol abuse 10 years ago. Currently drinks 2-3 beers every day as per the [facility] and also morbid obesity, possibly HUNT contributing. Getting fluids. Monitor for volume overload and also follow ammonia levels. Holding his home Lasix, which he gets as needed. 6. History of benign prostatic hypertrophy: On Flomax. Able to give whenever he can take p.o. or from NG tube. 7. Gastroesophageal reflux disease: Will place him on IV Protonix. 8. Hypertension: Currently requiring pressors for hypotension. Will hold his home medication of losartan. Will also hold his losartan for his hyperkalemia and acute kidney injury. Will monitor his blood pressure. 9. Diabetes: Will hold his home Lantus and metformin and Ozempic. For now, will place him on insulin sliding scale. Follow blood sugars closely. 10. Chronic pain. Will hold his home pain medication for now, restart when the patient seems to be getting withdrawal symptoms at reduced dose. 11. History of chronic obstructive pulmonary disease, seems not to be in exacerbation. Will place him on DuoNebs p.r.n. 12. Obstructive sleep apnea: As per the he is using BiPAP for a long time, but few months ago he had a new BiPAP machine, which he is not able to tolerate. Needs to address it before discharge. 13. Morbid obesity: Needs counseling. 14. History of depression: Holding Zoloft for now. 15. Deep venous thrombosis prophylaxis: Heparin subcutaneously. DISPOSITION: Closely monitor in the ICU. Level 1 full code. Job ID: [id number] MTDD
[2021-05-07] MEDS: INSULIN ASPART PER UNIT SC SCH ×4 (09:47→20:13)
[2021-05-07 09:49] LABS: Albumin Globulin Ratio 0.6 (0.9-2); Albumin Level 2.6 gm/dl (3.4-5.0); BUN Creatinine Ratio 8.3 (10-20); Calcium 7.2 mg/dl (8.5-10.1); Creatinine Clr Calc Pharmacy 18.1 ml/min; Est GFR (African American) 10.2 ml/min; Est GFR (Non-African American) 8.8 ml/min; Globulin 4.6 gm/dl (2.5-4.0); Potassium 5.5 mmol/L (3.5-5.1); Total Protein 7.2 gm/dl (6.4-8.2)
[2021-05-07] MEDS: DOXYCYCLINE HYCLATE 100 MG in DEXTROSE 5% 100 ML IV SCH ×2 (10:02→20:12)
[2021-05-07] MEDS: VASOPRESSIN 20 UNITS in 0.9 % SODIUM CHLORIDE 100 ML IV SCH ×3 (10:03→23:51)
--- NOTE | 2021-05-07 10:04 | XRay Report ---
XR chest 1V portable at 9:52 AM CLINICAL HISTORY: Status post line placement. Evaluate for pneumothorax.. COMPARISON STUDY: 05/07/2021 at 2:40 AM TECHNIQUE: 1 view of the chest FINDINGS: Single frontal view of the chest demonstrates the cardiomediastinal silhouette to be within normal li mits. There has been interval placement of a right jugular catheter with its tip in the mid SVC. Ther e is no evidence for pneumothorax. There is also been placement of an NG tube with its tip in the upp er body of the stomach and ET tube is unchanged.. The lungs are clear of alveolar opacities. There campo s been interval development of mild left basilar atelectasis. There is no evidence for pleural effusi on. There is no evidence for vascular congestion. There is no acute osseous pathology. IMPRESSION: Tubes and catheters are in satisfactory position. Interval development of left basilar at electasis. ACT 112: Negative or not required by law. Electronically signed by: Edward Michaels M.D. 05/07/2021 10:03 AM
[2021-05-07 10:05] LABS: Appearance Urine Turbid (Clear); Blood Urine 3+ (Negative); Epithelial Cell Urine Auto >30 /lpf (0-5); Glucose Urine UA Trace (Negative); Ketones Urine Trace (Negative); Leukocyte Esterase Urine 1+ (Negative); Nitrite Urine Positive (Negative); Protein Urine 3+ (Negative); Specific Gravity Urine 1.024 (1.000-1.030); Urobilinogen Urine Negative (Negative)
[2021-05-07 10:07] LABS: Bilirubin Urine 1+ (Negative)
[2021-05-07 10:08] LABS: Color Urine Amber
--- NOTE | 2021-05-07 10:16 | Consultation Report ---
NEPHROLOGY CONSULTATION NOTE DATE OF CONSULTATION: 05/07/2021. REASON FOR CONSULTATION: Severe renal failure. HISTORY OF PRESENT ILLNESS: The patient is a 65-year-old white male who was brought to the hospital yesterday after he was found unresponsive by family members. He was found to be critically ill by th e EMS and was intubated outside the hospital. He is very hypotensive. Blood work was very abnormal with severe renal failure as well as severe acidosis. He was moved over to the intensive care unit w here he is still in on ventilator. He is profoundly hypotensive requiring 2 vasopressors. He has re ceived 4 liters of IV fluids since hospitalization, but has only made about 150 mL of urine. He is f elt to be in septic shock, probably related with pneumonia. CT abdomen did not show any hydronephros is, but did show cirrhosis. PAST MEDICAL HISTORY: Includes type 2 diabetes, hypertension, morbid obesity, dyslipidemia, obstruct justen sleep apnea on CPAP, chronic pain on chronic narcotics, anxiety, depression, left leg amputation. FAMILY HISTORY: Unable to obtain as the patient is intubated under ventilator. SOCIAL HISTORY: He lives with his . Other history not able to obtain at this time. MEDICATIONS: Home medication list was reviewed in detail and is as per the reconciliation list and i ncludes oxycodone, gabapentin, Flomax, metformin, Zofran, Lantus insulin, metoprolol, sertraline, Pro tonix, thiamine, and losartan. ALLERGIES: No known drug allergies. REVIEW OF SYSTEMS: Unable to obtain as the patient is intubated on a ventilator. PHYSICAL EXAMINATION: GENERAL: A middle-aged obese white male who is critically ill at this time. He is on ventilator. H e is on 2 pressors, vasopressin and Levophed, but despite that blood pressure is still very low and w as around 80 systolic at the time of my examination. CHEST: Bilateral decreased breath sound on ventilator. CARDIOVASCULAR: S1 and S2 regular, tachycardic. ABDOMEN: Obese. EXTREMITIES: Show no edema. LABORATORY TEST: Most recent blood gas showed a pH of 7.07, pCO2 of 60, pO2 of 104. CT chest, abdom en and pelvis was reviewed and includes cirrhosis, no hydronephrosis, bilateral pneumonia. Creatinin e at this time is 6.30. His most recent blood work showed a creatinine of 0.58 as of 11/2020. WBC c ount 17,000, hemoglobin 11.9, platelet count 352. Urine shows 3+ protein, cloudy urine, 1+ blood, lo ts of epithelial cells and hyaline cast. ASSESSMENT AND PLAN: A 65-year-old male, most likely with septic shock related with pneumonia. He h as severe renal failure for which I have been consulted. Acute renal failure: The patient is critically ill at this time with severely low blood pressure matt pite being on two vasopressor agents. He is very oliguric and has significant acidosis as well as se kulwinder renal failure. Given this, I do want to do dialysis today for 2-1/2 hours without any ultrafilt ration. For the time being, I will still continue with some IV fluid to help with his septic shock. Continue to monitor input output charting and urine output. Continue to support his hemodynamic sta tus as much as possible. Dialysis need will be assessed on a day by day basis. Obstructive uropathy is already ruled out. No further workup is needed as almost certainly the etiology is acute tubular necrosis. We will continue to follow. Job ID: [id number]
[2021-05-07 10:26] LABS: Potassium Random Urine 31.1 mmol/L; Uric Acid Urine Random 28.2 mg/dl
[2021-05-07 10:42] LABS: Hepatitis B Surface Ab Quant < 3.10 mIU/mL (>or=10mIU/mL Immune); Hepatitis B Surface Antibody Non-Immune
[2021-05-07 10:47] LABS: Bacteria Urine Automated 1+ (Negative); RBC Urine Automated >30 /hpf (0-4)
[2021-05-07 10:49] LABS: Bilirubin,Total 0.6 mg/dl (0.2-1)
[2021-05-07 10:53] LABS: Hepatitis B Surf Ag Rflx Conf Neg (Neg)
[2021-05-07] MEDS: PANTOprazole 40 MG in SYRINGE 0 ML IV SCH (11:10)
[2021-05-07] MEDS ORDERED: MIDAZOLAM HCL 5 MG/ML 10 ML IV ONE (11:37)
[2021-05-07] MEDS ORDERED: fentaNYL citrate 100 MCG/2 ML VIAL IV ONE (11:37)
[2021-05-07 12:23] LABS: iSTAT Allen Test Pass; iSTAT Art Bld Gas pCO2 Correct 59 mmHg (35-46); iSTAT Art Bld Gas pH Corrected 7.176 (7.35-7.45); iSTAT Arterial Blood Gas HCO3 22 meg/L (19-24); iSTAT Arterial Blood Gas pCO2 60 mmHg (35-46); iSTAT Arterial Blood Gas pH 7.17 (7.35-7.45); iSTAT Arterial Blood Gas pO2 98 mmHg (80-95); iSTAT Arterial Blood Gas pO2 C 96; iSTAT Carbon Dioxide 24 mmol/L (24-31); iSTAT FiO2 80 %; iSTAT Hematocrit 40 % (42-52); iSTAT Hemoglobin 13.6 g/dl (14.0-18.0); iSTAT Potassium 4.4 mmol/L (3.3-5.0); iSTAT Site L Radial; iSTAT Sodium 136 mmol/L (135-144)
[2021-05-07] MEDS ORDERED: ACETAMINOPHEN SUSP 325 MG/10.15 ML UDC PO PRN (15:39)
[2021-05-07] MEDS: PIPERACILLIN/TAZOBACTAM 3.375 GM in DEXTROSE 5% 100 ML IV SCH (16:56)
[2021-05-07 17:06] LABS: Albumin Globulin Ratio 0.6 (0.9-2); Albumin Level 2.7 gm/dl (3.4-5.0); BUN Creatinine Ratio 9.3 (10-20); Bilirubin,Total 0.6 mg/dl (0.2-1); Calcium 7.8 mg/dl (8.5-10.1); Creatinine Clr Calc Pharmacy 25.5 ml/min; Est GFR (African American) 17.8 ml/min; Est GFR (Non-African American) 15.4 ml/min; Globulin 4.5 gm/dl (2.5-4.0); Total Protein 7.2 gm/dl (6.4-8.2)
[2021-05-07] MEDS: HEPARIN SOD 5,000 UNIT/0.5 ML VIAL SQ SCH (17:41)
[2021-05-07 18:06] LABS: Potassium 3.7 mmol/L (3.5-5.1)
[2021-05-08] MEDS: HEPARIN SOD 5,000 UNIT/0.5 ML VIAL SQ SCH ×3 (02:53→18:39)
[2021-05-08] MEDS: propofoL 1,000 MG/100 ML VIAL IV SCH ×4 (03:45→21:50)
[2021-05-08] MEDS: PIPERACILLIN/TAZOBACTAM 3.375 GM in DEXTROSE 5% 100 ML IV SCH ×2 (03:46→16:05)
[2021-05-08 04:51] LABS: Eosinophils # (auto) 0.02 K/uL (0-0.5); Eosinophils % (auto) 0.3 %; Hematocrit (blood only) 33.5 % (42-52); Hemoglobin 10.9 g/dL (14.0-18.0); Immature Granulocytes # (auto) 0.01 K/uL (0.00-0.02); Immature Granulocytes % (auto) 0.2 %; Lymphocytes # (auto) 0.89 K/uL (1.2-3.4); Lymphocytes % (auto) 15.4 %; Mean Corpuscular Hemoglobin 28.6 pg (25-34); Mean Corpuscular Hgb Conc 32.5 g/dL (32-36); Mean Corpuscular Volume 87.9 fL (80-100); Mean Platelet Volume 11.4 fL (7.4-10.4); Monocytes # (auto) 0.77 K/uL (0.11-0.59); Monocytes % (auto) 13.3 %; Neutrophils # (auto) 4.09 K/uL (1.4-6.5); Neutrophils % (auto) 70.8 %; Platelet Count 137 K/uL (130-400); RDW Coefficient of Variation 17.5 % (11.5-14.5); RDW Standard Deviation 56.7 fL (36.4-46.3); Red Blood Count 3.81 M/uL (4.7-6.1); White Blood Count 5.78 K/uL (4.8-10.8)
[2021-05-08 05:19] LABS: Albumin Level 2.5 gm/dl (3.4-5.0); BUN Creatinine Ratio 17.8 (10-20); Bilirubin Direct 0.2 mg/dl (0-0.2); Bilirubin,Total 0.4 mg/dl (0.2-1); Calcium 7.9 mg/dl (8.5-10.1); Creatinine Clr Calc Pharmacy 51.6 ml/min; Est GFR (African American) 41.7 ml/min; Magnesium 2.1 mg/dl (1.8-2.4); Phosphorus 2.2 mg/dl (2.5-4.9); Potassium 3.2 mmol/L (3.5-5.1); Total Protein 6.4 gm/dl (6.4-8.2)
[2021-05-08] MEDS ORDERED: Nursing to Pharmacy Communication SCH (07:00)
[2021-05-08 07:30] LABS: iSTAT Allen Test Pass; iSTAT Arterial Blood Gas HCO3 26 meg/L (19-24); iSTAT Arterial Blood Gas pCO2 35 mmHg (35-46); iSTAT Arterial Blood Gas pH 7.48 (7.35-7.45); iSTAT Arterial Blood Gas pO2 73 mmHg (80-95); iSTAT Carbon Dioxide 27 mmol/L (24-31); iSTAT FiO2 30 %; iSTAT Site L Radial
[2021-05-08] MEDS ORDERED: STAT IV Infusion **Titration per Protocol STA (07:44)
[2021-05-08] MEDS ORDERED: POTASSIUM PHOS 3 MMOL/1 ML INFUSION IV STA (07:58)
--- NOTE | 2021-05-08 08:01 | Critical Care Progress Note ---
Date of Service May 08, 2021 Assessment & Plan (1) High anion gap metabolic acidosis: (2) Rhabdomyolysis: Plan: --Metabolic encephalopathy Multifactorial --> improved Likely acute hypercapnia plus acute renal failure with elevated BUN playing a role along with septic shock Aspiration precautions -- VDRF Likely secondary to acute hypercapnic respiratory failure with septic shock Continue with ventilatory support Keep RASS -1 Daily sedation holidays and SBT's --Acute renal failure with hyperkalemia With severe anion gap metabolic acidosis Likely from lactic acidosis along with elevated BUN and beta hydroxybutyric acid S/p hemodialysis 05/07/2021 Patient has started to make urine. --Shock likely septic Continue with antibiotics Vasopressor support to keep MAP greater than 65 --Rhabdomyolysis Likely from being on the floor for a long time Monitor --Diabetes type 2 ICU hypoglycemia protocol --ENRIQUE --Prophylaxis VTE: Heparin GI: Protonix Lines: Right IJ Shiley catheter Diet: Tube feeds Plan: In/out: +2.7 L, urine output 700 and AB.48/35/73 on 30%, PEEP of 5 Hypokalemia and hypophosphatemia being replaced Continue with antibiotics Trial of extubation today to BiPAP We will start the patient on Precedex prior to extubation Kidney function is improving. I do not think patient will need further dialysis. Titrate down vasopressors I have personally spent 36 minutes of critical care time in the direct management of this patient. This is a life/limb threatening event. This includes time spent evaluating patient, direct bedside care, chart review, placing orders, interpretation of diagnostic studies, discussion with consultants, patient, and family members, as well as other required patient management activities. This time is exclusive of all separately billable procedures, and teaching time and separate from and in addition to any other critical care service time. Please note the above document was generated using voice recognition software. It may contain grammatical, syntax or spelling errors. Admission and Anticipated Discharge Date Admission Date: May 07, 2021 Subjective Patient seen and examined at bedside. No acute distress, no dressings overnight Patient is starting to make urine He was on low-dose of Levophed. On propofol and fentanyl He is breathing over the vent Review of Systems Review of Systems: Unobtainable due to endotracheal tube Physical Exam Physical Exam: Constitutional: No acute distress HEENT: PERRLA, + ETT Respiratory system: Decreased air entry bilaterally, no wheeze, no rhonchi, positive crackles bilateral lower lobes CVS: S1-S2 positive, no murmurs or gallops Abdomen: Soft, nontender, nondistended, positive bowel sounds x4, obese Extremities: +2 pulses bilaterally radialis/ dorsalis pedis, no cyanosis, +1 pitting edema right lower extremity, left BKA Neuro: Sedated, breathing over the vent, follows simple commands Psych: Unable to assess G/U: Positive Moy Skin: no rashes, warm and dry Lymphatic: no cervical or axillary lymphadenopathy Results & Data Results & Data ([facility]) Vital Signs (Past 12 Hours) Vital Signs Temp Pulse Resp BP Pulse Ox 05/08/21 06:00 37.7 C H 94 H 26 H 126/97 98 05/08/21 05:30 37.6 C H 99 H 26 H 137/80 98 05/08/21 05:00 37.6 C H 91 H 26 H 144/81 H 98 05/08/21 04:30 37.6 C H 92 H 26 H 144/81 H 97 05/08/21 04:00 37.5 C 95 H 26 H 120/76 97 05/08/21 03:30 37.5 C 94 H 26 H 126/83 97 05/08/21 03:00 37.5 C 96 H 23 132/82 97 05/08/21 02:30 37.6 C H 87 26 H 126/86 97 05/08/21 02:00 37.6 C H 84 23 140/95 97 05/08/21 01:30 37.6 C H 82 23 137/88 97 05/08/21 01:00 37.6 C H 88 26 H 140/87 97 05/08/21 00:30 37.6 C H 88 26 H 139/85 97 05/08/21 00:00 37.7 C H 89 23 140/81 97 05/07/21 23:50 91 H 26 H 97 05/07/21 23:30 37.7 C H 93 H 23 127/82 97 05/07/21 23:00 37.8 C H 95 H 23 136/82 98 05/07/21 22:30 37.9 C H 85 23 133/86 97 05/07/21 22:00 37.9 C H 85 23 130/82 97 05/07/21 21:30 37.9 C H 85 23 129/82 97 05/07/21 21:00 37.9 C H 86 23 134/83 97 05/07/21 20:45 37.9 C H 88 22 95 05/07/21 20:30 37.9 C H 89 26 H 133/82 96 05/07/21 20:15 37.9 C H 87 26 H 96 Laboratory Results 05/08/21 03:54 05/08/21 03:54 Coding Level of Care Code Critical Care 1st 30-74 mins Diagnoses High anion gap metabolic acidosis E87.2 Rhabdomyolysis M62.82 Time Spent (min) 36
[2021-05-08] MEDS: DEXMEDETOMIDINE HCL 200 MCG in SODIUM CHLORIDE 0.9% 48 ML IV SCH ×3 (08:04→15:35)
--- NOTE | 2021-05-08 08:05 | Electrocardiogram Report ---
Test Reason : Blood Pressure : / mmHG Vent. Rate : 097 BPM Atrial Rate : 097 BPM P-R Int : 154 ms QRS Dur : 100 ms QT Int : 408 ms P-R-T Axes : 066 047 123 degrees QTc Int : 518 ms Normal sinus rhythm Nonspecific ST and T wave abnormality Prolonged QT Abnormal ECG No previous ECGs available Confirmed by Eldon Evans ([id number]) on 05/08/2021 8:05:05 AM Referred By: REFERRED SELF Confirmed By:Eldon Evans
[2021-05-08] MEDS: DOXYCYCLINE HYCLATE 100 MG in DEXTROSE 5% 100 ML IV SCH ×2 (08:30→20:50)
[2021-05-08] MEDS ORDERED: POTASSIUM PHOSPHATE 21 MMOL in SODIUM CHLORIDE 0.9% 500 ML IV ONE (08:30)
[2021-05-08] MEDS: PANTOprazole 40 MG in SYRINGE 0 ML IV SCH (10:58)
[2021-05-08] MEDS: VASOPRESSIN 20 UNITS in 0.9 % SODIUM CHLORIDE 100 ML IV SCH ×2 (11:07→20:16)
[2021-05-08] MEDS: INSULIN ASPART PER UNIT SC SCH ×2 (11:16→18:45)
--- NOTE | 2021-05-08 12:39 | Nephrology Progress Note ---
Date of Service May 08, 2021 Assessment & Plan Admission and Anticipated Discharge Date Admission Date: May 07, 2021 Subjective S---Off vent and extubated now. Big increase in urine out. Also renal recovery. Had dialysis one time yesterday--No issues. BP still low though. PHYSICAL EXAMINATION: GENERAL: A middle-aged obese white male who is critically ill at this time. He is on ventilator. He is on 2 pressors, vasopressin and Levophed, but despite that blood pressure is still very low and was around 80 systolic at the time of my examination. CHEST: Bilateral decreased breath sound on ventilator. CARDIOVASCULAR: S1 and S2 regular, tachycardic. ABDOMEN: Obese. EXTREMITIES: Show no edema. LABORATORY TEST: Creat 1.9 today. K low and Phos low ASSESSMENT AND PLAN: A 65-year-old male, most likely with septic shock related with pneumonia. He has severe renal failure for which I have been consulted. Acute renal failure: etiology is acute tubular necrosis in the setting of septic shock. fast recovery--with more urine and creat dropped fast down to 1.9. Most likely no more dialyss. BP still low and will need to support BP. Results & Data ([facility]) Vital Signs (Past 12 Hours) Vital Signs Temp Pulse Pulse Resp BP BP Pulse Ox 05/08/21 12:34 93 H 75/54 L 05/08/21 11:00 37.4 C 94 H 13 103/65 97 05/08/21 10:02 98 H 18 96 05/08/21 10:00 37.3 C 96 H 19 95 05/08/21 09:00 37.5 C 107 H 9 L 98/72 L 94 05/08/21 08:45 109 H 12 95 05/08/21 08:12 05/08/21 08:00 37.8 C H 107 H 20 96 05/08/21 07:10 100 H 29 H 97 05/08/21 07:00 37.8 C H 100 H 26 H 96 05/08/21 06:00 37.7 C H 94 H 26 H 126/97 98 05/08/21 05:30 37.6 C H 99 H 26 H 137/80 98 05/08/21 05:00 37.6 C H 91 H 26 H 144/81 H 98 05/08/21 04:30 37.6 C H 92 H 26 H 144/81 H 97 05/08/21 04:00 37.5 C 95 H 26 H 120/76 97 05/08/21 03:30 37.5 C 94 H 26 H 126/83 97 05/08/21 03:00 37.5 C 96 H 23 132/82 97 05/08/21 02:30 37.6 C H 87 26 H 126/86 97 05/08/21 02:00 37.6 C H 84 23 140/95 97 05/08/21 01:30 37.6 C H 82 23 137/88 97 05/08/21 01:00 37.6 C H 88 26 H 140/87 97 Pulse Ox 05/08/21 12:34 05/08/21 11:00 05/08/21 10:02 05/08/21 10:00 05/08/21 09:00 05/08/21 08:45 05/08/21 08:12 94 05/08/21 08:00 05/08/21 07:10 05/08/21 07:00 05/08/21 06:00 05/08/21 05:30 05/08/21 05:00 05/08/21 04:30 05/08/21 04:00 05/08/21 03:30 05/08/21 03:00 05/08/21 02:30 05/08/21 02:00 05/08/21 01:30 05/08/21 01:00
--- NOTE | 2021-05-08 16:02 | Hospitalist Progress Note ---
Date of Service May 08, 2021 Assessment & Plan (1) Severe sepsis with acute organ dysfunction: Plan: Was brought in with unresponsive episode which required mechanical ventilation Met sepsis criteria on admission -tachycardia, tachypnea , increased white count, increased lactic with hypotension and AARON and required pressor resents Sepsis with likely secondary to pneumonia Appropriate cultures have been taken and he is on intravenous Zosyn and doxycycline Condition seems to be improving and he is extubated Still requiring pressors to maintain blood pressure Appreciate occupational therapist per diem input and 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 (2) Pneumonia: Plan: Has bibasilar infiltration Has been getting intravenous Zosyn and doxycycline Blood cultures are pending (3) Acute respiratory failure: Plan: Secondary to pneumonia and sepsis Required intubation but has been extubated this morning Has been on CPAP and maintaining saturation nicely (4) High anion gap metabolic acidosis: Plan: Secondary to AARON and sepsis (5) Acute renal failure: Plan: Presented with acute renal failure Likely secondary to acute tubular necrosis in the setting of septic shock Appreciate nephrology input and 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 He has been recovering well He has a dialysis yesterday (6) Acute metabolic encephalopathy: Plan: Multifactorial Sepsis. Secondary to pneumonia and AARON (7) Diabetes mellitus with diabetic polyneuropathy: Plan: Has been on SSI Morbid obesity Needs counseling which has been ongoing Sleep apnea and history of COPD He has been on BiPAP History of liver cirrhosis Doubt any hepatic encephalopathy DVT prophylaxis Subcu heparin Admission and Anticipated Discharge Date Admission Date: May 07, 2021 Subjective 05/08/2021 The patient was seen and examined in ICU He was admitted yesterday with unresponsiveness with severe sepsis and AARON He has been extubated this morning and is still requiring pressors to maintain blood pressure Remains extremely weak and lethargic but denies any other significant symptom Review of Systems Review of Systems: All systems reviewed and are unremarkable except as noted below Neurologic: Extremely weak and lethargic Physical Exam Physical Exam: Lying in bed comfortably and now requiring CPAP Constitutional: well developed, well nourished, + ill appearing and + obese Eyes: PERRL, conjunctivae normal, anicteric sclerae ENMT: external ear and nose normal, oropharynx normal Neck: trachea midline, no thyromegaly Respiratory: + respiratory distress (Minimal respiratory distress at rest) Auscultation: + diminished lung sounds and + crackles (Minimal bibasilar crackles) Cardiovascular: Rate/Rhythm: regular rate and regular rhythm; not tachycardic Heart Sounds: normal S1 and normal S2; no murmur Extremities: + edema (Trace edema bilaterally) Gastrointestinal (Abdomen): Inspection/Auscultation: + abdomen distended and normal bowel sounds Percussion/Palpation: abdomen soft; abdomen nontender Musculoskeletal: No acute arthritis in any joint Neurologic: Alert and awake, remains very weak and lethargic. Moving all limbs equally but has left BKA Results & Data Results & Data ([facility]) Vital Signs (Past 12 Hours) Vital Signs Temp Pulse Pulse Resp BP BP Pulse Ox 05/08/21 14:41 99/55 L 05/08/21 14:02 84/50 L 05/08/21 13:00 37.3 C 87 13 100/66 93 05/08/21 12:51 86 92/63 L 05/08/21 12:34 93 H 75/54 L 05/08/21 12:00 37.3 C 92 H 14 97 05/08/21 11:00 37.4 C 94 H 13 103/65 97 05/08/21 10:02 98 H 18 96 05/08/21 10:00 37.3 C 96 H 19 95 05/08/21 09:00 37.5 C 107 H 9 L 98/72 L 94 05/08/21 08:45 109 H 12 95 05/08/21 08:12 05/08/21 08:00 37.8 C H 107 H 20 96 05/08/21 07:10 100 H 29 H 97 05/08/21 07:00 37.8 C H 100 H 26 H 96 05/08/21 06:00 37.7 C H 94 H 26 H 126/97 98 05/08/21 05:30 37.6 C H 99 H 26 H 137/80 98 05/08/21 05:00 37.6 C H 91 H 26 H 144/81 H 98 05/08/21 04:30 37.6 C H 92 H 26 H 144/81 H 97 05/08/21 04:00 37.5 C 95 H 26 H 120/76 97 Pulse Ox 05/08/21 14:41 05/08/21 14:02 05/08/21 13:00 05/08/21 12:51 05/08/21 12:34 05/08/21 12:00 05/08/21 11:00 12/24/21 10:02 05/08/21 10:00 05/08/21 09:00 05/08/21 08:45 05/08/21 08:12 94 05/08/21 08:00 05/08/21 07:10 05/08/21 07:00 05/08/21 06:00 05/08/21 05:30 05/08/21 05:00 05/08/21 04:30 05/08/21 04:00 Laboratory Results Short CBC 05/08/21 Range/Units 03:54 WBC 5.78 D (4.8-10.8) K/uL Hgb 10.9 L (14.0-18.0) g/dL Hct 33.5 L (42-52) % Plt Count 137 D (130-400) K/uL BMP 05/07/21 05/07/21 05/08/21 15:48 17:31 03:54 Sodium 135 L 136 Potassium 3.7 D 3.2 L Chloride 100 101 Carbon Dioxide 24 26 BUN 36 H 34 H Creatinine 3.88 H D 1.92 H D Glucose 135 H 165 H Calcium 7.8 L 7.9 L Liver Function 05/07/21 05/07/21 05/08/21 Range/Units 15:48 17:31 03:54 Total Bilirubin 0.6 0.4 (0.2-1) mg/dl Direct Bilirubin 0.2 (0-0.2) mg/dl AST 212 H 274 H (15-37) U/L ALT 69 71 (12-78) Alkaline Phosphatase 106 88 (45-117) U/L Albumin 2.7 L 2.5 L (3.4-5.0) gm/dl Medications Administered Current Inpatient Medications Acetaminophen (Acetaminophen Susp 325 Mg/10.15 Ml Udc) 650 mg PO Q6H PRN PRN Reason: Fever Stop: 06/06/21 15:38 Last Admin: 05/07/21 17:00 Dose: 650 mg Documented by: Albuterol (Albut/Ipratrop 3mg/0.5mg Neb 3 Ml Vial) 3 ml INH Q4R PRN PRN Reason: Dyspnea Stop: 06/06/21 08:11 Heparin Sodium (Porcine) (Heparin Sod 5,000 Unit/0.5 Ml Vial) 7,500 units SQ Q8@0200,1000,1800 [facility] Stop: 06/06/21 17:59 Last Admin: 05/08/21 10:12 Dose: 7,500 units Documented by: Propofol (Diprivan) 1,000 mg in 100 mls @ 0 mls/hr IV .Q0M [facility]; Protocol Stop: 05/10/21 02:59 Last Titration: 05/08/21 08:23 Dose: 0 mcg/kg/min, 0 mls/hr Documented by: Norepinephrine Bitartrate (Levophed/D5w) 8 mg in 508 mls @ 0 mls/hr IV .Q0M TAMIKO; Protocol Stop: 06/06/21 03:44 Last Titration: 05/08/21 13:54 Dose: 0 mcg/kg/min, 0 mls/hr Documented by: Doxycycline Hyclate 100 mg/ (Dextrose) 110 mls @ 50 mls/hr IV Q12H [facility] Stop: 05/14/21 08:59 Last Infusion: 05/08/21 10:53 Dose: Infused Documented by: Vasopressin 20 units/ Sodium (Chloride) 101 mls @ 12.12 mls/hr IV .Q8H20M [facility] Stop: 06/06/21 08:44 Last Admin: 05/08/21 11:07 Dose: Not Given Documented by: Pantoprazole Sodium 40 mg/ (Syringe) 10 mls @ 5 mls/min IV DAILY@1100 [facility] Stop: 06/06/21 10:59 Last Admin: 05/08/21 10:58 Dose: 5 mls/min Documented by: Dexmedetomidine HCl 200 mcg/ (Sodium Chloride) 50 mls @ 0 mls/hr IV .Q0M [facility]; Protocol Stop: 05/12/21 07:44 Last Admin: 05/08/21 15:35 Dose: Not Given Documented by: Piperacillin Sod/Tazobactam (Sod 3.375 gm/ Dextrose) 115 mls @ 28.75 mls/hr IV Q8H [facility]; Protocol Stop: 05/14/21 15:59 Insulin Aspart (Insulin Aspart Per Unit) 0 units SC Q6 [facility] Stop: 06/07/21 11:59 Last Admin: 05/08/21 11:16 Dose: Not Given Documented by: Miscellaneous (Icu Protocol For Hyperglycemia) 1 ea N/A PRN PRN; Protocol PRN Reason: Hyperglycemia Protocol Stop: 05/09/21 08:11 Miscellaneous Information (Piperacill/Tazobac Consult Active) 1 ea N/A UD PRN PRN Reason: Consult Stop: 06/06/21 04:47 (1) Acute respiratory failure Respiratory failure complication: hypoxia and hypercapnia Qualified Code(s): J96.01 - Acute respiratory failure with hypoxia; J96.02 - Acute respiratory failure with hypercapnia (2) Acute renal failure Acute renal failure type: unspecified Qualified Code(s): N17.9 - Acute kidney failure, unspecified
[2021-05-08] MEDS: oxyCODONE HCL IR 5 MG TAB (IMMEDIATE RELEASE) PO PRN (21:17)
[2021-05-09] MEDS: PIPERACILLIN/TAZOBACTAM 3.375 GM in DEXTROSE 5% 100 ML IV SCH ×4 (00:51→23:57)
[2021-05-09] MEDS: propofoL 1,000 MG/100 ML VIAL IV SCH ×2 (00:51→02:41)
[2021-05-09] MEDS: INSULIN ASPART PER UNIT SC SCH ×5 (01:21→21:20)
[2021-05-09] MEDS: HEPARIN SOD 5,000 UNIT/0.5 ML VIAL SQ SCH ×3 (01:22→17:48)
[2021-05-09] MEDS: VASOPRESSIN 20 UNITS in 0.9 % SODIUM CHLORIDE 100 ML IV SCH (01:22)
[2021-05-09 04:34] LABS: Hematocrit (blood only) 32.9 % (42-52); Hemoglobin 10.7 g/dL (14.0-18.0); Mean Corpuscular Hemoglobin 28.9 pg (25-34); Mean Corpuscular Hgb Conc 32.5 g/dL (32-36); Mean Corpuscular Volume 88.9 fL (80-100); RDW Coefficient of Variation 17.6 % (11.5-14.5); RDW Standard Deviation 57.3 fL (36.4-46.3)
[2021-05-09] MEDS: oxyCODONE HCL IR 5 MG TAB (IMMEDIATE RELEASE) PO PRN ×4 (04:34→23:55)
[2021-05-09 04:54] LABS: Mean Platelet Volume 10.4 fL (7.4-10.4); Platelet Count 94 K/uL (130-400)
[2021-05-09 04:55] LABS: Eosinophils # (auto) 0.05 K/uL (0-0.5); Immature Granulocytes # (auto) 0.02 K/uL (0.00-0.02); Immature Granulocytes % (auto) 0.4 %; Lymphocytes # (auto) 1.07 K/uL (1.2-3.4); Lymphocytes % (auto) 22.3 %; Monocytes # (auto) 0.56 K/uL (0.11-0.59); Monocytes % (auto) 11.7 %; Neutrophils % (auto) 64.6 %; Platelet Estimate Decreased (Normal); RBC Morphology Unremarkable
[2021-05-09 05:08] LABS: Albumin Level 2.4 gm/dl (3.4-5.0); Bilirubin Direct 0.5 mg/dl (0-0.2); Bilirubin,Total 1.1 mg/dl (0.2-1); Calcium 8.4 mg/dl (8.5-10.1); Creatinine Clr Calc Pharmacy 116.6 ml/min; Est GFR (African American) 106.7 ml/min; Est GFR (Non-African American) 92.1 ml/min; Magnesium 2.2 mg/dl (1.8-2.4); Phosphorus 1.3 mg/dl (2.5-4.9); Potassium 3.3 mmol/L (3.5-5.1); Total Protein 6.6 gm/dl (6.4-8.2)
[2021-05-09] MEDS ORDERED: POTASSIUM PHOS 3 MMOL/1 ML INFUSION IV STA ×2 (07:55→08:49)
--- NOTE | 2021-05-09 07:59 | Critical Care Progress Note ---
Date of Service May 09, 2021 Assessment & Plan (1) High anion gap metabolic acidosis: (2) Rhabdomyolysis: Plan: --Metabolic encephalopathy Multifactorial --> improved Likely acute hypercapnia plus acute renal failure with elevated BUN playing a role along with septic shock Aspiration precautions --S/p VDRF Extubated 05/08/2021 Likely secondary to acute hypercapnic respiratory failure with septic shock Continue with O2 supplementation to keep oxygen around 88-92% --Acute renal failure with hyperkalemia With severe anion gap metabolic acidosis Likely from lactic acidosis along with elevated BUN and beta hydroxybutyric acid S/p hemodialysis 05/07/2021 Patient has started to make urine. --Shock likely septic Continue with antibiotics Vasopressor support to keep MAP greater than 65 --Rhabdomyolysis Improving Likely from being on the floor for a long time Monitor --Diabetes type 2 ICU hypoglycemia protocol --ENRIQUE Continue with CPAP nightly and as needed shortness of breath --Prophylaxis VTE: Heparin GI: Protonix Lines: Right IJ Shiley catheter Diet: Tube feeds Plan: In/out: -2.8 L, urine output 4175 Hypokalemia and hypophosphatemia being replaced Continue with antibiotics for total of 7 days Patient has been off vasopressors since 3 AM. Patient is gabapentin as well as oxycodone has been restarted I think patient is hemodynamically stable to be downgraded to medical floor. We will remove Shiley catheter prior to downgrade Please note the above document was generated using voice recognition software. It may contain grammatical, syntax or spelling errors.Any formal questions or concerns about the content, text or information contained within the body of this dictation should be directly addressed to the provider for clarification. Admission and Anticipated Discharge Date Admission Date: May 07, 2021 Subjective Patient seen and examined at bedside. No acute distress, no adverse events overnight He has been off of vasopressor since 3 AM. At time of examination patient map was in the 70s Denies any headache, no shortness of breath No nausea or vomiting Fair appetite Has been urinating well. Review of Systems Review of Systems: All systems reviewed & are unremarkable except as noted in Subjective Physical Exam Physical Exam: Constitutional: No acute distress HEENT: PERRLA, EOMI Respiratory system: Decreased air entry bilaterally, no wheeze, no rhonchi, positive crackles bilateral lower lobes CVS: S1-S2 positive, no murmurs or gallops Abdomen: Soft, nontender, nondistended, positive bowel sounds x4, obese Extremities: +2 pulses bilaterally radialis/ dorsalis pedis, no cyanosis, +1 pitting edema right lower extremity, left BKA Neuro: Awake alert oriented x3 Psych: Normal mood and affect G/U: Positive Moy Skin: no rashes, warm and dry Lymphatic: no cervical or axillary lymphadenopathy Results & Data Results & Data ([facility]) Vital Signs (Past 12 Hours) Vital Signs Temp Pulse Resp BP Pulse Ox 05/09/21 02:30 37.2 C 89 12 95 05/09/21 02:00 37.2 C 85 14 130/87 97 05/09/21 01:30 37.2 C 75 13 85 L 05/09/21 01:00 37.2 C 87 168/94 H 96 05/09/21 00:30 37.2 C 84 158/86 H 98 05/09/21 00:00 37.3 C 86 130/69 97 05/08/21 23:30 37.3 C 90 153/90 H 98 05/08/21 23:00 37.3 C 87 156/85 H 98 05/08/21 22:30 37.4 C 96 H 127/87 05/08/21 22:00 37.4 C 88 148/82 H 05/08/21 21:30 37.4 C 86 154/80 H 100 05/08/21 21:00 37.4 C 87 139/79 100 05/08/21 20:30 37.4 C 89 17 124/98 100 05/08/21 20:00 37.4 C 89 12 129/82 99 Laboratory Results 05/09/21 04:18 05/09/21 04:18 Coding Level of Care Code 27173 Subseq Hosp Care Lvl 3 Diagnoses High anion gap metabolic acidosis E87.2 Rhabdomyolysis M62.82
[2021-05-09] MEDS ORDERED: POTASSIUM PHOSPHATE 21 MMOL in SODIUM CHLORIDE 0.9% 500 ML IV ONE (08:15)
[2021-05-09] MEDS: DOXYCYCLINE HYCLATE 100 MG in DEXTROSE 5% 100 ML IV SCH ×2 (08:18→21:30)
[2021-05-09] MEDS ORDERED: POTASSIUM PHOSPHATE 30 MMOL in SODIUM CHLORIDE 0.9% 500 ML IV ONE (09:00)
[2021-05-09] MEDS: NOREPINEPHRINE/D5W 8 MG/508 ML BAG IV SCH (09:48)
[2021-05-09] MEDS: PANTOprazole 40 MG TAB PO SCH (10:31)
[2021-05-09] MEDS: THIAMINE HCL 100 MG TAB PO SCH (10:31)
[2021-05-09] MEDS: TAMSULOSIN HCL 0.4 MG CAP PO SCH (10:31)
[2021-05-09] MEDS ORDERED: Nursing to Pharmacy Communication SCH (11:00)
[2021-05-09] MEDS: INSULIN GLARGINE SOLOSTAR 100 UNITS/ML 3 ML PEN SQ SCH (11:22)
[2021-05-09 12:00] LABS: Codeine Urine NEGATIVE ng/mL (<50); Hydrocodone Urine NEGATIVE ng/mL (<50); Hydromor Urine NEGATIVE ng/mL (<50); Marijuana Quant, GCMS Urine 9 ng/mL (<5); Morphine Urine NEGATIVE ng/mL (<50); Norhydrocodone Conf Ur NEGATIVE ng/mL (<50); Noroxycodone Urine >10000 ng/mL (<50); Oxycodone Urine >10000 ng/mL (<50); Oxymorph Urine 5540 ng/mL (<50)
[2021-05-09] MEDS: PREGABALIN 75 MG CAP PO SCH ×2 (13:28→23:54)
--- NOTE | 2021-05-09 14:01 | Hospitalist Progress Note ---
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 and 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 He has been feeling much better and remains afebrile with normalization of the white count His blood and urine cultures have been negative He is off pressor agents and has been back on his home medications-transfer to [facility] telemetry unit for continuation of care We will get PT and OT evaluation and possible discharge on Tuesday Electrolytes imbalance Has low potassium and low phosphate Has been getting supplement and will recheck (2) Pneumonia: Plan: Has bibasilar infiltration Has been getting intravenous Zosyn and doxycycline Blood cultures are pending-negative We will continue current antibiotic with transformation to oral on discharge (3) Acute respiratory failure: Plan: Secondary to pneumonia and sepsis Required intubation but has been extubated this morning Has been on CPAP and maintaining saturation nicely Saturating normally on room air (4) High anion gap metabolic acidosis: Plan: Secondary to AARON and sepsis Resolved (5) Acute renal failure: Plan: Presented with acute renal failure Likely secondary to acute tubular necrosis in the setting of septic shock Appreciate nephrology input and 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 He has been recovering well He has a dialysis yesterday Resolved AARON (6) Acute metabolic encephalopathy: Plan: Multifactorial Sepsis. Secondary to pneumonia and AARON (7) Diabetes mellitus with diabetic polyneuropathy: Plan: Has been on SSI Morbid obesity Needs counseling which has been ongoing Sleep apnea and history of COPD He has been on BiPAP History of liver cirrhosis Doubt any hepatic encephalopathy DVT prophylaxis Subcu heparin Admission and Anticipated Discharge Date Admission Date: May 07, 2021 Subjective 05/08/2021 The patient was seen and examined in ICU He was admitted yesterday with unresponsiveness with severe sepsis and AARON He has been extubated this morning and is still requiring pressors to maintain blood pressure Remains extremely weak and lethargic but denies any other significant symptom 05/09/2021 The patient was seen and examined in ICU He has been feeling a lot better and wants to have his home medications so that he does not go on to withdrawal He wants to go home Review of Systems Review of Systems: All systems reviewed and are unremarkable except as noted below Neurologic: Extremely weak and lethargic Physical Exam Physical Exam: Lying in bed comfortably and now saturating on room air Constitutional: well developed, well nourished, + ill appearing and + obese Eyes: PERRL, conjunctivae normal, anicteric sclerae ENMT: external ear and nose normal, oropharynx normal Neck: trachea midline, no thyromegaly Respiratory: + respiratory distress (Minimal respiratory distress at rest) Auscultation: + diminished lung sounds and + crackles (Minimal bibasilar crackles) Cardiovascular: Rate/Rhythm: regular rate and regular rhythm; not tachycardic Heart Sounds: normal S1 and normal S2; no murmur Extremities: + edema (Trace edema bilaterally) Gastrointestinal (Abdomen): Inspection/Auscultation: + abdomen distended and normal bowel sounds Percussion/Palpation: abdomen soft; abdomen nontender Musculoskeletal: No acute arthritis in any joint though he has chronic pain Neurologic: Alert, awake and oriented x3. No focal sensory and motor deficit appreciated Lymphatic: no cervical or axillary lymphadenopathy Results & Data Results & Data ([facility]) Vital Signs (Past 12 Hours) Vital Signs Temp Pulse Pulse Resp BP BP Pulse Ox 05/09/21 13:17 36.5 C 86 16 146/77 H 95 05/09/21 08:00 05/09/21 02:30 37.2 C 89 12 95 05/09/21 02:00 37.2 C 85 14 130/87 97 Pulse Ox 05/09/21 13:17 05/09/21 08:00 97 05/09/21 02:30 05/09/21 02:00 Laboratory Results Short CBC 05/09/21 Range/Units 04:18 WBC 4.80 (4.8-10.8) K/uL Hgb 10.7 L (14.0-18.0) g/dL Hct 32.9 L (42-52) % Plt Count 94 L (130-400) K/uL BMP 05/09/21 04:18 Sodium 140 Potassium 3.3 L Chloride 107 Carbon Dioxide 30 BUN 25 H Creatinine 0.85 D Glucose 128 H Calcium 8.4 L Liver Function 05/09/21 Range/Units 04:18 Total Bilirubin 1.1 H D (0.2-1) mg/dl Direct Bilirubin 0.5 H D (0-0.2) mg/dl AST 277 H (15-37) U/L ALT 83 H (12-78) Alkaline Phosphatase 92 (45-117) U/L Albumin 2.4 L (3.4-5.0) gm/dl Medications Administered Current Inpatient Medications Acetaminophen (Acetaminophen Susp 325 Mg/10.15 Ml Udc) 650 mg PO Q6H PRN PRN Reason: Fever Stop: 06/06/21 15:38 Last Admin: 05/07/21 17:00 Dose: 650 mg Documented by: Albuterol (Albut/Ipratrop 3mg/0.5mg Neb 3 Ml Vial) 3 ml INH Q4R PRN PRN Reason: Dyspnea Stop: 06/06/21 08:11 Heparin Sodium (Porcine) (Heparin Sod 5,000 Unit/0.5 Ml Vial) 7,500 units SQ Q8@0200,1000,1800 [facility] Stop: 06/06/21 17:59 Last Admin: 05/09/21 10:31 Dose: 7,500 units Documented by: Doxycycline Hyclate 100 mg/ (Dextrose) 110 mls @ 50 mls/hr IV Q12H [facility] Stop: 05/14/21 08:59 Last Infusion: 05/09/21 10:42 Dose: Infused Documented by: Piperacillin Sod/Tazobactam (Sod 3.375 gm/ Dextrose) 115 mls @ 28.75 mls/hr IV Q8H [facility]; Protocol Stop: 05/14/21 15:59 Last Infusion: 05/09/21 12:25 Dose: Infused Documented by: Insulin Aspart (Insulin Aspart Per Unit) 0 units SC ACHS [facility] Stop: 06/08/21 11:29 Last Admin: 05/09/21 11:51 Dose: Not Given Documented by: Insulin Glargine (Insulin Glargine Solostar 100 Units/Ml 3 Ml Pen) 20 units SQ DAILY [facility] Stop: 06/08/21 09:29 Last Admin: 05/09/21 11:22 Dose: 20 units Documented by: Metoprolol Succinate (Metoprolol Succ 50mg Ext Rel Tab) 50 mg PO DAILY [facility] Stop: 06/09/21 08:59 Miscellaneous Information (Piperacill/Tazobac Consult Active) 1 ea N/A UD PRN PRN Reason: Consult Stop: 06/06/21 04:47 Oxycodone HCl (Oxycodone Hcl Ir 5 Mg Tab (Immediate Release)) 5 mg PO Q6H PRN PRN Reason: Pain Stop: 05/22/21 20:47 Last Admin: 05/09/21 10:30 Dose: 5 mg Documented by: Pantoprazole Sodium (Pantoprazole 40 Mg Tab) 40 mg PO DAILY [facility] Stop: 06/08/21 09:29 Last Admin: 05/09/21 10:31 Dose: 40 mg Documented by: Pregabalin (Pregabalin 75 Mg Cap) 225 mg PO TID [facility] Stop: 06/08/21 13:59 Last Admin: 05/09/21 13:28 Dose: 225 mg Documented by: Sertraline HCl (Sertraline Hcl 100 Mg Tablet) 100 mg PO DAILY [facility] Stop: 06/09/21 08:59 Tamsulosin HCl (Tamsulosin Hcl 0.4 Mg Cap) 0.4 mg PO QAM [facility] Stop: 06/08/21 09:29 Last Admin: 05/09/21 10:31 Dose: 0.4 mg Documented by: Thiamine HCl (Thiamine Hcl 100 Mg Tab) 100 mg PO DAILY [facility] Stop: 06/08/21 09:29 Last Admin: 05/09/21 10:31 Dose: 100 mg Documented by: (1) Acute respiratory failure Respiratory failure complication: hypoxia and hypercapnia Qualified Code(s): J96.01 - Acute respiratory failure with hypoxia; J96.02 - Acute respiratory failure with hypercapnia (2) Acute renal failure Acute renal failure type: unspecified Qualified Code(s): N17.9 - Acute kidney failure, unspecified
[2021-05-10] MEDS: HEPARIN SOD 5,000 UNIT/0.5 ML VIAL SQ SCH ×3 (04:03→16:10)
[2021-05-10] MEDS: oxyCODONE HCL IR 5 MG TAB (IMMEDIATE RELEASE) PO PRN ×3 (06:00→18:04)
[2021-05-10 06:51] LABS: Hematocrit (blood only) 31.3 % (42-52); Hemoglobin 9.9 g/dL (14.0-18.0); Mean Corpuscular Hgb Conc 31.6 g/dL (32-36); Mean Corpuscular Volume 88.7 fL (80-100); RDW Coefficient of Variation 17.4 % (11.5-14.5); RDW Standard Deviation 56.6 fL (36.4-46.3); Red Blood Count 3.53 M/uL (4.7-6.1); White Blood Count 3.46 K/uL (4.8-10.8)
[2021-05-10 07:26] LABS: Mean Platelet Volume 11.8 fL (7.4-10.4); Platelet Count 95 K/uL (130-400)
[2021-05-10 07:27] LABS: Eosinophils # (auto) 0.08 K/uL (0-0.5); Eosinophils % (auto) 2.3 %; Immature Granulocytes # (auto) 0.01 K/uL (0.00-0.02); Immature Granulocytes % (auto) 0.3 %; Lymphocytes # (auto) 0.93 K/uL (1.2-3.4); Lymphocytes % (auto) 26.9 %; Monocytes # (auto) 0.34 K/uL (0.11-0.59); Monocytes % (auto) 9.8 %; Neutrophils % (auto) 60.7 %
[2021-05-10 07:29] LABS: Albumin Level 2.4 gm/dl (3.4-5.0); BUN Creatinine Ratio 25.2 (10-20); Bilirubin Direct 0.4 mg/dl (0-0.2); Bilirubin,Total 0.9 mg/dl (0.2-1); Calcium 8.6 mg/dl (8.5-10.1); Creatinine Clr Calc Pharmacy 165.1 ml/min; Est GFR (African American) 123.2 ml/min; Est GFR (Non-African American) 106.3 ml/min; Phosphorus 1.7 mg/dl (2.5-4.9); Potassium 3.3 mmol/L (3.5-5.1); Total Protein 6.4 gm/dl (6.4-8.2)
[2021-05-10] MEDS: INSULIN ASPART PER UNIT SC SCH ×4 (08:16→20:47)
[2021-05-10] MEDS ORDERED: POTASSIUM PHOS 3 MMOL/1 ML INFUSION IV STA (08:17)
[2021-05-10] MEDS: INSULIN GLARGINE SOLOSTAR 100 UNITS/ML 3 ML PEN SQ SCH (08:28)
[2021-05-10] MEDS: THIAMINE HCL 100 MG TAB PO SCH (08:40)
[2021-05-10] MEDS: SERTRALINE HCL 100 MG TABLET PO SCH (08:40)
[2021-05-10] MEDS: TAMSULOSIN HCL 0.4 MG CAP PO SCH (08:40)
[2021-05-10] MEDS: PANTOprazole 40 MG TAB PO SCH (08:40)
[2021-05-10] MEDS: METOPROLOL SUCC 50MG EXT REL TAB PO SCH (08:40)
[2021-05-10] MEDS: PREGABALIN 75 MG CAP PO SCH ×3 (08:41→20:49)
[2021-05-10] MEDS: DOXYCYCLINE HYCLATE 100 MG in DEXTROSE 5% 100 ML IV SCH ×2 (08:43→21:02)
[2021-05-10] MEDS: PIPERACILLIN/TAZOBACTAM 3.375 GM in DEXTROSE 5% 100 ML IV SCH ×2 (08:44→16:10)
[2021-05-10] MEDS ORDERED: POTASSIUM PHOSPHATE 40 MMOL in SODIUM CHLORIDE 0.9% 1000ML 1,000 ML IV ONE (08:45)
--- NOTE | 2021-05-10 12:57 | Hospitalist Progress Note ---
Date of Service May 10, 2021 Assessment & Plan (1) Severe sepsis with acute organ dysfunction: Plan: Was brought in with unresponsive episode which required mechanical ventilation Met sepsis criteria on admission -tachycardia, tachypnea , increased white count, increased lactic with hypotension and AARON and required pressor agents Sepsis with likely secondary to pneumonia Appropriate cultures have been taken and he is on intravenous Zosyn and doxycycline Condition seems to be improving and he is extubated Still requiring pressors to maintain blood pressure Appreciate beam worker input and 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 He has been feeling much better and remains afebrile with normalization of the white count His blood and urine cultures have been negative He is off pressor agents and has been back on his home medications-transfer to [facility] telemetry unit for continuation of care We will get PT and OT evaluation and possible discharge on Tuesday Clinically much better , denies any fever and/or chills and the weakness has been improving Electrolytes imbalance Has low potassium and low phosphate Has been getting supplement and will recheck Potassium and phosphate remain low and will be supplemented We will recheck tomorrow (2) Pneumonia: Plan: Has bibasilar infiltration Has been getting intravenous Zosyn and doxycycline Blood cultures are pending-negative We will continue current antibiotic with transformation to oral on discharge We will continue IV antibiotic for now (3) Acute respiratory failure: Plan: Secondary to pneumonia and sepsis Required intubation but has been extubated this morning Has been on CPAP and maintaining saturation nicely Saturating normally on room air (4) High anion gap metabolic acidosis: Plan: Secondary to AARON and sepsis Resolved (5) Acute renal failure: Plan: Presented with acute renal failure Likely secondary to acute tubular necrosis in the setting of septic shock Appreciate nephrology input and 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 He has been recovering well He has a dialysis yesterday Resolved AARON Will discontinue central line (6) Acute metabolic encephalopathy: Plan: Multifactorial Sepsis. Secondary to pneumonia and AARON (7) Diabetes mellitus with diabetic polyneuropathy: Plan: Has been on SSI Morbid obesity Needs counseling which has been ongoing Sleep apnea and history of COPD He has been on BiPAP History of liver cirrhosis Doubt any hepatic encephalopathy DVT prophylaxis Subcu heparin Admission and Anticipated Discharge Date Admission Date: May 07, 2021 Subjective 05/08/2021 The patient was seen and examined in ICU He was admitted yesterday with unresponsiveness with severe sepsis and AARON He has been extubated this morning and is still requiring pressors to maintain blood pressure Remains extremely weak and lethargic but denies any other significant symptom 05/09/2021 The patient was seen and examined in ICU He has been feeling a lot better and wants to have his home medications so that he does not go on to withdrawal He wants to go home 05/10/2021 The patient was seen and examined in medical telemetry unit He has been feeling a lot better and only complains to have swelling of the right upper extremity He denies any more confusion, pain and/or shortness of breath Review of Systems Review of Systems: All systems reviewed and are unremarkable except as noted below Neurologic: Remains weak but has been improving Physical Exam Physical Exam: Lying in bed comfortably and now saturating on room air Constitutional: well developed, well nourished, + ill appearing and + obese Eyes: PERRL, conjunctivae normal, anicteric sclerae ENMT: external ear and nose normal, oropharynx normal Neck: trachea midline, no thyromegaly Respiratory: + respiratory distress (Minimal respiratory distress at rest) Auscultation: + diminished lung sounds and + crackles (Minimal bibasilar crackles) Cardiovascular: Rate/Rhythm: regular rate and regular rhythm; not tachycardic Heart Sounds: normal S1 and normal S2; no murmur Extremities: + edema (Tr jennyfer edema bilaterally) Gastrointestinal (Abdomen): Inspection/Auscultation: + abdomen distended and normal bowel sounds Percussion/Palpation: abdomen soft; abdomen nontender Musculoskeletal: No acute arthritis in any joint. Right upper extremity is swollen Neurologic: Alert, awake and oriented x3. No focal sensory and motor deficit appreciated Lymphatic: no cervical or axillary lymphadenopathy Results & Data Results & Data ([facility]) Vital Signs (Past 12 Hours) Vital Signs Temp Pulse Pulse Resp BP BP Pulse Ox 05/10/21 11:00 36.4 C L 77 20 153/71 H 96 05/10/21 08:00 36.7 C 82 80 20 122/77 97 05/10/21 03:03 36.6 C 84 18 133/70 96 Laboratory Results Short CBC 05/10/21 Range/Units 06:09 WBC 3.46 L (4.8-10.8) K/uL Hgb 9.9 L (14.0-18.0) g/dL Hct 31.3 L (42-52) % Plt Count 95 L (130-400) K/uL BMP 05/10/21 06:09 Sodium 141 Potassium 3.3 L Chloride 106 Carbon Dioxide 30 BUN 15 Creatinine 0.60 Glucose 93 Calcium 8.6 Liver Function 05/10/21 Range/Units 06:09 Total Bilirubin 0.9 (0.2-1) mg/dl Direct Bilirubin 0.4 H (0-0.2) mg/dl AST 169 H (15-37) U/L ALT 75 (12-78) Alkaline Phosphatase 99 (45-117) U/L Albumin 2.4 L (3.4-5.0) gm/dl Medications Administered Current Inpatient Medications Acetaminophen (Acetaminophen Susp 325 Mg/10.15 Ml Udc) 650 mg PO Q6H PRN PRN Reason: Fever Stop: 06/06/21 15:38 Last Admin: 05/07/21 17:00 Dose: 650 mg Documented by: Albuterol (Albut/Ipratrop 3mg/0.5mg Neb 3 Ml Vial) 3 ml INH Q4R PRN PRN Reason: Dyspnea Stop: 06/06/21 08:11 Heparin Sodium (Porcine) (Heparin Sod 5,000 Unit/0.5 Ml Vial) 7,500 units SQ Q8@0200,1000,1800 [facility] Stop: 06/06/21 17:59 Last Admin: 05/10/21 08:40 Dose: 7,500 units Documented by: Doxycycline Hyclate 100 mg/ (Dextrose) 110 mls @ 50 mls/hr IV Q12H [facility] Stop: 05/14/21 08:59 Last Infusion: 05/10/21 12:46 Dose: Infused Documented by: Piperacillin Sod/Tazobactam (Sod 3.375 gm/ Dextrose) 115 mls @ 28.75 mls/hr IV Q8H [facility]; Protocol Stop: 05/14/21 15:59 Last Infusion: 05/10/21 11:00 Dose: 28.8 mls/hr Documented by: Potassium Phosphate 40 mmol/ (Sodium Chloride) 1,013.3333 mls @ 100 mls/hr IV 0845 ONE Stop: 05/10/21 18:52 Last Infusion: 05/10/21 11:10 Dose: 100 mls/hr Documented by: Insulin Aspart (Insulin Aspart Per Unit) 0 units SC ACHS [facility] Stop: 06/08/21 11:29 Last Admin: 05/10/21 11:38 Dose: Not Given Documented by: Insulin Glargine (Insulin Glargine Solostar 100 Units/Ml 3 Ml Pen) 20 units SQ DAILY TAMIKO Stop: 06/08/21 09:29 Last Admin: 05/10/21 08:28 Dose: 20 units Documented by: Metoprolol Succinate (Metoprolol Succ 50mg Ext Rel Tab) 50 mg PO DAILY TAMIKO Stop: 06/09/21 08:59 Last Admin: 05/10/21 08:40 Dose: 50 mg Documented by: Miscellaneous Information (Piperacill/Tazobac Consult Active) 1 ea N/A UD PRN PRN Reason: Consult Stop: 06/06/21 04:47 Oxycodone HCl (Oxycodone Hcl Ir 5 Mg Tab (Immediate Release)) 5 mg PO Q6H PRN PRN Reason: Pain Stop: 05/22/21 20:47 Last Admin: 05/10/21 12:12 Dose: 5 mg Documented by: Pantoprazole Sodium (Pantoprazole 40 Mg Tab) 40 mg PO DAILY TAMIKO Stop: 06/08/21 09:29 Last Admin: 05/10/21 08:40 Dose: 40 mg Documented by: Pregabalin (Pregabalin 75 Mg Cap) 225 mg PO TID [facility] Stop: 06/08/21 13:59 Last Admin: 05/10/21 08:41 Dose: 225 mg Documented by: Sertraline HCl (Sertraline Hcl 100 Mg Tablet) 100 mg PO DAILY [facility] Stop: 06/09/21 08:59 Last Admin: 05/10/21 08:40 Dose: 100 mg Documented by: Tamsulosin HCl (Tamsulosin Hcl 0.4 Mg Cap) 0.4 mg PO QAM [facility] Stop: 06/08/21 09:29 Last Admin: 05/10/21 08:40 Dose: 0.4 mg Documented by: Thiamine HCl (Thiamine Hcl 100 Mg Tab) 100 mg PO DAILY [facility] Stop: 06/08/21 09:29 Last Admin: 05/10/21 08:40 Dose: 100 mg Documented by: (1) Acute respiratory failure Respiratory failure complication: hypoxia and hypercapnia Qualified Code(s): J96.01 - Acute respiratory failure with hypoxia; J96.02 - Acute respiratory failure with hypercapnia (2) Acute renal failure Acute renal failure type: unspecified Qualified Code(s): N17.9 - Acute kidney failure, unspecified
[2021-05-11] MEDS: oxyCODONE HCL IR 5 MG TAB (IMMEDIATE RELEASE) PO PRN ×3 (00:11→12:18)
[2021-05-11] MEDS: PIPERACILLIN/TAZOBACTAM 3.375 GM in DEXTROSE 5% 100 ML IV SCH ×3 (00:12→08:49)
[2021-05-11] MEDS: HEPARIN SOD 5,000 UNIT/0.5 ML VIAL SQ SCH ×2 (00:17→08:15)
[2021-05-11 07:38] LABS: Hematocrit (blood only) 32.6 % (42-52); Hemoglobin 10.6 g/dL (14.0-18.0); Mean Corpuscular Hemoglobin 28.6 pg (25-34); Mean Corpuscular Hgb Conc 32.5 g/dL (32-36); Mean Corpuscular Volume 87.9 fL (80-100); RDW Standard Deviation 54.8 fL (36.4-46.3); Red Blood Count 3.71 M/uL (4.7-6.1); White Blood Count 4.77 K/uL (4.8-10.8)
[2021-05-11 07:47] LABS: Mean Platelet Volume 10.8 fL (7.4-10.4); Platelet Count 87 K/uL (130-400)
[2021-05-11 08:00] LABS: Basophils # (auto) 0.01 K/uL (0-0.2); Basophils % (auto) 0.2 %; Eosinophils # (auto) 0.11 K/uL (0-0.5); Eosinophils % (auto) 2.3 %; Immature Granulocytes # (auto) 0.02 K/uL (0.00-0.02); Immature Granulocytes % (auto) 0.4 %; Lymphocytes # (auto) 0.97 K/uL (1.2-3.4); Lymphocytes % (auto) 20.3 %; Monocytes # (auto) 0.56 K/uL (0.11-0.59); Monocytes % (auto) 11.7 %; Neutrophils % (auto) 65.1 %
[2021-05-11] MEDS: DOXYCYCLINE HYCLATE 100 MG in DEXTROSE 5% 100 ML IV SCH (08:13)
[2021-05-11] MEDS: INSULIN ASPART PER UNIT SC SCH ×2 (08:14→11:38)
[2021-05-11] MEDS: INSULIN GLARGINE SOLOSTAR 100 UNITS/ML 3 ML PEN SQ SCH (08:14)
[2021-05-11] MEDS: METOPROLOL SUCC 50MG EXT REL TAB PO SCH (08:15)
[2021-05-11] MEDS: TAMSULOSIN HCL 0.4 MG CAP PO SCH (08:15)
[2021-05-11] MEDS: PREGABALIN 75 MG CAP PO SCH (08:16)
[2021-05-11] MEDS: SERTRALINE HCL 100 MG TABLET PO SCH (08:16)
[2021-05-11] MEDS: PANTOprazole 40 MG TAB PO SCH (08:16)
[2021-05-11] MEDS: THIAMINE HCL 100 MG TAB PO SCH (08:16)
[2021-05-11 08:32] LABS: BUN Creatinine Ratio 20.5 (10-20); Calcium 8.9 mg/dl (8.5-10.1); Creatinine Clr Calc Pharmacy 159.8 ml/min; Est GFR (African American) 121.5 ml/min; Est GFR (Non-African American) 104.8 ml/min; Magnesium 1.5 mg/dl (1.8-2.4); Phosphorus 2.3 mg/dl (2.5-4.9); Potassium 3.8 mmol/L (3.5-5.1)
[2021-05-11] MEDS ORDERED: cefUROXime axetil 500 MG TAB PO SCH (09:00)
[2021-05-11] MEDS ORDERED: DOXYCYCLINE HYCLATE 100 MG CAP PO SCH ×2 (09:00→21:00)
--- NOTE | 2021-05-11 11:55 | Hospitalist Progress Note ---
Date of Service May 11, 2021 Assessment & Plan (1) Severe sepsis with acute organ dysfunction: Plan: Was brought in with unresponsive episode which required mechanical ventilation Met sepsis criteria on admission -tachycardia, tachypnea , increased white count, increased lactic with hypotension and AARON and required pressor agents Sepsis with likely secondary to pneumonia Appropriate cultures have been taken and he is on intravenous Zosyn and doxycycline Condition seems to be improving and he is extubated Still requiring pressors to maintain blood pressure Appreciate mail technician input and 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 He has been feeling much better and remains afebrile with normalization of the white count His blood and urine cultures have been negative He is off pressor agents and has been back on his home medications-transfer to [facility] telemetry unit for continuation of care We will get PT and OT evaluation and possible discharge on Tuesday Clinically much better , denies any fever and/or chills and the weakness has been improving Has been ambulating in the room and hallway and does not want to stay any longer in the hospital Antibiotics were changed to oral and he will be discharged home this afternoon Electrolytes imbalance Has low potassium and low phosphate Has been getting supplement and will recheck Potassium and phosphate remain low and will be supplemented We will recheck tomorrow-reasonable (2) Pneumonia: Plan: Has bibasilar infiltration Has been getting intravenous Zosyn and doxycycline Blood cultures are pending-negative We will continue current antibiotic with transformation to oral on discharge We will continue IV antibiotic for now Was given Ceftin and doxycycline to finish the course for 10 days in total (3) Acute respiratory failure: Plan: Secondary to pneumonia and sepsis Required intubation but has been extubated this morning Has been on CPAP and maintaining saturation nicely Saturating normally on room air and did not require any more oxygen (4) High anion gap metabolic acidosis: Plan: Secondary to AARON and sepsis Resolved (5) Acute renal failure: Plan: Presented with acute renal failure Likely secondary to acute tubular necrosis in the setting of septic shock Appreciate nephrology input and 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 He has been recovering well He has a dialysis yesterday Resolved AARON Will discontinue central line (6) Acute metabolic encephalopathy: Plan: Multifactorial Sepsis. Secondary to pneumonia and AARON (7) Diabetes mellitus with diabetic polyneuropathy: Plan: Has been on SSI Morbid obesity Needs counseling which has been ongoing Sleep apnea and history of COPD He has been on BiPAP History of liver cirrhosis Doubt any hepatic encephalopathy DVT prophylaxis Subcu heparin Admission and Anticipated Discharge Date Admission Date: May 07, 2021 Subjective 05/08/2021 The patient was seen and examined in ICU He was admitted yesterday with unresponsiveness with severe sepsis and AARON He has been extubated this morning and is still requiring pressors to maintain blood pressure Remains extremely weak and lethargic but denies any other significant symptom 05/09/2021 The patient was seen and examined in ICU He has been feeling a lot better and wants to have his home medications so that he does not go on to withdrawal He wants to go home 05/10/2021 The patient was seen and examined in medical telemetry unit He has been feeling a lot better and only complains to have swelling of the right upper extremity He denies any more confusion, pain and/or shortness of breath 05/11/2021 The patient was seen and examined in medical telemetry unit He has been feeling much better and wants to leave Denies any symptoms whatsoever and has been ambulating in the room and hallway without any problem Review of Systems Review of Systems: All systems reviewed and are unremarkable except as noted below Neurologic: Remains weak but has been improving Physical Exam Physical Exam: Lying in bed comfortably and now saturating on room air Constitutional: well developed, well nourished, + ill appearing and + obese Eyes: PERRL, conjunctivae normal, anicteric sclerae ENMT: external ear and nose normal, oropharynx normal Neck: trachea midline, no thyromegaly Respiratory: + respiratory distress (Minimal respiratory distress at rest) Auscultation: + diminished lung sounds and + crackles (Minimal bibasilar crackles) Cardiovascular: Rate/Rhythm: regular rate and regular rhythm; not tachycardic Heart Sounds: normal S1 and normal S2; no murmur Extremities: + edema (Trace edema bilaterally) Gastrointestinal (Abdomen): Inspection/Auscultation: + abdomen distended and normal bowel sounds Percussion/Palpation: abdomen soft; abdomen nontender Musculoskeletal: No acute arthritis in any joint Neurologic: Alert, awake and oriented x3. No focal sensory or motor deficit appreciated Lymphatic: no cervical or axillary lymphadenopathy Results & Data Results & Data ([facility]) Vital Signs (Past 12 Hours) Vital Signs Temp Pulse Pulse Resp BP Pulse Ox 05/11/21 11:30 37.0 C 88 18 128/70 96 05/11/21 11:00 37.3 C 90 18 130/80 95 05/11/21 10:45 37.0 C 78 18 125/86 95 05/11/21 08:00 95 H 05/11/21 07:00 36.7 C 88 18 114/52 L 96 05/11/21 04:05 36.8 C 92 H 20 119/72 97 05/11/21 00:00 74 Laboratory Results Short CBC 05/11/21 Range/Units 07:21 WBC 4.77 L (4.8-10.8) K/uL Hgb 10.6 L (14.0-18.0) g/dL Hct 32.6 L (42-52) % Plt Count 87 L (130-400) K/uL BMP 05/11/21 07:21 Sodium 138 Potassium 3.8 D Chloride 105 Carbon Dioxide 25 BUN 13 Creatinine 0.62 Glucose 97 Calcium 8.9 (1) Acute renal failure Acute renal failure type: unspecified Qualified Code(s): N17.9 - Acute kidney failure, unspecified (2) Acute respiratory failure Respiratory failure complication: hypoxia and hypercapnia Qualified Code(s): J96.01 - Acute respiratory failure with hypoxia; J96.02 - Acute respiratory failure with hypercapnia
--- NOTE | 2021-05-11 17:41 | Discharge Summary ---
Date of Service May 11, 2021 Admission HPI Per Admitting Provider DICTATED BY:Rogelio Marie MD DATE OF ADMISSION: 05/07/2021. CHIEF COMPLAINT: Unresponsiveness, AARON, severe sepsis. HISTORY OF PRESENT ILLNESS: A 65-year-old male with past medical history significant for type 2 diabetes, history of acute hypercapnic respiratory failure, hyperlipidemia, Charcot feet due to diabetes, diabetic arthropathy, type 2 diabetes, history of hyperkalemia, COPD, obstructive sleep apnea, history of pneumonia, history of emphysema, history of liver cirrhosis, portal hypertension, hypertension, morbid obesity, reflux esophagitis, history of acute kidney injury, history of spinal stenosis, history of cellulitis of right lower extremity, history of left below-knee amputation, history of opioid overdose, anxiety, depression, history of altered mental status, who lives at home with his , was brought in because of unresponsive episode. As per the , he is having cough for a week and he was recently tested for COVID and he was negative and chest x-ray showed possible touch of pneumonia, but he was not prescribed any antibiotics. He also ran out of his pain medications for a few days and started taking his pain medication from last Tuesday. After that, in [facility], he was able to walk fine and he was complaining of some back pain and some leg pain. In the evening around 6:00 p.m., he went to sleep and at 1:00 a.m. in the morning, his noticed that his leg was outside, tried to put his leg back in the bed and tried to wake him up, but he was unresponsive. At that time, EMS was called. Also as per the , he was on BiPAP for a long time, but recently a few months back he bought a new BiPAP machine, which the patient is not tolerating and not using. When the EMS arrived, he was having agonal respirations and oxygen saturation in the 50s. Thus he was intubated in the field and was taken to the ER. In the ER, he was confused, not following commands. He was put on sedation with fentanyl and propofol and was also hypot ensive, given 3 liters of fluids and his blood pressure did not come up, so he was started on Levophed. ABG shows severe acidosis and hypercapnia. His potassium was 5.4 and creatinine was 6. He was empirically started on Zosyn and vancomycin. Cultures were obtained. He has had two peripheral lines. It seems the patient has had multiple admissions for respiratory acidosis, and acute kidney injury, hought to be from overmedication. Also the patient seems to be shaking for the last 2 weeks. Currently intubated and sedated. History got from the and from the ER. Admission Exam Per Admitting Provider GENERAL: The patient is morbidly obese, intubated and sedated. VITAL SIGNS: Temperature 34.2, pulse 91, respiratory rate 18, blood pressure 94/59 on pressors. HEENT: Pupils are pinpoint and sluggish to react. NECK: No neck masses. No JVD is seen. CARDIOVASCULAR: S1 and S2 heard. Regular rate and rhythm. No murmur, no gallop. RESPIRATORY SYSTEM: Normal AP diameter. No accessory muscle use. No wheezing, no crackles. ABDOMEN: Soft, bowel sounds sluggish. No distention. CENTRAL NERVOUS SYSTEM: Status post intubated and sedated, not responding to touch stimuli. EXTREMITIES: No edema, no erythema seen. Status post left below-knee amputation. Amputation site, no erythema or drainage seen. Principal Diagnosis Severe sepsis, pneumonia, AARON-resolved Discharge Exam Lying in bed comfortably and now saturating on room air Constitutional well developed, well nourished, + ill appearing and + obese Eyes PERRL, conjunctivae normal, anicteric sclerae ENMT external ear and nose normal, oropharynx normal Neck trachea midline, no thyromegaly Respiratory + respiratory distress (Minimal respiratory distress at rest) Auscultation: + diminished lung sounds and + crackles (Minimal bibasilar crackles) Cardiovascular Rate/Rhythm: regular rate and regular rhythm; not tachycardic Heart Sounds: normal S1 and normal S2; no murmur Extremities: + edema (Trace edema bilaterally) Gastrointestinal (Abdomen) Inspection/Auscultation: + abdomen distended and normal bowel sounds Percussion/Palpation: abdomen soft; abdomen nontender Lymphatic no cervical or axillary lymphadenopathy Discharge Data Allergies Allergy/AdvReac Type Severity Reaction Status Date / Time ketorolac Allergy Mild BURNING Verified 05/07/21 15:45 SENSATION ciprofloxacin [From Cipro] AdvReac Intermediate upset Verified 05/07/21 08:26 stomach tramadol AdvReac Intermediate GI UPSET Verified 05/07/21 15:45 Consultations 05/07/21 04:52 ED Decision to Admit Stat 05/07/21 08:12 Consult Armored Machine Operator Routine Consult Nephrology Routine Ordered Studies 05/07/21 03:19 CT head/brain wo con Urgent 05/07/21 03:38 CT abd pelvis wo con Urgent CT chest diagnostic wo con Urgent 05/07/21 07:16 US point of care ultrasound Routine Hospital Course (1) Severe sepsis with acute organ dysfunction: Was brought in with unresponsive episode which required mechanical ventilation Met sepsis criteria on admission -tachycardia, tachypnea , increased white count, increased lactic with hypotension and AARON and required pressor agents Sepsis with likely secondary to pneumonia Appropriate cultures have been taken and he is on intravenous Zosyn and doxycycline Condition seems to be improving and he is extubated Still requiring pressors to maintain blood pressure Appreciate green jobs trainer input and 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 He has been feeling much better and remains afebrile with normalization of the white count His blood and urine cultures have been negative He is off pressor agents and has been back on his home medications-transfer to [facility] telemetry unit for continuation of care We will get PT and OT evaluation and possible discharge on Tuesday Clinically much better , denies any fever and/or chills and the weakness has been improving Has been ambulating in the room and hallway and does not want to stay any longer in the hospital Antibiotics were changed to oral and he will be discharged home this afternoon Electrolytes imbalance Has low potassium and low phosphate Has been getting supplement and will recheck Potassium and phosphate remain low and will be supplemented We will recheck tomorrow-reasonable (2) Pneumonia: Has bibasilar infiltration Has been getting intravenous Zosyn and doxycycline Blood cultures are pending-negative We will continue current antibiotic with transformation to oral on discharge We will continue IV antibiotic for now Was given Ceftin and doxycycline to finish the course for 10 days in total (3) Acute respiratory failure: Secondary to pneumonia and sepsis Required intubation but has been extubated this morning Has been on CPAP and maintaining saturation nicely Saturating normally on room air and did not require any more oxygen (4) High anion gap metabolic acidosis: Secondary to AARON and sepsis Resolved (5) Acute renal failure: Presented with acute renal failure Likely secondary to acute tubular necrosis in the setting of septic shock Appreciate nephrology input and 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 He has been recovering well He has a dialysis yesterday Resolved AARON Will discontinue central line (6) Acute metabolic encephalopathy: Multifactorial Sepsis. Secondary to pneumonia and AARON (7) Diabetes mellitus with diabetic polyneuropathy: Has been on SSI Morbid obesity Needs counseling which has been ongoing Sleep apnea and history of COPD He has been on BiPAP History of liver cirrhosis Doubt any hepatic encephalopathy DVT prophylaxis Subcu heparin Total Time Total Time Spent Total Time Spent (In Minutes): 40 minutes Discharge Plan Discharge Items Patient Disposition: Home - Self-Care Reason For Visit: UNRESPONSIVE Discharge Diagnosis: Severe sepsis, pneumonia, AARON-resolved Activity: Resume your previous activity Non-emergency contact: Primary Care Provider Call non-emergency contact if: you have any medication questions and your symptoms worsen Follow-up/Referrals: Karlie Bates, DO [Primary Care Provider] - (You will be called with an appointment within 7 days with your primary care physician) Diet: Carb Consistent or DM2 Addtl Attending Provider Instructions: Please take precautions to avoid fall Finish the course of antibiotic Please give appointment with your healthcare providers Pending Studies at Discharge: No Stand-Alone Forms: My [employer], Smoking Cessation Medications and DC Order Prescriptions: New doxycycline hyclate 100 mg Capsule 100 mg PO BID 7 Days Qty: 14 RF: 0 cefuroxime axetil 500 mg Tablet 500 mg PO BID 7 Days Qty: 14 RF: 0 Lactinex 1 million cell tablet,chewable 1 tab PO BID Qty: 30 RF: 0 magnesium chloride [Mag 64] 64 mg tablet,delayed release (DR/EC) 64 mg PO BID Qty: 30 RF: 0 Continued metformin 500 mg tablet extended release 24 hr 1,000 mg PO BID RF: 0 ondansetron 4 mg tablet,disintegrating 4 mg translingual Q8 PRN (Reason: Nausea) RF: 0 Lantus Solostar U-100 Insulin 100 unit/mL (3 mL) Insulin Pen 20 unit SUBCUT DAILY RF: 0 metoprolol succinate 50 mg Tablet Extended Release 24 Hr 50 mg PO DAILY RF: 0 sertraline 100 mg tablet 100 mg PO DAILY RF: 0 pantoprazole 40 mg tablet,delayed release (DR/EC) 40 mg PO DAILY RF: 0 pregabalin 225 mg capsule 225 mg PO TID RF: 0 thiamine HCl (vitamin B1) [Vitamin B-1] 100 mg tablet 100 mg PO DAILY RF: 0 tamsulosin 0.4 mg Capsule 0.4 mg PO QAM Qty: 30 RF: 0 losartan 100 mg Tablet 50 mg PO DAILY Qty: 30 RF: 0 oxycodone 10 mg tablet 15 mg PO Q12H Qty: 0 RF: 0 Discontinued azithromycin 250 mg Tablet 250 mg PO QAM Qty: 3 RF: 0 Discharge Orders: Discharge Order (Routine); Ordered 05/11/21 Ordered By: Weston Geller Admission Data Admit Date/Time: 05/07/21 05:53 Attending Provider: Weston Geller Admit Provider: Rogelio Marie Primary Care Provider: Karlie Bates Other Providers: Rogelio Marie ; Arsalan Escobar ; Eboni Linder Other Interventions: Discharge Summary Assessment (RN) Last Done: 05/11/21 12:07
== END 2021-05-11 13:43 | disposition home or self-care (01) | DRG 871 ==
LOC: EDBD → ED 02:36 → MERGE 05:53 → 1E 05:53 → 2N 05-09 13:02

== ENCOUNTER 2021-07-02 10:07 | Inpatient (IN) ==
[2021-07-02] MEDS ORDERED: FAMOTIDINE 20MG/5ML IV PUSH IV STA (10:42)
[2021-07-02] MEDS ORDERED: ONDANSETRON INJ 2 MG/ML 2 ML VIAL IV STA (10:42)
[2021-07-02] MEDS ORDERED: MoRPHine SULFATE 4 MG/ML 1 ML CARP\\VIAL IV STA ×2 (10:42→12:48)
--- NOTE | 2021-07-02 10:54 | Emergency Department Note ---
History of Present Illness General Chief complaint: Abdominal Pain Stated complaint: AB PAIN Time Seen by Provider: 07/02/21 10:33 Source: patient Mode of arrival: ambulatory Limitations: no limitations History of Present Illness Provider complaint: Abdominal pain, nausea and vomiting Onset (ago): day(s) 2 Location: abdomen Radiation: non-radiation Severity: moderate and similar to prior episodes Pain Consistency: + constant Maximum Pain Intensity: 8 Quality: + constant Relieved By: + none Exacerbated By: + eating and + movement Associated symptoms: + fever/chills, + loss of appetite and + nausea/vomiting; no headaches, no malaise or no shortness of breath Treatments prior to arrival: none This is a 65-year-old male who presents emergency department complaining of abdominal pain, nausea and vomiting. Patient states symptoms began 2 days ago with generalized abdominal discomfort, he has been nauseated and had recurrent vomiting since then. Patient states is unable to keep down any food or his medications. Patient states pain is similar to when he first developed an incarcerated hernia several years ago which was repaired. Patient states he is a diabetic of her blood sugars have been well controlled recently. Patient denies any change in medication or diet. Patient states he has not had a bowel movement since Tuesday but that is not uncommon for him. He states he has not passed any gas today. He states he has not had fevers but has felt chills at times. Patient denies any additional abdominal surgeries. No other history of IBS or IBD. Pt seen during a time of high acuity and national emergency pandemic while wearing PPE. Home Medications Medication Instructions Recorded Confirmed Type metoprolol succinate 50 mg 50 mg PO DAILY@1530 11/28/18 07/02/21 History tablet,extended release 24 hr insulin glargine 100 unit/mL (3 20 unit SUBCUT DAILY 12/12/19 07/02/21 History mL) subcutaneous pen (Lantus Solostar U-100 Insulin) metformin 500 mg tablet,extended 1,000 mg PO BID 12/12/19 07/02/21 History release 24 hr pantoprazole 40 mg tablet,delayed 40 mg PO DAILYBB 11/23/20 07/02/21 History release pregabalin 225 mg capsule 225 mg PO TID 11/23/20 07/02/21 History sertraline 100 mg tablet 100 mg PO HS 11/23/20 07/02/21 History clotrimazole-betamethasone 1 1 applic TOPICAL BID 07/02/21 07/02/21 History %-0.05 % topical cream losartan 100 mg tablet 100 mg PO DAILY@1530 07/02/21 07/02/21 History oxycodone 20 mg tablet,crush 20 mg PO Q12 07/02/21 07/02/21 History resistant,extended release 12 hr (OxyContin) oxycodone 5 mg tablet 10 mg PO Q8H 07/02/21 07/02/21 History sulfamethoxazole 800 1 tab PO BID 7 Days #14 tab 07/03/21 Rx mg-trimethoprim 160 mg tablet (Bactrim DS) Allergies Allergy/AdvReac Type Severity Reaction Status Date / Time ketorolac Allergy Mild BURNING Verified 07/02/21 11:36 SENSATION ciprofloxacin [From Cipro] AdvReac Intermediate upset Verified 07/02/21 11:36 stomach tramadol AdvReac Intermediate GI UPSET Verified 07/02/21 11:36 Past Med/Surg History Medical History Abdominal pain Acquired claw toe of left foot Acute respiratory failure AARON (acute kidney injury) Altered mental status Anxiety Callus Charcot's joint of right foot Charcot's joint, left ankle and foot Chronic pain Chronic ulcer of left midfoot Depression Diabetes mellitus with diabetic polyneuropathy Diabetic ulcer of left foot DMII (diabetes mellitus, type 2) Fever GERD (gastroesophageal reflux disease) HTN (hypertension) Liver cirrhosis Metabolic encephalopathy Morbid obesity due to excess calories Multiple rib fractures involving four or more ribs Narcotic overdose OA (osteoarthritis) of knee ENRIQUE (obstructive sleep apnea) Shortness of breath Smoker Surgical History H/O knee surgery History of bilateral knee replacement S/P AKA (above knee amputation) unilateral Left S/P trigger finger release Family History Father Lung cancer Mother Hypertension Dementia Social History Smoking Status: Current every day smoker Tobacco Type: Cigarettes Cigarettes Per Day: 20; Second Hand Exposure: No; Do You Dip or Chew Tobacco: No; Tobacco Cessation Education Requested by Patient: No Hx Alcohol Use: No Hx Substance Use: No Preferred Language: Singaporean Communication Ability: Effective Visual Impairment: No Limitations 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 Beliefs That Will Affect Care: None marital status: Current Living Situation: Spouse Other Information That Helps Us Care for You: No Feels Safe at Home: Yes Safety Concerns: Feels Safe At This Time Assistive Devices: Cane, Prosthesis, Walker and Wheelchair Assistive Devices Comment: glasses at home; pt refuses bipap, but accepts 2L O2 at PM Review of Systems A total of 10 systems reviewed and were otherwise negative All systems reviewed & are unremarkable except as noted in HPI & below Physical Exam Vital Signs Vital Signs - 24 hr 07/02/21 10:15 07/02/21 10:20 07/02/21 10:30 Temperature 36.7 C Temperature Source Oral Pulse Rate 114 H 105 H 102 H Pulse Rate from SpO2 Sensor 114 H 105 H 106 H Pulse Rhythm Regular Pulse Strength Normal Respiratory Rate 19 18 16 Respiratory Effort / Characteristics Non-Labored Spontaneous Respiratory Depth Normal Respiratory Pattern Regular Blood Pressure 163/98 H 134/86 Blood Pressure [Right Arm] Blood Pressure Mean 119 102 Blood Pressure Mean [Right Arm] Blood Pressure Position Sitting Blood Pressure Position [Right Arm] Pulse Oximetry 98 96 96 Oxygen Delivery Method Room Air Sepsis Recent Fever Within 48 Hours No Sepsis New/Unexplained Change in Mental Status N/A Sepsis Action Taken by Nursing No Action Required 07/02/21 10:40 07/02/21 10:50 07/02/21 11:00 Temperature Temperature Source Pulse Rate 111 H 106 H 106 H Pulse Rate from SpO2 Sensor 109 H 105 H 107 H Pulse Rhythm Pulse Strength Respiratory Rate 23 8 L 13 Respiratory Effort / Characteristics Respiratory Depth Respiratory Pattern Blood Pressure 143/95 H Blood Pressure [Right Arm] Blood Pressure Mean 111 Blood Pressure Mean [Right Arm] Blood Pressure Position Blood Pressure Position [Right Arm] Pulse Oximetry 100 96 98 Oxygen Delivery Method Sepsis Recent Fever Within 48 Hours Sepsis New/Unexplained Change in Mental Status Sepsis Action Taken by Nursing 07/02/21 11:10 07/02/21 11:20 07/02/21 11:30 Temperature Temperature Source Pulse Rate 107 H 106 H 105 H Pulse Rate from SpO2 Sensor 105 H 107 H 107 H Pulse Rhythm Pulse Strength Respiratory Rate 12 21 17 Respiratory Effort / Characteristics Respiratory Depth Respiratory Pattern Blood Pressure Blood Pressure [Right Arm] Blood Pressure Mean Blood Pressure Mean [Right Arm] Blood Pressure Position Blood Pressure Position [Right Arm] Pulse Oximetry 99 98 99 Oxygen Delivery Method Sepsis Recent Fever Within 48 Hours Sepsis New/Unexplained Change in Mental Status Sepsis Action Taken by Nursing 07/02/21 11:40 07/02/21 11:50 07/02/21 12:00 Temperature Temperature Source Pulse Rate 103 H 106 H 108 H Pulse Rate from SpO2 Sensor 102 H 108 H 106 H Pulse Rhythm Pulse Strength Respiratory Rate 12 11 L 10 L Respiratory Effort / Characteristics Respiratory Depth Respiratory Pattern Blood Pressure Blood Pressure [Right Arm] Blood Pressure Mean Blood Pressure Mean [Right Arm] Blood Pressure Position Blood Pressure Position [Right Arm] Pulse Oximetry 98 99 98 Oxygen Delivery Method Sepsis Recent Fever Within 48 Hours Sepsis New/Unexplained Change in Mental Status Sepsis Action Taken by Nursing 07/02/21 12:10 07/02/21 12:20 07/02/21 12:30 Temperature Temperature Source Pulse Rate 105 H 105 H 107 H Pulse Rate from SpO2 Sensor 105 H 104 H Pulse Rhythm Pulse Strength Respiratory Rate 11 L 16 14 Respiratory Effort / Characteristics Respiratory Depth Respiratory Pattern Blood Pressure Blood Pressure [Right Arm] Blood Pressure Mean Blood Pressure Mean [Right Arm] Blood Pressure Position Blood Pressure Position [Right Arm] Pulse Oximetry 97 100 Oxygen Delivery Method Sepsis Recent Fever Within 48 Hours Sepsis New/Unexplained Change in Mental Status Sepsis Action Taken by Nursing 07/02/21 12:34 Temperature Temperature Source Pulse Rate Pulse Rate from SpO2 Sensor Pulse Rhythm Pulse Strength Respiratory Rate Respiratory Effort / Characteristics Respiratory Depth Respiratory Pattern Blood Pressure Blood Pressure [Right Arm] 134/80 Blood Pressure Mean Blood Pressure Mean [Right Arm] 98 Blood Pressure Position Blood Pressure Position [Right Arm] Sitting Pulse Oximetry Oxygen Delivery Method Sepsis Recent Fever Within 48 Hours Sepsis New/Unexplained Change in Mental Status Sepsis Action Taken by Nursing GENERAL: alert, well appearing, well nourished, no distress, non-toxic, BMI 50 EYE EXAM: normal conjunctiva, PERRL and EOM's grossly intact OROPHARYNX: no exudate, no erythema, lips, buccal mucosa, and tongue normal and mucous membranes are moist NECK: supple, no nuchal rigidity, no adenopathy, non-tender LUNGS: Clear to auscultation. Normal chest wall mechanics, no w/r/r HEART: no murmurs, S1 normal and S2 normal ABDOMEN: abdomen soft, generalized abdominal discomfort with palpation normo- active bowel sounds, no masses, no rebound or guarding. Small area of evolving erythema noted periumbilical, no increased warmth, nontender to touch, abdomen dull to percussion BACK: Back is symmetrical on inspection and there is no deformity, no midline tenderness, no CVA tenderness. SKIN: no rashes and no bruising UPPER EXTREMITIES: upper extremities are grossly normal. FROM, nml pulses b/l. LOWER EXTREMITIES: No pitting edema. FROM, nml pulses b/l. NEURO EXAM: Normal sensorium, cranial nerves II-XII grossly intact, normal s peech, no gross weakness of arms, no gross weakness of legs. Gross sensation intact. Course Administered Medications Discontinued Medications Bacitracin (Bacitracin Oint 15 Gm Tube) Confirm Administered Dose 45 appln .ROUTE .STK-MED ONE Stop: 07/02/21 16:28 Last Admin: 07/02/21 19:28 Dose: 45 appln Documented by: [id number] Betamethasone/Clotrimazole (Clotrimazole/Betamethasone Cr 15 Gm Tube) 1 appln EXT BID [facility] Stop: 08/01/21 20:59 Last Admin: 07/03/21 09:59 Dose: Not Given Documented by: [id number] Admin: 07/02/21 22:23 Dose: Not Given Documented by: [id number] Bupivacaine HCl (Bupivacaine 0.5 % 5 Mg/1 Ml Mpf 30ml Vial) Confirm Administered Dose 30 ml .ROUTE .STK-MED ONE Stop: 07/02/21 16:28 Last Admin: 07/02/21 19:29 Dose: 16 ml Documented by: [id number] Cefazolin Sodium (Cefazolin 3000mg/72.5 Ml Bag) Confirm Administered Dose 3,000 mg IV .STK-MED ONE Stop: 07/02/21 16:34 Last Admin: 07/02/21 16:37 Dose: 3,000 mg Documented by: [id number] Famotidine (Famotidine 20mg/5ml Iv Push) 20 mg IV ONE STA Stop: 07/02/21 10:43 Last Admin: 07/02/21 11:00 Dose: 20 mg Documented by: [id number] Sodium Chloride (Nss 1000ml) 1,000 mls @ 200 mls/hr IV .Q5H TAMIKO Stop: 08/01/21 10:44 Last Infusion: 07/02/21 20:43 Dose: 0 mls/hr Documented by: [id number] Admin: 07/02/21 15:13 Dose: 200 mls/hr Documented by: [id number] Infusion: 07/02/21 15:13 Dose: 200 mls/hr Documented by: [id number] Admin: 07/02/21 10:55 Dose: 200 mls/hr Documented by: [id number] Acetaminophen (Ofirmev) 1,000 mg in 100 mls @ 400 mls/hr IV NOW STA Stop: 07/02/21 14:45 Last Infusion: 07/02/21 16:11 Dose: 0 mls/hr Documented by: [id number] Admin: 07/02/21 15:10 Dose: 400 mls/hr Documented by: [id number] Cefazolin Sodium (Ancef 3000mg) 72.5 mls @ 130 mls/hr IV PREOP ONE Stop: 07/02/21 17:33 Last Admin: 07/02/21 19:32 Dose: Not Given Documented by: [id number] Sodium Chloride (Nss 1000ml) 1,000 mls @ 80 mls/hr IV .[id number] [facility] Stop: 08/01/21 20:38 Last Admin: 07/03/21 09:04 Dose: 80 mls/hr Documented by: [id number] Infusion: 07/03/21 09:04 Dose: 80 mls/hr Documented by: [id number] Admin: 07/02/21 21:47 Dose: 80 mls/hr Documented by: [id number] Pantoprazole Sodium 40 mg/ (Syringe) 10 mls @ 5 mls/min IV DAILY [facility] Stop: 08/02/21 08:59 Last Admin: 07/03/21 09:59 Dose: 5 mls/min Documented by: [id number] Cefazolin Sodium (Ancef 1000mg) 1,000 mg in 7.5 mls @ 2.5 mls/min IV Q8H [facility] Stop: 07/13/21 00:00 Last Admin: 07/03/21 16:10 Dose: 2.5 mls/min Documented by: [id number] Admin: 07/03/21 08:57 Dose: 2.5 mls/min Documented by: [id number] Admin: 07/03/21 00:13 Dose: 2.5 mls/min Documented by: [id number] Insulin Aspart (Insulin Aspart Per Unit) 0 units SC ACHS [facility] Stop: 08/01/21 20:59 Last Admin: 07/03/21 11:58 Dose: Not Given Documented by: [id number] Admin: 07/03/21 09:10 Dose: Not Given Documented by: [id number] Admin: 07/02/21 21:29 Dose: Not Given Documented by: [id number] Cosigned by: [id number] Insulin Glargine (Insulin Glargine Solostar 100 Units/Ml 3 Ml Pen) 20 units SQ DAILY [facility] Stop: 08/02/21 08:59 Last Admin: 07/03/21 09:11 Dose: 20 units Documented by: [id number] Cosigned by: [id number] Ioversol (Optiray 320 125ml) 120 ml IV ONCE ONE Stop: 07/02/21 13:14 Last Admin: 07/02/21 13:16 Dose: 120 ml Documented by: [id number] Lidocaine HCl (Lidocaine 1% Local 20 Ml Vial) Confirm Administered Dose 20 ml .ROUTE .STK-MED ONE Stop: 07/02/21 16:28 Last Admin: 07/02/21 19:29 Dose: 16 ml Documented by: [id number] Losartan Potassium (Losartan Potassium 50 Mg Tab) 100 mg PO DAILY@1530 [facility] Stop: 08/02/21 15:29 Last Admin: 07/03/21 16:10 Dose: 100 mg Documented by: [id number] Metformin HCl (Metformin Hcl Er 500 Mg Tabcr) 1,000 mg PO BID [facility] Stop: 08/01/21 20:59 Last Admin: 07/02/21 21:50 Dose: Not Given Documented by: [id number] Metoprolol Succinate (Metoprolol Succ 50mg Ext Rel Tab) 50 mg PO DAILY@1530 [facility] Stop: 08/02/21 15:29 Last Admin: 07/03/21 16:10 Dose: 50 mg Documented by: [id number] Morphine Sulfate (Morphine Sulfate 4 Mg/Ml 1 Ml Carp\Vial) 4 mg IV NOW STA Stop: 07/02/21 10:43 Last Admin: 07/02/21 10:57 Dose: 4 mg Documented by: [id number] Morphine Sulfate (Morphine Sulfate 4 Mg/Ml 1 Ml Carp\Vial) 4 mg IV NOW STA Stop: 07/02/21 12:49 Last Admin: 07/02/21 12:57 Dose: 4 mg Documented by: [id number] Morphine Sulfate (Morphine Sulfate 10 Mg/Ml Carp/Vial) 6 mg IV NOW STA Stop: 07/02/21 14:32 Last Admin: 07/02/21 14:50 Dose: 6 mg Documented by: [id number] Morphine Sulfate (Morphine Sulfate 2 Mg/Ml Carp) 2 mg IV Q3H PRN PRN Reason: Severe Pain Stop: 07/16/21 20:38 Last Admin: 07/03/21 14:43 Dose: 2 mg Documented by: [id number] Admin: 07/03/21 09:04 Dose: 2 mg Documented by: [id number] Admin: 07/03/21 03:04 Dose: 2 mg Documented by: [id number] Admin: 07/02/21 23:45 Dose: 2 mg Documented by: [id number] Ondansetron HCl (Ondansetron Inj 2 Mg/Ml 2 Ml Vial) 4 mg IV NOW STA Stop: 07/02/21 10:43 Last Admin: 07/02/21 10:56 Dose: 4 mg Documented by: [id number] Oxycodone HCl (Oxycodone Hcl Ir 5 Mg Tab (Immediate Release)) 10 mg PO Q8H [facility] Stop: 07/16/21 21:59 Last Admin: 07/03/21 13:22 Dose: 10 mg Documented by: [id number] Admin: 07/03/21 05:47 Dose: 10 mg Documented by: [id number] Admin: 07/02/21 21:47 Dose: 10 mg Documented by: [id number] Oxycodone HCl (Oxycodone Hcl 20 Mg Tabcr (Oxycontin)) 20 mg PO Q12 [facility] Stop: 07/16/21 20:59 Last Admin: 07/03/21 07:57 Dose: 20 mg Documented by: [id number] Admin: 07/02/21 21:55 Dose: 20 mg Documented by: [id number] Pregabalin (Pregabalin 75 Mg Cap) 225 mg PO TID [facility]KO Stop: 08/01/21 20:59 Last Admin: 07/03/21 14:12 Dose: 225 mg Documented by: [id number] Admin: 07/03/21 09:57 Dose: 225 mg Documented by: [id number] Admin: 07/02/21 21:48 Dose: 225 mg Documented by: [id number] Sertraline HCl (Sertraline Hcl 100 Mg Tablet) 100 mg PO HS [facility]KO Stop: 08/01/21 20:59 Last Admin: 07/02/21 22:23 Dose: Not Given Documented by: [id number] Medical Decision Making Differential Diagnosis Differential diagnoses includes but is not limited to gastritis, peptic ulcer disease, GERD, gallbladder disease, pancreatitis, small bowel obstruction, acute coronary syndrome, pericarditis, ischemic bowel, irritable bowel disease, irritable bowel syndrome, appendicitis, diverticulitis, malignancy, hernia, urinary tract infection, torsion, [/ectopic (if female)], perforation, trauma, infectious. Medical Records Attestation: I reviewed the patient's medical records. Home Medications Current Medication List: was personally reviewed by me Laboratory Data Attestation: I reviewed the patient's lab results. Result diagrams: 07/02/21 10:40 07/02/21 10:40 Lab Results 07/02/21 07/02/21 07/02/21 Range/Units 10:40 10:40 10:40 WBC 6.47 (4.8-10.8) K/uL RBC 4.94 (4.7-6.1) M/uL Hgb 14.3 (14.0-18.0) g/dL Hct 44.0 (42-52) % MCV 89.1 (80-100) fL MCH 28.9 (25-34) pg MCHC 32.5 (32-36) g/dL RDW Std Deviation 50.2 H (36.4-46.3) fL RDW Coeff of Madelyn 15.6 H (11.5-14.5) % Plt Count 203 (130-400) K/uL MPV 12.3 H (7.4-10.4) fL Immature Gran % (Auto) 0.3 % Neut % (Auto) 78.0 % Lymph % (Auto) 7.0 % [place] % (Auto) 14.5 % Eos % (Auto) 0.2 % Baso % (Auto) 0.0 % Neut # (Auto) 5.05 (1.4-6.5) K/uL Lymph # (Auto) 0.45 L (1.2-3.4) K/uL [place] # (Auto) 0.94 H (0.11-0.59) K/uL Eos # (Auto) 0.01 (0-0.5) K/uL Baso # (Auto) 0.00 (0-0.2) K/uL Immature Gran # (Auto) 0.02 (0.00-0.02) K/uL PT 10.9 (9.0-12.0) Seconds INR 1.1 (0.9-1.1) Sodium 132 L (136-145) mmol/L Potassium 4.7 (3.5-5.1) mmol/L Chloride 98 (98-107) mmol/L Carbon Dioxide 24 (21-32) mmol/L Anion Gap 10 (3-11) BUN 13 (6-23) mg/dl Creatinine 0.74 (0.6-1.4) mg/dl Est Cr Clr Drug Dosing 135.9 ml/min Est GFR ( Amer) 113.0 ml/min Est GFR (Non-Af Amer) 97.5 ml/min BUN/Creatinine Ratio 17.6 (10-20) Glucose 155 H (70-99(Fasting)) mg/dl Lactate (0.4-2.0) mmol/L Calcium 9.7 (8.5-10.1) mg/dl Total Bilirubin 0.9 (0.2-1.0) mg/dl AST 17 (13-39) U/L ALT 13 (7-52) U/L Alkaline Phosphatase 98 (34-104) U/L Troponin I < 0.03 (0-0.04) ng/ml Total Protein 7.7 (6.0-8.3) gm/dl Albumin 3.9 (3.4-5.0) gm/dl Globulin 3.8 (2.5-4.0) gm/dl Albumin/Globulin Ratio 1.0 (0.9-2) Lipase 13 (11-82) U/L SARS-CoV-2, RNA, NAAT (NEGATIVE) 07/02/21 07/02/21 Range/Units 12:12 14:35 WBC (4.8-10.8) K/uL RBC (4.7-6.1) M/uL Hgb (14.0-18.0) g/dL Hct (42-52) % MCV (80-100) fL MCH (25-34) pg MCHC (32-36) g/dL RDW Std Deviation (36.4-46.3) fL RDW Coeff of Madelyn (11.5-14.5) % Plt Count (130-400) K/uL MPV (7.4-10.4) fL Immature Gran % (Auto) % Neut % (Auto) % Lymph % (Auto) % [place] % (Auto) % Eos % (Auto) % Baso % (Auto) % Neut # (Auto) (1.4-6.5) K/uL Lymph # (Auto) (1.2-3.4) K/uL [place] # (Auto) (0.11-0.59) K/uL Eos # (Auto) (0-0.5) K/uL Baso # (Auto) (0-0.2) K/uL Immature Gran # (Auto) (0.00-0.02) K/uL PT (9.0-12.0) Seconds INR (0.9-1.1) Sodium (136-145) mmol/L Potassium (3.5-5.1) mmol/L Chloride (98-107) mmol/L Carbon Dioxide (21-32) mmol/L Anion Gap (3-11) BUN (6-23) mg/dl Creatinine (0.6-1.4) mg/dl Est Cr Clr Drug Dosing ml/min Est GFR ( Amer) ml/min Est GFR (Non-Af Amer) ml/min BUN/Creatinine Ratio (10-20) Glucose (70-99(Fasting)) mg/dl Lactate 1.1 (0.4-2.0) mmol/L Calcium (8.5-10.1) mg/dl Total Bilirubin (0.2-1.0) mg/dl AST (13-39) U/L ALT (7-52) U/L Alkaline Phosphatase (34-104) U/L Troponin I (0-0.04) ng/ml Total Protein (6.0-8.3) gm/dl Albumin (3.4-5.0) gm/dl Globulin (2.5-4.0) gm/dl Albumin/Globulin Ratio (0.9-2) Lipase (11-82) U/L SARS-CoV-2, RNA, NAAT NEGATIVE (NEGATIVE) Imaging Data Radiologist's Impression: Abdomen/Pelvis CT 07/02/21 10:42 CT abd pelvis oral and IV con CLINICAL HISTORY: abd pain, n/v, hx hernia TECHNIQUE: Helical axial images of the abdomen and pelvis were obtained and displayed. Automated dose lowering techniques and/or adjustment according to pat ient size were utilized for this exam. This exam was performed with intravenous contrast. COMPARISON: Comparison is made to CT abdomen pelvis 05/07/2021 FINDINGS: Lower chest: Bibasilar atelectasis versus scarring is seen. Moderate atherosclerotic changes are seen. Incidentally noted is lipomatous hypertrophy of the interatrial septum. Liver: Nodular contour of the liver is seen compatible with cirrhosis. Gallbladder and biliary tree: No calcified gallstones. Normal caliber wall. No intra- or extrahepatic biliary ductal dilation. Pancreas: Unremarkable, no focal lesions. Spleen: Mild splenomegaly is seen. Adrenals: Unremarkable. Kidneys and ureters: A left renal cyst is seen. Bladder: Unremarkable. Reproductive organs: Unremarkable. Bowel: Multiple loops of dilated small bowel are seen. There is a distal transition point at the site of an umbilical hernia. No sharp proximal transition point is seen to suggest a closed loop obstruction. Lymph nodes Retroperitoneal: Unremarkable. Mesenteric: Unremarkable. Pelvic: Unremarkable. Peritoneum: A small amount of ascites is seen. Fat stranding is seen about the dilated loops of bowel. Vessels: Atherosclerotic calcifications are seen. Abdominal wall: There is a right fat-containing inguinal hernia. There is an umbilical hernia containing an obstructed loop of bowel as well as fluid. Bones: Degenerative changes in the visualized spine. IMPRESSION: 1. Multiple dilated loops of small bowel are seen with the site of obstruction noted at the umbilical hernia. No evidence of closed loop obstruction. 2. Cirrhosis. Mild splenomegaly. ACT 112: Negative or not required by law. Electronically signed by: Bradley Delaney M.D. 07/02/2021 1:40 PM ECG Data Attestation: I personally reviewed and interpreted this ECG as follows: Indication: + abdominal pain Rate (beats per minute): 105 Rhythm: + sinus tachycardia ECG Intervals/blocks: + Normal QRS and + Normal QT ECG [place]: + Normal ECG ST segments: + Normal ST segments MDM Narrative This is a 65-year-old male who presents due to concern for several days of generalized abdominal pain. Patient most concerned about hernia as he has had a similar pain with a prior incarcerated hernia. Labs are drawn and sent were reassuring, CT of the abdomen pelvis showed a small bowel obstruction. Case was discussed with the hospitalist as well as general surgery. Patient did receive multiple doses of IV narcotics to help control pain. He was placed on IV fluids and given IV Zofran for nausea. I did discuss all results with the patient at bedside, and we discussed need for additional inpatient monitoring and evaluation. He verbalized understanding was in agreement with plan. An order was placed for continuous cardiac monitoring. The monitor shows a rate of _98_ with _normal sinus_ rhythm. Impression & Plan Abdominal pain, Chronic pain, SBO (small bowel obstruction), Obesity Discharge Plan Visit Data Chief Complaint: Abdominal Pain Stated Complaint: AB PAIN ED Provider: Billie Jerome Discharge Problem: Abdominal pain, Chronic pain, SBO (small bowel obstruction), Obesity Patient Disposition: Admitted As Inpatient Discharge Instructions Interventions: ED Discharge Assessment Last Done: 07/02/21 16:18 Discharge Problem: Abdominal pain Qualifiers: Abdominal location: generalized Qualified Code(s): R10.84 - Generalized abdominal pain Chronic pain Qualifiers: Chronic pain type: chronic pain syndrome Qualified Code(s): G89.4 - Chronic pain syndrome Obesity Qualifiers: Obesity type: unspecified obesity type Obesity classification: unspecified obesity classification Serious obesity comorbidity presence: unspecified whether serious comorbidity present Qualified Code(s): E66.9 - Obesity, unspecified
[2021-07-02] MEDS: SODIUM CHLORIDE 0.9% 1000ML 1,000 ML IV SCH ×3 (10:55→21:47)
[2021-07-02 11:58] LABS: Eosinophils # (auto) 0.01 K/uL (0-0.5); Eosinophils % (auto) 0.2 %; Hemoglobin 14.3 g/dL (14.0-18.0); Immature Granulocytes # (auto) 0.02 K/uL (0.00-0.02); Immature Granulocytes % (auto) 0.3 %; Lymphocytes # (auto) 0.45 K/uL (1.2-3.4); Mean Corpuscular Hemoglobin 28.9 pg (25-34); Mean Corpuscular Hgb Conc 32.5 g/dL (32-36); Mean Corpuscular Volume 89.1 fL (80-100); Mean Platelet Volume 12.3 fL (7.4-10.4); Monocytes # (auto) 0.94 K/uL (0.11-0.59); Monocytes % (auto) 14.5 %; Neutrophils # (auto) 5.05 K/uL (1.4-6.5); Platelet Count 203 K/uL (130-400); RDW Coefficient of Variation 15.6 % (11.5-14.5); RDW Standard Deviation 50.2 fL (36.4-46.3); Red Blood Count 4.94 M/uL (4.7-6.1); White Blood Count 6.47 K/uL (4.8-10.8)
[2021-07-02 12:16] LABS: INR 1.1 (0.9-1.1); Prothrombin Time 10.9 Seconds (9.0-12.0)
[2021-07-02 12:24] LABS: Alanine Aminotransferase 13 U/L (7-52); Albumin Level 3.9 gm/dl (3.4-5.0); Alkaline Phosphatase 98 U/L (34-104); Anion Gap 10 (3-11); BUN Creatinine Ratio 17.6 (10-20); Bilirubin,Total 0.9 mg/dl (0.2-1.0); Blood Urea Nitrogen 13 mg/dl (6-23); Calcium 9.7 mg/dl (8.5-10.1); Carbon Dioxide 24 mmol/L (21-32); Chloride 98 mmol/L (98-107); Creatinine Clr Calc Pharmacy 135.9 ml/min; Est GFR (Non-African American) 97.5 ml/min; Globulin 3.8 gm/dl (2.5-4.0); Glucose 155 mg/dl (70-99(Fasting)); Lipase 13 U/L (11-82); Sodium 132 mmol/L (136-145); Total Protein 7.7 gm/dl (6.0-8.3); Troponin I < 0.03 ng/ml (0-0.04)
[2021-07-02 12:41] LABS: Aspartate Aminotransferase 17 U/L (13-39); Potassium 4.7 mmol/L (3.5-5.1)
[2021-07-02] MEDS ORDERED: OPTIRAY 320 125ml IV ONE (13:13)
--- NOTE | 2021-07-02 13:42 | CT Scan Report ---
CT abd pelvis oral and IV con CLINICAL HISTORY: abd pain, n/v, hx hernia TECHNIQUE: Helical axial images of the abdomen and pelvis were obtained and displayed. Automated dose lowering techniques and/or adjustment according to patient size were utilized for this exam. This e xam was performed with intravenous contrast. COMPARISON: Comparison is made to CT abdomen pelvis 05/07/2021 FINDINGS: Lower chest: Bibasilar atelectasis versus scarring is seen. Moderate atherosclerotic changes are see n. Incidentally noted is lipomatous hypertrophy of the interatrial septum. Liver: Nodular contour of the liver is seen compatible with cirrhosis. Gallbladder and biliary tree: No calcified gallstones. Normal caliber wall. No intra- or extrahepatic biliary ductal dilation. Pancreas: Unremarkable, no focal lesions. Spleen: Mild splenomegaly is seen. Adrenals: Unremarkable. Kidneys and ureters: A left renal cyst is seen. Bladder: Unremarkable. Reproductive organs: Unremarkable. Bowel: Multiple loops of dilated small bowel are seen. There is a distal transition point at the site of an umbilical hernia. No sharp proximal transition point is seen to suggest a closed loop obstruct ion. Lymph nodes Retroperitoneal: Unremarkable. Mesenteric: Unremarkable. Pelvic: Unremarkable. Peritoneum: A small amount of ascites is seen. Fat stranding is seen about the dilated loops of bowel . Vessels: Atherosclerotic calcifications are seen. Abdominal wall: There is a right fat-containing inguinal hernia. There is an umbilical hernia contain ing an obstructed loop of bowel as well as fluid. Bones: Degenerative changes in the visualized spine. IMPRESSION: 1. Multiple dilated loops of small bowel are seen with the site of obstruction noted at the umbilica l hernia. No evidence of closed loop obstruction. 2. Cirrhosis. Mild splenomegaly. ACT 112: Negative or not required by law. Electronically signed by: Bradley Delaney M.D. 07/02/2021 1:40 PM
--- NOTE | 2021-07-02 14:29 | Electrocardiogram Report ---
Test Reason : Blood Pressure : / mmHG Vent. Rate : 105 BPM Atrial Rate : 105 BPM P-R Int : 146 ms QRS Dur : 076 ms QT Int : 328 ms P-R-T Axes : 053 030 055 degrees QTc Int : 433 ms Sinus tachycardia Poor R wave progression, consider anterior MD vs. lead placement vs. LVH Abnormal ECG When compared with ECG of 23-NOV-2020 15:03, Losss of R wave voltage in lead V3, likely lead placement related Confirmed by Miah Lai ([id number]) on 07/02/2021 2:29:31 PM Referred By: REFERRED SELF Confirmed By:Miah Lai
[2021-07-02] MEDS ORDERED: MoRPHine SULFATE 10 MG/ML CARP/VIAL IV STA (14:31)
[2021-07-02] MEDS ORDERED: ACETAMINOPHEN 1,000 MG/100 ML VIAL IV STA (14:31)
--- NOTE | 2021-07-02 16:15 | Surgery Consultation ---
Date of Consultation July 02, 2021 Assessment & Plan (1) Incarcerated umbilical hernia: (2) SBO (small bowel obstruction): 65 year-old male with 1 day onset of abdominal pain, nausea, vomiting, inability to tolerate oral intake who presented to ED and found to have incarcerated umbilical hernia containing small bowel with resultant small bowel obstruction. No leukocytosis, lactic acid wnl. There is erythema surrounding the umbilicus with significant tenderness on exam. Unable to ascertain if umbilical hernia can be reducible given discomfort. Plan: Informed patient of CT scan findings showing incarcerated umbilical hernia containing small bowel and associated SBO. Given the incarceration of bowel discussed need for surgical intervention to rule out any small bowel ischemia or prevent small bowel ischemia. I am unable to determine if hernia is reducible on exam given tenderness and discomfort. Dr. Walls also examined patient and reviewed CT scan. Given these findings and examination findings he recommended taking to OR for open umbilical hernia repair possible mesh possible bowel resection possible ostomy. Discussed risks of surgery and informed consent obtained Will be admitted by hospitalists Keep NPO Likely will need OG tube given oral contrast administration and SBO to prevent aspiration. Has deviated septum so patient unwilling to undergoing placement of NGT preoperatively Will receive preop antibiotic Dr. Walls has seen and examined pt, agrees with above. 07/02?2021 4:30PM, Dr. Walls I reviewed pt's H/P, labs, and CT scan with pt, IMP: incarcerated umbilical hernia with cellulitis, Plan, I recommend to do open repair incarcerated umbilical hernia, possible mesh, bowel resection, exploratory laparotomy, stoma, D/W benefits, risks and alternatives of the surgery, the risks - infection, bleeding, sepsis, hernia recurrence, complications relate to mesh, WI, DVT, stroke, , pt understood, he agrees with [facility], he signed informed consent, I answered all questions, History of Present Illness Reason for Consultation: SBO Incarcerated Umbilical hernia Requesting Physician: Dr. Mckeon/Dr. Jerome Attending Physician: Dr. Mckeon History of Present Illness Timothy is a 65 year-old male with history of DM II, ENRIQUE, cirrhosis, Hypertension, morbid obesity, Charcot's of left lower extremity s/p left below knee amputation, history of incarcerated supraumbilical hernia with small bowel with laparoscopic repair in 2019 who presented to ED with complaint of generalized abdominal pain, nausea, and vomiting that began yesterday morning. States this is similar to his prior incarcerated hernia a few years ago. States he had that repaired with possible mesh. States unable to pass any gas today. Last bowel movement was Tuesday. Pain is severe 10/10 upon presentation. Last vomited prior to arrival to ED. No fever or chills. Recently was admitted to hospital in April of 2021 and found to have acute mental status change, acute kidney failure, rhabdomyolosis, and developed blood clot in right upper extremity in which he was taking Eliquis. He had labs which showed no leukocytosis, lactic acid wnl, CT scan of abdomen and pelvis with oral and IV contrast showing dilated small bowel loops with obstruction and transition point at site of umbilical hernia. Allergies Allergy/AdvReac Type Severity Reaction Status Date / Time ketorolac Allergy Mild BURNING Verified 07/02/21 11:36 SENSATION ciprofloxacin [From Cipro] AdvReac Intermediate upset Verified 07/02/21 11:36 stomach tramadol AdvReac Intermediate GI UPSET Verified 07/02/21 11:36 Home Medications Medication Instructions Recorded Confirmed Type metoprolol succinate 50 mg 50 mg PO DAILY@1530 11/28/18 07/02/21 History tablet,extended release 24 hr insulin glargine 100 unit/mL (3 20 unit SUBCUT DAILY 12/12/19 07/02/21 History mL) subcutaneous pen (Lantus Solostar U-100 Insulin) metformin 500 mg tablet,extended 1,000 mg PO BID 12/12/19 07/02/21 History release 24 hr pantoprazole 40 mg tablet,delayed 40 mg PO DAILYBB 11/23/20 07/02/21 History release pregabalin 225 mg capsule 225 mg PO TID 11/23/20 07/02/21 History sertraline 100 mg tablet 100 mg PO HS 11/23/20 07/02/21 History clotrimazole-betamethasone 1 1 applic TOPICAL BID 07/02/21 07/02/21 History %-0.05 % topical cream losartan 100 mg tablet 50 mg PO DAILY@1530 07/02/21 07/02/21 History oxycodone 20 mg tablet,crush 20 mg PO Q12 07/02/21 07/02/21 History resistant,extended release 12 hr (OxyContin) oxycodone 5 mg tablet 10 mg PO Q8H 07/02/21 07/02/21 History Patient History Medical History Abdominal pain Acquired claw toe of left foot Acute respiratory failure AARON (acute kidney injury) Altered mental status Anxiety Callus Charcot's joint of right foot Charcot's joint, left ankle and foot Chronic pain Chronic ulcer of left midfoot Depression Diabetes mellitus with diabetic polyneuropathy Diabetic ulcer of left foot DMII (diabetes mellitus, type 2) Fever GERD (gastroesophageal reflux disease) HTN (hypertension) Liver cirrhosis Metabolic encephalopathy Morbid obesity due to excess calories Multiple rib fractures involving four or more ribs Narcotic overdose OA (osteoarthritis) of knee ENRIQUE (obstructive sleep apnea) Shortness of breath Smoker Surgical History H/O knee surgery History of bilateral knee replacement S/P AKA (above knee amputation) unilateral Left S/P trigger finger release Family History Father Lung cancer Mother Hypertension Dementia Social History Smoking Status: Never smoker Tobacco Type: Cigarettes Cigarettes Per Day: 20; Second Hand Exposure: No; Preferred Language: Nigerien Communication Ability: Unable Visual Impairment: No Limitations Wood Chopper Required: No Beliefs That Will Affect Care: None marital status: Current Living Situation: Family Feels Safe at Home: Yes Assistive Devices: Prosthesis and Wheelchair Review of Systems Review of Systems: All systems reviewed & are unremarkable except as noted in Subjective Physical Exam Constitutional: WD/WN, vitals as above + morbidly obese and cooperative; no acute distress and not ill appearing Neck: normal visual inspection and trachea midline Respiratory: normal respiratory effort; no respiratory distress, no labored breathing and no retractions Gastrointestinal (Abdomen): Inspection/Auscultation: abdomen normal to inspection and + abdominal surgical scar (supraumbilical scar present); abdomen not distended Percussion/Palpation: + abdomen tender (at umbilicus and circumferentially around the umbilicus at site of erythema), + guarding, abdomen soft and + hernia (umbilical hernia with overlying erythema); abdomen not rigid Musculoskeletal: Extremities: + lower leg abnormality Left (Below the knee amputation) Skin: no rashes, warm and dry Psychiatric: Orientation: alert and oriented x 3 Results & Data ([facility]) Vital Signs (Past 12 Hours) Vital Signs Temp Pulse Resp BP BP Pulse Ox 07/02/21 15:50 104 H 14 99 07/02/21 15:40 114 H 16 07/02/21 15:30 106 H 19 132/94 97 07/02/21 15:20 109 H 19 07/02/21 15:10 114 H 17 100 07/02/21 15:00 104 H 9 L 153/97 H 100 07/02/21 14:50 107 H 11 L 98 07/02/21 14:40 106 H 13 97 07/02/21 14:30 107 H 19 139/95 97 07/02/21 14:20 104 H 18 94 07/02/21 14:10 104 H 15 85 L 07/02/21 14:00 105 H 23 146/96 H 97 07/02/21 13:50 104 H 16 92 07/02/21 13:40 107 H 14 98 07/02/21 13:30 101 H 12 134/86 95 07/02/21 13:21 115 H 15 07/02/21 13:01 110 H 20 118/79 07/02/21 13:00 106 H 18 97 07/02/21 12:50 106 H 17 94 07/02/21 12:40 105 H 18 99 07/02/21 12:34 134/80 07/02/21 12:30 107 H 14 07/02/21 12:20 105 H 16 100 07/02/21 12:10 105 H 11 L 97 07/02/21 12:00 108 H 10 L 98 07/02/21 11:50 106 H 11 L 99 07/02/21 11:40 103 H 12 98 07/02/21 11:30 105 H 17 99 07/02/21 11:20 106 H 21 98 07/02/21 11:10 107 H 12 99 07/02/21 11:00 106 H 13 143/95 H 98 07/02/21 10:50 106 H 8 L 96 07/02/21 10:40 111 H 23 100 07/02/21 10:30 102 H 16 134/86 96 07/02/21 10:20 105 H 18 96 07/02/21 10:15 36.7 C 114 H 19 163/98 H 98 Laboratory Results 07/02/21 07/02/21 07/02/21 Range/Units 14:35 12:12 10:40 WBC (4.8-10.8) K/uL RBC (4.7-6.1) M/uL Hgb (14.0-18.0) g/dL Hct (42-52) % MCV (80-100) fL MCH (25-34) pg MCHC (32-36) g/dL RDW Std Deviation (36.4-46.3) fL RDW Coeff of Madelyn (11.5-14.5) % Plt Count (130-400) K/uL MPV (7.4-10.4) fL Immature Gran % (Auto) % Neut % (Auto) % Lymph % (Auto) % [place] % (Auto) % Eos % (Auto) % Baso % (Auto) % Neut # (Auto) (1.4-6.5) K/uL Lymph # (Auto) (1.2-3.4) K/uL [place] # (Auto) (0.11-0.59) K/uL Eos # (Auto) (0-0.5) K/uL Baso # (Auto) (0-0.2) K/uL Immature Gran # (Auto) (0.00-0.02) K/uL PT (9.0-12.0) Seconds INR (0.9-1.1) Sodium 132 L (136-145) mmol/L Potassium 4.7 (3.5-5.1) mmol/L Chloride 98 (98-107) mmol/L Carbon Dioxide 24 (21-32) mmol/L Anion Gap 10 (3-11) BUN 13 (6-23) mg/dl Creatinine 0.74 (0.6-1.4) mg/dl Est Cr Clr Drug Dosing 135.9 ml/min Est GFR ( Amer) 113.0 ml/min Est GFR (Non-Af Amer) 97.5 ml/min BUN/Creatinine Ratio 17.6 (10-20) Glucose 155 H (70-99(Fasting)) mg/dl Lactate 1.1 (0.4-2.0) mmol/L Calcium 9.7 (8.5-10.1) mg/dl Total Bilirubin 0.9 (0.2-1.0) mg/dl AST 17 (13-39) U/L ALT 13 (7-52) U/L Alkaline Phosphatase 98 (34-104) U/L Troponin I < 0.03 (0-0.04) ng/ml Total Protein 7.7 (6.0-8.3) gm/dl Albumin 3.9 (3.4-5.0) gm/dl Globulin 3.8 (2.5-4.0) gm/dl Albumin/Globulin Ratio 1.0 (0.9-2) Lipase 13 (11-82) U/L SARS-CoV-2, RNA, NAAT NEGATIVE (NEGATIVE) 07/02/21 07/02/21 Range/Units 10:40 10:40 WBC 6.47 (4.8-10.8) K/uL RBC 4.94 (4.7-6.1) M/uL Hgb 14.3 (14.0-18.0) g/dL Hct 44.0 (42-52) % MCV 89.1 (80-100) fL MCH 28.9 (25-34) pg MCHC 32.5 (32-36) g/dL RDW Std Deviation 50.2 H (36.4-46.3) fL RDW Coeff of Madelyn 15.6 H (11.5-14.5) % Plt Count 203 (130-400) K/uL MPV 12.3 H (7.4-10.4) fL Immature Gran % (Auto) 0.3 % Neut % (Auto) 78.0 % Lymph % (Auto) 7.0 % [place] % (Auto) 14.5 % Eos % (Auto) 0.2 % Baso % (Auto) 0.0 % Neut # (Auto) 5.05 (1.4-6.5) K/uL Lymph # (Auto) 0.45 L (1.2-3.4) K/uL [place] # (Auto) 0.94 H (0.11-0.59) K/uL Eos # (Auto) 0.01 (0-0.5) K/uL Baso # (Auto) 0.00 (0-0.2) K/uL Immature Gran # (Auto) 0.02 (0.00-0.02) K/uL PT 10.9 (9.0-12.0) Seconds INR 1.1 (0.9-1.1) Sodium (136-145) mmol/L Potassium (3.5-5.1) mmol/L Chloride (98-107) mmol/L Carbon Dioxide (21-32) mmol/L Anion Gap (3-11) BUN (6-23) mg/dl Creatinine (0.6-1.4) mg/dl Est Cr Clr Drug Dosing ml/min Est GFR ( Amer) ml/min Est GFR (Non-Af Amer) ml/min BUN/Creatinine Ratio (10-20) Glucose (70-99(Fasting)) mg/dl Lactate (0.4-2.0) mmol/L Calcium (8.5-10.1) mg/dl Total Bilirubin (0.2-1.0) mg/dl AST (13-39) U/L ALT (7-52) U/L Alkaline Phosphatase (34-104) U/L Troponin I (0-0.04) ng/ml Total Protein (6.0-8.3) gm/dl Albumin (3.4-5.0) gm/dl Globulin (2.5-4.0) gm/dl Albumin/Globulin Ratio (0.9-2) Lipase (11-82) U/L SARS-CoV-2, RNA, NAAT (NEGATIVE) Diagnostic Findings CT abd pelvis oral and IV con CLINICAL HISTORY: abd pain, n/v, hx hernia TECHNIQUE: Helical axial images of the abdomen and pelvis were obtained and displayed. Automated dose lowering techniques and/or adjustment according to patient size were utilized for this exam. This exam was performed with intrav enous contrast. COMPARISON: Comparison is made to CT abdomen pelvis 05/07/2021 FINDINGS: Lower chest: Bibasilar atelectasis versus scarring is seen. Moderate atherosclerotic changes are seen. Incidentally noted is lipomatous hypertrophy of the interatrial septum. Liver: Nodular contour of the liver is seen compatible with cirrhosis. Gallbladder and biliary tree: No calcified gallstones. Normal caliber wall. No intra- or extrahepatic biliary ductal dilation. Pancreas: Unremarkable, no focal lesions. Spleen: Mild splenomegaly is seen. Adrenals: Unremarkable. Kidneys and ureters: A left renal cyst is seen. Bladder: Unremarkable. Reproductive organs: Unremarkable. Bowel: Multiple loops of dilated small bowel are seen. There is a distal transition point at the site of an umbilical hernia. No sharp proximal transition point is seen to suggest a closed loop obstruction. Lymph nodes Retroperitoneal: Unremarkable. Mesenteric: Unremarkable. Pelvic: Unremarkable. Peritoneum: A small amount of ascites is seen. Fat stranding is seen about the dilated loops of bowel. Vessels: Atherosclerotic calcifications are seen. Abdominal wall: There is a right fat-containing inguinal hernia. There is an umbilical hernia containing an obstructed loop of bowel as well as fluid. Bones: Degenerative changes in the visualized spine. IMPRESSION: 1. Multiple dilated loops of small bowel are seen with the site of obstruction noted at the umbilical hernia. No evidence of closed loop obstruction. 2. Cirrhosis. Mild splenomegaly.
[2021-07-02] MEDS ORDERED: SUCCINYLCHOLINE CHLORIDE 20 MG/ML 10 ML VIAL IV ONE (16:16)
[2021-07-02] MEDS ORDERED: PHENYLEPHRINE HCL 10 MG/ML VIAL ONE (16:16)
[2021-07-02] MEDS ORDERED: PROPOFOL IV EMULSION 10 MG/ML 20 ML VIAL IV ONE (16:16)
[2021-07-02] MEDS ORDERED: fentaNYL citrate 100 MCG/2 ML VIAL ONE (16:16)
[2021-07-02] MEDS ORDERED: MIDAZOLAM HCL 1 MG/ML 2ML VIAL ONE (16:16)
[2021-07-02] MEDS ORDERED: LARYING-O-JET KIT (LTA) ONE (16:16)
[2021-07-02] MEDS ORDERED: ePHEDrine sulfate 50 MG/ML SYR ONE (16:16)
[2021-07-02] MEDS ORDERED: ROCURONIUM BROMIDE 10 MG/ML 5 ML VIAL IV ONE ×3 (16:16→18:17)
[2021-07-02] MEDS ORDERED: ONDANSETRON INJ 2 MG/ML 2 ML VIAL ONE (16:16)
[2021-07-02] MEDS ORDERED: DEXAMETHASONE SOD INJ 4 MG/ML VIAL ONE (16:16)
[2021-07-02] MEDS ORDERED: LIDOCAINE 2% 2 ML VIAL/AMP(20MG/ML) INFIL ONE (16:16)
[2021-07-02 16:21] LABS: Appearance Urine Clear (Clear); Blood Urine Negative (Negative); Color Urine Dark Yellow; Glucose Urine UA Negative (Negative); Ketones Urine Trace (Negative); Leukocyte Esterase Urine Negative (Negative); Nitrite Urine Negative (Negative); Protein Urine Negative (Negative); Specific Gravity Urine > 1.045 (1.000-1.030); Urobilinogen Urine Negative (Negative)
[2021-07-02] MEDS ORDERED: BUPIVACAINE 0.5 % 5 MG/1 ML MPF 30ML VIAL ONE (16:27)
[2021-07-02] MEDS ORDERED: LIDOCAINE 1% LOCAL 20 ML VIAL ONE (16:27)
[2021-07-02] MEDS ORDERED: BACITRACIN OINT 15 GM TUBE ONE (16:27)
--- NOTE | 2021-07-02 16:27 | Anesthesiology Consultation ---
Date of Service July 02, 2021 Assessment & Plan (1) Encounter for pre-operative examination: Chart Review Chart Review: Acceptable Risk for Surgery and Patient NOT seen in Pre Admission Testing Consults Requested none History Surgery Operation Date: 07/02/21 09:00 Proposed Procedures p Umbilical Hernia Repair possible Mesh, - Stuart Walls MD s Possible Bowel Resection - Stuart Walls MD Height/Weight Height: 5 ft 6 in Weight: 142.4 kg Allergies Allergy/AdvReac Type Severity Reaction Status Date / Time ketorolac Allergy Mild BURNING Verified 07/02/21 11:36 SENSATION ciprofloxacin [From Cipro] AdvReac Intermediate upset Verified 07/02/21 11:36 stomach tramadol AdvReac Intermediate GI UPSET Verified 07/02/21 11:36 Medications Home Medications Medication Instructions Recorded Confirmed Last Taken metoprolol succinate 50 mg 50 mg PO DAILY@1530 11/28/18 07/02/21 06/30/21 tablet,extended release 24 hr insulin glargine 100 unit/mL (3 20 unit SUBCUT DAILY 12/12/19 07/02/21 06/30/21 mL) subcutaneous pen (Lantus 20 units Solostar U-100 Insulin) metformin 500 mg tablet,extended 1,000 mg PO BID 12/12/19 07/02/21 06/30/21 release 24 hr pantoprazole 40 mg tablet,delayed 40 mg PO DAILYBB 11/23/20 07/02/21 06/30/21 release pregabalin 225 mg capsule 225 mg PO TID 11/23/20 07/02/21 06/30/21 sertraline 100 mg tablet 100 mg PO HS 11/23/20 07/02/21 06/30/21 clotrimazole-betamethasone 1 1 applic TOPICAL BID 07/02/21 07/02/21 06/30/21 %-0.05 % topical cream losartan 100 mg tablet 50 mg PO DAILY@1530 07/02/21 07/02/21 06/30/21 oxycodone 20 mg tablet,crush 20 mg PO Q12 07/02/21 07/02/21 06/30/21 resistant,extended release 12 hr (OxyContin) oxycodone 5 mg tablet 10 mg PO Q8H 07/02/21 07/02/21 06/30/21 Active Medications Generic Name Dose Route Start Last Admin Trade Name Freq PRN Reason Stop Dose Admin Sodium Chloride 1,000 mls @ 200 mls/hr 07/02/21 10:45 07/02/21 15:13 Nss 1000ml IV 08/01/21 10:44 200 mls/hr .Q5H ATMIKO Administration Past Medical History Medical History Abdominal pain Acquired claw toe of left foot Acute respiratory failure AARON (acute kidney injury) Altered mental status Anxiety Callus Charcot's joint of right foot Charcot's joint, left ankle and foot Chronic pain Chronic ulcer of left midfoot Depression Diabetes mellitus with diabetic polyneuropathy Diabetic ulcer of left foot DMII (diabetes mellitus, type 2) Fever GERD (gastroesophageal reflux disease) HTN (hypertension) Liver cirrhosis Metabolic encephalopathy Morbid obesity due to excess calories Multiple rib fractures involving four or more ribs Narcotic overdose OA (osteoarthritis) of knee ENRIQUE (obstructive sleep apnea) Shortness of breath Smoker Recent hospital admission 05/05: HISTORY OF PRESENT ILLNESS: A 65-year-old male with past medical history significant for type 2 diabetes, history of acute hypercapnic respiratory failure, hyperlipidemia, Charcot feet due to diabetes, diabetic arthropathy, type 2 diabetes, history of hyperkalemia, COPD, obstructive sleep apnea, history of pneumonia, history of emphysema, history of liver cirrhosis, portal hypertension, hypertension, morbid obesity, reflux esophagitis, history of acute kidney injury, history of spinal stenosis, history of cellulitis of right lower extremity, history of left below-knee amputation, history of opioid overdose, anxiety, depression, history of altered mental status, who lives at home with his , was brought in because of unresponsive episode. As per the , he is having cough for a week and he was recently tested for COVID and he was negative and chest x-ray showed possible touch of pneumonia, but he was not prescribed any antibiotics. He also ran out of his pain medications for a few days and started taking his pain medication from last Tuesday. After that, in [facility], he was able to walk fine and he was complaining of some back pain and some leg pain. In the evening around 6:00 p.m., he went to sleep and at 1:00 a.m. in the morning, his noticed that his leg was outside, tried to put his leg back in the bed and tried to wake him up, but he was unresponsive. At that time, EMS was called. Also as per the , he was on BiPAP for a long time, but recently a few months back he bought a new BiPAP machine, which the patient is not tolerating and not using. When the EMS arrived, he was having agonal respirations and oxygen saturation in the 50s. Thus he was intubated in the field and was taken to the ER. In the ER, he was confused, not following commands. He was put on sedation with fentanyl and propofol and was also hypotensive, given 3 liters of fluids and his blood pressure did not come up, so he was started on Levophed. ABG shows severe acidosis and hypercapnia. His potassium was 5.4 and creatinine was 6. He was empirically started on Zosyn and vancomycin. Cultures were obtained. He has had two peripheral lines. It seems the patient has had multiple admissions for respiratory acidosis, and acute ki dney injury, hought to be from overmedication. Also the patient seems to be shaking for the last 2 weeks. Currently intubated and sedated. History got from the and from the ER. Exercise / Class Metabolic Activity III < 4 Walking/Shop/Light housework Past Family History Family History Father Lung cancer Mother Hypertension Dementia Past Surgical History Surgical History H/O knee surgery History of bilateral knee replacement S/P AKA (above knee amputation) unilateral Left S/P trigger finger release laparoscopic incarcerated umbilical hernia 07/2019. Glidescope #4. GETA without reported anesthesia problems. Past Anesthesia History No Hx of Anesthesia Complications and No Family Hx of Anesthesia Complications History of PONV No Hx of PONV and No Hx of Motion Sickness Social History Smoking Status: Never smoker tobacco type: cigarettes and e-cigarettes Smoking cigarettes per day: 20 Alcohol type: beer alcohol intake frequency: 3 or more drinks per day substance use type: opiates and prescription drug Last Used Substance: Unknown Physical Exam Vital Signs Last Vital Signs Temp 36.7 C 07/02/21 10:15 Pulse 104 H 07/02/21 15:50 Resp 14 07/02/21 15:50 BP 132/94 07/02/21 15:30 Pulse Ox 99 07/02/21 15:50 Testing Laboratory Results 07/02/21 10:40 07/02/21 10:40 PT 10.9 Seconds (9.0-12.0) 07/02/21 10:40 INR 1.1 (0.9-1.1) 07/02/21 10:40 Electrocardiogram Date: 07/02/21 DICTATED BY:Miah Lai MD Test Reason : Blood Pressure : / mmHG Vent. Rate : 105 BPM Atrial Rate : 105 BPM P-R Int : 146 ms QRS Dur : 076 ms QT Int : 328 ms P-R-T Axes : 053 030 055 degrees QTc Int : 433 ms Sinus tachycardia Poor R wave progression, consider anterior PA vs. lead placement vs. LVH Abnormal ECG When compared with ECG of 23-NOV-2020 15:03, Losss of R wave voltage in lead V3, likely lead placement related
[2021-07-02] MEDS ORDERED: ceFAZolin 3000MG/72.5 ML BAG IV ONE (16:33)
--- NOTE | 2021-07-02 16:34 | History & Physical Bridge Note ---
Date of Service July 02, 2021 History & Physical Bridge Note I have examined the patient, reviewed the History & Physical and in the interval since the performance of the History & Physical I have noted the following changes of clinical significance: no changes noted
[2021-07-02 16:45] LABS: Bilirubin Urine 1+ (Negative)
[2021-07-02] MEDS ORDERED: HYDROmorphone INJ 2 MG/ML SYR/VIAL ONE (17:03)
[2021-07-02] MEDS ORDERED: ATROPINE SULFATE 0.1 MG/ML 10ML SYR IV PRN (17:08)
[2021-07-02] MEDS ORDERED: ONDANSETRON INJ 2 MG/ML 2 ML VIAL IV PRN ×2 (17:08→20:39)
[2021-07-02] MEDS ORDERED: ePHEDrine sulfate 50 MG/ML AMP IV PRN (17:08)
[2021-07-02] MEDS ORDERED: fentaNYL citrate 100 MCG/2 ML VIAL IV PRN (17:08)
[2021-07-02] MEDS ORDERED: HYDROmorphone INJ 1 MG/ML SYRINGE IV PRN (17:08)
--- NOTE | 2021-07-02 17:24 | History & Physical Report ---
Date of Service July 02, 2021 Assessment & Plan (1) Incarcerated umbilical hernia: Plan: Incarcerated umbilical hernia Small bowel obstruction secondary to above Suspected small bowel ischemia --CT ABD: Multiple dilated loops of small bowel are seen with the site of obstruction noted at the umbilical hernia. No evidence of closed loop obstruction. Cirrhosis. Mild splenomegaly. Plan for umbilical hernia repair with possible mesh placement and need for bowel resection with possible ostomy Appreciate surgery input Pain control N.p.o. IV fluids Hyponatremia Likely prerenal started on IV fluids Monitor sodium levels DM Type II: HbA1C: 5.7 ON 05/18/21 Will hold oral diabetic meds ISS Resume basal Insulin as able Monitor BGs ENRIQUE Intermittently uses CPAP Refuses to use CPAP while in hospital Liver cirrhosis Portal hypertension as per records Charcot's foot S/P LLE BKA On chronic pain medications Morbid obesity BMI 50 DVT Px: Start Lovenox SQ tomorrow (As per surgery) Code Status Full Code History of Present Illness Chief Complaint: Abdominal Pain Primary Care Provider: Karlie Bates DO Patient is a 65-year-old male with history of diabetes mellitus, Charcot's S/P LLE BKA, cirrhosis of liver, portal hypertension, COPD, hypertension, obstructive sleep apnea, dyslipidemia and other medical problems presents with history of abdominal pain associated with nausea, vomiting since yesterday. He states abdominal pain is predominantly periumbilical region, radiates to back, intermittent, 9/10 intensity, unrelated to bowel movement. His last bowel movement was on Tuesday. He states that his appetite has been very poor since last 1 week duration. Reports multiple episodes of vomiting since yesterday. Reports having chills but no fever. Patient has history of incarcerated supraumbilical hernia S/P laparoscopic repair in 2019. Also states having chronic bilateral leg pain which he attributes to chocolates, and has chronic lower back pain. Denies any history of chest pain, SOB, dizziness, headache, change in vision, blood in stools, diarrhea, dysuria. Patient CT abdomen suggestive of incarcerated umbilical hernia and small bowel obstruction, discussed with surgery on-call and plan for OR today. Allergies Allergy/AdvReac Type Severity Reaction Status Date / Time ketorolac Allergy Mild BURNING Verified 07/02/21 11:36 SENSATION ciprofloxacin [From Cipro] AdvReac Intermediate upset Verified 07/02/21 11:36 stomach tramadol AdvReac Intermediate GI UPSET Verified 07/02/21 11:36 Home Medications Medication Instructions Recorded Confirmed Type metoprolol succinate 50 mg 50 mg PO DAILY@1530 11/28/18 07/02/21 History tablet,extended release 24 hr insulin glargine 100 unit/mL (3 20 unit SUBCUT DAILY 12/12/19 07/02/21 History mL) subcutaneous pen (Lantus Solostar U-100 Insulin) metformin 500 mg tablet,extended 1,000 mg PO BID 12/12/19 07/02/21 History release 24 hr pantoprazole 40 mg tablet,delayed 40 mg PO DAILYBB 11/23/20 07/02/21 History release pregabalin 225 mg capsule 225 mg PO TID 11/23/20 07/02/21 History sertraline 100 mg tablet 100 mg PO HS 11/23/20 07/02/21 History clotrimazole-betamethasone 1 1 applic TOPICAL BID 07/02/21 07/02/21 History %-0.05 % topical cream losartan 100 mg tablet 100 mg PO DAILY@1530 07/02/21 07/02/21 History oxycodone 20 mg tablet,crush 20 mg PO Q12 07/02/21 07/02/21 History resistant,extended release 12 hr (OxyContin) oxycodone 5 mg tablet 10 mg PO Q8H 07/02/21 07/02/21 History Past Med/Surg History Medical History Abdominal pain Acquired claw toe of left foot Acute respiratory failure AARON (acute kidney injury) Altered mental status Anxiety Callus Charcot's joint of right foot Charcot's joint, left ankle and foot Chronic pain Chronic ulcer of left midfoot Depression Diabetes mellitus with diabetic polyneuropathy Diabetic ulcer of left foot DMII (diabetes mellitus, type 2) Fever GERD (gastroesophageal reflux disease) HTN (hypertension) Liver cirrhosis Metabolic encephalopathy Morbid obesity due to excess calories Multiple rib fractures involving four or more ribs Narcotic overdose OA (osteoarthritis) of knee ENRIQUE (obstructive sleep apnea) Shortness of breath Smoker Surgical History H/O knee surgery History of bilateral knee replacement S/P AKA (above knee amputation) unilateral Left S/P trigger finger release Family History Father Lung cancer Mother Hypertension Dementia Social History Smoking Status: Never smoker Tobacco Type: Cigarettes Cigarettes Per Day: 20; Second Hand Exposure: No; Preferred Language: Azeri Communication Ability: Unable Visual Impairment: No Limitations Geology Associate Required: No Beliefs That Will Affect Care: None marital status: Current Living Situation: Family Feels Safe at Home: Yes Assistive Devices: Prosthesis and Wheelchair Review of Systems Review of Systems: All systems reviewed & are unremarkable except as noted in Subjective Physical Exam Physical Exam: Physical Exam: Vitals signs as noted above General Appearance:Morbidly Obese, no apparent distress Head: normocephalic, Atraumatic Eyes: normal inspection, EOMI Neck: supple, Trachea midline Respiratory/Chest: Normal breath sounds, CTA, No accessory muscle use Cardiovascular: S1, S2, No murmur Abdomen/GI:Soft, distended, absent bowel sounds, generalized tender,+Guarding Extremities/Musculoskeletal:normal inspection, RLE edema, Left LLE BKA Neurologic/Psych:AAOX3, grossly no focal neurological deficits Skin: normal color, warm Results & Data Results & Data ([facility]) Vital Signs (Past 12 Hours) Vital Signs Temp Pulse Pulse Resp BP BP Pulse Ox 07/02/21 16:15 37.4 C 104 H 18 127/90 97 07/02/21 15:50 104 H 14 99 07/02/21 15:40 114 H 16 07/02/21 15:30 106 H 19 132/94 97 07/02/21 15:20 109 H 19 07/02/21 15:10 114 H 17 100 07/02/21 15:00 104 H 9 L 153/97 H 100 07/02/21 14:50 107 H 11 L 98 07/02/21 14:40 106 H 13 97 07/02/21 14:30 107 H 19 139/95 97 07/02/21 14:20 104 H 18 94 07/02/21 14:10 104 H 15 85 L 07/02/21 14:00 105 H 23 146/96 H 97 07/02/21 13:50 104 H 16 92 07/02/21 13:40 107 H 14 98 07/02/21 13:30 101 H 12 134/86 95 07/02/21 13:21 115 H 15 07/02/21 13:01 110 H 20 118/79 07/02/21 13:00 106 H 18 97 07/02/21 12:50 106 H 17 94 07/02/21 12:40 105 H 18 99 07/02/21 12:34 134/80 07/02/21 12:30 107 H 14 07/02/21 12:20 105 H 16 100 07/02/21 12:10 105 H 11 L 97 07/02/21 12:00 108 H 10 L 98 07/02/21 11:50 106 H 11 L 99 07/02/21 11:40 103 H 12 98 07/02/21 11:30 105 H 17 99 07/02/21 11:20 106 H 21 98 07/02/21 11:10 107 H 12 99 07/02/21 11:00 106 H 13 143/95 H 98 07/02/21 10:50 106 H 8 L 96 07/02/21 10:40 111 H 23 100 07/02/21 10:30 102 H 16 134/86 96 07/02/21 10:20 105 H 18 96 07/02/21 10:15 36.7 C 114 H 19 163/98 H 98 Laboratory Results Short CBC 07/02/21 Range/Units 10:40 WBC 6.47 (4.8-10.8) K/uL Hgb 14.3 (14.0-18.0) g/dL Hct 44.0 (42-52) % Plt Count 203 (130-400) K/uL BMP 07/02/21 10:40 Sodium 132 L Potassium 4.7 Chloride 98 Carbon Dioxide 24 BUN 13 Creatinine 0.74 Glucose 155 H Calcium 9.7 Cardiac Enzymes 07/02/21 Range/Units 10:40 Troponin I < 0.03 (0-0.04) ng/ml Liver Function 07/02/21 Range/Units 10:40 Total Bilirubin 0.9 (0.2-1.0) mg/dl AST 17 (13-39) U/L ALT 13 (7-52) U/L Alkaline Phosphatase 98 (34-104) U/L Albumin 3.9 (3.4-5.0) gm/dl Urine 07/02/21 Range/Units 16:15 Urine Color Dark Yellow Urine Appearance Clear (Clear) Urine pH 5.0 (4.5-7.5) Ur Specific [place] > 1.045 H (1.000-1.030) Urine Protein Negative (Negative) Urine Glucose (UA) Negative (Negative) Diagnostic Findings CT ABD: 1. Multiple dilated loops of small bowel are seen with the site of obstruction noted at the umbilical hernia. No evidence of closed loop obstruction. 2. Cirrhosis. Mild splenomegaly. ECG Additional Comments: EKG: Sinus tachycardia, poor R wave progression, QTC 433. Code Status & VTE Plan VTE Prophylaxis Plan VTE Prophylaxis will be ordered: Yes
[2021-07-02] MEDS ORDERED: SUGAMMADEX SODIUM 200 MG/2 ML VIAL IV ONE (19:31)
--- NOTE | 2021-07-02 19:34 | Post Operative Brief Note ---
Immediate Post Op Note v1 Date of Surgery July 02, 2021 Pre & Post Diagnosis Operation Date: 07/02/21 09:00 Pre-Op Diagnosis: Incarcerated umbilical hernia, small bowel obstruction Post-Op Diagnosis: Incarcerated umbilical hernia, small bowel obstruction I identified the patient and participated in the time-out.: Yes Procedure Operation Date: 07/02/21 09:00 Actual Procedures open Repair of incarcerated umibilical hernia(Not Applicable) - Stuart Walls MD Surgeon Stuart Walls MD Tax Examining Technician or scrub tech Estimated Blood Loss 30 Findings Consistent with Post-Op Diagnosis incarcerated umbilical hernia, hernia contain small bowel, small edema, no ischemia Fluids 1500ml Specimens hernia sac Drains Moy Catheter Anesthesia Type General Complications none Disposition Accompanied Patient To Recovery: Yes
[2021-07-02] MEDS ORDERED: oxyCODONE/ACETAMINOPHEN 5mg/325mg TAB PO PRN (20:03)
--- NOTE | 2021-07-02 20:03 | Anesthesiology Progress Note ---
Date of Service July 02, 2021 Anesthesia Post Procedure Vital Signs Vital Signs: Temp Pulse Pulse Pulse Resp BP BP 07/02/21 20:00 106 H 14 154/89 H 07/02/21 19:50 106 H 15 173/95 H 07/02/21 19:42 36.3 C L 110 H 15 160/101 H 07/02/21 16:15 37.4 C 104 H 18 07/02/21 15:50 104 H 14 07/02/21 15:40 114 H 16 07/02/21 15:30 106 H 19 132/94 07/02/21 15:20 109 H 19 07/02/21 15:10 114 H 17 07/02/21 15:00 104 H 9 L 153/97 H 07/02/21 14:50 107 H 11 L 07/02/21 14:40 106 H 13 07/02/21 14:30 107 H 19 139/95 07/02/21 14:20 104 H 18 07/02/21 14:10 104 H 15 07/02/21 14:00 105 H 23 146/96 H 07/02/21 13:50 104 H 16 07/02/21 13:40 107 H 14 07/02/21 13:30 101 H 12 134/86 07/02/21 13:21 115 H 15 07/02/21 13:01 110 H 20 118/79 07/02/21 13:00 106 H 18 07/02/21 12:50 106 H 17 07/02/21 12:40 105 H 18 07/02/21 12:34 07/02/21 12:30 107 H 14 07/02/21 12:20 105 H 16 07/02/21 12:10 105 H 11 L 07/02/21 12:00 108 H 10 L 07/02/21 11:50 106 H 11 L 07/02/21 11:40 103 H 12 07/02/21 11:30 105 H 17 07/02/21 11:20 106 H 21 07/02/21 11:10 107 H 12 07/02/21 11:00 106 H 13 143/95 H 07/02/21 10:50 106 H 8 L 07/02/21 10:40 111 H 23 07/02/21 10:30 102 H 16 134/86 07/02/21 10:20 105 H 18 07/02/21 10:15 36.7 C 114 H 19 163/98 H BP Pulse Ox 07/02/21 20:00 100 07/02/21 19:50 100 07/02/21 19:42 100 07/02/21 16:15 127/90 97 07/02/21 15:50 99 07/02/21 15:40 07/02/21 15:30 97 07/02/21 15:20 07/02/21 15:10 100 07/02/21 15:00 100 07/02/21 14:50 98 07/02/21 14:40 97 07/02/21 14:30 97 07/02/21 14:20 94 07/02/21 14:10 85 L 07/02/21 14:00 97 07/02/21 13:50 92 07/02/21 13:40 98 07/02/21 13:30 95 07/02/21 13:21 07/02/21 13:01 07/02/21 13:00 97 07/02/21 12:50 94 07/02/21 12:40 99 07/02/21 12:34 134/80 07/02/21 12:30 07/02/21 12:20 100 07/02/21 12:10 97 07/02/21 12:00 98 07/02/21 11:50 99 07/02/21 11:40 98 07/02/21 11:30 99 07/02/21 11:20 98 07/02/21 11:10 99 07/02/21 11:00 98 07/02/21 10:50 96 07/02/21 10:40 100 07/02/21 10:30 96 07/02/21 10:20 96 07/02/21 10:15 98 Pain Intensity Bilateral Lower Abdomen: Pain Intensity: 8 Transfer of Care Handoff Completed per policy Notes Mental Status: alert / awake / arousable and participated in evaluation Patient Amnestic to Procedure: Yes Nausea / Vomiting: adequately controlled Pain: adequately controlled Airway Patency, RR, SpO2: stable & adequate BP & HR: stable & adequate Hydration State: stable & adequate Anesthetic Complications: no major complications apparent and Pt Satisfied with anesthetic care
[2021-07-02] MEDS ORDERED: GLUCOSE 40% GEL 15 GM TUBE PO PRN (20:39)
[2021-07-02] MEDS ORDERED: CARBOHYDRATES FOR HYPOGLYCEMIA PO PRN (20:39)
[2021-07-02] MEDS ORDERED: DEXTROSE 50% 50 ML SYRINGE IV PRN (20:39)
[2021-07-02] MEDS ORDERED: GLUCAGON FOR INJ 1 MG VIAL SQ PRN (20:39)
[2021-07-02] MEDS ORDERED: GLUCOSE 10 TABS/TUBE PO PRN (20:39)
[2021-07-02] MEDS ORDERED: metFORMIN HCL ER 500 MG TABCR PO SCH (21:00)
[2021-07-02] MEDS ORDERED: SERTRALINE HCL 100 MG TABLET PO SCH (21:00)
[2021-07-02] MEDS: INSULIN ASPART PER UNIT SC SCH (21:29)
[2021-07-02] MEDS: oxyCODONE HCL IR 5 MG TAB (IMMEDIATE RELEASE) PO SCH (21:47)
[2021-07-02] MEDS: PREGABALIN 75 MG CAP PO SCH (21:48)
[2021-07-02] MEDS: oxyCODONE HCL 20 MG TABCR (OxyCONTIN) PO SCH (21:55)
[2021-07-02] MEDS: CLOTRIMAZOLE/BETAMETHASONE CR 15 GM TUBE EXT SCH (22:23)
[2021-07-02] MEDS: MoRPHine SULFATE 2 MG/ML CARP IV PRN (23:45)
[2021-07-03] MEDS: ceFAZolin 1000MG 1,000 MG/7.5 ML SYR IV SCH ×3 (00:13→16:10)
[2021-07-03] MEDS: MoRPHine SULFATE 2 MG/ML CARP IV PRN ×3 (03:04→14:43)
[2021-07-03] MEDS: oxyCODONE HCL IR 5 MG TAB (IMMEDIATE RELEASE) PO SCH ×2 (05:47→13:22)
[2021-07-03] MEDS ORDERED: PANTOprazole 40 MG TAB PO SCH (06:30)
--- NOTE | 2021-07-03 06:46 | Operative Report (OR) ---
DATE OF PROCEDURE: 07/02/2021. PREOPERATIVE DIAGNOSIS: Incarcerated umbilical hernia. POSTOPERATIVE DIAGNOSIS: Incarcerated umbilical hernia. PROCEDURE: Open repair of incarcerated umbilical hernia. SURGEON: Stuart Walls MD. ANESTHESIA: General. ESTIMATED BLOOD LOSS: About 30 mL. FINDINGS: Incarcerated umbilical hernia. Umbilical hernia sac content is small bowel with edema, no ischemia. COMPLICATIONS: None. INDICATIONS FOR THE PROCEDURE: This is a 65-year-old gentleman who presented to ED with 1-day histor y of umbilical pain and with bulging. The patient had a CT scan diagnosis of incarcerated umbilical hernia causing the bowel obstruction. I recommended to do open repair of umbilical hernia, possible exploratory laparotomy, possible bowel resection and stoma, possible mesh. I did talk to the patient about the benefit, risk, alternative procedure. I indicated the risks may include, but not limited to, such as bleeding, infection, hernia recurrence, complication related to mesh, injury to the bowel , myocardial infarction, DVT, stroke, even , bowel obstruction. The patient understands and he signed informed consent and I answered all questions. DETAILS OF PROCEDURE: After we identified the patient and verified the procedure, we brought the pat ient to the OR, put the patient in the supine position on the OR table. The patient received SCD on bilateral legs to prevent DVT. Also, the patient received 3 grams of Ancef IV for prophylactic antib iotics. The patient received general anesthesia without difficulty. The patient has some cellulitis around the umbilical area. The abdomen was prepped and draped in routine sterile fashion after time out. I injected the local anesthesia by using 1% lidocaine mixed with 0.5% Marcaine around the umbili tres area. I made a transverse incision just below the umbilicus and later on we had to extend 2 cm in the midline being the patient is obese. So we dissected subcutaneous layer, reached the fascial laye r and at this moment, the patient had an incarcerated umbilical hernia. The hernia sac is not reduci ble. At this moment, we reached the fascial layer just below the hernia sac. I made a small incision on the fascial layer and opened the peritoneum and then we enlarged the herni a neck about 1 cm. At this moment, we would be able to do open the hernia sac and then we found the patient had small bowel content in the hernia sac and small bowel edema, but no ischemia sign. We re duced the small bowel back to the abdominal cavity and we resected the hernia sac, sent to pathology. Then I closed the peritoneum by using 2-0 Vicryl and based on the patient had the cellulitis around the umbilicus. At this moment, we found the patient had a hernia neck size about 2.5 x 2.5 cm. I de cided to use 0 PDS to close the hernia neck fascia to fascia continuous running and closed the midlin e incision fascial layer also used the PDS continuous running. Two PDS met together, tied and the he rnia closed nicely, no tension. Hemostasis was obtained. Then, I used 2-0 Vicryl to reattach umbili cus to the fascial layer and then, I used another 2-0 Vicryl to close subcutaneous layer interruptedl y and closed the skin by using staple. Then, we put the dressing on. The patient tolerated the proc edure well. All instrument, needle and sponge counts were correct x2 at the end of the case. The pa tient was transferred to recovery room in stable condition. The specimen was sent to pathology. Aft er the procedure, I did talk to the patient about the OR finding and the procedure we did and I also called the patient's , they understand. Job ID: [id number]
[2021-07-03] MEDS: oxyCODONE HCL 20 MG TABCR (OxyCONTIN) PO SCH (07:57)
[2021-07-03] MEDS ORDERED: INSULIN GLARGINE SOLOSTAR 100 UNITS/ML 3 ML PEN SQ SCH (09:00)
[2021-07-03] MEDS ORDERED: PANTOprazole 40 MG in SYRINGE 0 ML IV SCH (09:00)
[2021-07-03] MEDS: SODIUM CHLORIDE 0.9% 1000ML 1,000 ML IV SCH (09:04)
[2021-07-03] MEDS: INSULIN ASPART PER UNIT SC SCH ×2 (09:10→11:58)
[2021-07-03] MEDS: PREGABALIN 75 MG CAP PO SCH ×2 (09:57→14:12)
[2021-07-03] MEDS: CLOTRIMAZOLE/BETAMETHASONE CR 15 GM TUBE EXT SCH (09:59)
--- NOTE | 2021-07-03 14:10 | Surgery Progress Note ---
Date of Service July 03, 2021 Patient seen at 9:00 am this morning Assessment & Plan (1) Incarcerated umbilical hernia: (2) SBO (small bowel obstruction): Plan: POD # 1 s/p open umbilical hernia repair without mesh , no small bowel resection required - afebrile, vss - postop pain moderate at incision site - adequate urine output via [place] - no vomiting - no return of bowel function Plan: Continue pain management as needed Discontinue [place] Full liquids for lunch If tolerates full liquids and passing some gas okay for discharge as patient would like to go home discharge instructions reviewed Rx for PO Bactrim given mild cellulitis and inflammation surrounding the umbilical hernia to prevent infection His chronic home narcotics should be adequate for postop pain control Follow-up surgery office in [address] Walls has seen patient and agrees with above. Admission and Anticipated Discharge Date Admission Date: July 02, 2021 Subjective preoperative pain has resolved now having postop pain at belly button area, Morphine controls pain no nausea or vomiting feeling slightly full after the clear liquids has not passed gas yet still has [place] catheter Physical Exam Constitutional: well developed, well nourished and + morbidly obese; no acute distress and not ill appearing Neck: normal visual inspection Respiratory: normal respiratory effort; no respiratory distress Gastrointestinal (Abdomen): Inspection/Auscultation: abdomen normal to inspection, + abdominal surgical scar (supraumbilical scar) and + abdominal surgical incision (covered with clean /dry dressing); abdomen not distended Percussion/Palpation: + abdomen tender (at incision site and surrounding umbilicus) and abdomen soft; no guarding and abdomen not rigid Skin: no rashes, warm and dry Psychiatric: Orientation: alert and oriented x 3 Results & Data ([facility]) Vital Signs (Past 12 Hours) Vital Signs Temp Pulse Pulse Resp BP Pulse Ox 07/03/21 11:02 36.9 C 106 H 18 144/79 H 96 07/03/21 07:18 37.1 C 99 H 16 130/78 96 07/03/21 02:54 36.8 C 102 H 16 126/74 100 Laboratory Results 07/03/21 07/03/21 07/02/21 Range/Units 11:55 08:01 21:26 POC Glucose 135 H 131 H 122 H (70-99) mg/dl Urine Color Urine Appearance (Clear) Urine pH (4.5-7.5) Ur Specific [place] (1.000-1.030) Urine Protein (Negative) Urine Glucose (UA) (Negative) Urine Ketones (Negative) Urine Blood (Negative) Urine Nitrite (Negative) Urine Bilirubin (Negative) Urine Urobilinogen (Negative) Ur Leukocyte Esterase (Negative) SARS-CoV-2, RNA, NAAT (NEGATIVE) 07/02/21 07/02/21 07/02/21 Range/Units 19:49 16:27 16:15 POC Glucose 169 H 138 H (70-99) mg/dl Urine Color Dark Yellow Urine Appearance Clear (Clear) Urine pH 5.0 (4.5-7.5) Ur Specific [place] > 1.045 H (1.000-1.030) Urine Protein Negative (Negative) Urine Glucose (UA) Negative (Negative) Urine Ketones Trace H (Negative) Urine Blood Negative (Negative) Urine Nitrite Negative (Negative) Urine Bilirubin 1+ H (Negative) Urine Urobilinogen Negative (Negative) Ur Leukocyte Esterase Negative (Negative) SARS-CoV-2, RNA, NAAT (NEGATIVE) 07/02/21 Range/Units 14:35 POC Glucose (70-99) mg/dl Urine Color Urine Appearance (Clear) Urine pH (4.5-7.5) Ur Specific [place] (1.000-1.030) Urine Protein (Negative) Urine Glucose (UA) (Negative) Urine Ketones (Negative) Urine Blood (Negative) Urine Nitrite (Negative) Urine Bilirubin (Negative) Urine Urobilinogen (Negative) Ur Leukocyte Esterase (Negative) SARS-CoV-2, RNA, NAAT NEGATIVE (NEGATIVE)
[2021-07-03] MEDS ORDERED: LOSARTAN POTASSIUM 50 MG TAB PO SCH (15:30)
[2021-07-03] MEDS ORDERED: METOPROLOL SUCC 50MG EXT REL TAB PO SCH (15:30)
[2021-07-03] MEDS ORDERED: ENOXAPARIN INJ 40 MG/0.4 ML SYR SQ SCH (18:00)
--- NOTE | 2021-07-03 18:33 | Discharge Summary ---
Date of Service July 03, 2021 Admission HPI Per Admitting Provider Patient is a 65-year-old male with history of diabetes mellitus, Charcot's S/P LLE BKA, cirrhosis of liver, portal hypertension, COPD, hypertension, obstructive sleep apnea, dyslipidemia and other medical problems presents with history of abdominal pain associated with nausea, vomiting since yesterday. He states abdominal pain is predominantly periumbilical region, radiates to back, intermittent, 9/10 intensity, unrelated to bowel movement. His last bowel movement was on Tuesday. He states that his appetite has been very poor since last 1 week duration. Reports multiple episodes of vomiting since yesterday. Reports having chills but no fever. Patient has history of incarcerated supraumbilical hernia S/P laparoscopic repair in 2019. Also states having chronic bilateral leg pain which he attributes to chocolates, and has chronic lower back pain. Denies any history of chest pain, SOB, dizziness, headache, change in vision, blood in stools, diarrhea, dysuria. Patient CT abdomen suggestive of incarcerated umbilical hernia and small bowel obstruction, discussed with surgery on-call and plan for OR today. Principal Diagnosis Incarcerated hernia Discharge Exam Patient is tolerating full liquid diet Passing flatus but no BM yet Patient is insistent on being discharged home today On exam, he appears well. He is currently eating his lunch. Abd is non tender. Lower extremity (right leg with no edema, left leg with prosthesis) Discharge Data Allergies Allergy/AdvReac Type Severity Reaction Status Date / Time ketorolac Allergy Mild BURNING Verified 07/02/21 11:36 SENSATION ciprofloxacin [From Cipro] AdvReac Intermediate upset Verified 07/02/21 11:36 stomach tramadol AdvReac Intermediate GI UPSET Verified 07/02/21 11:36 Consultations 07/02/21 14:49 ED Decision to Admit Stat 07/02/21 15:03 Consult General Surgery Routine 07/02/21 15:08 Consult General Surgery Stat Procedures Performed Operation Date: 07/02/21 09:00 Actual Procedures p Repair of incarcerated umibilical hernia(Not Applicable) - Stuart Walls MD Ordered Studies 07/02/21 10:42 CT Abd and Pelvis [CT abd pelvis oral and IV con] Stat Hospital Course (1) Incarcerated umbilical hernia: Incarcerated umbilical hernia Small bowel obstruction secondary to above --CT ABD: Multiple dilated loops of small bowel are seen with the site of obstruction noted at the umbilical hernia. No evidence of closed loop obstruction. Cirrhosis. Mild splenomegaly. -s/p open hernia repair 07/02 -Patient is tolerating a full liquid diet, passing flatus but no BM yet -Patient is insistent on discharge home today for personal reasons. Discussed with surgical team, they are ok with him being discharged and have reviewed return instructions and post op instructions with patient Hyponatremia -mild and likely prerenal -s/p IVF -repeat BMP in 1 week with PCP DM Type II: HbA1C: 5.7 ON 05/18/21 -resume home medications at discharge ENRIQUE Intermittently uses CPAP Refuses to use CPAP while in hospital Liver cirrhosis Portal hypertension as per records -euvolemic at discharge Charcot's foot S/P LLE BKA On chronic pain medications Morbid obesity BMI 50 Patient discharged home in stable condition after discussing with surgery and at patient's insistence. He was provided with instructions to call his doctor or return to ER if his symptoms worsen, if he has nausea/vomiting, fever or chills. He will need to follow up with his surgeon after discharge for post-op evaluation. Total Time Total Time Spent Total Time Spent (In Minutes): 40 Discharge Plan Discharge Items Patient Disposition: Home - Self-Care Reason For Visit: ABDOMINAL PAIN Discharge Diagnosis: Incarcerated umbilical hernia with small bowel causing small bowel obstruction Activity: As commented below Non-emergency contact: Primary Care Provider and Surgeon Call non-emergency contact if: your pain is worsening, your pain is concerning for you, you have a fever, your temperature is above 101, your wound has increased redness, your wound has increased drainage and your wound pain has increased Follow-up/Referrals: Karlie Bates, [Primary Care Provider] - Diet: Full liquid Addtl Attending Provider Instructions: Please follow up with your surgeon Please call your doctor if you have worsening pain, nausea, vomiting 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 Keep dressing clean and dry. ON Tuesday, remove outer dressings and shower.. Let water run over area and pat dry. - Surgical sang will be removed in office. Keep small dressing over incision to prevent clothes from catching on the sang. - Call the surgeon's office with any questions or concerns - - (ex. temperature higher than 101 degrees F, excessive bleeding or pain). MEDICATIONS: - Resume previous medications unless instructed otherwise by your surgeon. - Take antibiotics as prescribed for 7 days. - Your home pain medications should be enough to control your postop pain. Take your home medications as directed. - Recommend avoidance of constipation and straining to avoid increasing abdominal pressure and putting pressure on the hernia repair. Recommend taking daily stool softener (Colace) while taking narcotic pain medication to prevent constipation and straining. FOLLOW UP VISIT: - If not already scheduled, please call the office to schedule a two week follow-up appointment. Office number Pending Studies at Discharge: Yes Studies:: surgical specimen Stand-Alone Forms: My [facility] [employer], Smoking Cessation Medications and DC Order Prescriptions: New sulfamethoxazole-trimethoprim [Bactrim DS] 800-160 mg tablet 1 tab PO BID 7 Days Qty: 14 RF: 0 Continued metformin 500 mg tablet extended release 24 hr 1,000 mg PO BID RF: 0 Lantus Solostar U-100 Insulin 100 unit/mL (3 mL) Insulin Pen 20 unit SUBCUT DAILY RF: 0 metoprolol succinate 50 mg Tablet Extended Release 24 Hr 50 mg PO DAILY@1530 RF: 0 sertraline 100 mg tablet 100 mg PO HS RF: 0 pantoprazole 40 mg tablet,delayed release (DR/EC) 40 mg PO DAILYBB RF: 0 pregabalin 225 mg capsule 225 mg PO TID RF: 0 clotrimazole-betamethasone 1-0.05 % cream 1 applic TOPICAL BID RF: 0 oxycodone 5 mg tablet 10 mg PO Q8H RF: 0 oxycodone [OxyContin] 20 mg tablet,oral only,ext.rel.12 hr 20 mg PO Q12 RF: 0 losartan 100 mg tablet 100 mg PO DAILY@1530 RF: 0 Discharge Orders: Discharge Order (Routine); Ordered 07/03/21 Ordered By: Uyen Lipscomb Admission Data Admit Date/Time: 07/02/21 15:03 Attending Provider: Uyen Lipscomb Admit Provider: Jose Mckeon Primary Care Provider: Karlie Bates Other Providers: Stuart Walls ; Jose Mckeon Other Interventions: Discharge Summary Assessment (RN) Last Done: 07/03/21 16:29
== END 2021-07-03 17:04 | disposition home or self-care (01) | DRG 354 ==
LOC: ED 10:07 → SUATTDRO 15:03 → 3N 15:03
DX: F17.290 Nicotine dependence, other tobacco product, uncomplicated; F17.210 Nicotine dependence, cigarettes, uncomplicated; K42.0 Umbilical hernia with obstruction, without gangrene; E78.5 Hyperlipidemia, unspecified; G47.33 Obstructive sleep apnea (adult) (pediatric); E66.01 Morbid (severe) obesity due to excess calories; Z68.43 Body mass index [BMI] 50.0-59.9, adult; Z88.5 Allergy status to narcotic agent; K74.60 Unspecified cirrhosis of liver; Z96.653 Presence of artificial knee joint, bilateral; K21.9 Gastro-esophageal reflux disease without esophagitis; E11.610 Type 2 diabetes mellitus with diabetic neuropathic arthropathy; Z79.4 Long term (current) use of insulin; Z89.612 Acquired absence of left leg above knee; Z88.1 Allergy status to other antibiotic agents; E87.1 Hypo-osmolality and hyponatremia; K76.6 Portal hypertension

== ENCOUNTER 2021-08-03 13:40 | Inpatient (IN) ==
[2021-08-03 14:46] LABS: INR 1.1 (0.9-1.1); Partial Thromboplastin Ratio 1.2; Partial Thromboplastin Time 32.9 Seconds (21.0-31.0); Prothrombin Time 11.4 Seconds (9.0-12.0)
[2021-08-03 14:54] LABS: Hematocrit (blood only) 33.3 % (42-52); Hemoglobin 11.3 g/dL (14.0-18.0); Mean Corpuscular Hemoglobin 28.8 pg (25-34); Mean Corpuscular Hgb Conc 33.9 g/dL (32-36); Mean Corpuscular Volume 84.7 fL (80-100); Mean Platelet Volume 11.8 fL (7.4-10.4); Platelet Count 180 K/uL (130-400); RDW Coefficient of Variation 14.7 % (11.5-14.5); Red Blood Count 3.93 M/uL (4.7-6.1); White Blood Count 4.42 K/uL (4.8-10.8)
--- NOTE | 2021-08-03 14:54 | XRay Report ---
XR chest 2V PA/lateral CLINICAL HISTORY: stroke alert TECHNIQUE: AP and lateral radiographs of the chest was obtained. Comparison: Comparison is made to chest one view 05/07/2021 FINDINGS: No lines and tubes are seen. The cardiomediastinal silhouette is normal. There is a faint airspace op acity in the left lower lung. No evidence of pleural effusion or pneumothorax. IMPRESSION: Faint airspace opacity in the left lower lung. ACT 112: Negative or not required by law. Electronically signed by: Bradley Delaney M.D. 08/03/2021 2:53 PM
--- NOTE | 2021-08-03 14:59 | CT Scan Report ---
CT head/brain wo con CLINICAL HISTORY: Stroke Alert . Left-sided weakness. COMPARISON STUDY: 05/07/2021 CT DOSE: 729.78 mGycm TECHNIQUE: Standard CT of the Brain was performed without IV contrast. A dose lowering technique was utilized adhering to the principles of ALARA. FINDINGS: Extraaxial space: There is no evidence for subdural hematoma. There are no extra-axial fluid collecti ons. Ventricles and cisterns: The ventricles are normal in size and configuration. There is no evidence fo r midline shift or mass effect. Parenchyma: There is no subarachnoid or intraparenchymal hemorrhage. There is no evidence for an acut e infarct or cerebral edema. There is homogeneous attenuation of the brain parenchyma. There are no g ross mass lesions. Osseous structures: There is no evidence for an acute fracture. The visualized paranasal sinuses are clear. The mastoid air cells are clear bilaterally. Soft tissues: There is no evidence for focal soft tissue swelling. IMPRESSION: 1. No acute intracerebral pathology. ACT 112: Negative or not required by law. Electronically signed by: Edward Michaels M.D. 08/03/2021 2:58 PM
[2021-08-03 15:16] LABS: Albumin Globulin Ratio 0.9 (0.9-2); Albumin Level 3.6 gm/dl (3.4-5.0); BUN Creatinine Ratio 26.9 (10-20); Bilirubin,Total 0.4 mg/dl (0.2-1.0); Creatinine Clr Calc Pharmacy 56.4 ml/min; Est GFR (African American) 46.7 ml/min; Est GFR (Non-African American) 40.3 ml/min; Globulin 4.1 gm/dl (2.5-4.0); Magnesium 1.7 mg/dl (1.7-2.4); Total Protein 7.7 gm/dl (6.0-8.3)
--- NOTE | 2021-08-03 15:43 | Emergency Department Note ---
Impression & Plan Acute hypoxemic respiratory failure, AARON (acute kidney injury), Narcotic abuse, Leg swelling, Abdominal wall cellulitis ED Provider Note NAME: MOOSE ANN AGE: 65 SEX: M : 1955 ARRIVES VIA: Walk-In INFORMANT: Patient, ED PROVIDER(S): Hero Christy MD Chief Complaint: Left-sided weakness HPI: Patient presents due to concern for left-sided weakness which he believes began last Tuesday. The patient was recently Covid positive and does have remote history of recent incarcerated umbilical hernia and small bowel obstruction status post operation. Patient does have a known history of chart Eudora status post left lower extremity BKA liver cirrhosis and portal hypertension. Patient went home on the after having a repair completed on the . Patient does feel as though everything is left-sided and is seen been having worsening confusion. Patient is also noted some right lower extremity swelling. Patient is doing dressing changes over his abdomen every other day. Patient denies any prior history of stroke or mini stroke. Patient is vaccinated for COVID-19. He denies any alcohol or tobacco use. ROS: See HPI for pertinent positives and negatives. A total of 10 systems were re viewed and otherwise negative. Past medical history: See below Surgical history: See below Social history: See below Physical Exam: GENERAL: NAD, wearing a mask, non-toxic. EYE EXAM: Normal conjunctiva. PERRL, no anisocoria and EOM's grossly intact w/o pain. NECK: Supple, no nuchal rigidity, no adenopathy, non-tender. No signs of meningismus. LUNGS: Crackles at the left base. S. HEART: NSR, no MRG. ABDOMEN: Abdomen soft, non-tender, healing surgical incisional site with sang in place, mild cellulitic change but no active drainage crepitus or induration/fluctuance. Normo-active bowel sounds, no masses, no rebound or guarding. BACK: No CVA TTP. SKIN: No rashes and no bruising. UPPER EXTREMITIES: Upper extremities are grossly normal. LOWER EXTREMITIES: Grossly normal, 2+ right lower extremity edema, left lower extremity with left prosthesis in place. NEURO EXAM: A&O x3, cranial nerves II-XII grossly intact, normal speech, 4/5 strength left upper extremity. Differential diagnoses: Infection, dehydration, metabolic abnormality, hypo/hyperglycemia, electrolyte disturbance, anemia, hypoxia, cardiac sources, intracerebral event, toxicologic, neurologic, as well as other pathologies. Course: Patient was seen and evaluated the bedside. Full history physical exam was performed. EKG interpreted by me Normal sinus rhythm, rate of 100, normal intervals, normal axis. No ST changes. Imaging Studies: See Below Cardiac monitoring: An order was placed for continuous cardiac monitoring. The monitor shows a rate of 98 with sinus rhythm. MDM: Patient was seen due to concern for some left-sided weakness. The patient did have recent Covid illness which may have been contributory but the patient has had symptoms since Tuesday is not with any TPA or TNKase stroke window. Blood work was obtained empirically in triage along with a CT of the head and chest x- ray. Patient has mild leukopenia and anemia with a hemoglobin 11.3. The patient's platelet count is normal. Kidney function is unremarkable kidney function does show acute change from a creat of 0.7 and now 1.75. Given the patient's left lower extremity edema fluids were held initially. CT was obtained given the patient's relatively recent procedure and cellulitic change near his incisional site. CT the head was negative. Chest x-ray with faint left lower lobe opacity which may be consistent with the patient's Covid illness. The patient did have crackles on exam. The patient CT abdomen pelvis did not show any deeper infection but was consistent with cellulitic change. Given the patient's right lower extremity swelling a DVT ultrasound was obtained and was negative. I was called by nursing as the patient was more difficult to arouse and somnolent. He was also hypoxic and did require nasal cannula supplemental oxygen. I did evaluate the patient and the patient was arousable to voice but given his history of ENRIQUE the patient was ordered to be placed on BiPAP and a VBG was obtained. VBG did show some hypercarbia as well as acidosis. I did review the patient's medication list which did show that the patient is on narcotic medication. I was concerned that maybe the patient had self medicated and was ordered Narcan as the patient was not responding to verbal stimuli and when awakened by physical stimuli he was not following commands. Patient did receive his Narcan and very quickly was awake alert and following commands. Repeat gas was ordered as an ABG which showed complete resolution of the patient's hypercarbia and acidosis. I did speak the on-call hospitalist PADMA Garay and the patient was admitted to Dr. Marie. As needed Narcan was ordered as needed. I did asked the patient if he had taken any of his narcotic medications or if he had them on him but he denied this. I am concerned that he likely did self medicate as the patient did not receive any narcotic medications in the time that he was here in the emergency department. Critical Care: I have personally spent 95 minutes of critical care time in direct management of this patient. This includes bedside care, interpretation of diagnostic studies, and testing, discussion with consultants, patient, and family members, and other require inpatient management activities. This 95 minutes is in excess of all separately billable procedures. Past Med/Surg History Medical History Abdominal pain Acquired claw toe of left foot Acute respiratory failure AARON (acute kidney injury) Altered mental status Anxiety Callus Charcot's joint of right foot Charcot's joint, left ankle and foot Chronic pain Chronic ulcer of left midfoot Depression Diabetes mellitus with diabetic polyneuropathy Diabetic ulcer of left foot DMII (diabetes mellitus, type 2) Fever GERD (gastroesophageal reflux disease) HTN (hypertension) Liver cirrhosis Metabolic encephalopathy Morbid obesity due to excess calories Multiple rib fractures involving four or more ribs Narcotic overdose OA (osteoarthritis) of knee ENRIQUE (obstructive sleep apnea) SBO (small bowel obstruction) Shortness of breath Smoker Surgical History H/O knee surgery History of bilateral knee replacement S/P AKA (above knee amputation) unilateral Left S/P trigger finger release Family History Father Lung cancer Mother Hypertension Dementia Social History Smoking Status: Current every day smoker Tobacco Type: Cigarettes Cigarettes Per Day: 20; Second Hand Exposure: No; Hx Alcohol Use: No Hx Substance Use: No Preferred Language: Maori Communication Ability: Effective Visual Impairment: No Limitations Hand Singer Required: No Beliefs That Will Affect Care: None marital status: Current Living Situation: Spouse Feels Safe at Home: Yes Assistive Devices: Cane, Prosthesis, Walker and Wheelchair Allergies Allergies Allergy/AdvReac Type Severity Reaction Status Date / Time ketorolac Allergy Mild BURNING Verified 08/03/21 15:52 SENSATION ciprofloxacin [From Cipro] AdvReac Intermediate upset Verified 08/03/21 15:52 stomach tramadol AdvReac Intermediate GI UPSET Verified 08/03/21 15:52 Home Meds Home Medications Medication Instructions Recorded Confirmed insulin glargine 100 unit/mL (3 20 unit SUBCUT DAILY 12/12/19 08/03/21 mL) subcutaneous pen (Lantus Solostar U-100 Insulin) metformin 500 mg tablet,extended 1,000 mg PO BID 12/12/19 08/03/21 release 24 hr pantoprazole 40 mg tablet,delayed 40 mg PO DAILYBB 11/23/20 08/03/21 release pregabalin 225 mg capsule 225 mg PO TID 11/23/20 08/03/21 sertraline 100 mg tablet 150 mg PO HS 11/23/20 08/03/21 losartan 100 mg tablet 100 mg PO DAILY@1530 07/02/21 08/03/21 oxycodone 20 mg tablet,crush 20 mg PO Q12 07/02/21 08/03/21 resistant,extended release 12 hr (OxyContin) oxycodone 5 mg tablet 10 mg PO Q4 PRN 07/02/21 08/03/21 magnesium chloride 64 mg 64 mg PO BID 08/03/21 08/03/21 (magnesium chloride) tablet,delayed release (Mag 64) Results & Data (ED) Vital Signs Vital Signs - 24 hr 08/03/21 13:45 08/03/21 16:20 08/03/21 16:22 Temperature 36.2 C L Temperature Source Temporal Artery Scan Pulse Rate 116 H Pulse Rate [Apical] 97 H Pulse Rhythm Regular Pulse Rhythm [Apical] Regular Pulse Strength Normal Respiratory Rate 20 15 Respiratory Effort / Characteristics Non-Labored Spontaneous Respiratory Depth Normal Normal Respiratory Pattern Regular Blood Pressure 121/72 Blood Pressure [Left Arm] 114/75 Blood Pressure Mean 88 Blood Pressure Mean [Left Arm] 88 Blood Pressure Position Sitting Pulse Oximetry 92 96 95 Oxygen Delivery Method Room Air Room Air Room Air Oxygen Flow Rate Fraction of Inspired Oxygen Sepsis Recent Fever Within 48 Hours No Sepsis New/Unexplained Change in Mental Status No Sepsis Action Taken by Nursing No Action Required 08/03/21 16:23 08/03/21 16:49 08/03/21 18:49 Temperature Temperature Source Pulse Rate Pulse Rate [Apical] 107 H Pulse Rhythm Pulse Rhythm [Apical] Pulse Strength Respiratory Rate 9 L 12 Respiratory Effort / Characteristics Respiratory Depth Respiratory Pattern Blood Pressure Blood Pressure [Left Arm] 114/97 Blood Pressure Mean Blood Pressure Mean [Left Arm] 102 Blood Pressure Position Pulse Oximetry 95 92 92 Oxygen Delivery Method Room Air Nasal Cannula Nasal Cannula Oxygen Flow Rate 2 Fraction of Inspired Oxygen Sepsis Recent Fever Within 48 Hours Sepsis New/Unexplained Change in Mental Status Sepsis Action Taken by Nursing 08/03/21 19:01 08/03/21 21:18 08/03/21 21:49 Temperature Temperature Source Pulse Rate 109 H Pulse Rate [Apical] 94 H Pulse Rhythm Pulse Rhythm [Apical] Pulse Strength Respiratory Rate 19 20 18 Respiratory Effort / Characteristics Non-Labored Spontaneous Non-Labored Spontaneous Respiratory Depth Normal Normal Respiratory Pattern Regular Regular Blood Pressure Blood Pressure [Left Arm] Blood Pressure Mean Blood Pressure Mean [Left Arm] Blood Pressure Position Pulse Oximetry 100 98 95 Oxygen Delivery Method Oxygen Flow Rate Fraction of Inspired Oxygen 35 24 Sepsis Recent Fever Within 48 Hours Sepsis New/Unexplained Change in Mental Status Sepsis Action Taken by [facility] Medications Current Medication List: was personally reviewed by me Laboratory Data Attestation: I reviewed the patient's lab results. Result diagrams: 08/03/21 14:19 08/03/21 14:19 Lab Results 08/03/21 08/03/21 08/03/21 Range/Units 14:19 14:19 14:19 WBC 4.42 L (4.8-10.8) K/uL RBC 3.93 L (4.7-6.1) M/uL Hgb 11.3 L (14.0-18.0) g/dL Hct 33.3 L (42-52) % MCV 84.7 (80-100) fL MCH 28.8 (25-34) pg MCHC 33.9 (32-36) g/dL RDW Std Deviation 46.0 (36.4-46.3) fL RDW Coeff of Madelyn 14.7 H (11.5-14.5) % Plt Count 180 (130-400) K/uL MPV 11.8 H (7.4-10.4) fL PT 11.4 (9.0-12.0) Seconds INR 1.1 (0.9-1.1) APTT 32.9 H (21.0-31.0) Seconds PTT Ratio 1.2 ABG pH (7.35-7.45) ABG pCO2 (35-46) mmHg ABG pO2 (80-95) mmHg ABG HCO3 (19-24) mmol/L ABG O2 Saturation (90-95) % ABG Base Excess (-9-1.8) mEq/L Frank Test (Pos) VBG pH (7.36-7.41) VBG pCO2 (38-50) mmHg VBG pO2 mmHg VBG HCO3 mmol/L VBG O2 Saturation % VBG Base Excess mEq/L Barometric Pressure mm/Hg Oxygen Given Sodium 132 L (136-145) mmol/L Potassium 4.0 (3.5-5.1) mmol/L Chloride 102 (98-107) mmol/L Carbon Dioxide 21 (21-32) mmol/L Anion Gap 9 (3-11) BUN 47 H (6-23) mg/dl Creatinine 1.75 H (0.6-1.4) mg/dl Est Cr Clr Drug Dosing 56.4 ml/min Est GFR ( Amer) 46.7 ml/min Est GFR (Non-Af Amer) 40.3 ml/min BUN/Creatinine Ratio 26.9 H (10-20) Glucose 116 H (70-99(Fasting)) mg/dl POC Glucose (70-99) mg/dl Calcium 9.0 (8.5-10.1) mg/dl Magnesium 1.7 (1.7-2.4) mg/dl Total Bilirubin 0.4 (0.2-1.0) mg/dl AST 38 (13-39) U/L ALT 18 (7-52) U/L Alkaline Phosphatase 109 H (34-104) U/L Ammonia (18-72) umol/L B-Natriuretic Peptide (0-100) pg/ml Total Protein 7.7 (6.0-8.3) gm/dl Albumin 3.6 (3.4-5.0) gm/dl Globulin 4.1 H (2.5-4.0) gm/dl Albumin/Globulin Ratio 0.9 (0.9-2) Procalcitonin (0-0.5) ng/ml SARS-CoV-2, RNA, NAAT (NEGATIVE) 08/03/21 08/03/21 08/03/21 Range/Units 14:19 14:22 15:51 WBC (4.8-10.8) K/uL RBC (4.7-6.1) M/uL Hgb (14.0-18.0) g/dL Hct (42-52) % MCV (80-100) fL MCH (25-34) pg MCHC (32-36) g/dL RDW Std Deviation (36.4-46.3) fL RDW Coeff of Madelyn (11.5-14.5) % Plt Count (130-400) K/uL MPV (7.4-10.4) fL PT (9.0-12.0) Seconds INR (0.9-1.1) APTT (21.0-31.0) Seconds PTT Ratio ABG pH (7.35-7.45) ABG pCO2 (35-46) mmHg ABG pO2 (80-95) mmHg ABG HCO3 (19-24) mmol/L ABG O2 Saturation (90-95) % ABG Base Excess (-9-1.8) mEq/L Frank Test (Pos) VBG pH (7.36-7.41) VBG pCO2 (38-50) mmHg VBG pO2 mmHg VBG HCO3 mmol/L VBG O2 Saturation % VBG Base Excess mEq/L Barometric Pressure mm/Hg Oxygen Given Sodium (136-145) mmol/L Potassium (3.5-5.1) mmol/L Chloride (98-107) mmol/L Carbon Dioxide (21-32) mmol/L Anion Gap (3-11) BUN (6-23) mg/dl Creatinine (0.6-1.4) mg/dl Est Cr Clr Drug Dosing ml/min Est GFR ( Amer) ml/min Est GFR (Non-Af Amer) ml/min BUN/Creatinine Ratio (10-20) Glucose (70-99(Fasting)) mg/dl POC Glucose 120 H (70-99) mg/dl Calcium (8.5-10.1) mg/dl Magnesium (1.7-2.4) mg/dl Total Bilirubin (0.2-1.0) mg/dl AST (13-39) U/L ALT (7-52) U/L Alkaline Phosphatase (34-104) U/L Ammonia (18-72) umol/L B-Natriuretic Peptide (0-100) pg/ml Total Protein (6.0-8.3) gm/dl Albumin (3.4-5.0) gm/dl Globulin (2.5-4.0) gm/dl Albumin/Globulin Ratio (0.9-2) Procalcitonin 0.08 (0-0.5) ng/ml SARS-CoV-2, RNA, NAAT POSITIVE A* (NEGATIVE) 08/03/21 08/03/21 08/03/21 Range/Units 16:37 19:05 20:59 WBC (4.8-10.8) K/uL RBC (4.7-6.1) M/uL Hgb (14.0-18.0) g/dL Hct (42-52) % MCV (80-100) fL MCH (25-34) pg MCHC (32-36) g/dL RDW Std Deviation (36.4-46.3) fL RDW Coeff of Madelyn (11.5-14.5) % Plt Count (130-400) K/uL MPV (7.4-10.4) fL PT (9.0-12.0) Seconds INR (0.9-1.1) APTT (21.0-31.0) Seconds PTT Ratio ABG pH (7.35-7.45) ABG pCO2 (35-46) mmHg ABG pO2 (80-95) mmHg ABG HCO3 (19-24) mmol/L ABG O2 Saturation (90-95) % ABG Base Excess (-9-1.8) mEq/L Frank Test (Pos) VBG pH 7.21 L Cancelled (7.36-7.41) VBG pCO2 65 H Cancelled (38-50) mmHg VBG pO2 29 Cancelled mmHg VBG HCO3 25 Cancelled mmol/L VBG O2 Saturation < 60.0 Cancelled % VBG Base Excess -3.5 Cancelled mEq/L Barometric Pressure 734.3 Cancelled mm/Hg Oxygen Given Sodium (136-145) mmol/L Potassium (3.5-5.1) mmol/L Chloride (98-107) mmol/L Carbon Dioxide (21-32) mmol/L Anion Gap (3-11) BUN (6-23) mg/dl Creatinine (0.6-1.4) mg/dl Est Cr Clr Drug Dosing ml/min Est GFR ( Amer) ml/min Est GFR (Non-Af Amer) ml/min BUN/Creatinine Ratio (10-20) Glucose (70-99(Fasting)) mg/dl POC Glucose (70-99) mg/dl Calcium (8.5-10.1) mg/dl Magnesium (1.7-2.4) mg/dl Total Bilirubin (0.2-1.0) mg/dl AST (13-39) U/L ALT (7-52) U/L Alkaline Phosphatase (34-104) U/L Ammonia (18-72) umol/L B-Natriuretic Peptide 24 (0-100) pg/ml Total Protein (6.0-8.3) gm/dl Albumin (3.4-5.0) gm/dl Globulin (2.5-4.0) gm/dl Albumin/Globulin Ratio (0.9-2) Procalcitonin (0-0.5) ng/ml SARS-CoV-2, RNA, NAAT (NEGATIVE) 08/03/21 08/03/21 08/03/21 Range/Units 20:59 21:44 22:26 WBC (4.8-10.8) K/uL RBC (4.7-6.1) M/uL Hgb (14.0-18.0) g/dL Hct (42-52) % MCV (80-100) fL MCH (25-34) pg MCHC (32-36) g/dL RDW Std Deviation (36.4-46.3) fL RDW Coeff of Madelyn (11.5-14.5) % Plt Count (130-400) K/uL MPV (7.4-10.4) fL PT (9.0-12.0) Seconds INR (0.9-1.1) APTT (21.0-31.0) Seconds PTT Ratio ABG pH 7.36 (7.35-7.45) ABG pCO2 41 (35-46) mmHg ABG pO2 109 H (80-95) mmHg ABG HCO3 22 (19-24) mmol/L ABG O2 Saturation 97.9 H (90-95) % ABG Base Excess -3.0 (-9-1.8) mEq/L Frank Test Pos (Pos) VBG pH (7.36-7.41) VBG pCO2 (38-50) mmHg VBG pO2 mmHg VBG HCO3 mmol/L VBG O2 Saturation % VBG Base Excess mEq/L Barometric Pressure 734.9 mm/Hg Oxygen Given 2 Sodium (136-145) mmol/L Potassium (3.5-5.1) mmol/L Chloride (98-107) mmol/L Carbon Dioxide (21-32) mmol/L Anion Gap (3-11) BUN (6-23) mg/dl Creatinine (0.6-1.4) mg/dl Est Cr Clr Drug Dosing ml/min Est GFR ( Amer) ml/min Est GFR (Non-Af Amer) ml/min BUN/Creatinine Ratio (10-20) Glucose (70-99(Fasting)) mg/dl POC Glucose (70-99) mg/dl Calcium (8.5-10.1) mg/dl Magnesium (1.7-2.4) mg/dl Total Bilirubin (0.2-1.0) mg/dl AST (13-39) U/L ALT (7-52) U/L Alkaline Phosphatase (34-104) U/L Ammonia 36.0 (18-72) umol/L B-Natriuretic Peptide (0-100) pg/ml Total Protein (6.0-8.3) gm/dl Albumin (3.4-5.0) gm/dl Globulin (2.5-4.0) gm/dl Albumin/Globulin Ratio (0.9-2) Procalcitonin (0-0.5) ng/ml SARS-CoV-2, RNA, NAAT (NEGATIVE) Administered Medications Discontinued Medications Sodium Chloride (Nss 1000ml) 500 mls @ 999 mls/hr IV .Q31M ONE Stop: 08/03/21 16:44 Last Infusion: 08/03/21 17:36 Dose: 0 mls/hr Documented by: [id number] Admin: 08/03/21 16:47 Dose: 999 mls/hr Documented by: [id number] Ceftriaxone Sodium (Rocephin) 2,000 mg in 70 mls @ 140 mls/hr IV NOW STA Stop: 08/03/21 19:14 Last Infusion: 08/03/21 20:08 Dose: 0 mls/hr Documented by: [id number] Admin: 08/03/21 19:19 Dose: 140 mls/hr Documented by: [id number] Naloxone HCl (Naloxone Hcl 0.4 Mg/1 Ml Vial/Carp) 0.4 mg IV NOW STA Stop: 08/03/21 19:49 Last Admin: 08/03/21 20:08 Dose: 0.4 mg Documented by: [id number] Imaging Data Radiologist's Impression: Chest X-Ray 08/03/21 13:54 XR chest 2V PA/lateral CLINICAL HISTORY: stroke alert TECHNIQUE: AP and lateral radiographs of the chest was obtained. Comparison: Comparison is made to chest one view 05/07/2021 FINDINGS: No lines and tubes are seen. The cardiomediastinal silhouette is normal. There is a faint airspace opacity in the left lower lung. No evidence of pleural effusion or pneumothorax. IMPRESSION: Faint airspace opacity in the left lower lung. ACT 112: Negative or not required by law. Electronically signed by: Bradley Delaney M.D. 08/03/2021 2:[address] 08/03/21 13:54 CT head/brain wo con CLINICAL HISTORY: Stroke Alert . Left-sided weakness. COMPARISON STUDY: 05/07/2021 CT DOSE: 729.78 mGycm TECHNIQUE: Standard CT of the Brain was performed without IV contrast. A dose lowering technique was utilized adhering to the principles of ALARA. FINDINGS: Extraaxial space: There is no evidence for subdural hematoma. There are no extra-axial fluid collections. Ventricles and cisterns: The ventricles are normal in size and configuration. There is no evidence for midline shift or mass effect. Parenchyma: There is no subarachnoid or intraparenchymal hemorrhage. There is no evidence for an acute infarct or cerebral edema. There is homogeneous at tenuation of the brain parenchyma. There are no gross mass lesions. Osseous structures: There is no evidence for an acute fracture. The visualized paranasal sinuses are clear. The mastoid air cells are clear bilaterally. Soft tissues: There is no evidence for focal soft tissue swelling. IMPRESSION: 1. No acute intracerebral pathology. ACT 112: Negative or not required by law. Electronically signed by: Edward Michaels M.D. 08/03/2021 2:58 PM Abdomen/Pelvis CT 08/03/21 16:14 CT abd pelvis wo con CLINICAL HISTORY: cellulitis exchange teller umbilical incisional site TECHNIQUE: Helical axial images of the abdomen and pelvis were obtained. Automated dose lowering techniques and/or adjustment according to patient size were utilized for this exam. This exam was performed without intravenous contrast. COMPARISON: Comparison is made to CT abdomen pelvis 07/02/2021 FINDINGS: Lower chest: Left greater than right groundglass opacities are seen in the lung bases. Liver: Nodular contour of the liver is seen compatible with cirrhosis. Gallbladder and biliary tree: No calcified gallstones. Normal caliber wall. No intra- or extrahepatic biliary ductal dilation. Pancreas: Unremarkable, no focal lesions. Spleen: Unremarkable. Adrenals: Unremarkable. Kidneys and ureters: Unremarkable. Bladder: Unremarkable. Reproductive organs: Unremarkable. Bowel: Unremarkable. Lymph nodes Retroperitoneal: Unremarkable. Mesenteric: Unremarkable. Pelvic: Unremarkable. Peritoneum: Normal. Vessels: Atherosclerotic calcifications are seen. Abdominal wall: Soft tissue stranding is seen about the umbilical hernia. No drainable fluid collection is seen. Bones: Degenerative changes in the visualized spine. IMPRESSION: Soft tissue stranding is seen about the umbilical hernia site compatible with cellulitis. No drainable fluid collection is seen. ACT 112: Negative or not required by law. Electronically signed by: Bradley Delaney M.D. 08/03/2021 5:41 PM Venous Doppler Study 08/03/21 16:14 US venous doppler LE RT CLINICAL HISTORY: swelling, recent surgery TECHNIQUE: Right lower extremity real-time compression venous ultrasound with Color Doppler imaging. Utilizing real-time ultrasonic imaging multiple real time high-resolution ultrasonic images with compression and noncompression maneuvers of the deep venous system in addition to color doppler imaging were performed from the common femoral vein through the proximal calf veins. COMPARISON: None available at the time of this dictation. FINDINGS: Currently there is normal compressibility of the deep venous system from the common femoral vein through the proximal calf veins. No current evidence of acute thrombosis is identified. Edema is seen throughout the calf. Impression: No evidence of deep venous thrombus. ACT 112: Negative or not required by law. Electronically signed by: Bradley Delaney M.D. 08/03/2021 6:25 PM Discharge Plan Visit Data Chief Complaint: Stroke/CVA Symptoms Stated Complaint: LEFT SIDE BODY WEAKNESS DOWN TO LEG, DR REF ED Provider: Hero Christy Discharge Problem: Acute hypoxemic respiratory failure, AARON (acute kidney injury), Narcotic abuse, Leg swelling, Abdominal wall cellulitis Patient Disposition: Admitted As Inpatient Forms Stand Alone Forms: My [facility] Prescriptions Prescriptions: No Action metformin 500 mg tablet extended release 24 hr 1,000 mg PO BID RF: 0 Lantus Solostar U-100 Insulin 100 unit/mL (3 mL) Insulin Pen 20 unit SUBCUT DAILY RF: 0 sertraline 100 mg tablet 150 mg PO HS RF: 0 pantoprazole 40 mg tablet,delayed release (DR/EC) 40 mg PO DAILYBB RF: 0 pregabalin 225 mg capsule 225 mg PO TID RF: 0 oxycodone 5 mg tablet 10 mg PO Q4 PRN (Reason: Pain) RF: 0 oxycodone [OxyContin] 20 mg tablet,oral only,ext.rel.12 hr 20 mg PO Q12 RF: 0 losartan 100 mg tablet 100 mg PO DAILY@1530 RF: 0 Mag 64 64 mg tablet,delayed release (DR/EC) 64 mg PO BID RF: 0 Referrals Referrals: Karlie Bates DO [Primary Care Provider] -
[2021-08-03] MEDS ORDERED: SODIUM CHLORIDE 0.9% 1000ML 500 ML IV ONE (16:14)
--- NOTE | 2021-08-03 17:02 | Electrocardiogram Report ---
Test Reason : Blood Pressure : / mmHG Vent. Rate : 100 BPM Atrial Rate : 100 BPM P-R Int : 142 ms QRS Dur : 090 ms QT Int : 326 ms P-R-T Axes : 040 025 059 degrees QTc Int : 420 ms Normal sinus rhythm Normal ECG When compared with ECG of 02-JUL-2021 10:14, Nonspecific T wave abnormality now evident in Inferior leads Confirmed by Reed Chu ([id number]) on 08/03/2021 5:01:56 PM Referred By: Confirmed By:Kirby Chu
--- NOTE | 2021-08-03 17:42 | CT Scan Report ---
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 Automated dose lowering tech niques and/or adjustment according to patient size were utilized for this exam. This exam was perfor med without intravenous contrast. COMPARISON: Comparison is made to CT abdomen pelvis 07/02/2021 FINDINGS: Lower chest: Left greater than right groundglass opacities are seen in the lung bases. Liver: Nodular contour of the liver is seen compatible with cirrhosis. Gallbladder and biliary tree: No calcified gallstones. Normal caliber wall. No intra- or extrahepatic biliary ductal dilation. Pancreas: Unremarkable, no focal lesions. Spleen: Unremarkable. Adrenals: Unremarkable. Kidneys and ureters: Unremarkable. Bladder: Unremarkable. Reproductive organs: Unremarkable. Bowel: Unremarkable. Lymph nodes Retroperitoneal: Unremarkable. Mesenteric: Unremarkable. Pelvic: Unremarkable. Peritoneum: Normal. Vessels: Atherosclerotic calcifications are seen. Abdominal wall: Soft tissue stranding is seen about the umbilical hernia. No drainable fluid collecti on is seen. Bones: Degenerative changes in the visualized spine. IMPRESSION: Soft tissue stranding is seen about the umbilical hernia site compatible with cellulitis. No drainabl e fluid collection is seen. ACT 112: Negative or not required by law. Electronically signed by: Bradley Delaney M.D. 08/03/2021 5:41 PM
--- NOTE | 2021-08-03 18:27 | Ultrasound Report ---
US venous doppler LE RT CLINICAL HISTORY: swelling, recent surgery TECHNIQUE: Right lower extremity real-time compression venous ultrasound with Color Doppler imaging. Utilizing real-time ultrasonic imaging multiple real time high-resolution ultrasonic images with comp ression and noncompression maneuvers of the deep venous system in addition to color doppler imaging w ere performed from the common femoral vein through the proximal calf veins. COMPARISON: None available at the time of this dictation. FINDINGS: Currently there is normal compressibility of the deep venous system from the common femoral vein thro ugh the proximal calf veins. No current evidence of acute thrombosis is identified. Edema is seen thr oughout the calf. Impression: No evidence of deep venous thrombus. ACT 112: Negative or not required by law. Electronically signed by: Bradley Delaney M.D. 08/03/2021 6:25 PM
[2021-08-03] MEDS ORDERED: cefTRIAXone SODIUM 2,000 MG/70 ML BAG IV STA (18:45)
[2021-08-03 19:20] LABS: Base Excess VBG -3.5 mEq/L; HCO3 VBG 25 mmol/L; PCO2 VBG 65 mmHg (38-50); PO2 VBG 29 mmHg; pH VBG 7.21 (7.36-7.41)
[2021-08-03 19:27] LABS: Oxygen Saturation VBG < 60.0 %
[2021-08-03] MEDS ORDERED: NALOXONE HCL 0.4 MG/1 ML VIAL/CARP IV STA (19:48)
[2021-08-03] MEDS ORDERED: NALOXONE HCL 0.4 MG/1 ML VIAL/CARP IV PRN (20:19)
[2021-08-03 21:16] LABS: Allen Test Pos (Pos); HCO3 ABG 22 mmol/L (19-24); Oxygen Saturation ABG 97.9 % (90-95); PCO2 ABG 41 mmHg (35-46); PO2 ABG 109 mmHg (80-95); pH ABG 7.36 (7.35-7.45)
--- NOTE | 2021-08-03 22:40 | History and Physical Report ---
DATE OF ADMISSION: 08/03/2021. CHIEF COMPLAINT: Confusion, COVID. HISTORY OF PRESENT ILLNESS: This is a 65-year-old male with past medical history significant for type 2 diabetes, history of acute hypercarbic respiratory failure, history of COPD, sleep apnea, hyperlipidemia, Charcot feet due to diabetes, diabetic arthropathy, history of hyperkalemia, history of pneumonia, history of liver cirrhosis, portal hypertension, hypertension, morbid obesity, reflux esophagitis, history of AARON, history of spinal stenosis, history of cellulitis of right lower extremity, history of left below-knee amputation, history of opioid overdose, anxiety, depression, history of altered mental status in the past. In April, the patient was admitted for severe sepsis. At that time, he was intubated and he was not using BiPAP because he got new machine and was not tolerating it at that time. He also had pneumonia, improved with antibiotics, and at that time, he also had ATN secondary to septic shock requiring dialysis. He improved and got discharged, and again he was admitted in June with incarcerated umbilical hernia, status post repair; he did fine and got discharged. The patient is now using the BiPAP machine at home, but as per the , it broke some time back and is waiting for a new one. The does not know how to get it and he is not using the BiPAP. In the last few days, he was acting confused at home on and off and he was also complaining of some tingliness in his left fingers and also some weakness on the left side. She did home COVID test, which came back positive. She notified the family doctor and was advised to come to the ER today. COVID test came back at home on Tuesday positive. The patient was brought into the hospital. His venous Doppler shows no DVT. CT of the head was with no acute findings. CT abdomen and pelvis is showing possible cellulitis at the umbilical hernia repair site. His creatinine is again went upto 1.75.Patient became more somnolent in ER, venous blood gasses were done, pH of 7.21, but the patient is also on oxycodone, OxyContin at home and he was given naloxone, then the patient woke up and is more alert and awake. The patient is on BiPAP currently. Now, the patient is able to talk, would tell his name, knows his date of , knows that he is in the hospital, could not tell today's date, but the patient knows that he has been diagnosed with COVID. He thinks he came to the hospital because of COVID, but declines any weakness. As per the also, the patient did not have any COVID symptoms of any headache, shortness of breath, cough, abdominal pain, or diarrhea. The patient also denies them. He was complaining of back pain as per . The patient ambulates okay at home, but recently because of back pain, not ambulating much. Lately drinking a lot of water, but not eating much. The patient denies any chest pain, no shortness of breath. No blurred visions, no runny nose, no sore throat, no abdominal pain. Normal bowel and bladder movements. Hemodynamically stable. ALLERGIES: KETOROLAC, CIPROFLOXACIN, TRAMADOL. PAST MEDICAL HISTORY: As mentioned above. PAST SURGICAL HISTORY: Abdominal surgery, amputation of the left lower leg, colonoscopy, cystoscopy, EGD, EGD with biopsy, right knee joint exploration, left knee joint exploration, removal of the bladder tumor, tonsillectomy, adenoidectomy, repair of inguinal hernia, bilateral knee joint replacements. MEDICATIONS: The patient currently is on Lantus 20 units subcutaneously daily, losartan 100 mg p.o. daily, magnesium chloride 64 mg p.o. b.i.d., metformin 1000 mg p.o. b.i.d., oxycodone 10 mg p.o. q.4 hours p.r.n., OxyContin 20 mg p.o. b.i.d., Protonix 40 mg p.o. daily, pregabalin 225 mg p.o. t.i.d., sertraline 150 mg p.o. at bedtime. FAMILY HISTORY: Significant for father had lung cancer; maternal grandmother had colon cancer; brother has heart disorder, right ventricular aneurysm; mother has hypertension, dementia, and obesity. SOCIAL HISTORY: . Quit smoking in 2018, smoked 1 pack a day for 25 years. Alcohol, seems not drinking currently, but used to drink 4-5 beers a day after work. No drug use. REVIEW OF SYSTEMS: As per HPI. For rest of the review of systems, could not get a complete review of symptoms as the patient just woke up from somnolence, some confusion. PHYSICAL EXAMINATION: GENERAL: The patient is morbidly obese, currently not in acute distress. VITAL SIGNS: Temperature 36.2, pulse 107, respiratory rate 19, blood pressure 114/97, oxygen 100% on nasal cannula. HEENT: Pupils equal, round and reactive to light. Oral mucosa moist. NECK: No JVD. No neck masses. CARDIOVASCULAR: S1 and S2 heard. Regular rate and rhythm. No murmur, no gallop. RESPIRATORY SYSTEM: Normal AP diameter. No accessory muscle use. No wheezing, no crackles. ABDOMEN: Soft. Umbilical hernia surgical site is erythematous, slightly wet. No active drainage seen. [employer] Alert and awake and oriented to name and place speech clear no facial droop power 5/5 all extremities no pronator drift coordination of movements normal sensations intact EXTREMITIES: Left above knee amputation. Right leg edema seen. No erythema seen. LABORATORY DATA: WBC 4.4, hemoglobin 11.3, hematocrit 33.3, platelets 180. PT 11.4, INR 1.1, APTT 22.9. Venous blood gas, pH of 7.2, pCO2 of 65, pO2 of 10, bicarbonate 25. Sodium 132, potassium 4, chloride 102, CO2 of 21, BUN 47, creatinine 1.75, serum glucose 116, calcium 9, magnesium 1.7, total bilirubin 0.4, AST 38, ALT 18, alkaline phosphatase 109. BNP 24. Procalcitonin 0.08. SARS-CoV-2 positive. IMAGING: Venous Doppler of the right lower extremity: No DVT. CT of abdomen and pelvis without contrast: Soft tissue stranding seen about the umbilical hernia site compatible with cellulitis, no drainable fluid collection is seen. CT of the head: No acute intracranial pathology. Chest x-ray: Faint airspace opacity in the eft lower lung. EKG: Normal sinus rhythm at a rate of 100, nonspecific T-wave abnormalities. ASSESSMENT AND PLAN: This 65-year-old male presents with a recent diagnosis of COVID, some altered mental status, possibly weakness. 1. Altered mental status: Could be related to COVID, could be related to not using BiPAP at home, which broke a few days ago, rule out stroke. The patient was somewhat somnolent in the Emergency Room and venous blood gas shows pH of 7.21, but after naloxone, he woke up. Repeat venous blood gas is ok. CT\ head was w unremarkable. We will do full stroke workup with MRI scan, echocardiogram, speech evaluation, neurology evaluation in the a.m. because of recent COVID. His altered mental status also could be from cellulitis of the abdomen at the surgical site. The patient recently had incarcerated umbilical hernia repair. We will empirically start on IV Zosyn and doxycycline. Gentle fluids. Continue his BiPAP. The patient does not meet criteria for COVID treatment with remdesivir. We will place him on IV Decadron. Follow CRP in a.m. Closely monitor in the telemetry floor. 2. Acute kidney injury: Creatinine of 1.75. His creatinine on last admission was 0.7. We will hold losartan and avoid nephrotoxic agents. We will place him on gentle fluids. Follow the repeat laboratories in the a.m. 3. Diabetes: Hold his metformin. Continue his Lantus. Place him on insulin sliding scale. Monitor the blood sugars as he is on Decadron. 4. History of gastroesophageal reflux disease: Continue on Protonix. 5. Chronic pain: Continue pregabalin. Holding his oxycodone, OxyContin because of the altered mental status and the patient responding to naloxone. If needed, we will start on lower doses. 6. Depression: Continue Zoloft. 7. History of liver cirrhosis as per Epic: Alcohol abuse seems 10 years ago. Currently, seems drinking few beers/day? On gentle fluids .Monitor for volume overload. We will follow ammonia levels. Monitor for any withdrawal. 8. History of benign prostatic hyperplasia: Currently not on any medications. We will monitor for any urinary retention. 9. History of chronic obstructive pulmonary disease: Not in exacerbation. We will place him on nebulizers p.r.n. 10. Sleep apnea: His BiPAP machine broke. Needs help with replacement. Use BiPAP while in the hospital. 11. Morbid obesity: Needs counseling. 12. Abdominal wall cellulitis . At recent umbilical hernia repair site.On abx as above. If need will consult surgery. 12. Deep venous thrombosis prophylaxis: Lovenox. DISPOSITION: Closely monitor in tele floor. Level 1 full code. PT/OT prior to discharge. Social service to help with discharge planning. Job ID: [id number] [facility]
[2021-08-04] MEDS ORDERED: XOPENEX/ATROVENT 1.25mg/0.5MG NEB COMBO NEB PRN (00:27)
[2021-08-04] MEDS ORDERED: ACETAMINOPHEN 325 MG TAB PO PRN (00:27)
[2021-08-04] MEDS ORDERED: SODIUM CHLORIDE 0.9% 1000ML 1,000 ML IV SCH (00:27)
[2021-08-04] MEDS ORDERED: LEVALBUTEROL 1.25MG/0.5ML NEB INH PRN (00:27)
[2021-08-04] MEDS ORDERED: PHARMACIST DISCHARGE MED REC CONSULT PRN (00:27)
[2021-08-04] MEDS ORDERED: IPRATROPIUM BROMIDE NEB SOLN 0.02% 2.5 ML VIAL INH PRN (00:27)
[2021-08-04] MEDS ORDERED: PIPERACILLIN/TAZOBACTAM 3.375 GM in DEXTROSE 5% 100 ML IV SCH (00:27)
[2021-08-04] MEDS ORDERED: PIPERACILL/TAZOBAC CONSULT ACTIVE PRN (00:27)
[2021-08-04] MEDS ORDERED: NITROGLYCERIN SL 0.4 MG/TAB TAB SL PRN (00:27)
[2021-08-04] MEDS ORDERED: ONDANSETRON INJ 2 MG/ML 2 ML VIAL IV PRN (00:27)
[2021-08-04] MEDS ORDERED: PIPERACILLIN/TAZOBACTAM 4.5 GM in DEXTROSE 5% 100 ML IV ONE (00:45)
[2021-08-04] MEDS: DOXYCYCLINE HYCLATE 100 MG in DEXTROSE 5% 100 ML IV SCH ×2 (01:03→13:58)
[2021-08-04] MEDS: SERTRALINE HCL 50 MG TABLET PO SCH ×2 (01:05→21:11)
[2021-08-04] MEDS: MAGNESIUM CHLORIDE 64MG DELAYED REL TAB PO SCH ×3 (01:05→21:11)
[2021-08-04] MEDS: dexAMETHasone 6 MG in SYRINGE 0 ML IV SCH ×2 (01:06→13:59)
[2021-08-04] MEDS: ENOXAPARIN INJ 40 MG/0.4 ML SYR SQ SCH ×2 (01:07→12:25)
[2021-08-04] MEDS: INSULIN ASPART PER UNIT SC SCH ×5 (01:08→20:57)
[2021-08-04] MEDS ORDERED: ALUMINUM/MAGNESIUM/SIMETH (MAALOX MAX) 30 ML UDC PO STA (02:48)
[2021-08-04] MEDS: PIPERACILLIN/TAZOBACTAM 4.5 GM in DEXTROSE 5% 100 ML IV SCH ×3 (06:12→21:59)
[2021-08-04] MEDS: PANTOprazole 40 MG TAB PO SCH (06:12)
[2021-08-04] MEDS: PREGABALIN 100 MG CAP PO SCH ×3 (08:14→21:11)
[2021-08-04 08:35] LABS: Eosinophils # (auto) 0.01 K/uL (0-0.5); Eosinophils % (auto) 0.6 %; Hematocrit (blood only) 30.8 % (42-52); Hemoglobin 10.8 g/dL (14.0-18.0); Immature Granulocytes # (auto) 0.01 K/uL (0.00-0.02); Immature Granulocytes % (auto) 0.6 %; Lymphocytes # (auto) 0.26 K/uL (1.2-3.4); Lymphocytes % (auto) 14.4 %; Mean Corpuscular Hemoglobin 29.7 pg (25-34); Mean Corpuscular Hgb Conc 35.1 g/dL (32-36); Mean Corpuscular Volume 84.6 fL (80-100); Mean Platelet Volume 11.6 fL (7.4-10.4); Monocytes # (auto) 0.12 K/uL (0.11-0.59); Monocytes % (auto) 6.7 %; Neutrophils % (auto) 77.7 %; Platelet Count 144 K/uL (130-400); RDW Coefficient of Variation 14.8 % (11.5-14.5); RDW Standard Deviation 46.2 fL (36.4-46.3); Red Blood Count 3.64 M/uL (4.7-6.1)
[2021-08-04] MEDS: INSULIN GLARGINE SOLOSTAR 100 UNITS/ML 3 ML PEN SQ SCH (08:47)
[2021-08-04 08:48] LABS: Base Excess ABG -1.1 mEq/L (-9-1.8); HCO3 ABG 23 mmol/L (19-24); Oxygen Saturation ABG 96.5 % (90-95); PCO2 ABG 38 mmHg (35-46); PO2 ABG 83 mmHg (80-95)
[2021-08-04 08:50] LABS: Allen Test Pos (Pos)
--- NOTE | 2021-08-04 09:02 | Magnetic Resonance Report ---
MR brain wo con CLINICAL HISTORY: Left-sided weakness for 6 days. Evaluate for possible CVA. COMPARISON STUDY: 12/12/2019 TECHNIQUE: Multiplanar multisequence images of the Brain were performed without IV contrast. Diffusi on weighted imaging and ADC mapping was also performed. FINDINGS: Extra-axial space: There is no evidence for a subdural hematoma, There are no extra-axial fluid carlyle ections. Ventricles and cisterns: The ventricles are normal in size and configuration. There is no evidence f or midline shift or mass effect. Parenchyma: There is no evidence for an acute hemorrhage or infarct. No acute diffusion abnormalities are noted on diffusion weighted imaging or ADC mapping. There is normal arriola-white differentiation. There is mild cerebral cortical atrophy present. Compared to the previous study, minimal bright sign al is again seen on FLAIR weighted sequences within the centrum semiovale and periventricular white m atter characteristic of remote small vessel disease. The sulci and gyri appear normal without effacem ent. The midline structures are unremarkable. The posterior fossa structures appear normal. There is no evidence for mass lesion. Osseous structures: Very mild mucosal thickening is present at the floors of both maxillary antra. Th e remaining paranasal sinuses are well aerated. The mastoid air cells are well aerated. Soft tissues: No focal soft tissue abnormalities are identified. IMPRESSION: 1. No acute intracranial abnormalities. 2. Mild cerebral cortical atrophy and minimal remote small vessel disease is again seen. 3. Minimal chronic maxillary sinusitis. ACT 112: Negative or not required by law. Electronically signed by: Edward Michaels M.D. 08/04/2021 9:01 AM
[2021-08-04 09:05] LABS: C Reactive Protein 9.63 mg/dl (0-0.5); Calcium 8.9 mg/dl (8.5-10.1); Chol HDL Ratio 4.5 (0-5); Creatinine Clr Calc Pharmacy 102.5 ml/min; Est GFR (African American) 91.8 ml/min; Est GFR (Non-African American) 79.2 ml/min; Potassium 4.1 mmol/L (3.5-5.1)
[2021-08-04 09:37] LABS: iSTAT Sodium 136 mmol/L (135-144)
[2021-08-04 09:38] LABS: iSTAT Arterial Blood Gas HCO3 23 meg/L (19-24); iSTAT Arterial Blood Gas pCO2 43 mmHg (35-46); iSTAT Arterial Blood Gas pH 7.33 (7.35-7.45); iSTAT Arterial Blood Gas pO2 110 mmHg (80-95); iSTAT Carbon Dioxide 24 mmol/L (24-31); iSTAT Hematocrit 33 % (42-52); iSTAT Hemoglobin 11.2 g/dl (14.0-18.0)
[2021-08-04 09:45] LABS: Estimated Average Glucose 131 mg/dl; Hemoglobin A1C 6.2 % (4.5-5.6)
--- NOTE | 2021-08-04 18:50 | Hospitalist Progress Note ---
Date of Service August 04, 2021 Assessment & Plan (1) Altered mental status: Plan: 65-year-old obese male with significant complicated past medical history presents with change in mental status for a few days duration Likely multifactorial including use of too much narcotics pain medication, COPD with possible infection, infection with COVID-19 virus, abdominal cellulitis, sleep apnea and has not been using BiPAP Symptoms improvement with use of Narcan in the emergency room remained asymptomatic since then Doubt any stroke does not have any neurological symptoms MRI has been negative-neurology consult has been canceled Has been on intravenous Zosyn and doxycycline for possible infection in the chest/abdomen Doubt any hepatic encephalopathy Echo of the heart showed-concentric LVH, normal LV wall motion, EF 60 to 65% no evidence of atrial septal defect Condition resolved Await culture results We will ask for PT and OT evaluation (2) COVID-19 virus infection: Plan: He is vaccinated x2 No known contact and does not have any respiratory symptoms COVID-19 testing positive Will not give any remdesivir or any other treatment except dexamethasone which will improve COPD exacerbation (3) AARON (acute kidney injury): Plan: Creatinine has noted to be 1.75 on admission Received cautious amount of intravenous fluid Creatinine is 1.0 as of 08/04/2021 (4) ENRIQUE (obstructive sleep apnea): Plan: Strongly advised to use BiPAP at home BiPAP machine at home is broken which needs to be fixed (5) Diabetes mellitus with diabetic polyneuropathy: Plan: Will hold Metformin We will put him on SSI (6) Liver cirrhosis: Plan: History of stenosis No evidence of any (7) Abdominal wall cellulitis: Plan: Recent hernia surgery Mild cellulitis involving the surgical site Chronic medical conditions including chronic pain, depression,GERD,Obesity remain stable. DVT prophylaxis Lovenox CODE STATUS Full Admission and Anticipated Discharge Date Admission Date: August 03, 2021 Subjective 08/04/2021 Patient was seen and examined in telemetry He was admitted with change in mental status and noted to have not been using his BiPAP for the last few days He was diagnosed to have positive COVID on Tuesday home With increasing confusion he was brought into the emergency room with 1 dose of Narcan he was noted to be significantly improved from his drowsiness and confusion Denies any more confusion this morning examination Review of Systems Review of Systems: All systems reviewed and are unremarkable except as noted below Neurologic: Denies any neurological symptoms Physical Exam Physical Exam: Lying in bed comfortably Constitutional: well developed, well nourished and + morbidly obese; not ill appearing Eyes: PERRL, conjunctivae normal, anicteric sclerae ENMT: external ear and nose normal, oropharynx normal Neck: trachea midline, no thyromegaly Respiratory: no respiratory distress Auscultation: + diminished lung sounds, + crackles (Occasional crackles at the bases) and + wheezes (Minimal wheezing) Cardiovascular: Rate/Rhythm: regular rate and regular rhythm; not tachycardic Heart Sounds: normal S1 and normal S2; no murmur Extremities: + edema (1+ edema on the right side and he has a BKA on the left) Gastrointestinal (Abdomen): Inspection/Auscultation: + abdomen distended and normal bowel sounds Percussion/Palpation: + abdomen tender (Milligrams has been hernia repair site) and abdomen soft Musculoskeletal: No acute arthritis in any joint Neurologic: No neurological symptoms Results & Data Results & Data ([place]) Vital Signs (Past 12 Hours) Vital Signs Temp Pulse Pulse Resp BP Pulse Ox 08/04/21 16:13 36.5 C 76 20 110/68 93 08/04/21 09:56 86 08/04/21 07:58 36.4 C L 85 18 105/66 94 Laboratory Results Short CBC 08/04/21 Range/Units 08:21 WBC 1.80 L (4.8-10.8) K/uL Hgb 10.8 L (14.0-18.0) g/dL Hct 30.8 L (42-52) % Plt Count 144 (130-400) K/uL BMP 08/04/21 08:21 Sodium 134 L Potassium 4.1 Chloride 103 Carbon Dioxide 22 BUN 41 H Creatinine 1.00 D Glucose 154 H Calcium 8.9 Medications Administered Current Inpatient Medications Acetaminophen (Acetaminophen 325 Mg Tab) 650 mg PO Q4H PRN PRN Reason: Pain or Fever Stop: 09/03/21 00:26 Enoxaparin Sodium (Enoxaparin Inj 40 Mg/0.4 Ml Syr) 40 mg SQ Q12H [facility] Stop: 09/03/21 00:26 Last Admin: 08/04/21 12:25 Dose: 40 mg Documented by: Doxycycline Hyclate 100 mg/ (Dextrose) 110 mls @ 50 mls/hr IV Q12H [facility] Stop: 08/11/21 00:59 Last Infusion: 08/04/21 16:10 Dose: Infused Documented by: Dexamethasone 6 mg/ Syringe 1.5 mls @ 1 mls/min IV QAM [facility] Stop: 09/03/21 00:26 Last Admin: 08/04/21 13:59 Dose: 1 mls/min Documented by: Piperacillin Sod/Tazobactam (Sod 4.5 gm/ Dextrose) 120 mls @ 30 mls/hr IV Q8H [facility]; Protocol Stop: 08/11/21 05:59 Last Infusion: 08/04/21 18:10 Dose: Infused Documented by: Insulin Aspart (Insulin Aspart Per Unit) 0 units SC ACHS [facility] Stop: 09/03/21 00:26 Last Admin: 08/04/21 16:53 Dose: 4 units Documented by: Insulin Glargine (Insulin Glargine Solostar 100 Units/Ml 3 Ml Pen) 20 units SQ DAILY [facility] Stop: 09/03/21 08:59 Last Admin: 08/04/21 08:47 Dose: 20 units Documented by: Ipratropium [place] (Ipratropium [place] Neb Soln 0.02% 2.5 Ml Vial) 0.5 mg INH Q4H PRN PRN Reason: Shortness Of Breath or wheezin Stop: 09/03/21 00:26 Levalbuterol HCl (Levalbuterol 1.25mg/0.5ml Neb) 1.25 mg INH Q4H PRN PRN Reason: Shortness Of Breath or wheezin Stop: 09/03/21 00:26 Magnesium Chloride (Magnesium Chloride 64mg Delayed Rel Tab) 64 mg PO BID [facility] Stop: 09/03/21 00:26 Last Admin: 08/04/21 08:07 Dose: 64 mg Documented by: Miscellaneous Information (Pharmacist Discharge Med Rec Consult) 1 ea N/A UD PRN PRN Reason: Consult Stop: 09/03/21 00:26 Miscellaneous Information (Piperacill/Tazobac Consult Active) 1 ea N/A UD PRN PRN Reason: Consult Stop: 09/03/21 00:26 Naloxone HCl (Naloxone Hcl 0.4 Mg/1 Ml Vial/Carp) 0.4 mg IV Q5M PRN PRN Reason: Drowsiness Stop: 09/02/21 20:18 Nitroglycerin (Nitroglycerin Sl 0.4 Mg/Tab Tab) 0.4 mg SL Q5M PRN PRN Reason: Chest Pain Stop: 09/03/21 00:26 Ondansetron HCl (Ondansetron Inj 2 Mg/Ml 2 Ml Vial) 4 mg IV Q6H PRN PRN Reason: Nausea Stop: 09/03/21 00:26 Pantoprazole Sodium ([facility] 40 Mg Tab) [facility] Stop: 09/03/21 06:29 Last Admin: 08/04/21 06:12 Dose: 40 mg Documented by: Pregabalin (Pregabalin 100 Mg Cap) 100 mg PO TID [facility] Stop: 09/03/21 08:59 Last Admin: 08/04/21 13:59 Dose: 100 mg Documented by: Sertraline HCl (Sertraline Hcl 50 Mg Tablet) 150 mg PO [facility] Stop: 09/03/21 00:26 Last Admin: 08/04/21 01:05 Dose: 150 mg Documented by:
[2021-08-04] MEDS ORDERED: oxyCODONE HCL IR 5 MG TAB (IMMEDIATE RELEASE) PO PRN (19:24)
[2021-08-04] MEDS: oxyCODONE HCL 20 MG TABCR (OxyCONTIN) PO SCH (21:11)
[2021-08-05] MEDS: ENOXAPARIN INJ 40 MG/0.4 ML SYR SQ SCH ×2 (00:29→12:11)
[2021-08-05] MEDS: DOXYCYCLINE HYCLATE 100 MG in DEXTROSE 5% 100 ML IV SCH ×2 (01:54→12:11)
[2021-08-05] MEDS: PANTOprazole 40 MG TAB PO SCH (06:01)
[2021-08-05] MEDS: PIPERACILLIN/TAZOBACTAM 4.5 GM in DEXTROSE 5% 100 ML IV SCH ×2 (06:02→14:27)
[2021-08-05 06:39] LABS: Hematocrit (blood only) 31.6 % (42-52); Hemoglobin 10.4 g/dL (14.0-18.0); Immature Granulocytes # (auto) 0.02 K/uL (0.00-0.02); Immature Granulocytes % (auto) 0.6 %; Lymphocytes # (auto) 0.37 K/uL (1.2-3.4); Lymphocytes % (auto) 10.9 %; Mean Corpuscular Hemoglobin 27.9 pg (25-34); Mean Corpuscular Hgb Conc 32.9 g/dL (32-36); Mean Corpuscular Volume 84.7 fL (80-100); Mean Platelet Volume 11.8 fL (7.4-10.4); Monocytes # (auto) 0.37 K/uL (0.11-0.59); Monocytes % (auto) 10.9 %; Neutrophils # (auto) 2.65 K/uL (1.4-6.5); Neutrophils % (auto) 77.6 %; Platelet Count 137 K/uL (130-400); RDW Coefficient of Variation 14.4 % (11.5-14.5); Red Blood Count 3.73 M/uL (4.7-6.1); White Blood Count 3.41 K/uL (4.8-10.8)
[2021-08-05 07:06] LABS: Albumin Globulin Ratio 0.9 (0.9-2); Albumin Level 3.2 gm/dl (3.4-5.0); Bilirubin,Total 0.3 mg/dl (0.2-1.0); Calcium 8.9 mg/dl (8.5-10.1); Creatinine Clr Calc Pharmacy 124.8 ml/min; Est GFR (African American) 108.3 ml/min; Est GFR (Non-African American) 93.5 ml/min; Globulin 3.7 gm/dl (2.5-4.0); Potassium 3.9 mmol/L (3.5-5.1); Total Protein 6.9 gm/dl (6.0-8.3)
[2021-08-05] MEDS: dexAMETHasone 6 MG in SYRINGE 0 ML IV SCH (08:15)
[2021-08-05] MEDS: oxyCODONE HCL 20 MG TABCR (OxyCONTIN) PO SCH (08:15)
[2021-08-05] MEDS: MAGNESIUM CHLORIDE 64MG DELAYED REL TAB PO SCH (08:15)
[2021-08-05] MEDS: PREGABALIN 100 MG CAP PO SCH ×2 (08:15→14:27)
[2021-08-05] MEDS: INSULIN ASPART PER UNIT SC SCH ×2 (08:25→11:48)
[2021-08-05] MEDS: INSULIN GLARGINE SOLOSTAR 100 UNITS/ML 3 ML PEN SQ SCH (08:53)
[2021-08-05] MEDS ORDERED: oxyCODONE HCL IR 5 MG TAB (IMMEDIATE RELEASE) PO PRN (14:31)
--- NOTE | 2021-08-05 15:07 | Hospitalist Progress Note ---
Date of Service August 05, 2021 Assessment & Plan (1) Altered mental status: Plan: Patient is a 65 ye male presents with change in mental status for a few days duration Likely multifactorial: Narcotics pain medication, COPD, COVID-19 virus infection, abdominal cellulitis, sleep apnea and has not been using BiPAP Symptoms resolved with use of Narcan in ED -MRI Brain:No acute intracranial abnormalities. Mild cerebral cortical atrophy and minimal remote small vessel disease is again seen. Minimal chronic maxillary sinusitis. Empirically started on Zosyn, doxycycline>>> transition to Augmentin Minimize narcotic use as able Decrease Lyrica 100 mg 3 times daily Advised patient to use BiPAP regularly Also advised patient to follow-up with surgery upon discharge Blood cultures negative PT/OT eval completed (2) COVID-19 virus infection: Plan: Vaccinated x2 No known contact and does not have any respiratory symptoms COVID-19 testing positive Saturating well on room air Asymptomatic (3) AARON (acute kidney injury): Plan: Cr:1.75>0.82 Avoid nephrotoxic agents as able Monitor renal function (4) ENRIQUE (obstructive sleep apnea): Plan: Strongly advised to use BiPAP at home (5) Diabetes mellitus with diabetic polyneuropathy: Plan: hold Metformin SSI while hospitalized (6) Liver cirrhosis: (7) Abdominal wall cellulitis: Plan: Recent hernia surgery Mild cellulitis involving the surgical site Continue antibiotics as above Chronic pain Depression GERD Morbid Obesity BMI: 44 Continue home meds DVT Px Lovenox sq CODE STATUS Full Code Admission and Anticipated Discharge Date Admission Date: August 03, 2021 Subjective Patient is seen and examined at bedside States having minimal discomfort at surgical site Denies any cough, shortness of breath, chest pain, dizziness, nausea, abdominal pain Offers no other complaints Review of Systems Review of Systems: All systems reviewed & are unremarkable except as noted in Subjective Physical Exam Physical Exam: Physical Exam: Vitals signs as noted above General Appearance:Morbidly Obese, no apparent distress Head: normocephalic, Atraumatic Eyes: normal inspection, EOMI Neck: supple, Trachea midline Respiratory/Chest: Decreased breath sounds, CTA, No accessory muscle use Cardiovascular: S1, S2, No murmur Abdomen/GI:Soft, Non tender, Bowel sounds present, + Abdominal surgical site in sang Extremities/Musculoskeletal:normal inspection, RLE edema, Left BKA Neurologic/Psych:AAOX3, grossly no focal neurological deficits Skin: normal color, warm Results & Data Results & Data ([facility]) Vital Signs (Past 12 Hours) Vital Signs Temp Pulse Pulse Resp BP Pulse Ox 08/05/21 14:58 36.5 C 67 19 135/86 95 08/05/21 11:40 36.4 C L 71 18 135/84 94 08/05/21 07:41 36.9 C 71 18 133/81 95 08/05/21 07:00 80 08/05/21 04:19 36.5 C 65 20 143/68 H 95 Laboratory Results Short CBC 08/05/21 Range/Units 06:03 WBC 3.41 L (4.8-10.8) K/uL Hgb 10.4 L (14.0-18.0) g/dL Hct 31.6 L (42-52) % Plt Count 137 (130-400) K/uL BMP 08/05/21 06:03 Sodium 137 Potassium 3.9 Chloride 106 Carbon Dioxide 24 BUN 32 H Creatinine 0.82 Glucose 126 H Calcium 8.9 Liver Function 08/05/21 Range/Units 06:03 Total Bilirubin 0.3 (0.2-1.0) mg/dl AST 25 (13-39) U/L ALT 13 (7-52) U/L Alkaline Phosphatase 94 (34-104) U/L Albumin 3.2 L (3.4-5.0) gm/dl
--- NOTE | 2021-08-05 16:14 | Discharge Summary ---
Date of Service August 05, 2021 Admission HPI Per Admitting Provider CHIEF COMPLAINT: Confusion, COVID. HISTORY OF PRESENT ILLNESS: This is a 65-year-old male with past medical history significant for type 2 diabetes, history of acute hypercarbic respiratory failure, history of COPD, sleep apnea, hyperlipidemia, Charcot feet due to diabetes, diabetic arthropathy, history of hyperkalemia, history of pneumonia, history of liver cirrhosis, portal hypertension, hypertension, morbid obesity, reflux esophagitis, history of AARON, history of spinal stenosis, history of cellulitis of right lower extremity, history of left below-knee amputation, history of opioid overdose, anxiety, depression, history of altered mental status in the past. In April, the patient was admitted for severe sepsis. At that time, he was intubated and he was not using BiPAP because he got new machine and was not tolerating it at that time. He also had pneumonia, improved with antibiotics, and at that time, he also had ATN secondary to septic shock requiring dialysis. He improved and got discharged, and again he was admitted in June with incarcerated umbilical hernia, status post repair; he did fine and got discharged. The patient is now using the BiPAP machine at home, but as per the , it broke some time back and is waiting for a new one. The does not know how to get it and he is not using the BiPAP. In the last few days, he was acting confused at home on and off and he was also complaining of some tingliness in his left fingers and also some weakness on the left side. She did home COVID test, which came back positive. She notified the family doctor and was advised to come to the ER today. COVID test came back at home on Tuesday positive. The patient was brought into the hospital. His venous Doppler shows no DVT. CT of the head was with no acute findings. CT abdomen and pelvis is showing possible cellulitis at the umbilical hernia repair site. His creatinine is again went upto 1.75.Patient became more somnolent in ER, venous blood gasses were done, pH of 7.21, but the patient is also on oxycodone, OxyContin at home and he was given naloxone, then the patient woke up and is more alert and awake. The patient is on BiPAP currently. Now, the patient is able to talk, would tell his name, knows his date of , knows that he is in the hospital, could not tell today's date, but the patient knows that he has been diagnosed with COVID. He thinks he came to the hospital because of COVID, but declines any weakness. As per the also, the patient did not have any COVID symptoms of any headache, shortness of breath, cough, abdominal pain, or diarrhea. The patient also denies them. He was complaining of back pain as per . The patient ambulates okay at home, but recently because of back pain, not ambulating much. Lately drinking a lot of water, but not eating much. The patient denies any chest pain, no shortness of breath. No blurred visions, no runny nose, no sore throat, no abdominal pain. Normal bowel and bladder movements. Hemodynamically stable. Admission Exam Per Admitting Provider PHYSICAL EXAMINATION: GENERAL: The patient is morbidly obese, currently not in acute distress. VITAL SIGNS: Temperature 36.2, pulse 107, respiratory rate 19, blood pressure 114/97, oxygen 100% on nasal cannula. HEENT: Pupils equal, round and reactive to light. Oral mucosa moist. NECK: No JVD. No neck masses. CARDIOVASCULAR: S1 and S2 heard. Regular rate and rhythm. No murmur, no gallop. RESPIRATORY SYSTEM: Normal AP diameter. No accessory muscle use. No wheezing, no crackles. ABDOMEN: Soft. Umbilical hernia surgical site is erythematous, slightly wet. No active drainage seen. 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 Right leg edema seen. No erythema seen. Principal Diagnosis Acute metabolic encephalopathy Acute kidney injury COVID-19 infection ENRIQUE Abdominal wall cellulitis Discharge Data Allergies Allergy/AdvReac Type Severity Reaction Status Date / Time ketorolac Allergy Mild BURNING Verified 08/03/21 15:52 SENSATION ciprofloxacin [From Cipro] AdvReac Intermediate upset Verified 08/03/21 15:52 stomach tramadol AdvReac Intermediate GI UPSET Verified 08/03/21 15:52 Consultations 08/03/21 19:09 ED Decision to Admit Stat Ordered Studies 08/03/21 13:54 CT head/brain wo con Stat 08/03/21 16:14 CT abd pelvis wo con Stat US venous doppler LE RT Stat 08/04/21 00:27 MR brain wo con Routine Hospital Course (1) Altered mental status: Patient is a 65 ye male presents with change in mental status for a few days duration Likely multifactorial: Narcotics pain medication, COPD, COVID-19 virus infection, abdominal cellulitis, sleep apnea and has not been using BiPAP Symptoms resolved with use of Narcan in ED -MRI Brain:No acute intracranial abnormalities. Mild cerebral cortical atrophy and minimal remote small vessel disease is again seen. Minimal chronic maxillary sinusitis. Empirically started on Zosyn, doxycycline>>> transition to Augmentin Minimize narcotic use as able Decrease Lyrica 100 mg 3 times daily Advised patient to use BiPAP regularly Also advised patient to follow-up with surgery upon discharge Blood cultures negative PT/OT eval completed (2) COVID-19 virus infection: Vaccinated x2 No known contact and does not have any respiratory symptoms COVID-19 testing positive Saturating well on room air Asymptomatic (3) AARON (acute kidney injury): Cr:1.75>0.82 Avoid nephrotoxic agents as able Monitor renal function (4) ENRIQUE (obstructive sleep apnea): Strongly advised to use BiPAP at home (5) Diabetes mellitus with diabetic polyneuropathy: hold Metformin SSI while hospitalized (6) Liver cirrhosis: (7) Abdominal wall cellulitis: Recent hernia surgery Mild cellulitis involving the surgical site Continue antibiotics as above Chronic pain Depression GERD Morbid Obesity BMI: 44 Continue home meds DVT Px Lovenox sq CODE STATUS Full Code Total Time Total Time Spent Total Time Spent (In Minutes): 45 minutes Discharge Plan Discharge Items Patient Disposition: Home - Self-Care Reason For Visit: AMS Discharge Diagnosis: Acute metabolic encephalopathy Acute kidney injury COVID-19 infection ENRIQUE Abdominal wall cellulitis Activity: Per Instructions section Exercise/Sports: Wait until after follow-up appointment Non-emergency contact: Primary Care Provider and Surgeon Call non-emergency contact if: you have any medication questions, your symptoms worsen, your pain is concerning for you and you have a fever Follow-up/Referrals: Karlie Bates DO [Primary Care Provider] - (Date & Time 08/14/2021 11:20 AM Provider Karlie Bates DO Department [facility] ) Stuart Walls MD [Physician] - (Date & Time 08/11/2021 3:45 PM Provider Stuart Walls MD Department General Surgery, [facility] ) Diet: Carb Consistent or DM2 and Heart Healthy Addtl Attending Provider Instructions: Follow-up with your primary care physician in 1 week. Please call for appointment Follow-up with your surgeon as scheduled. --- Complete the antibiotic course as prescribed. Seek immediate medical attention if your symptoms reoccur or worsen Please take all medications as instructed on discharge list below. Please call if you have any questions or problems. You can reach a [facility] hospitalist on duty at [facility] 24 hours a day by calling [phone] Home Isolation COVID-19 Instructions The following information about Home Isolation is from the CDC Website: https://www.cdc.gov/coronavirus/2019-ncov/hcp/tjksszfz-cbfxjqe-jyydbk.html Stay home except to get medical care People who are mildly ill with COVID-19 are able to isolate at home during their illness. You should restrict activities outside your home, except for getting medical care. Do not go to work, school, or public areas. Avoid using public transportation, ride-sharing, or taxis. Separate yourself from other people and animals in your home People: As much as possible, you should stay in a specific room and away from other people in your home. Also, you should use a separate bathroom, if available. Animals: You should restrict contact with pets and other animals while you are sick with COVID-19, just like you would around other people. Although there have not been reports of pets or other animals becoming sick with COVID-19, it is still recommended that people sick with COVID-19 limit contact with animals until more information is known about the virus. When possible, have another member of your household care for your animals while you are sick. If you are sick with COVID-19, avoid contact with your pet, including petting, snuggling, being kissed or licked, and sharing food. If you must care for your pet or be around animals while you are sick, wash your hands before and after you interact with pets and wear a face mask. Call ahead before visiting your doctor If you have a medical appointment, call the healthcare provider and tell them that you have or may have COVID-19. This will help the healthcare providers office take steps to keep other people from getting infected or exposed. Wear a face mask You should wear a face mask when you are around other people (e.g., sharing a room or vehicle) or pets and before you enter a healthcare providers office. If you are not able to wear a face mask (for example, because it causes trouble breathing), then people who live with you should not stay in the same room with you, or they should wear a face mask if they enter your room. Cover your coughs and sneezes Cover your mouth and nose with a tissue when you cough or sneeze. Throw used tissues in a lined trash can. Immediately wash your hands with soap and water for at least 20 seconds or, if soap and water are not available, clean your hands with an alcohol-based hand planning manager that contains at least 60% alcohol. Clean your hands often Wash your hands often with soap and water for at least 20 seconds, especially after blowing your nose, coughing, or sneezing; going to the bathroom; and before eating or preparing food. If soap and water are not readily available, use an alcohol-based hand planning manager with at least 60% alcohol, covering all surfaces of your hands and rubbing them together until they feel dry. Soap and water are the best option if hands are visibly dirty. Avoid touching your eyes, nose, and mouth with unwashed hands. Avoid sharing personal household items You should not share dishes, drinking glasses, cups, eating utensils, towels, or bedding with other people or pets in your home. After using these items, they should be washed thoroughly with soap and water. Clean all high-touch surfaces everyday High touch surfaces include counters, tabletops, doorknobs, bathroom fixtures, toilets, phones, keyboards, tablets, and bedside tables. Also, clean any surfaces that may have blood, stool, or body fluids on them. Use a household cleaning spray or wipe, according to the label instructions. Labels contain instructions for safe and effective use of the cleaning product including precautions you should take when applying the product, such as wearing gloves and making sure you have good ventilation during use of the product. Monitor your symptoms Seek prompt medical attention if your illness is worsening (e.g., difficulty breathing).Beforeseeking care, call your healthcare provider and tell them that you have, or are being evaluated for, COVID-19. Put on a face mask before you enter the facility. These steps will help the healthcare providers office to keep other people in the office or waiting room from getting infected or exposed. Ask your healthcare provider to call the local or state health department. Persons who are placed under active monitoring or facilitated self- monitoring should follow instructions provided by their local health department or occupational health professionals, as appropriate. When working with your local health department check their available hours. If you have a medical emergency and need to call 911, notify the dispatch personnel that you have, or are being evaluated for COVID-19. If possible, put on a face mask before emergency medical services arrive. Discontinuing home isolation Patients with confirmed COVID-19 should remain under home isolation precautions until the risk of secondary transmission to others is thought to be low. The decision to discontinue home isolation precautions should be made on a [id number] basis, in consultation with healthcare providers and [facility] and [facility] health departments. Coronavirus disease 2019 (COVID-19) is a virus that causes a respiratory illness. It is caused by a coronavirus called 2019 novel coronavirus (2019- nCoV). There are many types of coronavirus. Coronaviruses are a very common cause of bronchitis. They may sometimes cause lung infection(pneumonia). Symptoms can range from mild to severe respiratory illness. These viruses are also foundin some animals. COVID-19 was first found in people in [facility], in late 2019. In 2020, several cases of COVID-19 have been confirmed in the [place] Public health officials are working to find the source. How the virus spreads is not yet fully known. It may be spread through droplets of fluid that a person coughs or sneezes into the air. It may be spread if you touch a surface with virus on it, such as a handle or object, and then touch your mouth. What are the symptoms of COVID-19? Some people have no symptoms or mild symptoms. Symptoms may appear 2 to 14 days after contact with the virus. Symptoms can include: Fever Coughing Trouble breathing What are possible complications from COVID-19? In many cases, this virus can cause infection (pneumonia) in both lungs. In some cases, this can cause . How is COVID-19 diagnosed? Your healthcare provider will ask about your symptoms. He or she will also ask about your recent travel and contact with sick people. Testing for the virus is only done through the CDC. If yourhealthcare provider thinks you may have COVID- 19, he or she will work with your local health department and the CDC on testing. Follow all instructions from your healthcare provider. COVID-19 is diagnosed by: Nasal and throat swab. A cotton-tipped swab is wiped inside your nose or throat. This is done to check for viruses in your nasal mucus. Sputum culture. A small sample of mucus coughed from your lungs (sputum) is collected if you have a cough. It is checked for the virus. How is COVID-19 treated? There is currently no medicine to treat the virus. Treatment is done to help your body while it fights the virus. This is known as supportive care. Supportive care may include: Pain medicine. These include acetaminophen and ibuprofen. They are used to help ease pain and reduce fever. Bed rest. This helps your body fight the illness. For severe illness, you may need to stay in the hospital. Care during severe illness may include: IV (intravenous) fluids.These are given through a vein to help keep your body hydrated. Oxygen. Supplemental oxygen or ventilation with a breathing machine (ventilator) may be given. This is done to keep enough oxygen in your body. Are you at risk for COVID-19? If youve been to a place where people have been sick with this virus, you are at risk for infection. You are at risk if you: Recently traveled to an affected area Had contact with a sick person who recently traveled to this area Had contact with a person who was diagnosed with COVID-19 How can COVID-19 be prevented? There is no vaccine yet. The best prevention is to not have contact with the virus. The CDC advises that people should not travel to areas where there are COVID-19 outbreaks right now for any reason that is not urgent. To help prevent spreading the infection, wash your hands often, or use an alcohol-basedhand planning manager. If you are in an area with COVID-19: Wash your hands often. Or use an alcohol-based hand planning manager often. Only touch your eyes, nose, or mouth with clean hands. Dont have contact with people who are sick. Follow local instructions about being in public. For example, you may be told to not use public transport for a period of time. Stay away from markets that have live or animals. Wash your hands after touching any animals. Don't touch animals that may be sick. Dont share eating or drinking tools with sick people. Dont kiss someone who is sick. Clean surfaces often with disinfectant. If you were in an area with COVID-19 in the last 14 days: Call your healthcare provider. He or she can talk with local health staff to see what action may be needed. Follow all instructions from your provider. Take your temperature every morning and evening for at least 14 days. This is to check for fever. Keep a record of the readings. Keep watch for symptoms of the virus. Tell your provider right away if you have symptoms. If you were in an area with COVID-19 and have a fever or other symptoms: Dont panic. Keep in mind that other illnesses can cause similar symptoms. Stay away from work, school, and public places. Limit physical contact with family members. Don't kiss anyone or share eating or drinking utensils. Clean surfaces you touch with disinfectant. This is to help prevent the virus from spreading. Call your healthcare provider. Explain that you have been exposed to COVID-19 and have symptoms. Do this before going to any hospital. Wait for instructions. Keep in mind that healthcare staff may wear protective equipment such as masks, gowns, gloves, and eye protection. You may be put in a separate room. This is to prevent the possible virus from spreading. Tell the healthcare staff about recent travel. This includes local travel on public transport. Staff may need to find other people you have been in contact with. Follow all instructions the healthcare staff give you. If you have been diagnosed with COVID-19 Follow all instructions from your healthcare provider. Dont leave your home, except to get medical care. Call your healthcare providers office before going. They can prepare and give you instructions. This will help prevent the virus from spreading. Dont go to work, school, or public areas. Dont use public transport or taxis. Stay away from other people in your home. Have them wear face masks around you. Dont share household items or food. Wear a face mask if you can. This includes at home or in a medical facility. Cover your face with a tissue when you cough or sneeze. Throw the tissue away. Wash your hands. Wash your hands often. Caregivers should: Follow all instructions from healthcare staff. Wear a face mask and protective clothing as advised. Wash hands often. Keep track of the sick persons symptoms. Clean surfaces, fabrics, and laundry thoroughly. Keep other people away from the sick person. When to call your healthcare provider Call your healthcare provider: If youve recently traveled and have symptoms If you have been diagnosed with COVID-19 and your symptoms are worse To learn more To find out more about COVID-19, visit the CDC website at www.cdc.gov/coronavirus/2019-ncov/index.html. [employer]. [address] [place] [address]. All rights reserved. This information is not intended as a substitute for professional medical care. Always follow your healthcare professional's instructions. This information has been adapted from [employer] Pending Studies at Discharge: No Stand-Alone Forms: My [facility] [employer], Smoking Cessation Medications and DC Order Prescriptions: New pregabalin [Lyrica] 100 mg Capsule 100 mg PO TID Qty: 30 RF: 0 amoxicillin-pot clavulanate [Augmentin] 500-125 mg tablet 1 tab PO BID Qty: 10 RF: 0 Continued metformin 500 mg tablet extended release 24 hr 1,000 mg PO BID RF: 0 Lantus Solostar U-100 Insulin 100 unit/mL (3 mL) Insulin Pen 20 unit SUBCUT DAILY RF: 0 sertraline 100 mg tablet 150 mg PO HS RF: 0 pantoprazole 40 mg tablet,delayed release (DR/EC) 40 mg PO DAILYBB RF: 0 oxycodone [OxyContin] 20 mg tablet,oral only,ext.rel.12 hr 20 mg PO Q12 RF: 0 losartan 100 mg tablet 100 mg PO DAILY@1530 RF: 0 Mag 64 64 mg tablet,delayed release (DR/EC) 64 mg PO BID RF: 0 Changed oxycodone 5 mg tablet 5 mg PO Q6H PRN (Reason: Pain) Qty: 0 RF: 0 Discontinued pregabalin 225 mg capsule 225 mg PO TID RF: 0 Discharge Orders: Discharge Order (Routine); Ordered 08/05/21 Ordered By: Jose Lantigua/Other Patient Handouts: Managing Type 2 Diabetes, Special Foot Care for Diabetes, Managing Diabetes When You're Ill Admission Data Admit Date/Time: 08/03/21 20:45 Attending Provider: Jose Mckeon Admit Provider: Rogelio Marie Primary Care Provider: Karlie Bates Other Providers: Rogelio Marie
--- NOTE | 2021-08-10 10:07 | Coding Query ---
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 Please assist us with the question(s) below: Coding Question(s): There is documentation in the chart and on Discharge Summary of, "Abdominal wall cellulitis: Recent hernia surgery Mild cellulitis involving the surgical site Continue antibiotics as above". Please specify below, in your clinical opinion, regarding the Abdominal Wall Cellulitis. ( ) Abdominal Wall Cellulitis is likely a Complication of the recent hernia surgery ( ) Abdominal Wall Cellulitis is Not a Complication of the recent hernia surgery (X ) Other: Please Specify Unable to determine. Physician's Response(s): Thank you Rani Nick Principal Diagnosis: "that condition established after study, to be chiefly responsible for occasioning the admission of the patient to the hospital for care." Co-Existing Principal Diagnosis: "when two or more diagnoses equally meet the criteria for principal diagnosis as determined by the circumstances of admission, diagnostic work up, and/or therapy provided, and the Alphabetic Index, Tabular List, or another coding guideline does not provide sequencing direction, any one of the diagnoses may be sequenced first." "When the physician has documented what appears to be a current diagnosis in the body of the record, but has not included the diagnosis in the final diagnostic statement, the physician should be asked whether the diagnosis should be added." (Source Coding [facility] 2 QTR90. p3-4) JESSIKA
== END 2021-08-05 16:45 | disposition home or self-care (01) | DRG 602 ==
LOC: ED 13:40 → 2S 20:45 → SUATTDRO 20:45 → 2S 23:43

== ENCOUNTER 2021-11-20 10:56 | Inpatient (IN) ==
--- NOTE | 2021-11-20 11:26 | Emergency Department Note ---
Impression & Plan Respiratory failure, Narcotic abuse, AARON (acute kidney injury), Acute hyperkalemia, Hypoxia ED Provider Note NAME: MOOSE ANN AGE: 66 SEX: M : 1955 ARRIVES VIA: Ambulance INFORMANT: Patient, ED PROVIDER(S): Mike Lee DO CHIEF COMPLAINT: Altered mental status HPI: Patient is a 66-year-old male with past medical history of encephalopathy, obstructive sleep apnea, narcotic abuse, respiratory failure, diabetes, incarcerated hernia, osteomyelitis who presents to the ER for confusion. He notes he was drinking last night and and this morning around 8 AM he took several pills of his narcotics. He believes that he probably took more than what he should have and may have taken extra of his long-acting medications. He denies any headache or change in vision. No chest pain or shortness of breath. No nausea vomiting or diarrhea. called EMS and was brought in. ROS: See above HPI for pertinent positives & negatives. A total of 10 systems reviewed and were otherwise negative. PAST MEDICAL HISTORY:See Below PAST SURGICAL HISTORY:See Below FAMILY HISTORY:See Below SOCIAL HISTORY:See Below HOME MEDICATIONS:See Below ALLERGIES:See Below VITALS:See Below PHYSICAL EXAMINATION: GENERAL: Sitting up in bed, giving awakens to gentle sternal rub falls back asleep quickly on nasal cannula EYE EXAM: normal conjunctiva. OROPHARYNX: no exudate, no erythema, lips, buccal mucosa, and tongue normal and mucous membranes are moist NECK: supple, no nuchal rigidity, no adenopathy, non-tender LUNGS: Clear to auscultation. Normal chest wall mechanics HEART: no murmurs, S1 normal and S2 normal ABDOMEN: abdomen soft, non-tender, normo-active bowel sounds, no masses, no rebound or guarding. UPPER EXTREMITIES: upper extremities are grossly normal. LOWER EXTREMITIES: Left lower extremity with a BKA NEURO EXAM: Normal sensorium, cranial nerves II-XII grossly intact, normal speech, no gross weakness of arms, no gross weakness of legs. MEDICAL DECISION MAKING: Patient is a 66-year-old male who presents ER for the boasting complaint. Initially upon arrival he was sleepy but would awaken to voice. Blood work was obtained and showed no significant leukocytosis and mild anemia 12. ABG with a pH of 7.2. Bicarb at 18. BMP with hyponatremia 125 and hyperkalemia 6.1. Creatinine at 3.9. LFTs bilirubin was unremarkable. Lipase was normal. UA was contaminated. Moy was placed and he put out close to 2 L. Salicylates were negative. Acetaminophen was negative. Alcohol was negative. COVID was negative. CT head was negative. X-ray was unremarkable. Throughout his stay in the ER his mentation continued to decline and he became unresponsive to a sternal rub. He was given a total of 0.4 of Narcan. After this he woke up and was back to his baseline. He was little jittery. He was placed on a Narcan drip at 0.2. After initial bolus he gradually fell back asleep and awaken to soft voice and will follow commands. This was discussed with the hospitalist as well as Tracy from [facility]. Triage Nursing notes reviewed. Limited review of prior medical records performed Vital Signs: reviewed and remarkable for hypoxic Differential diagnosis: Differential diagnoses includes but is not limited to toxic, metabolic, infectious, traumatic, cardiac, neurologic, hematologic, psychiatric and inflammatory etiologies. ER treatment provided: See below Diagnostics interpreted by me: ECG: Sinus tachycardia rate of 111 Normal axis No PVCs QTC 478 Cardiac Monitoring: An order was placed for continuous cardiac monitoring. The monitor shows a rate of 105 with sinus rhythm. Laboratory studies: As stated above and show below. Imaging studies: The head was negative Portable AP upright 1 view of the chest was unremarkable Consultation(s): Discussed with measuring clerk Dr. Patel who is aware the patient Discussed with Bonnie from [facility] who accept the patient Procedures: none Critical Care: I have personally spent 32 minutes of critical care time in the direct management of this patient. This includes bedside care, interpretation of diagnostic studies, and testing, discussion with consultants, patient, and family members, and other required patient management activities. This 32 min utes is in excess of all separately billable procedures. Past Med/Surg History Medical History Abdominal pain Acquired claw toe of left foot Acute respiratory failure AARON (acute kidney injury) Altered mental status Anxiety Callus Charcot's joint of right foot Charcot's joint, left ankle and foot Chronic pain Chronic ulcer of left midfoot Depression Diabetes mellitus with diabetic polyneuropathy Diabetic ulcer of left foot DMII (diabetes mellitus, type 2) Fever GERD (gastroesophageal reflux disease) HTN (hypertension) Liver cirrhosis Metabolic encephalopathy Morbid obesity due to excess calories Multiple rib fractures involving four or more ribs Narcotic overdose OA (osteoarthritis) of knee ENRIQUE (obstructive sleep apnea) SBO (small bowel obstruction) Shortness of breath Smoker Surgical History H/O knee surgery History of bilateral knee replacement S/P AKA (above knee amputation) unilateral Left S/P trigger finger release Family History Father Lung cancer Mother Hypertension Dementia Social History Smoking Status: Never smoker Tobacco Type: Cigarettes Cigarettes Per Day: 2-3; Second Hand Exposure: No; Hx Alcohol Use: Yes Alcohol type: beer Hx Substance Use: No Preferred Language: Latvian Communication Ability: Effective Visual Impairment: No Limitations [employer] Required: No Beliefs That Will Affect Care: None marital status: Current Living Situation: Spouse Current Living Situation Comment: home Feels Safe at Home: Yes Assistive Devices: Prosthesis and Walker Allergies Allergies Allergy/AdvReac Type Severity Reaction Status Date / Time ketorolac Allergy Mild BURNING Verified 11/20/21 14:36 SENSATION ciprofloxacin [From Cipro] AdvReac Intermediate upset Verified 11/20/21 14:36 stomach tramadol AdvReac Intermediate GI UPSET Verified 11/20/21 14:36 Home Meds Home Medications Medication Instructions Recorded Confirmed insulin glargine 100 unit/mL (3 20 unit SUBCUT .DAILY@NOON 12/12/19 11/20/21 mL) subcutaneous pen (Lantus Solostar U-100 Insulin) metformin 500 mg tablet,extended 1,000 mg PO BID 12/12/19 11/20/21 release 24 hr pantoprazole 40 mg tablet,delayed 40 mg PO DAILYBB 11/23/20 11/20/21 release sertraline 100 mg tablet 150 mg PO HS 11/23/20 11/20/21 losartan 100 mg tablet 100 mg PO DAILY@1530 07/02/21 11/20/21 oxycodone 10 mg tablet,crush 10 mg PO BID 11/20/21 11/20/21 resistant,extended release 12 hr (OxyContin) oxycodone 5 mg tablet 5 mg PO Q5H PRN 11/20/21 11/20/21 pregabalin 200 mg capsule 200 mg PO TID 11/20/21 11/20/21 Results & Data (ED) Vital Signs Vital Signs - 24 hr 11/20/21 10:52 11/20/21 11:04 11/20/21 11:10 Temperature 36.7 C Temperature Source Oral Pulse Rate 112 H 112 H 111 H Pulse Rate from SpO2 Sensor 112 H 110 H Pulse Rhythm Regular Pulse Strength Normal Respiratory Rate 12 17 29 H Respiratory Effort / Characteristics Respiratory Depth Shallow Respiratory Pattern Blood Pressure 120/63 Blood Pressure Mean 82 Blood Pressure Position Lying Pulse Oximetry 77 L 91 100 Oxygen Delivery Method Room Air Room Air Oxygen Flow Rate 0 Fraction of Inspired Oxygen Sepsis Recent Fever Within 48 Hours No Sepsis New/Unexplained Change in Mental Status No Sepsis Action Taken by Nursing No Action Required End-Tidal CO2 Oxygen Flow Rate - Titration 2 Pulse Oximetry Post Tiitration 98 11/20/21 11:17 11/20/21 11:20 11/20/21 11:26 Temperature Temperature Source Pulse Rate 111 H 109 H Pulse Rate from SpO2 Sensor 110 H Pulse Rhythm Pulse Strength Respiratory Rate 14 Respiratory Effort / Characteristics Respiratory Depth Respiratory Pattern Blood Pressure 102/63 Blood Pressure Mean 76 Blood Pressure Position Pulse Oximetry 98 98 Oxygen Delivery Method [place] Oxygen Flow Rate 15 Fraction of Inspired Oxygen Sepsis Recent Fever Within 48 Hours Sepsis New/Unexplained Change in Mental Status Sepsis Action Taken by Nursing End-Tidal CO2 Oxygen Flow Rate - Titration Pulse Oximetry Post Tiitration 11/20/21 11:30 11/20/21 11:40 11/20/21 11:50 Temperature Temperature Source Pulse Rate 113 H 111 H 110 H Pulse Rate from SpO2 Sensor 113 H 111 H 111 H Pulse Rhythm Pulse Strength Respiratory Rate 18 Respiratory Effort / Characteristics Respiratory Depth Respiratory Pattern Blood Pressure 120/63 Blood Pressure Mean 82 Blood Pressure Position Pulse Oximetry 94 91 96 Oxygen Delivery Method Oxygen Flow Rate Fraction of Inspired Oxygen Sepsis Recent Fever Within 48 Hours Sepsis New/Unexplained Change in Mental Status Sepsis Action Taken by Nursing End-Tidal CO2 Oxygen Flow Rate - Titration Pulse Oximetry Post Tiitration 11/20/21 12:00 11/20/21 12:10 11/20/21 12:26 Temperature Temperature Source Pulse Rate 111 H 112 H Pulse Rate from SpO2 Sensor 113 H 113 H 111 H Pulse Rhythm Pulse Strength Respiratory Rate 17 18 Respiratory Effort / Characteristics Respiratory Depth Respiratory Pattern Blood Pressure 145/75 H Blood Pressure Mean 98 Blood Pressure Position Pulse Oximetry 98 98 100 Oxygen Delivery Method Oxygen Flow Rate Fraction of Inspired Oxygen Sepsis Recent Fever Within 48 Hours Sepsis New/Unexplained Change in Mental Status Sepsis Action Taken by Nursing End-Tidal CO2 Oxygen Flow Rate - Titration Pulse Oximetry Post Tiitration 11/20/21 12:28 11/20/21 12:30 11/20/21 12:40 Temperature Temperature Source Pulse Rate 109 H 112 H 109 H Pulse Rate from SpO2 Sensor 112 H 111 H 110 H Pulse Rhythm Pulse Strength Respiratory Rate 24 21 17 Respiratory Effort / Characteristics Respiratory Depth Respiratory Pattern Blood Pressure 124/79 108/60 Blood Pressure Mean 94 76 Blood Pressure Position Pulse Oximetry 100 99 92 Oxygen Delivery Method Oxygen Flow Rate Fraction of Inspired Oxygen Sepsis Recent Fever Within 48 Hours Sepsis New/Unexplained Change in Mental Status Sepsis Action Taken by Nursing End-Tidal CO2 Oxygen Flow Rate - Titration Pulse Oximetry Post Tiitration 11/20/21 12:50 11/20/21 13:00 11/20/21 13:10 Temperature Temperature Source Pulse Rate 109 H 114 H 110 H Pulse Rate from SpO2 Sensor 110 H 114 H Pulse Rhythm Pulse Strength Respiratory Rate 29 H 24 Respiratory Effort / Characteristics Respiratory Depth Respiratory Pattern Blood Pressure 159/82 H Blood Pressure Mean 107 Blood Pressure Position Pulse Oximetry 89 L 100 Oxygen Delivery Method Oxygen Flow Rate Fraction of Inspired Oxygen Sepsis Recent Fever Within 48 Hours Sepsis New/Unexplained Change in Mental Status Sepsis Action Taken by Nursing End-Tidal CO2 Oxygen Flow Rate - Titration Pulse Oximetry Post Tiitration 11/20/21 13:20 11/20/21 13:30 11/20/21 13:40 Temperature Temperature Source Pulse Rate 106 H 104 H 102 H Pulse Rate from SpO2 Sensor 107 H 99 H 104 H Pulse Rhythm Pulse Strength Respiratory Rate 14 6 L 3 L Respiratory Effort / Characteristics Respiratory Depth Respiratory Pattern Blood Pressure 125/79 Blood Pressure Mean 94 Blood Pressure Position Pulse Oximetry 100 84 L 100 Oxygen Delivery Method Oxygen Flow Rate Fraction of Inspired Oxygen Sepsis Recent Fever Within 48 Hours Sepsis New/Unexplained Change in Mental Status Sepsis Action Taken by Nursing End-Tidal CO2 33 35 35 Oxygen Flow Rate - Titration Pulse Oximetry Post Tiitration 11/20/21 13:50 11/20/21 14:00 11/20/21 14:10 Temperature Temperature Source Pulse Rate 104 H 105 H 107 H Pulse Rate from SpO2 Sensor 105 H 106 H 108 H Pulse Rhythm Pulse Strength Respiratory Rate 7 L 6 L 3 L Respiratory Effort / Characteristics Respiratory Depth Respiratory Pattern Blood Pressure 130/73 Blood Pressure Mean 92 Blood Pressure Position Pulse Oximetry 100 100 100 Oxygen Delivery Method Oxygen Flow Rate Fraction of Inspired Oxygen Sepsis Recent Fever Within 48 Hours Sepsis New/Unexplained Change in Mental Status Sepsis Action Taken by Nursing End-Tidal CO2 35 23 16 Oxygen Flow Rate - Titration Pulse Oximetry Post Tiitration 11/20/21 14:12 11/20/21 14:20 11/20/21 14:30 Temperature Temperature Source Pulse Rate 104 H 106 H 103 H Pulse Rate from SpO2 Sensor 104 H 105 H Pulse Rhythm Pulse Strength Respiratory Rate 17 0 L 0 L Respiratory Effort / Characteristics Non-Labored Spontaneous Respiratory Depth Normal Respiratory Pattern Regular Blood Pressure 121/66 Blood Pressure Mean 84 Blood Pressure Position Pulse Oximetry 100 100 99 Oxygen Delivery Method Oxygen Flow Rate Fraction of Inspired Oxygen 35 Sepsis Recent Fever Within 48 Hours Sepsis New/Unexplained Change in Mental Status Sepsis Action Taken by Nursing End-Tidal CO2 Oxygen Flow Rate - Titration Pulse Oximetry Post Tiitration 11/20/21 14:40 Temperature Temperature Source Pulse Rate 105 H Pulse Rate from SpO2 Sensor 104 H Pulse Rhythm Pulse Strength Respiratory Rate 0 L Respiratory Effort / Characteristics Respiratory Depth Respiratory Pattern Blood Pressure Blood Pressure Mean Blood Pressure Position Pulse Oximetry 96 Oxygen Delivery Method Oxygen Flow Rate Fraction of Inspired Oxygen Sepsis Recent Fever Within 48 Hours Sepsis New/Unexplained Change in Mental Status Sepsis Action Taken by Nursing End-Tidal CO2 Oxygen Flow Rate - Titration Pulse Oximetry Post Tiitration Laboratory Data Result diagrams: 11/20/21 11:28 11/20/21 11:28 Lab Results 11/20/21 11/20/21 11/20/21 Range/Units 11:28 11:28 11:28 WBC 11.68 H (4.8-10.8) K/ul RBC 4.48 L (4.63-6.08) M/uL Hgb 12.0 L (14.0-18.0) g/dl Hct 39.8 L (40.1-51.0) % MCV 88.8 (80.0-100.0) fL MCH 26.8 (25.0-34.0) pg MCHC 30.2 L (32.0-36.0) g/dL RDW Std Deviation 52.7 H (36.4-46.3) fL RDW Coeff of Madelyn 16.3 H (11.5-14.5) % Plt Count 217 (130-400) K/uL MPV 11.6 (9.4-12.4) fL Immature Gran % (Auto) 0.9 % Neut % (Auto) 91.7 % Lymph % (Auto) 2.7 % Talbot % (Auto) 4.6 % Eos % (Auto) 0.0 % Baso % (Auto) 0.1 % Neut # (Auto) 10.71 H (1.4-6.5) K/uL Lymph # (Auto) 0.31 L (1.2-3.4) K/uL Talbot # (Auto) 0.54 (0.24-0.82) K/uL Eos # (Auto) 0.00 (0-0.50) K/uL Baso # (Auto) 0.01 (0-0.2) K/uL Immature Gran # (Auto) 0.11 H (0.00-0.02) K/uL ABG pH (7.35-7.45) ABG pCO2 (35-46) mmHg ABG pO2 (80-95) mmHg ABG HCO3 (19-24) mmol/L ABG O2 Saturation (90-95) % ABG Base Excess (-9-1.8) mEq/L Frank Test (Pos) Oxygen Given Sodium (136-145) mmol/L Potassium (3.5-5.1) mmol/L Chloride (98-107) mmol/L Carbon Dioxide (21-32) mmol/L Anion Gap (3-11) BUN (6-23) mg/dl Creatinine (0.6-1.4) mg/dl Est Cr Clr Drug Dosing Est GFR ( Amer) ml/min Est GFR (Non-Af Amer) ml/min BUN/Creatinine Ratio (10-20) Glucose (70-99(Fasting)) mg/dl Osmolality (280-300) mOsm/kg Calcium (8.5-10.1) mg/dl Total Bilirubin (0.2-1.0) mg/dl AST (13-39) U/L ALT (7-52) U/L Alkaline Phosphatase (34-104) U/L Troponin I High Sens (0-20) pg/ml Total Protein (6.0-8.3) gm/dl Albumin (3.4-5.0) gm/dl Globulin (2.5-4.0) gm/dl Albumin/Globulin Ratio (0.9-2) Lipase (11-82) U/L Urine Color Urine Appearance (Clear) Urine pH (4.5-7.5) Ur Specific Orange (1.000-1.030) Urine Protein (Negative) Urine Glucose (UA) (Negative) Urine Ketones (Negative) Urine Blood (Negative) Urine Nitrite (Negative) Urine Bilirubin (Negative) Urine Urobilinogen (Negative) Ur Leukocyte Esterase (Negative) Urine WBC (Auto) (0-5) /hpf Urine RBC (Auto) (0-4) /hpf U Hyaline Cast (Auto) (0-5) /lpf U Epithel Cells (Auto) (0-5) /lpf Urine Bacteria (Auto) (Negative) Granular Casts (0) /lpf Urine Mucus (None Prsent) Urine Osmolality (500-800) mOsm/kg Ur Random Sodium mmol/L Salicylates < 3.0 L (3.0-30) mg/dl Urine Opiates Screen (Neg) Ur Methadone, Qual (Neg) Acetaminophen < 3 L (10-30) ug/ml Urine Barbiturates (Neg) Ur Phencyclidine (PCP) (Neg) U Amphetamin/Meth Scrn (Neg) MDMA (Ecstasy) Screen (Neg) U Benzodiazepines Scrn (Neg) Ur Cocaine Metabolite (Neg) U Marijuana (THC) Screen (Neg) Ethyl Alcohol mg/dL < 10.0 (<10.0) mg/dl SARS-CoV-2, RNA, NAAT (NEGATIVE) 11/20/21 11/20/21 11/20/21 Range/Units 11:28 11:28 11:44 WBC (4.8-10.8) K/ul RBC (4.63-6.08) M/uL Hgb (14.0-18.0) g/dl Hct (40.1-51.0) % MCV (80.0-100.0) fL MCH (25.0-34.0) pg MCHC (32.0-36.0) g/dL RDW Std Deviation (36.4-46.3) fL RDW Coeff of Madelyn (11.5-14.5) % Plt Count (130-400) K/uL MPV (9.4-12.4) fL Immature Gran % (Auto) % Neut % (Auto) % Lymph % (Auto) % Talbot % (Auto) % Eos % (Auto) % Baso % (Auto) % Neut # (Auto) (1.4-6.5) K/uL Lymph # (Auto) (1.2-3.4) K/uL Talbot # (Auto) (0.24-0.82) K/uL Eos # (Auto) (0-0.50) K/uL Baso # (Auto) (0-0.2) K/uL Immature Gran # (Auto) (0.00-0.02) K/uL ABG pH (7.35-7.45) ABG pCO2 (35-46) mmHg ABG pO2 (80-95) mmHg ABG HCO3 (19-24) mmol/L ABG O2 Saturation (90-95) % ABG Base Excess (-9-1.8) mEq/L Frank Test (Pos) Oxygen Given Sodium 125 L (136-145) mmol/L Potassium 6.1 H* (3.5-5.1) mmol/L Chloride 94 L (98-107) mmol/L Carbon Dioxide 20 L (21-32) mmol/L Anion Gap 11 (3-11) BUN 48 H (6-23) mg/dl Creatinine 3.97 H (0.6-1.4) mg/dl Est Cr Clr Drug Dosing Not Reportable Est GFR ( Amer) 17.2 ml/min Est GFR (Non-Af Amer) 14.8 ml/min BUN/Creatinine Ratio 12.1 (10-20) Glucose 158 H (70-99(Fasting)) mg/dl Osmolality 297 (280-300) mOsm/kg Calcium 9.1 (8.5-10.1) mg/dl Total Bilirubin 0.5 (0.2-1.0) mg/dl AST 26 (13-39) U/L ALT 17 (7-52) U/L Alkaline Phosphatase 119 H (34-104) U/L Troponin I High Sens 10.2 (0-20) pg/ml Total Protein 8.1 (6.0-8.3) gm/dl Albumin 3.9 (3.4-5.0) gm/dl Globulin 4.2 H (2.5-4.0) gm/dl Albumin/Globulin Ratio 0.9 (0.9-2) Lipase 38 (11-82) U/L Urine Color Urine Appearance (Clear) Urine pH (4.5-7.5) Ur Specific Orange (1.000-1.030) Urine Protein (Negative) Urine Glucose (UA) (Negative) Urine Ketones (Negative) Urine Blood (Negative) Urine Nitrite (Negative) Urine Bilirubin (Negative) Urine Urobilinogen (Negative) Ur Leukocyte Esterase (Negative) Urine WBC (Auto) (0-5) /hpf Urine RBC (Auto) (0-4) /hpf U Hyaline Cast (Auto) (0-5) /lpf U Epithel Cells (Auto) (0-5) /lpf Urine Bacteria (Auto) (Negative) Granular Casts (0) /lpf Urine Mucus (None Prsent) Urine Osmolality (500-800) mOsm/kg Ur Random Sodium mmol/L Salicylates (3.0-30) mg/dl Urine Opiates Screen (Neg) Ur Methadone, Qual (Neg) Acetaminophen (10-30) ug/ml Urine Barbiturates (Neg) Ur Phencyclidine (PCP) (Neg) U Amphetamin/Meth Scrn (Neg) MDMA (Ecstasy) Screen (Neg) U Benzodiazepines Scrn (Neg) Ur Cocaine Metabolite (Neg) U Marijuana (THC) Screen (Neg) Ethyl Alcohol mg/dL (<10.0) mg/dl SARS-CoV-2, RNA, NAAT NEGATIVE (NEGATIVE) 11/20/21 11/20/21 11/20/21 Range/Units 13:09 14:38 14:38 WBC (4.8-10.8) K/ul RBC (4.63-6.08) M/uL Hgb (14.0-18.0) g/dl Hct (40.1-51.0) % MCV (80.0-100.0) fL MCH (25.0-34.0) pg MCHC (32.0-36.0) g/dL RDW Std Deviation (36.4-46.3) fL RDW Coeff of Madelyn (11.5-14.5) % Plt Count (130-400) K/uL MPV (9.4-12.4) fL Immature Gran % (Auto) % Neut % (Auto) % Lymph % (Auto) % Talbot % (Auto) % Eos % (Auto) % Baso % (Auto) % Neut # (Auto) (1.4-6.5) K/uL Lymph # (Auto) (1.2-3.4) K/uL Talbot # (Auto) (0.24-0.82) K/uL Eos # (Auto) (0-0.50) K/uL Baso # (Auto) (0-0.2) K/uL Immature Gran # (Auto) (0.00-0.02) K/uL ABG pH 7.20 L (7.35-7.45) ABG pCO2 45 (35-46) mmHg ABG pO2 92 (80-95) mmHg ABG HCO3 18 L (19-24) mmol/L ABG O2 Saturation 98.1 H (90-95) % ABG Base Excess -10.2 L (-9-1.8) mEq/L Frank Test Pos (Pos) Oxygen Given 15 Sodium (136-145) mmol/L Potassium (3.5-5.1) mmol/L Chloride (98-107) mmol/L Carbon Dioxide (21-32) mmol/L Anion Gap (3-11) BUN (6-23) mg/dl Creatinine (0.6-1.4) mg/dl Est Cr Clr Drug Dosing Est GFR ( Amer) ml/min Est GFR (Non-Af Amer) ml/min BUN/Creatinine Ratio (10-20) Glucose (70-99(Fasting)) mg/dl Osmolality (280-300) mOsm/kg Calcium (8.5-10.1) mg/dl Total Bilirubin (0.2-1.0) mg/dl AST (13-39) U/L ALT (7-52) U/L Alkaline Phosphatase (34-104) U/L Troponin I High Sens (0-20) pg/ml Total Protein (6.0-8.3) gm/dl Albumin (3.4-5.0) gm/dl Globulin (2.5-4.0) gm/dl Albumin/Globulin Ratio (0.9-2) Lipase (11-82) U/L Urine Color Urine Appearance (Clear) Urine pH (4.5-7.5) Ur Specific Orange (1.000-1.030) Urine Protein (Negative) Urine Glucose (UA) (Negative) Urine Ketones (Negative) Urine Blood (Negative) Urine Nitrite (Negative) Urine Bilirubin (Negative) Urine Urobilinogen (Negative) Ur Leukocyte Esterase (Negative) Urine WBC (Auto) (0-5) /hpf Urine RBC (Auto) (0-4) /hpf U Hyaline Cast (Auto) (0-5) /lpf U Epithel Cells (Auto) (0-5) /lpf Urine Bacteria (Auto) (Negative) Granular Casts (0) /lpf Urine Mucus (None Prsent) Urine Osmolality 346 L (500-800) mOsm/kg Ur Random Sodium 26 mmol/L Salicylates (3.0-30) mg/dl Urine Opiates Screen (Neg) Ur Methadone, Qual (Neg) Acetaminophen (10-30) ug/ml Urine Barbiturates (Neg) Ur Phencyclidine (PCP) (Neg) U Amphetamin/Meth Scrn (Neg) MDMA (Ecstasy) Screen (Neg) U Benzodiazepines Scrn (Neg) Ur Cocaine Metabolite (Neg) U Marijuana (THC) Screen (Neg) Ethyl Alcohol mg/dL (<10.0) mg/dl SARS-CoV-2, RNA, NAAT (NEGATIVE) 11/20/21 11/20/21 Range/Units 14:38 14:38 WBC (4.8-10.8) K/ul RBC (4.63-6.08) M/uL Hgb (14.0-18.0) g/dl Hct (40.1-51.0) % MCV (80.0-100.0) fL MCH (25.0-34.0) pg MCHC (32.0-36.0) g/dL RDW Std Deviation (36.4-46.3) fL RDW Coeff of Madelyn (11.5-14.5) % Plt Count (130-400) K/uL MPV (9.4-12.4) fL Immature Gran % (Auto) % Neut % (Auto) % Lymph % (Auto) % Talbot % (Auto) % Eos % (Auto) % Baso % (Auto) % Neut # (Auto) (1.4-6.5) K/uL Lymph # (Auto) (1.2-3.4) K/uL Talbot # (Auto) (0.24-0.82) K/uL Eos # (Auto) (0-0.50) K/uL Baso # (Auto) (0-0.2) K/uL Immature Gran # (Auto) (0.00-0.02) K/uL ABG pH (7.35-7.45) ABG pCO2 (35-46) mmHg ABG pO2 (80-95) mmHg ABG HCO3 (19-24) mmol/L ABG O2 Saturation (90-95) % ABG Base Excess (-9-1.8) mEq/L Frank Test (Pos) Oxygen Given Sodium (136-145) mmol/L Potassium (3.5-5.1) mmol/L Chloride (98-107) mmol/L Carbon Dioxide (21-32) mmol/L Anion Gap (3-11) BUN (6-23) mg/dl Creatinine (0.6-1.4) mg/dl Est Cr Clr Drug Dosing Est GFR ( Amer) ml/min Est GFR (Non-Af Amer) ml/min BUN/Creatinine Ratio (10-20) Glucose (70-99(Fasting)) mg/dl Osmolality (280-300) mOsm/kg Calcium (8.5-10.1) mg/dl Total Bilirubin (0.2-1.0) mg/dl AST (13-39) U/L ALT (7-52) U/L Alkaline Phosphatase (34-104) U/L Troponin I High Sens (0-20) pg/ml Total Protein (6.0-8.3) gm/dl Albumin (3.4-5.0) gm/dl Globulin (2.5-4.0) gm/dl Albumin/Globulin Ratio (0.9-2) Lipase (11-82) U/L Urine Color Dark Yellow Urine Appearance Clear (Clear) Urine pH 5.0 (4.5-7.5) Ur Specific Orange 1.017 (1.000-1.030) Urine Protein Trace H (Negative) Urine Glucose (UA) Negative (Negative) Urine Ketones Trace H (Negative) Urine Blood Negative (Negative) Urine Nitrite Negative (Negative) Urine Bilirubin Negative (Negative) Urine Urobilinogen Negative (Negative) Ur Leukocyte Esterase Negative (Negative) Urine WBC (Auto) 1-5 (0-5) /hpf Urine RBC (Auto) 5-10 H (0-4) /hpf U Hyaline Cast (Auto) >30 H (0-5) /lpf U Epithel Cells (Auto) 10-20 H (0-5) /lpf Urine Bacteria (Auto) Negative (Negative) Granular Casts 1-5 H (0) /lpf Urine Mucus Present A (None Prsent) Urine Osmolality (500-800) mOsm/kg Ur Random Sodium mmol/L Salicylates (3.0-30) mg/dl Urine Opiates Screen Pos H (Neg) Ur Methadone, Qual Neg (Neg) Acetaminophen (10-30) ug/ml Urine Barbiturates Neg (Neg) Ur Phencyclidine (PCP) Neg (Neg) U Amphetamin/Meth Scrn Neg (Neg) MDMA (Ecstasy) Screen Neg (Neg) U Benzodiazepines Scrn Neg (Neg) Ur Cocaine Metabolite Neg (Neg) U Marijuana (THC) Screen Neg (Neg) Ethyl Alcohol mg/dL (<10.0) mg/dl SARS-CoV-2, RNA, NAAT (NEGATIVE) Administered Medications Naloxone HCl 5 mg/ Sodium (Chloride) 100 mls @ 5.4 mls/hr IV .[id number] [facility]; Protocol Stop: 12/20/21 13:14 Last Admin: 11/20/21 13:33 Dose: 0.27 mg/hr, 5.4 mls/hr Documented by: [id number] Cosigned by: [id number] Discontinued Medications Sodium Chloride (Nss 1000ml) 1,000 mls @ 999 mls/hr IV .Q1H1M ONE Stop: 11/20/21 13:20 Last Admin: 11/20/21 12:29 Dose: 999 mls/hr Documented by: [id number] Sodium Chloride (Nss 1000ml) 1,000 mls @ 999 mls/hr IV .Q1H1M ONE Stop: 11/20/21 14:00 Last Infusion: 11/20/21 14:51 Dose: 0 mls/hr Documented by: [id number] Admin: 11/20/21 13:04 Dose: 999 mls/hr Documented by: [id number] Naloxone HCl (Naloxone Hcl 0.4 Mg/1 Ml Vial/Carp) Confirm Administered Dose 0.4 mg .ROUTE .STK-MED ONE Stop: 11/20/21 12:57 Last Admin: 11/20/21 13:00 Dose: 0.4 mg Documented by: [id number] Naloxone HCl (Naloxone Hcl 0.4 Mg/1 Ml Vial/Carp) 0.4 mg IV NOW STA Stop: 11/20/21 13:01 Last Admin: 11/20/21 13:04 Dose: Not Given Documented by: [id number] Naloxone HCl (Naloxone Hcl 0.4 Mg/1 Ml Vial/Carp) 0.2 mg IV Q15M ONE Stop: 11/20/21 13:17 Last Admin: 11/20/21 14:51 Dose: Not Given Documented by: [id number] Imaging Data Radiologist's Impression: Head CT 11/20/21 11:16 CT head/brain wo con CLINICAL HISTORY: Frequent falls. Weakness. COMPARISON STUDY: 08/03/2021 CT DOSE: 823.94 mGycm TECHNIQUE: Standard CT of the Brain was performed without IV contrast. A dose lowering technique was utilized adhering to the principles of ALARA. FINDINGS: Extraaxial space: There is no evidence for subdural hematoma. There are no extra-axial fluid collections. Ventricles and cisterns: The ventricles are normal in size and configuration. There is no evidence for midline shift or mass effect. Parenchyma: There is no subarachnoid or intraparenchymal hemorrhage. There is no evidence for an acute infarct or cerebral edema. There is homogeneous attenuation of the brain parenchyma. There are no gross mass lesions. Osseous structures: There is no evidence for an acute fracture. The visualized p aranasal sinuses are clear. The mastoid air cells are clear bilaterally. Soft tissues: There is no evidence for focal soft tissue swelling. IMPRESSION: 1. No acute intracerebral pathology. ACT 112: Negative or not required by law. Electronically signed by: Edward Michaels M.D. 11/20/2021 12:35 PM Chest X-Ray 11/20/21 11:17 XR chest 1V portable CLINICAL HISTORY: Chest Pain. COMPARISON STUDY: 08/03/2021 TECHNIQUE: 1 view of the chest FINDINGS: Single frontal view of the chest demonstrates the heart to appear prominent size due to decreased inspiratory effort. Compared to previous examination, there is evidence for central vascular congestion. No peripheral interstitial or alveolar edema are seen. There is no evidence for pleural effusion. No alveolar opacities are identified. There is no acute osseous pathology. IMPRESSION: 1. Decreased inspiratory effort with evidence for central vascular congestion characteristic of early cardiac decompensation. ACT 112: Negative or not required by law. Electronically signed by: Edward Michaels M.D. 11/20/2021 12:37 PM Discharge Plan Visit Data Chief Complaint: Confusion Stated Complaint: AMS ED Provider: Mike Lee Discharge Problem: Respiratory failure, Narcotic abuse, AARON (acute kidney injury), Acute hyperkalemia, Hypoxia Forms Stand Alone Forms: My [facility] [employer] Prescriptions Prescriptions: No Action metformin 500 mg tablet extended release 24 hr 1,000 mg PO BID RF: 0 insulin glargine [Lantus Solostar U-100 Insulin] 100 unit/mL (3 mL) Insulin Pen 20 unit SUBCUT .DAILY@NOON RF: 0 sertraline 100 mg tablet 150 mg PO HS RF: 0 pantoprazole 40 mg tablet,delayed release (DR/EC) 40 mg PO DAILYBB RF: 0 pregabalin 200 mg capsule 200 mg PO TID RF: 0 oxycodone [OxyContin] 10 mg tablet,oral only,ext.rel.12 hr 10 mg PO BID RF: 0 oxycodone 5 mg tablet 5 mg PO Q5H PRN (Reason: Moderate Pain (Scale Score 5-6)) RF: 0 losartan 100 mg tablet 100 mg PO DAILY@1530 RF: 0 Referrals Referrals: Karlie Bates DO [Primary Care Provider] -
[2021-11-20 11:51] LABS: Hematocrit (blood only) 39.8 % (40.1-51.0); Mean Corpuscular Hemoglobin 26.8 pg (25.0-34.0); Mean Corpuscular Hgb Conc 30.2 g/dL (32.0-36.0); Mean Corpuscular Volume 88.8 fL (80.0-100.0); Mean Platelet Volume 11.6 fL (9.4-12.4); Platelet Count 217 K/uL (130-400); RDW Coefficient of Variation 16.3 % (11.5-14.5); RDW Standard Deviation 52.7 fL (36.4-46.3); Red Blood Count 4.48 M/uL (4.63-6.08); White Blood Count 11.68 K/ul (4.8-10.8)
[2021-11-20 12:08] LABS: Acetaminophen < 3 ug/ml (10-30); Salicylate < 3.0 mg/dl (3.0-30)
[2021-11-20 12:13] LABS: Alanine Aminotransferase 17 U/L (7-52); Albumin Globulin Ratio 0.9 (0.9-2); Albumin Level 3.9 gm/dl (3.4-5.0); Alkaline Phosphatase 119 U/L (34-104); Anion Gap 11 (3-11); Aspartate Aminotransferase 26 U/L (13-39); BUN Creatinine Ratio 12.1 (10-20); Bilirubin,Total 0.5 mg/dl (0.2-1.0); Blood Urea Nitrogen 48 mg/dl (6-23); Calcium 9.1 mg/dl (8.5-10.1); Carbon Dioxide 20 mmol/L (21-32); Chloride 94 mmol/L (98-107); Est GFR (African American) 17.2 ml/min; Est GFR (Non-African American) 14.8 ml/min; Globulin 4.2 gm/dl (2.5-4.0); Glucose 158 mg/dl (70-99(Fasting)); Lipase 38 U/L (11-82); Potassium 6.1 mmol/L (3.5-5.1); Sodium 125 mmol/L (136-145); Total Protein 8.1 gm/dl (6.0-8.3)
[2021-11-20 12:20] LABS: Basophils # (auto) 0.01 K/uL (0-0.2); Basophils % (auto) 0.1 %; Immature Granulocytes # (auto) 0.11 K/uL (0.00-0.02); Immature Granulocytes % (auto) 0.9 %; Lymphocytes # (auto) 0.31 K/uL (1.2-3.4); Lymphocytes % (auto) 2.7 %; Monocytes # (auto) 0.54 K/uL (0.24-0.82); Monocytes % (auto) 4.6 %; Neutrophils # (auto) 10.71 K/uL (1.4-6.5); Neutrophils % (auto) 91.7 %
[2021-11-20] MEDS ORDERED: SODIUM CHLORIDE 0.9% 1000ML 1,000 ML IV ONE ×2 (12:20→13:00)
[2021-11-20 12:22] LABS: Troponin I High Sensitivity 10.2 pg/ml (0-20)
--- NOTE | 2021-11-20 12:36 | CT Scan Report ---
CT head/brain wo con CLINICAL HISTORY: Frequent falls. Weakness. COMPARISON STUDY: 08/03/2021 CT DOSE: 823.94 mGycm TECHNIQUE: Standard CT of the Brain was performed without IV contrast. A dose lowering technique was utilized adhering to the principles of ALARA. FINDINGS: Extraaxial space: There is no evidence for subdural hematoma. There are no extra-axial fluid collecti ons. Ventricles and cisterns: The ventricles are normal in size and configuration. There is no evidence fo r midline shift or mass effect. Parenchyma: There is no subarachnoid or intraparenchymal hemorrhage. There is no evidence for an acut e infarct or cerebral edema. There is homogeneous attenuation of the brain parenchyma. There are no g ross mass lesions. Osseous structures: There is no evidence for an acute fracture. The visualized paranasal sinuses are clear. The mastoid air cells are clear bilaterally. Soft tissues: There is no evidence for focal soft tissue swelling. IMPRESSION: 1. No acute intracerebral pathology. ACT 112: Negative or not required by law. Electronically signed by: Edward Michaels M.D. 11/20/2021 12:35 PM
--- NOTE | 2021-11-20 12:38 | XRay Report ---
XR chest 1V portable CLINICAL HISTORY: Chest Pain. COMPARISON STUDY: 08/03/2021 TECHNIQUE: 1 view of the chest FINDINGS: Single frontal view of the chest demonstrates the heart to appear prominent size due to decreased ins piratory effort. Compared to previous examination, there is evidence for central vascular congestion. No peripheral interstitial or alveolar edema are seen. There is no evidence for pleural effusion. No alveolar opacities are identified. There is no acute osseous pathology. IMPRESSION: 1. Decreased inspiratory effort with evidence for central vascular congestion characteristic of early cardiac decompensation. ACT 112: Negative or not required by law. Electronically signed by: Edward Michaels M.D. 11/20/2021 12:37 PM
[2021-11-20] MEDS ORDERED: NALOXONE HCL 0.4 MG/1 ML VIAL/CARP ONE (12:56)
[2021-11-20] MEDS ORDERED: NALOXONE HCL 0.4 MG/1 ML VIAL/CARP IV STA (13:00)
[2021-11-20] MEDS ORDERED: STAT IV Infusion **Titration per Protocol STA (13:01)
[2021-11-20] MEDS ORDERED: NALOXONE HCL 0.4 MG/1 ML VIAL/CARP IV ONE (13:16)
[2021-11-20 13:17] LABS: Base Excess ABG -10.2 mEq/L (-9-1.8); HCO3 ABG 18 mmol/L (19-24); Oxygen Saturation ABG 98.1 % (90-95); PCO2 ABG 45 mmHg (35-46); PO2 ABG 92 mmHg (80-95)
[2021-11-20 13:27] LABS: Allen Test Pos (Pos)
--- NOTE | 2021-11-20 13:28 | History & Physical Report ---
Date of Service November 20, 2021 Assessment & Plan (1) Acute metabolic encephalopathy: (2) Acute respiratory failure: Plan: Pt is 65 y/o M with PMH DM II, DM HTN, HLD, ENRIQUE previously noncompliant with CPAP, now on BiPAP at bedtime, Left BKA, phantom limb pain on chronic narcotic, Anxiety, depression, Charcot joint, obesity presented to ER for altered mental status today In ER patient noted to be somnolent and having periods of apnea. he was given Narcan 0.4mg IV and became alert and oriented however shortly became somnolent again and Narcan drip started. ABG: pH: 7.2, pCO2: 45, pO2: 92, HCO3: 18 Drug screen pending Probable secondary to not clearing opioids secondary to AARON. No significant hypercapnia on abg Pt will be admitted to ICU for further observation and treatment Continue Narcan drip Lactate pending Acute kidney injury: BUN: 48, Cr: 3.9. Baseline Cr: ~0.7 In ER received IVF CT abd/pelvis to R/O obstruction Possible secondary to urinary retention Avoid nephrotoxic agents when possible Nephrology consult Urinary retention: Catheter placed in ER and 1800ml drained Fall Reported fall when getting out of chair 5 days ago with c/o low back pain Lumbar spine CT pending Alcohol Use Possible Alcohol Withdrawal Drinking 6 beers daily for past several months. thinks last drink was 2 days ago Withdrawal treatment per ICU Hyperkalemia K: 6.1 ICU to manage electrolyte abnormalities Repeat BMP Hyponatremia Na: 125 Urine sodium, urine osmolality, serum osmolality pending Obstructive sleep apnea: History non-compliance with bipap Chronic narcotic use: Hold home narcotics currently secondary to reduced consciousness DM II: A1c: 5.7 on 05/18/21 Hold home metformin Glycemic management per ICU HTN: Hold home lisinopril secondary to AARON Further management per ICU Full Code as per discussion with pt and pt's Follows with Dr Bates for routine care History of Present Illness Chief Complaint: Altered mental status Primary Care Provider: Karlie Bates, Pt is 65 y/o M with PMH DM II, DM HTN, HLD, ENRIQUE previously noncompliant with CPAP, now on BiPAP at bedtime, Left BKA, phantom limb pain on chronic narcotic, Anxiety, depression, Charcot joint, obesity presented to ER for altered mental status. History of previous admissions for acute hypercapnic respiratory failure in setting of excessive opiate use,and was treated with BiPAP and Narcan. Also in 04/2021 admission for sepsis, patient was intubated as he was not using BiPAP was treated for pneumonia and ATN secondary to septic shock requiring dialysis. Admission 06/2021 for incarcerated umbilical hernia s/p repair. Limited history obtained from patient initially and then more awake and alert and conversive. Remaining history obtained from chart review and patients . Patients reports that patient was unable to get his oxycodone secondary to the Holiday weekend. States he was out for approximate 4 days. Reports patient picked up Rx on 11/17/21. She states he took two oxycodone when he picked them up, however she believes he has been taking them as prescribed previously. His has been dispensing his oxycodone ER BID. Gave patient one oxycodone ER last night HS. Reports urine was very dark yesterday. He didn't void very much yesterday. Patient reports he did not void today. Reports patient fell 11/15/21 when getting up out of chair, the chair leg got caught in floor boards of deck. States patient has been complaining of low back pain since fall however has been doing ADL's. reports 5:00am this am she heard a lump and saw patient sitting on floor and he stated he tried to get up out of bed without his prosthetic leg. Got patient up and was able to get him back in bed. At 9:00 am found patient lying in his bed and he was sweating and wasn't very responsive and wasn't waking up with voice and called EMS. She reports patient did not have his medication this morning. She reports his oxycodone has been lowered by PCP. She does not believe that patient has taken extra oxycodone. Patient reports is drinking 6 beers a day. thinks patient last drank 11/18/21. Patient unable to tell me last time he drank. Denies fever/chills, diaphoresis, N/V/D/C, SAINI, dizziness, syncope, vision changes, neck pain, CP, SOB, orthopnea, palpitations, cough, sore throat, choking, otalgia, rhinorrhea, abdominal pain, paresthesias, extremity weakness, extremity edema, rashes, dysuria, hematuria. In ER patient noted to be sedated and having periods of apnea. he was given Narcan 0.4mg IV and became alert and oriented however shortly became somnolent again and Narcan drip started. ER nurse attempted bladder scan however read zero, likely misread secondary to body habitus. Moy cath placed with 1800ml output. Allergies Allergy/AdvReac Type Severity Reaction Status Date / Time ketorolac Allergy Mild BURNING Verified 11/20/21 14:36 SENSATION ciprofloxacin [From Cipro] AdvReac Intermediate upset Verified 11/20/21 14:36 stomach tramadol AdvReac Intermediate GI UPSET Verified 11/20/21 14:36 Home Medications Medication Instructions Recorded Confirmed Type insulin glargine 100 unit/mL (3 20 unit SUBCUT .DAILY@NOON 12/12/19 11/20/21 History mL) subcutaneous pen (Lantus Solostar U-100 Insulin) metformin 500 mg tablet,extended 1,000 mg PO BID 12/12/19 11/20/21 History release 24 hr pantoprazole 40 mg tablet,delayed 40 mg PO DAILYBB 11/23/20 11/20/21 History release sertraline 100 mg tablet 150 mg PO HS 11/23/20 11/20/21 History losartan 100 mg tablet 100 mg PO DAILY@1530 07/02/21 11/20/21 History oxycodone 10 mg tablet,crush 10 mg PO BID 11/20/21 11/20/21 History resistant,extended release 12 hr (OxyContin) oxycodone 5 mg tablet 5 mg PO Q5H PRN 11/20/21 11/20/21 History pregabalin 200 mg capsule 200 mg PO TID 11/20/21 11/20/21 History Past Med/Surg History Medical History Abdominal pain Acquired claw toe of left foot Acute respiratory failure AARON (acute kidney injury) Altered mental status Anxiety Callus Charcot's joint of right foot Charcot's joint, left ankle and foot Chronic pain Chronic ulcer of left midfoot Depression Diabetes mellitus with diabetic polyneuropathy Diabetic ulcer of left foot DMII (diabetes mellitus, type 2) Fever GERD (gastroesophageal reflux disease) HTN (hypertension) Liver cirrhosis Metabolic encephalopathy Morbid obesity due to excess calories Multiple rib fractures involving four or more ribs Narcotic overdose OA (osteoarthritis) of knee ENRIQUE (obstructive sleep apnea) SBO (small bowel obstruction) Shortness of breath Smoker Surgical History H/O knee surgery History of bilateral knee replacement S/P AKA (above knee amputation) unilateral Left S/P trigger finger release Family History Father Lung cancer Mother Hypertension Dementia Social History Smoking Status: Current every day smoker Tobacco Type: Cigarettes Cigarettes Per Day: .5 pack; Second Hand Exposure: No; Do You Dip or Chew Tobacco: No; Tobacco Cessation Education Requested by Patient: No Hx Alcohol Use: Yes Alcohol type: beer Hx Substance Use: No Preferred Language: Armenian Communication Ability: Effective Visual Impairment: No Limitations Hunter Required: No Beliefs That Will Affect Care: None marital status: Current Living Situation: Spouse Current Living Situation Comment: At home Feels Safe at Home: Declines to Answer Assistive Devices: Prosthesis and Wheelchair Assistive Devices Comment: LLE Prosthesis Review of Systems Review of Systems: All systems reviewed & are unremarkable except as noted in HPI & below Physical Exam Physical Exam: General: Patient in no apparent distress on oxymask, obese Head: normocephalic, atraumatic Eyes: PERRL, EOM's intact, conjunctiva non-injected, anicteric ENT: normal inspection external ears, nose, mucous membranes moist Neck: supple, trachea midline Lungs: clear, on oxymask with sat 99%, no wheezing/rhonchi/rales CV: RRR, no murmur, RLE: 1+ pretibial edema Abd: protuberant, normal BS, soft, non-tender to palpation Ext: no cyanosis, no calf tenderness; LLE: +BKA Neuro: Initial evaluation Patient alert and oriented to person, place, season and year, no focal deficits noted (after receiving narcan). Patient then becomes more somnolent, awakens to voice and now on narcan drip Skin: warm, dry Results & Data Results & Data ([facility]) Vital Signs (Past 12 Hours) Vital Signs Temp Pulse Resp BP Pulse Ox 11/20/21 13:10 110 H 11/20/21 13:00 114 H 24 159/82 H 100 11/20/21 12:50 109 H 29 H 89 L 11/20/21 12:40 109 H 17 92 11/20/21 12:30 112 H 21 108/60 99 11/20/21 12:28 109 H 24 124/79 100 11/20/21 12:26 100 11/20/21 12:10 112 H 18 98 11/20/21 12:00 111 H 17 145/75 H 98 11/20/21 11:50 110 H 18 96 11/20/21 11:40 111 H 91 11/20/21 11:30 113 H 120/63 94 11/20/21 11:26 109 H 102/63 98 11/20/21 11:20 111 H 14 11/20/21 11:17 98 11/20/21 11:10 111 H 29 H 100 11/20/21 11:04 112 H 17 91 11/20/21 10:52 36.7 C 112 H 12 120/63 77 L Laboratory Results Short CBC 11/20/21 Range/Units 11:28 WBC 11.68 H (4.8-10.8) K/ul Hgb 12.0 L (14.0-18.0) g/dl Hct 39.8 L (40.1-51.0) % Plt Count 217 (130-400) K/uL BMP 11/20/21 11:28 Sodium 125 L Potassium 6.1 H* Chloride 94 L Carbon Dioxide 20 L BUN 48 H Creatinine 3.97 H Glucose 158 H Calcium 9.1 Liver Function 11/20/21 Range/Units 11:28 Total Bilirubin 0.5 (0.2-1.0) mg/dl AST 26 (13-39) U/L ALT 17 (7-52) U/L Alkaline Phosphatase 119 H (34-104) U/L Albumin 3.9 (3.4-5.0) gm/dl Urine 11/20/21 Range/Units 14:38 Urine Color Dark Yellow Urine Appearance Clear (Clear) Urine pH 5.0 (4.5-7.5) Ur Specific [place] 1.017 (1.000-1.030) Urine Protein Trace H (Negative) Urine Glucose (UA) Negative (Negative) Diagnostic Findings Head CT 11/20/21 11:16 CT head/brain wo con CLINICAL HISTORY: Frequent falls. Weakness. COMPARISON STUDY: 08/03/2021 CT DOSE: 823.94 mGycm TECHNIQUE: Standard CT of the Brain was performed without IV contrast. A dose lowering technique was utilized adhering to the principles of ALARA. FINDINGS: Extraaxial space: There is no evidence for subdural hematoma. There are no extra-axial fluid collections. Ventricles and cisterns: The ventricles are normal in size and configuration. There is no evidence for midline shift or mass effect. Parenchyma: There is no subarachnoid or intraparenchymal hemorrhage. There is no evidence for an acute infarct or cerebral edema. There is homogeneous attenuation of the brain parenchyma. There are no gross mass lesions. Osseous structures: There is no evidence for an acute fracture. The visualized paranasal sinuses are clear. The mastoid air cells are clear bilaterally. Soft tissues: There is no evidence for focal soft tissue swelling. IMPRESSION: 1. No acute intracerebral pathology. ACT 112: Negative or not required by law. Electronically signed by: Edward Michaels M.D. 11/20/2021 12:35 PM Chest X-Ray 11/20/21 11:17 XR chest 1V portable CLINICAL HISTORY: Chest Pain. COMPARISON STUDY: 08/03/2021 TECHNIQUE: 1 view of the chest FINDINGS: Single frontal view of the chest demonstrates the heart to appear prominent size due to decreased inspiratory effort. Compared to previous examination, there is evidence for central vascular congestion. No peripheral interstitial or alveolar edema are seen. There is no evidence for pleural effusion. No alveolar opacities are identified. There is no acute osseous pathology. IMPRESSION: 1. Decreased inspiratory effort with evidence for central vascular congestion characteristic of early cardiac decompensation. ACT 112: Negative or not required by law. Electronically signed by: Edward Michaels M.D. 11/20/2021 12:37 PM Supervising Physician Co-Signing Physician Notes 66-year-old gentleman with PMH of multiple hospital admissions secondary to obtundation secondary to acute hypercarbic respiratory failure 2/2 narcotic abuse, ENRIQUE, respiratory failure, COPD, HLD, Charcot feet due to diabetes, LLE BKA status post prosthesis LLE, history of hyperkalemia, pneumonia, liver cirrhosis, portal hypertension, morbid obesity, HTN, reflux esophagitis, AARON, spinal stenosis, cellulitis of RLE presented to our ED 11/20 by EMS for confusion. Patient remains arousable but falls back to sleep quckly; on BPAP, hence most of the history taken from chart review/ER doctor/patient's . It appears that patient had been lately drinking (last drink 11/18) and per his he did not take any extra pills of oxycodone [his has started taking control of his extended release oxycodone recently]. Of note, per his patient fell 11/15/2021 when getting out of chair, mechanical nature. Also patient fell today morning when trying to get out of the bed without his LLE prosthesis. His mentation started worsening around 9 AM today morning. Per his , his urine had been very dark yesterday. In the ER patient noted to be obtunded with periods of apnea, Narcan given with very short alertness period and again going back to somnolence. Also in the ER, Moy catheter was placed with urine output of 1800 mL. Labs significant for hyperkalemia, hyponatremia, significant AARON. ABG acidotic w/ nl pCO2, likely metabolic/aaron. BMP every 4 hours, IV fluid with NSS, maintain Moy catheter, nephrology consult. Management per ICU protocol. Acute metabolic encephalopathy likely secondary to possible alcohol withdrawal versus accentuated effect of narcotics on the background of AARON, requiring Narcan infusion, is being managed in the ICU. Hold neuropsychotropic meds for now. NH3 level. Patient on BiPAP. Patient drinks 6 packs of beer daily and ongoing for several months, last drink was 11/18 per his , KARLIE S protocol. Vitamins. CT head w/ no acute findings, CXR w/ concern of vascular congestion. Upon Exam GENERAL: obtunded, on BPAP, opens eyes on tapping shoulder, snoring most of the time. HEENT: No pallor, no icterus. Pupils equal, round and reactive to light. Oral mucosa dry. NECK: No JVD, no neck masses. HEART: S1 and S2 heard. Tachycardia. No murmur, no gallop. RESPIRATORY SYSTEM: Normal AP diameter. No accessory muscle use. No wheezing, no crackles. ABDOMEN: Soft, bowel sounds present, no grimacing, no distention. CENTRAL NERVOUS SYSTEM: No facial droop. Speech is clear. Obeys simple commands. Moves extremities. EXTREMITIES: RLE 1-2+ edema, no erythema seen. LLE prosthesis noted. UC w/ dark yellow urine collection noted. I have seen and examined the patient and have discussed the case with the provider above. I agree with the assessment and plan as stated. (1) Acute respiratory failure Respiratory failure complication: hypoxia and hypercapnia Qualified Code(s): J96.01 - Acute respiratory failure with hypoxia; J96.02 - Acute respiratory failure with hypercapnia
[2021-11-20] MEDS: NALOXONE HCL 5 MG in 0.9 % SODIUM CHLORIDE 87.5 ML IV SCH (13:33)
--- NOTE | 2021-11-20 14:33 | Critical Care Consultation ---
Date of Consultation November 20, 2021 Assessment & Plan (1) Altered mental status: Impression: Patient is a 66-year-old male with multiple comorbidities and on chronic opioid use presenting to the emergency department for altered mental status and acute hypoxemic respiratory failure both likely secondary to opioid overdose. Patient received 1 dose of Narcan in the emergency department which did provide momentary improvement in his level of consciousness but patient is currently with reduced consciousness about to begin Narcan drip. Plan: Neuro-decreased level of consciousness. Unable to 100% confirm that this is due to opioid overdose, however, this is the most likely cause given he has had a history of this in the past and he did respond to Narcan. We will check for ammonia levels to evaluate for hepatic encephalopathy given his history of hepatic cirrhosis. Patient does seem to have a history of consuming 6 beers per day for the past few weeks. Because of this and the inability to determine his true alcohol consumption due to his decreased level of consciousness he will be placed on AWSS protocol for alcohol withdrawal. Seizure precautions will be put in place. Additionally will give patient thiamine, folate, and glucose to prevent Wernicke encephalopathy Cardiovascular-no current issues, will hold losartan in the setting of acute kidney injury. If patient requires blood pressure control for pressures greater than 180/110, consider clonidine as the modality of choice for blood pressure control. Respiratory-acute on chronic hypoxemic respiratory failure. Again likely secondary to opioid overdose in the setting of excessive oxycodone use. Was on oxygen mask in the emergency department with good oxygen saturation, but to improve ventilation and possibly pull off some carbon dioxide, patient placed on BiPAP especially while patient is asleep as he has had several apneic episodes that have been witnessed by myself. We will continue to have patient placed on Narcan drip which should improve respiration rate. Renal-hyponatremia at 125, serum osmolality, urine osmolality, and random urine sodium ordered to evaluate for cause. Given 2 boluses of normal saline in the emergency department, continue on maintenance IV fluid. Hyperkalemia at 6.1. We will give insulin for his diabetes and recheck with a BMP in the afternoon. Calcium gluconate for cardiac protection. No EKG abnormalities noted at this time. Patient has acidosis at 7.2 with a borderline normal CO2 at 45. Suspect that acidosis is likely respiratory acidosis that may be acute on chronic given his history of obstructive sleep apnea. Will calculate osmolar gap to evaluate for other causes of acidosis such as methanol, ethylene glycol, etc. GI-no GI issues at this time Infectious disease-no ID issues at this time Endocrine-ICU glycemic protocol, double benefit of utilizing insulin for elevated potassium as well. Ssmo-ayj-Qzaylta for DVT prophylaxis Diet: Carb consistent Disposition: ICU CODE STATUS: Full code (2) Acute hypoxemic respiratory failure: (3) AARON (acute kidney injury): (4) Narcotic abuse: (5) ENRIQUE (obstructive sleep apnea): (6) Hyponatremia: (7) Diabetes mellitus with diabetic polyneuropathy: (8) Hyperkalemia: Supervising Physician Co-Signing Physician Notes Patient seen and examined. EMR reviewed. Discussed with family practice resident and agree with assessment plan as noted above. 66-year-old male with cirrhosis obesity probable sleep disordered breathing chronic pain issues admitted with overdose of narcotics and encephalopathy. He required boluses of Narcan and is being initiated on a Narcan infusion. Will admit to the ICU until the patient is weaned off of the Narcan infusion. Continue supportive care. He is acidotic more so than could be explained by his elevated CO2 level. We will check lactate as well as osmolar gap for potential other volatile alcohols. If osmolar gap is present, may consider fomepizole, nephrology consultation. Hold pain medications for now. Once sensorium clears, the patient can be reassessed for reinitiating his pain medications. We will follow his acute kidney injury and electrolyte abnormalities. We will place the patient on high-dose thiamine and folate with glucose and institute alcohol withdrawal protocol. Titrate oxygen to maintain saturations at or above 90%. Avoid hypoxemia. Once the patient successfully weaned off the Narcan drip, he can transfer out of the intensive care unit and critical care services will sign off. Thanks for the opportunity participating in the care of this patient. Feel free to contact us if we can be of additional assistance. History of Present Illness Reason for Consultation: Opioid overdose History of Present Illness Patient is a 66-year-old male with a past medical history of diabetes mellitus, cirrhosis of liver, portal hypertension, COPD, hypertension, obstructive sleep apnea, hyperlipidemia, and Charcot's status post left lower extremity below-knee amputation who presented to the emergency room for the chief complaint of red uced consciousness. History is mostly gathered from ED provider and patient's as the patient is quite somnolent. Reportedly the patient is on chronic oxycodone therapy with both short acting and extended release modalities for history of spinal stenosis. Per the patient's , she reports that over 16 November weekend, they were unable to get refills for him and was out of oxycodone for 4 days. Per the , she states that she dispenses his oxycodone to the patient and does not believe that he has been taking any extra, however, in the emergency department the patient reported to the ED attending that he felt he had taken too much of both his short acting and long-acting oxycodone this morning. Additionally per the 's history, this morning the patient had attempted to get out of bed without his prosthetic leg and had fallen onto the floor. She had found him on the floor shortly after this event had happened and he was sweating and not responsive to voice, so she had called an ambulance to have him evaluated in the emergency room. In the emergency department the patient was somnolent and having periods of apnea. He was given 1 dose of 0.4 mg Narcan to which she responded well by correcting his bradypnea and becoming more awake and responsive, however, shortly after this dose he had become and somnolent once again. Unfortunately this is all the information is available at this time until patient becomes more responsive and awake. Allergies Allergy/AdvReac Type Severity Reaction Status Date / Time ketorolac Allergy Mild BURNING Verified 11/20/21 14:36 SENSATION ciprofloxacin [From Cipro] AdvReac Intermediate upset Verified 11/20/21 14:36 stomach tramadol AdvReac Intermediate GI UPSET Verified 11/20/21 14:36 Home Medications Medication Instructions Recorded Confirmed Type insulin glargine 100 unit/mL (3 20 unit SUBCUT DAILY 12/12/19 08/03/21 History mL) subcutaneous pen (Lantus Solostar U-100 Insulin) metformin 500 mg tablet,extended 1,000 mg PO BID 12/12/19 08/03/21 History release 24 hr pantoprazole 40 mg tablet,delayed 40 mg PO DAILYBB 11/23/20 08/03/21 History release sertraline 100 mg tablet 150 mg PO HS 11/23/20 08/03/21 History losartan 100 mg tablet 100 mg PO DAILY@1530 07/02/21 08/03/21 History oxycodone 10 mg tablet,crush 10 mg PO BID 11/20/21 11/20/21 History resistant,extended release 12 hr (OxyContin) oxycodone 5 mg tablet 5 mg PO Q5H PRN 11/20/21 11/20/21 History pregabalin 200 mg capsule 200 mg PO TID 11/20/21 11/20/21 History Patient History Medical History Abdominal pain Acquired claw toe of left foot Acute respiratory failure AARON (acute kidney injury) Altered mental status Anxiety Callus Charcot's joint of right foot Charcot's joint, left ankle and foot Chronic pain Chronic ulcer of left midfoot Depression Diabetes mellitus with diabetic polyneuropathy Diabetic ulcer of left foot DMII (diabetes mellitus, type 2) Fever GERD (gastroesophageal reflux disease) HTN (hypertension) Liver cirrhosis Metabolic encephalopathy Morbid obesity due to excess calories Multiple rib fractures involving four or more ribs Narcotic overdose OA (osteoarthritis) of knee ENRIQUE (obstructive sleep apnea) SBO (small bowel obstruction) Shortness of breath Smoker Surgical History H/O knee surgery History of bilateral knee replacement S/P AKA (above knee amputation) unilateral Left S/P trigger finger release Family History Father Lung cancer Mother Hypertension Dementia Social History Smoking Status: Never smoker Tobacco Type: Cigarettes Cigarettes Per Day: 2-3; Second Hand Exposure: No; Hx Alcohol Use: Yes Alcohol type: beer Hx Substance Use: No Preferred Language: Brazilian Communication Ability: Effective Visual Impairment: No Limitations Sand Sifter Required: No Beliefs That Will Affect Care: None marital status: Current Living Situation: Spouse Current Living Situation Comment: home Feels Safe at Home: Yes Assistive Devices: Prosthesis and Walker Review of Systems Review of Systems: All systems reviewed & are unremarkable except as noted in HPI & below Physical Exam Constitutional: well developed, well nourished, + morbidly obese, + altered mental status and + lethargic Eyes: + anicteric sclerae Neck: normal visual inspection Respiratory: Auscultation: lungs clear to auscultation bilaterally Bradypnea noted with episodes of apnea. Cardiovascular: RRR, no murmur, no edema Gastrointestinal (Abdomen): Inspection/Auscultation: abdomen normal to inspection and + hypoactive bowel sounds; abdomen not distended Percussion/Palpation: abdomen soft Musculoskeletal: Head/Neck/Chest: normocephalic and head atraumatic Extremities: + amputation noted Skin: no rashes, warm and dry + turgor decreased Neurologic: Somnolent Lymphatic: no cervical lymphadenopathy Results & Data Results & Data ([facility]) Vital Signs (Past 12 Hours) Vital Signs Temp Pulse Resp BP Pulse Ox 11/20/21 14:12 104 H 17 100 11/20/21 13:50 104 H 7 L 100 11/20/21 13:40 102 H 3 L 100 11/20/21 13:30 104 H 6 L 125/79 84 L 11/20/21 13:20 106 H 14 100 11/20/21 13:10 110 H 11/20/21 13:00 114 H 24 159/82 H 100 11/20/21 12:50 109 H 29 H 89 L 11/20/21 12:40 109 H 17 92 11/20/21 12:30 112 H 21 108/60 99 11/20/21 12:28 109 H 24 124/79 100 11/20/21 12:26 100 11/20/21 12:10 112 H 18 98 11/20/21 12:00 111 H 17 145/75 H 98 11/20/21 11:50 110 H 18 96 11/20/21 11:40 111 H 91 11/20/21 11:30 113 H 120/63 94 11/20/21 11:26 109 H 102/63 98 11/20/21 11:20 111 H 14 11/20/21 11:17 98 11/20/21 11:10 111 H 29 H 100 11/20/21 11:04 112 H 17 91 11/20/21 10:52 36.7 C 112 H 12 120/63 77 L
[2021-11-20 14:59] LABS: Appearance Urine Clear (Clear); Bacteria Urine Automated Negative (Negative); Bilirubin Urine Negative (Negative); Blood Urine Negative (Negative); Color Urine Dark Yellow; Glucose Urine UA Negative (Negative); Ketones Urine Trace (Negative); Leukocyte Esterase Urine Negative (Negative); Nitrite Urine Negative (Negative); Protein Urine Trace (Negative); Specific Gravity Urine 1.017 (1.000-1.030); Urobilinogen Urine Negative (Negative)
[2021-11-20 15:11] LABS: Cast Urine Automated >30 /lpf (0-5); Mucus Urine Present (None Prsent)
[2021-11-20 15:42] LABS: Amphetamines+Metham, Urine Neg (Neg); Barbiturates, Urine Neg (Neg); Benzodiazepine, Urine Neg (Neg); Cocaine, Urine Neg (Neg); MDMA (Ecstacy), Urine Neg (Neg); Methadone, Urine Neg (Neg); Opiate, Urine Pos (Neg); Phencyclidine, Urine Neg (Neg)
--- NOTE | 2021-11-20 16:09 | CT Scan Report ---
LUMBAR SPINE CT CT DOSE: HISTORY: fall 5 days ago. low back discomfort TECHNIQUE: Multiaxial CT images of the lumbar spine were performed and reformatted in the sagittal an d coronal plane without the use of contrast. A dose lowering technique was utilized adhering to the principles of ALARA. COMPARISON: Abdomen and pelvis CT 08/03/2021. FINDINGS: There is nondisplaced right L1 transverse process fracture. No additional fractures identif ied within the lumbar spine. The visualized sacrum is intact. Vertebral body heights are maintained. Moderate facet degenerative changes at L3-L4, L4-5, and L5-S1. Disc spaces are preserved. No high-gra de central canal stenosis by CT technique. Paravertebral soft tissues are unremarkable. IMPRESSION: Nondisplaced right L1 transverse process fracture. ACT 112: Negative or not required by law. Electronically signed by: Rojelio Meredith M.D. 11/20/2021 4:07 PM
--- NOTE | 2021-11-20 16:27 | CT Scan Report ---
ABDOMEN AND PELVIS CT WITHOUT CONTRAST CT DOSE: 1378.48 mGycm HISTORY: Right back/flank pain. Acute kidney injury. TECHNIQUE: Multiaxial CT images of the abdomen and pelvis were performed without contrast. A dose lo wering technique was utilized adhering to the principles of ALARA. COMPARISON STUDY: Abdomen and pelvis CT 08/03/2021. FINDINGS: There are old, healed bilateral anterior rib fractures. Acute to subacute left lateral nint h rib fracture on image 121. An acute nondisplaced right L1 transverse process fracture. Mild motion artifact. Bibasilar linear densities consistent with subsegmental atelectasis. There is also streak a rtifact from the patient's overlapping arms resulting in suboptimal evaluation of the abdomen. No pne umoperitoneum. No pneumatosis. Small fat-containing right inguinal hernia. Calcified plaque again not ed within the coronary arteries. Mild periorbital subcutaneous fat stranding which is slightly improv ed. This could represent a mild residual cellulitis. Nodular contour to the liver consistent with cir rhosis. Splenomegaly persists. This is likely secondary to underlying portal hypertension. The unenha nced adrenal glands, gallbladder, and pancreas are unremarkable. No retroperitoneal lymphadenopathy. Mild calcified plaque within the normal caliber abdominal aorta. No renal or ureteral stones. No hydr onephrosis. The bladder is decompressed by Moy catheter. No pelvic free fluid. Suboptimal evaluatio n for bowel pathology due to the lack of intravenous and oral contrast. However, there is no definite bowel wall thickening or obstruction. IMPRESSION: 1. Suboptimal evaluation of the abdomen and pelvis due to the lack of contrast, motion artifact, and streak artifact from the patient's overlapping arms. 2. No renal or ureteral stones. No hydronephrosis. 3. No definite bowel wall thickening or obstruction. 4. Cirrhotic liver with splenomegaly, unchanged. 5. Nondisplaced acute right L1 transverse process fracture. 6. Acute to subacute nondisplaced left lateral ninth rib fracture. There are few additional old, heal ed bilateral anterior rib fractures. ACT 112: Negative or not required by law. Electronically signed by: Rojelio Meredith M.D. 11/20/2021 4:24 PM
[2021-11-20] MEDS ORDERED: LORazepam 1 MG in SYRINGE 0.5 ML IV PRN (16:31)
[2021-11-20] MEDS ORDERED: STAT IV STA (16:31)
[2021-11-20] MEDS ORDERED: ATIVAN IV ALCOHOL WITHDRAWL IV PRN (16:31)
[2021-11-20] MEDS ORDERED: ICU PROTOCOL FOR HYPERGLYCEMIA PRN (16:31)
[2021-11-20] MEDS ORDERED: LORazepam 2 MG in SYRINGE 1 ML IV PRN (16:31)
[2021-11-20] MEDS ORDERED: LORazepam 3 MG in SYRINGE 1.5 ML IV PRN (16:31)
[2021-11-20] MEDS ORDERED: CALCIUM GLUCONATE 10% 1,000 MG in DEXTROSE 5% 50 ML IV ONE (16:45)
[2021-11-20] MEDS ORDERED: THIAMINE HCL 100 MG/ML 2 ML VIAL IV ONE (16:45)
[2021-11-20] MEDS ORDERED: FOLIC ACID 1 MG in SYRINGE 9.8 ML IV ONE (16:45)
[2021-11-20] MEDS ORDERED: THIAMINE HCL 100 MG in SYRINGE 9 ML IV ONE (17:00)
[2021-11-20 17:32] LABS: Anion Gap 6 (3-11); Blood Urea Nitrogen 49 mg/dl (6-23); Calcium 8.4 mg/dl (8.5-10.1); Carbon Dioxide 23 mmol/L (21-32); Chloride 99 mmol/L (98-107); Est GFR (African American) 23.5 ml/min; Est GFR (Non-African American) 20.3 ml/min; Glucose 116 mg/dl (70-99(Fasting)); Potassium 5.8 mmol/L (3.5-5.1); Sodium 128 mmol/L (136-145)
[2021-11-20] MEDS: HEPARIN SOD 5,000 UNIT/0.5 ML VIAL SQ SCH (21:18)
[2021-11-20] MEDS ORDERED: OXYMETAZOLINE 0.05% 30 ML BTL NAE PRN (23:06)
--- NOTE | 2021-11-20 23:17 | Electrocardiogram Report ---
Test Reason : Blood Pressure : / mmHG Vent. Rate : 111 BPM Atrial Rate : 111 BPM P-R Int : 150 ms QRS Dur : 098 ms QT Int : 352 ms P-R-T Axes : 051 041 053 degrees QTc Int : 478 ms Sinus tachycardia Otherwise normal ECG When compared with ECG of 03-AUG-2021 15:53, Nonspecific T wave abnormality no longer evident in Inferior leads Nonspecific T wave abnormality no longer evident in Lateral leads Confirmed by Edlon Evans ([id number]) on 11/20/2021 11:16:46 PM Referred By: REFERRED SELF Confirmed By:Eldon Evans
[2021-11-21 04:02] LABS: Hematocrit (blood only) 34.3 % (40.1-51.0); Hemoglobin 10.5 g/dl (14.0-18.0); Mean Corpuscular Hemoglobin 26.6 pg (25.0-34.0); Mean Corpuscular Hgb Conc 30.6 g/dL (32.0-36.0); Mean Corpuscular Volume 87.1 fL (80.0-100.0); Mean Platelet Volume 12.3 fL (9.4-12.4); Platelet Count 150 K/uL (130-400); RDW Coefficient of Variation 16.1 % (11.5-14.5); RDW Standard Deviation 50.7 fL (36.4-46.3); Red Blood Count 3.94 M/uL (4.63-6.08); White Blood Count 7.55 K/ul (4.8-10.8)
[2021-11-21 04:31] LABS: Potassium 4.9 mmol/L (3.5-5.1)
[2021-11-21 04:32] LABS: BUN Creatinine Ratio 28.1 (10-20); Calcium 8.9 mg/dl (8.5-10.1); Creatinine Clr Calc Pharmacy 66.4 ml/min; Est GFR (African American) 54.5 ml/min; Magnesium 2.4 mg/dl (1.7-2.4); Phosphorus 4.2 mg/dl (2.5-4.9)
[2021-11-21 05:57] LABS: Estimated Average Glucose 128 mg/dl; Hemoglobin A1C 6.1 % (4.5-5.6)
[2021-11-21] MEDS: HEPARIN SOD 5,000 UNIT/0.5 ML VIAL SQ SCH ×2 (06:13→16:26)
--- NOTE | 2021-11-21 08:34 | Critical Care Progress Note ---
Date of Service November 21, 2021 Assessment & Plan (1) Altered mental status: (2) Hyponatremia: (3) AARON (acute kidney injury): (4) Narcotic abuse: (5) Acute metabolic encephalopathy: Plan: Impression: Patient is a 66-year-old male with multiple comorbidities and on chronic opioid use presenting to the emergency department for altered mental status and acute hypoxemic respiratory failure both likely secondary to opioid overdose. Patient received 1 dose of Narcan in the emergency department which did provide momentary improvement in his level of consciousness but patient is currently with reduced consciousness about to begin Narcan drip. 24-hour events: Patient's been weaned off Narcan. He is hemodynamically stable. No acute issues overnight. Plan: Neuro-decreased level of consciousness likely secondary to narcotics. Improved this morning and off Narcan drip. Will defer to primary service restarting his outpatient pain management protocol. Continue thiamine folate and observe for alcohol withdrawal. Cardiovascular-no current issues Respiratory-no current issues. Suspect underlying sleep disordered breathing however the patient has been noncompliant with positive airway pressure in the past. Renal-hyponatremia improving, possibly secondary to alcohol use. Continue to follow clinically. Acute kidney injury improved. Continue to trend. Hyperkalemia better. GI-no GI issues at this time. Tolerating diet Infectious disease-no ID issues at this time Endocrine-ICU glycemic protocol [id number] for DVT prophylaxis Diet: Carb consistent Disposition: Okay to transfer to floor CODE STATUS: Full code Discussed with bedside critical care nurse and with patient. The patient can transfer out of the ICU to the floor as he has been off Narcan. Critical care services will sign off. Feel free to contact us if we can be of additional assistance. Admission and Anticipated Discharge Date Admission Date: November 20, 2021 Subjective Patient seen and examined. EMR reviewed. Discussed with ICU nurse at bedside. The patient is awake alert conversant and eating breakfast. He denies any significant pain issues. No difficulties breathing. No chest pain or palpitations. Review of Systems Review of Systems: All systems reviewed & are unremarkable except as noted in Subjective Physical Exam Constitutional: well developed, well nourished and + morbidly obese; no altered mental status and not lethargic Eyes: + anicteric sclerae Neck: normal visual inspection Respiratory: Auscultation: lungs clear to auscultation bilaterally Cardiovascular: RRR, no murmur, no edema Gastrointestinal (Abdomen): Inspection/Auscultation: abdomen normal to inspection and + hypoactive bowel sounds; abdomen not distended Percussion/Palpation: abdomen soft Musculoskeletal: Head/Neck/Chest: normocephalic and head atraumatic Extremities: + amputation noted Skin: no rashes, warm and dry + turgor decreased Neurologic: Nonfocal Lymphatic: no cervical lymphadenopathy Results & Data Results & Data ([facility]) Vital Signs (Past 12 Hours) Vital Signs Temp Pulse Resp BP Pulse Ox 11/21/21 07:47 75 17 95 11/21/21 07:35 37.0 C 11/21/21 07:00 113 H 18 143/74 H 96 11/21/21 06:00 112 H 18 151/74 H 94 11/21/21 05:00 106 H 16 123/64 97 11/21/21 04:00 36.8 C 110 H 22 123/67 94 11/21/21 03:10 111 H 14 98 11/21/21 03:00 110 H 16 135/69 98 11/21/21 02:00 110 H 19 110/75 99 11/21/21 01:00 103 H 22 123/78 95 11/21/21 00:00 107 H 17 132/74 95 11/20/21 23:00 36.7 C 104 H 14 102/70 94 11/20/21 22:32 114 H 16 99 11/20/21 22:00 109 H 18 126/71 98 11/20/21 21:00 109 H 25 H 99/75 L 95 11/20/21 20:30 105 H 16 97 Critical Care Results & Data Vital Signs (Past 12 Hours) Vital Signs Temp Pulse Resp BP Pulse Ox 11/21/21 07:47 75 17 95 11/21/21 07:35 37.0 C 11/21/21 07:00 113 H 18 143/74 H 96 11/21/21 06:00 112 H 18 151/74 H 94 11/21/21 05:00 106 H 16 123/64 97 11/21/21 04:00 36.8 C 110 H 22 123/67 94 11/21/21 03:10 111 H 14 98 11/21/21 03:00 110 H 16 135/69 98 11/21/21 02:00 110 H 19 110/75 99 11/21/21 01:00 103 H 22 123/78 95 11/21/21 00:00 107 H 17 132/74 95 11/20/21 23:00 36.7 C 104 H 14 102/70 94 11/20/21 22:32 114 H 16 99 11/20/21 22:00 109 H 18 126/71 98 11/20/21 21:00 109 H 25 H 99/75 L 95 Lab & Micro Results (Past 24 Hours) RBC 3.94 M/uL (4.63-6.08) L 11/21/21 WBC 7.55 K/ul (4.8-10.8) 11/21/21 Hgb 10.5 g/dl (14.0-18.0) L 11/21/21 Hct 34.3 % (40.1-51.0) L 11/21/21 MCV 87.1 fL (80.0-100.0) 11/21/21 MCH 26.6 pg (25.0-34.0) 11/21/21 MCHC 30.6 g/dL (32.0-36.0) L 11/21/21 RDW Standard Deviation 50.7 fL (36.4-46.3) H 11/21/21 RDW Coefficient of Variation 16.1 % (11.5-14.5) H 11/21/21 Plt Count 150 K/uL (130-400) 11/21/21 MPV 12.3 fL (9.4-12.4) 11/21/21 Neutrophils (%) (Auto) 91.7 % 11/20/21 Lymphocytes (%) (Auto) 2.7 % 11/20/21 Monocytes # (Auto) 0.54 K/uL (0.24-0.82) 11/20/21 Eosinophils # (Auto) 0.00 K/uL (0-0.50) 11/20/21 Immature Granulocyte % (Auto) 0.9 % 11/20/21 Neutrophils # (Auto) 10.71 K/uL (1.4-6.5) H 11/20/21 Lymphocytes # (Auto) 0.31 K/uL (1.2-3.4) L 11/20/21 Monocytes # (Auto) 0.54 K/uL (0.24-0.82) 11/20/21 Eosinophils # (Auto) 0.00 K/uL (0-0.50) 11/20/21 Basophils # (Auto) 0.01 K/uL (0-0.2) 11/20/21 Immature Granulocyte # (Auto) 0.11 K/uL (0.00-0.02) H 11/20/21 Na 132 mmol/L (136-145) L 11/21/21 K 4.9 mmol/L (3.5-5.1) 11/21/21 Cl 102 mmol/L (98-107) 11/21/21 CO2 23 mmol/L (21-32) 11/21/21 Anion Gap 7 (3-11) 11/21/21 BUN 43 mg/dl (6-23) H 11/21/21 Creatinine 1.53 mg/dl (0.6-1.4) H 11/21/21 Estimated GFR ( Amer) 54.5 ml/min 11/21/21 Estimated GFR (Non-Af Amer) 47.0 ml/min 11/21/21 BUN/Creatinine Ratio 28.1 (10-20) H 11/21/21 Glu 83 mg/dl (70-99(Fasting)) 11/21/21 Ca 8.9 mg/dl (8.5-10.1) 11/21/21 Phosphorus Level 4.2 mg/dl (2.5-4.9) 11/21/21 Total Bilirubin 0.5 mg/dl (0.2-1.0) 11/20/21 AST 26 U/L (13-39) 11/20/21 ALT 17 U/L (7-52) 11/20/21 Alkaline Phosphatase 119 U/L (34-104) H 11/20/21 TP 8.1 gm/dl (6.0-8.3) 11/20/21 Albumin 3.9 gm/dl (3.4-5.0) 11/20/21 Globulin 4.2 gm/dl (2.5-4.0) H 11/20/21 Albumin/Globulin Ratio 0.9 (0.9-2) 11/20/21 Mg 2.4 mg/dl (1.7-2.4) 11/21/21 03:25 11/21/21 Calcium Level 8.9 mg/dl (8.5-10.1) 11/21/21 03:25 11/21/21 Arterial Blood pH 7.20 (7.35-7.45) L 11/20/21 13:09 11/20/21 Arterial Blood Partial Pressure CO2 45 mmHg (35-46) 11/20/21 13:09 11/20/21 Arterial Blood Partial Pressure O2 92 mmHg (80-95) 11/20/21 13:09 11/20/21 Arterial Blood HCO3 18 mmol/L (19-24) L 11/20/21 13:09 11/20/21 Arterial Blood Base Excess -10.2 mEq/L (-9-1.8) L 11/20/21 13:09 11/20/21 Arterial Blood Oxygen Saturation 98.1 % (90-95) H 11/20/21 13:09 11/20/21 Blood Gas Oxygen Given 15 11/20/21 13:09 11/20/21 Frank Test Pos (Pos) 11/20/21 13:09 11/20/21 Diagnostic Findings (Past 24 Hours) Head CT 11/20/21 11:16 CT head/brain wo con CLINICAL HISTORY: Frequent falls. Weakness. COMPARISON STUDY: 08/03/2021 CT DOSE: 823.94 mGycm TECHNIQUE: Standard CT of the Brain was performed without IV contrast. A dose lowering technique was utilized adhering to the principles of ALARA. FINDINGS: Extraaxial space: There is no evidence for subdural hematoma. There are no extra-axial fluid collections. Ventricles and cisterns: The ventricles are normal in size and configuration. There is no evidence for midline shift or mass effect. Parenchyma: There is no subarachnoid or intraparenchymal hemorrhage. There is no evidence for an acute infarct or cerebral edema. There is homogeneous attenuation of the brain parenchyma. There are no gross mass lesions. Osseous structures: There is no evidence for an acute fracture. The visualized paranasal sinuses are clear. The mastoid air cells are clear bilaterally. Soft tissues: There is no evidence for focal soft tissue swelling. IMPRESSION: 1. No acute intracerebral pathology. ACT 112: Negative or not required by law. Electronically signed by: Edward Michaels M.D. 11/20/2021 12:35 PM Chest X-Ray 11/20/21 11:17 XR chest 1V portable CLINICAL HISTORY: Chest Pain. COMPARISON STUDY: 08/03/2021 TECHNIQUE: 1 view of the chest FINDINGS: Single frontal view of the chest demonstrates the heart to appear prominent size due to decreased inspiratory effort. Compared to previous examination, there is evidence for central vascular congestion. No peripheral interstitial or alveolar edema are seen. There is no evidence for pleural effusion. No alveolar opacities are identified. There is no acute osseous pathology. IMPRESSION: 1. Decreased inspiratory effort with evidence for central vascular congestion characteristic of early cardiac decompensation. ACT 112: Negative or not required by law. Electronically signed by: Edward Michaels M.D. 11/20/2021 12:37 PM Abdomen/Pelvis CT 11/20/21 14:[address] WITHOUT CONTRAST CT DOSE: 1378.48 mGycm HISTORY: Right back/flank pain. Acute kidney injury. TECHNIQUE: Multiaxial CT images of the abdomen and pelvis were performed without contrast. A dose lowering technique was utilized adhering to the principles of ALARA. COMPARISON STUDY: Abdomen and pelvis CT 08/03/2021. FINDINGS: There are old, healed bilateral anterior rib fractures. Acute to subacute left lateral ninth rib fracture on image 121. An acute nondisplaced right L1 transverse process fracture. Mild motion artifact. Bibasilar linear densities consistent with subsegmental atelectasis. There is also streak artifact from the patient's overlapping arms resulting in suboptimal evaluation of the abdomen. No pneumoperitoneum. No pneumatosis. Small fat-containing right inguinal hernia. Calcified plaque again noted within the coronary arteries. Mild periorbital subcutaneous fat stranding which is slightly improved. This could represent a mild residual cellulitis. Nodular contour to the liver consistent with cirrhosis. Splenomegaly persists. This is likely secondary to underlying portal hypertension. The unenhanced adrenal glands, gallbladder, and pancreas are unremarkable. No retroperitoneal lymphadenopathy. Mild calcified plaque within the normal caliber abdominal aorta. No renal or ureteral stones. No hydronephrosis. The bladder is decompressed by Moy catheter. No pelvic free fluid. Suboptimal evaluation for bowel pathology due to the lack of intravenous and oral contrast. However, there is no definite bowel wall thickening or obstruction. IMPRESSION: 1. Suboptimal evaluation of the abdomen and pelvis due to the lack of contrast, motion artifact, and streak artifact from the patient's overlapping arms. 2. No renal or ureteral stones. No hydronephrosis. 3. No definite bowel wall thickening or obstruction. 4. Cirrhotic liver with splenomegaly, unchanged. 5. Nondisplaced acute right L1 transverse process fracture. 6. Acute to subacute nondisplaced left lateral ninth rib fracture. There are few additional old, healed bilateral anterior rib fractures. ACT 112: Negative or not required by law. Electronically signed by: Rojelio Meredith M.D. 11/20/2021 4:[address] 11/20/21 14:[address] DOSE: HISTORY: fall 5 days ago. low back discomfort TECHNIQUE: Multiaxial CT images of the lumbar spine were performed and reformatted in the sagittal and coronal plane without the use of contrast. A dose lowering technique was utilized adhering to the principles of ALARA. COMPARISON: Abdomen and pelvis CT 08/03/2021. FINDINGS: There is nondisplaced right L1 transverse process fracture. No additional fractures identified within the lumbar spine. The visualized sacrum is intact. Vertebral body heights are maintained. Moderate facet degenerative changes at L3-L4, L4-5, and L5-S1. Disc spaces are preserved. No high-grade central canal stenosis by CT technique. Paravertebral soft tissues are unremarkable. IMPRESSION: Nondisplaced right L1 transverse process fracture. ACT 112: Negative or not required by law. Electronically signed by: Rojelio Meredith M.D. 11/20/2021 4:07 PM I & O Totals 24 Hours 11/20/21 11/21/21 11/22/21 06:59 06:59 06:59 Intake Total 2119.084 / 2119.084 Output Total 2735 / 2735 Balance -615.916 / -615.916 Cumulative 11/20/21 10:52 thru 11/21/21 06:00 Intake Total 2119.084 Output Total 2735 Balance -615.916 RT Ventilator Mngmt (Last Documented) Ventilator Ordered Settings Respiratory Rate 17 11/21/21 07:47 Fraction of Inspired Oxygen 30 11/21/21 07:47 Ventilator - PT Measurements Respiratory Rate 17 End-Tidal CO2 16 Coding Level of Care Code 24469 Subseq Hosp Care Lvl 3 Diagnoses Altered mental status R41.82 Hyponatremia E87.1 AARON (acute kidney injury) N17.9 Narcotic abuse F11.10 Acute metabolic encephalopathy G93.41
[2021-11-21] MEDS: NALOXONE HCL 5 MG in 0.9 % SODIUM CHLORIDE 87.5 ML IV SCH (08:56)
[2021-11-21] MEDS ORDERED: oxyCODONE HCL IR 5 MG TAB (IMMEDIATE RELEASE) PO STA (09:36)
[2021-11-21] MEDS ORDERED: oxyCODONE HCL IR 5 MG TAB (IMMEDIATE RELEASE) ONE (09:40)
--- NOTE | 2021-11-21 10:47 | Discharge Summary ---
Date of Service November 21, 2021 Admission HPI Per Admitting Provider Pt is 65 y/o M with PMH DM II, DM HTN, HLD, ENRIQUE previously noncompliant with CPAP, now on BiPAP at bedtime, Left BKA, phantom limb pain on chronic narcotic, Anxiety, depression, Charcot joint, obesity presented to ER for altered mental status. History of previous admissions for acute hypercapnic respiratory failure in setting of excessive opiate use,and was treated with BiPAP and Narcan. Also in 04/2021 admission for sepsis, patient was intubated as he was not using BiPAP was treated for pneumonia and ATN secondary to septic shock requiring dialysis. Admission 06/2021 for incarcerated umbilical hernia s/p repair. Limited history obtained from patient initially and then more awake and alert and conversive. Remaining history obtained from chart review and patients . Patients reports that patient was unable to get his oxycodone secondary to the Holiday weekend. States he was out for approximate 4 days. Reports patient picked up Rx on 11/17/21. She states he took two oxycodone when he picked them up, however she believes he has been taking them as prescribed previously. His has been dispensing his oxycodone ER BID. Gave patient one oxycodone ER last night HS. Reports urine was very dark yesterday. He didn't void very much yesterday. Patient reports he did not void today. Reports patient fell 11/15/21 when getting up out of chair, the chair leg got caught in floor boards of deck. States patient has been complaining of low back pain since fall however has been doing ADL's. reports 5:00am this am she heard a lump and saw patient sitting on floor and he stated he tried to get up out of bed without his prosthetic leg. Got patient up and was able to get him back in bed. At 9:00 am found patient lying in his bed and he was sweating and wasn't very responsive and wasn't waking up with voice and called EMS. She reports patient did not have his medication this morning. She reports his oxycodone has been lowered by PCP. She does not believe that patient has taken extra oxycodone. Patient reports is drinking 6 beers a day. thinks patient last drank 11/18/21. Patient unable to tell me last time he drank. Denies fever/chills, diaphoresis, N/V/D/C, SAINI, dizziness, syncope, vision changes, neck pain, CP, SOB, orthopnea, palpitations, cough, sore throat, choking, otalgia, rhinorrhea, abdominal pain, paresthesias, extremity weakness, extremity edema, rashes, dysuria, hematuria. In ER patient noted to be sedated and having periods of apnea. he was given Narcan 0.4mg IV and became alert and oriented however shortly became somnolent again and Narcan drip started. ER nurse attempted bladder scan however read zero, likely misread secondary to body habitus. Moy cath placed with 1800ml output. Principal Diagnosis Lumbar transverse process fracture Discharge Data Allergies Allergy/AdvReac Type Severity Reaction Status Date / Time ketorolac Allergy Mild BURNING Verified 11/20/21 14:36 SENSATION ciprofloxacin [From Cipro] AdvReac Intermediate upset Verified 11/20/21 14:36 stomach tramadol AdvReac Intermediate GI UPSET Verified 11/20/21 14:36 Consultations 11/20/21 12:49 ED Decision to Admit Stat 11/20/21 15:22 Consult Nephrology Routine 11/20/21 16:31 Consult Compressor Engineer Routine Consult Nephrology Routine 11/21/21 08:00 Consult Orthopedic Surgery Routine Ordered Studies 11/20/21 11:16 CT head/brain wo con Stat 11/20/21 14:07 CT abd pelvis wo con Stat CT lumbar spine wo con Stat Hospital Course (1) Lumbar transverse process fracture: Total Time Total Time Spent Total Time Spent (In Minutes): 10 minutes Discharge Plan Discharge Items Patient Disposition: Home - Self-Care Reason For Visit: AMS Discharge Diagnosis: Acute toxic metabolic encephalopathy, AARON, Bladder outlet obstruction, L1 fracture, chronic opiate use Activity: Resume your previous activity Non-emergency contact: Primary Care Provider Call non-emergency contact if: you have any medication questions, your symptoms worsen, your pain is not controlled and you have a fever Follow-up/Referrals: [facility] [Other] (The Urology office will call you with an appointment for follow up. Please call them if you do not hear from them. [address] [place] [address] ) Karlie Bates, DO [Primary Care Provider] - 11/27/21 11:00 am (Date & Time 11/27/2021 11:00 AM Provider Prashant Boykin DO Department [facility] ) Diet: Carb Consistent or DM2 and Heart Healthy Addtl Attending Provider Instructions: Recommend to cut down on your oxycodone. Follow up with family doctor for furt her weaning down as well as repeat blood work BMP in a week. Follow up with urology for further work up of your urinary retention You also have lumbar fracture from the fall but orthopedics did not recommend any intervention or brace. If worsening back pain or neurologic symptoms, follow up with Dr Vieyra. Recommend BIPAP use with sleep and at night Pending Studies at Discharge: No Stand-Alone Forms: [facility] [employer], Smoking Cessation Medications and DC Order Prescriptions: Continued metformin 500 mg tablet extended release 24 hr 1,000 mg PO BID insulin glargine [Lantus Solostar U-100 Insulin] 100 unit/mL (3 mL) Insulin Pen 20 unit SUBCUT .DAILY@NOON sertraline 100 mg tablet 150 mg PO HS pantoprazole 40 mg tablet,delayed release (DR/EC) 40 mg PO DAILYBB pregabalin 200 mg capsule 200 mg PO TID oxycodone [OxyContin] 10 mg tablet,oral only,ext.rel.12 hr 10 mg PO BID losartan 100 mg tablet 100 mg PO DAILY@1530 Changed oxycodone 5 mg tablet 5 mg PO Q8 PRN (Reason: Moderate Pain (Scale Score 5-6)) Qty: 0 0RF Discharge Orders: Discharge Order (Routine); Ordered 11/23/21 Ordered By: Francisco Lantigua/Other Patient Handouts: Managing Type 2 Diabetes Admission Data Admit Date/Time: 11/20/21 14:17 Attending Provider: Francisco Judd Admit Provider: Jodie Medley Primary Care Provider: Karlie Bates Other Providers: Dennis Koroma ; Jodie Medley ; Olman Patel ; Olman Vieyra ; Nilay Son Other Interventions: Discharge Summary Assessment (RN) Last Done: 11/23/21 12:04
--- NOTE | 2021-11-21 10:49 | Orthopedic Consultation ---
Date of Consultation November 21, 2021 Assessment & Plan (1) Lumbar transverse process fracture: Assessment transverse process fracture of L1. Plan at this time would not recommend any intervention. His body habitus is not amenable to a brace. This should most likely heal on its own. He can undergo transfers and activity as tolerated. History of Present Illness Reason for Consultation: Transverse process fracture of the lumbar spine Requesting Physician: This is a very pleasant yet remarkably on healthy 66-year-old male. He presents status post fall from his wheelchair and noted to have a transverse process fracture on his CAT scan. He notes of back pain with change of position but no radicular complaints or changes to lower extremity function. Attending Physician: Francisco Judd MD Allergies Allergy/AdvReac Type Severity Reaction Status Date / Time ketorolac Allergy Mild BURNING Verified 11/20/21 14:36 SENSATION ciprofloxacin [From Cipro] AdvReac Intermediate upset Verified 11/20/21 14:36 stomach tramadol AdvReac Intermediate GI UPSET Verified 11/20/21 14:36 Home Medications Medication Instructions Recorded Confirmed Type insulin glargine 100 unit/mL (3 20 unit SUBCUT .DAILY@NOON 12/12/19 11/20/21 History mL) subcutaneous pen (Lantus Solostar U-100 Insulin) metformin 500 mg tablet,extended 1,000 mg PO BID 12/12/19 11/20/21 History release 24 hr pantoprazole 40 mg tablet,delayed 40 mg PO DAILYBB 11/23/20 11/20/21 History release sertraline 100 mg tablet 150 mg PO HS 11/23/20 11/20/21 History losartan 100 mg tablet 100 mg PO DAILY@1530 07/02/21 11/20/21 History oxycodone 10 mg tablet,crush 10 mg PO BID 11/20/21 11/20/21 History resistant,extended release 12 hr (OxyContin) oxycodone 5 mg tablet 5 mg PO Q5H PRN 11/20/21 11/20/21 History pregabalin 200 mg capsule 200 mg PO TID 11/20/21 11/20/21 History Patient History Medical History Abdominal pain Acquired claw toe of left foot Acute respiratory failure AARON (acute kidney injury) Altered mental status Anxiety Callus Charcot's joint of right foot Charcot's joint, left ankle and foot Chronic pain Chronic ulcer of left midfoot Depression Diabetes mellitus with diabetic polyneuropathy Diabetic ulcer of left foot DMII (diabetes mellitus, type 2) Fever GERD (gastroesophageal reflux disease) HTN (hypertension) Liver cirrhosis Metabolic encephalopathy Morbid obesity due to excess calories Multiple rib fractures involving four or more ribs Narcotic overdose OA (osteoarthritis) of knee ENRIQUE (obstructive sleep apnea) SBO (small bowel obstruction) Shortness of breath Smoker Surgical History H/O knee surgery History of bilateral knee replacement S/P AKA (above knee amputation) unilateral Left S/P trigger finger release Family History Father Lung cancer Mother Hypertension Dementia Social History Smoking Status: Current every day smoker Tobacco Type: Cigarettes Cigarettes Per Day: .5 pack; Second Hand Exposure: No; Do You Dip or Chew Tobacco: No; Tobacco Cessation Education Requested by Patient: No Hx Alcohol Use: Yes Alcohol type: beer Hx Substance Use: No Preferred Language: Malay Communication Ability: Effective Visual Impairment: No Limitations Dials Inspector Required: No Beliefs That Will Affect Care: None marital status: Current Living Situation: Spouse Current Living Situation Comment: At home Feels Safe at Home: Declines to Answer Assistive Devices: Prosthesis and Wheelchair Assistive Devices Comment: LLE Prosthesis Physical Exam Physical Exam: On exam he is in bed and is alert and oriented and cooperative. He is neurologically intact to the bilateral extremities. He is comfortable in his position. Results & Data ([facility]) Vital Signs (Past 12 Hours) Vital Signs Temp Pulse Resp BP Pulse Ox 11/21/21 08:00 112 H 11/21/21 07:47 75 17 95 11/21/21 07:35 37.0 C 11/21/21 07:00 113 H 18 143/74 H 96 11/21/21 06:00 112 H 18 151/74 H 94 11/21/21 05:00 106 H 16 123/64 97 11/21/21 04:00 36.8 C 110 H 22 123/67 94 11/21/21 03:10 111 H 14 98 11/21/21 03:00 110 H 16 135/69 98 11/21/21 02:00 110 H 19 110/75 99 11/21/21 01:00 103 H 22 123/78 95 11/21/21 00:00 107 H 17 132/74 95 11/20/21 23:00 36.7 C 104 H 14 102/70 94
[2021-11-21] MEDS: oxyCODONE HCL 10 MG TABCR (OxyCONTIN) PO SCH ×2 (12:51→19:49)
[2021-11-21 13:22] LABS: Calcium 9.1 mg/dl (8.5-10.1); Creatinine Clr Calc Pharmacy 112.8 ml/min; Est GFR (African American) 103.5 ml/min; Est GFR (Non-African American) 89.3 ml/min; Potassium 4.8 mmol/L (3.5-5.1)
[2021-11-21] MEDS: PREGABALIN 100 MG CAP PO SCH ×2 (14:12→19:48)
[2021-11-21] MEDS: oxyCODONE HCL IR 5 MG TAB (IMMEDIATE RELEASE) PO PRN (16:26)
--- NOTE | 2021-11-21 16:50 | Nephrology Consultation ---
Date of Consultation November 21, 2021 Assessment & Plan (1) AARON (acute kidney injury): 2/ Bladder outflow obstruction -He denied any prostatic symptoms in the past, josé antonio 2/ heavy senior care Narco tic use -This has now resolved , Foleys- CT Abdomen rules out obstruction, or hydronephrosis -Recommned Urology review -Can be f/u by primary as his function are normal now Nephrology will sign off. (2) Hyponatremia: - Gopalley hypvolumid hyponatremia- improved with normal saline. - Opioid products can cause SIADH, but the former seems to be the most probabal explanationa his Na has improved with fluids. (3) Altered mental status: - 2/ opiod overdose-- resolved --He had Osmolar gap at presentation,this resolved without Tx, Normal gap on labs today, (4) Lumbar transverse process fracture: - As per primary/ orthopedics. History of Present Illness Reason for Consultation: Acute kidney injury , Hyponatremia Attending Physician: Francisco Judd MD History of Present Illness 66-year-old gentleman with PMH of, ENRIQUE, respiratory failure, COPD, HLD, DM2, LLE BKA status post prosthesis LLE, liver cirrhosis, portal hypertension, morbid obesity, HTN, spinal stenosis (on keno terminal operator opiod)cellulitis presented to the ED with confusion.Previous multiple hospital admissions secondary to o btundation secondary to acute hypercarbic respiratory failure 2/2 narcotic abuse. He was obtunded on presentation and most of the history taken from patient's .He had been 6-7 cans of Beer lately but denied taking any extra pills of oxycodone, he had a mechanical fall afew days ago, In the ER patient noted to be obtunded with periods of apnea, Narcan given with very short alertness period and again going back to somnolence. Also in the ER, Moy catheter was placed with urine output of 1800 mL. Labs were significant for hyperkalemia, hyponatremia, and AARON. He was fluid resuscitated,Hperkalemia was medically managed,At the time of my examination in the morning,Aaron had resolved,hyponatremia improved and mentally he was alert and oriented times three. He denied having any " kidney issues" in the past , and has never seen a Chef Saucier, Allergies Allergy/AdvReac Type Severity Reaction Status Date / Time ketorolac Allergy Mild BURNING Verified 11/20/21 14:36 SENSATION ciprofloxacin [From Cipro] AdvReac Intermediate upset Verified 11/20/21 14:36 stomach tramadol AdvReac Intermediate GI UPSET Verified 11/20/21 14:36 Home Medications Medication Instructions Recorded Confirmed Type insulin glargine 100 unit/mL (3 20 unit SUBCUT .DAILY@NOON 12/12/19 11/20/21 History mL) subcutaneous pen (Lantus Solostar U-100 Insulin) metformin 500 mg tablet,extended 1,000 mg PO BID 12/12/19 11/20/21 History release 24 hr pantoprazole 40 mg tablet,delayed 40 mg PO DAILYBB 11/23/20 11/20/21 History release sertraline 100 mg tablet 150 mg PO HS 11/23/20 11/20/21 History losartan 100 mg tablet 100 mg PO DAILY@1530 07/02/21 11/20/21 History oxycodone 10 mg tablet,crush 10 mg PO BID 11/20/21 11/20/21 History resistant,extended release 12 hr (OxyContin) oxycodone 5 mg tablet 5 mg PO Q5H PRN 11/20/21 11/20/21 History pregabalin 200 mg capsule 200 mg PO TID 11/20/21 11/20/21 History Patient History Medical History Abdominal pain Acquired claw toe of left foot Acute respiratory failure AARON (acute kidney injury) Altered mental status Anxiety Callus Charcot's joint of right foot Charcot's joint, left ankle and foot Chronic pain Chronic ulcer of left midfoot Depression Diabetes mellitus with diabetic polyneuropathy Diabetic ulcer of left foot DMII (diabetes mellitus, type 2) Fever GERD (gastroesophageal reflux disease) HTN (hypertension) Liver cirrhosis Metabolic encephalopathy Morbid obesity due to excess calories Multiple rib fractures involving four or more ribs Narcotic overdose OA (osteoarthritis) of knee ENRIQUE (obstructive sleep apnea) SBO (small bowel obstruction) Shortness of breath Smoker Surgical History H/O knee surgery History of bilateral knee replacement S/P AKA (above knee amputation) unilateral Left S/P trigger finger release Family History Father Lung cancer Mother Hypertension Dementia Social History Smoking Status: Current every day smoker Tobacco Type: Cigarettes Cigarettes Per Day: .5 pack; Second Hand Exposure: No; Do You Dip or Chew Tobacco: No; Tobacco Cessation Education Requested by Patient: No Hx Alcohol Use: Yes Alcohol type: beer Hx Substance Use: No Preferred Language: Swiss Communication Ability: Effective Visual Impairment: No Limitations Pin Worker Required: No Beliefs That Will Affect Care: None marital status: Current Living Situation: Spouse Current Living Situation Comment: At home Feels Safe at Home: Declines to Answer Assistive Devices: Prosthesis and Wheelchair Assistive Devices Comment: LLE Prosthesis Review of Systems Review of Systems: Alert , oriented NO Shortness of breath R, 1+ pedal edema Physical Exam Physical Exam: GENERAL: Obese, Alert , oriented time 3. HEENT: No pallor, no icterus. Pupils equal NECK: No JVD, no neck masses. HEART: S1 and S2 heard. Tachycardia. No murmur, no gallop. RESPIRATORY SYSTEM: No wheezing, no crackles. ABDOMEN: Soft, bowel sounds present, no tenderness CENTRAL NERVOUS SYSTEM: Alert ,orineted EXTREMITIES: RLE 1+ edema, no erythema seen. LLE prosthesis noted. UC w/ dark yellow urine collection noted. Results & Data ([facility]) Vital Signs (Past 12 Hours) Vital Signs Temp Pulse Pulse Pulse Resp BP BP 11/21/21 15:57 36.6 C 93 H 20 144/78 H 11/21/21 15:00 103 H 11/21/21 11:31 112 H 11/21/21 11:00 36.4 C L 114 H 114 H 20 11/21/21 08:00 112 H 11/21/21 07:47 75 17 11/21/21 07:35 37.0 C 11/21/21 07:00 113 H 18 143/74 H 11/21/21 06:00 112 H 18 151/74 H 11/21/21 05:00 106 H 16 123/64 BP Pulse Ox 11/21/21 15:57 96 11/21/21 15:00 11/21/21 11:31 11/21/21 11:00 111/72 92 11/21/21 08:00 11/21/21 07:47 95 11/21/21 07:35 11/21/21 07:00 96 11/21/21 06:00 94 11/21/21 05:00 97 Laboratory Results 11/21/21 03:25 11/21/21 12:23
--- NOTE | 2021-11-21 17:13 | Hospitalist Progress Note ---
Date of Service November 21, 2021 Assessment & Plan (1) Acute metabolic encephalopathy: (2) Acute respiratory failure: Plan: Pt is 65 y/o M with PMH DM II, DM HTN, HLD, ENRIQUE previously noncompliant with CPAP, now on BiPAP at bedtime, Left BKA, phantom limb pain on chronic narcotic, Anxiety, depression, Charcot joint, obesity presented to ER for altered mental status 11/20/21. In ER patient noted to be somnolent and having periods of apnea. he was given Narcan 0.4mg IV and became alert and oriented however shortly became somnolent again and Narcan drip started. ABG: pH: 7.2, pCO2: 45, pO2: 92, HCO3: 18 Drug screen positive for opiates Acute toxic metabolic encephalopathy- like from his narcotics/polypharmacy worsened by AARON and his CO2 narcosis - now resolved s/p narcan drip and bipap - Currently AAO and seems to be at baseline - Resumed his home oxy and oxycontin. PDMP reviewed. - Continue BIPAP hs and at sleep - Repeat ABG to ensure improvement Acute kidney injury: likely postobstructive- had 1.8 L urine output once houston placed yesterday- AARON rapidly resolved after placing houston - Cr 3.9->3->1.5->0.9. Baseline Cr: ~0.7 - CT abd/pelvis without obstruction - discussed with nephrology Urinary retention- now on houston. Will do voiding trial tomorrow. If fails- will need to place back on houston and have uro follow up Fall with L1 transverse process fracture- Reported fall when getting out of chair 5 days ago with c/o low back pain. Lumbar spine CT shows acute L1 transverse process fracture but non displaced- seen by Dr Vieyra- no interventions, not amenable to brace. Activity as tolerated. Consulted PT OT Alcohol Use, Possible Alcohol Withdrawal- Drinking 6 beers daily for past several months. thinks last drink was 2 days ago. On AWSS protocol with prn ativan. Hyperkalemia- d/t AARON. Now resolved Hyponatremia- resolving. Na 125->133. Osm normal. Obstructive sleep apnea: non-compliance with bipap Chronic narcotic use: PDMP reviewed- seems PCP has been trying to wean down his narcotics- recently filled last week. Will resume home narcotics to prevent withdrawal. will monitor, F/u PCP for further weaning down of narcotics. Hold home narcotics currently secondary to reduced consciousness DM II:A1c: 6.1. Hold home metformin. SSI HTN: Resume home losartan as AARON resolved. Dispo- Transfer out of ICU to PCU. PT eval pending. Will need voiding trial prior to discharge. DVT ppx- sc lovenox Admission and Anticipated Discharge Date Admission Date: November 20, 2021 Subjective He is fully awake alert today. He has been asking to get discharge multiple times today. States he is starting to go into oxy withdrawal and asking for his oxy (PDMP reviewed). Also states he has neuropathic pain in his right foot and is asking for his lyrica. He says he never had any issues with urination before. Discussed about his vertebral fracture and his urinary retention, houston and Aaron and the reason he needs to stay. States he does not have a BIPAP anymore and he does not think he will use it at home. Physical Exam Physical Exam: General: Lying comfortably in bed, not in distress, on room air HEENT: EOMI, JONATHAN, MMM Chest: Clear breath sounds bilaterally, no wheezes or crackles CVS: Regular rate and rhythm, normal heart sounds, no murmur Abdomen: Soft, non tender, not distended, normal bowel sounds Neuro: Awake, alert, oriented, conversing well, non focal Extremities: Left BKA. RLE with no edema. Results & Data Results & Data ([facility]) Vital Signs (Past 12 Hours) Vital Signs Temp Pulse Pulse Pulse Resp BP BP 11/21/21 15:57 36.6 C 93 H 20 144/78 H 11/21/21 15:00 103 H 11/21/21 11:31 112 H 11/21/21 11:00 36.4 C L 114 H 114 H 20 11/21/21 08:00 112 H 11/21/21 07:47 75 17 11/21/21 07:35 37.0 C 11/21/21 07:00 113 H 18 143/74 H 11/21/21 06:00 112 H 18 151/74 H 11/21/21 05:00 106 H 16 123/64 BP Pulse Ox 11/21/21 15:57 96 11/21/21 15:00 11/21/21 11:31 11/21/21 11:00 111/72 92 11/21/21 08:00 11/21/21 07:47 95 11/21/21 07:35 11/21/21 07:00 96 11/21/21 06:00 94 11/21/21 05:00 97 Laboratory Results Short CBC 11/21/21 Range/Units 03:25 WBC 7.55 (4.8-10.8) K/ul Hgb 10.5 L (14.0-18.0) g/dl Hct 34.3 L (40.1-51.0) % Plt Count 150 (130-400) K/uL BMP 11/20/21 11/21/21 11/21/21 16:43 03:25 12:23 Sodium 128 L 132 L 133 L Potassium 5.8 H 4.9 4.8 Chloride 99 102 103 Carbon Dioxide 23 23 24 BUN 49 H 43 H 36 H Creatinine 3.07 H D 1.53 H D 0.90 D Glucose 116 H 83 128 H Calcium 8.4 L 8.9 9.1 Medications Administered Current Inpatient Medications Heparin Sodium (Porcine) (Heparin Sod 5,000 Unit/0.5 Ml Vial) 5,000 units SQ Q8 TAMIKO Stop: 12/20/21 21:59 Last Admin: 11/21/21 16:26 Dose: 5,000 units Documented by: Naloxone HCl 5 mg/ Sodium (Chloride) 100 mls @ 0 mls/hr IV .Q0M TAMIKO; Protocol Stop: 12/20/21 13:14 Last Admin: 11/21/21 08:56 Dose: Not Given Documented by: Lorazepam 1 mg/ Syringe 1 mls @ 2 mls/min IV UD PRN; Protocol PRN Reason: EtOH Withdrawal AWSS Score 6,7 Stop: 12/20/21 16:30 Lorazepam 2 mg/ Syringe 2 mls @ 2 mls/min IV UD PRN; Protocol PRN Reason: EtOH Withdrawal AWSS Score 8,9 Stop: 12/20/21 16:30 Lorazepam 3 mg/ Syringe 3 mls @ 2 mls/min IV ONCE PRN; Protocol PRN Reason: EtOH Withdrawal AWSS Score >=10 Stop: 12/20/21 16:30 Miscellaneous (Icu Protocol For Hyperglycemia) 1 ea N/A PRN PRN; Protocol PRN Reason: Hyperglycemia Protocol Stop: 11/22/21 16:30 Miscellaneous (Ativan Iv Alcohol Withdrawl) 1 ea IV UD PRN; Protocol PRN Reason: EtoH Withdrawal AWSS 6-10+ Stop: 12/20/21 16:30 Oxycodone HCl (Oxycodone Hcl Ir 5 Mg Tab (Immediate Release)) 5 mg PO Q6 PRN PRN Reason: Pain Stop: 12/05/21 09:41 Last Admin: 11/21/21 16:26 Dose: 5 mg Documented by: Oxycodone HCl (Oxycodone Hcl 10 Mg Tabcr (Oxycontin)) 10 mg PO Q12 TAMIKO Stop: 12/05/21 12:39 Last Admin: 11/21/21 12:51 Dose: 10 mg Documented by: Oxymetazoline HCl (Oxymetazoline 0.05% 30 Ml Btl) 2 sprays RAMOS BID PRN PRN Reason: Nasal Congestion Stop: 12/20/21 23:05 Pantoprazole Sodium (Pantoprazole 40 Mg Tab) 40 mg PO DAILYBB TAMIKO Stop: 12/22/21 06:29 Pregabalin (Pregabalin 100 Mg Cap) 200 mg PO TID TAMIKO Stop: 12/21/21 13:59 Last Admin: 11/21/21 14:12 Dose: 200 mg Documented by: Sertraline HCl (Sertraline Hcl 50 Mg Tablet) 150 mg PO HS [facility] Stop: 12/21/21 20:59 (1) Acute respiratory failure Respiratory failure complication: hypoxia and hypercapnia Qualified Code(s): J96.01 - Acute respiratory failure with hypoxia; J96.02 - Acute respiratory failure with hypercapnia
[2021-11-21 17:32] LABS: Base Excess ABG -0.5 mEq/L (-9-1.8); HCO3 ABG 24 mmol/L (19-24); Oxygen Saturation ABG 99.2 % (90-95); PCO2 ABG 39 mmHg (35-46); PO2 ABG 95 mmHg (80-95)
[2021-11-21 17:38] LABS: Allen Test POS (Pos)
[2021-11-21] MEDS: LOSARTAN POTASSIUM 50 MG TAB PO SCH (18:34)
[2021-11-21] MEDS: LIDOCAINE 5% 1 PATCH TD SCH (18:36)
[2021-11-21] MEDS: SERTRALINE HCL 50 MG TABLET PO SCH (19:49)
[2021-11-21] MEDS ORDERED: oxyCODONE HCL 10 MG TABCR (OxyCONTIN) PO SCH (21:00)
[2021-11-22] MEDS ORDERED: HEPARIN SOD 5,000 UNIT/0.5 ML VIAL SQ ONE
[2021-11-22] MEDS: PANTOprazole 40 MG TAB PO SCH (06:04)
[2021-11-22 07:20] LABS: BUN Creatinine Ratio 41.4 (10-20); Creatinine Clr Calc Pharmacy 168.6 ml/min; Magnesium 1.8 mg/dl (1.7-2.4); Potassium 4.3 mmol/L (3.5-5.1)
[2021-11-22 07:31] LABS: Hematocrit (blood only) 31.6 % (40.1-51.0); Hemoglobin 10.1 g/dl (14.0-18.0); Mean Corpuscular Hemoglobin 26.9 pg (25.0-34.0); Mean Platelet Volume 11.4 fL (9.4-12.4); Platelet Count 110 K/uL (130-400); RDW Coefficient of Variation 16.2 % (11.5-14.5); RDW Standard Deviation 49.3 fL (36.4-46.3); Red Blood Count 3.76 M/uL (4.63-6.08); White Blood Count 3.91 K/ul (4.8-10.8)
[2021-11-22] MEDS: oxyCODONE HCL IR 5 MG TAB (IMMEDIATE RELEASE) PO PRN ×2 (07:58→14:05)
[2021-11-22] MEDS: LOSARTAN POTASSIUM 50 MG TAB PO SCH (10:32)
[2021-11-22] MEDS: oxyCODONE HCL 10 MG TABCR (OxyCONTIN) PO SCH ×2 (10:32→20:47)
[2021-11-22] MEDS: PREGABALIN 100 MG CAP PO SCH ×3 (10:32→20:46)
[2021-11-22] MEDS: ENOXAPARIN INJ 40 MG/0.4 ML SYR SQ SCH (10:33)
[2021-11-22] MEDS: LIDOCAINE 5% 1 PATCH TD SCH (10:33)
--- NOTE | 2021-11-22 12:44 | Hospitalist Progress Note ---
Date of Service November 22, 2021 Assessment & Plan (1) Acute metabolic encephalopathy: (2) Acute respiratory failure: Plan: Pt is 65 y/o M with PMH DM II, DM HTN, HLD, ENRIQUE previously noncompliant with CPAP, now on BiPAP at bedtime, Left BKA, phantom limb pain on chronic narcotic, Anxiety, depression, Charcot joint, obesity presented to ER for altered mental status 11/20/21. In ER patient noted to be somnolent and having periods of apnea. he was given Narcan 0.4mg IV and became alert and oriented however shortly became somnolent again and Narcan drip started. ABG: pH: 7.2, pCO2: 45, pO2: 92, HCO3: 18 Drug screen positive for opiates Acute toxic metabolic encephalopathy- like from his narcotics/polypharmacy worsened by AARON and his CO2 narcosis - now resolved s/p narcan drip and bipap - Currently AAO and seems to be at baseline - Resumed his home oxy and oxycontin. PDMP reviewed. - Continue BIPAP hs and at sleep - Repeat ABG 11/21 shows improvement Acute kidney injury: likely postobstructive- had 1.8 L urine output once houston placed yesterday- AARON rapidly resolved after placing houston - Cr 3.9->3->1.5->0.9->0.5. Baseline Cr: ~0.7 - CT abd/pelvis without obstruction - Nephro signed off Urinary retention- Had issues in the past and had seen urology over a year ago. Could be neurogenic bladder with diabetes and opiate use. Now on houston. Given significant urinary retention on presentation with AARON, would favor discharging on houston with OP uro evaluation. Patient is undecided. Awaiting urology input. Fall with L1 transverse process fracture- Reported fall when getting out of chair 5 days ago with c/o low back pain. Lumbar spine CT shows acute L1 transverse process fracture but non displaced- seen by Dr Vieyra- no interventions, not amenable to brace. Activity as tolerated. Consulted PT OT Alcohol Use, Possible Alcohol Withdrawal- Drinking 6 beers daily for past several months. thinks last drink was 2 days ago. On AWSS protocol with prn ativan. Hyperkalemia- d/t AARON. Now resolved Hyponatremia- resolving. Na 125->133. Osm normal. Obstructive sleep apnea: non-compliance with bipap Chronic narcotic use: PDMP reviewed- seems PCP has been trying to wean down his narcotics- recently filled last week. Resumed home narcotics to prevent withdrawal. will monitor, F/u PCP for further weaning down of narcotics. DM II:A1c: 6.1. Hold home metformin. SSI HTN: Home losartan resumed as AARON resolved. NSVT- asymptomatic, seen in tele. Electrolytes normal, echo unremarkable. Will monitor on tele. If recurs, will consult cardio. Dispo- Pending uro and PT eval. DVT ppx- sc lovenox Admission and Anticipated Discharge Date Admission Date: November 20, 2021 Subjective No new issues. He feels fine. Asking if he can go home today. Discussed about his urinary retention and AARON and options of going home with houston with OP uro follow up vs voiding trial. He is undecided. States he did have retention issues a year ago and was on houston and had seen urology. He would like to see urology for further 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s prior to discharge. Physical Exam Physical Exam: General: Lying comfortably in bed, not in distress, on room air HEENT: EOMI, JONATHAN, MMM Chest: Clear breath sounds bilaterally, no wheezes or crackles CVS: Regular rate and rhythm, normal heart sounds, no murmur Abdomen: Soft, non tender, not distended, normal bowel sounds Neuro: Awake, alert, oriented, conversing well, non focal Extremities: Left BKA. RLE with no edema. Houston with grace urine Results & Data Results & Data ([facility]) Vital Signs (Past 12 Hours) Vital Signs Temp Pulse Pulse Resp BP BP Pulse Ox 11/22/21 11:29 36.4 C L 67 16 159/83 H 90 11/22/21 08:05 36.6 C 96 H 20 151/84 H 95 11/22/21 08:00 105 H 11/22/21 03:00 36.7 C 98 H 20 149/82 H 94 Laboratory Results Short CBC 11/22/21 Range/Units 06:36 WBC 3.91 L (4.8-10.8) K/ul Hgb 10.1 L (14.0-18.0) g/dl Hct 31.6 L (40.1-51.0) % Plt Count 110 L (130-400) K/uL BMP 11/21/21 11/22/21 12:23 06:36 Sodium 133 L 133 L Potassium 4.8 4.3 Chloride 103 103 Carbon Dioxide 24 28 BUN 36 H 24 H Creatinine 0.90 D 0.58 L D Glucose 128 H 103 H Calcium 9.1 9.0 Medications Administered Current Inpatient Medications Enoxaparin Sodium (Enoxaparin Inj 40 Mg/0.4 Ml Syr) 40 mg SQ DAILY [facility] Stop: 12/22/21 08:59 Last Admin: 11/22/21 10:33 Dose: 40 mg Documented by: Lorazepam 1 mg/ Syringe 1 mls @ 2 mls/min IV UD PRN; Protocol PRN Reason: EtOH Withdrawal AWSS Score 6,7 Stop: 12/20/21 16:30 Lorazepam 2 mg/ Syringe 2 mls @ 2 mls/min IV UD PRN; Protocol PRN Reason: EtOH Withdrawal AWSS Score 8,9 Stop: 12/20/21 16:30 Lorazepam 3 mg/ Syringe 3 mls @ 2 mls/min IV ONCE PRN; Protocol PRN Reason: EtOH Withdrawal AWSS Score >=10 Stop: 12/20/21 16:30 Lidocaine (Lidocaine 5% 1 Patch) 1 patch TD QAM [facility] Stop: 12/21/21 17:14 Last Admin: 11/22/21 10:33 Dose: 1 patch Documented by: Losartan Potassium (Losartan Potassium 50 Mg Tab) 50 mg PO DAILY [facility] Stop: 12/21/21 17:14 Last Admin: 11/22/21 10:32 Dose: 50 mg Documented by: Miscellaneous (Icu Protocol For Hyperglycemia) 1 ea N/A PRN PRN; Protocol PRN Reason: Hyperglycemia Protocol Stop: 11/22/21 16:30 Miscellaneous (Ativan Iv Alcohol Withdrawl) 1 ea IV UD PRN; Protocol PRN Reason: EtoH Withdrawal AWSS 6-10+ Stop: 12/20/21 16:30 Miscellaneous (Remove Lidoderm Patch) 1 ea N/A DAILY@2100 [facility] Stop: 12/21/21 20:59 Last Admin: 11/21/21 19:49 Dose: Not Given Documented by: Oxycodone HCl (Oxycodone Hcl Ir 5 Mg Tab (Immediate Release)) 5 mg PO Q6 PRN PRN Reason: Pain Stop: 12/05/21 09:41 Last Admin: 11/22/21 07:58 Dose: 5 mg Documented by: Oxycodone HCl (Oxycodone Hcl 10 Mg Tabcr (Oxycontin)) 10 mg PO Q12 [facility] Stop: 12/05/21 12:39 Last Admin: 11/22/21 10:32 Dose: 10 mg Documented by: Oxymetazoline HCl (Oxymetazoline 0.05% 30 Ml Btl) 2 sprays RAMOS BID PRN PRN Reason: Nasal Congestion Stop: 12/20/21 23:05 Pantoprazole Sodium (Pantoprazole 40 Mg Tab) 40 mg PO DAILYBB [facility] Stop: 12/22/21 06:29 Last Admin: 11/22/21 06:04 Dose: 40 mg Documented by: Pregabalin (Pregabalin 100 Mg Cap) 200 mg PO TID [facility] Stop: 12/21/21 13:59 Last Admin: 11/22/21 10:32 Dose: 200 mg Documented by: Sertraline HCl (Sertraline Hcl 50 Mg Tablet) 150 mg PO HS [facility] Stop: 12/21/21 20:59 Last Admin: 11/21/21 19:49 Dose: 150 mg Documented by: (1) Acute respiratory failure Respiratory failure complication: hypoxia and hypercapnia Qualified Code(s): J96.01 - Acute respiratory failure with hypoxia; J96.02 - Acute respiratory failure with hypercapnia
[2021-11-22] MEDS ORDERED: SODIUM CHLORIDE 0.9% 1000ML 500 ML IV ONE (15:32)
[2021-11-22 15:47] LABS: Codeine Urine NEGATIVE ng/mL (<50); Hydrocodone Urine NEGATIVE ng/mL (<50); Hydromor Urine NEGATIVE ng/mL (<50); Morphine Urine NEGATIVE ng/mL (<50); Norhydrocodone Conf Ur NEGATIVE ng/mL (<50); Noroxycodone Urine >10000 ng/mL (<50); Oxycodone Urine 9720 ng/mL (<50); Oxymorph Urine 4380 ng/mL (<50)
--- NOTE | 2021-11-22 18:28 | Urology Consultation ---
Date of Consultation November 22, 2021 Assessment & Plan (1) Urinary retention: (2) Bladder outlet obstruction: (3) Acute renal failure: (4) Narcotic abuse: (5) Altered mental status: Patient's previous records were extensively reviewed. Discussed extensively with patient today. Patient's previous surgical interventions as well as from other work-ups as well as his recent history of acute issues with long-term chronic issues. Discussed extensively with patient. Reviewed different options. Did discuss the patient will likely need outpatient work-up and further assessment. Had started this work-up approximately a year ago when patient had his previous episode that was very similar to this. Patient denies any major issues at this time. Did discuss ongoing concerns related to bladder outlet obstruction and worsening issues. Discussed possible issues related to renal function including development of significant renal dysfunction and other problems. Patient has numerous comorbidities. Likely multifactorial issues related to the incomplete emptying concerns and emptying concerns. Discussed possible contributing factors. Reviewed different options. Reviewed different interventions and possible assessments. Patient's past medical and surgical history were reviewed and discussed as above. Most recent imaging was reviewed interpreted by myself. No hydronephrosis or stones on CT imaging. Did review different options including utilization of catheters either ind welling or intermittent catheters. Discussed possible medication options and different interventions. Discussed control of patient's other issues as well as long-term management of his chronic pain and other issues. Patient has ongoing orthopedic issues with injuries that are being monitored and managed. Patient also diabetic. Did discuss by diabetic control and long-term issues related to bladder function as well as kidney function. We will plan to have patient set up for outpatient work-up. Can finish work-up and assessment that have been discussed and likely proceed with cystoscopy at some point in order to assess the lower tract. Patient was agreeable to follow-up as an outpatient. Will at this point to monitor as needed. If sudden worsening of issues or major bother can always reevaluate however at this point we will plan for outpatient work-up and management History of Present Illness Attending Physician: Francsico Judd MD History of Present Illness Consult for urinary issues with incomplete emptying and possible retention. Patient was admitted due to multiple issues with history of narcotic overuse and found to have worsening urine output and possible obstruction issues. Per records which were extensively reviewed patient had a very similar episode approximately a year ago. Had started work-up in our office but had never completed. Patient has mild to moderate discomfort in pelvis and groin going to back and side in waves. Is dealing with acute issues with multiple comorbidities. Has been deconditioned from this. Has decreased mobility significantly with acute issues. Also has history of amputation of the left lower extremity Patient has baseline significant issues with bowel function. Does have family history of urinary issues including obstruction issues and prostate enlargement problems and male family members. Denies bleeding. No severe nausea or vomiting. Currently no fevers. Discussed with patient multifactorial nature of urinary issues, retention, and incomplete bladder emptying. Discussed concerns and issues. Discussed decreased mobility and trouble voiding. Discussed issues related to deconditioning and weakened state. Discussed possibility that patient had more moderate to severe issues and with the acute illness and deconditioning these issues became more prevalent and obvious. Discussed bowel function and possible issues related to decrease in function and its relation to other pelvic organs and systems. Discussed different medications, will use during hospitalization and their effect on ability to empty. Allergies Allergy/AdvReac Type Severity Reaction Status Date / Time ketorolac Allergy Mild BURNING Verified 11/20/21 14:36 SENSATION ciprofloxacin [From Cipro] AdvReac Intermediate upset Verified 11/20/21 14:36 stomach tramadol AdvReac Intermediate GI UPSET Verified 11/20/21 14:36 Home Medications Medication Instructions Recorded Confirmed Type insulin glargine 100 unit/mL (3 20 unit SUBCUT .DAILY@NOON 12/12/19 11/20/21 History mL) subcutaneous pen (Lantus Solostar U-100 Insulin) metformin 500 mg tablet,extended 1,000 mg PO BID 12/12/19 11/20/21 History release 24 hr pantoprazole 40 mg tablet,delayed 40 mg PO DAILYBB 11/23/20 11/20/21 History release sertraline 100 mg tablet 150 mg PO HS 11/23/20 11/20/21 History losartan 100 mg tablet 100 mg PO DAILY@1530 07/02/21 11/20/21 History oxycodone 10 mg tablet,crush 10 mg PO BID 11/20/21 11/20/21 History resistant,extended release 12 hr (OxyContin) oxycodone 5 mg tablet 5 mg PO Q5H PRN 11/20/21 11/20/21 History pregabalin 200 mg capsule 200 mg PO TID 11/20/21 11/20/21 History Patient History Medical History Abdominal pain Acquired claw toe of left foot Acute respiratory failure AARON (acute kidney injury) Altered mental status Anxiety Callus Charcot's joint of right foot Charcot's joint, left ankle and foot Chronic pain Chronic ulcer of left midfoot Depression Diabetes mellitus with diabetic polyneuropathy Diabetic ulcer of left foot DMII (diabetes mellitus, type 2) Fever GERD (gastroesophageal reflux disease) HTN (hypertension) Liver cirrhosis Metabolic encephalopathy Morbid obesity due to excess calories Multiple rib fractures involving four or more ribs Narcotic overdose OA (osteoarthritis) of knee ENRIQUE (obstructive sleep apnea) SBO (small bowel obstruction) Shortness of breath Smoker Surgical History H/O knee surgery History of bilateral knee replacement S/P AKA (above knee amputation) unilateral Left S/P trigger finger release Family History Father Lung cancer Mother Hypertension Dementia Social History Smoking Status: Current every day smoker Tobacco Type: Cigarettes Cigarettes Per Day: .5 pack; Second Hand Exposure: No; Do You Dip or Chew Tobacco: No; Tobacco Cessation Education Requested by Patient: No Hx Alcohol Use: Yes Alcohol type: beer Hx Substance Use: No Preferred Language: Frisian Communication Ability: Effective Visual Impairment: No Limitations [employer] Required: No Beliefs That Will Affect Care: None marital status: Current Living Situation: Spouse Current Living Situation Comment: At home Feels Safe at Home: Declines to Answer Assistive Devices: Prosthesis and Wheelchair Assistive Devices Comment: LLE Prosthesis Review of Systems Review of Systems: All systems reviewed & are unremarkable except as noted in HPI & below Physical Exam Physical Exam: General: Alert and oriented x 3 in no acute distress. Patient is well nourished and well kept. HEENT: Normocephalic Atraumatic. Inspection normal. Cranial Nerves 2-12 Grossly intact. Nares are clear. Neck is supple. Normal inspection of face. Normal inspection of neck. Neurologic: No deficits on inspection. Baseline for motor function and sensory. Psychologic: Normal affect. Respiratory: Nonlabored. No use of accessory muscles. No tachypnea or dyspnea. Cardiovascular: No tachycardia Skin: [place] and Dry. No rashes or visible lesions. Extremities: Left lower extremity amputation with prosthesis. Otherwise moving without issues. No motor deficits on inspection Abdomen: Moderately distended. No rebound or guarding. No Moy in place. Most recent voided specimen was clear yellow at bedside. Results & Data ([facility]) Vital Signs (Past 12 Hours) Vital Signs Temp Pulse Pulse Resp BP BP Pulse Ox 11/22/21 15:43 36.4 C L 73 16 126/68 97 11/22/21 15:00 79 11/22/21 13:53 11/22/21 11:29 36.4 C L 67 16 159/83 H 90 11/22/21 08:05 36.6 C 96 H 20 151/84 H 95 11/22/21 08:00 105 H Pulse Ox 11/22/21 15:43 11/22/21 15:00 11/22/21 13:53 97 11/22/21 11:29 11/22/21 08:05 11/22/21 08:00 PG Care Time/CCT Total # of Minutes Spent Total Time Spent with Patient: Total time spent is greater than 50% in coordination of care (as documented) at patient's floor/unit and/or counseling patient: Coding Level of Care Code 51627 Inpt Consult Level 5 Diagnoses Urinary retention R33.9 Bladder outlet obstruction N32.0 Acute renal failure N17.9 Acute renal failure type: unspecified Narcotic abuse F11.10 Altered mental status R41.82 (1) Acute renal failure Acute renal failure type: unspecified Qualified Code(s): N17.9 - Acute kidney failure, unspecified
[2021-11-22] MEDS: SERTRALINE HCL 50 MG TABLET PO SCH (20:47)
[2021-11-23] MEDS: oxyCODONE HCL IR 5 MG TAB (IMMEDIATE RELEASE) PO PRN ×3 (00:43→13:17)
[2021-11-23] MEDS: PANTOprazole 40 MG TAB PO SCH (05:36)
[2021-11-23 07:14] LABS: Hematocrit (blood only) 31.9 % (40.1-51.0); Hemoglobin 10.2 g/dl (14.0-18.0); Mean Corpuscular Hemoglobin 26.4 pg (25.0-34.0); Mean Corpuscular Volume 82.4 fL (80.0-100.0); Mean Platelet Volume 12.2 fL (9.4-12.4); Platelet Count 113 K/uL (130-400); RDW Coefficient of Variation 16.1 % (11.5-14.5); RDW Standard Deviation 48.6 fL (36.4-46.3); Red Blood Count 3.87 M/uL (4.63-6.08); White Blood Count 3.88 K/ul (4.8-10.8)
[2021-11-23 07:33] LABS: BUN Creatinine Ratio 33.3 (10-20); Creatinine Clr Calc Pharmacy 168.1 ml/min; Est GFR (African American) 124.9 ml/min; Est GFR (Non-African American) 107.8 ml/min; Potassium 4.2 mmol/L (3.5-5.1)
[2021-11-23] MEDS ORDERED: LOSARTAN POTASSIUM 50 MG TAB PO SCH (09:00)
[2021-11-23] MEDS: ENOXAPARIN INJ 40 MG/0.4 ML SYR SQ SCH (09:01)
[2021-11-23] MEDS: oxyCODONE HCL 10 MG TABCR (OxyCONTIN) PO SCH (09:01)
[2021-11-23] MEDS: PREGABALIN 100 MG CAP PO SCH ×2 (09:01→13:17)
[2021-11-23] MEDS: LIDOCAINE 5% 1 PATCH TD SCH (09:02)
--- NOTE | 2021-11-23 10:47 | Discharge Summary ---
Date of Service November 23, 2021 Admission HPI Per Admitting Provider Pt is 65 y/o M with PMH DM II, DM HTN, HLD, ENRIQUE previously noncompliant with CPAP, now on BiPAP at bedtime, Left BKA, phantom limb pain on chronic narcotic, Anxiety, depression, Charcot joint, obesity presented to ER for altered mental status. History of previous admissions for acute hypercapnic respiratory failure in setting of excessive opiate use,and was treated with BiPAP and Narcan. Also in 04/2021 admission for sepsis, patient was intubated as he was not using BiPAP was treated for pneumonia and ATN secondary to septic shock requiring dialysis. Admission 06/2021 for incarcerated umbilical hernia s/p repair. Limited history obtained from patient initially and then more awake and alert and conversive. Remaining history obtained from chart review and patients . Patients reports that patient was unable to get his oxycodone secondary to the Holiday weekend. States he was out for approximate 4 days. Reports patient picked up Rx on 11/17/21. She states he took two oxycodone when he picked them up, however she believes he has been taking them as prescribed previously. His has been dispensing his oxycodone ER BID. Gave patient one oxycodone ER last night HS. Reports urine was very dark yesterday. He didn't void very much yesterday. Patient reports he did not void today. Reports patient fell 11/15/21 when getting up out of chair, the chair leg got caught in floor boards of deck. States patient has been complaining of low back pain since fall however has been doing ADL's. reports 5:00am this am she heard a lump and saw patient sitting on floor and he stated he tried to get up out of bed without his prosthetic leg. Got patient up and was able to get him back in bed. At 9:00 am found patient lying in his bed and he was sweating and wasn't very responsive and wasn't waking up with voice and called EMS. She reports patient did not have his medication this morning. She reports his oxycodone has been lowered by PCP. She does not believe that patient has taken extra oxycodone. Patient reports is drinking 6 beers a day. thinks patient last drank 11/18/21. Patient unable to tell me last time he drank. Denies fever/chills, diaphoresis, N/V/D/C, SAINI, dizziness, syncope, vision changes, neck pain, CP, SOB, orthopnea, palpitations, cough, sore throat, choking, otalgia, rhinorrhea, abdominal pain, paresthesias, extremity weakness, extremity edema, rashes, dysuria, hematuria. In ER patient noted to be sedated and having periods of apnea. he was given Narcan 0.4mg IV and became alert and oriented however shortly became somnolent again and Narcan drip started. ER nurse attempted bladder scan however read zero, likely misread secondary to body habitus. Houston cath placed with 1800ml output. Admission Exam Per Admitting Provider General: Patient in no apparent distress on oxymask, obese Head: normocephalic, atraumatic Eyes: PERRL, EOM's intact, conjunctiva non-injected, anicteric ENT: normal inspection external ears, nose, mucous membranes moist Neck: supple, trachea midline Lungs: clear, on oxymask with sat 99%, no wheezing/rhonchi/rales CV: RRR, no murmur, RLE: 1+ pretibial edema Abd: protuberant, normal BS, soft, non-tender to palpation Ext: no cyanosis, no calf tenderness; LLE: +BKA Neuro: Initial evaluation Patient alert and oriented to person, place, season and year, no focal deficits noted (after receiving narcan). Patient then becomes more somnolent, awakens to voice and now on narcan drip Skin: warm, dry Principal Diagnosis AMS, AARON, VANESSA, L1 transverse process fracture, chronic opiate use, ENRIQUE Discharge Exam General: Lying comfortably in bed, not in distress, on room air HEENT: EOMI, JONATHAN, MMM Chest: Clear breath sounds bilaterally, no wheezes or crackles CVS: Regular rate and rhythm, normal heart sounds, no murmur Abdomen: Soft, non tender, not distended, normal bowel sounds Neuro: Awake, alert, oriented, conversing well, non focal Extremities: Left BKA. RLE with no edema. Discharge Data Allergies Allergy/AdvReac Type Severity Reaction Status Date / Time ketorolac Allergy Mild BURNING Verified 11/20/21 14:36 SENSATION ciprofloxacin [From Cipro] AdvReac Intermediate upset Verified 11/20/21 14:36 stomach tramadol AdvReac Intermediate GI UPSET Verified 11/20/21 14:36 Consultations 11/20/21 12:49 ED Decision to Admit Stat 11/20/21 15:22 Consult Nephrology Routine 11/20/21 16:31 Consult Associate Merchant Routine Consult Nephrology Routine 11/21/21 08:00 Consult Orthopedic Surgery Routine 11/22/21 07:22 Consult Urology Routine Ordered Studies 11/20/21 11:16 CT head/brain wo con Stat 11/20/21 14:07 CT abd pelvis wo con Stat CT lumbar spine wo con Stat Laboratory Results WBC 3.88 K/ul (4.8-10.8) L 11/23/21 06:41 RBC 3.87 M/uL (4.63-6.08) L 11/23/21 06:41 Hgb 10.2 g/dl (14.0-18.0) L 11/23/21 06:41 Hct 31.9 % (40.1-51.0) L 11/23/21 06:41 MCV 82.4 fL (80.0-100.0) 11/23/21 06:41 MCH 26.4 pg (25.0-34.0) 11/23/21 06:41 MCHC 32.0 g/dL (32.0-36.0) 11/23/21 06:41 RDW Std Deviation 48.6 fL (36.4-46.3) H 11/23/21 06:41 RDW Coeff of Madelyn 16.1 % (11.5-14.5) H 11/23/21 06:41 Plt Count 113 K/uL (130-400) L 11/23/21 06:41 MPV 12.2 fL (9.4-12.4) 11/23/21 06:41 Immature Gran % (Auto) 0.9 % 11/20/21 11:28 Neut % (Auto) 91.7 % 11/20/21 11:28 Lymph % (Auto) 2.7 % 11/20/21 11:28 [place] % (Auto) 4.6 % 11/20/21 11:28 Eos % (Auto) 0.0 % 11/20/21 11:28 Baso % (Auto) 0.1 % 11/20/21 11: Neut # (Auto) 10.71 K/uL (1.4-6.5) H 11/20/21 11: Lymph # (Auto) 0.31 K/uL (1.2-3.4) L 11/20/21 11:28 [place] # (Auto) 0.54 K/uL (0.24-0.82) 11/20/21 11: Eos # (Auto) 0.00 K/uL (0-0.50) 11/20/21 11:28 Baso # (Auto) 0.01 K/uL (0-0.2) 11/20/21 11: Immature Gran # (Auto) 0.11 K/uL (0.00-0.02) H 11/20/21 11:28 ABG pH 7.40 (7.35-7.45) 11/21/21 17:17 ABG pCO2 39 mmHg (35-46) 11/21/21 17:17 ABG pO2 95 mmHg (80-95) 11/21/21 17:17 ABG HCO3 24 mmol/L (19-24) 11/21/21 17:17 ABG O2 Saturation 99.2 % (90-95) H 11/21/21 17:17 ABG Base Excess -0.5 mEq/L (-9-1.8) 11/21/21 17:17 Frank Test POS (Pos) 11/21/21 17:17 Oxygen Given ROOM AIR 11/21/21 17:17 Sodium 136 mmol/L (136-145) 11/23/21 06:41 Potassium 4.2 mmol/L (3.5-5.1) 11/23/21 06:41 Chloride 104 mmol/L (98-107) 11/23/21 06:41 Carbon Dioxide 27 mmol/L (21-32) 11/23/21 06:41 Anion Gap 5 (3-11) 11/23/21 06:41 BUN 19 mg/dl (6-23) 11/23/21 06:41 Creatinine 0.57 mg/dl (0.6-1.4) L 11/23/21 06:41 Est Cr Clr Drug Dosing 168.1 ml/min 11/23/21 06:41 Est GFR ( Amer) 124.9 ml/min 11/23/21 06:41 Est GFR (Non-Af Amer) 107.8 ml/min 11/23/21 06:41 BUN/Creatinine Ratio 33.3 (10-20) H 11/23/21 06:41 Glucose 93 mg/dl (70-99(Fasting)) 11/23/21 06:41 POC Glucose 147 mg/dl (70-99) H 11/23/21 08:22 Estimat Average Glucose 128 mg/dl 11/21/21 03:25 Hemoglobin A1c 6.1 % (4.5-5.6) H 11/21/21 03:25 Osmolality 294 mOsm/kg (280-300) 11/21/21 12:23 Calcium 9.0 mg/dl (8.5-10.1) 11/23/21 06:41 Phosphorus 4.2 mg/dl (2.5-4.9) 11/21/21 03:25 Magnesium 1.8 mg/dl (1.7-2.4) 11/22/21 06:36 Total Bilirubin 0.5 mg/dl (0.2-1.0) 11/20/21 11:28 AST 26 U/L (13-39) 11/20/21 11:28 ALT 17 U/L (7-52) 11/20/21 11:28 Alkaline Phosphatase 119 U/L (34-104) H 11/20/21 11:28 Ammonia 41.0 umol/L (18-72) 11/20/21 16:43 Troponin I High Sens 10.2 pg/ml (0-20) 11/20/21 11:28 Total Protein 8.1 gm/dl (6.0-8.3) 11/20/21 11:28 Albumin 3.9 gm/dl (3.4-5.0) 11/20/21 11:28 Globulin 4.2 gm/dl (2.5-4.0) H 11/20/21 11:28 Albumin/Globulin Ratio 0.9 (0.9-2) 11/20/21 11:28 Lipase 38 U/L (11-82) 11/20/21 11:28 Urine Color Dark Yellow 11/20/21 14:38 Urine Appearance Clear (Clear) 11/20/21 14:38 Urine pH 5.0 (4.5-7.5) 11/20/21 14:38 Ur Specific [place] 1.017 (1.000-1.030) 11/20/21 14:38 Urine Protein Trace (Negative) H 11/20/21 14:38 Urine Glucose (UA) Negative (Negative) 11/20/21 14:38 Urine Ketones Trace (Negative) H 11/20/21 14:38 Urine Blood Negative (Negative) 11/20/21 14:38 Urine Nitrite Negative (Negative) 11/20/21 14:38 Urine Bilirubin Negative (Negative) 11/20/21 14:38 Urine Urobilinogen Negative (Negative) 11/20/21 14:38 Ur Leukocyte Esterase Negative (Negative) 11/20/21 14:38 Urine WBC (Auto) 1-5 /hpf (0-5) 11/20/21 14:38 Urine RBC (Auto) 5-10 /hpf (0-4) H 11/20/21 14:38 U Hyaline Cast (Auto) >30 /lpf (0-5) H 11/20/21 14:38 U Epithel Cells (Auto) 10-20 /lpf (0-5) H 11/20/21 14:38 Urine Bacteria (Auto) Negative (Negative) 11/20/21 14:38 Granular Casts 1-5 /lpf (0) H 11/20/21 14:38 Urine Mucus Present (None Prsent) A 11/20/21 14:38 Urine Osmolality 346 mOsm/kg (500-800) L 11/20/21 14:38 Ur Random Sodium 26 mmol/L 11/20/21 14:38 Nasal Screen MRSA (PCR) Negative (Negative) 11/20/21 18:00 Salicylates < 3.0 mg/dl (3.0-30) L 11/20/21 11:28 Urine Opiates Screen Pos (Neg) H 11/20/21 14:38 U Codeine Confrm GC/MS NEGATIVE ng/mL (<50) 11/20/21 14:38 Ur Morphine (GC/MS) NEGATIVE ng/mL (<50) 11/20/21 14:38 Ur Hydrocodone (GC/MS) NEGATIVE ng/mL (<50) 11/20/21 14:38 Ur Norhydrocodone NEGATIVE ng/mL (<50) 11/20/21 14:38 Ur Noroxycodone >84722 ng/mL (<50) H 11/20/21 14:38 Urine Oxycodone (GC/MS) 9720 ng/mL (<50) H 11/20/21 14:38 U Oxymorphone GC/MS 4380 ng/mL (<50) H 11/20/21 14:38 Ur Methadone, Qual Neg (Neg) 11/20/21 14:38 Ur Hydromorphone (GC/MS) NEGATIVE ng/mL (<50) 11/20/21 14:38 Acetaminophen < 3 ug/ml (10-30) L 11/20/21 11:28 Urine Barbiturates Neg (Neg) 11/20/21 14:38 Ur Phencyclidine (PCP) Neg (Neg) 11/20/21 14:38 U Amphetamin/Meth Scrn Neg (Neg) 11/20/21 14:38 MDMA (Ecstasy) Screen Neg (Neg) 11/20/21 14:38 U Benzodiazepines Scrn Neg (Neg) 11/20/21 14:38 Ur Cocaine Metabolite Neg (Neg) 11/20/21 14:38 U Marijuana (THC) Screen Neg (Neg) 11/20/21 14:38 Drug Screen Comment SEE NOTE 11/20/21 14:38 Ethyl Alcohol mg/dL < 10.0 mg/dl (<10.0) 11/20/21 11:28 SARS-CoV-2, RNA, NAAT NEGATIVE (NEGATIVE) 11/20/21 11:[address] 11/20/21 11:16 CT head/brain wo con CLINICAL HISTORY: Frequent falls. Weakness. COMPARISON STUDY: 08/03/2021 CT DOSE: 823.94 mGycm TECHNIQUE: Standard CT of the Brain was performed without IV contrast. A dose lowering technique was utilized adhering to the principles of ALARA. FINDINGS: Extraaxial space: There is no evidence for subdural hematoma. There are no extra-axial fluid collections. Ventricles and cisterns: The ventricles are normal in size and configuration. There is no evidence for midline shift or mass effect. Parenchyma: There is no subarachnoid or intraparenchymal hemorrhage. There is no evidence for an acute infarct or cerebral edema. There is homogeneous attenuation of the brain parenchyma. There are no gross mass lesions. Osseous structures: There is no evidence for an acute fracture. The visualized paranasal sinuses are clear. The mastoid air cells are clear bilaterally. Soft tissues: There is no evidence for focal soft tissue swelling. IMPRESSION: 1. No acute intracerebral pathology. ACT 112: Negative or not required by law. Electronically signed by: Edward Michaels M.D. 11/20/2021 12:35 PM Chest X-Ray 11/20/21 11:17 XR chest 1V portable CLINICAL HISTORY: Chest Pain. COMPARISON STUDY: 08/03/2021 TECHNIQUE: 1 view of the chest FINDINGS: Single frontal view of the chest demonstrates the heart to appear prominent size due to decreased inspiratory effort. Compared to previous examination, there is evidence for central vascular congestion. No peripheral interstitial or alveolar edema are seen. There is no evidence for pleural effusion. No alveolar opacities are identified. There is no acute osseous pathology. IMPRESSION: 1. Decreased inspiratory effort with evidence for central vascular congestion characteristic of early cardiac decompensation. ACT 112: Negative or not required by law. Electronically signed by: Edward Michaels M.D. 11/20/2021 12:37 PM Abdomen/Pelvis CT 11/20/21 14:[address] WITHOUT CONTRAST CT DOSE: 1378.48 mGycm HISTORY: Right back/flank pain. Acute kidney injury. TECHNIQUE: Multiaxial CT images of the abdomen and pelvis were performed without contrast. A dose lowering technique was utilized adhering to the principles of ALARA. COMPARISON STUDY: Abdomen and pelvis CT 08/03/2021. FINDINGS: There are old, healed bilateral anterior rib fractures. Acute to subacute left lateral ninth rib fracture on image 121. An acute nondisplaced right L1 transverse process fracture. Mild motion artifact. Bibasilar linear densities consistent with subsegmental atelectasis. There is also streak artifact from the patient's overlapping arms resulting in suboptimal evaluation of the abdomen. No pneumoperitoneum. No pneumatosis. Small fat-containing right inguinal hernia. Calcified plaque again noted within the coronary arteries. Mild periorbital subcutaneous fat stranding which is slightly improved. This could represent a mild residual cellulitis. Nodular contour to the liver consistent with cirrhosis. Splenomegaly persists. This is likely secondary to underlying portal hypertension. The unenhanced adrenal glands, gallbladder, and pancreas are unremarkable. No retroperitoneal lymphadenopathy. Mild calcified plaque within the normal caliber abdominal aorta. No renal or ureteral stones. No hydronephrosis. The bladder is decompressed by Houston catheter. No pelvic free fluid. Suboptimal evaluation for bowel pathology due to the lack of intravenous and oral contrast. However, there is no definite bowel wall thickening or obstruction. IMPRESSION: 1. Suboptimal evaluation of the abdomen and pelvis due to the lack of contrast, motion artifact, and streak artifact from the patient's overlapping arms. 2. No renal or ureteral stones. No hydronephrosis. 3. No definite bowel wall thickening or obstruction. 4. Cirrhotic liver with splenomegaly, unchanged. 5. Nondisplaced acute right L1 transverse process fracture. 6. Acute to subacute nondisplaced left lateral ninth rib fracture. There are few additional old, healed bilateral anterior rib fractures. ACT 112: Negative or not required by law. Electronically signed by: Rojelio Meredith M.D. 11/20/2021 4:[address] 11/20/21 14:[address] DOSE: HISTORY: fall 5 days ago. low back discomfort TECHNIQUE: Multiaxial CT images of the lumbar spine were performed and reformatted in the sagittal and coronal plane without the use of contrast. A dose lowering technique was utilized adhering to the principles of ALARA. COMPARISON: Abdomen and pelvis CT 08/03/2021. FINDINGS: There is nondisplaced right L1 transverse process fracture. No additional fractures identified within the lumbar spine. The visualized sacrum is intact. Vertebral body heights are maintained. Moderate facet degenerative changes at L3-L4, L4-5, and L5-S1. Disc spaces are preserved. No high-grade central canal stenosis by CT technique. Paravertebral soft tissues are unremarkable. IMPRESSION: Nondisplaced right L1 transverse process fracture. ACT 112: Negative or not required by law. Electronically signed by: Rojelio Meredith M.D. 11/20/2021 4:07 PM Hospital Course (1) Acute metabolic encephalopathy: (2) Acute respiratory failure: Pt is 65 y/o M with PMH DM II, DM HTN, HLD, ENRIQUE previously noncompliant with CPAP, now on BiPAP at bedtime, Left BKA, phantom limb pain on chronic narcotic, Anxiety, depression, Charcot joint, obesity presented to ER for alter ed mental status 11/20/21. In ER patient noted to be somnolent and having periods of apnea. he was given Narcan 0.4mg IV and became alert and oriented however shortly became somnolent again and Narcan drip started. ABG: pH: 7.2, pCO2: 45, pO2: 92, HCO3: 18 Drug screen positive for opiates Acute toxic metabolic encephalopathy- like from his narcotics/polypharmacy worsened by AARON and his CO2 narcosis due to noncompliance with BIPAP - now resolved s/p narcan drip and bipap - Currently AAO and seems to be at baseline - Resumed his home oxy and oxycontin without issues. PDMP reviewed. - Continue BIPAP hs and at sleep but patient is reluctant - Repeat ABG 11/21 shows improvement Acute kidney injury: likely postobstructive- had 1.8 L urine output once houston placed yesterday- AARON rapidly resolved after placing houston - Cr 3.9->3->1.5->0.9->0.5->0.5. Baseline Cr: ~0.7 - CT abd/pelvis without obstruction - Nephro signed off Urinary retention- Had issues in the past and had seen urology over a year ago. Seen by urology yesterday and recommended outpatient work up. Houston was removed yesterday and he has been voiding without issues with no post void residual. F/u with uro at discharge. Fall with L1 transverse process fracture- Reported fall when getting out of chair 5 days ago with c/o low back pain. Lumbar spine CT shows acute L1 transverse process fracture but non displaced- seen by Dr Vieyra- no interventions, not amenable to brace. Activity as tolerated. PT OT cleared for discharge home. Alcohol Use, Possible Alcohol Withdrawal- Drinking 6 beers daily for past several months. thinks last drink was 2 days ago. He was on AWSS protocol with prn ativan. No signs of withdrawal here. Hyperkalemia- d/t AARON. Now resolved Hyponatremia- resolved. Na 125->133->136. Osm normal. Obstructive sleep apnea: non-compliance with bipap. recommended to use BIPAP but patient is reluctant. Chronic narcotic use: PDMP reviewed- seems PCP has been trying to wean down his narcotics- recently filled on 11/17 for a month. Resumed home narcotics without issues. F/u PCP for further weaning down of narcotics. DM II: A1c: 6.1. Resume home lantus, meformin. HTN: Home losartan resumed as AARON resolved. NSVTx1- single episode, brief, asymptomatic, seen in tele. Electrolytes normal, echo unremarkable. No recurrence. He is comfortable and stable for discharge home. Recommended follow up with uro to complete work up as suggested and with PCP in a week to further wean down narcotics as well as repeat BMP in a week. Total Time Total Time Spent Total Time Spent (In Minutes): 45 Discharge Plan Discharge Items Patient Disposition: Home - Self-Care Reason For Visit: AMS Discharge Diagnosis: Acute toxic metabolic encephalopathy, AARON, Bladder outlet obstruction, L1 fracture, chronic opiate use Activity: Resume your previous activity Non-emergency contact: Primary Care Provider Call non-emergency contact if: you have any medication questions, your symptoms worsen, your pain is not controlled and you have a fever Follow-up/Referrals: [facility]rology [Other] (The Urology office will call you with an appointment for follow up. Please call them if you do not hear from them. [address] [place] [address] ) Karlie Bates DO [Primary Care Provider] - 11/27/21 11:00 am (Date & Time 11/27/2021 11:00 AM Provider Prashant Boykin DO Department [facility] ) Diet: Carb Consistent or DM2 and Heart Healthy Addtl Attending Provider Instructions: Recommend to cut down on your oxycodone. Follow up with family doctor for further weaning down as well as repeat blood work BMP in a week. Follow up with urology for further work up of your urinary retention You also have lumbar fracture from the fall but orthopedics did not recommend any intervention or brace. If worsening back pain or neurologic symptoms, follow up with Dr Vieyra. Recommend BIPAP use with sleep and at night Pending Studies at Discharge: No Stand-Alone Forms: My [employer], Smoking Cessation Medications and DC Order Prescriptions: Continued metformin 500 mg tablet extended release 24 hr 1,000 mg PO BID RF: 0 insulin glargine [Lantus Solostar U-100 Insulin] 100 unit/mL (3 mL) Insulin Pen 20 unit SUBCUT .DAILY@NOON RF: 0 sertraline 100 mg tablet 150 mg PO HS RF: 0 pantoprazole 40 mg tablet,delayed release (DR/EC) 40 mg PO DAILYBB RF: 0 pregabalin 200 mg capsule 200 mg PO TID RF: 0 oxycodone [OxyContin] 10 mg tablet,oral only,ext.rel.12 hr 10 mg PO BID RF: 0 losartan 100 mg tablet 100 mg PO DAILY@1530 RF: 0 Changed oxycodone 5 mg tablet 5 mg PO Q8 PRN (Reason: Moderate Pain (Scale Score 5-6)) Qty: 0 RF: 0 Discharge Orders: Discharge Order (Routine); Ordered 11/23/21 Ordered By: Francisco Lantigua/Other Patient Handouts: Managing Type 2 Diabetes Admission Data Admit Date/Time: 11/20/21 14:17 Attending Provider: Francisco Judd Admit Provider: Jodie Medley Primary Care Provider: Karlie Bates Other Providers: Dennis Koroma ; Jodie Medley ; Olman Patel ; Olman Vieyra ; Nilay Son
== END 2021-11-23 16:27 | disposition home or self-care (01) | DRG 917 ==
LOC: ED 10:56 → 1E 14:17 → SUATTDRO 14:17 → 1E 18:39 → 2S 11-21 10:58